=== PATIENT | male | born 1960 | race Hispanic/Latino ===

== ENCOUNTER 2018-03-12 20:16 | Inpatient (IN) | payer OTHER ==
[2018-03-12 21:22] LABS: Potassium 3.6 mmol/L (3.5-5.1)
--- NOTE | 2018-03-12 21:28 | EDPHYS ---
Physician Documentation [facility] Name: Javier Saravia Age: 57 yrs Sex: Male : 1960 Arrival Date: 03/12/2018 Time: 20:20 Bed 5 Private MD: Ernie Eric C ED Physician Slim Fuchs HPI: 03/12 20:46 This 57 yrs old Male presents to ER via Ambulatory with complaints of rn CELLULITIS. 20:46 The patient presents with cellulitis of the left leg. Description: erythematous, rn swollen, warm. Onset: The symptoms/episode began/occurred 4 day(s) ago. Modifying factors: the symptoms are alleviated by nothing, the symptoms are aggravated by squeezing the lesion and expressing the contents, touching. Severity of symptoms: At their worst the symptoms were mild, in the emergency department the symptoms are unchanged. The patient has not experienced similar symptoms in the past. The patient has not recently seen a physician. Reports on abx for 4 days now, treated for cellulitis, by Dr. Eric, has psoriasis and was in high [place] recently, despite abx, cellulitis getting worse, + increased swelling and drainage from wounds, no fever. . Historical: - Allergies: 20:28 Codeine (Vomiting, Upset stomach); aj1 - Home Meds: 20:28 bumetanide 1 mg Oral tab 0.5 tab once daily [Active]; amlodipine 10 mg tab 1 tab once aj1 daily [Active]; pantoprazole 40 mg Oral TbEC once daily [Active]; propranolol 10 mg Oral tab once a day [Active]; amiloride 5 mg oral tab 1 tab once daily [Active]; - PMHx: 20:28 Cirrhosis; Hypertension; psoriasis; aj1 - PSHx: 20:28 finger surgery; ankle surgery; Hernia repair; Knee surgery; aj1 - Immunization history:: Flu vaccine is not up to date. - Social history:: Smoking status: Patient/guardian denies using tobacco. - Ebola Screening: : Patient denies travel to an Ebola-affected area in the 21 days before illness onset. - Family history:: not pertinent. - Hospitalizations: : No recent hospitalization is reported. ROS: 20:46 Constitutional: Negative for fever, chills, and weight loss, Eyes: Negative for injury, rn pain, redness, and discharge, Neck: Negative for injury, pain, and swelling, Cardiovascular: Negative for chest pain, palpitations, and edema, Respiratory: Negative for shortness of breath, cough, wheezing, and pleuritic chest pain, Abdomen/GI: Negative for abdominal pain, nausea, vomiting, diarrhea, and constipation, MS/Extremity: Negative for injury and deformity, Skin: + rash and swelling Neuro: Negative for headache, weakness, numbness, tingling, and seizure. Exam: 20:46 Constitutional: This is a well developed, well nourished patient who is awake, alert, rn and in no acute distress. Head/Face: Normocephalic, atraumatic. Cardiovascular: Regular rate and rhythm with a normal S1 and S2. No gallops, murmurs, or rubs. Normal PMI, no JVD. No pulse deficits. Respiratory: Lungs have equal breath sounds bilaterally, clear to auscultation and percussion. No rales, rhonchi or wheezes noted. No increased work of breathing, no retractions or nasal flaring. Abdomen/GI: soft, non-tender Skin: Warm, dry, 2+ edema of LLE with greater circumference than RLE, + weeping wounds and bullae, +erythema and warmth, no streaking MS/ Extremity: Pulses equal, no cyanosis. Neuro: Awake and alert, GCS 15, oriented to person, place, time, and situation. Cranial nerves II-XII grossly intact. Motor strength 5/5 in all extremities. Sensory grossly intact. Cerebellar exam normal. Normal gait. Vital Signs: 20:28 BP 119 / 56; Pulse 70; Resp 18; Temp 97.2; Pulse Ox 99% on R/A; Weight 112.94 kg (R); aj1 Height 5 ft. 8 in. (172.72 cm) (R); Pain 7/10; 22:49 BP 120 / 63; Pulse 61; Resp 16 S; Pulse Ox 98% on R/A; jd3 23:51 BP 118 / 64; Pulse 65; Resp 16 S; Pulse Ox 98% on R/A; jd3 20:28 Body Mass Index 37.86 (112.94 kg, 172.72 cm) aj MDM: 20:30 Patient medically screened. rn 21:26 Differential diagnosis: cellulitis. Data reviewed: vital signs, nurses notes, lab test rn result(s), and as a result, I will admit patient. Counseling: I had a detailed discussion with the patient and/or guardian regarding: the historical points, exam findings, and any diagnostic results supporting the discharge/admit diagnosis, lab results, the need for further work-up and treatment in the hospital. Admission orders: after a detailed discussion of the patient's condition and case, the admit orders are written by me. ED course: Admitted to jodie Betancourt ordered, admit for failure of outpt therapy. . 03/12 20:37 Order name: CBC with Diff rn 03/12 20:37 Order name: Basic Metabolic Panel; Complete Time: 21:25 rn 03/12 20:37 Order name: Blood Culture Adult (2) rn 03/12 20:37 Order name: Procalcitonin rn 03/12 20:37 Order name: Wound Culture rn 03/12 21:35 Order name: Basic Metabolic Panel EDMS 03/12 21:35 Order name: Heart Healthy EDMS 03/12 21:35 Order name: Basic Metabolic Panel EDMS 03/12 21:35 Order name: CBC with Automated Diff EDMS 03/12 21:35 Order name: CBC with Automated Diff EDMS 03/12 22:32 Order name: Manual Differential EDMS 03/12 20:37 Order name: IV Start; Complete Time: 20:45 rn Administered Medications: 21:57 Drug: Zosyn 3.375 grams Route: IVPB; Infused Over: 60 mins; Site: right antecubital; lp1 23:09 Follow up: Response: No adverse reaction; IV Status: Completed infusion jd3 23:00 Drug: Demerol - Meperidine 12.5 mg Route: IVP; Site: right antecubital; jd3 23:19 Follow up: Response: No adverse reaction jd3 23:09 Drug: vancoMYCIN 1 grams Route: IVPB; Infused Over: 2 hrs; Site: right antecubital; jd3 23:19 Follow up: IV Status: Infusion continued upon admission jd3 Disposition: 03/12/18 21:27 Hospitalization ordered by Ernie Eric for Inpatient Admission. Preliminary diagnosis is Cellulitis of left lower limb. - Bed requested for Telemetry/MedSurg (Inpatient). - Status is Inpatient Admission. jd3 - Condition is Stable. - Problem is an ongoing problem. - Symptoms are unchanged. UTI on Admission? No Signatures: Dispatcher [employer] EDMS Rosemarie Singh RN RN aj1 Josie Moore RN RN Slim Paez MD MD rn Pena, Laura, RN RN lp1 Fazal Moore RN RN jd3 Corrections: (The following items were deleted from the chart) 22:02 21:27 Hospitalization Ordered by A Hernesto CORONA for Inpatient Admission. Preliminary kl diagnosis is Cellulitis of left lower limb. Bed requested for Telemetry/MedSurg (Inpatient). Status is Inpatient Admission. Condition is Stable. Problem is an ongoing problem. Symptoms are unchanged. UTI on Admission? No. rn 22:14 22:02 03/12/2018 21:27 Hospitalization Ordered by A Hernesto CORONA for Inpatient Admission. rn Preliminary diagnosis is Cellulitis of left lower limb. Bed requested for Telemetry/MedSurg (Inpatient). Status is Inpatient Admission. Condition is Stable. Problem is an ongoing problem. Symptoms are unchanged. UTI on Admission? No. kl 23:52 22:14 03/12/2018 21:27 Hospitalization Ordered by A Hernesto CORONA for Inpatient Admission. jd3 Preliminary diagnosis is Cellulitis of left lower limb. Bed requested for Telemetry/MedSurg (Inpatient). Status is Inpatient Admission. Condition is Stable. Problem is an ongoing problem. Symptoms are unchanged. UTI on Admission? No. rn
--- NOTE | 2018-03-12 21:28 | ER ---
Nurse's Notes [facility] Name: Javier Saravia Age: 57 yrs Sex: Male : 1960 Arrival Date: 03/12/2018 Time: 20:20 Bed 5 Private MD: Ernie Eric C Diagnosis: Cellulitis of left lower limb Presentation: 03/12 20:21 Presenting complaint: Patient states: He went to Dr. Eric on Wednesday and was aj1 diagnosed with cellulitis of the left leg and was sent home with Rx for Levaquin and Augmentin. He was instructed to come to the ER immediately if the symptoms worsened. Patient states that the redness and increased and he has had more blistering and drainage. Transition of care: patient was not received from another setting of care. Onset of symptoms was March 09, 2018. Risk Assessment: Do you want to hurt yourself or someone else? Patient reports no desire to harm self or others. Initial Sepsis Screen: Does the patient meet any 2 criteria? No. Patient's initial sepsis screen is negative. Does the patient have a suspected source of infection? Yes: Skin breakdown/wound. Care prior to arrival: None. 20:21 Method Of Arrival: Ambulatory aj1 20:21 Acuity: RD 3 aj1 Triage Assessment: 20:28 General: Appears in no apparent distress. comfortable, Behavior is calm, cooperative, aj1 appropriate for age. Pain: Complains of pain in left leg Pain currently is 7 out of 10 on a pain scale. Neuro: Level of Consciousness is awake, alert, obeys commands. Cardiovascular: Patient's skin is warm and dry. Respiratory: Airway is patent Respiratory effort is even, unlabored, Respiratory pattern is regular, symmetrical. Historical: - Allergies: 20:28 Codeine (Vomiting, Upset stomach); aj1 - Home Meds: 20:28 bumetanide 1 mg Oral tab 0.5 tab once daily [Active]; amlodipine 10 mg tab 1 tab once aj1 daily [Active]; pantoprazole 40 mg Oral TbEC once daily [Active]; propranolol 10 mg Oral tab once a day [Active]; amiloride 5 mg oral tab 1 tab once daily [Active]; - PMHx: 20:28 Cirrhosis; Hypertension; psoriasis; aj1 - PSHx: 20:28 finger surgery; ankle surgery; Hernia repair; Knee surgery; aj1 - Immunization history:: Flu vaccine is not up to date. - Social history:: Smoking status: Patient/guardian denies using tobacco. - Ebola Screening: : Patient denies travel to an Ebola-affected area in the 21 days before illness onset. - Family history:: not pertinent. - Hospitalizations: : No recent hospitalization is reported. Screenin:39 Abuse screen: Denies threats or abuse. Nutritional screening: No deficits noted. jd3 Tuberculosis screening: No symptoms or risk factors identified. Fall Risk Ambulatory Aid- None/Bed Rest/Nurse Assist (0 pts). Gait- Normal/Bed Rest/Wheelchair (0 pts) Mental Status- Oriented to own ability (0 pts). Total Bustamante Fall Scale indicates No Risk (0-24 pts). Assessment: 20:36 General: Appears in no apparent distress. uncomfortable, Behavior is calm, cooperative, jd3 appropriate for age. Pain: Complains of pain in right leg and left leg Quality of pain is described as aching. Neuro: Level of Consciousness is awake, alert, obeys commands, Oriented to person, place, time, situation, Appropriate for age. Cardiovascular: Capillary refill < 3 seconds Patient's skin is warm and dry. Respiratory: Airway is patent Respiratory effort is even, unlabored, Respiratory pattern is regular, symmetrical. GI: Abdomen is round non-distended. : No signs and/or symptoms were reported regarding the genitourinary system. EENT: No signs and/or symptoms were reported regarding the EENT system. Derm: Skin is intact, Skin is dry, Skin is normal, Skin temperature is warm Wound noted lower right leg and left leg Wound is weeping wounds, redness and swelling noted. Musculoskeletal: Circulation, motion, and sensation intact. Range of motion: intact in all extremities, Swelling present in lower right leg and left leg. 22:50 Reassessment: Patient appears in no apparent distress at this time. Patient and/or jd3 family updated on plan of care and expected duration. Pain level reassessed. Patient is alert, oriented x 3, equal unlabored respirations, skin warm/dry/pink. 23:51 Reassessment: Patient appears in no apparent distress at this time. Patient and/or jd3 family updated on plan of care and expected duration. Pain level reassessed. Patient is alert, oriented x 3, equal unlabored respirations, skin warm/dry/pink. Vital Signs: 20:28 BP 119 / 56; Pulse 70; Resp 18; Temp 97.2; Pulse Ox 99% on R/A; Weight 112.94 kg (R); aj1 Height 5 ft. 8 in. (172.72 cm) (R); Pain 7/10; 22:49 BP 120 / 63; Pulse 61; Resp 16 S; Pulse Ox 98% on R/A; jd3 23:51 BP 118 / 64; Pulse 65; Resp 16 S; Pulse Ox 98% on R/A; jd3 20:28 Body Mass Index 37.86 (112.94 kg, 172.72 cm) aj1 ED Course: 20:20 Patient arrived in ED. es 20:20 Ernie Eric MD is Private Physician. es 20:25 Triage completed. aj1 20:28 Arm band placed on Patient placed in an exam room. aj1 20:30 Slim Fuchs MD is Attending Physician. rn 20:36 Fazal Moore RN is Primary Nurse. jd3 20:45 Inserted saline lock: 20 gauge in right antecubital area, using aseptic technique. jd3 Blood collected. placed by [employer]. 20:46 Patient has correct armband on for positive identification. Bed in low position. Call jd3 light in reach. Side rails up X 1. Adult w/ patient. 21:27 Ernie Eric MD is Hospitalizing Provider. rn 23:19 No provider procedures requiring assistance completed. Patient admitted, IV remains in lp1 place. Administered Medications: 21:57 Drug: Zosyn 3.375 grams Route: IVPB; Infused Over: 60 mins; Site: right antecubital; lp1 23:09 Follow up: Response: No adverse reaction; IV Status: Completed infusion jd3 23:00 Drug: Demerol - Meperidine 12.5 mg Route: IVP; Site: right antecubital; jd3 23:19 Follow up: Response: No adverse reaction jd3 23:09 Drug: vancoMYCIN 1 grams Route: IVPB; Infused Over: 2 hrs; Site: right antecubital; jd3 23:19 Follow up: IV Status: Infusion continued upon admission jd3 Outcome: 21:27 Decision to Hospitalize by Provider. rn 23:20 Condition: stable lp1 23:20 Instructed on the need for admit. 23:31 Admitted to Med/surg accompanied by tech, via wheelchair, room 204, with chart, Report lp1 called to [place] Reza 23:52 Patient left the ED. jd3 Signatures: Rosemarie Singh RN RN aj1 Annamaria Pablo Roman, MD MD rn Pena, Laura, RN RN lp1 Fazal Moore RN RN jiesha Corrections: (The following items were deleted from the chart) 20:40 20:36 Musculoskeletal: Circulation, motion, and sensation intact. Range of motion: jd3 intact in all extremities, jd3
[2018-03-12] MEDS ORDERED: ONDANSETRON 4 MG/2 ML VIAL IV PRN (21:31)
[2018-03-12] MEDS ORDERED: VANCOMYCIN 1 GM/250 ML BAG ONE (21:51)
[2018-03-12] MEDS ORDERED: PIPER/TAZO/NS 3.375gm 3.375 GM/100 ML BAG ONE (21:52)
[2018-03-12 22:07] LABS: Absolute Lymphocytes (CBC) 1.2 K/uL (0.7-4.9); Absolute Monocytes 1.8 K/uL (0.1-1.3); Absolute Neutrophil 8.2 K/uL (1.8-8.0); Basophils % 0.5 % (0-1.3); Eosinophils % 1.4 % (0-4.4); Hematocrit 37.7 % (39.6-49.0); Lymphocytes % 10.7 % (15.3-44.8); MCH 35.9 pg (27.0-35.0); MCV 103.1 fL (80-100); MPV 9.3 fL (7.6-11.3); Monocytes % 15.7 % (3.3-12.3); RBC Red Blood Cell Count 3.65 M/uL (4.33-5.43)
[2018-03-12 22:31] LABS: Blood Morphology Comment NOT SEEN (NOT SEEN); Platelet Estimate DECR
[2018-03-12] MEDS ORDERED: VANCOMYCIN 1GM/D5W 1 GM/200 ML BAG IV ONE (23:00)
[2018-03-12] MEDS ORDERED: MEPERIDINE HCL 50 MG/ML AMP ONE (23:09)
[2018-03-13] MEDS: NA CHLORIDE 0.9% 1,000 ML IV SCH ×3 (00:12→15:54)
[2018-03-13 01:42] LABS: Urine Appearance CLEAR; Urine Blood NEGATIVE (NEG); Urine Color ORANGE; Urine Glucose NEGATIVE (NEG); Urine Protein NEGATIVE (NEG); Urine Specific Gravity 1.015 (1.005-1.030); Urine pH 5.5 (5.0-7.0)
[2018-03-13 02:38] LABS: Urine Bilirubin 2+ (NEG); Urine Microscopic Reflex ORDER UMIC
[2018-03-13 03:39] LABS: Urine Bacteria <20 /HPF (NONE SEEN); Urine Culture Reflex Order REFLEXED; Urine RBC NONE SEEN /HPF (NONE SEEN)
[2018-03-13] MEDS ORDERED: PIPER/TAZO/NS 3.375gm 3.375 GM/100 ML BAG ONE (03:43)
[2018-03-13] MEDS ORDERED: PIPER/TAZO/NS 3.375gm 3.375 GM/100 ML BAG IVPB SCH (04:00)
[2018-03-13 06:11] LABS: Potassium 3.5 mmol/L (3.5-5.1)
[2018-03-13 06:35] LABS: Absolute Lymphocytes (CBC) 1.3 K/uL (0.7-4.9); Absolute Monocytes 1.5 K/uL (0.1-1.3); Absolute Neutrophil 5.5 K/uL (1.8-8.0); Basophils % 1.3 % (0-1.3); Eosinophils % 2.2 % (0-4.4); Hematocrit 34.5 % (39.6-49.0); Lymphocytes % 14.6 % (15.3-44.8); MCH 35.8 pg (27.0-35.0); MCV 103.1 fL (80-100); MPV 8.9 fL (7.6-11.3); RBC Red Blood Cell Count 3.35 M/uL (4.33-5.43)
[2018-03-13] MEDS ORDERED: VANCOMYCIN/NS 1 gm 1 GM/250 ML BAG IV ONE (07:45)
[2018-03-13] MEDS ORDERED: VANCOMYCIN 1GM/D5W 1 GM/200 ML BAG IV SCH (09:00)
[2018-03-13] MEDS: LACTULOSE 20 GM/30 ML UCUP PO SCH (09:00)
[2018-03-13] MEDS: BUMETANIDE 1 MG TABLET PO SCH (09:02)
[2018-03-13] MEDS: PANTOPRAZOLE 40MG TABLET PO SCH (09:03)
[2018-03-13] MEDS: PROPRANOLOL HCL 10 MG TAB PO SCH ×2 (09:03→20:41)
[2018-03-13] MEDS ORDERED: TRAMADOL HCL 50 MG TAB PO PRN (09:07)
[2018-03-13] MEDS: AMILORIDE HCL 5 MG TABLET PO SCH (09:36)
[2018-03-13] MEDS: GUAIFENESIN/DM 5 ML UCUP PO PRN ×3 (09:37→22:51)
[2018-03-13] MEDS: ACETAMINOPHEN 500 MG TAB PO PRN ×2 (16:56→22:51)
[2018-03-13] MEDS: PIPER/TAZO/NS 3.375gm 3.375 GM/100 ML BAG IVPB SCH (16:57)
[2018-03-13] MEDS ORDERED: VANCOMYCIN 2 GM/500 ML BAG IV SCH (22:00)
[2018-03-14] MEDS: PIPER/TAZO/NS 3.375gm 3.375 GM/100 ML BAG IVPB SCH ×3 (00:16→17:21)
[2018-03-14] MEDS ORDERED: NA CHLORIDE 0.9% 50 ML ONE (00:25)
[2018-03-14] MEDS: NA CHLORIDE 0.9% 1,000 ML IV SCH ×2 (03:12→18:50)
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
[2018-03-14] MEDS: PANTOPRAZOLE 40MG TABLET PO SCH (05:58)
[2018-03-14 08:12] LABS: Absolute Monocytes 1.2 K/uL (0.1-1.3); Absolute Neutrophil 5.6 K/uL (1.8-8.0); Basophils % 0.8 % (0-1.3); Eosinophils % 2.7 % (0-4.4); Hematocrit 35.7 % (39.6-49.0); Lymphocytes % 12.3 % (15.3-44.8); MCV 105.3 fL (80-100); MPV 8.3 fL (7.6-11.3); Monocytes % 14.5 % (3.3-12.3); RBC Red Blood Cell Count 3.39 M/uL (4.33-5.43)
[2018-03-14 08:42] LABS: Potassium 3.8 mmol/L (3.5-5.1)
[2018-03-14] MEDS: BUMETANIDE 1 MG TABLET PO SCH (09:00)
[2018-03-14] MEDS: LACTULOSE 20 GM/30 ML UCUP PO SCH (09:00)
[2018-03-14] MEDS: PROPRANOLOL HCL 10 MG TAB PO SCH ×2 (09:00→21:00)
[2018-03-14] MEDS: AMILORIDE HCL 5 MG TABLET PO SCH (09:35)
[2018-03-14] MEDS: VANCOMYCIN 2 GM in NA CHLORIDE 0.9% 500 ML IVPB SCH (09:40)
[2018-03-14] MEDS: ACETAMINOPHEN 500 MG TAB PO PRN ×2 (11:27→22:26)
[2018-03-14] MEDS: GUAIFENESIN/DM 5 ML UCUP PO PRN ×2 (11:28→22:25)
--- OUTSIDE RECORDS SUMMARY | 2018-03-14 12:01 | XMS REPORT | Clinical Summary ---
:1960 Author Organization [facility] Address [address] [place] [address] Care Team Providers Name Role Phone Provider, Unknown Primary Care Provider Unavailable Allergies Active Allergy Reactions Severity Noted Date Comments Codeine Nausea Only 04/23/2016 Current Medications Prescription Sig. Disp. Refills Start Date End Date Status amLODIPine (NORVASC) Take 10 mg Active 10 mg tablet by mouth daily. pantoprazole Take 1 90 tablet 3 03/19/2017 03/19/2018 Active (PROTONIX) 40 MG EC tablet (40 tabletIndications: mg total) by Alcoholic cirrhosis mouth daily. of liver with ascites, Awaiting liver transplant lactulose 10 gram/15 Take 30 mL 1800 mL 11 09/16/2017 09/16/2018 Active mL (15 mL) (20 g total) solutionIndications: by mouth 2 Alcoholic cirrhosis (two) times of liver with a day. ascites, Awaiting liver transplant, Hepatic encephalopathy AMILoride (MIDAMOR) 5 Take 1 90 tablet 3 09/16/2017 09/16/2018 Active MG tabletIndications: tablet (5 mg Alcoholic cirrhosis total) by of liver with mouth daily. ascites, Awaiting liver transplant, Hepatic encephalopathy BUMETanide (BUMEX) Take 0.5 mg Active 0.5 MG tablet by mouth daily. propranolol (INDERAL) Take 10 mg Active 10 MG tablet by mouth 2 (two) times a day. ergocalciferol Take 50,000 10/27/2017 Discontinued (VITAMIN D2) 50,000 Units by unit capsule mouth. levofloxacin Take 750 mg 09/16/2017 Discontinued (LEVAQUIN) 750 MG by mouth. tablet potassium chloride Take 20 mEq 09/16/2017 Discontinued (K-DUR) 20 MEQ CR by mouth. tablet lactulose 20 gram/30 Take 15 mL 900 mL 11 06/18/2016 06/18/2017 mL (10 g total) solutionIndications: by mouth 2 Hepatic (two) times encephalopathy, a day. Awaiting liver transplant, Cirrhosis of liver with ascites, unspecified hepatic cirrhosis type levothyroxine Take 50 mcg 10/27/2017 Discontinued (SYNTHROID, LEVOXYL) by mouth 50 mcg tablet every morning. propranolol (INDERAL) Take 1 90 tablet 3 12/02/2016 03/19/2017 Discontinued 10 MG tablet (10 tabletIndications: mg total) by Alcoholic cirrhosis mouth daily. of liver with ascites, Awaiting liver transplant BUMETanide (BUMEX) Take 1 90 tablet 3 12/02/2016 03/19/2017 Discontinued 0.5 MG tablet (0.5 tabletIndications: mg total) by Alcoholic cirrhosis mouth daily. of liver with ascites, Awaiting liver transplant pantoprazole Take 1 90 tablet 3 12/02/2016 03/19/2017 Discontinued (PROTONIX) 40 MG EC tablet (40 tabletIndications: mg total) by Alcoholic cirrhosis mouth daily. of liver with ascites, Awaiting liver transplant BUMETanide (BUMEX) 1 Take 1 90 tablet 3 03/19/2017 10/27/2017 Discontinued MG tabletIndications: tablet (1 mg Alcoholic cirrhosis total) by of liver with mouth daily. ascites, Awaiting liver transplant propranolol (INDERAL) Take 1 90 tablet 3 03/19/2017 10/27/2017 Discontinued 10 MG tablet (10 tabletIndications: mg total) by Alcoholic cirrhosis mouth daily. of liver with ascites, Awaiting liver transplant lactulose 10 gram/15 Take 20 g by 09/16/2017 Discontinued mL (15 mL) solution mouth 2 (two) times a day. potassium chloride Take 1 3 tablet 0 09/16/2017 09/19/2017 (K-DUR) 20 MEQ CR tablet (20 tabletIndications: mEq total) Alcoholic cirrhosis by mouth of liver with daily for 3 ascites, Awaiting days. liver transplant, Hepatic encephalopathy Active Problems Problem Noted Date Preop cardiovascular exam 10/26/2017 Overview: Added automatically from request for surgery [id number] Awaiting liver transplant 09/16/2017 Alcoholic cirrhosis of liver with ascites 02/27/2016 Hepatic encephalopathy 02/27/2016 Portal hypertension 02/27/2016 Secondary esophageal varices without bleeding 02/27/2016 Decompensation of cirrhosis of liver 02/27/2016 Encounters Date Type Specialty Care Team Description 03/08/2018 Orders Only Transplant Sid, Alcoholic cirrhosis of liver without ascites (Primary Dx); [facility] Awaiting liver transplant 01/24/2018 Orders Only Transplant Sid, Alcoholic cirrhosis of liver without ascites (Primary Dx); [facility] Awaiting liver transplant; Personal history of noncompliance with medical treatment, presenting hazards to health 2017 Orders Only Transplant Sid, Awaiting liver transplant; [place] [facility] Alcoholic cirrhosis of liver without ascites 10/29/2017 Orders Only Transplant Sid, Awaiting liver transplant; [place] [facility] Alcoholic cirrhosis of liver without ascites 10/27/2017 Hospital Encounter Procedural Rohan Mullen, Alcoholic cirrhosis of liver with ascites; Cardiology Preop cardiovascular exam; Awaiting liver transplant 10/27/2017 Procedure Pass Procedural Cardiology 10/27/2017 Surgery Procedural Rohan Mullen, Cv right and left Cardiology heart cath selective angiography lv [85179 (CPT)] 10/26/2017 Transcribe Orders Transplant Torie Brantley, Alcoholic cirrhosis of liver with ascites (Primary Dx); RN Preop cardiovascular exam; Awaiting liver transplant 10/08/2017 Abstract Transplant Marimar Lau RN 10/08/2017 Telephone Transplant Sid, Increase in [facility] creatinine 10/01/2017 Orders Only Transplant Sid, Awaiting liver transplant; [place] [facility] Alcoholic cirrhosis of liver without ascites 09/27/2017 Telephone Transplant Sid Repat labs next week [facility] 09/16/2017 Hospital Encounter Transplant Ankoma-Sey, Awaiting liver transplant (Primary Dx); MD Reynaldo Alcoholic cirrhosis of liver with ascites 09/16/2017 Hospital Encounter Procedural Ankoma-Sey, Awaiting liver transplant; Cardiology MD Reynaldo Alcoholic cirrhosis of liver without ascites 09/16/2017 Hospital Encounter Transplant Ankoma-Sey, Awaiting liver transplant; MD Reynaldo Alcoholic cirrhosis of liver without ascites 09/16/2017 Hospital Encounter Radiology Ankoma-Sey, Awaiting liver transplant; MD Reynaldo Alcoholic cirrhosis of liver without ascites 09/16/2017 Refill Transplant Sid, Med Refill [facility] 09/16/2017 Telephone Transplant Lor Marcelino Critical Result M, MA 09/03/2017 Orders Only Transplant Sid, Awaiting liver transplant; [place] [facility] Alcoholic cirrhosis of liver without ascites 08/30/2017 Documentation Transplant Sid, MELD updated to 10 [facility] labs due 08/27/2018 07/26/2017 Procedure Pass Radiology 07/26/2017 Orders Only Transplant Sid, Alcoholic cirrhosis of liver without ascites (Primary Dx); [facility] Awaiting liver transplant 07/15/2017 Documentation Transplant Sid, MELD updated to 11, [facility] labs due 10/13/2017 07/14/2017 Hospital Encounter Transplant AnkIsha, Canceled (Scheduling MD Reynaldo Error) 07/13/2017 Telephone Transplant RainBest villalobos TXP LISTING FINANCIALLY APPROVED 07/12/2017 Documentation Transplant Sid, LAB Order [facility] 07/12/2017 Orders Only Transplant Sid, Alcoholic cirrhosis of liver without ascites (Primary Dx); [facility] Awaiting liver transplant 07/12/2017 Telephone Transplant Regina Lawson TXP Approved 07/09/2017 Documentation Transplant Marimar Lau RN 07/08/2017 Orders Only Transplant Sid, Alcoholic cirrhosis of liver without ascites (Primary Dx); [facility] Awaiting liver transplant; BRITT (nonalcoholic steatohepatitis) 07/08/2017 Telephone Transplant José Miguelhe, Speak to Coordinator GAYE Perales 07/08/2017 Telephone Transplant Gurinder Bernardo MA Update Insurance Information 05/27/2017 Telephone Transplant Ryalnd Lor Insurance Coverage GAYE Robertson Questions 05/19/2017 Telephone Transplant Best Rain TXP Medicare Part D Inactive 03/19/2017 Refill Transplant Sid, David Refill [facility] 03/18/2017 Hospital Encounter Transplant Luis Miguel Vazquez Alcoholic cirrhosis MD Chris of liver with ascites (Primary Dx) 03/18/2017 Hospital Encounter Procedural Ankoma-Sey, Awaiting liver transplant; Cardiology MD Reynaldo Alcoholic cirrhosis of liver with ascites 03/18/2017 Hospital Encounter Radiology Ankoma-Sey, Awaiting liver transplant; MD Reynaldo Alcoholic cirrhosis of liver with ascites 03/18/2017 Hospital Encounter Transplant Ankoma-Sey, Awaiting liver transplant; MD Reynaldo Alcoholic cirrhosis of liver with ascites 12/16/2016 Procedure Pass Radiology after 03/13/2017 Social History Tobacco Use Types Packs/Day Years Used Date Never Smoker Smokeless Tobacco: Never Used Alcohol Use Drinks/Week oz/Week Comments No Sex Assigned at Date Recorded Not on file Last Filed Vital Signs Vital Sign Reading Time Taken Blood Pressure 148/75 10/27/2017 5:45 PM CDT Pulse 92 10/27/2017 5:45 PM CDT Temperature 36.7 C (98 F) 10/27/2017 1:25 PM CDT Respiratory Rate 19 10/27/2017 5:45 PM CDT Oxygen Saturation 96% 10/27/2017 5:45 PM CDT Inhaled Oxygen Concentration - - Weight 114 kg (250 lb 4 oz) 10/27/2017 9:19 AM CDT Height 172.7 cm (5' 8") 10/27/2017 9:19 AM CDT Body Mass Index 38.05 10/27/2017 9:19 AM CDT Plan of Treatment Date Type Specialty Care Team Description 01/24/2018 Procedure Pass Transplant 03/24/2018 Appointment Transplant Omar Villarreal MD [address] [place] [address] [place] [phone] 03/24/2018 Appointment Radiology Omar Villarreal MD [address] [place] [address] [place] [phone] 03/24/2018 Appointment Transplant Reynaldo Laguerre MD [address] [place] [address] [place] [phone] 03/24/2018 Appointment Procedural Cardiology Omar Villarreal MD [address] [place] [address] [place] [phone] Health Maintenance Due Date Last Done Comments COLON CANCER SCREENING 2012 SHINGRIX VACCINE (#1) 2012 INFLUENZA VACCINE 01/19/2018 Procedures Procedure Name Priority Date/Time Associated Diagnosis Comments CV RIGHT AND LEFT Routine 10/27/2017 1:05 Preop cardiovascular Results for this HEART CATH SELECTIVE PM CDT exam procedure are in CORONARY LV Alcoholic cirrhosis the results of liver with ascites section. Awaiting liver transplant PROTHROMBIN TIME WITH STAT 10/27/2017 9:30 Results for this INR AM CDT procedure are in the results section. HC COMPLETE BLD COUNT STAT 10/27/2017 9:30 Results for this W/AUTO DIFF AM CDT procedure are in the results section. ECG PRE/POST OP Routine 10/27/2017 9:23 Results for this AM CDT procedure are in the results section. ZZESTIMATED GFR STAT 10/27/2017 9:01 Results for this AM CDT procedure are in the results section. COMPREHENSIVE STAT 10/27/2017 9:01 Results for this METABOLIC PANEL AM CDT procedure are in the results section. ECHOCARDIOGRAM 2D Routine 09/16/2017 1:38 Awaiting liver Results for this COMPLETE W MMODE PM CDT transplant procedure are in SPECTRAL COLOR DOPPLER Alcoholic cirrhosis the results (25248) of liver without section. ascites ZZESTIMATED GFR Routine 09/16/2017 12:25 Results for this PM CDT procedure are in the results section. ALPHA FETOPROTEIN Routine 09/16/2017 12:25 Awaiting liver Results for this PM CDT transplant procedure are in Alcoholic cirrhosis the results of liver without section. ascites HC COMPLETE BLD COUNT Routine 09/16/2017 12:25 Awaiting liver Results for this W/AUTO DIFF PM CDT transplant procedure are in Alcoholic cirrhosis the results of liver without section. ascites PARTIAL THROMBOPLASTIN Routine 09/16/2017 12:25 Awaiting liver Results for this TIME (PTT) PM CDT transplant procedure are in Alcoholic cirrhosis the results of liver without section. ascites PROTHROMBIN TIME WITH Routine 09/16/2017 12:25 Awaiting liver Results for this INR PM CDT transplant procedure are in Alcoholic cirrhosis the results of liver without section. ascites HEPATIC FUNCTION PANEL Routine 09/16/2017 12:25 Awaiting liver Results for this PM CDT transplant procedure are in Alcoholic cirrhosis the results of liver without section. ascites BASIC METABOLIC PANEL Routine 09/16/2017 12:25 Awaiting liver Results for this PM CDT transplant procedure are in Alcoholic cirrhosis the results of liver without section. ascites MRI ABDOMEN W WO Routine 09/16/2017 12:00 Awaiting liver Results for this CONTRAST PM CDT transplant procedure are in Alcoholic cirrhosis the results of liver without section. ascites ECHOCARDIOGRAM 2D Routine 03/18/2017 2:19 Awaiting liver Results for this COMPLETE W MMODE PM CDT transplant procedure are in SPECTRAL COLOR DOPPLER Alcoholic cirrhosis the results (72135) of liver with ascites section. MRI ABDOMEN W WO Routine 03/18/2017 11:52 Awaiting liver Results for this CONTRAST AM CDT transplant procedure are in Alcoholic cirrhosis the results of liver with ascites section. ZZESTIMATED GFR Routine 03/18/2017 10:56 Results for this AM CDT procedure are in the results section. CREATININE LEVEL Routine 03/18/2017 10:56 Results for this AM CDT procedure are in the results section. ZZESTIMATED GFR Routine 03/18/2017 9:55 Results for this AM CDT procedure are in the results section. ALPHA FETOPROTEIN Routine 03/18/2017 9:55 Awaiting liver Results for this AM CDT transplant procedure are in Alcoholic cirrhosis the results of liver with ascites section. HC COMPLETE BLD COUNT Routine 03/18/2017 9:55 Awaiting liver Results for this W/AUTO DIFF AM CDT transplant procedure are in Alcoholic cirrhosis the results of liver with ascites section. PARTIAL THROMBOPLASTIN Routine 03/18/2017 9:55 Awaiting liver Results for this TIME (PTT) AM CDT transplant procedure are in Alcoholic cirrhosis the results of liver with ascites section. PROTHROMBIN TIME WITH Routine 03/18/2017 9:55 Awaiting liver Results for this INR AM CDT transplant procedure are in Alcoholic cirrhosis the results of liver with ascites section. HEPATIC FUNCTION PANEL Routine 03/18/2017 9:55 Awaiting liver Results for this AM CDT transplant procedure are in Alcoholic cirrhosis the results of liver with ascites section. BASIC METABOLIC PANEL Routine 03/18/2017 9:55 Awaiting liver Results for this AM CDT transplant procedure are in Alcoholic cirrhosis the results of liver with ascites section. 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 [facility] [place] pressure is moderate. Pulmonary hypertension is absent. Cardiac output is increased. Mild coronary atherosclerosis but no coronary artery stenosis. Left Ventricle LV systolic pressure is normal. LV end diastolic pressure is elevated. Performing Organization Address City/State/Zipcode Phone Number [facility] [address] [place] [address] Prothrombin time with INR (10/27/2017 9:30 AM)Only the most recent of3 resultswithin the time period is included. Prothrombin time 15.5 (H) 12.0 - 15.0 sec [facility] DEPARTMENT OF PATHOLOGY AND GENOMIC MEDICINE INR 1.2 [facility] DEPARTMENT OF Comment: PATHOLOGY AND GENOMIC The International Normalized Ratio (INR) is a therapeutic MEDICINE monitoring tool for patients who are stable on oral anticoagulant therapy. An INR of 2.0-3.0 is suggested for deep vein thrombosis/pulmonary embolism. Specimen Blood Performing Organization Address City/State/Zipcode Phone Number [facility] DEPARTMENT OF PATHOLOGY AND [address] [place] [address] GENOMIC MEDICINE CBC with platelet and differential (10/27/2017 9:30 AM)Only the most recent of3 resultswithin the time period is included. WBC 5.79 4.50 - 11.00 k/uL [facility] DEPARTMENT OF PATHOLOGY AND GENOMIC MEDICINE RBC 3.96 (L) 4.40 - 6.00 m/uL [facility] DEPARTMENT OF PATHOLOGY AND GENOMIC MEDICINE HGB 11.7 (L) 14.0 - 18.0 g/dL [facility] DEPARTMENT OF PATHOLOGY AND GENOMIC MEDICINE HCT 35.1 (L) 41.0 - 51.0 % [facility] DEPARTMENT OF PATHOLOGY AND GENOMIC MEDICINE MCV 88.6 82.0 - 100.0 fL [facility] DEPARTMENT OF PATHOLOGY AND GENOMIC MEDICINE MCH 29.5 27.0 - 34.0 pg [facility] DEPARTMENT OF PATHOLOGY AND GENOMIC MEDICINE MCHC 33.3 31.0 - 37.0 g/dL [facility] DEPARTMENT OF PATHOLOGY AND GENOMIC MEDICINE RDW - SD 51.0 37.0 - 55.0 fL [facility] DEPARTMENT OF PATHOLOGY AND GENOMIC MEDICINE MPV 9.5 8.8 - 13.2 fL [facility] DEPARTMENT OF PATHOLOGY AND GENOMIC MEDICINE Platelet count 132 (L) 150 - 400 k/uL [facility] DEPARTMENT OF PATHOLOGY AND GENOMIC MEDICINE Nucleated RBC 0.00 /100 WBC [facility] DEPARTMENT OF PATHOLOGY AND GENOMIC MEDICINE Neutrophils 65.0 39.0 - 69.0 % [facility] DEPARTMENT OF PATHOLOGY AND GENOMIC MEDICINE Lymphocytes 19.2 (L) 25.0 - 45.0 % [facility] DEPARTMENT OF PATHOLOGY AND GENOMIC MEDICINE Monocytes 12.1 (H) 0.0 - 10.0 % [facility] DEPARTMENT OF PATHOLOGY AND GENOMIC MEDICINE Eosinophils 2.2 0.0 - 5.0 % [facility] DEPARTMENT OF PATHOLOGY AND GENOMIC MEDICINE Basophils 1.2 (H) 0.0 - 1.0 % [facility] DEPARTMENT OF PATHOLOGY AND GENOMIC MEDICINE Immature granulocytes 0.3Comment: 0.0 - 1.0 % [facility] DEPARTMENT OF "Immature PATHOLOGY AND GENOMIC granulocytes" MEDICINE (promyelocytes, myelocytes, metamyelocytes) Specimen Blood Performing Organization Address City/[facility]/Zipcode Phone Number [facility] DEPARTMENT OF PATHOLOGY AND [address] [place] [address] [facility] MEDICINE ECG Pre/Post Op (10/27/2017 9:23 AM) Ventricular rate 90 [facility]USE Atrial rate 90 [facility] ID interval 144 [facility] QRSD interval 92 [facility] QT interval 446 [facility] QTC interval 545 [facility] P axis 1 54 [facility]USE QRS axis 1 17 [facility] T wave axis 32 [facility] MUSE EKG impression Normal sinus rhythm-Nonspecific T wave [facility] MUSE abnormality-Prolonged QT-Abnormal ECG-No previous ECGs available- Performing Organization Address City/[facility] Phone Number [facility] [address] [place] [address] Estimated GFR (10/27/2017 9:01 AM)Only the most recent of4 resultswithin the time period is included. GFR Non Af Amer 53 (A) mL/min/1.73 m2 [facility] DEPARTMENT OF PATHOLOGY AND GENOMIC MEDICINE GFR Af Amer 64 mL/min/1.73 m2 [facility] DEPARTMENT OF Comment: PATHOLOGY AND GENOMIC Chronic kidney disease: <60 mL/min/1.73m2 MEDICINE Kidney failure: <15 mL/min/1.73m2 The estimated GFR is calculated from the IDMS-traceable Modification of Diet in Renal Disease Equation. The accuracy of the calculation is poor when the creatinine is normal. Calculated values >90 mL/min/1.73m2 are not reported. This equation has not been validated in children (<18 years), women, the elderly (>70 years), or ethnic groups other than Caucasians and Americans. Specimen Plasma specimen Performing Organization Address City/[facility]/Zipcode Phone Number [facility] DEPARTMENT OF PATHOLOGY AND [address] [place] [address] [employer] MEDICINE Comprehensive metabolic panel (10/27/2017 9:01 AM) Sodium 140 135 - 148 mEq/L [facility] DEPARTMENT OF PATHOLOGY AND GENOMIC MEDICINE Potassium 3.4 (L) 3.5 - 5.0 mEq/L [facility] DEPARTMENT OF PATHOLOGY AND GENOMIC MEDICINE Chloride 103 98 - 112 mEq/L [facility] DEPARTMENT OF PATHOLOGY AND GENOMIC MEDICINE CO2 25 24 - 31 mEq/L [facility] DEPARTMENT OF PATHOLOGY AND GENOMIC MEDICINE Anion gap 12 7 - 15 mEq/L [facility] DEPARTMENT OF Comment: PATHOLOGY AND GENOMIC Starting from September , anion gap calculation MEDICINE no longer incorporates potassium. Please note the change. BUN 10 6 - 20 mg/dL [facility] DEPARTMENT OF PATHOLOGY AND GENOMIC MEDICINE Creatinine 1.4 (H) 0.7 - 1.2 mg/dL [facility] DEPARTMENT OF PATHOLOGY AND GENOMIC MEDICINE Glucose 127 (H) 65 - 99 mg/dL [facility] DEPARTMENT OF PATHOLOGY AND GENOMIC MEDICINE Calcium 8.6 8.3 - 10.2 mg/dL [facility] DEPARTMENT OF PATHOLOGY AND GENOMIC MEDICINE Protein 8.5 (H) 6.3 - 8.3 g/dL [facility] DEPARTMENT OF Comment: PATHOLOGY AND GENOMIC 4.6-7.0 g/dL MEDICINE 1 week 4.4-7.6 g/dL 7 months-1year5.1-7.3 g/dL 1-2 years5.6-7.5 g/dL >3 years6.0-8.0 g/dL 18-150 6.3-8.3 g/dL Albumin 2.5 (L) 3.5 - 5.0 g/dL [facility] DEPARTMENT OF PATHOLOGY AND GENOMIC MEDICINE A/G ratio 0.4 (L) 0.7 - 3.8 [facility] DEPARTMENT OF PATHOLOGY AND GENOMIC MEDICINE Alkaline phosphatase 205 (H) 40 - 129 U/L [facility] DEPARTMENT OF PATHOLOGY AND GENOMIC MEDICINE AST 70 (H) 10 - 50 U/L [facility] DEPARTMENT OF PATHOLOGY AND GENOMIC MEDICINE ALT 31 5 - 50 U/L [facility] DEPARTMENT OF PATHOLOGY AND GENOMIC MEDICINE Total bilirubin 1.5 (H) 0.0 - 1.2 mg/dL [facility] DEPARTMENT OF PATHOLOGY AND GENOMIC MEDICINE Specimen Plasma specimen Performing Organization Address City/State/Zipcode Phone Number [facility] DEPARTMENT OF PATHOLOGY AND [address] [place] [phone] [facility] MEDICINE Echocardiogram complete w contrast and 3D if needed (09/16/2017 1:38 PM) [facility] [id number] [facility] [address], [place] [address] Pat.Name:IMER SANCHEZ.ID:[id number] .Date: 09/16/2017 Refer.MD:REYNALDO LAGUERRE MD Exam Time: 12:52:00 PM Study Type:Routine Echo Height:68inWeight: 257lb BSA: 2.28 m2 DOBAge:1960,56Y Sex: MALEBP:122/63 HR:78 bpmSonogrphr: GONZALEZ Tong Pat. Stat.:OutpatientRoom:Treatment 1 Study Status:Final Echo Event ID:[id number] Order ID:[id number] Reason for Study:Liver Transplant Protocol History / Clinical:Hypertension, Cirrhosis Procedures:2D Echo, Colorflow Doppler, Intravenous Definity Contrast, Intravenous Saline Contrast Race:C SUMMARY: LV size is upper limits of normal. Estimated EF is 60-64%. High CO state. LA volume is moderately enlarged. LV filling pressure is normal. Estimated PA systolic pressure is 30 mmHg, assuming a mean RAP of 5 mmHg. Delayed contrast appears in the left atrium after 8 cardiac cycles consistent with transpulmonary shunting. FINDINGS: LV: LV size is upper limits of normal. LV EF is normal. Overall wallmotion is normal. Estimated EF is 60-64%. RV: RV size is normal. RV systolic function is normal. LA: LA volume is moderately enlarged. RA: RA size is normal. AO: Aortic root diameter is normal. ALEX: No pericardial effusion. Cntrst: Delayed contrast appears in the left atrium after 8 cardiac cyclesconsistent with transpulmonary shunting. AV: No structural AV abnormalities noted. MV: No structural MV abnormalities noted. PV: No structural PV abnormalities noted. TV: No structural TV abnormalities noted. [place]: LV relaxation is normal. LV filling pressure is normal. Other:Estimated PA systolic pressure is 30 mmHg, assuming a mean RAPof 5 mmHg. MEASUREMENTS: 2D Parasternal Long Barton LVOT 2.5 cmLA Ds4.8 cm LVIDd5.9 cmIndex2.6 cm/m Ao An2.8 cm LVIDs4.2 cmAo Rtd 3.5 cm Index1.5 cm/m LV%fs 29 % LV Jmpp111.2 g(122-174) IVSd 1 cmLVM Mebsu939.1 g/m2 LVPWd1 cmRWT0.3 LA Sng Plane LA Area 27.3 cm2(8.8-23.4) LA Vol95.2 ml Index41.8 ml/m LA LngAx 6.5 cm RA Sng Plane RA Area 18.9 cm2(8.3-19.5) RA Vol48.2 ml Index21.1 ml/m RA LngAx 5.8 cm DOPPLER LVOT For Flow LVOT Area4.9 cm2 LVOT SV152.4 ml UAKXteCwm588.5 cm/sHR83.9 bpm LVOTpkPG 9.5 mmHgLVOT CO 12.8 l/min LVOTmnPG 5.3 mmHgLVOT CI5.6 l/m/m2 LVOT TVI31 cm Signed 09/20/2017 11:57 AM Jose Garcia M.D. Procedure Note Interface, Radiology Results In - 09/20/2017 11:57 AM CDT Echocardiography Report [id number] [place] [address] Pat.Name: IMER SANCHEZ ISA Pat.ID: [id number] .Date: 09/16/2017 Refer.: REYNALDO LAGUERRE MD Exam Time: 12:52:00 PM Study Type:Routine Echo Height: 68in Weight: 257lb BSA: 2.28 m2 Age: 8 1960,56Y Sex: MALE BP: 122/63 HR: 78 bpm Sonogrphr: GONZALEZ Tong Pat. Stat.:Outpatient Room: Treatment 1 Study Status:Final Echo Event ID:[id number] Order ID: [id number] Reason for Study:Liver Transplant Protocol History / Clinical:Hypertension, Cirrhosis Procedures:2D Echo, Colorflow Doppler, Intravenous Definity Contrast, Intravenous Saline Contrast Race: C SUMMARY: LV size is upper limits of normal. Estimated EF is 60-64%. High CO state. LA volume is moderately enlarged. LV filling pressure is normal. Estimated PA systolic pressure is 30 mmHg, assuming a mean RAP of 5 mmHg. Delayed contrast appears in the left atrium after 8 cardiac cycles consistent with transpulmonary shunting. FINDINGS: LV: LV size is upper limits of normal. LV EF is normal. Overall wall motion is normal. Estimated EF is 60-64%. RV: RV size is normal. RV systolic function is normal. LA: LA volume is moderately enlarged. RA: RA size is normal. AO: Aortic root diameter is normal. ALEX: No pericardial effusion. Cntrst: Delayed contrast appears in the left atrium after 8 cardiac cycles consistent with transpulmonary shunting. AV: No structural AV abnormalities noted. MV: No structural MV abnormalities noted. PV: No structural PV abnormalities noted. TV: No structural TV abnormalities noted. Montalvo: LV relaxation is normal. LV filling pressure is normal. Other: Estimated PA systolic pressure is 30 mmHg, assuming a mean RAP of 5 mmHg. MEASUREMENTS: 2D Parasternal Long Barton LVOT 2.5 cm LA Ds 4.8 cm LVIDd 5.9 cm Index 2.6 cm/m Ao An 2.8 cm LVIDs 4.2 cm Ao Rtd 3.5 cm Index 1.5 cm/m LV%fs 29 % LV Mass 228.2 g (122-174) IVSd 1 cm LVM Index 100.1 g/m2 LVPWd 1 cm RWT 0.3 LA Sng Plane LA Area 27.3 cm2 (8.8-23.4) LA Vol 95.2 ml Index 41.8 ml/m LA LngAx 6.5 cm RA Sng Plane RA Area 18.9 cm2 (8.3-19.5) RA Vol 48.2 ml Index 21.1 ml/m RA LngAx 5.8 cm DOPPLER LVOT For Flow LVOT Area 4.9 cm2 LVOT SV 152.4 ml LVOTpkVel 154.5 cm/s HR 83.9 bpm LVOTpkPG 9.5 mmHg LVOT CO 12.8 l/min LVOTmnPG 5.3 mmHg LVOT CI 5.6 l/m/m2 LVOT TVI 31 cm Signed 09/20/2017 11:57 AM Jose Garcia M.D. Performing Organization Address City/[facility]/Zipcode Phone Number [facility] [address] [place] [address] Alpha fetoprotein (09/16/2017 12:25 PM)Only the most recent of2 resultswithin the time period is included. Alpha fetoprotein 2.3 0.0 - 8.3 ng/mL [facility] DEPARTMENT OF Comment: PATHOLOGY AND GENOMIC The Zhao 8000 AFP immunoassay was used. MEDICINE Results obtained with different assay methods or kits should not be used interchangeably and may be different. Specimen Serum Narrative Performed At result called to and read back by Nahum [facility] DEPARTMENT OF PATHOLOGY AND GENOMIC Jewell/OTCC09/16/2017 1355 by CK. MEDICINE Performing Organization Address City/[facility] Phone Number [facility] DEPARTMENT OF PATHOLOGY AND [address] [place] [address] [facility] Partial thromboplastin time, activated (09/16/2017 12:25 PM)Only the most recent of2 resultswithin the time period is included. PTT 33.7 23.0 - 36.0 sec [facility] DEPARTMENT OF PATHOLOGY Comment: AND [facility] PTT therapeutic range for unfractionated heparin is 61.0-112.0 seconds which corresponds to Anti-Xa 0.3-0.7 U/ml. Specimen Blood Performing Organization Address City/[facility] Phone Number [facility] DEPARTMENT OF PATHOLOGY AND [address] [place] [id number] [facility] MEDICINE Hepatic function panel (09/16/2017 12:25 PM)Only the most recent of2 resultswithin the time period is included. Albumin 2.4 (L) 3.5 - 5.0 g/dL [facility] DEPARTMENT OF PATHOLOGY AND GENOMIC MEDICINE Total bilirubin 2.1 (H) 0.0 - 1.2 mg/dL [facility] DEPARTMENT OF PATHOLOGY AND GENOMIC MEDICINE Bilirubin direct 0.9 (H) 0.0 - 0.3 mg/dL [facility] DEPARTMENT OF PATHOLOGY AND GENOMIC MEDICINE Alkaline phosphatase 203 (H) 40 - 129 U/L [facility] DEPARTMENT OF PATHOLOGY AND GENOMIC MEDICINE Protein 7.8 6.3 - 8.3 g/dL [facility] DEPARTMENT OF Comment: PATHOLOGY AND GENOMIC 4.6-7.0 g/dL MEDICINE 1 week 4.4-7.6 g/dL 7 months-1year5.1-7.3 g/dL 1-2 years5.6-7.5 g/dL >3 years6.0-8.0 g/dL 18-150 6.3-8.3 g/dL ALT 32 5 - 50 U/L [facility] DEPARTMENT OF PATHOLOGY AND GENOMIC MEDICINE AST 59 (H) 10 - 50 U/L [facility] DEPARTMENT OF PATHOLOGY AND GENOMIC MEDICINE Specimen Plasma specimen Performing Organization Address City/[facility] Phone Number [facility] DEPARTMENT OF PATHOLOGY AND [address] [place] [address] [facility] MEDIC[facility] Basic metabolic panel (09/16/2017 12:25 PM)Only the most recent of2 resultswithin the time period is included. Sodium 139 135 - 148 mEq/L [facility] DEPARTMENT OF PATHOLOGY AND GENOMIC MEDICINE Potassium 2.8 (LL) 3.5 - 5.0 mEq/L [facility] DEPARTMENT OF PATHOLOGY AND GENOMIC MEDICINE Chloride 101 98 - 112 mEq/L [facility] DEPARTMENT OF PATHOLOGY AND GENOMIC MEDICINE CO2 26 24 - 31 mEq/L [facility] DEPARTMENT OF PATHOLOGY AND GENOMIC MEDICINE Anion gap 12 7 - 15 mEq/L [facility] DEPARTMENT OF PATHOLOGY Comment: AND [facility] Starting from September , anion gap calculation no longer incorporates potassium. Please note the change. BUN 10 6 - 20 mg/dL [facility] DEPARTMENT OF PATHOLOGY AND GENOMIC MEDICINE Creatinine 1.3 (H) 0.7 - 1.2 mg/dL [facility] DEPARTMENT OF PATHOLOGY AND GENOMIC MEDICINE Glucose 101 (H) 65 - 99 mg/dL [facility] DEPARTMENT OF PATHOLOGY AND GENOMIC MEDICINE Calcium 8.3 8.3 - 10.2 mg/dL [facility] DEPARTMENT OF PATHOLOGY AND GENOMIC MEDICINE Specimen Plasma specimen Performing Organization Address City/State/Zipcode Phone Number [facility] DEPARTMENT OF PATHOLOGY AND [address] [place] [address] [facility] MRI Abdomen W Wo Contrast (09/16/2017 12:00 PM)Only the most recent of2 resultswithin the time period is included. Narrative Performed At EXAMINATION:MRI ABDOMEN W WO CONTRAST RADIANT CLINICAL HISTORY:Z76.82 Awaiting organ transplant status, K70.30 Alcoholic cirrhosis of liver without ascites, HCC Screen TECHNIQUE: Multiplanar, multisequence MRI examination of the abdomen was performed both before and after intravenous administration of Gadolinium. COMPARISON:03/18/2017 IMPRESSION: 1. Small stable hypervascular lesion near the hepatic dome. No new hepatic lesions are identified. 2.Portal vein is patent. 3.Spleen measures 12.6 cm in length. 4.There is some increase in amount of ascites in the abdomen compared to the prior study. 5.Extensive varices again noted in the left upper quadrant. 6.No New lesions are seen in the regional bone marrow. [facility]-[id number] Procedure Note Interface, Radiology Results Incoming - 09/16/2017 1:54 PM CDT EXAMINATION: MRI ABDOMEN W WO CONTRAST CLINICAL HISTORY: Z76.82 Awaiting organ transplant status, K70.30 Alcoholic cirrhosis of liver without ascites, HCC Screen TECHNIQUE: Multiplanar, multisequence MRI examination of the abdomen was performed both before and after intravenous administration of Gadolinium. COMPARISON: 03/18/2017 IMPRESSION: 1. Small stable hypervascular lesion near the hepatic dome. No new hepatic lesions are identified. 2. Portal vein is patent. 3. Spleen measures 12.6 cm in length. 4. There is some increase in amount of ascites in the abdomen compared to the prior study. 5. Extensive varices again noted in the left upper quadrant. 6. No New lesions are seen in the regional bone marrow. [facility]-[id number] Performing Organization Address City/State/Zipcode Phone Number [facility] [address] [place] [address] Echocardiogram complete w contrast and 3D if needed (03/18/2017 2:19 PM) Narrative Performed At [facility] Echocardiography Report [id number] [facility], [facility] [address], [place] [address] Pat.Name:Darrell SANCHEZ.ID:[id number] .Date: 03/18/2017 Refer.MD:REYNALDO LAGUERRE MD Exam Time: 1:12:00 PMStudy Type:Routine Echo Height:68inWeight: 265lb BSA: 2.31 m2 DOBAge:1960,56Y Sex: MALEBP:175/90 HR:67 bpmSonogrphr: GONZALEZ Tong Pat. Stat.:OutpatientRoom:Treatment Room 1 Study Status:Final Echo Event ID:[id number] Order ID:[id number] Reason for Study:Liver transplant protocol, Perioperative function eval-pre non cardiac transplant History / Clinical:Hypertension, Cirrhosis Procedures:2D Echo, Colorflow Doppler, Intravenous Definity Contrast, Intravenous Saline Contrast Race:C SUMMARY: Cannot exlcudethat a small amount of Delayed contrast appears in the left atrium after 7 cardiac cycles consistent with transpulmonary shunting. Unable to assess PA systolic pressure despite use of contrast. FINDINGS: LV: LV size is upper limits of normal. There is mild concentric LVhypertrophy. LV function is normal. Estimated EF is 55-59%. RV: RV size is normal. RV function is normal. LA: LA volume is mildly enlarged. RA: RA size is normal. AO: Aortic root diameter is normal. ALEX: No pericardial effusion. Cntrst: Cannot exlcudethat a small amount of Delayed contrast appearsin the left atrium after 7 cardiac cycles consistentwith transpulmonary shunting. IAS:Atrial septum is normal. AV: No structural AV abnormalities noted. MV: No structural MV abnormalities noted. A trace of mitral regurgitation. PV: No structural PV abnormalities noted. TV: No structural TV abnormalities noted. Montalvo: LV relaxation is reduced, appropriate for age. LV filling pressureis normal. Other:Unable to assess PA systolic pressure despite use of contrast. MEASUREMENTS: 2D Parasternal Long Barton LVOT 2.3 cmLA Ds4.1 cm LVIDd5.6 cmIndex2.4 cm/m Ao An2.5 cm LVIDs4.2 cmAo Rtd 3.4 cm Index1.5 cm/m LV%fs 25.6 % LV Yusj894.4 g(122-174) IVSd 1.3 cmLVM Bxsgn625.9 g/m2 LVPWd1.3 cmRWT0.5 Signed 03/19/2017 03:13 PM Munira Coffey M.D. Procedure Note Interface, Radiology Results In - 03/19/2017 3:14 PM CDT Echocardiography Report [address] [place] [address] Pat.Name: IMER SANCHEZ Lyndsay.ID: [id number] .Date: 03/18/2017 Refer.MD: REYNALDO LAGUERRE MD Exam Time: 1:12:00 PM Study Type:Routine Echo Height: 68in Weight: 265lb BSA: 2.31 m2 Age: 8 1960,56Y Sex: MALE BP: 175/90 HR: 67 bpm Sonogrphr: GONZALEZ Tong Pat. Stat.:Outpatient Room: Treatment Room 1 Study Status:Final Echo Event ID:[id number] Order ID: [id number] Reason for Study:Liver transplant protocol, Perioperative function eval-pre non cardiac transplant History / Clinical:Hypertension, Cirrhosis Procedures:2D Echo, Colorflow Doppler, Intravenous Definity Contrast, Intravenous Saline Contrast Race: C SUMMARY: Cannot exlcude that a small amount of Delayed contrast appears in the left atrium after 7 cardiac cycles consistent with transpulmonary shunting. Unable to assess PA systolic pressure despite use of contrast. FINDINGS: LV: LV size is upper limits of normal. There is mild concentric LV hypertrophy. LV function is normal. Estimated EF is 55-59%. RV: RV size is normal. RV function is normal. LA: LA volume is mildly enlarged. RA: RA size is normal. AO: Aortic root diameter is normal. ALEX: No pericardial effusion. Cntrst: Cannot exlcude that a small amount of Delayed contrast appears in the left atrium after 7 cardiac cycles consistent with transpulmonary shunting. IAS: Atrial septum is normal. AV: No structural AV abnormalities noted. MV: No structural MV abnormalities noted. A trace of mitral regurgitation. PV: No structural PV abnormalities noted. TV: No structural TV abnormalities noted. Montalvo: LV relaxation is reduced, appropriate for age. LV filling pressure is normal. Other: Unable to assess PA systolic pressure despite use of contrast. MEASUREMENTS: 2D Parasternal Long Barton LVOT 2.3 cm LA Ds 4.1 cm LVIDd 5.6 cm Index 2.4 cm/m Ao An 2.5 cm LVIDs 4.2 cm Ao Rtd 3.4 cm Index 1.5 cm/m LV%fs 25.6 % LV Mass 318.4 g (122-174) IVSd 1.3 cm LVM Index 137.9 g/m2 LVPWd 1.3 cm RWT 0.5 Signed 03/19/2017 03:13 PM Munira Coffey M.D. Performing Organization Address City/State/Zipcode Phone Number [facility] [address] [place] [address] Creatinine level (03/18/2017 10:56 AM) Creatinine 1.3 (H)Comment: Testing 0.7 - 1.2 mg/dL [facility] DEPARTMENT OF PATHOLOGY performed on the [employer] AND deeplocal MEDICINE instrument by [place] Garcia [id number] Specimen Plasma specimen Performing Organization Address City/[facility] Phone Number [facility] DEPARTMENT OF PATHOLOGY AND [address] [place] [address] GENOMIC MEDICINE after 03/13/2017 Insurance Payer Benefit Plan / Group Subscriber ID Type Phone Address [employer] MEDICARE [facility] xxxxxxxxx Transplant MEDICARE [id number] [place], [place] [address] IMER SANCHEZ Personal/Family Self 1960 Home: [address] [place] [address] ISA [phone] [place], [place] [phone]
--- NOTE | 2018-03-14 23:24 | PN ---
Date of Progress Note: 03/14/2018 Subjective: The patient was seen this morning for followup. His was present with him at bedsid e. No new complaints or problems reported. He still has some cough. Left leg, the patient feels li ke it is better than yesterday. Objective: Vital Signs: Reviewed. HEENT Examination: Unremarkable. LUNGS: Clear to auscultation. Heart: Sounds normal. Abdomen: Soft. Bowel sounds normal. No guarding, rigidity, tenderness, or distention. Extremities: Trace leg edema on the left leg. Redness on the left leg remains unchanged than yester day. Most blisters that he had prior to this admission has resolved and it is flat now. Laboratory Data: CBC, chemistry, vancomycin level pending this morning. Impression: 1.Cellulitis, left leg. 2.Acute bronchitis. 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 4.Thrombocytopenia. 5.Anemia. 6.Chronic kidney disease, stage 3 to stage 4. Plan: We will continue current medication antibiotic. Pharmacy to adjust vancomycin dosing. We ashutosh l see him tomorrow for followup. Ambulation was encouraged. GENA/MODL Voice ID: [id number] Report ID: [id number]
[2018-03-15] MEDS: PIPER/TAZO/NS 3.375gm 3.375 GM/100 ML BAG IVPB SCH ×3 (01:26→17:30)
[2018-03-15 05:15] VITALS: BMI 39.1
[2018-03-15] MEDS: PANTOPRAZOLE 40MG TABLET PO SCH (06:07)
[2018-03-15] MEDS: NA CHLORIDE 0.9% 1,000 ML IV SCH ×2 (08:00)
[2018-03-15] MEDS: LACTULOSE 20 GM/30 ML UCUP PO SCH (09:00)
[2018-03-15] MEDS: ACETAMINOPHEN 500 MG TAB PO PRN (09:36)
[2018-03-15] MEDS: BUMETANIDE 1 MG TABLET PO SCH (11:52)
[2018-03-15] MEDS: PROPRANOLOL HCL 10 MG TAB PO SCH ×2 (11:53→21:02)
[2018-03-15] MEDS: AMILORIDE HCL 5 MG TABLET PO SCH (12:08)
[2018-03-15] MEDS: HYDROCODONE/APAP 5/325 MG TAB PO PRN ×2 (14:23→21:03)
[2018-03-15] MEDS: ALBUTEROL 2.5 MG/3 ML NEB SOL NEB SCH ×2 (14:53→20:12)
[2018-03-15] MEDS: CLINDAMYCIN INJ 600 MG in NA CHLORIDE 0.9% 50 ML IV SCH (17:32)
--- NOTE | 2018-03-15 18:46 | RAD REPORT ---
EXAM DESCRIPTION: RAD - Chest Single View - 03/15/2018 6:39 pm CLINICAL HISTORY: PICC line placement COMPARISON: November 2010 FINDINGS: Portable chest was obtained following placement of a left upper extremity PICC line. The c atheter tip is in the distal SVC.
[2018-03-15] MEDS ORDERED: DOXYCYCLINE 100 MG in NA CHLORIDE 0.9% 100 ML IVPB SCH (21:00)
[2018-03-15] MEDS: VANCOMYCIN 2 GM in NA CHLORIDE 0.9% 500 ML IVPB SCH (21:04)
--- NOTE | 2018-03-15 23:31 | PN ---
Date of Progress Note: 03/15/2018 Subjective: The patient was seen this morning for followup. No new complaints, problems reported by him or his . He has some pain in his left leg. Objective: Vital Signs: Reviewed. HEENT: Unremarkable. Lungs: Clear to auscultation. No rhonchi, rales. Heart: Sounds normal. Abdomen: Soft. Bowel sounds normal. No guarding, rigidity, tenderness, distention. Extremities: Trace leg edema on the left leg. Area of cellulitis from left leg remains unchanged fr om yesterday and he has 2 or 3 new area of small blisters noted on his left leg. They are very small , probably about 5 mm or less in size. In fact, patient says 2 or 3, but when I examined there were probably more than that. Altogether there were 5 or 6 small areas that they were noted and I am not 100% sure if I saw any of them yesterday, but we will closely on that. The 2 large blisters that he had before he came into ER has resolved. Laboratory Data: Blood culture remains negative. Culture collected from drainage from wound is nega tive. Impression: 1.Left leg cellulitis. 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 3.Chronic kidney disease stage 3 to stage 4. Plan: The patient's creatinine on the last blood test has improved to 1.9. We will continue IV flui d, but reduce rate from 100 cc/hour to 50 cc/hour. Continue vancomycin and Zosyn. We will add clind amycin. Nebulizer treatment was ordered and patient requested some pain medication. We will go ahea d and order pain medication per order. Ambulation was encouraged. I have discussed with patient and his about PICC line placement and order was placed for that. I also informed patient and his w zi that I anticipate him getting IV antibiotic therapy for the duration of treatment of this celluli tis, especially the way it is behaving right now and how he failed outpatient antibiotic therapy. I will see him tomorrow for followup. We also talked about at some point, we will consider to discharg e him to go home with home IV antibiotic therapy. GENA/MODL Voice ID: [id number] Report ID: [id number]
[2018-03-16] MEDS: CLINDAMYCIN INJ 600 MG in NA CHLORIDE 0.9% 50 ML IV SCH ×3 (01:22→17:19)
[2018-03-16] MEDS: PIPER/TAZO/NS 3.375gm 3.375 GM/100 ML BAG IVPB SCH ×3 (01:26→17:19)
[2018-03-16] MEDS: ALBUTEROL 2.5 MG/3 ML NEB SOL NEB SCH ×4 (01:41→21:01)
[2018-03-16] MEDS: HYDROCODONE/APAP 5/325 MG TAB PO PRN ×4 (03:12→21:49)
[2018-03-16] MEDS: NA CHLORIDE 0.9% 1,000 ML IV SCH (04:00)
[2018-03-16 05:13] LABS: Absolute Lymphocytes (CBC) 1.2 K/uL (0.7-4.9); Absolute Monocytes 1.2 K/uL (0.1-1.3); Absolute Neutrophil 4.8 K/uL (1.8-8.0); Basophils % 0.6 % (0-1.3); Eosinophils % 2.3 % (0-4.4); Lymphocytes % 15.6 % (15.3-44.8); MPV 8.8 fL (7.6-11.3); Monocytes % 16.6 % (3.3-12.3)
[2018-03-16 05:15] LABS: Protime INR 1.52
[2018-03-16] MEDS: PANTOPRAZOLE 40MG TABLET PO SCH (05:38)
[2018-03-16 05:44] LABS: Albumin 1.6 g/dL (3.4-5.0); Potassium 4.1 mmol/L (3.5-5.1); Protein, Total 6.6 g/dL (6.4-8.2)
[2018-03-16 05:46] LABS: Thyroid Stimulating Hormone 9.9 uIU/mL (0.360-3.740)
[2018-03-16 05:47] LABS: Bilirubin Total 5.2 mg/dL (0.2-1.0); Magnesium 1.3 mg/dL (1.8-2.4)
[2018-03-16 06:18] LABS: Hematocrit 34.2 % (39.6-49.0); MCV 103.8 fL (80-100)
[2018-03-16 06:19] LABS: MCH 36.8 pg (27.0-35.0)
[2018-03-16] MEDS ORDERED: Magnesium Sulfate 2gm IVPB 2 G/50 ML BAG IV ONE (07:30)
[2018-03-16 08:16] LABS: Anisocytosis SLIGHT; Blood Morphology Comment NOTED (NOT SEEN); Platelet Estimate ADEQ
[2018-03-16] MEDS: LACTULOSE 20 GM/30 ML UCUP PO SCH ×2 (09:00→09:50)
[2018-03-16] MEDS: PROPRANOLOL HCL 10 MG TAB PO SCH ×2 (09:45→20:29)
[2018-03-16] MEDS: BUMETANIDE 1 MG TABLET PO SCH (09:48)
[2018-03-16] MEDS: HEPARIN 5000 UNIT/ML 1 ML VIAL SQ SCH ×2 (09:49→20:30)
[2018-03-16] MEDS: AMILORIDE HCL 5 MG TABLET PO SCH (10:57)
--- NOTE | 2018-03-17 00:08 | PN ---
Date of Progress Note: 03/16/2018 Subjective: The patient was seen at this morning for followup. No new complaints or problems report ed. His cough and chest congestion is better. Objective: Vital Signs: Reviewed. HEENT: Unremarkable. Lungs: Clear to auscultation. Heart: Sounds normal. Abdomen: Soft bowel sounds normal. No guarding, rigidity, tenderness, distention. Extremities: Trace left leg edema unchanged. Area of cellulitis from left leg remains unchanged. T he patient had approximately 5 new blisters noted yesterday. They were all small, 2 of them near the lower leg/ankle area has disappeared/resolved, but 3 on the upper part of the leg has actually doubl ed in size, there are about 5 to 6 mm in size today with some fluid collection. Laboratory Data: White count 7.4, hemoglobin 11.8, platelets 144. His procalcitonin level this morn ing is 0.69, which is better than day before yesterday. TSH 9.9. Sodium 139, potassium 4.1 chloride 109, bicarb 22, BUN 25, creatinine 1.80, glucose 81, total bilirubin 5.2. SGOT 67, SGPT 20. Hemogl obin A1c 4. Impression: 1.Cellulitis, left leg. 2.Cirrhosis of liver, alcohol related. 3.Chronic kidney disease stage 3 to stage 4. 4.Thrombocytopenia. Plan: We will continue vancomycin, Zosyn, and clindamycin. Nurse was advised to send culture from [facility] blister this morning. Blood culture has remained negative and fluid culture collected from left l eg when he came into emergency room is negative so far. The patient's area of cellulitis, the distri bution has not gotten any worse from the time of admission. It has remained unchanged, but it has no t shown any meaningful improvement either. What we have seen in terms of worsening is new area of bl ister formation. As of yesterday and today it got larger in size. The patient's MELD score is 23 an d according to the patient's , his last score with his liver specialist was 13, so definitely it has gone up to this time. Per patient and his 's request, I did call his liver specialist, Dr. Ernie Pena, this morning and details were discussed with him and Dr. Bah and myself we both agr ee that it will be good for the patient to have a higher level of care in [place] where his liver spe cialist is and Dr. Bah has agreed to except the patient and his partner was contacted, who is on hospital call will be accepting along with the hospitalist and the patient will be going to [facility] once [facility] has a bed available. Transfer process was initiated this marcelasatya orosco and the patient and his were notified. This evening, I went back to check on the patient. He is still in the hospital as we do not have acceptance or a bed available from [facility]. S o, we will continue current medical management. His leg cellulitis does not look any worse than this morning, in fact the blisters that he had this morning all of them are flat this evening. There are no new blisters. So at this point, we will continue current antibiotics that he is on and as soon a s the patient gets accepted, we will be transferring him via ground ambulance. He is stable for phipps sarahy. GENA/MODL Voice ID: [id number] Report ID: [id number]
[2018-03-17] MEDS ORDERED: NA CHLORIDE 0.9% 250 ML ONE ×2 (00:28→00:29)
[2018-03-17] MEDS: CLINDAMYCIN INJ 600 MG in NA CHLORIDE 0.9% 50 ML IV SCH ×3 (00:49→16:44)
[2018-03-17] MEDS: PIPER/TAZO/NS 3.375gm 3.375 GM/100 ML BAG IVPB SCH ×3 (01:38→16:43)
[2018-03-17] MEDS: ALBUTEROL 2.5 MG/3 ML NEB SOL NEB SCH ×4 (03:21→20:00)
[2018-03-17] MEDS: HYDROCODONE/APAP 5/325 MG TAB PO PRN ×4 (03:33→22:36)
[2018-03-17] MEDS: PANTOPRAZOLE 40MG TABLET PO SCH (05:49)
[2018-03-17] MEDS: LEVOTHYROXINE SOD 0.05 MG TABLET PO SCH (05:49)
[2018-03-17] MEDS ORDERED: NA CHLORIDE 0.9% 0 ML ONE (08:02)
--- NOTE | 2018-03-17 09:44 | RAD REPORT ---
EXAM DESCRIPTION: USExtrem Venous W Compress Bil03/17/2018 9:31 am CLINICAL HISTORY: Bilateral leg swelling/pain COMPARISON: none FINDINGS: The common femoral, superficial femoral, popliteal and posterior tibial veins bilaterally are compressible and demonstrate augmentation. Doppler demonstrates good flow. A 4.4 x 1.6 x 3 centimeter left inguinal lymph node is present. IMPRESSION: No evidence of deep venous thrombosis involving either lower extremity. A 4.4 x 1.6 x 3 centimeter left inguinal lymph node is present. This probably is reactive in nature. A followup ultrasound in 3 months is recommended to assess stability
[2018-03-17] MEDS: VANCOMYCIN 2 GM in NA CHLORIDE 0.9% 500 ML IVPB SCH (10:09)
[2018-03-17] MEDS: LACTULOSE 20 GM/30 ML UCUP PO SCH (10:11)
[2018-03-17] MEDS: AMILORIDE HCL 5 MG TABLET PO SCH (10:11)
[2018-03-17] MEDS: PROPRANOLOL HCL 10 MG TAB PO SCH ×2 (10:12→21:36)
[2018-03-17] MEDS: BUMETANIDE 1 MG TABLET PO SCH (10:12)
[2018-03-17] MEDS: HEPARIN 5000 UNIT/ML 1 ML VIAL SQ SCH ×2 (10:33→21:37)
--- NOTE | 2018-03-17 11:44 | PN ---
Date of Progress Note: 03/17/2018 Subjective: The patient was seen this morning for followup. No new complaints or problems reported by him overnight. Objective: Vital Signs: Reviewed. Remains afebrile. HEENT: Examination unremarkable. Lungs: Clear to auscultation. No rhonchi or rales. Heart: Sounds normal. Abdomen: Soft. Bowel sounds normal. No guarding, rigidity, tenderness, distention. Extremities: Trace left leg edema unchanged from yesterday. Area of cellulitis from left leg today is the first day that I see improvement. Distribution of cellulitis from left leg remains unchanged but the intensity is better today. Instead of pink and red skin now I am seeing a brown discoloratio n of the skin. There is no new blister formation today compared to yesterday morning and yesterday e yaa's exam. The patient's left medial thigh has some vague knots on the lower medial aspect. Yes terday, he had some on the upper aspect, but I do not feel that today, but I do feel one area of such abnormality in the lower medial left thigh. Laboratory Data: Cultures remains negative so far. Impression: 1.Cellulitis, left leg. 2.Acute bronchitis. 3.Chronic kidney disease, stage 3 to stage 4. 4.Cirrhosis, alcohol related. Plan: We will go ahead and continue current antibiotics. We are still awaiting on bed availability at [facility]. Meanwhile, the patient has responded well to antibiotic in last 24 hours. So , what we will do is, if we get bed available today, we will transfer via ground ambulance. If by to rey patient still ends up staying at our facility and if I see more improvement between today and tomorrow, then I will request transfer order to be canceled and the patient and patient's they b [facility] are in agreement with that. In that case if he ended up cancelling transfer, we will continue hi s IV antibiotic treatment here and hopefully next week we will decide about discharging him to [facility] with home IV antibiotic therapy. All these details and plan of treatment discussed with the patien t and his . The patient is on heparin for DVT prophylaxis. We will go ahead and get a venous Do ppler done on his leg to rule out DVT and we will order some blood work tomorrow to reassess his MELD score. Today, his yellowish discoloration of the eye that was noted 2 to 3 days ago is significantl y better today compared to 2 to 3 days ago. GENA/MODL Voice ID: [id number] Report ID: [id number]
[2018-03-18] MEDS: CLINDAMYCIN INJ 600 MG in NA CHLORIDE 0.9% 50 ML IV SCH ×2 (00:32→08:57)
[2018-03-18] MEDS: ALBUTEROL 2.5 MG/3 ML NEB SOL NEB SCH ×4 (01:29→20:00)
[2018-03-18] MEDS: PIPER/TAZO/NS 3.375gm 3.375 GM/100 ML BAG IVPB SCH ×2 (01:48→08:58)
[2018-03-18] MEDS: HYDROCODONE/APAP 5/325 MG TAB PO PRN ×4 (05:20→22:40)
[2018-03-18] MEDS: PANTOPRAZOLE 40MG TABLET PO SCH (05:21)
[2018-03-18] MEDS: LEVOTHYROXINE SOD 0.05 MG TABLET PO SCH (05:21)
[2018-03-18 05:51] LABS: Protime INR 1.44
[2018-03-18 05:52] LABS: Albumin 1.5 g/dL (3.4-5.0); Bilirubin Total 3.9 mg/dL (0.2-1.0); Magnesium 1.8 mg/dL (1.8-2.4); Potassium 4.2 mmol/L (3.5-5.1); Protein, Total 6.2 g/dL (6.4-8.2)
[2018-03-18] MEDS ORDERED: MAGNESIUM SULFATE 1 gm IVPB 1 GM/100 ML BAG IV ONE (06:02)
[2018-03-18 06:37] LABS: Absolute Lymphocytes (CBC) 1.3 K/uL (0.7-4.9); Absolute Neutrophil 5.9 K/uL (1.8-8.0); Basophils % 0.7 % (0-1.3); Eosinophils % 3.4 % (0-4.4); Hematocrit 33.2 % (39.6-49.0); Lymphocytes % 15.1 % (15.3-44.8); MCH 35.7 pg (27.0-35.0); MCV 105.7 fL (80-100); MPV 8.4 fL (7.6-11.3); Monocytes % 11.4 % (3.3-12.3); RBC Red Blood Cell Count 3.13 M/uL (4.33-5.43)
[2018-03-18] MEDS: HEPARIN 5000 UNIT/ML 1 ML VIAL SQ SCH ×2 (08:58→20:41)
[2018-03-18] MEDS: PROPRANOLOL HCL 10 MG TAB PO SCH ×2 (08:59→20:40)
[2018-03-18] MEDS: LACTULOSE 20 GM/30 ML UCUP PO SCH (08:59)
[2018-03-18] MEDS: BUMETANIDE 1 MG TABLET PO SCH (09:00)
[2018-03-18] MEDS: AMILORIDE HCL 5 MG TABLET PO SCH (09:00)
--- NOTE | 2018-03-18 10:35 | RAD REPORT ---
EXAM DESCRIPTION: RAD - Chest Pa And Lat (2 Views) - 03/18/2018 10:17 am CLINICAL HISTORY: acute bronchitis Chest pain. COMPARISON: Chest Single View dated 03/15/2018; CHEST PA AND LAT 2 VIEW dated 01/19/2011; CHEST SINGLE VIEW dated 10/24/2008 FINDINGS: The lungs are clear. The heart is normal in size. No displaced fractures. Left-sided PICC line has tip in the SVC. IMPRESSION: No acute or concerning finding suspected.
[2018-03-18] MEDS: DOXYCYCLINE 100 MG in NA CHLORIDE 0.9% 100 ML IVPB SCH ×2 (11:25→20:39)
[2018-03-18] MEDS: CEFTRIAXONE/SWI 1gm 1 GM/10 ML SYR IV SCH ×2 (11:25→20:39)
--- NOTE | 2018-03-18 15:37 | PN ---
Date of Progress Note: 03/18/2018 Subjective: The patient was seen this morning for followup. He was lying in bed, not in any distres s. No new complaints or problems reported by him. His pain from left leg is much better as he repor rodrigo. He still has some cough and chest congestion, not able to cough up any mucus, but overall that symptoms also he describes as better than before. No nausea, no vomiting. Objective: Vital Signs: Reviewed. HEENT: Unremarkable. Lungs: Clear to auscultation. Heart: Sounds normal. Abdomen: Soft. Bowel sounds normal. No guarding, rigidity, tenderness, or distention. Extremity: Left leg trace edema. Area of cellulitis remains unchanged, but today I see [address] type of lesions on his left leg and they all are less than 5 mm in size and these are new compare d to yesterday's exam. Laboratory Data: White count 8.5, hemoglobin 11.2, platelets 145. Sodium 141, potassium 4.2, chlori de 112, bicarb 21, BUN 20, creatinine 1.60, glucose 92, total bilirubin 3.9, and the patient's MELD s core today is 20, and it was 23 day before yesterday. Impression: 1.Cellulitis, left leg. 2.Cirrhosis, related to alcohol use. 3.Chronic kidney disease, stage 3. 4.Acute bronchitis. Plan: We will go ahead and get a chest x-ray done today to make sure the patient does not have any p neumonia. Continue. Nebulizer treatment. So far, all his cultures are negative. We will continue vancomycin, and I will go ahead and discontinue his Zosyn as well as clindamycin will be discontinued . We will initiate 2 other new antibiotics ceftriaxone as well as doxycycline per order. We are sti ll waiting on bed availability at [facility]. As soon as that bed becomes available, our hardeep n is to transfer him to [place] to [facility] for higher level of care. Meanwhile, if we hav e our Infectious Disease consult available, Dr. Funez, we will request consultation from him. GENA/MODL Voice ID: [id number] Report ID: [id number]
[2018-03-18] MEDS: VANCOMYCIN 2 GM in NA CHLORIDE 0.9% 500 ML IVPB SCH (21:35)
[2018-03-19] MEDS: ALBUTEROL 2.5 MG/3 ML NEB SOL NEB SCH ×2 (01:25→07:36)
[2018-03-19] MEDS: HYDROCODONE/APAP 5/325 MG TAB PO PRN ×2 (04:30→10:33)
[2018-03-19 05:15] LABS: Magnesium 1.8 mg/dL (1.8-2.4); Potassium 4.4 mmol/L (3.5-5.1)
[2018-03-19] MEDS: LEVOTHYROXINE SOD 0.05 MG TABLET PO SCH (05:30)
[2018-03-19] MEDS: PANTOPRAZOLE 40MG TABLET PO SCH (05:30)
[2018-03-19] MEDS ORDERED: MAGNESIUM SULFATE 1 gm IVPB 1 GM/100 ML BAG IV ONE (06:00)
[2018-03-19 07:41] VITALS: O2SAT 99
[2018-03-19] MEDS: PROPRANOLOL HCL 10 MG TAB PO SCH (09:00)
[2018-03-19] MEDS: LACTULOSE 20 GM/30 ML UCUP PO SCH (09:00)
[2018-03-19] MEDS: CEFTRIAXONE/SWI 1gm 1 GM/10 ML SYR IV SCH (09:08)
[2018-03-19] MEDS: BUMETANIDE 1 MG TABLET PO SCH (09:09)
[2018-03-19] MEDS: AMILORIDE HCL 5 MG TABLET PO SCH (09:09)
[2018-03-19] MEDS: HEPARIN 5000 UNIT/ML 1 ML VIAL SQ SCH (09:11)
[2018-03-19] MEDS: DOXYCYCLINE 100 MG in NA CHLORIDE 0.9% 100 ML IVPB SCH (10:00)
[2018-03-19 10:30] VITALS: BP 124/63; TEMP 98
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
== END 2018-03-19 10:45 | disposition short-term general hospital (02) | DRG 603 ==
LOC: ER 20:16 → ERHOLD 21:30 → 2ND 23:22
PROVIDERS: ADMIT Internal Medicine; ATTEND Internal Medicine
PROC: 02HV33Z Insertion of Infusion Device into Superior Vena Cava, Percutaneous Approach (ICD-10-PCS; principal; 2018-03-15)
DX: L03.116 Cellulitis of left lower limb (principal); I12.9 Hypertensive chronic kidney disease with stage 1 through stage 4 chronic kidney disease, or unspecified chronic kidney disease; N18.3 Chronic kidney disease, stage 3 (moderate); E03.9 Hypothyroidism, unspecified; L40.9 Psoriasis, unspecified; K70.30 Alcoholic cirrhosis of liver without ascites; J20.9 Acute bronchitis, unspecified; D64.9 Anemia, unspecified; D69.6 Thrombocytopenia, unspecified; E86.9 Volume depletion, unspecified
CPT/HCPCS: 36415; 71045; 71046; 80048; 80053; 80202; 81003; 81015; 83036; 83735; 84145; 84439; 84443; 85025; 85610; 87040; 87070; 87086; 87088; 87205; 93970; 94640; 96365; 96375; 99285; J0696; J1644; J2175; J2543; J3370; J3475; J7030

== ENCOUNTER 2019-09-16 16:36 | Emergency (ER) | payer OTHER ==
--- NOTE | 2019-09-16 18:07 | RAD REPORT ---
EXAM DESCRIPTION: RAD - Chest Single View - 09/16/2019 5:21 pm CLINICAL HISTORY: fall, right sided rib pain Chest pain. COMPARISON: Chest Pa And Lat (2 Views) dated 03/18/2018; Chest Single View dated 03/15/2018; CHEST PA AND LAT 2 VIEW dated 01/19/2011; CHEST SINGLE VIEW dated 10/24/2008 FINDINGS: Portable technique limits examination quality. The lungs are grossly clear. The heart is upper limit of normal in size. No displaced fractures. IMPRESSION: No acute intrathoracic process suspected.
[2019-09-16] MEDS ORDERED: HYDROCODONE/APAP 5/325 MG TAB ONE (18:14)
--- NOTE | 2019-09-16 18:19 | EDPHYS ---
Physician Documentation [facility] Name: Javier Saravia Age: 58 yrs Sex: Male : 1960 Arrival Date: 09/16/2019 Time: 16:40 Bed 6 Private MD: Ernie Eric C ED Physician Karsten Calvert Historical: - Allergies: 09/15 16:46 Codeine (Vomiting, Upset stomach); aa5 - PMHx: 16:46 Cirrhosis; Hypertension; psoriasis; aa5 - PSHx: 16:46 finger surgery; ankle surgery; Hernia repair; Knee surgery; aa5 16:46 Liver transplant; aa5 - Immunization history:: Flu vaccine is up to date. - Social history:: Smoking status: Patient denies any tobacco usage or history of. Vital Signs: 16:46 BP 126 / 69; Pulse 62; Resp 16 S; Temp 98.1(O); Pulse Ox 98% on R/A; Weight 108.86 kg aa5 (R); Height 5 ft. 7 in. (170.18 cm) (R); Pain 4/10; 17:30 BP 127 / 73; Pulse 67; Resp 18 S; Pulse Ox 96% on R/A; aa5 18:10 BP 116 / 70; Pulse 66; Resp 16 S; Pulse Ox 96% on R/A; aa5 16:46 Body Mass Index 37.59 (108.86 kg, 170.18 cm) aa5 MDM: 16:52 Patient medically screened. esha 18:17 Data reviewed: vital signs, nurses notes. Counseling: I had a detailed discussion with nahum the patient and/or guardian regarding: the historical points, exam findings, and any diagnostic results supporting the discharge/admit diagnosis, radiology results, the need for outpatient follow up, to return to the emergency department if symptoms worsen or persist or if there are any questions or concerns that arise at home. ED course: Abdomen benign, cxr clear. Patient is advised to follow up with pcp for reevaluation. Patient is otherwise given strict return precautions. Patient understood and agrees with the plan of care. . 09/15 17:08 Order name: Chest Single View XRAY; Complete Time: 18:09 nahum Administered Medications: 17:33 CANCELLED (other medication used): traMADol 50 mg PO once; RASS on ADMIN: Combtv4, Very jmm Agttd3, Agttd2, Rstlss1, AlertClm0, Drwsy-1, Lt Sdtn-2, Mod Sdtn-3, Dp Sdtn-4, UnArsble-5 18:10 Drug: [place] 5 mg-325 mg 1 tabs Route: PO; aa5 18:30 Follow up: Response: No adverse reaction aa5 Disposition: 09/16 13:50 Co-signature as Attending Physician, Karsten Calvert MD I agree with the assessment and [facility] plan of care. Disposition: 09/16/19 18:18 Discharged to Home. Impression: Rib Contusion. - Condition is Stable. - Discharge Instructions: Rib Contusion. - Prescriptions for Zofran ODT 4 mg Oral tablet,disintegrating - place 1 tablet by TRANSLINGUAL route every 4-6 hours; 20 tablet. Tylenol- Codeine #3 300-30 mg Oral Tablet - take 1 tablet by ORAL route every 6 hours As needed; 12 tablet. - Medication Reconciliation Form, Thank You Letter, Antibiotic Education, Prescription Opioid Use form. - Follow up: Ernie Eric MD; When: 2 - 3 days; Reason: Recheck today's complaints, Continuance of care, Re-evaluation by your physician. Addendum: 09/29/2019 23:09 Addendum: This is a 58 year old male with a history liver cirrhosis that presents to [facility] the ED with complaints of right sided rib pain after falling on the ground. Patient states he tripped on a hose. Patient denies abdominal pain. ROS: positive for chest wall pain, negative for abdominal pain. Otherwise negative. PE: Gen: NAD. Chest: Right sided pain on palpation: Abd: Soft, nontender to palpation, Extremities: Normal ROM, Neuro: A x o x 3, normal gait, no focal deficits appreciated. Psych:Behavior calm, pleasant. MDM: Pain decreased in the ED. No abdominal pain, abdomen is benign. Patient is advised to follow up with pcp for reevaluation. patient otherwise given strict return precautions. Patient understood and agrees with the plan of care. Diagnosis: Rib contusion. Signatures: Dispatcher [employer] Karsten Cordero MD MD cha Mickail, Joel, PA PA jmm Calderon, Audri, RN RN aa5 Corrections: (The following items were deleted from the chart) 09/15 17:33 17:30 traMADol 50 mg PO once; RASS on ADMIN: Combtv4, Very Agttd3, Agttd2, Rstlss1, nahum AlertClm0, Drwsy-1, Lt Sdtn-2, Mod Sdtn-3, Dp Sdtn-4, UnArsble-5 ordered. nahum 18:44 18:18 09/16/2019 18:18 Discharged to Home. Impression: Rib Contusion. Condition is aa5 Stable. Forms are Medication Reconciliation Form, Thank You Letter, Antibiotic Education, Prescription Opioid Use. Follow up: A Eric; When: 2 - 3 days; Reason: Recheck today's complaints, Continuance of care, Re-evaluation by your physician. nahum
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
[2019-09-16 18:51] VITALS: BP 126/69; TEMP 98.1; O2SAT 98
== END 2019-09-16 18:44 | disposition home or self-care (01) ==
LOC: ER 16:36
DX: S20.211A Contusion of right front wall of thorax, initial encounter (principal); W19.XXXA Unspecified fall, initial encounter; Y93.9 Activity, unspecified; Y92.9 Unspecified place or not applicable; I10 Essential (primary) hypertension; Z94.4 Liver transplant status; Z88.5 Allergy status to narcotic agent
CPT/HCPCS: 71045; 99283

== ENCOUNTER 2021-09-11 03:37 | Emergency (ER) | payer OTHER ==
--- OUTSIDE RECORDS SUMMARY | 2021-09-11 03:42 | XMS REPORT | Continuity of Care Document ---
:1960 Author Organization [facility] t Address [address] [place] [address] Dr. Anderson. [address] [place] [address] Care Team Providers Name Role Phone Rico MILLAN Primary Care Physician Unavailable SHADE Attending Clinician Unavailable Ping PENALOZA Attending Clinician Unavailable Manpreet Phillips PA-C Attending Clinician Therapy, Covid Infusion Attending Clinician Unavailable Lamont CORONA, H Attending Clinician Christy MIGUEL Attending Clinician Unavailable Manny MALDONADO Attending Clinician Unavailable Chris Vazquez MD Attending Clinician Daniel Attending Clinician Unavailable Devora PENALOZA Attending Clinician Unavailable Maritza HUIZAR Attending Clinician Unavailable Neil Pickering Attending Clinician Unavailable Pepper MALDONADO Attending Clinician Unavailable Sage Banerjee MD Attending Clinician Micha HUIZAR Attending Clinician Unavailable Kermit Steele Attending Clinician Sid Almaguer MD Attending Clinician [phone] Can Attending Clinician Unavailable Therapy, Covid Infusion Attending Clinician Unavailable Doretha CORONA, M Attending Clinician Doctor Unassigned, Name Attending Clinician Unavailable Payers Payer Name Policy Type Policy Number Effective Date Expiration Date Nakul swartz [employer] MEDICARE OUT [id number] 2019 OF NETWORK 00:00:00 Problems Condition Condition Condition Status Onset Resolution Last Treating Co mments Source Name Details Category Date Date Treatment Clinician Date 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 Met [facility]odi mass mass 00:00: Hospita 00 l Cancer of Cancer of Disease Active 2019-06 [facility] liver, liver, primary primary 00:00: Hospita 00 l Primary Primary Disease Recurre Method i osteoarthr osteoarthr nce 02-26 itis of itis of 00:00: Hospita left knee left knee 00 l DDD DDD Disease Active Methodi (degenerat (degenerat 12-07 agustín disc agustín disc 00:00: Hospit a disease), disease), 00 l lumbar lumbar Steroid-in Steroid-in Disease Active M ethodi duced duced 06-28 hyperglyce hyperglyce 00:00: Ho spita gama gama 00 l Abnormal Abnormal Disease Active Metho di TSH TSH 06-28 00:00: Hospita 00 l Essential Essential Disease Active Met hodi hypertensi hypertensi 06-28 on on 00:00: Hospita 00 l Obesity, Obesity, Disease Active Metho di Class II, Class II, 06-28 BMI BMI 00:00: Hospita 35-39.9 35-39.9 00 l Stage 3 Stage 3 Disease Active Methodi chronic chronic 06-28 kidney kidney 00:00: Hospita disease disease 00 l Jaundice Jaundice Disease Active Metho di 06-25 00:00: Hospita 00 l Cellulitis Cellulitis Disease Active M ethodi and and 03-19 abscess of abscess of 00:00: Ho spiuzma lower lower 00 l extremity extremity [id number] Disease Active Methodi 03-19 00:00: Hospita 00 l Awaiting Awaiting Disease Active Metho di liver liver 09-16 transplant transplant 00:00: Ho spita 00 l 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 02-26 00:00: Hospita 00 l Hepatic Hepatic Disease Active Methodi encephalop encephalop 02-26 athy athy 00:00: Hospita 00 l Portal Portal Disease Active Methodi hypertensi hypertensi 02-26 on on 00:00: Hospita 00 l 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 00:00: Hospita without without 00 l bleeding bleeding Decompensa Decompensa Disease Active M ethodi tion of tion of 02-26 st cirrhosis cirrhosis 00:00: [facility] of liver of liver 00 l Liver Liver Disease Active Methodi transplant transplant st ed ed Hospita l manager long term care [facility]PC Disease Active Met 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 current st use of use of Hospita immunosupp immunosupp l ressive ressive drug drug 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 Hospita l Allergies, Adverse Reactions, Alerts Allergy Allergy Status Severity Reaction(s) Onset Inactive Treating Comm ents Source Name Type Date Date Clinician Shellfis Propensi Active Method i h ty to 06-25 st Derived adverse 00:00: Hospita reaction 00 l s to drug SHELLFIS DRUG Active Unknown-Cmnt Un efrain H INGREDI 06-25 ity of DERIVED 00:00: [place] 00 [facility] Branch Shellfis Propensi Active Unknown - Uni vers h ty to See comments 06-25 ity of Derived adverse 00:00: [place] reaction 00 Medical s Branch Codeine Propensi Active Nausea Only 2015-06 Me thodi ty to 06-23 st adverse 00:00: Hospita reaction 00 l s to drug CODEINE DRUG Active NAUSEA ONLY Univ ers INGREDI 4-20 ity of 00:00: [place] 00 Medical Branch Codeine Drug Active Nausea Univers Intolera and/or 4-20 ity of nce Vomiting 00:00: [place] 00 [facility] NO KNOWN Drug Active Univers ALLERGIE Class ity of S [facility] Social History Social Habit Start Date Stop Date Quantity Comments Source History SDOH [facility] Alcohol Frequency Hospita l History SDOH [facility] Alcohol Std Hospital Drinks History SDOH [facility] Alcohol Binge Hospital Alcohol intake 2020-09-16 2020-09-16 Current [facility] 00:00:00 00:00:00 non-drinker of Hospital alcohol (finding) Alcohol Comment 2018-08-23 2018-08-23 previously [facility] 00:00:00 00:00:00 alcoholic, quit Hospital drinking 03/2008 Tobacco use and 2016-06-30 2016-06-30 Smokeless tobacco Me thodist exposure 00:00:00 00:00:00 non-user Hospital Sex Assigned At [birth year] [facility] 00:00:00 00:00:00 Hospital Smoking Status Start Date Stop Date Source Unknown if ever smoked [facility] Never smoked tobacco [facility] Medications Ordered Filled Start Stop Current Ordering Indication Dosage Frequency Signature Comments Components Source Medication Medication Date Date Medication? Clinician (SIG) Name Name cary 2020-06 Yes TAKE ONE Me thodi oL 2-[address] (ROBAXIN) 00:00: MOUTH FOUR Ho spita 500 MG 00 TIMES A l tablet DAY acetaminoph 2020-06- [place] [id number] chronic M ethodi en-codeine 08-[address] (TYLENOL 00:00: 05:59 ONE TABLET Ho spita WITH 00 :00 BY MOUTH l CODEINE #3) THREE 300-30 mg TIMES A per tablet DAY FOR 10 DAYS casirivimab 2020-06- No [id number] 1200mg 1,200 mg, Univers 600 08-08 IV ity of mg-imdevima 20:00: 15:00 Infusion, [place] b 600 mg 00 :00 ONCE, Medical (REGEN-COV Administer Bra [facility] (EUA)) 1200 over 20 mg in 60 mL Minutes, NS MINI-BAG On Sat (CO-FORMULA 06/07/21 TION) at 1400, For 1 dose<br&gt ;Add 1 vial of casirivima b 600 mg/imdevim ab 600 mg to 50 mL of NS to administer . Admi nister as an IV infusion via pump or gravity through an intravenou s line containing a sterile, in-line or add-on 0.2-micron polyethers ulfone (PES) filter.&nb sp;Stable 36 hours refrigerat ed; 4 hours at room temperatur e. &nbs p;
tacrolimus 2023- No [id number] 2mg Q.5D Take 2 Methodi (PROGRAF) 1 03-[address] MG capsule 00:00: 04:59 (2 mg Hospi ta 00 :00 total) by l mouth 2 (two) times a day. tacrolimus 2020- No [id number] 2mg Q.5D Take 2 Methodi (PROGRAF) 1 03-[address] MG capsule 00:00: 00:00 (2 mg Hospi ta 00 :00 total) by l mouth 2 (two) times a day. mycophenola 2021- No [id number] 500mg Q.5D Take 1 Methodi te 02-[address] (CELLCEPT) 00:00: 04:59 (500 mg Hos jose francisco 500 mg 00 :00 total) by l tablet mouth 2 (two) times a day. acetaminoph 2020- No Tylenol-Co Methodi en-codeine 12-03 deine #3 st (TYLENOL 13:04: 00:00 300 mg-30 Hos jose francisco WITH 50 :00 mg tablet l CODEINE #3) Take 1 300-30 mg tablet 3 per tablet times a day by oral route for 10 days. acetaminoph 2020- [place] [id number] chronic M ethodi en-codeine 12-[address] (TYLENOL 00:00: 00:00 Tylenol-Co Ho spita WITH 00 :00 deine #3 l CODEINE #3) 300 mg-30 300-30 mg mg tablet per tablet Take 1 tablet 3 times a day by oral route for 10 days. magnesium 2021- No 400mg Q.5D Take 1 Meth sebas oxide 11-[address] (MAG-OX) 00:00: 04:59 (400 mg Hospi ta 400 mg 00 :00 total) by l (241.3 mg mouth 2 magnesium) (two) tablet times a day. gabapentin 2021- No 300mg Q.[id number] Take 1 Methodi (NEURONTIN) -09-[id number] 300 mg 00:00: 04:59 3D (300 mg Hospita capsule 00 :00 total) by l mouth 3 (three) times a day. gabapentin 2020- No 300mg Q.[id number] Take 1 Methodi (NEURONTIN) -09-[id number] 300 mg 00:00: 00:00 3D (300 mg Hospita capsule 00 :00 total) by l mouth 3 (three) times a day. tacrolimus 2021- No [id number] .5mg Q.5D Take 1 Methodi (PROGRAF) - 03-[address] 0.5 MG 00:00: 05:59 (0.5 mg Hospita capsule 00 :00 total) by l mouth 2 (two) times a day. rosuvastati 2021- No [id number] 20mg QD Take 1 Methodi n (CRESTOR) 08-22 03-05 tablet (20 s t 20 mg 00:00: 05:59 mg total) Hospit a tablet 00 :00 by mouth l every evening. methocarbam 2020- No 500mg Q.25D Take 1 M ethodi oL 08-22 12-[address] (Robaxin) 00:00: 00:00 (500 mg [facility] 500 MG 00 :00 total) by l tablet mouth 4 (four) times a day for 30 days. mycophenola 2020- No [id number] 500mg Q.5D Take 1 Methodi te 08-22 08-[address] (CELLCEPT) 00:00: 00:00 (500 mg Hos jose francisco 500 mg 00 :00 total) by l tablet mouth 2 (two) times [place] day. [place] 2020- [place] [id number] 1{tbl} Q4H Take 1-2 Methodi en-codeine 08-22 03-[address] (TYLENOL 00:00: 04:59 mouth Hospita WITH 00 :00 every 4 l CODEINE #3) (four) 300-30 mg hours as per tablet needed for moderate pain for up to 20 days .acute pain, chronic pain. ergocalcife 2021- No [id number] Q7D Take 1 M ethodi rol 2 02-[address] (VITAMIN 00:00: 05:59 (50,000 Hospi ta D2) 50,000 00 :00 Units l unit total) by capsule mouth once a week. bamlanivima 2020- No 700mg Univ ers b (EUA) 700 2-13 02-13 ity of mg in NaCl 15:15: 16:20 [place] 0.9% (NS) 00 :00 Medical 270 mL Branch infusion bamlanivima 2020- No 700mg 700 mg, IV Univers b (EUA) 700 08-03 Infusion, it y of mg in NaCl 15:15: 16:20 ONCE, [place] 0.9% (NS) 00 :00 08/03/20 at [facility] jose eduardo 270 mL 0915, For Branch infusion 1 dose
Ad prism measurer as an IV infusion over 60 minutes through a PVC infusion set containing a 0.2 or 0.22 micron in-line polyethers ulfone filter.&nb sp; S low or stop infusion and treat as appropriat e if an infusion-r elated reaction occurs. Dilu rodrigo infusion solution should be administer ed immediatel y. If immediate administra tion is not possible, store diluted bamlanivim ab infusion solution for up to 24 hours refrigerat ed at 2?C to 8?C (36?F to 46?F) or up to 7 hours at 20?C to 25?C (68?F to 77?F) including infusion time.
bamlanivima 2020- No 700mg Univ ers b (EUA) 700 08-03 ity of mg in NaCl 15:15: 16:20 [place] 0.9% (NS) 00 :00 Medical 270 mL Branch infusion bamlanivima 2020- No 700mg 700 mg, IV Univers b (EUA) 700 08-03 Infusion, it y of mg in NaCl 15:15: 16:20 ONCE, Sat [place] 0.9% (NS) 00 :00 08/03/20 at [facility] jose eduardo 270 mL 0915, For Branch infusion 1 dose
Ad prism measurer as an IV infusion over 60 minutes through a PVC infusion set containing a 0.2 or 0.22 micron in-line polyethers ulfone filter.&nb sp; S low or stop infusion and treat as appropriat e if an infusion-r elated reaction occurs. Dilu rodrigo infusion solution should be administer ed immediatel y. If immediate administra tion is not possible, store diluted bamlanivim ab infusion solution for up to 24 hours refrigerat ed at 2?C to 8?C (36?F to 46?F) or up to 7 hours at 20?C to 25?C (68?F to 77?F) including infusion time.
losartan Yes 50mg QD Take 50 mg Met hodi (COZAAR) 50 1-[address] MG tablet 14:14: daily. Hospit a 41 l amLODIPine Yes 5mg QD Take 5 mg Me thodi (NORVASC) 5 1-[address] mg tablet 14:14: daily. Hospit a 41 l apremilast Yes 30mg Q.5D Take 30 mg M ethodi (Otezla) 30 1-[address] mg tablet 14:14: (two) Hospita 41 times a l day. traMADoL 2019-06 Yes [id number] 50mg Q4H Take 1 Method i (ULTRAM) 50 0-27 tablet (50 st mg tablet 00:00: mg total) Hos jose francisco 00 by mouth l every 4 (four) hours as needed for moderate pain for up to 30 days .chronic pain. tacrolimus 2019-06 No 1mg Q.5D Take 1 Meth sebas (PROGRAF) 1 0-15 09-28 capsule (1 s t MG capsule 00:00: 00:00 mg total) H ospita 00 :00 by mouth 2 l (two) times a day. tacrolimus 2019-06 No .5mg Q.5D Take 1 Meth sebas (PROGRAF) 0-15 03-[address] 0.5 MG 00:00: 00:00 (0.5 mg Hospita capsule 00 :00 total) by l mouth 2 (two) times a day. magnesium 2020- No 400mg Q.5D Take 1 Meth sebas oxide 5-15 06-[address] (MAG-OX) 00:00: 00:00 (400 mg Hospi ta 400 mg 00 :00 total) by l (241.3 mg mouth 2 magnesium) (two) tablet times a day. methocarbam Yes 750mg Q8H Take 1 Met hodi oL 4-[address] (Robaxin-75 00:00: (750 mg Hos jose francisco 0) 750 MG 00 total) by l tablet mouth every 8 (eight) hours. rosuvastati No 20mg QD Take 1 Met hodi n (CRESTOR) 2-25 02-26 tablet (20 s t 20 MG 00:00: 05:59 mg total) Hospit a tablet 00 :00 by mouth l every evening. ergocalcife 2020- No [id number] Q7D Take 1 M ethodi rol 08-[address] (VITAMIN 00:00: 00:00 (50,000 Hospi ta D2) 50,000 00 :00 Units l unit total) by capsule mouth once a week. aspirin Yes 81mg QD Take 1 Methodi (ECOTRIN) 1-21 tablet (81 st 81 MG 00:00: mg total) Hospita enteric 00 by mouth l coated every tablet morning. multivitami Yes 1{tbl} QD Take 1 Me thodi n with 1-[address] minerals 00:00: mouth Hospita tablet 00 daily. l Immunizations Ordered Immunization Filled Immunization Date Status Commen ts Source Name Name FLUCELVAX QUAD PF 2018-03-[address] 00:00:00 Hospital Pneumococcal 2018-03-26 Completed [facility] Polysaccharide 00:00:00 Hospital Vital Signs Vital Name Observation Time Observation Value Comments Source Systolic blood 2021-06-07 167 mm[Hg] University of pressure 15:49:00 [facility] Diastolic blood 2021-06-07 83 mm[Hg] University o f pressure 15:49:00 [facility] Heart rate 2021-06-07 82 /min University 15:49:00 [facility] Body temperature 2021-06-07 37.17 Michelle [facility] 15:49:00 [facility] Respiratory rate 2021-06-07 18 /min University 15:49:00 [facility] Oxygen saturation 2021-06-07 96 /min [facility] in Arterial blood 15:49:00 [facility] by Pulse oximetry [place] Body height 2021-06-07 165.1 cm University 14:27:00 [facility] Body weight 2021-06-07 97.523 kg University 14:27:00 [facility] BMI 2021-06-07 35.78 kg/m2 University of 14:27:00 [facility] Systolic blood 2020-08-03 179 mm[Hg] University of pressure 17:15:00 [facility] Diastolic blood 2020-08-03 84 mm[Hg] University o f pressure 17:15:00 [facility] Heart rate 2020-08-03 104 /min [facility] 17:15:00 [facility] Body temperature 2020-08-03 37 Michelle [facility] 17:15:00 [facility] Respiratory rate 2020-08-03 18 /min [facility] 17:15:00 [facility] Oxygen saturation 2020-08-03 97 /min [facility] in Arterial blood 17:15:00 [facility] by Pulse oximetry [place] Body height 2020-08-03 172.7 cm [facility] 14:10:00 [facility] Body weight 2020-08-03 113.399 kg [facility] 14:10:00 [facility] BMI 2020-08-03 38.01 kg/m2 [facility] 14:10:00 [facility] Systolic blood 2021-04-03 161 mm[Hg] taken his bp [facility] pressure 20:10:00 medication this [facility] morning Diastolic blood 2021-04-03 77 mm[Hg] taken his bp [facility] pressure 20:10:00 medication [facility] morning Heart rate 2021-04-03 73 /min [facility] 20:10:00 Hospital Body temperature 2021-04-03 36.22 Michelle [facility] 20:10:00 Hospital Respiratory rate 2021-04-03 16 /min [facility] 20:10:00 Hospital Body weight 2021-04-03 111.494 kg [facility] 20:10:00 Hospital BMI 2021-04-03 37.37 kg/m2 [facility] 20:10:00 Hospital Oxygen saturation 2021-04-03 97 /min [facility] in Arterial blood 20:10:00 Hospital by Pulse oximetry Body height 2020-08-22 172.7 cm [facility] 18:42:00 Hospital Procedures Procedure Date / Time Performing Clinician Source Performed MAGNESIUM LEVEL 2021-04-01 13:21:00 [facility] COMPREHENSIVE METABOLIC 2021-04-01 13:21:00 [facility] PANEL PROTHROMBIN TIME WITH 2021-04-01 13:21:00 [facility] INR CBC WITH PLATELET AND 2021-04-01 13:21:00 [facility] DIFFERENTIAL [id number] TACROLIMUS LEVEL, 2021-04-01 13:21:00 [facility] RANDOM MAGNESIUM LEVEL 2021-02-03 12:47:00 [facility] 2021-02-03 12:47:00 Taylor, [facility] PANEL PHOSPHATIDYLETHANOL, 2021-02-03 12:47:00 [facility] BLOOD PROTHROMBIN TIME WITH 2021-02-03 12:47:00 Taylor, Luis Miguel Perez [facility] INR CBC WITH PLATELET AND 2021-02-03 12:47:00 Taylor [facility] DIFFERENTIAL [id number] TACROLIMUS LEVEL, 2021-02-03 12:47:00 Taylor, [facility] RANDOM MAGNESIUM LEVEL 2020-12-25 12:41:00 Taylor, [facility] 2020-12-25 12:41:00 Taylor, [facility] PANEL PHOSPHATIDYLETHANOL, 2020-12-25 12:41:00 [facility] Luis Miguel [facility] BLOOD PROTHROMBIN TIME WITH 2020-12-25 12:41:00 Taylor, [facility] [facility] INR CBC WITH PLATELET AND 2020-12-25 12:41:00 Taylor [facility] DIFFERENTIAL [id number] TACROLIMUS LEVEL, 2020-12-25 12:41:00 Taylor [facility] RANDOM MAGNESIUM LEVEL 2020-10-31 12:39:00 Taylor, Luis Miguel Perez [facility] 2020-10-31 12:39:00 Taylor [facility] PANEL PHOSPHATIDYLETHANOL, 2020-10-31 12:39:00 [facility] Luis Miguel [facility] BLOOD PROTHROMBIN TIME WITH 2020-10-31 12:39:00 Taylor [facility] INR CBC WITH PLATELET AND 2020-10-31 12:39:00 Taylor [facility] DIFFERENTIAL [id number] TACROLIMUS LEVEL, 2020-10-31 12:39:00 Taylor [facility] RANDOM MAGNESIUM LEVEL 2020-09-30 13:40:00 [facility] COMPREHENSIVE METABOLIC 2020-09-30 13:40:00 [facility] PANEL PHOSPHATIDYLETHANOL, 2020-09-30 13:40:00 [facility] BLOOD PROTHROMBIN TIME WITH 2020-09-30 13:40:00 [facility] INR CBC WITH PLATELET AND 2020-09-30 13:40:00 [facility] DIFFERENTIAL [id number] TACROLIMUS LEVEL, 2020-09-30 13:40:00 [facility] RANDOM MRI PELVIS WO CONTRAST 2020-09-06 17:10:00 [facility] MRI LUMBAR SPINE WO 2020-09-06 16:23:00 [facility]- 2020-08-01 06:01:00 Doctor Unassigned, No Univer [facility] REQUEST/RESPONSE Name Medical Branch Plan of Care Planned Activity Planned Date Details Comments Source Future Scheduled 2021-07-22 COVID-19 VACCINE (1) [facility] Test 06:14:35 [code = COVID-19 VACCINE (1)] Future Scheduled 2021-07-22 COLONOSCOPY SCREENING [facility] Test 06:14:35 [code = COLONOSCOPY SCREENING] Future Scheduled 2021-07-22 SHINGLES VACCINES Method [facility] Test 06:14:35 (#1) [code = SHINGLES VACCINES (#1)] Future Scheduled 2021-07-22 INFLUENZA VACCINE Method [facility] Test 06:14:35 [code = INFLUENZA VACCINE] Encounters Start End Encounter Admission Attending Care Care Encounter Source Date/Time Date/Time Type Type Clinicians Facility Department ID 2021-08-21 2021-08-21 Outpatient SHADE [facility] [id number] [place] 00:00:00 00:00:00 REYNALDO [address] 2021-08-21 2021-08-21 [facility] [id number] [place] 00:00:00 00:00:00 REYNALDO [address] 2021-08-21 2021-08-21 Outpatient SHADE [facility] [id number] [place] 00:00:00 00:00:00 REYNALDO [address] 2021-08-21 2021-08-21 Outpatient SHADE [facility] [id number] [place] 00:00:00 00:00:00 REYNALDO [address] 2021-07-22 2021-07-22 Orders Ping, 1.2.840.1 [id number] Methodi 00:00:00 00:00:00 [address]eth [address]1.[address] 3.430.2.7 Hospit a .3.212391 l .8 2021-06-23 2021-06-23 Orders Ping, 1.2.840.1 [id number] Methodi 00:00:00 00:00:00 Only Loideth [address]33.1.[address] 3.430.2.7 Hospit a .3.454002 l .8 2021-06-12 2021-06-12 Refsampson Phillips, 1.2.840.1 [id number] Methodi 00:00:00 00:00:00 Jamarcus Case [address]111.1.[address] 3.430.2.7 Hospit a .3.242146 l .8 2021-06-10 2021-06-10 Cha Phillips, 1.2.840.1 [id number] Methodi 00:00:00 00:00:00 Jamarcus Case 89826.1.[address] 3.430.2.7 Hospit a .3.473976 l .8 2021-06-07 2021-06-07 Nurse Therapy, Clc Covid Infusion [facility] 1.2.840.114 [id number] Univers 08:30:00 09:30:00 [address] Miguel [facility] 350.1.13.10 ity of CLEAR 4.2.7.2.686 [facility] [id number] [place] [address] Branch OFFICE BUILDING 2021-06-07 2021-06-[address] [facility] [id number] Univers 08:30:00 08:30:[id number] [facility] 2021-06-07 2021-06-07 Outpatient R LAMONT, [facility] [id number] Univers 08:30:00 08:30:[address] [facility] 2021-05-26 2021-05-26 Orders Ping, 1.2.840.1 [id number] Methodi 00:00:00 00:00:00 Only Roland 97906.1.[address] 3.430.2.7 Hospit a .3.936423 l .8 2021-05-12 2021-05-12 Cha Romanerika, 1.2.840.1 [id number] Methodi 00:00:00 00:00:00 Jamarcus Case [address]2958.1.[address] 3.430.2.7 Hospit a .3.673841 l .8 2021-04-24 2021-04-24 [place] Manny, 1.2.840.1 [id number] Methodi 00:00:00 00:00:[address] 3.430.2.7 Hospit a .3.165971 l .8 2021-04-03 2021-04-03 [facility] 1.2.840.1 [id number] Methodi 16:15:35 16:30:35 Work Kerline 50179.1.[address] 3.430.2.7 Hospit a .3.249790 l .8 2021-04-03 2021-04-03 Office RigoYusuf, 1.2.840.1 [id number] Methodi 14:51:46 15:06:46 Visit Reynaldo 30480.1.[address] 3.430.2.7 Hospit a .3.299881 l .8 2021-04-03 2021-04-03 Travel 1.2.840.1 [id number] [id number] Methodi 00:00:00 00:00:[address] 3.430.2.7 0.2.7.3.698 Ho spita .3.057809 084.8 l .8 2021-04-01 2021-04-01 Orders Taylor, 1.2.840.4 [id number] Methodi 00:00:00 00:00:00 Only Luis Miguel Perez 69110.1.1 609 s t 3.430.2.7 Hospit a .3.939125 l .8 2021-03-18 2021-03-18 Refill Ping, 1.2.840.1 [id number] Methodi 00:00:00 00:00:[address] 3.430.2.7 Hospit a .3.211403 l .8 2021-03-18 2021-03-18 Refill Ping, 1.2.840.1 [id number] 0205 Methodi 00:00:00 00:00:[address] 3.430.2.7 Hospit a .3.379881 l .8 2021-02-20 2021-02-20 Telephone Daniel, 1.2.840.1 [id number] Methodi 00:00:00 00:00:[address] 3.430.2.7 Hospit a .3.274408 l .8 2021-02-18 2021-02-18 Refill Ping, 1.2.840.1 [id number] Methodi 00:00:00 00:00:[address] 3.430.2.7 Hospit a .3.710551 l .8 2021-02-05 2021-02-05 Telephone Devora, 1.2.840.1 [id number] Methodi 00:00:00 00:00:[address] 3.430.2.7 Hospit a .3.691809 l .8 2021-02-03 2021-02-03 Orders Taylor, 1.2.840.0 [id number] Methodi 00:00:00 00:00:00 Only Rafik Chris 13306.1.1 724 s t 3.430.2.7 Hospit a .3.127470 l .8 2020-12-28 2020-12-28 Transplant Shade, 1.2.840.1 [id number] Methodi 07:01:04 07:16:04 Telemedici Reynaldo 89639.1.1 [address] t ne 3.430.2.7 Hospit a .3.872059 l .8 2020-12-26 2020-12-26 Telephone Maritza, 1.2.840.1 [id number] 099 [id number] Methodi 00:00:00 00:00:[address] 3.430.2.7 Hospit a .3.531030 l .8 2020-12-25 2020-12-25 Orders Taylor, 1.2.840.4 [id number] 836 [id number] Methodi 00:00:00 00:00:00 Only Luis Miguel Chris 52839.1.1 053 s t 3.430.2.7 Hospit a .3.256426 l .8 2020-12-03 2020-12-03 Telemedici Jacqueline, 1.2.840.1 [id number] 21 [id number] Methodi 11:39:49 11:59:49 ne Jamarcus Case 40188.1.[address] 3.430.2.7 Hospit a .3.476434 l .8 2020-11-28 2020-11-28 Refill Taylor, 1.2.840.1 [id number] 2099 [id number] Methodi 00:00:00 00:00:00 Rafik Chris 32040.1.1 530 s t 3.430.2.7 Hospit a .3.824753 l .8 2020-11-27 2020-11-27 Refill Taylor, 1.2.840.1 [id number] 2099 [id number] Methodi 00:00:00 00:00:00 Rafik Chris 94138.1.1 121 s t 3.430.2.7 Hospit a .3.218002 l .8 2020-11-27 2020-11-27 Refill Jessieerika, 1.2.840.1 [id number] 40553 Methodi 00:00:00 00:00:00 Jamarcus Case 33909.1.[address] 3.430.2.7 Hospit a .3.498066 l .8 2020-11-01 2020-11-01 Telephone Raheel, 1.2.840.1 [id number] Methodi 00:00:00 00:00:[address] 3.430.2.7 Hospit a .3.823737 l .8 2020-10-31 2020-10-31 Orders Taylor, 1.2.840.1 [id number] 2099 [id number] Methodi 00:00:00 00:00:00 Only Luis Miguel Perez 77771.1.1 249 s t 3.430.2.7 Hospit a .3.603855 l .8 2020-10-09 2020-10-09 Documentat Pepper, 1.2.840.1 [id number] Methodi 00:00:00 00:00:00 ion Jocelyn 37824.1.[address] 3.430.2.7 Hospit a .3.504435 l .8 2020-10-04 2020-10-04 Telephone Ping, 1.2.840.1 [id number] 2100 [id number] Methodi 00:00:00 00:00:[address] 3.430.2.7 Hospit a .3.911004 l .8 2020-10-02 2020-10-02 Procedure Lavonne, 1.2.840.1 [id number] 683 [id number] Methodi 11:38:54 15:23:37 visit Shant 63631.1.[address] Sage 3.430.2.7 Hospit a .3.655745 l .8 2020-10-02 2020-10-02 Travel 1.2.840.1 1.2.883.806 2356 [id number] Methodi 00:00:00 00:00:[address] 3.430.2.7 0.2.7.3.698 Ho spita .3.398273 084.8 l .8 2020-09-30 2020-09-30 Orders Taylor, 1.2.840.1 [id number] 2100 [id number] Methodi 00:00:00 00:00:00 Only Luis Miguel Perez 75384.1.1 483 s t 3.430.2.7 Hospit a .3.958793 l .8 2020-09-24 2020-09-24 Travel 1.2.840.1 1.2.178.044 3463 [id number] Methodi 00:00:00 00:00:[address] 3.430.2.7 0.2.7.3.698 Ho spita .3.280193 084.8 l .8 2020-09-16 2020-09-16 Office Lavonne, 1.2.840.1 [id number] 70482 Methodi 09:38:18 11:07:39 Visit Shant 96225.1.[address] Sage 3.430.2.7 Hospit a .3.564324 l .8 2020-09-16 2020-09-16 Travel 1.2.840.1 1.2.695.460 9424 094108 Methodi 00:00:00 00:00:[address] 3.430.2.7 0.2.7.3.698 Ho spita .3.895257 084.8 l .8 2020-09-11 2020-09-11 Orders Muse, 1.2.840.1 [id number] 65399 Methodi 00:00:00 00:00:00 Only Cleo 52321.1.[address] 3.430.2.7 Hospit a .3.271003 l .8 2020-09-11 2020-09-11 Orders Jessieerika, 1.2.840.1 [id number] 12305 Methodi 00:00:00 00:00:00 Only Jamarcus Case 85848.1.[address] 3.430.2.7 Hospit a .3.165096 l .8 2020-09-10 2020-09-10 Office Jessieerika, 1.2.840.1 [id number] 21431 78757 Methodi 09:55:35 10:20:46 Visit Jamarcus Case 53255.1.[address] 3.430.2.7 Hospit a .3.884282 l .8 2020-09-10 2020-09-10 Orders Jacqueline, 1.2.840.1 [id number] 14420 34780 Methodi 00:00:00 00:00:00 Only Jamarcus Case 96679.1.[address] 3.430.2.7 Hospit a .3.735210 l .8 2020-09-10 2020-09-10 Travel 1.2.840.1 1.2.319.446 2391 608723 Methodi 00:00:00 00:00:[address] 3.430.2.7 0.2.7.3.698 Ho spita .3.815070 084.8 l .8 2020-09-06 2020-09-06 [facility] Cedric, 1.2.840.1 [id number] 21 [id number] Methodi 10:23:29 23:59:00 Encounter Rene 31064.1.[address] Kermit 3.430.2.7 Hospit a .3.503177 l .8 2020-09-06 2020-09-06 [facility] Richy Almaguer 1.2.840 .1 [id number] Methodi 10:23:18 23:59:00 Encounter Rene Steele 01686.1.[address] 3.430.2.7 Hospit a .3.360125 l .8 2020-09-05 2020-09-05 Travel 1.2.840.1 1.2.662.885 3991 360624 Methodi 00:00:00 00:00:[address] 3.430.2.7 0.2.7.3.698 Ho spita .3.053689 084.8 l .8 2020-09-03 2020-09-03 Travel 1.2.840.1 1.2.696.397 5120 [id number] Methodi 00:00:00 00:00:[address] 3.430.2.7 0.2.7.3.698 Ho spita .3.872534 084.8 l .8 2020-09-02 2020-09-02 [facility], 1.2.840.1 [id number] Methodi 00:00:00 00:00:[address] 3.430.2.7 Hospit a .3.463082 l .8 2020-08-30 2020-08-30 Travel 1.2.840.1 1.2.469.667 8442 [id number] Methodi 00:00:00 00:00:[address] 3.430.2.7 0.2.7.3.698 Ho spita .3.637482 084.8 l .8 2020-08-28 2020-08-28 Orders Muse, 1.2.840.1 [id number] 16504 48683 Methodi 00:00:00 00:00:00 Only Cleo 59715.1.[address] 3.430.2.7 Hospit a .3.408207 l .8 2020-08-28 2020-08-28 Orders Muse, 1.2.840.1 [id number] 17352 Methodi 00:00:00 00:00:00 Only Cleo 63374.1.[address] 3.430.2.7 Hospit a .3.785894 l .8 2020-08-22 2020-08-22 Office Luis Miguel Vazquez 1.2.840.1 104 413255 [id number] Methodi 12:30:13 12:45:13 Visit RigoSelvinYusuf Reynaldo 63103.1.[address] 3.430.2.7 Hospit a .3.884067 l .8 2020-08-22 2020-08-22 Office Jacqueline, 1.2.840.1 [id number] 24223 27882 Methodi 10:47:44 11:02:44 Visit Jamarcus Valles50.1.[address] 3.430.2.7 Hospit a .3.425252 l .8 2020-08-22 2020-08-22 Travel 1.2.840.1 1.2.570.007 8792 203102 Methodi 00:00:00 00:00:[address] 3.430.2.7 0.2.7.3.698 Ho spita .3.610127 084.8 l .8 2020-08-13 2020-08-13 Refill Ping, 1.2.840.1 [id number] 963309 6535 Methodi 00:00:00 00:00:[address] 3.430.2.7 Hospit a .3.564717 l .8 2020-08-12 2020-08-12 Travel 1.2.840.1 1.2.071.516 4936 099799 Methodi 00:00:00 00:00:[address] 3.430.2.7 0.2.7.3.698 Ho spita .3.319662 084.8 l .8 2020-08-09 2020-08-09 Refill Jacqueline, 1.2.840.1 [id number] 99867 12447 Methodi 00:00:00 00:00:00 Jamarcus Case 42172.1.[address] 3.430.2.7 Hospit a .3.845599 l .8 2020-08-08 2020-08-08 Refill Taylor, 1.2.840.1 [id number] 2100 736994 Methodi 00:00:00 00:00:00 Luis Miguel Perez 07741.1.1 712 s t 3.430.2.7 Hospit a .3.869167 l .8 2020-08-05 2020-08-[address] [facility] [id number] -[id number] Univers 13:00:00 13:00:00 198818 ity of [facility] 2020-08-03 2020-08-03 Nurse Therapy, Adc Covid Infusion [facility] 1.2.840.114 [id number] Univers 07:56:47 08:26:47 [facility] [place] [facility] [place].0090[place]60[place] 2020-08-03 2020-08-[address] [facility] [id number] Univers 08:00:00 08:00:00 ity of [facility] 2020-08-01 2020-08-01 Orders Ping, 1.2.840.1 [id number] 9227 Methodi 00:00:00 00:00:00 Only Roland 75669.1.[address] 3.430.2.7 Hospit a .3.236244 l .8 2020-08-01 2020-08-01 Telephone Raheel 1.2.840.1 [id number] 2099 [id number] Methodi 00:00:00 00:00:[address] 3.430.2.7 Hospit a .3.570140 l .8 2020-08-01 2020-08-01 Orders Doctor CALL 1.2.840.114 [id number] Univers 00:00:00 00:00:00 Only Unassigned, SERENA 350.[address].13.[address] [facility] 4.2.7.2.686 Aakash as [phone] [address] 2020-07-29 2020-07-29 Telephone Can 1.2.840.1 [id number] 21 [id number] Methodi 00:00:00 00:00:[address] 3.430.2.7 Hospit a .3.563074 l .8 Results Test Description Test Time Test Comments Results Result Comments Source Comprehensive metabolic panel 2021-04-03 01:17:00 Test Item Value Reference Range Interpretation Comme nts Glucose (test code = 110 mg/dL 65-99 H Fasting 2345-7) reference inter melanie For someone without known diabetes, a glu cose valuebetween 10 0 and 125 mg/dL is consis tent withprediabetes and should be confi rmed with afollow-up test . BUN (test code = 3094-0) 19 mg/dL 7-25 Creatinine (test code = 2.12 mg/dL 0.70-1.33 H For patients >49 years of 2160-0) age, the refere nce limitfor Creati nine is approximately 1 3% higher for peopleident ified as -Leonor n. EGFR Non-Afr. Slovenian See_Comment L [Aut omated message] The (test code = 2775) system [facility] generated this result tra nsmitted reference range : > OR = 60 mL/min/1.73m 2. The reference range was not used to interpr et this result as normal/abnormal . EGFR See_Comment L [Auto mated message] The (test code = 2774) system [facility] generated this result tra nsmitted reference range : > OR = 60 mL/min/1.73m 2. The reference range was not used to interpr et this result as normal/abnormal . BUN/creatinine ratio See_Comment [Autom ated message] The (test code = 3097-3) system which generated this result tra nsmitted reference range : 6 - 22 (calc). The ref erence range was not u sed to interpret this result as normal/abnormal . Sodium (test code = 138 mmol/L 442-383 5666-2) Potassium (test code = 4.9 mmol/L 3.5-5.3 2823-3) Chloride (test code = 106 mmol/L 98-110 5-0) CO2 (test code = 2028-02) 26 mmol/L 20-32 Calcium (test code = 8.8 mg/dL 8.6-10.3 08618-4) Protein (test code = 6.4 g/dL 6.1-8.1 2885-2) Albumin, S (test code = 3.8 g/dL 3.6-5.1 1751-7) Globulin, total (test See_Comment [Auto mated message] The code = 70134-0) system which generated this result tra nsmitted reference range : 1.9 - 3.7 g/dL (calc) . The reference range was not used to interpr et this result as normal/abnormal . Albumin/globulin ratio See_Comment [Aut omated message] The (test code = 1759-0) system which generated this result tra nsmitted reference range : 1.0 - 2.5 (calc). The reference range was not u sed to interpret this result as normal/abnormal . Total bilirubin (test 0.6 mg/dL 0.2-1.2 code = 1975-2) Alkaline phosphatase 134 U/L 35-144 (test code = 6768-6) AST (test code = 1920-8) 31 U/L 10-35 ALT (test code = 1742-6) 31 U/L 9-46 JOSEFA (test code = JOSEFA) FASTING:YES FASTING: YES RAC (test code = RAC) Performing Organization Information: Site ID: [facility] Name: [facility] Address: [address] [place] [phone] Director: Fran Guajardo Lab Interpretation (test Abnormal code = 64845-8) [facility]2021-10-14 01:17:00 Test Item Value Reference Range Interpretation Comments Magnesium (test code 2.1 mg/dL 1.5-2.5 = 72823-9) JOSEFA (test code = JOSEFA) FASTING:YES FASTING: YES RAC (test code = RAC) Performing Organization Information: Site ID: [facility] Name: [facility] Address: [address] [place] [phone] Director: Fran Guajardo [facility] with platelet and [id number] 01:17:00 Test Item Value Reference Range Interpretation Comments WBC (test code = See_Comment [Automated 9190-2) message] The system which generated this result transmitted reference range : 3.8 - 10.8 Thousand/uL. Th e reference range was not used to interpret this result as normal/abnormal . RBC (test code = See_Comment [Automated 789-8) message] The system which generated this result transmitted reference range : 4.20 - 5.80 Million/uL. The reference range was not used to interpret this result as normal/abnormal . HGB (test code = 14.5 g/dL 13.2-17.1 718-7) HCT (test code = 42.3 % 38.5-50.0 4544-3) MCV (test code = 97.0 fL 80.0-100.0 787-2) MCH (test code = 33.3 pg 27.0-33.0 H 785-6) MCHC (test code = 34.3 g/dL 32.0-36.0 786-4) RDW (test code = 12.3 % 11.0-15.0 788-0) Platelet count (test See_Comment [Autom ated code = 777-3) message] The system which generated this result transmitted reference range : 140 - 400 Thousand/uL. Th e reference range was not used to interpret this result as normal/abnormal . MPV (test code = 9.5 fL 7.5-12.5 776-5) Neutrophils, See_Comment [Automated absolute (test code message] The = 751-8) system which generated this result transmitted reference range : 1,500 - 7,800 cells/uL. The reference range was not used to interpret this result as normal/abnormal . Lymphocytes, See_Comment [Automated absolute (test code message] The = 731-0) system which generated this result transmitted reference range : 850 - 3,900 cells/uL. The reference range was not used to interpret this result as normal/abnormal . Monocytes, absolute See_Comment [Automa rodrigo (test code = 742-7) message] The system which generated this result transmitted reference range : 200 - 950 cells/uL. The reference range was not used to interpret this result as normal/abnormal . Eosinophils, See_Comment [Automated absolute (test code message] The = 711-2) system which generated this result transmitted reference range : 15 - 500 cells/uL. The reference range was not used to interpret this result as normal/abnormal . Basophils, absolute See_Comment [Automa rodrigo (test code = 704-7) message] The system which generated this result transmitted reference range : 0 - 200 cells/u L. The reference range was not used to interpr et this result as normal/abnormal . Neutrophils (test 70.8 % code = 770-8) Lymphocytes (test 16.8 % code = 736-9) Monocytes (test code 7.4 % = 5905-5) Eosinophils (test 4.5 % code = 713-8) Basophils + RC (test 0.5 % code = 706-2) JOSEFA (test code = FASTING:YES JOSEFA) FASTING: YES RAC (test code = Performing RAC) Organization Information: Site ID: [facility] Name: [facility] Address: [address] [place] [phone] Director: Fran Guajardo Lab Interpretation Abnormal (test code = 21408-3) [facility] with [id number] 01:17:00 Test Item Value Reference Range Interpretation Comments INR (test code = Reference R marlo 6301-6) 0.9-1.1Moderate -i ntensity Warfar in Therapy 2.0-3.0Higher-i nt ensity Warfarin Therapy 3.0-4 .0 Prothrombin time See_Comment For additio nal (test code = information, 5902-2) please refer [email or web address] io n.ThousandEyes/faq/FAQ10 4( This link is being provided for informational/e du cational purpos es only.) [Automated message] The system which generated this result transmitted reference range : 9.0 - 11.5 sec. The reference range was not used to interpr et this result as normal/abnormal . JOSEFA (test code = FASTING:YES JOSEFA) FASTING: YES RAC (test code = Performing RAC) Organization Information: Site ID: [facility] Name: [facility] Address: [address] [place] [phone] Director: Fran Guajardo [facility]FK506 Tacrolimus level, [id number] 01:17:00 Test Item Value Reference Range Interpretation Comments Tacrolimus, mcg/L No definitive highly therapeutic or toxic sensitive, ranges have LC/MS/MS beenestablished . (test code = Optimal blood d [place] 03659-6) levels are influencedby ty pe of transplant, pat ient response, time post-transplant , co-administrati on of other drugs, an d drug formulation. Th e following troug h range is a suggested guideline: 5.0- 20.0 mcg/L. This macrina t was developed and i ts analytical perf ormance characteristics have been determined by [employer] . It has not been cl eared or approved by theA. This assay has been validated pursu ant to the CLIA regula tions and is used for clinical purpos es. JOSEFA (test FASTING:YES code = JOSEFA) FASTING: YES RAC (test Performing code = RAC) Organization Information: Site ID: [id number] Name: [facility] Address: [address] [place] [address] Director: Dr. Fran Guajardo [facility] HospitalPhosphatidylethanol, [id number] 22:55:00 Test Item Value Reference Interpretation Comments Range Phosphatidylethan 970 ng/mL H Reporting Limit: 20 ng/mL ol, blood (test Synonym(s): Phosphatidyl code = 33513-9) Ethanol; PET H; PethPhosphatidy lethanol (PEth) is an ethanol-derived phospholipi d. In clinical studies, phosphatidyleth anolwas not detected after a single high ethanol in take.PEth was detected af ter sustained drink ing of morethan approx imately 35 to 50g/day for several weeks. Thephosphatidyl ethanol concentration i n blood has beenreported to correlate with the amount of alcohol consumed during the previous 2 week s. Phosphatidyleth anol may be detected for up to 2 to 4 weeks after neelam sation of heavy drinking. Analysis by [employer] Liquid Chromatography/ Tandem Mass Spectromet ry (LC-MS/MS)This test was developed and i ts performance characteristics determined by [facility]. I t has not been cleared or approved by the [place] Food and Drug Administration. JOSEFA (test code = FASTING:YES JOSEFA) FASTING: YES RAC (test code = Performing RAC) Organization Information: Site ID: [id number] Name: [facility] Address: [address] [place] [address] KATHRYN Manjarrez [address] Director: Fran Brar PH.D, F-AB Lab Abnormal Interpretation (test code = 69639-9) [facility]
[2021-09-11] MEDS ORDERED: AZITHROMYCIN 250 MG TAB ONE (04:34)
[2021-09-11] MEDS ORDERED: TOBRAMYCIN SULF 0.3% OPTH OINT ONE (04:34)
[2021-09-11] MEDS ORDERED: CEFTRIAXONE 1000 MG/VIAL ONE (04:34)
[2021-09-11] MEDS ORDERED: IPRATROPIUM BROM 0.5MG/2.5ML ONE (04:35)
[2021-09-11] MEDS ORDERED: LEVALBUTEROL 1.25 MG/3 ML NEB ONE (04:35)
[2021-09-11 04:40] LABS: Absolute Lymphocytes (CBC) 0.9 K/uL (0.7-4.9); Hematocrit 41.4 % (39.6-49.0); Lymphocytes % 8.4 % (15.3-44.8); MPV 7.5 fL (7.6-11.3); RBC Red Blood Cell Count 4.14 M/uL (4.33-5.43)
[2021-09-11 04:43] LABS: Protime INR 1.07
[2021-09-11 04:57] LABS: Albumin 2.4 g/dL (3.4-5.0); Bilirubin Direct 0.2 mg/dL (0-0.2); Bilirubin Total 0.4 mg/dL (0.2-1.0); Magnesium 2.2 mg/dL (1.8-2.4); Protein, Total 7.1 g/dL (6.4-8.2); Troponin High Sensitivity 6.4 pg/mL (<58.9)
--- NOTE | 2021-09-11 05:03 | ER ---
Nurse's Notes [facility] Name: Javier Saravia Age: 60 yrs Sex: Male : 1960 Arrival Date: 09/11/2021 Time: 03:42 Bed 5 Private MD: Diagnosis: Bronchitis, not specified as acute or chronic;Acute upper respiratory infection, unspecified;Unspecified cirrhosis of liver;Liver disease, unspecified-WITH Liver Transplant;Other conjunctivitis-right Presentation: 09/11 03:53 Chief complaint: Patient states: I have real bad congestion and my doctor would like me kd3 to get an x ray to rule out pneumonia. I also have pink eye. Coronavirus screen: Vaccine status: Patient reports being unvaccinated. Ebola Screen: No symptoms or risks identified at this time. Initial Sepsis Screen: Does the patient meet any 2 criteria? No. Patient's initial sepsis screen is negative. Does the patient have a suspected source of infection? No. Patient's initial sepsis screen is negative. Risk Assessment: Do you want to hurt yourself or someone else? Patient reports no desire to harm self or others. Onset of symptoms was September 05, 2021. 03:53 Method Of Arrival: Ambulatory kd3 03:53 Acuity: RD 4 kd3 Triage Assessment: 03:54 General: Appears in no apparent distress. Behavior is calm, cooperative, appropriate kd3 for age. Pain: Denies pain. Respiratory: Breath sounds are diminished bilaterally. Historical: - Home Meds: 03:54 amlodipine 5 mg oral tab 1 tab once daily [Active]; tacrolimus 1 mg oral Tb24 2 tabs kd3 once daily [Active]; CellCept 500 mg Oral tab 1 tabs 2 times per day [Active]; magnesium oxide 400 mg (241.3 mg magnesium) Oral tab daily [Active]; Vitamin D Oral 50,000 unit [Active]; rosuvastatin 20 mg oral cpSP 1 cap once daily [Active]; losartan 50 mg oral tab 1 tab once daily [Active]; Otezla 30 mg oral tab 1 tab 2 times per day [Active]; gabapentin 300 mg oral cap 1 cap in the evening [Active]; - PMHx: 03:54 Cirrhosis; Hypertension; psoriasis; kd3 - Immunization history:: Adult Immunizations up to date, Client reports having NOT received the Covid vaccine. Flu vaccine is up to date. - Social history:: Smoking status: Patient denies any tobacco usage or history of. - Family history:: not pertinent. Screenin:59 Abuse screen: Denies threats or abuse. Denies injuries from another. Nutritional kd3 screening: No deficits noted. Tuberculosis screening: No symptoms or risk factors identified. Fall Risk IV access (20 points). Assessment: 04:58 Reassessment: Patient and/or family updated on plan of care and expected duration. Pain kd3 level reassessed. Patient is alert, oriented x 3, equal unlabored respirations, skin warm/dry/pink. General: Appears in no apparent distress. Behavior is calm, cooperative, appropriate for age. Cardiovascular: Capillary refill < 3 seconds JVD is absent Patient's skin is warm and dry. Respiratory: Airway is patent Trachea midline Respiratory effort is even, unlabored, Respiratory pattern is regular, Sputum is thick, Breath sounds are coarse bilaterally. GI: No signs and/or symptoms were reported involving the gastrointestinal system. : No signs and/or symptoms were reported regarding the genitourinary system. EENT: Eyes are tearing on iris of right eye. Vital Signs: 04:55 BP 101 / 67; Pulse 84; Resp 19; Temp 98.2; Pulse Ox 100% on R/A; Weight 112.49 kg; kd3 Height 5 ft. 8 in. (172.72 cm); Pain 0/10; 05:16 BP 116 / 67; Pulse 94; Resp 16; Pulse Ox 96% on R/A; kd3 04:55 Body Mass Index 37.71 (112.49 kg, 172.72 cm) kd3 ED Course: 03:42 Patient arrived in ED. ja2 03:46 Melita Leal, [place] is Primary Nurse. kd3 03:52 Karsten Calvert MD is Attending Physician. esha 03:54 Triage completed. kd3 03:54 Arm band placed on right wrist. kd3 04:18 XRAY Chest (1 view) In Process Unspecified. EDMS 04:59 Patient has correct armband on for positive identification. Bed in low position. Call kd3 light in reach. Side rails up X 1. site monitor on. Pulse ox on. NIBP on. 05:15 No provider procedures requiring assistance completed. IV discontinued, intact, kd3 bleeding controlled, No redness/swelling at site. Pressure dressing applied. Administered Medications: 03:59 CANCELLED (Physician Discretion): Tobramycin Drops (0.3 %) 1 drops Ophthalmic once; TO lp1 RIGHT EYE 04:53 Drug: Rocephin (cefTRIAXone) 1 grams Route: IV; Rate: per protocol; Site: right kd3 antecubital; 05:07 Follow up: Response: No adverse reaction kd3 05:16 Follow up: IV Status: Completed infusion kd3 04:53 Drug: Zithromax (azithromycin) 500 mg Route: PO; kd3 05:07 Follow up: Response: No adverse reaction kd3 04:53 Drug: Tobramycin Ointment (0.3 %) 1 application Route: Ophthalmic; Site: right eye; kd3 05:07 Follow up: Response: No adverse reaction kd3 04:53 Drug: Xopenex (levalbuterol) 1.25 mg Route: Inhalation; kd3 05:07 Follow up: Response: No adverse reaction kd3 04:53 Drug: AtroVENT (ipratropium) Aerosol 0.5 mg Route: Inhalation; kd3 05:07 Follow up: Response: No adverse reaction kd3 Outcome: 05:02 Discharge ordered by MD. balbuena 05:16 Discharged to home ambulatory. kd3 05:16 Condition: stable 05:16 Discharge instructions given to patient, family, Instructed on discharge instructions, follow up and referral plans. medication usage, Demonstrated understanding of instructions, follow-up care, medications, Prescriptions given X 4. 05:17 Patient left the ED. kd3 Signatures: Dispatcher [employer] EDKarsten Mckinnon MD MD cha Alexander, Jessica ja2 Doucette, Kyli RN RN kd3 Kim Chan RN lp1
--- NOTE | 2021-09-11 05:03 | EDPHYS ---
Physician Documentation [facility] Name: Javier Saravia Age: 60 yrs Sex: Male : 1960 Arrival Date: 09/11/2021 Time: 03:42 Bed 5 Private MD: ED Physician Karsten Calvert HPI: 09/11 03:57 This 60 yrs old Male presents to ER via Ambulatory with complaints of esha Congestion, Eye Problem. 03:57 The patient is experiencing foreign body sensation, pain, redness, to the right eye. esha Onset: The symptoms/episode began/occurred 3 day(s) ago. Duration: the symptoms are continuous. Aggravated by nothing. Alleviated by covering eye. Associated signs and symptoms: Pertinent positives: None. Pertinent negatives: None. Historical: - Home Meds: 03:54 amlodipine 5 mg oral tab 1 tab once daily [Active]; tacrolimus 1 mg oral Tb24 2 tabs kd3 once daily [Active]; CellCept 500 mg Oral tab 1 tabs 2 times per day [Active]; magnesium oxide 400 mg (241.3 mg magnesium) Oral tab daily [Active]; Vitamin D Oral 50,000 unit [Active]; rosuvastatin 20 mg oral cpSP 1 cap once daily [Active]; losartan 50 mg oral tab 1 tab once daily [Active]; Otezla 30 mg oral tab 1 tab 2 times per day [Active]; gabapentin 300 mg oral cap 1 cap in the evening [Active]; - PMHx: 03:54 Cirrhosis; Hypertension; psoriasis; kd3 - Immunization history:: Adult Immunizations up to date, Client reports having NOT received the Covid vaccine. Flu vaccine is up to date. - Social history:: Smoking status: Patient denies any tobacco usage or history of. - Family history:: not pertinent. ROS: 03:59 Constitutional: Negative for fever, chills, and weight loss, ENT: Negative for injury, esha pain, and discharge, Neck: Negative for injury, pain, and swelling, Cardiovascular: Negative for chest pain, palpitations, and edema, Abdomen/GI: Negative for abdominal pain, nausea, vomiting, diarrhea, and constipation, Back: Negative for injury and pain, : Negative for injury, bleeding, discharge, and swelling, MS/Extremity: Negative for injury and deformity, Skin: Negative for injury, rash, and discoloration, Neuro: Negative for headache, weakness, numbness, tingling, and seizure. 03:59 Respiratory: Positive for cough, "sounds productive". Exam: 03:59 Constitutional: This is a well developed, well nourished patient who is awake, alert, esha and in no acute distress. Head/Face: Normocephalic, atraumatic. Eyes: Pupils equal round and reactive to light, extra-ocular motions intact. Lids and lashes normal. Conjunctiva and sclera are non-icteric and not injected. Cornea within normal limits. Periorbital areas with no swelling, redness, or edema. ENT: Nares patent. No nasal discharge, no septal abnormalities noted. Tympanic membranes are normal and external auditory canals are clear. Oropharynx with no redness, swelling, or masses, exudates, or evidence of obstruction, uvula midline. Mucous membranes moist. Neck: Trachea midline, no thyromegaly or masses palpated, and no cervical lymphadenopathy. Supple, full range of motion without nuchal rigidity, or vertebral point tenderness. No Meningismus. Chest/axilla: Normal chest wall appearance and motion. Nontender with no deformity. No lesions are appreciated. Cardiovascular: Regular rate and rhythm with a normal S1 and S2. No gallops, murmurs, or rubs. Normal PMI, no JVD. No pulse deficits. Abdomen/GI: Soft, non-tender, with normal bowel sounds. No distension or tympany. No guarding or rebound. No evidence of tenderness throughout. Back: No spinal tenderness. No costovertebral tenderness. Full range of motion. Skin: Warm, dry with normal turgor. Normal color with no rashes, no lesions, and no evidence of cellulitis. 03:59 Respiratory: the patient does not display signs of respiratory distress, Respirations: labored breathing, that is mild, Breath sounds: bronchial sounds, that are moderate, are scattered, decreased breath sounds, that are moderate, are scattered. 04:49 ECG was reviewed by the Attending Physician. [facility] Vital Signs: 04:55 BP 101 / 67; Pulse 84; Resp 19; Temp 98.2; Pulse Ox 100% on R/A; Weight 112.49 kg; kd3 Height 5 ft. 8 in. (172.72 cm); Pain 0/10; 05:16 BP 116 / 67; Pulse 94; Resp 16; Pulse Ox 96% on R/A; kd3 04:55 Body Mass Index 37.71 (112.49 kg, 172.72 cm) kd3 MDM: 03:52 Patient medically screened. [facility] 04:49 Differential diagnosis: Infectious conjunctivitis in. Antibiotic administration: The [facility] patient is discharged and will get outpatient antibiotics, Zithromax. The patient's Wells Deep Vein Thrombosis Score was calculated as follows: Total Score: 0-2 Pts- Low Risk. Differential Diagnosis: Bronchitis Influenza Sinusitis Pharyngitis Viral Syndrome Pneumonia. The patient's pulmonary embolism risk score was calculated as follows: Total Score: 0-2 points. This patient was found to be at low risk for a pulmonary embolism by using the Well's assessment criteria. Immunization status: Influenza vaccine:. Data reviewed: vital signs, nurses notes, lab test result(s), EKG, radiologic studies, plain films. Data interpreted: monitoring tech: rate is 85 beats/min, rhythm is regular, Pulse oximetry: on room air is 100 %. Test interpretation: by ED physician or midlevel provider: ECG, plain radiologic studies. 09/11 03:56 Order name: Basic Metabolic Panel; Complete Time: 05:02 [facility] 09/11 03:56 Order name: CBC with Diff; Complete Time: 05:02 [facility] 09/11 03:56 Order name: LFT's; Complete Time: 05:02 [facility] 09/11 03:56 Order name: Magnesium; Complete Time: 05:02 [facility] 09/11 03:56 Order name: NT PRO-BNP; Complete Time: 05:02 [facility] 09/11 03:56 Order name: PT-INR; Complete Time: 05:02 [facility] 09/11 03:56 Order name: Troponin HS; Complete Time: 05:02 [facility] 09/11 03:56 Order name: XRAY Chest (1 view) [facility] 09/11 03:56 Order name: COVID-19/FLU A+B/RSV (Document "Date of Onset" if Symptomatic) [facility] 09/11 03:56 Order name: Blood Culture Adult (2) [facility] 09/11 03:56 Order name: Lactate [facility] 09/11 03:56 Order name: EKG; Complete Time: 03:57 [facility] 09/11 03:56 Order name: Cardiac monitoring; Complete Time: 04:54 [facility] 09/11 03:56 Order name: EKG - Nurse/Tech; Complete Time: 04:54 [facility] 09/11 03:56 Order name: IV Saline Lock; Complete Time: 04:54 [facility] 09/11 03:56 Order name: Labs collected and sent; Complete Time: 04:54 [facility] 09/11 03:56 Order name: O2 Per Protocol; Complete Time: 04:54 [facility] 09/11 03:56 Order name: O2 Sat Monitoring; Complete Time: 04:54 [facility] EC:49 Rate is 85 beats/min. Rhythm is regular. QRS [place] is Normal. AR interval is normal. QRS esha interval is normal. QT interval is normal. No Q waves. T waves are Normal. No ST changes noted. Clinical impression: NSR w/ Non-specific ST/T Changes and No evidence of ischemia. Interpreted by me. Reviewed by me. Administered Medications: 03:59 CANCELLED (Physician Discretion): Tobramycin Drops (0.3 %) 1 drops Ophthalmic once; TO lp1 RIGHT EYE 04:53 Drug: Rocephin (cefTRIAXone) 1 grams Route: IV; Rate: per protocol; Site: right kd3 antecubital; 05:07 Follow up: Response: No adverse reaction kd3 05:16 Follow up: IV Status: Completed infusion kd3 04:53 Drug: Zithromax (azithromycin) 500 mg Route: PO; kd3 05:07 Follow up: Response: No adverse reaction kd3 04:53 Drug: Tobramycin Ointment (0.3 %) 1 application Route: Ophthalmic; Site: right eye; kd3 05:07 Follow up: Response: No adverse reaction kd3 04:53 Drug: Xopenex (levalbuterol) 1.25 mg Route: Inhalation; kd3 05:07 Follow up: Response: No adverse reaction kd3 04:53 Drug: AtroVENT (ipratropium) Aerosol 0.5 mg Route: Inhalation; kd3 05:07 Follow up: Response: No adverse reaction kd3 Disposition Summary: 09/11/21 05:02 Discharge Ordered Location: Home esha Problem: new esha Symptoms: have improved esha Condition: Stable esha Diagnosis - Bronchitis, not specified as acute or chronic esha - Acute upper respiratory infection, unspecified esha - Unspecified cirrhosis of liver esha - Liver disease, unspecified - WITH Liver Transplant esha - Other conjunctivitis - right esha Followup: esha - With: Private Physician - When: 2 - 3 days - Reason: Recheck today's complaints, Continuance of care, Re-evaluation by your physician Discharge Instructions: - Discharge Summary Sheet esha - Acute Bronchitis, Adult esha - Cirrhosis esha - Upper Respiratory Infection, Adult esha - Cool Mist Vaporizer esha - Upper Respiratory Infection, Adult, [id number] esha - Cough, Adult [facility] Forms: - Medication Reconciliation Form [facility] - Thank You Letter esha - Antibiotic Education esha - Prescription Opioid Use [facility] Prescriptions: - albuterol sulfate 90 mcg/actuation Inhalation HFA aerosol inhaler - inhale 2 puff by INHALATION route every 6 hours; 1 Pump; Refills: 0, Product [facility] Selection Permitted - Zithromax 500 mg Oral Tablet - take 1 tablet by ORAL route once daily for 5 days; 5 tablet; Refills: 0, [facility] Product Selection Permitted - tobramycin 0.3 % Ophthalmic ointment - apply 1 ribbon by OPHTHALMIC route 2-3 times daily; 3.5 gram; Refills: 0, [facility] Product Selection Permitted - Bromfed DM 2-30-10 mg/5 mL Oral syrup - take 7.5 milliliter by ORAL route every 6 hours; 160 milliliter; Refills: 0, [facility] Product Selection Permitted Signatures: Dispatcher [employer] EDKarsten Mckinnon MD MD cha Pena, Laura, RN RN lp1 Melita Leal RN RN kd3 Corrections: (The following items were deleted from the chart) 03:59 03:57 Tobramycin Drops (0.3 %) 1 drops Ophthalmic once; TO RIGHT EYE ordered. esha lp1
[2021-09-11 05:06] LABS: SARS-COV-2 RT PCR NEGATIVE (NEGATIVE)
[2021-09-11 05:21] VITALS: TEMP 98.2
[2021-09-11 05:22] VITALS: BP 116/67; O2SAT 96
--- NOTE | 2021-09-11 07:41 | EKG ---
Test Date: 2021-09-11 Test Time: 04:44:09 Nat Instructor: [id number] MEASUREMENT RESULTS: Intervals: Rate: 85 VA: 138 QRSD: 84 QT: 362 QTc: 430 [place]: P: 66 VA: 138 QRS: 51 T: 48 INTERPRETIVE STATEMENTS: Normal sinus rhythm Normal ECG Compared to ECG 10/29/2010 10:15:00 Prolonged QT interval no longer present Electronically Signed On 09-11-21 07:41:11 CDT by Junior Green
--- NOTE | 2021-09-11 20:02 | RAD REPORT ---
EXAM DESCRIPTION: RAD - Chest Single View - 09/11/2021 4:16 am CLINICAL HISTORY: The patient is 60 years old and is Male; Cough;Dyspnea TECHNIQUE: Frontal view of the chest. COMPARISON: No relevant prior studies available. FINDINGS: Lungs: Mildly prominent vasculature and interstitial markings. No consolidation. Pleural space: Unremarkable. No pneumothorax. Heart: Unremarkable. Mediastinum: Unremarkable. Bones/joints: Unremarkable. IMPRESSION: Mildly prominent vasculature and interstitial markings. No consolidation. Electronically signed by: Antony Decker MD 09/11/2021 4:33 AM CDT Due to temporary technical issues with the PACS/Fluency reporting system, reports are being signed by the in house radiologists without review as a courtesy to insure prompt reporting. The interpreting radiologist is fully responsible for the content of the report.
== END 2021-09-11 05:17 | disposition home or self-care (01) ==
LOC: ER 03:37
DX: J40 Bronchitis, not specified as acute or chronic (principal); J06.9 Acute upper respiratory infection, unspecified; H10.89 Other conjunctivitis; K74.60 Unspecified cirrhosis of liver; Z94.4 Liver transplant status; K76.9 Liver disease, unspecified; I10 Essential (primary) hypertension; Z20.822 Contact with and (suspected) exposure to COVID-19
CPT/HCPCS: 96365; 93005; 87040 ×2; 85025; 80048; 36415; 83735; 85610; 80076; 83605; 84484; 83880; 0241U; 71045; 99285

== ENCOUNTER 2022-03-09 12:38 | Emergency (ER) | payer OTHER ==
--- OUTSIDE RECORDS SUMMARY | 2022-03-09 12:43 | XMS REPORT | Continuity of Care Document ---
:1960 Author Organization [facility] t Address [address] [place] [address] Care Team Providers Name Role Phone Hernesto Magdaleno Gómez Primary Care Physician Taylor CORONA, Luis Miguel Perez Attending Clinician [facility] Attending Clinician Unavailable Shade CORONA, Reynaldo Attending Clinician Jacqueline REYES, Jamarcus Case Attending Clinician Roland Feng RN Attending Clinician Unavailable Therapy, [facility] Attending Clinician Unavailable Av Miguel MD Attending Clinician AV MIGUEL Attending Clinician Unavailable Doctor Unassigned, [place] Attending Clinician Unavailable Kerline Bryant LCSW Attending Clinician Unavailable Nat Sanchez Attending Clinician Unavailable Henny Lozoya RN Attending Clinician Unavailable Polina Salas MA Attending Clinician Unavailable Yuli Pickering Attending Clinician Unavailable Jocelyn Pabon LCSW Attending Clinician Unavailable Lavonne CORONA, Shant Cazares Attending Clinician Cleo Muse MA Attending Clinician Unavailable Rene Steele Attending Clinician Richy Almaguer MD Attending Clinician [phone] [address] Attending Clinician Unavailable Therapy, [facility] Attending Clinician Unavailable Richy Coyne MD Attending Clinician JERMAIN DOBBS Attending Clinician Unavailable TONIE TALLEY Attending Clinician Unavailable ALVARO MALONE Attending Clinician Unavailable DORI GAMEZ Attending Clinician Unavailable CHUYITA COLLINS Attending Clinician Unavailable Payers Payer Name Policy Type Policy Number Effective Date Expiration Date Nakul swartz AEGuidoNA MEDICARE OUT [id number] 2019 OF NETWORK 00:00:00 Problems Condition Condition Condition Status Onset Resolution Last Treating Co mments Source Name Details Category Date Date Treatment Clinician Date 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 [facility] mass mass 0 00:00: Hospita 00 l Cancer of Cancer of Disease Active 2019-06 [facility] liver, liver, 0 primary primary 00:00: Hospita 00 l Primary Primary Disease Recurre Method i osteoarthr osteoarthr nce 02-26 itis of itis of 00:00: Hospita left knee left knee 00 l DDD DDD Disease Active Methodi (degenerat (degenerat 12-07 st agustín disc agustín disc 00:00: Hospit a [...] Jaundice Jaundice Disease Active Metho di 06-25 st 00:00: Hospita 00 l Cellulitis Cellulitis Disease Active M ethodi and and 03-19 abscess of abscess of 00:00: Ho spita lower lower 00 l extremity extremity [id number] Disease Active Methodi 03-19 st 00:00: Hospita 00 l Awaiting Awaiting Disease Active Metho di liver liver 09-16 st transplant transplant 00:00: Ho spita 00 l 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 02-26 00:00: Hospita 00 l Hepatic Hepatic Disease Active Methodi encephalop encephalop 02-26 athy athy 00:00: Hospita 00 l Portal Portal Disease Active Methodi hypertensi hypertensi 02-26 on on 00:00: Hospita 00 l 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 00:00: Hospita without without 00 l bleeding bleeding Decompensa Decompensa Disease Active M ethodi tion of tion of 02-26 cirrhosis cirrhosis 00:00: [facility] of liver of liver 00 l Liver Liver Disease Active Methodi transplant transplant [facility] 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 Met 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 current st use of use of Hospita immunosupp immunosupp l ressive ressive drug drug 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 Hospita l Allergies, Adverse Reactions, Alerts Allergy Allergy Status Severity Reaction(s) Onset Inactive Treating Comm ents Source Name Type Date Date Clinician SHELLFIS DRUG Active Unknown-Cmnt Un efrain H INGREDI 06-25 ity of DERIVED 00:00: Medical Branch Ayshafis Propensi Active Unknown - Uni vers h ty to See comments 06-25 ity of Derived adverse 00:00: [place] reaction 00 Medical [facility] Shellfis Propensi Active Method i h ty to 06-25 st Derived adverse 00:00: Hospita reaction 00 l s to drug Codeine Propensi Active Nausea Only 2015-06 Me thodi ty to 06-23 st adverse 00:00: Hospita reaction 00 l s to drug CODEINE DRUG Active NAUSEA ONLY Univ ers INGREDI 4-20 ity of 00:00: [place] [facility] Codeine Drug Active Nausea Univers Intolera and/or 4-20 ity of nce Vomiting 00:00: Medical Branch NO KNOWN Drug Active Univers ALLERGIE Class ity of S [facility] Social History Social Habit Start Date Stop Date Quantity Comments Source History SDOH [facility] Alcohol Frequency Hospita l History SDOH [facility] Alcohol Std Hospital Drinks History SDOH [facility] Alcohol Binge Hospital Alcohol intake 2021-08-21 2021-08-21 Current [facility] 00:00:00 00:00:00 non-drinker of Hospital alcohol (finding) Alcohol Comment 2018-08-23 2018-08-23 previously [facility] 00:00:00 00:00:00 alcoholic, quit Hospital drinking 03/2008 Tobacco use and 2016-06-30 2016-06-30 Smokeless tobacco Me [facility]odist exposure 00:00:00 00:00:00 non-user Hospital Sex Assigned At [birth year] [facility] 00:00:00 00:00:00 Hospital Smoking Status Start Date Stop Date Source Tobacco smoking consumption [facility] Never smoked tobacco [facility] H ospital Medications Ordered Filled Start Stop Current Ordering Indication Dosage Frequency Signature Comments Components Source Medication Medication Date Date Medication? Clinician (SIG) Name Name tacrolimus Yes [id number] Take 2 Methodi (PROGRAF) 1 3-[address] MG capsule 00:00: (2 mg Hospit a 00 total) by l mouth every morning AND 1 capsule (1 mg total) every evening. ergocalcife 2022- No [id number] Q7D Take 1 M ethodi rol 07-[address] (VITAMIN 00:00: 05:59 (50,000 Hospi ta D2) 50,000 00 :00 Units l unit total) by capsule mouth once a week. methocarbam 2020-06 Yes TAKE ONE Me thodi oL 2-[address] (ROBAXIN) 00:00: MOUTH FOUR Ho spita 500 MG 00 TIMES A l tablet DAY methocarbam 2020-06 Yes TAKE ONE Me thodi oL 2-[address] (ROBAXIN) 00:00: MOUTH FOUR Ho spita 500 MG 00 TIMES A l tablet DAY acetaminoph 2020-06- No [id number] chronic M ethodi en-codeine 08-[address] (TYLENOL 00:00: 05:59 ONE TABLET Ho spita WITH 00 :00 BY MOUTH l CODEINE #3) THREE 300-30 mg TIMES A per tablet DAY FOR 10 DAYS acetaminoph 2020-06- [place] [id number] chronic M ethodi en-codeine 08-[address] (TYLENOL 00:00: 05:59 ONE TABLET Ho spita WITH 00 :00 BY MOUTH l CODEINE #3) THREE 300-30 mg TIMES A per tablet DAY FOR 10 DAYS casirivimab 2020-06- No [id number] 1200mg 1,200 mg, Univers 600 08-08 IV ity of mg-imdevima 20:00: 15:00 Infusion, [place] b 600 mg 00 :00 ONCE, Medical (REGEN-COV Administer Bra [facility] (E[facility])) 1200 over 20 mg in 60 [...] temperatur e. &nbs p;
tacrolimus 2023- No [id number] 2mg Q.5D Take 2 Methodi (PROGRAF) 1 03-[address] MG capsule 00:00: 04:59 (2 mg Hospi ta 00 :00 total) by l mouth 2 (two) times a day. tacrolimus 2021- No [id number] 2mg Q.5D Take 2 Methodi (PROGRAF) 1 03-18 03-[address] MG capsule 00:00: 00:00 (2 mg Hospi ta 00 :00 total) by l mouth 2 (two) times a day. tacrolimus 2020- No [id number] 2mg Q.5D Take 2 Methodi (PROGRAF) 1 03-18- capsules st MG capsule 00:00: 00:00 (2 mg Hospi ta 00 :00 total) by l mouth 2 (two) times a day. tacrolimus 2020- No [id number] 2mg Q.5D Take 2 Methodi (PROGRAF) 1 03-18- capsules st MG capsule 00:00: 00:00 (2 mg Hospi ta 00 :00 total) by l mouth 2 (two) times a day. mycophenola Yes [id number] 500mg Q.5D Take 1 Methodi te 02-[address] (CELLCEPT) 00:00: (500 mg [facility] 500 mg 00 total) by l tablet mouth 2 (two) times a day. mycophenola 2021- No [id number] 500mg Q.5D Take 1 Methodi te 02-19 09- tablet st (CELLCEPT) 00:00: 04:59 (500 mg Hos jose francisco 500 mg 00 :00 total) by l tablet mouth 2 (two) times a day. acetaminoph Tylenol-Co Methodi en-codeine 6-15 06-15 deine #3 st (TYLENOL 13:04: 00:00 300 mg-30 Hos jose francisco WITH 50 :00 mg tablet l CODEINE #3) Take 1 300-30 mg tablet 3 per tablet times a day by oral route for 10 days. acetaminoph 2020- [place] [id number] chronic M ethodi en-codeine 6-15 12-[address] (TYLENOL 00:00: 00:00 Tylenol-Co Ho spita WITH 00 :00 deine #3 l CODEINE #3) 300 mg-30 300-30 mg mg tablet per tablet Take 1 tablet 3 times a day by oral route for 10 days. acetaminoph 2020- [place] [id number] chronic M ethodi en-codeine 6-15 12-[address] (TYLENOL 00:00: 00:00 Tylenol-Co Ho spita WITH 00 :00 deine #3 l CODEINE #3) 300 mg-30 300-30 mg mg tablet per tablet Take 1 tablet 3 times a day by oral route for 10 days. magnesium 2021- No 400mg Q.5D Take 1 Meth sebas oxide 6- 06-[address] (MAG-OX) 00:00: 04:59 (400 mg Hospi ta 400 mg 00 :00 total) by l (241.3 mg mouth 2 magnesium) (two) tablet times a day. magnesium 2021- No 400mg Q.5D Take 1 Meth sebas oxide 11-28- tablet st (MAG-OX) 00:00: 04:59 (400 mg Hospi ta 400 mg 00 :00 total) by l (241.3 mg mouth 2 magnesium) (two) tablet times a day. gabapentin 2020-2021- No 300mg Q.[id number] Take 1 Methodi (NEURONTIN) 09-10- [id number] capsule st 300 mg 00:00: 04:59 3D (300 mg Hospita capsule 00 :00 total) by l mouth 3 (three) times a day. gabapentin 2020-2021- No 300mg Q.[id number] Take 1 Methodi (NEURONTIN) 09-[id number] 300 mg 00:00: 04:59 3D (300 mg Hospita capsule 00 :00 total) by l mouth 3 (three) times a day. gabapentin 2020- No 300mg Q.[id number] Take 1 Methodi (NEURONTIN) 09-[id number] 300 mg 00:00: 00:00 3D (300 mg Hospita capsule 00 :00 total) by l mouth 3 (three) times a day. rosuvastati Yes [id number] 20mg QD Take 1 Methodi n (CRESTOR) - tablet (20 st 20 mg 00:00: mg total) Hospita tablet 00 by mouth l every evening. tacrolimus 2021- No [id number] .5mg Q.5D Take 1 Methodi (PROGRAF) 08-22- capsule st 0.5 MG 00:00: 05:59 (0.5 mg Hospita capsule 00 :00 total) by l mouth 2 (two) times a day. rosuvastati 2020-2021- No [id number] 20mg QD Take 1 Methodi n (CRESTOR) 08-22-05 tablet (20 s t 20 mg 00:00: 05:59 mg total) Hospit a tablet 00 :00 by mouth l every evening. tacrolimus 2020-2021- No [id number] .5mg Q.5D Take 1 Methodi (PROGRAF) 3- 03-[address] 0.5 MG 00:00: 00:00 (0.5 mg Hospita capsule 00 :00 total) by l mouth 2 (two) times a day. methocarbam 2020- No 500mg Q.25D Take 1 M ethodi oL 3- 12-[address] (Robaxin) 00:00: 00:00 (500 mg [facility] 500 MG 00 :00 total) by l tablet mouth 4 (four) times a day for 30 days. methocarbam 2020- No 500mg Q.25D Take 1 M ethodi oL 3- 12-[address] (Robaxin) 00:00: 00:00 (500 mg [facility] 500 MG 00 :00 total) by l tablet mouth 4 (four) times a day for 30 days. mycophenola 2020- No [id number] 500mg Q.5D Take 1 Methodi te 08-22- tablet st (CELLCEPT) 00:00: 00:00 (500 mg Hos jose francisco 500 mg 00 :00 total) by l tablet mouth 2 (two) times a day. acetaminoph 2020- No [id number] 1{tbl} Q4H Take 1-2 Methodi en-codeine 08-22-[address] (TYLENOL 00:00: 04:59 mouth Hospita WITH 00 :00 every 4 l CODEINE #3) (four) 300-30 mg hours as per tablet needed for moderate pain for up to 20 days .acute pain, chronic pain. ergocalcife 2021- No [id number] Q7D Take 1 M ethodi rol 08-13- capsule st (VITAMIN 00:00: 05:59 (50,000 Hospi ta D2) 50,000 00 :00 Units l unit total) by capsule mouth once a week. ergocalcife 2021- No [id number] Q7D Take 1 M ethodi rol -07-[address] (VITAMIN 00:00: 00:00 (50,000 Hospi [...] exas 0.9% (NS) 00 :00 08/03/20 at [facility] jose eduardo 270 mL 0915, For Branch infusion 1 dose
Ad seed cone picker as an IV infusion over 60 minutes [...] exas 0.9% (NS) 00 :00 08/03/20 at [facility] jose eduardo 270 mL 0915, For Branch infusion 1 dose
Ad seed cone picker as an IV infusion over 60 minutes [...] (68?F to 77?F) including infusion time.
losartan 0 Yes 50mg QD Take 50 mg Met hodi (COZAAR) 50 1-[address] MG tablet 14:14: daily. Hospit a 41 l amLODIPine 2020-0 Yes 5mg QD Take 5 mg Me thodi (NORVASC) 5 1-[address] mg tablet 14:14: daily. Hospit a 41 l apremilast 0 Yes 30mg Q.5D Take 30 mg M ethodi (Otezla) 30 1-[address] mg tablet 14:14: (two) Hospita 41 times a l day. losartan 0 Yes 50mg QD Take 50 mg Met hodi (COZAAR) 50 1-[address] MG tablet 14:14: daily. Hospit a 41 l amLODIPine 0 Yes 5mg QD Take 5 mg Me thodi (NORVASC) 5 1-[address] mg tablet 14:14: daily. Hospit a 41 l apremilast 0 Yes 30mg Q.5D Take 30 mg M ethodi (Otezla) 30 1-[address] mg tablet 14:14: (two) Hospita 41 times a l day. traMADoL 2019-06 Yes [id number] 50mg Q4H Take 1 Method i (ULTRAM) 50 0-27 tablet (50 st mg tablet 00:00: mg total) Hos jose francisco 00 by mouth l every 4 (four) hours as needed for moderate pain for up to 30 days .chronic pain. traMADoL 2019-06- No [id number] 50mg Q4H Take 1 Metho di (ULTRAM) 50 0-27 03-03 tablet (50 s t mg tablet 00:00: 00:00 mg total) Ho spita 00 :00 by mouth l every 4 (four) hours as needed for moderate pain for up to 30 days .chronic pain. tacrolimus 2019-06- No 1mg Q.5D Take 1 Meth sebas (PROGRAF) 1 0-15 -28 capsule (1 s t MG capsule 00:00: 00:00 mg total) H ospita 00 :00 by mouth 2 l (two) times a day. tacrolimus 2019-06 No 1mg Q.5D Take 1 Meth sebas (PROGRAF) 1 0-15 -28 capsule (1 s t MG capsule 00:00: 00:00 mg total) H ospita 00 :00 by mouth 2 l (two) times a day. tacrolimus 2019-06 No .5mg Q.5D Take 1 Meth sebas (PROGRAF) 0-15 03-[address] 0.5 MG 00:00: 00:00 (0.5 mg Hospita capsule 00 :00 total) by l mouth 2 (two) times a day. magnesium No 400mg Q.5D Take 1 Meth sebas [...] l tablet mouth every 8 (eight) hours. methocarbam No 750mg Q8H Take 1 Me thodi oL 4-07 03-[address] (Robaxin-75 00:00: 00:00 (750 mg Ho spita 0) 750 MG 00 :00 total) by l tablet mouth every 8 (eight) hours. rosuvastati No 20mg QD Take 1 Met hodi n (CRESTOR) 225 02-26 tablet (20 s t 20 MG 00:00: 05:59 mg total) Hospit a tablet 00 :00 by mouth l every evening. ergocalcife No [id number] Q7D Take 1 M ethodi rol - 02-[address] (VITAMIN 00:00: 00:00 (50,000 Hospi [...] 00:00: mouth Hospita tablet 00 daily. l aspirin Yes 81mg QD Take 1 Methodi (ECOTRIN) 1-21 tablet (81 st 81 MG 00:00: mg total) Hospita enteric 00 by mouth l coated every tablet morning. multivitami Yes 1{tbl} QD Take 1 Me thodi n with 1-[address] minerals 00:00: mouth Hospita tablet 00 daily. l Immunizations Ordered Immunization Filled Immunization Date Status Commen ts Source Name Name DEWAYNEX LISE 2018-03-[address] 00:00:00 [facility] Pneumococcal 2018-03-26 Completed [facility] Polysaccharide 00:00:00 [facility] FLUCELVAX QUAD 2018-03-[address] 00:00:00 [facility] Pneumococcal 2018-03-26 Completed [facility] Polysaccharide 00:00:00 Hospital Vital Signs Vital Name Observation Time Observation Value Comments Source Systolic blood 2021-06-07 167 mm[Hg] University of pressure 15:49:00 [facility] Diastolic blood 2021-06-07 83 mm[Hg] University o f pressure 15:49:00 [facility] Heart rate 2021-06-07 82 /min University 15:49:00 [facility] Body temperature 2021-06-07 37.17 Michelle University 15:49:00 [facility] Respiratory rate 2021-06-07 18 /min University of 15:49:00 [facility] Oxygen saturation 2021-06-07 96 /min [facility] in Arterial blood 15:49:00 [facility] by Pulse oximetry [facility] Body height 2021-06-07 165.1 cm University of 14:27:00 [facility] Body weight 2021-06-07 97.523 kg University of 14:27:00 [facility] BMI 2021-06-07 35.78 kg/m2 University of 14:27:00 [facility] Systolic blood 2020-08-03 179 mm[Hg] University of pressure 17:15:00 [facility] Diastolic blood 2020-08-03 84 mm[Hg] University o f pressure 17:15:00 [facility] Heart rate 2020-08-03 104 /min University 17:15:00 [facility] Body temperature 2020-08-03 37 Michelle University 17:15:00 [facility] Respiratory rate 2020-08-03 18 /min University 17:15:00 [facility] Oxygen saturation 2020-08-03 97 /min [facility] in Arterial blood 17:15:00 [facility] by Pulse oximetry [facility] Body height 2020-08-03 172.7 cm University 14:10:00 [facility] Body weight 2020-08-03 113.399 kg [facility] 14:10:00 [facility] BMI 2020-08-03 38.01 kg/m2 University 14:10:00 [facility] Systolic blood 2021-11-27 133 mm[Hg] [facility] pressure 18:51:00 [facility] Diastolic blood 2021-11-27 65 mm[Hg] [facility] pressure 18:51:00 [facility] Heart rate 2021-11-27 81 /min [facility] 18:51:00 [facility] Body temperature 2021-11-27 37.33 Michelle [facility] 18:51:00 [facility] Respiratory rate 2021-11-27 17 /min [facility] 18:51:00 [facility] Body height 2021-11-27 172.7 cm [facility] 18:51:00 [facility] Body weight 2021-11-27 110.451 kg [facility] 18:51:00 [facility] BMI 2021-11-27 37.02 kg/m2 [facility] 18:51:00 Hospital Oxygen saturation 2021-11-27 96 /min [facility] in Arterial blood 18:51:00 Hospital by Pulse oximetry Systolic blood 2021-04-03 161 mm[Hg] taken his bp [facility] pressure 20:10:00 medication this Hospital morning Diastolic blood 2021-04-03 77 mm[Hg] taken his bp [facility] pressure 20:10:00 medication this Hospital morning Heart rate 2021-04-03 73 /min [facility] 20:10:00 Hospital Body temperature 2021-04-03 36.22 Michelle [facility] 20:10:00 Hospital Respiratory rate 2021-04-03 16 /min [facility] 20:10:00 Hospital Body weight 2021-04-03 111.494 kg [facility] 20:10:00 Hospital BMI 2021-04-03 37.37 kg/m2 [facility] 20:10:00 Hospital Oxygen saturation 2021-04-03 97 /min [facility] in Arterial blood 20:10:00 Hospital by Pulse oximetry Body height 2020-08-22 172.7 cm [facility] 18:42:00 Hospital Procedures Procedure Date / Time Performing Clinician Source Performed MAGNESIUM LEVEL 2021-11-25 13:46:00 [facility] HEPATIC FUNCTION PANEL 2021-11-25 13:46:00 [facility] BASIC METABOLIC PANEL, 2021-11-25 13:46:00 [facility] PLASMA PHOSPHATIDYLETHANOL, BLOOD 2021-11-25 13:46:00 [facility] PROTHROMBIN TIME WITH INR 2021-11-25 13:46:00 [facility] CBC WITH PLATELET AND 2021-11-25 13:46:00 [facility] DIFFERENTIAL [id number] TACROLIMUS LEVEL, 2021-11-25 13:46:00 [facility] RANDOM CT CHEST WO CONTRAST 2021-08-21 17:14:05 [facility] MRI ABDOMEN W WO CONTRAST 2021-08-21 16:25:00 [facility] [id number] IGG 2021-08-21 15:05:00 [facility] HC COMPLETE BLD COUNT 2021-08-21 15:05:00 [facility] W/AUTO DIFF COMPREHENSIVE METABOLIC 2021-08-21 15:05:[address] [facility] PANEL MAGNESIUM LEVEL 2021-08-21 15:05:00 [facility] HEMOGLOBIN A1C 2021-08-21 15:05:00 [facility] LIPID PANEL 2021-08-21 15:05:00 [facility] PARTIAL THROMBOPLASTIN 2021-08-21 15:05[facility] PROTHROMBIN TIME WITH INR 2021-08-21 15:05:00 [facility] VITAMIN D 1,25 DIHYDROXY 2021-08-21 15:05:00 [facility] LEVEL, SERUM CYTOMEGALOVIRUS BY PCR 2021-08-21 15:05:00 [facility] [place] VITAMIN D 25 HYDROXY LEVEL 2021-08-21 15:05:00 [facility] Aline eastman [facility] THYROID STIMULATING 2021-08-21 15:05:00 [facility] HORMONE URINE DRUGS OF ABUSE 2021-08-21 15:05:00 [facility] [place] [facility] SCREEN GGT 2021-08-21 15:05:00 [facility] PROTEIN, URINE, RANDOM 2021-08-21 15:05:00 [facility] [place] CREATININE LEVEL, URINE, 2021-08-21 15:05:00 [facility] RANDOM [id number] TACROLIMUS LEVEL, 2021-08-21 15:05:00 [facility] RANDOM HEPATOCELLULAR CARCINOMA 2021-08-21 15:05:00 [facility] MARKER PANEL PHOSPHATIDYLETHANOL, BLOOD 2021-08-21 15:05:00 TaylorLuis Miguel salcido [facility] ESTIMATED GFR 2021-08-21 15:05:00 [facility] DONOR SPECIFIC ANTIBODY 2021-08-21 15:05:00 [facility] CONSENT/REFUSAL FOR 2021-06-07 06:01:00 Doctor Unassigned, [facility] DIAGNOSIS AND TREATMENT [place] [facility] MAGNESIUM LEVEL 2021-04-01 13:21:00 [facility] COMPREHENS[facility] METABOLIC 2021-04-01 13:21:00 Luis Miguel Vazquez [facility] PANEL PROTHROMBIN TIME WITH INR 2021-04-01 13:21:00 TaylorLuis Miguel salcido Ma [facility] CBC WITH PLATELET AND 2021-04-01 13:21:00 Taylor [facility] DIFFERENTIAL [id number] TACROLIMUS LEVEL, 2021-04-01 13:21:00 [facility] RANDOM MAGNESIUM LEVEL 2021-02-03 12:47:00 Taylor, [facility] 2021-02-03 12:47:00 Taylor, [facility] PANEL PHOSPHATIDYLETHANOL, BLOOD 2021-02-03 12:47:00 Taylor, [facility] PROTHROMBIN TIME WITH INR 2021-02-03 12:47:00 Taylor, [facility] CBC WITH PLATELET AND 2021-02-03 12:47:00 Taylor, [facility] DIFFERENTIAL [id number] TACROLIMUS LEVEL, 2021-02-03 12:47:00 Taylor, [facility] RANDOM MAGNESIUM LEVEL 2020-12-25 12:41:00 Taylor, [facility] 2020-12-25 12:41:00 Taylor, [facility] PANEL PHOSPHATIDYLETHANOL, BLOOD 2020-12-25 12:41:00 Taylor, [facility] PROTHROMBIN TIME WITH INR 2020-12-25 12:41:00 Taylor, [facility] CBC WITH PLATELET AND 2020-12-25 12:41:00 [facility] DIFFERENTIAL [id number] TACROLIMUS LEVEL, 2020-12-25 12:41:00 [facility] RANDOM MAGNESIUM LEVEL 2020-10-31 12:39:00 Taylor, [facility] 2020-10-31 12:39:00 Taylor, [facility] PANEL PHOSPHATIDYLETHANOL, BLOOD 2020-10-31 12:39:00 [facility] PROTHROMBIN TIME WITH INR 2020-10-31 12:39:00 Taylor, [facility] CBC WITH PLATELET AND 2020-10-31 12:39:00 [facility] DIFFERENTIAL [id number] TACROLIMUS LEVEL, 2020-10-31 12:39:00 [facility] RANDOM MAGNESIUM LEVEL 2020-09-30 13:40:00 [facility] COMPREHENSIVE METABOLIC 2020-09-30 13:40:00 [facility] PANEL PHOSPHATIDYLETHANOL, BLOOD 2020-09-30 13:40:00 [facility] PROTHROMBIN TIME WITH INR 2020-09-30 13:40:00 [facility] CBC WITH PLATELET AND 2020-09-30 13:40:00 [facility] DIFFERENTIAL [id number] TACROLIMUS LEVEL, 2020-09-30 13:40:00 [facility] RANDOM MRI PELVIS WO CONTRAST 2020-09-06 17:10:00 Jamarcus Phillips [facility] MRI LUMBAR SPINE WO 2020-09-06 16:23:00 Jamarcus Phillips [facility] CONTRAST REFERRAL- REQUEST/RESPONSE 2020-08-01 06:01:00 Doctor Unassigned , [facility] Plan of Care Planned Activity Planned Date Details Comments Source Future Scheduled 2022-02-18 HEPATITIS B VACCINES [facility] Test 12:28:16 (1 of 3 - 3-dose series) [code = HEPATITIS B VACCINES (1 of 3 - 3-dose series)] Future Scheduled 2022-02-18 COVID-19 VACCINE (#1) [facility] Test 12:28:16 [code = COVID-19 VACCINE (#1)] Future Scheduled 2022-02-18 SHINGLES VACCINES (1 [facility] Test 12:28:16 of 2) [code = SHINGLES VACCINES (1 of 2)] Future Scheduled 2022-02-18 COLONOSCOPY SCREENING [facility] Test 12:28:16 [code = COLONOSCOPY SCREENING] Future Scheduled 2022-02-18 Pneumococcal Vaccine: [facility] Test 12:28:16 Pediatrics (0 to 5 Years) and At-Risk Patients (6 to 64 Years) (2 - PCV) [code = Pneumococcal Vaccine: Pediatrics (0 to 5 Years) and At-Risk Patients (6 to 64 Years) (2 - PCV)] Future Scheduled 2022-02-18 INFLUENZA VACCINE [facility] Test 12:28:16 [code = INFLUENZA VACCINE] Future Scheduled 2021-07-22 COVID-19 VACCINE (1) Met [facility] Hospital Test 06:14:35 [code = COVID-19 VACCINE (1)] Future Scheduled 2021-07-22 COLONOSCOPY SCREENING Me [facility] Test 06:14:35 [code = COLONOSCOPY SCREENING] Future Scheduled 2021-07-22 SHINGLES VACCINES (#1) M [facility] Hospital Test 06:14:35 [code = SHINGLES VACCINES (#1)] Future Scheduled 2021-07-22 INFLUENZA VACCINE Method [facility] Hospital Test 06:14:35 [code = INFLUENZA VACCINE] Encounters Start End Encounter Admission Attending Care Care Encounter Source Date/Time Date/Time Type Type Clinicians Facility Department ID 2022-01-21 2022-01-21 Refill Taylor, 1.2.840.1 [id number] Methodi 00:00:00 00:00:00 Luis Miguel Perez 48102.1.1 740 s t 3.430.2.7 Hospit a .3.350130 l .8 2021-11-27 2021-11-27 Social Jose L, 1.2.840.1 [id number] 4045 Methodi 15:00:00 15:15:00 Work Natalia 74230.1.[address] 3.430.2.7 Hospit a .3.899795 l .8 2021-11-27 2021-11-27 Office Shade, 1.2.840.1 [id number] 21 [id number] Methodi 14:00:00 14:15:00 Visit Reynaldo 18764.1.[address] 3.430.2.7 Hospit a .3.781448 l .8 2021-11-27 2021-11-27 Travel 1.2.840.1 1.2.740.513 7674 663236 Methodi 00:00:00 00:00:[address] 3.430.2.7 0.2.7.3.698 Ho spita .3.820693 084.8 l .8 2021-11-27 2021-11-27 Outpatient [facility] 144 [id number] [place] 00:00:00 00:00:00 REYNALDO [address] 2021-11-27 2021-11-27 Outpatient [facility] [id number] 910 [place] 00:00:00 00:00:[address] 2021-11-25 2021-11-25 Karen Vazquez, 1.2.840.4 [id number] 700 [id number] Methodi 00:00:00 00:00:00 Only Luis Miguel Perez 85110.1.1 253 s t 3.430.2.7 Hospit a .3.939633 l .8 2021-10-16 2021-10-16 Cha Phillips, 1.2.840.1 [id number] 71801 15302 Methodi 00:00:00 00:00:00 Jamarcus Case 90540.1.[address] 3.430.2.7 Hospit a .3.799719 l .8 2021-08-21 2021-08-21 [facility], 1.2.840.1 [id number] 2 [id number] Methodi 10:44:00 23:59:00 Encounter Reynaldo 64991.1.[address] 3.430.2.7 Hospit a .3.375831 l .8 2021-08-21 2021-08-21 [facility], 1.2.840.1 [id number] 21 [id number] Methodi 14:30:00 14:45:00 Visit Reynaldo 90637.1.[address] 3.430.2.7 Hospit a .3.245232 l .8 2021-08-21 2021-08-21 [facility], 1.2.840.1 [id number] 2 [id number] Methodi 09:28:24 10:43:00 Encounter Reynaldo 22420.1.[address] 3.430.2.7 Hospit a .3.746754 l .8 2021-08-21 2021-08-21 Travel 1.2.840.1 1.2.498.695 3614 176846 Methodi 00:00:00 00:00:[address] 3.430.2.7 0.2.7.3.698 Ho spita .3.977754 084.8 l .8 2021-08-21 2021-08-21 Outpatient [facility] 163 [id number] [place] 00:00:00 00:00:00 REYNALDO 030 Method i 2021-08-21 2021-08-21 Outpatient [facility] 931 [id number] [place] 00:00:00 00:00:00 REYNALDO 957 Method i 2021-08-21 2021-08-21 Outpatient [facility] 984 [id number] [place] 00:00:00 00:00:00 REYNALDO 958 Method i 2021-08-21 2021-08-21 Outpatient [facility] 999 [id number] [place] 00:00:00 00:00:00 REYNALDO [address] 2021-07-28 2021-07-28 Refill Ping, 1.2.840.1 [id number] 171415 6634 Methodi 00:00:00 00:00:[address] 3.430.2.7 Hospit a .3.733453 l .8 2021-07-22 2021-07-22 Orders Ping, 1.2.840.1 [id number] 783093 6395 Methodi 00:00:00 00:00:00 [address] Loideth [address]68.1.[address] 3.430.2.7 Hospit a .3.907373 l .8 2021-07-22 2021-07-22 Orders Ping, 1.2.840.1 010377986 019383 9050 Methodi 00:00:00 00:00:00 Only Loideth [address]394.1.[address] 3.430.2.7 Hospit a .3.507870 l .8 2021-06-23 2021-06-23 Orders Ping, 1.2.840.1 [id number] 132841 0256 Methodi 00:00:00 00:00:00 Only Loideth 20863.1.[address] 3.430.2.7 Hospit a .3.476871 l .8 2021-06-23 2021-06-23 Orders Ping, 1.2.840.1 [id number] 033772 7328 Methodi 00:00:00 00:00:00 Only Loideth 08394.1.[address] 3.430.2.7 Hospit a .3.562995 l .8 2021-06-12 2021-06-12 Refill Jacqueline, 1.2.840.1 [id number] 95611 Methodi 00:00:00 00:00:00 [address] 3.430.2.7 Hospit a .3.477025 l .8 2021-06-12 2021-06-12 Refsampson Phillips, 1.2.840.1 [id number] 47124 Methodi 00:00:00 00:00:[address] 3.430.2.7 Hospit a .3.918667 l .8 2021-06-10 2021-06-10 Refill Jacqueline, 1.2.840.1 [id number] 05534 35670 Methodi 00:00:00 00:00:[address] 3.430.2.7 Hospit a .3.150502 l .8 2021-06-10 2021-06-10 Refill Jacqueline, 1.2.840.1 [id number] 75650 Methodi 00:00:00 00:00:[address] 3.430.2.7 Hospit a .3.528690 l .8 2021-06-07 2021-06-07 Nurse Therapy, Clc Covid Infusion [facility] 1.2.840.114 [id number] [facility] 08:30:00 09:30:00 Visit [facility] 350.1.13.10 ity of [place] [facility] [phone] [facility] [address] OFFICE BUILDING 2021-06-07 2021-06-07 Outpatient R PRASANTH [facility] [id number] -20 Univers 08:30:00 08:30:00 AV 095621 ity [facility] 2021-06-07 2021-06-07 Outpatient Abdiel MIGUEL [facility] [id number] Univers 08:30:00 08:30:00 AV [facility] 2021-06-07 2021-06-07 Orders Doctor CALL 1.2.840.114 [id number] Univers 00:00:00 00:00:00 Only Unassigned, SERENA 350.1.13.10 ity of [facility] 4.2.7.2.686 Aakash [id number] [facility] [address] Branch 2021-05-26 2021-05-26 Orders Ping, 1.2.840.1 [id number] 094461 3471 Methodi 00:00:00 00:00:00 Only Loideth 08407.1.[address] 3.430.2.7 Hospit a .3.151497 l .8 2021-05-26 2021-05-26 Orders Ping, 1.2.840.1 [id number] 781682 5177 Methodi 00:00:00 00:00:00 Only Loideth 64158.1.[address] 3.430.2.7 Hospit a .3.830082 l .8 2021-05-12 2021-05-12 Cha Phillips, 1.2.840.1 [id number] 06942 79193 Methodi 00:00:00 00:00:00 Jamarcus Case 14095.1.[address] 3.430.2.7 Hospit a .3.172429 l .8 2021-05-12 2021-05-12 Cha Phillips 1.2.840.1 [id number] 40 Methodi 00:00:00 00:00:00 Jamarcus Case 56485.1.[address] 3.430.2.7 Hospit a .3.498875 l .8 2021-04-24 2021-04-24 Mark Bryant 1.2.840.1 [id number] 2100 764412 Methodi 00:00:00 00:00:[address] 3.430.2.7 Hospit a .3.997872 l .8 2021-04-24 2021-04-24 [facility], 1.2.840.1 [id number] 2099 936875 Methodi 00:00:00 00:00:[address] 3.430.2.7 Hospit a .3.079960 l .8 2021-04-03 2021-04-03 [facility], 1.2.840.1 [id number] 073511 4715 Methodi 16:15:35 16:30:35 Work Kerline 48814.1.[address] 3.430.2.7 Hospit a .3.857098 l .8 2021-04-03 2021-04-03 [facility], 1.2.840.1 [id number] 232173 8457 Methodi 15:45:00 16:00:00 Work Kerline 92003.1.[address] 3.430.2.7 Hospit a .3.310661 l .8 2021-04-03 2021-04-03 Office [facility], 1.2.840.1 [id number] [id number] Methodi 14:51:46 15:06:46 Visit Reynaldo 77070.1.[address] 3.430.2.7 Hospit a .3.404234 l .8 2021-04-03 2021-04-03 Office [facility], 1.2.840.1 [id number] Methodi 14:45:00 15:00:00 Visit Reynaldo 92306.1.[address] 3.430.2.7 Hospit a .3.718469 l .8 2021-04-03 2021-04-03 Travel 1.2.840.1 1.2.927.211 1982 854975 Methodi 00:00:00 00:00:[address] 3.430.2.7 0.2.7.3.698 Ho spita .3.939467 084.8 l .8 2021-04-03 2021-04-03 Travel 1.2.840.1 1.2.754.202 3750 533993 Methodi 00:00:00 00:00:[address] 3.430.2.7 0.2.7.3.698 Ho spita .3.406241 084.8 l .8 2021-04-01 2021-04-01 Orders Taylor, 1.2.840.7 [id number] 781 7416805 Methodi 00:00:00 00:00:00 Only Luis Miguel Chris 89552.1.1 609 s t 3.430.2.7 Hospit a .3.944048 l .8 2021-04-01 2021-04-01 Orders Taylor, 1.2.840.1 [id number] 569 5369844 Methodi 00:00:00 00:00:00 Only Luis Miguel Chris 29709.1.1 609 s t 3.430.2.7 Hospit a .3.474869 l .8 2021-03-18 2021-03-18 Refill Ping, 1.2.840.1 267429985 507966 3008 Methodi 00:00:00 00:00:[address] 3.430.2.7 Hospit a .3.768093 l .8 2021-03-18 2021-03-18 Refill Ping, 1.2.840.1 316327372 827440 1487 Methodi 00:00:00 00:00:[address] 3.430.2.7 Hospit a .3.230448 l .8 2021-03-18 2021-03-18 Refill Ping, 1.2.840.1 204256497 335573 8478 Methodi 00:00:00 00:00:[address] 3.430.2.7 Hospit a .3.547894 l .8 2021-03-18 2021-03-18 Refill Ping, 1.2.840.1 926352223 364096 4132 Methodi 00:00:00 00:00:[address] 3.430.2.7 Hospit a .3.575682 l .8 2021-02-20 2021-02-20 Telephone Manjit, 1.2.840.1 [id number] 21 [id number] Methodi 00:00:00 00:00:[address] 3.430.2.7 Hospit a .3.601369 l .8 2021-02-18 2021-02-18 Refill Ping, 1.2.840.1 556144691 957468 4063 Methodi 00:00:00 00:00:[address] 3.430.2.7 Hospit a .3.159105 l .8 2021-02-05 2021-02-05 Telephone Devora, 1.2.840.1 [id number] 21 [id number] Methodi 00:00:00 00:00:[address] 3.430.2.7 Hospit a .3.714415 l .8 2021-02-03 2021-02-03 Orders Taylor, 1.2.840.4 [id number] 426 7839663 Methodi 00:00:00 00:00:00 Only Luis Miguel Perez 98385.1.1 724 s t 3.430.2.7 Hospit a .3.541276 l .8 2020-12-28 2020-12-28 Transplant Ankoma-Yusuf, 1.2.840.1 946379028 0757138707 Methodi 07:01:04 07:16:04 Telemedici Reynaldo 71434.1.1 354 s t ne 3.430.2.7 Hospit a .3.877348 l .8 2020-12-26 2020-12-26 Telephone Maritza, 1.2.840.1 [id number] 624 4013526 Methodi 00:00:00 00:00:[address] 3.430.2.7 Hospit a .3.569401 l .8 2020-12-25 2020-12-25 Orders Taylor, 1.2.840.3 [id number] 282 0623214 Methodi 00:00:00 00:00:00 Only Shemalcolm Chris 82128.1.1 053 s t 3.430.2.7 Hospit a .3.937316 l .8 2020-12-03 2020-12-03 Telemedici Jacqueline, 1.2.840.1 [id number] 21 [id number] Methodi 11:39:49 11:59:49 ne Jamarcus Case 48225.1.[address] 3.430.2.7 Hospit a .3.397804 l .8 2020-11-28 2020-11-28 Refill Taylor, 1.2.840.1 [id number] 2099 308653 Methodi 00:00:00 00:00:00 Luis Miguel Perez 95605.1.1 530 s t 3.430.2.7 Hospit a .3.406389 l .8 2020-11-27 2020-11-27 Refill Taylor, 1.2.840.1 [id number] 2099 947857 Methodi 00:00:00 00:00:00 Luis Miguel Perez 72493.1.1 121 s t 3.430.2.7 Hospit a .3.323299 l .8 2020-11-27 2020-11-27 Refill Buchert, 1.2.840.1 [id number] 92776 Methodi 00:00:00 00:00:00 Jamarcus Case 72038.1.[address] 3.430.2.7 Hospit a .3.895738 l .8 2020-11-01 2020-11-01 Telephone Raheel, 1.2.840.1 [id number] 2100 730618 Methodi 00:00:00 00:00:[address] 3.430.2.7 Hospit a .3.002312 l .8 2020-10-31 2020-10-31 Orders Taylor, 1.2.840.1 [id number] 2099 269241 Methodi 00:00:00 00:00:00 Only Luis Miguel Perez 39205.1.1 249 s t 3.430.2.7 Hospit a .3.973878 l .8 2020-10-09 2020-10-09 Documentat Pepper, 1.2.840.1 [id number] 47378853 Methodi 00:00:00 00:00:00 ion Jocelyn 69588.1.[address] 3.430.2.7 Hospit a .3.627704 l .8 2020-10-04 2020-10-04 Telephone Ping, 1.2.840.1 [id number] 2100 028635 Methodi 00:00:00 00:00:[address] 3.430.2.7 Hospit a .3.776650 l .8 2020-10-02 2020-10-02 Procedure Lavonne, 1.2.840.1 [id number] 185 9701871 Methodi 11:38:54 15:23:37 visit Shant 30667.1.[address] Sage 3.430.2.7 Hospit a .3.898316 l .8 2020-10-02 2020-10-02 Travel 1.2.840.1 1.2.558.330 9946 752894 Methodi 00:00:00 00:00:[address] 3.430.2.7 0.2.7.3.698 Ho spita .3.529819 084.8 l .8 2020-09-30 2020-09-30 Orders Taylor, 1.2.840.1 [id number] 2100 028286 Methodi 00:00:00 00:00:00 Only Luis Miguel Perez 99077.1.1 483 s t 3.430.2.7 Hospit a .3.709070 l .8 2020-09-24 2020-09-24 Travel 1.2.840.1 1.2.860.417 0594 575444 Methodi 00:00:00 00:00:[address] 3.430.2.7 0.2.7.3.698 Ho spita .3.415084 084.8 l .8 2020-09-16 2020-09-16 Office Lavonne, 1.2.840.1 [id number] 01855 09185 Methodi 09:38:18 11:07:39 Visit Shant 92270.1.[address] Sage 3.430.2.7 Hospit a .3.670263 l .8 2020-09-16 2020-09-16 Travel 1.2.840.1 1.2.497.891 3897 124475 Methodi 00:00:00 00:00:[address] 3.430.2.7 0.2.7.3.698 Ho spita .3.726092 084.8 l .8 2020-09-11 2020-09-11 Orders Jacqueline, 1.2.840.1 [id number] 92686 Methodi 00:00:00 00:00:00 Only Jamarcus Case 92204.1.[address] 3.430.2.7 Hospit a .3.899027 l .8 2020-09-11 2020-09-11 Orders Micha, 1.2.840.1 444225924 23699 34496 Methodi 00:00:00 00:00:00 Only Cleo 43133.1.[address] 3.430.2.7 Hospit a .3.634040 l .8 2020-09-10 2020-09-10 Office Jacqueline, 1.2.840.1 881640161 18750 Methodi 09:55:35 10:20:46 Visit Jamarcus Case 52163.1.[address] 3.430.2.7 Hospit a .3.854271 l .8 2020-09-10 2020-09-10 Orders Jacqueline, 1.2.840.1 [id number] 25021 Methodi 00:00:00 00:00:00 Only Jamarcus Case 18989.1.[address] 3.430.2.7 Hospit a .3.091688 l .8 2020-09-10 2020-09-10 Travel 1.2.840.1 1.2.781.203 9674 728211 Methodi 00:00:00 00:00:[address] 3.430.2.7 0.2.7.3.698 Ho spita .3.872207 084.8 l .8 2020-09-06 2020-09-06 [facility] Alhajimalcolm 1.2.840.1 [id number] 21 [id number] Methodi 10:23:29 23:59:00 Encounter Rene 40685.1.[address] Kermit 3.430.2.7 Hospit a .3.581810 l .8 2020-09-06 2020-09-06 [facility] Vale Richy Lau Treviño 1.2.840 .1 [id number] Methodi 10:23:18 23:59:00 Encounter Rene Steele 80611.1.[address] 3.430.2.7 Hospit a .3.659167 l .8 2020-09-05 2020-09-05 Travel 1.2.840.1 1.2.554.373 7685 006391 Methodi 00:00:00 00:00:[address] 3.430.2.7 0.2.7.3.698 Ho spita .3.540294 084.8 l .8 2020-09-03 2020-09-03 Travel 1.2.840.1 1.2.549.746 0297 758405 Methodi 00:00:00 00:00:[address] 3.430.2.7 0.2.7.3.698 Ho spita .3.117104 084.8 l .8 2020-09-02 2020-09-02 [facility], 1.2.840.1 [id number] 21 [id number] Methodi 00:00:00 00:00:[address] 3.430.2.7 Hospit a .3.773680 l .8 2020-08-30 2020-08-30 Travel 1.2.840.1 1.2.121.762 0988 120059 Methodi 00:00:00 00:00:[address] 3.430.2.7 0.2.7.3.698 Ho spita .3.118362 084.8 l .8 2020-08-28 2020-08-28 Orders Muse, 1.2.840.1 159023566 36181 Methodi 00:00:00 00:00:00 Only Cleo 14453.1.[address] 3.430.2.7 Hospit a .3.319953 l .8 2020-08-28 2020-08-28 Orders Muse, 1.2.840.1 973848664 20025 Methodi 00:00:00 00:00:00 Only Cleo 21589.1.[address] 3.430.2.7 Hospit a .3.763045 l .8 2020-08-22 2020-08-22 Office She Vazquezmalcolm Chris 1.2.840.1 104 078522 4157383165 Methodi 12:30:13 12:45:13 Visit Reynaldo Bah 32795.1.[address] 3.430.2.7 Hospit a .3.066272 l .8 2020-08-22 2020-08-22 Office Jacqueline 1.2.840.1 [id number] 77283 Methodi 10:47:44 11:02:44 Visit Jamarcus Case 00311.1.[address] 3.430.2.7 Hospit a .3.238680 l .8 2020-08-22 2020-08-22 Travel 1.2.840.1 1.2.703.172 3930 158314 Methodi 00:00:00 00:00:[address] 3.430.2.7 0.2.7.3.698 Ho spita .3.471696 084.8 l .8 2020-08-13 2020-08-13 Refill Ping, 1.2.840.1 712078751 478437 1797 Methodi 00:00:00 00:00:[address] 3.430.2.7 Hospit a .3.292653 l .8 2020-08-12 2020-08-12 Travel 1.2.840.1 1.2.128.017 6458 238133 Methodi 00:00:00 00:00:[address] 3.430.2.7 0.2.7.3.698 Ho spita .3.484407 084.8 l .8 2020-08-09 2020-08-09 Refill Jacqueline, 1.2.840.1 [id number] 22194 82768 Methodi 00:00:00 00:00:00 Jamarcus Case 25405.1.[address] 3.430.2.7 Hospit a .3.181307 l .8 2020-08-08 2020-08-08 Refill Taylor, 1.2.840.1 [id number] 2099 511493 Methodi 00:00:00 00:00:00 Luis Miguel Perez 74061.1.1 712 s t 3.430.2.7 Hospit a .3.857953 l .8 2020-08-05 2020-08-05 Outpatient [facility] 385239C -20 Univers 13:00:00 13:00:00 981131 ity [facility] 2020-08-03 2020-08-03 Nurse Therapy, Adc Covid Infusion [facility] 1.2.840.114 [id number] Univers 07:56:47 08:26:47 Visit Richy Coy[facility]13.10 [facility] [id number] 102093 [place] 2020-08-03 2020-08-03 Outpatient R [facility] [id number] 711 Univers 08:00:00 08:00:00 ity of [facility] 2020-08-01 2020-08-01 Orders Ping, 1.2.840.1 [id number] 822088 7933 Methodi 00:00:00 00:00:00 Only Roland 05185.1.[address] 3.430.2.7 Hospit a .3.524867 l .8 2020-08-01 2020-08-01 Telephone Raheel, 1.2.840.1 [id number] 2100 651669 Methodi 00:00:00 00:00:[address]21.1.[address] 3.430.2.7 Hospit a .3.577671 l .8 2020-08-01 2020-08-01 Orders Doctor CALL 1.2.840.114 [id number] Univers 00:00:00 00:00:00 Only Unassigned, SERENA 350.1.13.10 ity of [place] [facility] 4.2.7.2.686 Aakash as [phone] [address] 2020-07-29 2020-07-29 Telephone Can, 1.2.840.1 [id number] 21 [id number] Methodi 00:00:00 00:00:[address] 3.430.2.7 Hospit a .3.371153 l .8 2020-07-03 2020-07-03 Outpatient TAYLOR, [facility] 08703 58908 [place] 00:00:00 00:00:00 SHEIK [address] 2020-07-03 2020-07-03 Outpatient SAHARIA, [facility] [id number] 6424 [place] 00:00:00 00:00:00 JERMAIN [address] 2020-07-03 2020-07-03 Outpatient TAYLOR, [facility] 04145 56951 [place] 00:00:00 00:00:00 SHEIK [address] 2020-07-032020-07-03 Outpatient TAYLOR, [facility] 21819 23734 [place] 00:00:00 00:00:00 LUIS MIGUEL [address] 2020-04-26 2020-04-26 Outpatient ABDELRAHIM, [facility] 989 [id number] [place] 00:00:00 00:00:00 TONIE [address] 2020-04-17 2020-04-17 Outpatient ABDELRAHIM, [facility] 985 [id number] [place] 00:00:00 00:00:[address] TONIE [address] 2020-04-09 2020-04-09 Outpatient ABDELRAHIM, [facility] [id number] [place] 00:00:00 00:00:00 TONIE [address] 2020-04-09 2020-04-09 Outpatient ABDELRAHIM, [facility] 741 [id number] [place] 00:00:00 00:00:00 TONIE [address] 2020-04-09 2020-04-09 Outpatient ABDELRAHIM, [facility] 787 [id number] [place] 00:00:00 00:00:00 TONIE [address] 2020-04-04 2020-04-04 Outpatient ANKOMA-SEY, [facility] [id number] [place] 00:00:00 00:00:00 REYNALDO [address] 2020-04-04 2020-04-04 Outpatient [facility] [id number] [place] 00:00:00 00:00:[address] 2020-03-07 2020-03-07 Outpatient MALONE, [facility] [id number] [place] 00:00:00 00:00:00 ALVARO [address] 2020-02-27 2020-02-27 Outpatient TAYLOR, [facility] [id number] [place] 00:00:00 00:00:00 LUIS MIGUEL [address] 2020-02-27 2020-02-27 Outpatient FRANCO DORI [facility] [id number] [place] 00:00:00 00:00:[address] 2020-02-27 2020-02-27 Outpatient [facility] [id number] [place] 00:00:00 00:00:[address] 2020-02-27 2020-02-27 Outpatient VALE, RICHY [facility] [id number] [place] 00:00:00 00:00:[address] 2020-02-27 2020-02-27 Outpatient DORI GAMEZ [facility] [id number] [place] 00:00:00 00:00:[address] 2020-02-22 2020-02-22 Outpatient SHADE, [facility] [id number] [place] 00:00:00 00:00:00 REYNALDO [address] 2020-02-22 2020-02-22 Outpatient EGWIM, [facility] [id number] [place] 00:00:00 00:00:00 CHUYITA [address] 2020-02-22 2020-02-22 Outpatient KIRA, [facility] [id number] [place] 00:00:00 00:00:00 ALVARO [address] 2020-02-22 2020-02-22 Outpatient SHADE, [facility] [id number] [place] 00:00:00 00:00:00 REYNALDO [address] 2019-12-29 2019-12-29 Outpatient [facility] [id number] [place] 00:00:00 00:00:[address] 2019-09-27 2019-09-27 Outpatient [facility] [id number] [place] 00:00:00 00:00:[address] 2019-09-26 2019-09-26 Outpatient [facility] [id number] [place] 00:00:00 00:00:[address] 2019-09-26 2019-09-26 Outpatient [facility] [id number] [place] 00:00:00 00:00:[address] 2019-09-26 2019-09-26 Outpatient [facility] [id number] [place] 00:00:00 00:00:[address] 2019-09-26 2019-09-26 Outpatient VALE, RICHY [facility] [id number] [place] 00:00:00 00:00:[address] 2019-09-26 2019-09-26 Outpatient VALE, RICHY [facility] [id number] [place] 00:00:00 00:00:[address] 2019-08-15 2019-08-15 Outpatient TAYLOR, [facility] [id number] [place] 00:00:00 00:00:00 RAFIK 9[address] [facility] 2019-08-15 2019-08-15 Outpatient TAYLOR, [facility] [id number] [place] 00:00:00 00:00:00 RAFIK 949 [facility] 2019-08-15 2019-08-15 Outpatient TAYLOR, [facility] [id number] [place] 00:00:00 00:00:00 RAFIK [address] [facility] 2019-08-15 2019-08-15 Outpatient TAYLOR, [facility] [id number] [place] 00:00:00 00:00:00 RAFIK 931 [facility] 2019-08-15 2019-08-15 Outpatient TAYLOR, [facility] [id number] [place] 00:00:00 00:00:00 RAFIK 930 [facility] 2019-08-15 2019-08-15 Outpatient TAYLOR, [facility] [id number] [place] 00:00:00 00:00:00 RAFIK 9[address] [facility] 2019-08-15 2019-08-15 Outpatient TAYLOR, [facility] [id number] [place] 00:00:00 00:00:00 RAFIK [address] Results Test Description Test Time Test Comments Results Result Comments Source Hepatic function panel 2021-12-02 19:13:00 Test Item Value Reference Range Interpretation Comme nts Protein (test code = 7.3 g/dL 6.1-8.1 2885-2) Albumin, S (test code = 4.2 g/dL 3.6-5.1 1751-7) Globulin, total (test code See_Comment [Automated message] = 97910-7) The system ic h generated this result transmitted ref erence range: 1.9 - 3. 7 g/dL (calc). The ref erence range was not u sed to interpret this result as normal/abnor mal. Albumin/globulin ratio See_Comment [Aut omated message] (test code = 1759-0) The [facility] tem which generated this result transmitted ref erence range: 1.0 - 2. 5 (calc). The ref erence range was not u sed to interpret this result as normal/abnor mal. Total bilirubin (test code 0.6 mg/dL 0.2-1.2 = 1974-) Bilirubin direct (test 0.2 mg/dL See_Comment [Aut omated message] code = 1967-12) The system [facility] generated this result transmitted ref erence range: < OR = 0 .2. The reference range was not used to int erpret this result as normal/abnormal . Bilirubin, indirect (test See_Comment [ Automated message] code = 1970-06) The system [facility] generated this result transmitted ref erence range: 0.2 - 1. 2 mg/dL (calc). The ref erence range was not u sed to interpret this result as normal/abnor mal. Alkaline phosphatase (test 126 U/L 35-144 code = 6768-6) AST (test code = 1920-8) 61 U/L 10-35 H ALT (test code = 1742-6) 68 U/L 9-46 H JOSEFA (test code = JOSEFA) FASTING:YES FASTING: YES RAC (test code = RAC) Performing Organization Information: Site ID: A [facility]: [facility] Address: [address] [place] [address] Director: Fran Guajardo Lab Interpretation (test Abnormal code = 30131-3) [facility]2022-06-14 19:13:00 Test Item Value Reference Range Interpretation Comments Magnesium (test code 2.0 mg/dL 1.5-2.5 = 91019-6) JOSEFA (test code = JOSEFA) FASTING:YES FASTING: YES RAC (test code = RAC) Performing Organization Information: Site ID: [facility] Name: [facility] Address: [address] [place] [address] Director: Fran Guajardo [facility] with platelet and [id number] 19:13:00 Test Item Value Reference Range Interpretation Comments WBC (test code = See_Comment [Automated 8290-2) message] The system which generated this result transmitted reference range : 3.8 - 10.8 Thousand/uL. Th e reference range was not used to interpret this result as normal/abnormal . RBC (test code = See_Comment [Automated 359-8) message] The system which generated this result transmitted reference range : 4.20 - 5.80 Million/uL. The reference range was not used to interpret this result as normal/abnormal . HGB (test code = 16.5 g/dL 13.2-17.1 718-7) HCT (test code = 47.9 % 38.5-50 4544-3) MCV (test code = 96.4 fL 80-100 787-2) MCH (test code = 33.2 pg 27-33 H 785-6) MCHC (test code = 34.4 g/dL 32-36 786-4) RDW (test code = 12.8 % 11-15 788-0) Platelet count (test See_Comment [Autom ated code = 777-3) message] The system which generated this result transmitted reference range : 140 - 400 Thousand/uL. Th e reference range was not used to interpret this result as normal/abnormal . MPV (test code = 9.3 fL 7.5-12.5 776-5) Neutrophils, See_Comment [Automated absolute [...] this result as normal/abnormal . Neutrophils (test 68.7 % code = 770-8) Lymphocytes (test 20.4 % code = 736-9) Monocytes (test code 8.0 % = 5905-5) Eosinophils (test 2.4 % code = 713-8) Basophils + RC (test 0.5 % code = 706-2) JOSEFA (test code = FASTING:YES JOSEFA) FASTING: YES RAC (test code = Performing RAC) Organization Information: Site ID: EDUAR [facility] Address: [address] [place] [phone] Director: Fran Guajardo Lab Interpretation Abnormal (test code = 42458-9) [facility] [id number] 19:13:00 Test Item Value Reference Range Interpretation Comments INR (test code = Reference R marlo 6301-6) 0.9-1.1Moderate -i ntensity Warfar in Therapy 2.0-3.0Higher-i nt ensity Warfarin Therapy 3.0-4.0 Prothrombin time See_Comment For additio nal (test code = information, 5902-2) please refer tohttp://educat io n.Reliance Globalcomdiagnost Smadex/faq/FAQ10 4( This link is being provided for informational/e du cational purpos es only.) [Automat ed message] The system which generated this result transmitted reference range : 9.0 - 11.5 sec. The reference range was not used to interpr et this result as normal/abnormal . JOSEFA (test code = FASTING:YES JOSEFA) FASTING: YES RAC (test code = Performing RAC) Organization Information: Site ID: [facility] Name: [facility] Address: [address] [place] [phone] Director: Fran Guajardo [facility] Tacrolimus level, [id number] 19:13:00 Test Item Value Reference Range Interpretation Comments Tacrolimus, mcg/L No definitive highly therapeutic or toxic sensitive, ranges have LC/MS/MS beenestablished . (test code = [place] [address]8916-2) levels are influencedby ty pe of transplant, pat ient response, time post-transplant , co-administrati on of other drugs, an d drug formulation. Th e following troug h range is a suggested guideline: 5.0- 20.0 mcg/L. This macrina t was developed and i ts analytical perf ormance characteristics have been determined by [employer] . It has not been cl eared or approved by theA. This assay has been validated pursu ant to the CLIA regula tions and is used for clinical purpos es. JOSEFA (test FASTING:YES code = JOSEFA) FASTING: YES RAC (test Performing code = RAC) Organization Information: Site ID: IG [facility] Address: [address] [place] [address] [place] [address] Director: Dr. Fran Guajardo [facility] METABOLIC PANEL, [id number] 19:13:00 Test Item Value Reference Interpretation Comments Range Glucose (test code 104 mg/dL 65-99 H Fasting reference = 2345-7) interval For so meone without known diabetes, a glu cose valuebetween 10 0 and 125 mg/dL is consistent withprediabetes and should be confi rmed with afollow-up test. BUN (test code = 22 mg/dL 01-12 3094-0) Creatinine (test 1.28 mg/dL 0.7-1.33 For patient s >49 code = 2160-0) years of age, the reference limit for Creatinine is approximately 1 3% higher for peopleidentifie d as -Leonor n. EGFR Non-Afr. See_Comment [Automated me ssage] Barbadian (test code The syst em which = 1975) generated this result transmit rodrigo reference range : > OR = 60 mL/min/1.73m2. The reference range was not used to interpret this result as normal/abnormal . EGFR See_Comment [Automated mes dhruv] Barbadian (test code The syst em which = 3185) generated this result transmit rodrigo reference range : > OR = 60 mL/min/1.73m2. The reference range was not used to interpret this result as normal/abnormal . BUN/creatinine NOT APPLICABLE See_Comment [Automated message] ratio (test code = The syste m which 8467-3) generated this result transmit rodrigo reference range : 6 - 22 (calc). The reference range was not used to interpret this result as normal/abnormal . Sodium (test code = 139 mmol/L 917-695 9944-2) Potassium (test 4.8 mmol/L 3.4-4.8 code = 2823-3) Chloride (test code 107 mmol/L 98-110 = 2075-0) CO2 (test code = 20 mmol/L 20-32 2027-9) Calcium (test code 9.8 mg/dL 8.6-10.3 = 72417-5) JOSEFA (test code = FASTING:YES JOSEFA) FASTING: YES RAC (test code = Performing RAC) Organization Information: Site ID: RGA [facility] Address: [address] [place] [address] Director: Fran Guajardo Lab Interpretation Abnormal (test code = 26203-9) [facility], [id number] 19:13:00 Test Item Value Reference Interpretation Comments Range Phosphatidylethan 600 ng/mL H Reporting Limit: 20 ng/mL ol, blood (test Synonym(s): Phosphatidyl code = 97480-6) Ethanol; PethPhosphatidy lethanol (PEth) is an ethanol-derived phospholipi [...] and i ts performance characteristics determined by [facility]. It has not been cleared or approved by the US Food and Drug Administration. JOSEFA (test code = FASTING:YES JOSEFA) FASTING: YES RAC (test code = Performing RAC) Organization Information: Site ID: [id number] Name: [facility] Labs Address: [address] [place] [address] Director: Fran Brar PH.D, F-ABFT Lab Abnormal Interpretation (test code = 38406-0) [facility] [id number] 01:17:00 Test Item Value Reference Interpretation Comments Range Glucose (test code 110 mg/dL 65-99 H Fasting reference = 2345-7) interval For so meone without known diabetes, a glu cose valuebetween 10 0 and 125 mg/dL is consistent withprediabetes and should be confi rmed with afollow-up test. BUN (test code = 19 mg/dL 7 3094-0) Creatinine (test 2.12 mg/dL 0.70-1.33 H For patient s >49 code = 2160-0) years of age, the reference limit for Creatinine is approximately 1 3% higher for peopleidentifie d as -Leonor n. EGFR Non-Afr. See_Comment L [Automated me ssage] Barbadian (test code The syst em which = 0305) generated this result transmit rodrigo reference range : > OR = 60 mL/min/1.73m2. The reference range was not used to interpret this result as normal/abnormal . EGFR See_Comment L [Automated mes dhruv] Barbadian (test code The syst em which = 2124) generated this result transmit rodrigo reference range : > OR = 60 mL/min/1.73m2. The reference range was not used to interpret this result as normal/abnormal . BUN/creatinine See_Comment [Automated m essage] ratio (test code = The syste m which 3097-3) generated this result transmit rodrigo reference range : 6 - 22 (calc). The reference range was not used to interpret this result as normal/abnormal . Sodium (test code = 138 mmol/L 262-548 4176-2) Potassium (test 4.9 mmol/L 3.5-5.3 code = 2823-3) Chloride (test code 106 mmol/L 98-110 = 2075-0) CO2 (test code = 26 mmol/L 20-32 8-9) Calcium (test code 8.8 mg/dL 8.6-10.3 = 46896-7) Protein (test code 6.4 g/dL 6.1-8.1 = 2885-2) Albumin, S (test 3.8 g/dL 3.6-5.1 code = 1751-7) Globulin, total See_Comment [Automated message] (test code = The system EMCASic h 37710-3) generated this result transmit rodrigo reference range : 1.9 - 3.7 g/dL (jose eduardo c). The reference r marlo was not used to interpret this result as normal/abnormal . Albumin/globulin See_Comment [Automated message] ratio (test code = The syste m which 1759-0) generated this result transmit rodrigo reference range : 1.0 - 2.5 (calc). T he reference range was not used to interpret this result as normal/abnormal . Total bilirubin 0.6 mg/dL 0.2-1.2 (test code = 1975-2) Alkaline 134 U/L 35-144 phosphatase (test code = 6768-6) AST (test code = 31 U/L 10-35 1920-8) ALT (test code = 31 U/L 9-46 1742-6) JOSEFA (test code = FASTING:YES JOSEFA) FASTING: YES RAC (test code = Performing RAC) Organization Information: Site ID: RGA [facility] Address: [address] [place] [address] Director: Fran Guajardo Lab Interpretation Abnormal (test code = 68202-6) [facility]2021-10-14 01:17:00 Test Item Value Reference Range Interpretation Comments Magnesium (test code 2.1 mg/dL 1.5-2.5 = 81541-3) JOSEFA (test code = JOSEFA) FASTING:YES FASTING: YES RAC (test code = RAC) Performing Organization Information: Site ID: RGA [facility]: [facility] Address: [address] [place] [address] Director: Fran Guajardo [facility] with platelet and [id number] 01:17:00 Test Item Value Reference Range Interpretation Comments WBC (test code = See_Comment [Automated 2990-2) message] The system which generated this result transmitted reference range : 3.8 - 10.8 Thousand/uL. Th e reference range was not used to interpret this result as normal/abnormal . RBC (test code = See_Comment [Automated 819-8) message] The system which generated this result [...] = Performing RAC) Organization Information: Site ID: EDUAR Name: [facility] Lab Address: [address] [place] [phone] Director: Fran Guajardo Lab Interpretation Abnormal (test code = 83538-5) [facility] [id number] 01:17:00 Test Item Value Reference Range Interpretation Comments INR (test code = Reference R marlo 6301-6) 0.9-1.1Moderate -i ntensity Warfar in Therapy 2.0-3.0Higher-i nt ensity Warfarin Therapy 3.0-4.0 Prothrombin time See_Comment For additio nal (test code = information, 5902-2) please refer tohttp://educat io n.Reliance Globalcomdiagnost Smadex/faq/FAQ10 4( This link is being provided for informational/e du cational purpos es only.) [Automat ed message] The system which generated this result transmitted reference range : 9.0 - 11.5 sec. The reference range was not used to interpr et this result as normal/abnormal . JOSEFA (test code = FASTING:YES JOSEFA) FASTING: YES RAC (test code = Performing RAC) Organization Information: Site ID: EDUAR Name: [facility] Address: [address] [place] [address] Director: Fran Guajardo [facility] Tacrolimus level, [id number] 01:17:00 Test Item Value Reference Range Interpretation Comments Tacrolimus, mcg/L No definitive highly therapeutic or toxic sensitive, ranges have LC/MS/MS beenestablished . (test code = Optimal blood d rug 41556-9) levels are influencedby ty pe of transplant, pat ient response, time post-transplant , co-administrati on of other drugs, an d drug formulation. Th e following troug h range is a suggested guideline: 5.0- 20.0 mcg/L. This macrina t was developed and i ts analytical perf ormance characteristics have been determined by [employer]. It has not been cl eared or approved by theA. This assay has been validated pursu ant to the CLIA regula tions and is used for clinical purpos es. JOSEFA (test FASTING:YES code = JOSEFA) FASTING: YES RAC (test Performing code = RAC) Organization Information: Site ID: IG [facility]: [facility] Address: [address] [facility] [place] [address] Director: Dr. Fran Guajardo [facility], [id number] 22:55:00 Test Item Value Reference Interpretation Comments Range Phosphatidylethan 970 ng/mL H Reporting Limit: 20 ng/mL ol, blood (test Synonym(s): Phosphatidyl code = 63887-9) Ethanol; PET H; PethPhosphatidy lethanol (PEth) is [...] and i ts performance characteristics determined by [facility]. It has not been cleared or approved by the US Food and Drug Administration. JOSEFA (test code = FASTING:YES JOSEFA) FASTING: YES RAC (test code = Performing RAC) Organization Information: Site ID: [id number] Name: [facility] Labs Address: [address] [facility] [place] [address] Director: Fran Brar PH.D, F-ABFT Lab Abnormal Interpretation (test code = 84969-7) [facility]
[2022-03-09] MEDS ORDERED: LIDOCAINE 1% MPF 2 ML AMPULE ONE (13:33)
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
--- NOTE | 2022-03-09 14:40 | ER ---
Nurse's Notes [facility] Name: Javier Saravia Age: 61 yrs Sex: Male : 1960 Arrival Date: 03/09/2022 Time: 12:40 Bed Treatment Private MD: Ernie Eric C Diagnosis: Laceration without foreign body, right ankle, initial encounter Presentation: 03/09 13:11 Chief complaint: Patient states: Laceration to medial aspect of right ankle. jl7 Coronavirus screen: At this time, the client does not indicate any symptoms associated with coronavirus-19. Ebola Screen: No symptoms or risks identified at this time. Initial Sepsis Screen: Does the patient meet any 2 criteria? No. Patient's initial sepsis screen is negative. Does the patient have a suspected source of infection? No. Patient's initial sepsis screen is negative. Risk Assessment: Do you want to hurt yourself or someone else? Patient reports no desire to harm self or others. Onset of symptoms was March 09, 2022. 13:11 Method Of Arrival: Ambulatory [facility] 13:11 Acuity: RD 4 jl7 Triage Assessment: 13:12 General: Appears in no apparent distress. uncomfortable, Behavior is calm, cooperative, jl7 appropriate for age. Pain: Complains of pain in right ankle Pain currently is 8 out of 10 on a pain scale. Historical: - Allergies: 13:12 No Known Allergies; jl7 - Home Meds: 14:53 amlodipine 5 mg tab 1 tab once daily [Active]; CellCept 500 mg Oral tab 1 tabs 2 times ph per day [Active]; gabapentin 300 mg Oral cap 1 cap in the evening [Active]; losartan 50 mg Oral tab 1 tab once daily [Active]; magnesium oxide 400 mg (241.3 mg magnesium) Oral tab daily [Active]; Otezla 30 mg Oral tab 1 tab 2 times per day [Active]; rosuvastatin 20 mg Oral cpSP 1 cap once daily [Active]; tacrolimus 1 mg Oral Tb24 2 tabs once daily [Active]; Vitamin D Oral 17015 unit [Active]; - PMHx: 13:12 Cirrhosis; Hypertension; psoriasis; jl7 - PSHx: 13:12 liver transplant; jl7 - Immunization history:: Last tetanus immunization: > 10 years ago. - Social history:: Smoking status: Patient denies any tobacco usage or history of. Screenin:53 Abuse screen: Denies threats or abuse. Denies injuries from another. Nutritional ph screening: No deficits noted. Tuberculosis screening: No symptoms or risk factors identified. Fall Risk None identified. Vital Signs: 13:11 BP 140 / 79; Pulse 78; Resp 17; Temp 97.9; Pulse Ox 96% on R/A; Weight 111.13 kg; 7 Height 5 ft. 8 in. (172.72 cm); Pain 8/10; 13:11 Body Mass Index 37.25 (111.13 kg, 172.72 cm) 7 ED Course: 12:40 Patient arrived in ED. mr 12:40 Ernie Eric MD is Private Physician. mr 12:43 Renea Esparza FNP is [facility] 12:43 Esperanza Crooks MD is Attending Physician. [facility] 13:12 Triage completed. [facility] 13:12 Arm band placed on right wrist. [facility] 13:19 Amna Treviño RN is Primary Nurse. [facility] 14:39 Ernie Eric MD is Referral Physician. [facility] 14:52 Wound care: to laceration located on medial aspect of right calf was dressed with 4X4s, ph Kerlix, Patient tolerated well. 14:53 Patient has correct armband on for positive identification. Call light in reach. Side ph rails up X 1. 14:55 Assist provider with laceration repair on medial aspect of right calf and right ankle ph that was between 2.6 to 7.5 cm using sutures. Set up tray. Performed by Renea MIRANDA Dressed with 4X4s, Kerlix, Patient tolerated well. Patient did not have IV access during this emergency room visit. Administered Medications: 14:30 Drug: Lidocaine (1 %) 20 ml Volume: 20 ml; Route: Infiltration; ph 14:52 Follow up: Response: No adverse reaction ph Medication: 14:53 VIS not applicable for this client. ph Outcome: 14:39 Discharge ordered by . [facility] 14:55 Discharged to home ambulatory, with significant other. ph 14:55 Condition: good 14:55 Discharge instructions given to patient, significant other, Instructed on discharge instructions, follow up and referral plans. medication usage, wound care, Demonstrated understanding of instructions, follow-up care, medications, wound care, Prescriptions given X 1. 14:56 Patient left the ED. ph Signatures: Lainey Benitez Patricia RN RN ph Amna Treviño RN RN jl7 Renea Esparza FNP [employer] jh7
[2022-03-10 17:48] VITALS: BP 140/79; TEMP 97.9; O2SAT 96
== END 2022-03-09 14:56 | disposition home or self-care (01) ==
LOC: ER 12:38
PROC: 0JQN0ZZ Repair Right Lower Leg Subcutaneous Tissue and Fascia, Open Approach (ICD-10-PCS; principal; 2022-03-09)
DX: S91.011A Laceration without foreign body, right ankle, initial encounter (principal)
CPT/HCPCS: 99284

== ENCOUNTER 2022-03-20 03:03 | Emergency (ER) | payer OTHER ==
--- OUTSIDE RECORDS SUMMARY | 2022-03-20 03:08 | XMS REPORT | Continuity of Care Document ---
:[address] [facility] t Address [address] [place] [address] Care Team Providers Name Role Phone Eric Magdaleno Rico Primary Care Physician Taylor CORONA, Luis Miguel Perez Attending Clinician Natalia Domingo LMSW Attending Clinician Unavailable Olvin CORONA, Reynaldo Attending Clinician Jacqueline REYES, Jamarcus Case Attending Clinician Roland Feng RN Attending Clinician Unavailable Therapy, [facility] Covid Infusion Attending Clinician Unavailable Av Miguel MD Attending Clinician VA MIGUEL Attending Clinician Unavailable Doctor Unassigned, Omar Attending Clinician Unavailable Kerline Bryant LCSW Attending Clinician Unavailable Nat Sanchez Attending Clinician Unavailable Henny Lozoya RN Attending Clinician Unavailable Polina Salas MA Attending Clinician Unavailable Yuli Pickering Attending Clinician Unavailable Jocelyn Pabon LCSW Attending Clinician Unavailable Lavonne CORONA, Shant Cazares Attending Clinician Cleo Muse MA Attending Clinician Unavailable Rene Steele Attending Clinician Richy Almaguer MD Attending Clinician [phone] Can, Martia Attending Clinician Unavailable Therapy, [facility] Covid Infusion Attending Clinician Unavailable Richy Coyne MD Attending Clinician JERMAIN DOBBS Attending Clinician Unavailable TONIE TALLEY Attending Clinician Unavailable ALVARO MALONE Attending Clinician Unavailable DORI GAMEZ Attending Clinician Unavailable CHUYITA COLLINS Attending Clinician Unavailable Payers Payer Name Policy Type Policy Number Effective Date Expiration Date S maxime AEGuidoNA MEDICARE OUT [id number] 2019 OF NETWORK 00:00:00 Problems Condition Condition [...] spita lower lower 00 l extremity extremity [id number] Disease Active Methodi 9-29 st 00:00: Hospita 00 l Awaiting Awaiting [...] transplant transplant st ed ed Hospita l longterm longterm Disease Active Met 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 current st [...] INGREDI 06-25 ity of DERIVED 00:00: [facility] Skylas Propi Active Unknown - Uni vers h ty to See comments 06-25 ity of Derived adverse 00:00: [place] reaction 00 Medical s [place] Ayshafis Propensi Active Method i h ty to 06-25 st Derived adverse 00:00: Hospita reaction 00 l s to drug Codeine Propensi Active Nausea Only 2015-06 Me thodi ty to 06-23 st adverse 00:00: Hospita reaction 00 l s to drug CODEINE DRUG Active NAUSEA ONLY Univ ers INGREDI 4-20 ity of 00:00: [place] [facility] [place] Codeine Drug Active Nausea Univers Intolera and/or 4-20 ity of nce Vomiting 00:00: [facility] NO KNOWN Drug Active Univers ALLERGIE Class ity of [facility] Social History Social Habit Start Date Stop Date Quantity Comments Source History SDOH [facility] Alcohol Frequency Hospita l History SDOH [facility] Alcohol Std Hospital Drinks History SDOH [facility] Alcohol Binge Hospital Alcohol intake 2021-08-21 2021-08-21 Current [facility] 00:00:00 00:00:00 non-drinker of Hospital alcohol (finding) Alcohol Comment 2018-08-23 2018-08-23 previously [facility] 00:00:00 00:00:00 alcoholic, quit Hospital drinking 03/2008 Tobacco use and 2017-10-26 2017-10-26 Smokeless tobacco [facility] exposure 00:00:00 00:00:00 non-user Hospital Sex Assigned At [birth year] [facility] 00:00:00 00:00:00 Hospital Smoking Status Start Date Stop Date Source Tobacco smoking consumption [facility] Never smoked tobacco [facility] H [facility]spital Medications Ordered Filled Start Stop Current Ordering Indication Dosage Frequency Signature Comments Components Source Medication Medication Date Date Medication? Clinician (SIG) Name Name tacrolimus Yes [id number] Take 2 Methodi (PROGRAF) 1 3-[address] MG capsule 00:00: (2 mg Hospit a 00 total) by l mouth every morning AND 1 capsule (1 mg total) every evening. tacrolimus Yes [id number] Take 2 Methodi (PROGRAF) 1 3-[address] MG capsule 00:00: (2 mg Hospit a 00 total) by l mouth every morning AND 1 capsule (1 mg total) every evening. ergocalcife 2022- No [id number] Q7D Take 1 M ethodi rol 07-[address] (VITAMIN 00:00: 05:59 (50,000 Hospi ta D2) 50,000 00 :00 Units l unit total) by capsule mouth once a week. ergocalcife 2022- No [id number] Q7D Take 1 M ethodi rol 07-28 [...] A l tablet DAY acetaminoph 2020-06- [place] [id number] chronic M ethodi en-codeine 08-[address] (TYLENOL 00:00: 05:59 ONE TABLET Ho spita WITH 00 :00 BY MOUTH l CODEINE #3) THREE 300-30 mg TIMES A per tablet DAY FOR 10 DAYS acetaminoph 2020-06- [place] [id number] chronic M ethodi en-codeine 08-[address] (TYLENOL 00:00: 05:59 ONE TABLET Ho spita WITH 00 :00 BY MOUTH l CODEINE #3) THREE 300-30 mg TIMES A per tablet DAY FOR 10 DAYS acetaminoph 2020-06- [place] [id number] chronic M ethodi en-codeine 08-[address] (TYLENOL 00:00: 05:59 ONE TABLET Ho spita WITH 00 :00 BY MOUTH l CODEINE #3) THREE 300-30 mg TIMES A per tablet DAY FOR 10 DAYS casirivimab 2020-06- No [id number] 1200mg 1,200 mg, Univers 600 08-08 IV ity of mg-imdevima 20:00: 15:00 Infusion, [place] b 600 mg 00 :00 ONCE, Medical (REGEN-COV Administer Bra [facility] ([facility])) 1200 over 20 mg in 60 [...] temperatur e. &nbs p;
tacrolimus 2023- No [id number] 2mg Q.5D Take 2 Methodi (PROGRAF) 1 03-[address] MG capsule 00:00: 04:59 (2 mg Hospi ta 00 :00 total) by l mouth 2 (two) times a day. tacrolimus 2021- No [id number] 2mg Q.5D Take 2 Methodi (PROGRAF) 1 03-18- capsules st MG capsule 00:00: 00:00 (2 mg Hospi ta 00 :00 total) by l mouth 2 (two) times a day. tacrolimus 2021- No [id number] 2mg Q.5D Take 2 Methodi (PROGRAF) 1 03-[address] MG capsule 00:00: 00:00 (2 mg Hospi ta 00 :00 total) by l mouth 2 (two) times a day. tacrolimus No [id number] 2mg Q.5D Take 2 Methodi (PROGRAF) 1 03-[address] MG capsule 00:00: 00:00 (2 mg Hospi ta 00 :00 total) by l mouth 2 (two) times a day. tacrolimus No [id number] 2mg Q.5D Take 2 Methodi (PROGRAF) 1 03-[address] MG capsule 00:00: 00:00 (2 mg Hospi ta 00 :00 total) by l mouth 2 (two) times a day. mycophenola Yes [id number] 500mg Q.5D Take 1 Methodi te 9-[address] (CELLCEPT) 00:00: (500 mg [facility] 500 mg 00 total) by l tablet mouth 2 (two) times a day. mycophenola Yes [id number] 500mg Q.5D Take 1 Methodi te 9-[address] (CELLCEPT) 00:00: (500 mg [facility] 500 mg 00 total) by l tablet mouth 2 (two) times a day. mycophenola 2021- No [id number] 500mg Q.5D Take 1 Methodi te 9- [address] (CELLCEPT) 00:00: 04:59 (500 mg Hos jose francisco 500 mg 00 :00 total) by l tablet mouth 2 (two) times a day. acetaminoph No Tylenol-Co Methodi en-codeine 12-03 deine #3 st (TYLENOL 13:04: 00:00 300 mg-30 Hos jose francisco WITH 50 :00 mg tablet l CODEINE #3) Take 1 300-30 mg tablet 3 per tablet times a day by oral route [place] 10 [place] [id number] chronic M ethodi en-codeine 12-03- pain. st (TYLENOL 00:00: 00:00 Tylenol-Co Ho spita WITH 00 :00 deine #3 l CODEINE #3) 300 mg-30 300-30 mg mg tablet per tablet Take 1 tablet 3 times a day by oral route for 10 days. acetaminoph 2020- [place] [id number] chronic M ethodi en-codeine 12-03- pain. st (TYLENOL 00:00: 00:00 Tylenol-Co Ho spita WITH 00 :00 deine #3 l CODEINE #3) 300 mg-30 300-30 mg mg tablet per tablet Take 1 tablet 3 times a day by oral route [place] 10 [place] [id number] chronic M ethodi en-codeine -15 - pain. st (TYLENOL 00:00: 00:00 Tylenol-Co Ho [...] 400mg Q.5D Take 1 Meth sebas oxide 6-[address] (MAG-OX) 00:00: 04:59 (400 mg Hospi ta 400 mg 00 :00 total) by l (241.3 mg mouth 2 magnesium) (two) tablet times a day. gabapentin 2021- No 300mg Q.[id number] Take 1 Methodi (NEURONTIN) 09-10-[id number] 300 mg 00:00: 04:59 3D (300 mg Hospita capsule 00 :00 total) by l mouth 3 (three) times a day. gabapentin 2021- No 300mg Q.[id number] Take 1 Methodi (NEURONTIN) 09-10- [id number] capsule st 300 mg 00:00: :59 3D (300 mg Hospita capsule 00 :00 total) by l mouth 3 (three) times a day. gabapentin 2021- No 300mg Q.[id number] Take 1 Methodi (NEURONTIN) 09-10- [id number] capsule st 300 mg 00:00: 04:59 3D (300 mg Hospita capsule 00 :00 total) by l mouth 3 (three) times a day. gabapentin 2020- No 300mg Q.[id number] Take 1 Methodi (NEURONTIN) 09-10- [id number] capsule st 300 mg 00:00: 00:00 3D (300 mg Hospita capsule 00 :00 total) by l mouth 3 (three) times a day. rosuvastati Yes [id number] 20mg QD Take 1 Methodi n (CRESTOR) 3-04 tablet (20 st 20 mg 00:00: mg total) Hospita tablet 00 by mouth l every evening. rosuvastati Yes [id number] 20mg QD Take 1 Methodi n (CRESTOR) 3-04 tablet (20 st 20 mg 00:00: mg total) Hospita tablet 00 by mouth l every evening. tacrolimus 2021- No [id number] .5mg Q.5D Take 1 Methodi (PROGRAF) 3-04 03-[address] 0.5 MG 00:00: 05:59 (0.5 mg Hospita capsule 00 :00 total) by l mouth 2 (two) times a day. rosuvastati 2021- No [id number] 20mg QD Take 1 Methodi n (CRESTOR) 3- 03-05 tablet (20 s t 20 mg 00:00: 05:59 mg total) Hospit a tablet 00 :00 by mouth l every evening. tacrolimus 2021- No [id number] .5mg Q.5D Take 1 Methodi (PROGRAF) 3- 03-[address] 0.5 MG 00:00: 00:00 (0.5 mg Hospita capsule 00 :00 total) by l mouth 2 (two) times a day. tacrolimus 2021- No [id number] .5mg Q.5D Take 1 Methodi (PROGRAF) 3- [...] 500mg Q.25D Take 1 M ethodi oL 3-04 12-[address] (Robaxin) 00:00: 00:00 (500 mg [facility] 500 MG 00 :00 total) by l tablet mouth 4 (four) times a day for 30 days. methocarbam 2020- No 500mg Q.25D Take 1 M ethodi oL 3-04 12-[address] (Robaxin) 00:00: 00:00 (500 mg [facility] 500 MG 00 :00 total) by l tablet mouth 4 (four) times a day for 30 days. mycophenola 2020- No [id number] 500mg Q.5D Take 1 Methodi te 3- 08-[address] (CELLCEPT) 00:00: 00:00 (500 mg Hos jose francisco 500 mg 00 :00 total) by l tablet mouth 2 (two) times a day. acetaminoph 2020- No [id number] 1{tbl} Q4H Take 1-2 Methodi en-codeine 3- 03-[address] (TYLENOL 00:00: 04:59 mouth Hospita WITH 00 :00 every 4 l CODEINE #3) (four) 300-30 mg hours as per tablet needed for moderate pain for up to 20 days .acute pain, chronic pain. ergocalcife 2021- No [id number] Q7D Take 1 M ethodi rol 08-[address] (VITAMIN 00:00: 05:59 (50,000 Hospi ta D2) 50,000 00 :00 Units l unit total) by capsule mouth once a week. ergocalcife 2021- No [id number] Q7D Take 1 M ethodi rol 08-[address] (VITAMIN 00:00: 00:00 (50,000 Hospi ta D2) 50,000 00 :00 Units l unit total) by capsule mouth once a week. ergocalcife 2021- No [id number] Q7D Take 1 M ethodi rol 08-13- capsule st (VITAMIN 00:00: 00:00 (50,000 Hospi [...] exas 0.9% (NS) 00 :00 08/03/20 at Medi jose eduardo 270 mL 0915, For Branch infusion 1 dose
Ad direct service provider as an IV infusion over 60 minutes [...] exas 0.9% (NS) 00 :00 08/03/20 at [facility] jose eduardo 270 mL 0915, For Branch infusion 1 dose
Ad direct service provider as an IV infusion over 60 minutes [...] 14:14: daily. Hospit a 41 l apremilast 2021-0 Yes 30mg Q.5D Take 30 mg M ethodi (Otezla) 30 1-[address] mg tablet 14:14: (two) Hospita 41 times a l day. losartan 2021-0 Yes 50mg QD Take 50 mg Met hodi (COZAAR) 50 1-[address] MG tablet 14:14: daily. Hospit a 41 l amLODIPine 1-0 Yes 5mg QD Take 5 mg Me thodi (NORVASC) 5 1-[address] mg tablet 14:14: daily. Hospit a 41 l apremilast 2021-0 Yes 30mg Q.5D Take 30 mg M ethodi (Otezla) 30 1-[address] mg tablet 14:14: (two) Hospita 41 times a l day. losartan 1-0 Yes 50mg QD Take 50 mg Met hodi (COZAAR) 50 1-[address] MG tablet 14:14: daily. Hospit a 41 l amLODIPine 1-0 Yes 5mg QD Take 5 mg Me thodi (NORVASC) 5 1-[address] mg tablet 14:14: daily. Hospit a 41 l apremilast 1-0 Yes 30mg Q.5D Take 30 mg M ethodi (Otezla) 30 1-[address] mg tablet 14:14: (two) Hospita 41 times a l day. traMADoL 2019-06 Yes [id number] 50mg Q4H Take 1 Method i (ULTRAM) 50 0-27 tablet (50 st mg tablet 00:00: mg total) Hos jose francisco 00 by mouth l every 4 (four) hours as needed for moderate pain for up to 30 days .chronic pain. traMADoL 2019-06- [place] [id number] 50mg Q4H Take 1 Metho di (ULTRAM) 50 0-27 03-03 tablet (50 s t mg tablet 00:00: 00:00 mg total) Ho spita 00 :00 by mouth l every 4 (four) hours as needed for moderate pain for up to 30 days .chronic pain. traMADoL 2019-06- No [id number] 50mg Q4H Take 1 Metho di (ULTRAM) [...] .5mg Q.5D Take 1 Meth sebas (PROGRAF) 015 -[address] 0.5 MG 00:00: 00:00 (0.5 mg Hospita capsule 00 :00 total) by l mouth 2 (two) times a day. magnesium No 400mg Q.5D Take 1 Meth sebas oxide 5-[address] (MAG-OX) 00:00: 00:00 (400 mg Hospi ta 400 mg 00 :00 total) by l (241.3 mg mouth 2 magnesium) (two) tablet times a day. methocarbam Yes 750mg Q8H Take 1 Met hodi oL 4-[address] (Robaxin-75 00:00: (750 mg Hos jose francisco 0) 750 MG 00 total) by l tablet mouth every 8 (eight) hours. methocarbam 0 2021- No 750mg Q8H Take 1 Me thodi oL 09-25-[address] (Robaxin-75 00:00: 00:00 (750 mg Ho spita 0) 750 MG 00 :00 total) by l tablet mouth every 8 (eight) hours. methocarbam 2019-0 2021- No 750mg Q8H Take 1 Me thodi oL 09-25-[address] (Robaxin-75 00:00: 00:00 (750 mg Ho spita 0) 750 MG 00 :00 total) by l tablet mouth every 8 (eight) hours. rosuvastati 2020- No 20mg QD Take 1 Met hodi n (CRESTOR) 08-15- tablet (20 s t 20 MG 00:00: 05:59 mg total) Hospit a tablet 00 :00 by mouth l every evening. ergocalcife No [id number] Q7D Take 1 M ethodi rol 08-[address] (VITAMIN 00:00: 00:00 (50,000 Hospi ta D2) 50,000 00 :00 Units l unit total) by capsule mouth once a week. aspirin 2018- Yes 81mg QD Take 1 Methodi (ECOTRIN) [...] mouth Hospita tablet 00 daily. l aspirin 2018-0 Yes 81mg QD Take 1 Methodi (ECOTRIN) 1-21 tablet (81 st 81 MG 00:00: mg total) Hospita enteric 00 by mouth l coated every tablet morning. multivitami 2019 Yes 1{tbl} QD Take 1 Me thodi n with 1-[address] minerals 00:00: mouth Hospita tablet 00 daily. l Immunizations Ordered Immunization Filled Immunization Date Status Commen ts Source Name Name FLUCELVAX QUAD PF 2018-03-[address] 00:00:00 Hospital Pneumococcal 2018-03-26 Completed [facility] Polysaccharide 00:00:00 Hospital FLUCELVAX QUAD PF 2018-03-[address] 00:00:00 Hospital Pneumococcal 2018-03-26 Completed [facility] Polysaccharide 00:00:00 Hospital FLUCELVAX QUAD PF 2018-03-[address] 00:00:00 Hospital Pneumococcal 2018-03-26 Completed [facility] Polysaccharide 00:00:00 Hospital Vital Signs Vital Name Observation Time Observation Value Comments Source Systolic blood 2021-06-07 167 mm[Hg] University of pressure 15:49:[address] [facility] Diastolic blood 2021-06-07 83 mm[Hg] University o f pressure 15:49:[address] [facility] Heart rate 2021-06-07 82 /min University of 15:49:[address] [facility] Body temperature 2021-06-07 37.17 Michelle University of 15:49:[address] [facility] Respiratory rate 2021-06-07 18 /min University of 15:49:[address] [facility] Oxygen saturation 2021-06-07 96 /min University of in Arterial blood 15:49:00 [facility] jose eduardo by Pulse oximetry Branch Body height 2021-06-07 165.1 cm University of 14:27:[address] [facility] Body weight 2021-06-07 97.523 kg University of 14:27:[address] [facility] BMI 2021-06-07 35.78 kg/m2 University of 14:27:[address] [facility] Systolic blood 2020-08-03 179 mm[Hg] University of pressure 17:15:[address] [facility] Diastolic blood 2020-08-03 84 mm[Hg] University o f pressure 17:15:[address] [facility] Heart rate 2020-08-03 104 /min University of 17:15:[address] [facility] Body temperature 2020-08-03 37 Michelle University of 17:15:[address] [facility] Respiratory rate 2020-08-03 18 /min University of 17:15:[address] [facility] Oxygen saturation 2020-08-03 97 /min University of in Arterial blood 17:15:00 [facility] jose eduardo by Pulse oximetry Branch Body height 2020-08-03 172.7 cm University of 14:10:[address] [facility] Body weight 2020-08-03 113.399 kg University of 14:10:[address] [facility] BMI 2020-08-03 38.01 kg/m2 University of 14:10:[address] [facility] Systolic blood 2021-11-27 133 mm[Hg] [facility] pressure 18:51:00 [facility] Diastolic blood 2021-11-27 65 mm[Hg] [facility] pressure 18:51:00 Hospital Heart rate 2021-11-27 81 /min [facility] 18:51:00 Hospital Body temperature 2021-11-27 37.33 Michelle [facility] 18:51:00 Hospital Respiratory rate 2021-11-27 17 /min [facility] 18:51:00 Hospital Body height 2021-11-27 172.7 cm [facility] 18:51:00 Hospital Body weight 2021-11-27 110.451 kg [facility] 18:51:00 Hospital BMI 2021-11-27 37.02 kg/m2 [facility] 18:51:00 Hospital Oxygen saturation 2021-11-27 96 /min [facility] in Arterial blood 18:51:00 Hospital by Pulse oximetry Systolic blood 2021-04-03 161 mm[Hg] taken his bp [facility] pressure 20:10:00 medication this Hospital morning Diastolic blood 2021-04-03 77 mm[Hg] taken his bp [facility] pressure 20:10:00 medication this Hospital morning Heart rate 2021-04-03 73 /min [facility] 20:10:00 Hospital Body temperature 2021-04-03 36.22 Michelle [facility] 20:10:00 Hospital Respiratory rate 2021-04-03 16 /min [facility] 20:10:00 Hospital Body weight 2021-04-03 111.494 kg [facility] 20:10:00 Hospital BMI 2021-04-03 37.37 kg/m2 [facility] 20:10:00 Hospital Oxygen saturation 2021-04-03 97 /min [facility] in Arterial blood 20:10:00 Hospital by Pulse oximetry Body height 2020-08-22 172.7 cm [facility] 18:42:00 Hospital Procedures Procedure Date / Time Performing Clinician Source Performed MAGNESIUM LEVEL 2021-11-25 13:46:00 TaylorLuis Miguel salcido [facility] HEPATIC FUNCTION PANEL 2021-11-25 13:46:00 TaylorLuis Miguel salcido [facility] BASIC METABOLIC PANEL, 2021-11-25 13:46:00 TaylorLuis Miguel salcido [facility] PLASMA PHOSPHATIDYLETHANOL, BLOOD 2021-11-25 13:46:00 Luis Miguel Vazquez [facility] PROTHROMBIN TIME WITH INR 2021-11-25 13:46:00 TaylorLuis Miguel salcido Ma [facility] CBC WITH PLATELET AND 2021-11-25 13:46:00 TaylorLuis Miguel salcido [facility] DIFFERENTIAL [id number] TACROLIMUS LEVEL, 2021-11-25 13:46:00 [facility] RANDOM CT CHEST WO CONTRAST 2021-08-21 17:14:05 [facility] MRI ABDOMEN W WO CONTRAST 2021-08-21 16:25:00 [facility] COVID-19 ANTI-SPIKE IGG 2021-08-21 15:05:00 [facility] ANTIBODY TITER HC COMPLETE BLD COUNT 2021-08-21 15:05:00 [facility] W/AUTO DIFF COMPREHENSIVE METABOLIC 2021-08-21 15:05:00 [facility] PANEL MAGNESIUM LEVEL 2021-08-21 15:05:00 [facility] HEMOGLOBIN A1C 2021-08-21 15:05:00 [facility] LIPID PANEL 2021-08-21 15:05:00 [facility] PARTIAL THROMBOPLASTIN 2021-08-21 15:05:00 [facility] TIME (PTT) PROTHROMBIN TIME WITH INR 2021-08-21 15:05:00 [facility] VITAMIN D 1,25 DIHYDROXY 2021-08-21 15:05:00 [facility] LEVEL, SERUM CYTOMEGALOVIRUS BY PCR 2021-08-21 15:05:00 [facility] VITAMIN D 25 HYDROXY LEVEL 2021-08-21 [facility] THYROID STIMULATING 2021-08-21 15:05:00 [facility] HORMONE URINE DRUGS OF ABUSE 2021-08-21 15:05:00 [facility] SCREEN GGT 2021-08-21 15:05:00 [facility] PROTEIN, URINE, RANDOM 2021-08-21 15:05:00 [facility] CREATININE LEVEL, URINE, 2021-08-21 15:05:00 [facility] RANDOM [id number] TACROLIMUS LEVEL, 2021-08-21 15:05:00 [facility] [place] RANDOM HEPATOCELLULAR CARCINOMA 2021-08-21 15:05:00 [facility] MARKER PANEL PHOSPHATIDYLETHANOL, BLOOD 2021-08-21 15:05:00 Taylor, [facility] ESTIMATED GFR 2021-08-21 15:05:00 [facility] DONOR SPECIFIC ANTIBODY 2021-08-21 15:05:00 [facility] CONSENT/REFUSAL FOR 2021-06-07 06:01:00 Doctor Unassigned, [facility] DIAGNOSIS AND TREATMENT [facility] MAGNESIUM LEVEL 2021-04-01 13:[facility] 2021-04-01 13:21:00 [facility] PANEL PROTHROMBIN TIME WITH INR 2021-04-01 13:21:00 Taylor, [facility] CBC WITH PLATELET AND 2021-04-01 13:21:00 [facility] DIFFERENTIAL [id number] TACROLIMUS LEVEL, 2021-04-01 13:21:00 [facility] RANDOM MAGNESIUM LEVEL 2021-02-03 12:47:00 Taylor, [facility] METABOLIC 2021-02-03 12:47:00 Taylor, [facility] PANEL PHOSPHATIDYLETHANOL, BLOOD 2021-02-03 12:47:00 [facility] PROTHROMBIN TIME WITH INR 2021-02-03 12:47:00 Taylor, [facility] CBC WITH PLATELET AND 2021-02-03 12:47:00 [facility] DIFFERENTIAL [id number] TACROLIMUS LEVEL, 2021-02-03 12:47:00 [facility] RANDOM MAGNESIUM LEVEL 2020-12-25 12:41:00 [facility] METABOLIC 2020-12-25 12:41:00 [facility] PANEL PHOSPHATIDYLETHANOL, BLOOD 2020-12-25 12:41:00 [facility] PROTHROMBIN TIME WITH INR 2020-12-25 12:41:00 [facility] CBC WITH PLATELET AND 2020-12-25 12:41:00 [facility] DIFFERENTIAL [id number] TACROLIMUS LEVEL, 2020-12-25 12:41:00 [facility] RANDOM MAGNESIUM LEVEL 2020-10-31 12:39[facility] 2020-10-31 12:39:00 [facility] PANEL PHOSPHATIDYLETHANOL, BLOOD 2020-10-31 12:39:00 [facility] PROTHROMBIN TIME WITH INR 2020-10-31 12:39:00 [facility] CBC WITH PLATELET AND 2020-10-31 12:39:00 [facility] DIFFERENTIAL [id number] TACROLIMUS LEVEL, 2020-10-31 12:39:00 [facility] RANDOM MAGNESIUM LEVEL 2020-09-30 13:40:00 [facility] METABOLIC 2020-09-30 13:40:00 [facility] PANEL PHOSPHATIDYLETHANOL, BLOOD 2020-09-30 13:40:00 [facility] PROTHROMBIN TIME WITH INR 2020-09-30 13:40:[address] [facility] CBC WITH PLATELET AND 2020-09-30 13:40:00 [facility] DIFFERENTIAL [id number] TACROLIMUS LEVEL, 2020-09-30 13:40:00 [facility] RANDOM MRI PELVIS WO CONTRAST 2020-09-06 17:10:00 Jamarcus Phillips [facility] MRI LUMBAR SPINE WO 2020-09-06 16:23:00 [facility] CONTRAST REFERRAL- REQUEST/RESPONSE 2020-08-01 06:01:00 Doctor Unassigned , [facility] Plan of Care Planned Activity Planned Date Details Comments Source Future Scheduled 2022-03-20 HEPATITIS B VACCINES Met [facility] Test 03:06:19 (1 of 3 - 3-dose series) [code = HEPATITIS B VACCINES (1 of 3 - 3-dose series)] Future Scheduled 2022-03-20 COVID-19 VACCINE (#1) [facility] Test 03:06:19 [code = COVID-19 VACCINE (#1)] Future Scheduled 2022-03-20 SHINGLES VACCINES (1 Met [facility] Test 03:06:19 of 2) [code = SHINGLES VACCINES (1 of 2)] Future Scheduled 2022-03-20 COLONOSCOPY SCREENING [facility] Test 03:06:19 [code = COLONOSCOPY SCREENING] Future Scheduled 2022-03-20 Pneumococcal Vaccine: [facility] Test 03:06:19 Pediatrics (0 to 5 Years) and At-Risk Patients (6 to 64 Years) (2 - PCV) [code = Pneumococcal Vaccine: Pediatrics (0 to 5 Years) and At-Risk Patients (6 to 64 Years) (2 - PCV)] Future Scheduled 2022-03-20 INFLUENZA VACCINE Method [facility] Test 03:06:19 [code = INFLUENZA VACCINE] Future Scheduled 2022-02-18 HEPATITIS B VACCINES Met [facility] Test 12:28:16 (1 of 3 - 3-dose series) [code = HEPATITIS B VACCINES (1 of 3 - 3-dose series)] Future Scheduled 2022-02-18 COVID-19 VACCINE (#1) [facility] Test 12:28:16 [code = COVID-19 VACCINE (#1)] Future Scheduled 2022-02-18 SHINGLES VACCINES (1 Met [facility] Test 12:28:16 of 2) [code = SHINGLES VACCINES (1 of 2)] Future Scheduled 2022-02-18 COLONOSCOPY SCREENING [facility] Test 12:28:16 [code = COLONOSCOPY SCREENING] Future Scheduled 2022-02-18 Pneumococcal Vaccine: [facility] Test 12:28:16 Pediatrics (0 to 5 Years) and At-Risk Patients (6 to 64 Years) (2 - PCV) [code = Pneumococcal Vaccine: Pediatrics (0 to 5 Years) and At-Risk Patients (6 to 64 Years) (2 - PCV)] Future Scheduled 2022-02-18 INFLUENZA VACCINE Method is Hospital Test 12:28:16 [code = INFLUENZA VACCINE] Future Scheduled 2021-07-22 COVID-19 VACCINE (1) Met [facility] Test 06:14:35 [code = COVID-19 VACCINE (1)] Future Scheduled 2021-07-22 COLONOSCOPY SCREENING Me [facility] Test 06:14:35 [code = COLONOSCOPY SCREENING] Future Scheduled 2021-07-22 SHINGLES VACCINES (#1) M [facility] Hospital Test 06:14:35 [code = SHINGLES VACCINES (#1)] Future Scheduled 2021-07-22 INFLUENZA VACCINE Method is Hospital Test 06:14:35 [code = INFLUENZA VACCINE] Encounters Start End Encounter Admission Attending Care Care Encounter Source Date/Time Date/Time Type Type Clinicians Facility Department ID 2022-01-21 2022-01-21 Refill Taylor, 1.2.840.1 [id number] Methodi 00:00:00 00:00:00 Rafik Chris 57846.1.1 740 s t 3.430.2.7 Hospit a .3.796709 l .8 2022-01-21 2022-01-21 Refill Taylor, 1.2.840.1 [id number] 2100 [id number] Methodi 00:00:00 00:00:00 Rafik Chris 18626.1.1 740 s t 3.430.2.7 Hospit a .3.668143 l .8 2021-11-27 2021-11-27 Social Domingo 1.2.840.1 [id number] 080383 1429 Methodi 15:00:00 15:15:00 Work Natalia 09894.1.[address] 3.430.2.7 Hospit a .3.175166 l .8 2021-11-27 2021-11-27 Social Domingo 1.2.840.1 [id number] 787779 5927 Methodi 15:00:00 15:15:00 Work Natalia [address]162.1.[address] 3.430.2.7 Hospit a .3.634084 l .8 2021-11-27 2021-11-27 Office AlexYusuf, 1.2.840.1 [id number] 21 [id number] Methodi 14:00:00 14:15:00 Visit Reynaldo 41209.1.[address] 3.430.2.7 Hospit a .3.047169 l .8 2021-11-27 2021-11-27 Office AlexYusuf, 1.2.840.1 [id number] [id number] Methodi 14:00:00 14:15:00 Visit Reynaldo 29728.1.[address] 3.430.2.7 Hospit a .3.688454 l .8 2021-11-27 2021-11-27 Travel 1.2.840.1 1.2.818.737 9579 867309 Methodi 00:00:00 00:00:[address] 3.430.2.7 0.2.7.3.698 Ho spita .3.587684 084.8 l .8 2021-11-27 2021-11-27 Travel 1.2.840.1 1.2.349.183 5679 520163 Methodi 00:00:00 00:00:[address] 3.430.2.7 0.2.7.3.698 Ho spita .3.323211 084.8 l .8 2021-11-25 2021-11-25 Orders Taylor, 1.2.840.8 [id number] 847 0798411 Methodi 00:00:00 00:00:00 Only Luis Miguel Chris 71632.1.1 253 s t 3.430.2.7 Hospit a .3.564531 l .8 2021-11-25 2021-11-25 Orders Taylor, 1.2.840.2 [id number] 253 [id number] Methodi 00:00:00 00:00:00 Only Luis Miguel Chris 73142.1.1 253 s t 3.430.2.7 Hospit a .3.000672 l .8 2021-10-16 2021-10-16 Cha Phillips, 1.2.840.1 [id number] 52778 76627 Methodi 00:00:00 00:00:00 [address]reet [address]886.1.[address] 3.430.2.7 Hospit a .3.389478 l .8 2021-10-16 2021-10-16 [facility] Jacqueline, 1.2.840.1 [id number] 86924 71601 Methodi 00:00:00 00:00:00 [address]evin [address] 3.430.2.7 Hospit a .3.142130 l .8 2021-08-21 2021-08-21 [facility], 1.2.840.1 [id number] 2 [id number] Methodi 10:44:00 23:59:00 Encounter Reynaldo 35243.1.[address] 3.430.2.7 Hospit a .3.257837 l .8 2021-08-21 2021-08-21 [facility], 1.2.840.1 [id number] 2 [id number] Methodi 10:44:00 23:59:00 Encounter Reynaldo 94081.1.[address] 3.430.2.7 Hospit a .3.940782 l .8 2021-08-21 2021-08-21 [facility], 1.2.840.1 [id number] 21 [id number] Methodi 14:30:00 14:45:00 Visit Reynaldo 76913.1.[address] 3.430.2.7 Hospit a .3.650751 l .8 2021-08-21 2021-08-21 [facility], 1.2.840.1 [id number] 21 [id number] Methodi 14:30:00 14:45:00 Visit Reynaldo 86513.1.[address] 3.430.2.7 Hospit a .3.447638 l .8 2021-08-21 2021-08-21 [facility], 1.2.840.1 [id number] 2 [id number] Methodi 09:28:24 10:43:00 Encounter Reynaldo 12574.1.[address] 3.430.2.7 Hospit a .3.853482 l .8 2021-08-21 2021-08-21 [facility], .2.840.1 [id number] 2 [id number] Methodi 09:28:24 10:43:00 Encounter Reynaldo 98921.1.[address] 3.430.2.7 Hospit a .3.148085 l .8 2021-08-21 2021-08-21 Travel 1.2.840.1 1.2.884.273 1852 584153 Methodi 00:00:00 00:00:[address] 3.430.2.7 0.2.7.3.698 Ho spita .3.484749 084.8 l .8 2021-08-21 2021-08-21 [facility] 625 [id number] [place] 00:00:00 00:00:00 REYNALDO Raymond Method i st 2021-08-21 2021-08-21 Travel 1.2.840.1 1.2.509.080 6718 743498 Methodi 00:00:00 00:00:[address] 3.430.2.7 0.2.7.3.698 Ho spita .3.042872 084.8 l .8 2021-07-28 2021-07-28 Refill Ping, 1.2.840.1 751267808 651298 7969 Methodi 00:00:00 00:00:[address] 3.430.2.7 Hospit a .3.569226 l .8 2021-07-28 2021-07-28 Refill Ping, 1.2.840.1 928951209 569878 3747 Methodi 00:00:00 00:00:[address] 3.430.2.7 Hospit a .3.409540 l .8 2021-07-22 2021-07-22 Orders Ping, 1.2.840.1 838621266 883481 1122 Methodi 00:00:00 00:00:00 [address] Loideth 41729.1.[address] 3.430.2.7 Hospit a .3.636482 l .8 2021-07-22 2021-07-22 Orders Ping, 1.2.840.1 037525645 904428 7440 Methodi 00:00:00 00:00:00 Only Loideth 18737.1.[address] 3.430.2.7 Hospit a .3.730147 l .8 2021-06-23 2021-06-23 Orders Ping, 1.2.840.1 760063994 197943 7717 Methodi 00:00:00 00:00:00 Only Loideth 29613.1.[address] 3.430.2.7 Hospit a .3.266676 l .8 2021-06-23 2021-06-23 Orders Ping, 1.2.840.1 532083015 149516 9370 Methodi 00:00:00 00:00:00 Only Loideth 85733.1.[address] 3.430.2.7 Hospit a .3.352486 l .8 2021-06-12 2021-06-12 Cha Phillips, 1.2.840.1 [id number] 05971 Methodi 00:00:00 00:00:[address] 3.430.2.7 Hospit a .3.982753 l .8 2021-06-12 2021-06-12 Cha Phillips, 1.2.840.1 [id number] 21337 92235 Methodi 00:00:00 00:00:[address] 3.430.2.7 Hospit a .3.459640 l .8 2021-06-10 2021-06-10 Cha Phillips, 1.2.840.1 [id number] 19689 09424 Methodi 00:00:00 00:00:[address] 3.430.2.7 Hospit a .3.795297 l .8 2021-06-10 2021-06-10 Refsampson Jacqueline, 1.2.840.1 [id number] 72768 45305 Methodi 00:00:00 00:00:00 Jamarcus Case [address]16.1.[address] 3.430.2.7 Hospit a .3.510549 l .8 2021-06-07 2021-06-07 Nurse Therapy, Clc Covid Infusion [facility] 1.2.840.114 [id number] Univers 08:30:00 09:30:00 Visit Av Miguel [facility] 350.1.13.10 [place] [phone] [place] [address] Branch OFFICE BUILDING 2021-06-07 2021-06-07 Outpatient Abdiel MIGUEL [facility] 729559S -20 Univers 08:30:00 08:30:00 AV [id number] [facility] 2021-06-07 2021-06-07 Outpatient Abdiel MIGUEL [facility] [id number] Univers 08:30:00 08:30:00 AV [facility] 2021-06-07 2021-06-07 Orders Doctor ONEYDA 1.2.840.114 [id number] 43 Univers 00:00:00 00:00:00 Only Unassigned, SERENA 350.1.13.10 ity of [facility] 4.2.7.2.686 Aakash as [id number] [place] [address] Branch 2021-05-26 2021-05-26 Orders Ping, 1.2.840.1 500844040 904302 2628 Methodi 00:00:00 00:00:00 Only Claireth 84579.1.[address] 3.430.2.7 Hospit a .3.475045 l .8 2021-05-26 2021-05-26 Orders Ping, 1.2.840.1 380559002 603651 4736 Methodi 00:00:00 00:00:00 Only Loideth 64851.1.[address] 3.430.2.7 Hospit a .3.445542 l .8 2021-05-122021-05-12 Refsampson Phillips, 1.2.840.1 330869116 52814 35109 Methodi 00:00:00 00:00:00 Jamarcus Case [address]502.1.[address] 3.430.2.7 Hospit a .3.415507 l .8 2021-05-12 2021-05-12 Refsampson Phillips, 1.2.840.1 [id number] 97298 Methodi 00:00:00 00:00:00 Jamarcus Case [address]35.1.[address] 3.430.2.7 Hospit a .3.534814 l .8 2021-04-24 2021-04-24 [facility], 1.2.840.1 [id number] 2099 600411 Methodi 00:00:00 00:00:[address] 3.430.2.7 Hospit a .3.469552 l .8 2021-04-24 2021-04-24 [facility], 1.2.840.1 [id number] 2099 906811 Methodi 00:00:00 00:00:[address] 3.430.2.7 Hospit a .3.278872 l .8 2021-04-03 2021-04-03 [facility], 1.2.840.1 [id number] 361611 5922 Methodi 15:45:00 16:00:00 Work Kerline 46496.1.[address] 3.430.2.7 Hospit a .3.797627 l .8 2021-04-03 2021-04-03 [facility], 1.2.840.1 [id number] 448645 9766 Methodi 15:45:00 16:00:00 Work Kerline 08051.1.[address] 3.430.2.7 Hospit a .3.502979 l .8 2021-04-03 2021-04-03 [facility], 1.2.840.1 [id number] 02911831 Methodi 14:45:00 15:00:00 Visit Reynaldo 10252.1.[address] 3.430.2.7 Hospit a .3.962684 l .8 2021-04-03 2021-04-03 Office Olvin, 1.2.840.1 [id number] 21 [id number] Methodi 14:45:00 15:00:00 Visit Reynaldo 54923.1.[address] 3.430.2.7 Hospit a .3.841756 l .8 2021-04-03 2021-04-03 Travel 1.2.840.1 1.2.276.328 4774 609005 Methodi 00:00:00 00:00:[address] 3.430.2.7 0.2.7.3.698 Ho spita .3.825414 084.8 l .8 2021-04-03 2021-04-03 Travel 1.2.840.1 1.2.743.331 6989 450353 Methodi 00:00:00 00:00:[address] 3.430.2.7 0.2.7.3.698 Ho spita .3.583560 084.8 l .8 2021-04-01 2021-04-01 Orders Taylor, 1.2.840.2 [id number] 976 6745049 Methodi 00:00:00 00:00:00 Only Luis Miguel Chris 64960.1.1 609 s t 3.430.2.7 Hospit a .3.966606 l .8 2021-04-01 2021-04-01 Orders Taylor, 1.2.840.6 0714580297 957 0572018 Methodi 00:00:00 00:00:00 Only Luis Miguel Chris 19258.1.1 609 s t 3.430.2.7 Hospit a .3.988252 l .8 2021-03-18 2021-03-18 Refill Ping, 1.2.840.1 590683845 864053 1843 Methodi 00:00:00 00:00:[address] 3.430.2.7 Hospit a .3.751718 l .8 2021-03-18 2021-03-18 Refill Ping, 1.2.840.1 358978638 705609 5269 Methodi 00:00:00 00:00:[address] 3.430.2.7 Hospit a .3.966377 l .8 2021-02-20 2021-02-20 Telephone Manjit, 1.2.840.1 [id number] 21 [id number] Methodi 00:00:00 00:00:[address] 3.430.2.7 Hospit a .3.245342 l .8 2021-02-18 2021-02-18 Refill Ping, 1.2.840.1 215387292 228297 7674 Methodi 00:00:00 00:00:[address] 3.430.2.7 Hospit a .3.601205 l .8 2021-02-05 2021-02-05 Telephone Devora, 1.2.840.1 [id number] 21 [id number] Methodi 00:00:00 00:00:[address] 3.430.2.7 Hospit a .3.646664 l .8 2021-02-03 2021-02-03 Orders Taylor, 1.2.840.5 7537222501 694 9577712 Methodi 00:00:00 00:00:00 Only Luis Miguel Perez 14893.1.1 724 s t 3.430.2.7 Hospit a .3.348958 l .8 2020-12-28 2020-12-28 Transplant Ankzoraida-Yusuf, 1.2.840.1 [id number] 9401099508 Methodi 07:01:04 07:16:04 Telemedici Reynaldo 46683.1.1 354 s t ne 3.430.2.7 Hospit a .3.037387 l .8 2020-12-26 2020-12-26 Telephone Maritza, 1.2.840.1 [id number] 838 6594031 Methodi 00:00:00 00:00:[address] 3.430.2.7 Hospit a .3.599222 l .8 2020-12-25 2020-12-25 Orders Taylor, 1.2.840.5 5770851509 704 3888884 Methodi 00:00:00 00:00:00 Only Luis Miguel Chris 28127.1.1 053 s t 3.430.2.7 Hospit a .3.369347 l .8 2020-12-03 2020-12-03 Telemedici Jacqueline, 1.2.840.1 [id number] 21 [id number] Methodi 11:39:49 11:59:49 ne Jamarcus Case 53512.1.[address] 3.430.2.7 Hospit a .3.393750 l .8 2020-11-28 2020-11-28 Refill Taylor, 1.2.840.1 [id number] 2099 584301 Methodi 00:00:00 00:00:00 Felipemalcolm Chris 20026.1.1 530 s t 3.430.2.7 Hospit a .3.601093 l .8 2020-11-27 2020-11-27 Refill Taylor, 1.2.840.1 [id number] 2099 871129 Methodi 00:00:00 00:00:00 Felipemalcolm Chris 07790.1.1 121 s t 3.430.2.7 Hospit a .3.881223 l .8 2020-11-27 2020-11-27 Refill Buchert, 1.2.840.1 689827915 40929 78879 Methodi 00:00:00 00:00:[address] 3.430.2.7 Hospit a .3.312716 l .8 2020-11-01 2020-11-01 Telephone Raheel, 1.2.840.1 [id number] 2099 377428 Methodi 00:00:00 00:00:[address] 3.430.2.7 Hospit a .3.353784 l .8 2020-10-31 2020-10-31 Orders Taylor, 1.2.840.1 711159641 2099 092196 Methodi 00:00:00 00:00:00 Only Luis Miguel Perez 83820.1.1 249 s t 3.430.2.7 Hospit a .3.173686 l .8 2020-10-09 2020-10-09 Documentat Pepper, 1.2.840.1 291346381 09425811 Methodi 00:00:00 00:00:00 ion Jocelyn 92111.1.[address] 3.430.2.7 Hospit a .3.594435 l .8 2020-10-04 2020-10-04 Telephone Ping, 1.2.840.1 025626157 2100 028635 Methodi 00:00:00 00:00:[address] 3.430.2.7 Hospit a .3.215728 l .8 2020-10-02 2020-10-02 Procedure Lavonne, 1.2.840.1 [id number] 911 5375606 Methodi 11:38:54 15:23:37 visit Shant 52236.1.[address] Sage 3.430.2.7 Hospit a .3.857304 l .8 2020-10-02 2020-10-02 Travel 1.2.840.1 1.2.048.378 3670 186327 Methodi 00:00:00 00:00:[address] 3.430.2.7 0.2.7.3.698 Ho spita .3.164369 084.8 l .8 2020-09-30 2020-09-30 Orders Taylor, 1.2.840.1 430944207 2099 667362 Methodi 00:00:00 00:00:00 Only Luis Miguel Perez 26753.1.1 483 s t 3.430.2.7 Hospit a .3.370136 l .8 2020-09-24 2020-09-24 Travel 1.2.840.1 1.2.717.856 5827 708939 Methodi 00:00:00 00:00:[address] 3.430.2.7 0.2.7.3.698 Ho spita .3.309960 084.8 l .8 2020-09-16 2020-09-16 Office Lavonne, 1.2.840.1 065629395 87526 36091 Methodi 09:38:18 11:07:39 Visit Shant 45978.1.[address] Sage 3.430.2.7 Hospit a .3.764751 l .8 2020-09-16 2020-09-16 Travel 1.2.840.1 1.2.179.845 2999 299349 Methodi 00:00:00 00:00:[address] 3.430.2.7 0.2.7.3.698 Ho spita .3.910613 084.8 l .8 2020-09-11 2020-09-11 Orders Micha, 1.2.840.1 470329909 59340 Methodi 00:00:00 00:00:00 Only Cleo 60403.1.[address] 3.430.2.7 Hospit a .3.141788 l .8 2020-09-11 2020-09-11 Orders Jacqueline, 1.2.840.1 726714584 37959 Methodi 00:00:00 00:00:00 Only Jamarcus Case 78317.1.[address] 3.430.2.7 Hospit a .3.206089 l .8 2020-09-10 2020-09-10 Office Jacqueline, 1.2.840.1 945103529 32720 47054 Methodi 09:55:35 10:20:46 Visit Jamarcus Case 83788.1.[address] 3.430.2.7 Hospit a .3.263999 l .8 2020-09-10 2020-09-10 [facility], 1.2.840.1 [id number] 11739 49774 Methodi 00:00:00 00:00:00 Only Jamarcus Case 46116.1.[address] 3.430.2.7 Hospit a .3.223797 l .8 2020-09-10 2020-09-10 Travel 1.2.840.1 1.2.385.238 4902 905891 Methodi 00:00:00 00:00:[address] 3.430.2.7 0.2.7.3.698 Ho spita .3.975096 084.8 l .8 2020-09-06 2020-09-06 [facility] Cedric 1.2.840.1 [id number] 21 [id number] Methodi 10:23:29 23:59:00 Encounter Rene 86484.1.[address] Kermit 3.430.2.7 Hospit a .3.647954 l .8 2020-09-06 2020-09-06 [facility] Vale Richy Lau Treviño 1.2.840 .1 [id number] [id number] Methodi 10:23:18 23:59:00 Encounter Rene Steele 34270.1.[address] 3.430.2.7 Hospit a .3.272915 l .8 2020-09-05 2020-09-05 Travel 1.2.840.1 1.2.726.010 7329 742377 Methodi 00:00:00 00:00:[address] 3.430.2.7 0.2.7.3.698 Ho spita .3.062260 084.8 l .8 2020-09-03 2020-09-03 Travel 1.2.840.1 1.2.601.035 7423 498376 Methodi 00:00:00 00:00:[address] 3.430.2.7 0.2.7.3.698 Ho spita .3.764761 084.8 l .8 2020-09-02 2020-09-02 Telephone [place], 1.2.840.1 [id number] 21 [id number] Methodi 00:00:00 00:00:[address] 3.430.2.7 Hospit a .3.795733 l .8 2020-08-30 2020-08-30 Travel 1.2.840.1 1.2.425.856 4345 034389 Methodi 00:00:00 00:00:[address] 3.430.2.7 0.2.7.3.698 Ho spita .3.556135 084.8 l .8 2020-08-28 2020-08-28 Orders Muse, 1.2.840.1 [id number] 04802 33602 Methodi 00:00:00 00:00:00 Only Cleo 46863.1.[address] 3.430.2.7 Hospit a .3.695564 l .8 2020-08-28 2020-08-28 Orders Muse, 1.2.840.1 277077655 11794 Methodi 00:00:00 00:00:00 Only Cleo 59025.1.[address] 3.430.2.7 Hospit a .3.640513 l .8 2020-08-22 2020-08-22 Office Luis Miguel Vazquez 1.2.840.1 104 508385 9955770907 Methodi 12:30:13 12:45:13 Visit Reynaldo Bah 21220.1.[address] 3.430.2.7 Hospit a .3.340108 l .8 2020-08-22 2020-08-22 Office Jacqueline 1.2.840.1 557067731 10790 38094 Methodi 10:47:44 11:02:44 Visit Jamarcus Case 55165.1.[address] 3.430.2.7 Hospit a .3.497283 l .8 2020-08-22 2020-08-22 Travel 1.2.840.1 1.2.780.730 5146 137875 Methodi 00:00:00 00:00:[address] 3.430.2.7 0.2.7.3.698 Ho spita .3.440497 084.8 l .8 2020-08-13 2020-08-13 Refill Ping, 1.2.840.1 878641251 640387 1344 Methodi 00:00:00 00:00:[address] 3.430.2.7 Hospit a .3.980638 l .8 2020-08-12 2020-08-12 Travel 1.2.840.1 1.2.477.321 5993 703018 Methodi 00:00:00 00:00:[address] 3.430.2.7 0.2.7.3.698 Ho spita .3.835389 084.8 l .8 2020-08-09 2020-08-09 Refill Jacqueline, 1.2.840.1 643512187 64716 84692 Methodi 00:00:00 00:00:00 Jamarcus Case 85149.1.[address] 3.430.2.7 Hospit a .3.549077 l .8 2020-08-08 2020-08-08 Refill Taylor, 1.2.840.1 947106154 2100 024346 Methodi 00:00:00 00:00:00 Luis Miguel Perez 15506.1.1 712 s t 3.430.2.7 Hospit a .3.142618 l .8 2020-08-05 2020-08-05 Outpatient [facility] [id number] -20 Univers 13:00:00 13:00:00 [facility] 2020-08-03 Nurse Therapy, Adc Covid Infusion [facility] 1.2.840.114 [id number] Univers 07:56:47 08:26:47 Visit Richy Coyne 350.1.13.10 ity [place] 613.6572344 [facility] [address] 2020-08-03 2020-08-03 Outpatient R [facility] [id number] 711 Univers 08:00:00 08:00:[address] [facility] 2020-08-01 2020-08-01 Orders Ping, 1.2.840.1 348304975 213382 3655 Methodi 00:00:00 00:00:00 Only Roland 55724.1.[address] 3.430.2.7 Hospit a .3.664852 l .8 2020-08-01 2020-08-01 Telephone Raheel, 1.2.840.1 030684453 2100 869314 Methodi 00:00:00 00:00:00 Y[address]jo [address]1629.1.[address] 3.430.2.7 Hospit a .3.765331 l .8 2020-08-01 2020-08-01 Orders Doctor CALL 1.2.840.114 753600 74 Univers 00:00:00 00:00:00 Only Unassigned, SERENA 350.1.13.10 [facility] 4.2.7.2.686 Aakash as [phone] [place] [address] [address] 2020-07-29 2020-07-29 Telephone Can, 1.2.840.1 [id number] 21 [id number] [facility] 00:00:00 00:00:[address] 3.430.2.7 Hospit a .3.124450 l .8 2020-07-03 2020-07-03 Outpatient TAYLOR, [facility] [id number] [place] 00:00:00 00:00:00 LUIS MIGUEL 944 [facility] 2020-07-03 2020-07-03 Outpatient SAHARIA, [facility] [id number] [place] 00:00:00 00:00:00 JERMAIN [address] 2020-07-03 2020-07-03 Outpatient TAYLOR, [facility] [id number] [place] 00:00:00 00:00:00 LUIS MIGUEL [address] 2020-07-03 2020-07-03 Outpatient TAYLOR, [facility] [id number] [place] 00:00:00 00:00:00 LUIS MIGUEL [address] 2020-04-26 2020-04-26 Outpatient ABDELRAHIM, [facility] [id number] [place] 00:00:00 00:00:00 TONIE [address] 2020-04-17 2020-04-17 Outpatient ABDELRAHIM, [facility] [id number] [place] 00:00:00 00:00:00 TONIE [address] 2020-04-09 2020-04-09 Outpatient ABDELRAHIM, [facility] [id number] [place] 00:00:00 00:00:00 TONIE [address] 2020-04-09 2020-04-09 Outpatient ABDELRAHIM, [facility] [id number] [place] 00:00:00 00:00:00 TONIE [address] 2020-04-09 2020-04-09 Outpatient ABDELRAHIM, [facility] [id number] [place] 00:00:00 00:00:00 TONIE [address] 2020-04-04 2020-04-04 Outpatient ANKOMA-SEY, [facility] [id number] [place] 00:00:00 00:00:00 REYNALDO [address] 2020-04-04 2020-04-04 Outpatient [facility] [id number] [place] 00:00:00 00:00:[address] 2020-03-07 2020-03-07 Outpatient MALONE, [facility] [id number] [place] 00:00:00 00:00:00 ALVARO [address] 2020-02-27 2020-02-27 Outpatient TAYLOR, [facility] [id number] [place] 00:00:00 00:00:00 LUIS MIGUEL [address] 2020-02-27 2020-02-27 Outpatient SIFF, DORI [facility] [id number] [place] 00:00:00 00:00:[address] 2020-02-27 2020-02-27 Outpatient [facility] [id number] [place] 00:00:00 00:00:[address] 2020-02-27 2020-02-27 Outpatient VALE, RICHY [facility] [id number] [place] 00:00:00 00:00:[address] 2020-02-27 2020-02-27 Outpatient DORI GAMEZ [facility] [id number] [place] 00:00:00 00:00:[address] 2020-02-22 2020-02-22 Outpatient ALEX-YUSUF, [facility] [id number] [place] 00:00:00 00:00:00 REYNALDO [address] 2020-02-22 2020-02-22 Outpatient EGWIAilyn, [facility] [id number] [place] 00:00:00 00:00:00 CHUYITA [address] 2020-02-22 2020-02-22 Outpatient KIRA, [facility] [id number] [place] 00:00:00 00:00:00 ALVARO [address] 2020-02-22 2020-02-22 Outpatient ALEX-YUSUF, [facility] [id number] [place] 00:00:00 00:00:00 REYNALDO [address] 2019-12-29 2019-12-29 Outpatient [facility] [id number] [place] 00:00:00 00:00:[address] 2019-09-27 2019-09-27 Outpatient [facility] [id number] [place] 00:00:00 00:00:[address] 2019-09-26 2019-09-26 Outpatient [facility] [id number] [place] 00:00:00 00:00:[address] 2019-09-26 2019-09-26 Outpatient [facility] [id number] [place] 00:00:00 00:00:[address] 2019-09-26 2019-09-26 Outpatient [facility] [id number] [place] 00:00:00 00:00:[address] 2019-09-26 2019-09-26 Outpatient VALE, RICHY [facility] [id number] [place] 00:00:00 00:00:[address] 2019-09-26 2019-09-26 Outpatient VALE, RICHY [facility] [id number] [place] 00:00:00 00:00:[address] 2019-08-15 2019-08-15 Outpatient TAYLOR, [facility] [id number] [place] 00:00:00 00:00:00 RAFIK 944 [facility] 2019-08-15 2019-08-15 Outpatient TAYLOR, [facility] [id number] [place] 00:00:00 00:00:00 RAFIK 949 [facility] 2019-08-15 2019-08-15 Outpatient TAYLOR, [facility] [id number] [place] 00:00:00 00:00:00 RAFIK 922 [facility] 2019-08-15 2019-08-15 Outpatient TAYLOR, [facility] [id number] [place] 00:00:00 00:00:00 RAFIK 931 [facility] 2019-08-15 2019-08-15 Outpatient TAYLOR, [facility] [id number] [place] 00:00:00 00:00:00 RAFIK 930 [facility] 2019-08-15 2019-08-15 Outpatient TAYLOR, [facility] [id number] [place] 00:00:00 00:00:00 RAFIK 980 [facility] 2019-08-15 2019-08-15 Outpatient TAYLOR, [facility] [id number] [place] 00:00:00 00:00:00 RAFIK [address] Results Test Description Test Time Test Comments Results Result Comments Source Hepatic function panel 2021-12-02 19:13:00 Test Item Value Reference Range Interpretation Comme nts Protein (test code = 7.3 g/dL 6.1-8.1 2885-2) Albumin, S (test code = 4.2 g/dL 3.6-5.1 1751-7) Globulin, total (test code See_Comment [Automated message] = 63357-4) The system ic h generated this result transmitted ref erence range: 1.9 - 3. 7 g/dL (calc). The ref erence range was not u sed to interpret this result as normal/abnor mal. Albumin/globulin ratio See_Comment [Aut omated message] (test code = 1759-0) [facility] which generated this result transmitted ref erence range: 1.0 - 2. 5 (calc). The ref erence range was not u sed to interpret this result as normal/abnor mal. Total bilirubin (test code 0.6 mg/dL 0.2-1.2 = 1974-07) Bilirubin direct (test 0.2 mg/dL See_Comment [Aut omated message] code = 1967-12) The system [facility] generated this result transmitted ref erence range: < OR = 0 .2. The reference range was not used to int erpret this result as normal/abnormal . Bilirubin, indirect (test See_Comment [ Automated message] code = 1970-06) The system [facility] generated this result transmitted ref erence range: [...] = RAC) Performing Organization Information: Site ID: [facility] Name: [facility] Address: [address] [place] [address] Director: Fran Guajardo Lab Interpretation (test Abnormal code = 63249-4) [facility]2022-06-14 19:13:00 Test Item Value Reference Range Interpretation Comments Magnesium (test code 2.0 mg/dL 1.5-2.5 = 28875-4) JOSEFA (test code = JOSEFA) FASTING:YES FASTING: YES RAC (test code = RAC) Performing Organization Information: Site ID: [facility] Name: [facility] Address: [address] [place] [address] Director: Fran Guajardo [facility] with platelet and [id number] 19:13:00 Test Item Value Reference Range Interpretation Comments WBC (test code = See_Comment [Automated 8613-2) message] The system which generated this result transmitted reference range : 3.8 - 10.8 Thousand/uL. Th e reference range was not used to interpret this result as normal/abnormal . RBC (test code = See_Comment [Automated 478-8) message] The system which generated this result [...] = Performing RAC) Organization Information: Site ID: [facility] Address: [address] [place], [place] [phone] Director: Fran Guajardo Lab Interpretation Abnormal (test code = 88585-2) [facility] [id number] 19:13:00 Test Item Value Reference Range Interpretation Comments INR (test code = Reference R marlo 6301-6) 0.9-1.1Moderate -i ntensity Warfar in Therapy 2.0-3.0Higher-i nt ensity Warfarin Therapy 3.0-4.0 Prothrombin time See_Comment For additio nal (test code = information, 5902-2) please refer tohttp://educat io n.Oneflarediagnost [employer]/faq/FAQ10 4( This link is being provided for informational/e du cational purpos es only.) [Automat ed message] The system which generated this result transmitted reference range : 9.0 - 11.5 sec. The reference range was not used to interpr et this result as normal/abnormal . JOSEFA (test code = FASTING:YES JOSEFA) FASTING: YES RAC (test code = Performing RAC) Organization Information: Site ID: [facility] Name: [facility] Address: [address] [place] [address] Director: Fran Guajardo [facility] Tacrolimus level, [id number] 19:13:00 Test Item Value Reference Range Interpretation Comments Tacrolimus, mcg/L No definitive highly therapeutic or toxic sensitive, ranges have LC/MS/MS beenestablished . (test code = Optimal blood d rug 09967-4) levels are influencedby ty pe of transplant, pat ient response, time post-transplant , co-administrati on of other drugs, an d drug formulation. Th e following troug h range is a suggested guideline: 5.0- 20.0 mcg/L. This macrina t was developed and i ts analytical perf ormance characteristics have been determined by [facility]. It has not been cl eared or approved by theA. This assay has been validated pursu ant to the CLIA regula tions and is used for clinical purpos es. JOSEFA (test FASTING:YES code = JOSEFA) FASTING: YES RAC (test Performing code = RAC) Organization Information: Site ID: [facility] Address: [address] [place] [address] Director: Dr. Fran Guajardo [facility] METABOLIC PANEL, [id number] 19:13:00 Test Item Value Reference Interpretation Comments Range Glucose (test code 104 mg/dL 65-99 H Fasting reference = 2345-7) interval For so meone without known diabetes, a glu cose valuebetween 10 0 and 125 mg/dL is consistent withprediabetes and should be confi rmed with afollow-up test. BUN (test code = 22 mg/dL 7- 3094-0) Creatinine (test 1.28 mg/dL 0.7-1.33 For patient s >49 code = 2160-0) years of age, the reference limit for Creatinine is approximately 1 3% higher for peopleidentifie d as -Leonor n. EGFR Non-Afr. See_Comment [Automated me ssage] Bahamian (test code The syst em which = 8205) generated this result transmit rodrigo reference range : > OR = 60 mL/min/1.73m2. The reference range was not used to interpret this result as normal/abnormal . EGFR See_Comment [Automated mes dhruv] Bahamian (test code The syst em which = 9907) generated this result transmit rodrigo reference range [...] . Sodium (test code = 139 mmol/L 923-541 9292-2) Potassium (test 4.8 mmol/L 3.4-4.8 code = 2823-3) Chloride (test code 107 mmol/L 98-110 = 2075-0) CO2 (test code = 20 mmol/L 20-32 2027-9) Calcium (test code 9.8 mg/dL 8.6-10.3 = 09184-5) JOSEFA (test code = FASTING:YES JOSEFA) FASTING: YES RAC (test code = Performing RAC) Organization Information: Site ID: [facility] Name: [facility] Address: [address] [place] [address] Director: Fran Guajardo Lab Interpretation Abnormal (test code = 43356-1) [facility]osphatidylethanol, [id number] 19:13:00 Test Item Value Reference Interpretation Comments Range Phosphatidylethan 600 ng/mL H Reporting Limit: 20 ng/mL ol, blood (test Synonym(s): Phosphatidyl code = 45546-6) Ethanol; PethPhosphatidy lethanol (PEth) is an ethanol-derived [...] and i ts performance characteristics determined by [facility]. It has not been cleared or approved by the US Food and Drug Administration. JOSEFA (test code = FASTING:YES JOSEFA) FASTING: YES RAC (test code = Performing RAC) Organization Information: Site ID: [id number] Name: [facility] Address: [address] [place] [address] Director: Fran rBar PH.D, F-AB Lab Abnormal Interpretation (test code = 22314-8) [facility] Hospital[facility]atic function [id number] 19:13:00 Test Item Value Reference Range Interpretation Comments Protein (test code = 7.3 g/dL 6.1-8.1 2885-2) Albumin, S (test 4.2 g/dL 3.6-5.1 code = 1751-7) Globulin, total See_Comment [Automated (test code = message] The ) system which generated this result transmitted reference range : 1.9 - 3.7 g/dL (calc). The reference range was not used to interpret this result as normal/abnormal . Albumin/globulin See_Comment [Automated ratio (test code = message] The ) system which generated this result transmitted reference range : 1.0 - 2.5 (calc ). The reference range was not used to interpr et this result as normal/abnormal . Total bilirubin 0.6 mg/dL 0.2-1.2 (test code = 1974-07) Bilirubin direct 0.2 mg/dL See_Comment [Automated (test code = 1967-12) message ] The system which generated this result transmitted reference range : < OR = 0.2. The reference range was not used to interpret this result as normal/abnormal . Bilirubin, indirect See_Comment [Automa rodrigo (test code = 1970-06) message ] The system which generated this result transmitted reference range : 0.2 - 1.2 mg/dL (calc). The reference range was not used to interpret this result as normal/abnormal . Alkaline phosphatase 126 U/L 35-144 (test code = 6768-6) AST (test code = 61 U/L 10-35 H 1920-8) ALT (test code = 68 U/L 9-46 H 1742-6) JOSEFA (test code = FASTING:YES JOSEFA) FASTING: YES RAC (test code = Performing RAC) Organization Information: Site ID: [facility] Address: [address] [place] [address] Director: Fran Guajardo Lab Interpretation Abnormal (test code = 88632-0) [facility]2022-06-14 19:13:00 Test Item Value Reference Range Interpretation Comments Magnesium (test code 2.0 mg/dL 1.5-2.5 = 01895-1) JOSEFA (test code = JOSEFA) FASTING:YES FASTING: YES RAC (test code = RAC) Performing Organization Information: Site ID: [facility] Name: [facility] Address: [address] [place] [address] Director: Fran Guajardo [facility] with platelet and [id number] 19:13:00 Test Item Value Reference Range Interpretation Comments WBC (test code = See_Comment [Automated 6690-2) message] The system which generated this result [...] = Performing RAC) Organization Information: Site ID: [facility] Address: [address] [place] [address] Director: Fran Guajardo Lab Interpretation Abnormal (test code = 75589-9) [facility] with [id number] 19:13:00 Test Item Value Reference Range Interpretation Comments INR (test code = Reference R marlo 6301-6) 0.9-1.1Moderate -i ntensity Warfar in Therapy 2.0-3.0Higher-i nt ensity Warfarin Therapy 3.0-4.0 Prothrombin time See_Comment For additio nal (test code = information, 5902-2) please refer tohttp://educat io n.OneflarediagnBoundarycom/faq/FAQ10 4( This link is being provided for informational/e du cational purpos es only.) [Automat ed message] The system which generated this result transmitted reference range : 9.0 - 11.5 sec. The reference range was not used to interpr et this result as normal/abnormal . JOSEFA (test code = FASTING:YES JOSEFA) FASTING: YES RAC (test code = Performing RAC) Organization Information: Site ID: [facility] Name: [facility] Address: [address] [place] [address] Director: Fran Guajardo [facility] Tacrolimus level, [id number] 19:13:00 Test Item Value Reference Range Interpretation Comments Tacrolimus, mcg/L No definitive highly therapeutic or toxic sensitive, ranges have LC/MS/MS beenestablished . (test code = Optimal blood d rug 75279-3) levels are influencedby ty pe of transplant, pat ient response, time post-transplant , co-administrati on of other drugs, an d drug formulation. Th e following troug h range is a suggested guideline: 5.0- 20.0 mcg/L. This macrina t was developed and i ts analytical perf ormance characteristics have been determined by [facility]. It has not been cl eared or approved by theA. This assay has been validated pursu ant to the CLIA regula tions and is used for clinical purpos es. JOSEFA (test FASTING:YES code = JOSEFA) FASTING: YES RAC (test Performing code = RAC) Organization Information: Site ID: [facility] Address: [address] [place] [address] Director: Dr. Fran Guajardo [facility] HospitalBASI METABOLIC PANEL, [id number] 19:13:00 Test Item Value Reference Interpretation Comments [...] n. EGFR Non-Afr. See_Comment [Automated me ssage] Bahamian (test code The syst em which = 3336) generated this result transmit rodrigo reference range : > OR = 60 mL/min/1.73m2. The reference range was not used to interpret this result as normal/abnormal . EGFR See_Comment [Automated mes dhruv] Bahamian (test code The syst em which = 2774) generated this result transmit rodrigo reference range [...] . Sodium (test code = 139 mmol/L 625-020 8281-2) Potassium (test 4.8 mmol/L 3.4-4.8 code = 2823-3) Chloride (test code 107 mmol/L 98-110 = 2075-0) CO2 (test code = 20 mmol/L 20-32 2027-9) Calcium (test code 9.8 mg/dL 8.6-10.3 = 36381-4) JOSEFA (test code = FASTING:YES JOSEFA) FASTING: YES RAC (test code = Performing RAC) Organization Information: Site ID: [facility] Address: [address] [place] [address] Director: Fran Guajardo Lab Interpretation Abnormal (test code = 21326-1) [facility] HospitalPhosphatidylethanol, [id number] 19:13:00 Test Item Value Reference Interpretation Comments Range Phosphatidylethan 600 ng/mL H Reporting Limit: 20 ng/mL ol, blood (test Synonym(s): Phosphatidyl code = 87146-4) Ethanol; PethPhosphatidy lethanol (PEth) is an ethanol-derived [...] and i ts performance characteristics determined by [facility]. It has not been cleared or approved by the US Food and Drug Administration. JOSEFA (test code = FASTING:YES JOSEFA) FASTING: YES RAC (test code = Performing RAC) Organization Information: Site ID: [id number] Name: [facility] Address: [address] [place] [address] Director: Fran Brar PH.D, -[facility] Lab Abnormal Interpretation (test code = 86312-3) [facility] metabolic [id number] 01:17:00 Test Item Value Reference Interpretation Comments Range Glucose (test code 110 mg/dL 65-99 H Fasting reference = 2345-7) interval For so meone without known diabetes, a glu cose valuebetween 10 0 and 125 mg/dL is consistent withprediabetes and should be confi rmed with afollow-up test. BUN (test code = 19 mg/dL 01-12 3094-0) Creatinine (test 2.12 mg/dL 0.70-1.33 H For patient s >49 code = 2160-0) years of age, the reference limit for Creatinine is approximately 1 3% higher for peopleidentifie d as -Leonor n. EGFR Non-Afr. See_Comment L [Automated me ssage] Bahamian (test code The syst em which = 2775) generated this result transmit rodrigo reference range : > OR = 60 mL/min/1.73m2. The reference range was not used to interpret this result as normal/abnormal . EGFR See_Comment L [Automated mes dhruv] Bahamian (test code The syst em which = 2774) generated this result transmit rodrigo reference range [...] . Sodium (test code = 138 mmol/L 500-584 8815-2) Potassium (test 4.9 mmol/L 3.5-5.3 code = 2823-3) Chloride (test code 106 mmol/L 98-110 = 2075-0) CO2 (test code = 26 mmol/L 20-32 2027-9) Calcium (test code 8.8 mg/dL 8.6-10.3 = 55292-7) Protein (test code 6.4 g/dL 6.1-8.1 = 2885-2) Albumin, S (test 3.8 g/dL 3.6-5.1 code = 1751-7) Globulin, total See_Comment [Automated message] (test code = [place] [address]-8) generated this result transmit rodrigo reference range : 1.9 - 3.7 g/dL (jose eduardo c). The reference r marlo was not used to interpret this result as normal/abnormal . Albumin/globulin See_Comment [Automated message] ratio (test code = The syste m which 1758-0) generated this result transmit rodrigo reference range [...] = Performing RAC) Organization Information: Site ID: [facility] Address: [address] [place] [address] Director: Fran Guajardo Lab Interpretation Abnormal (test code = 35469-7) [facility] [id number] 01:17:00 Test Item Value Reference Range Interpretation Comments Magnesium (test code 2.1 mg/dL 1.5-2.5 = 36321-9) JOSEFA (test code = JOSEFA) FASTING:YES FASTING: YES RAC (test code = RAC) Performing Organization Information: Site ID: [facility] Name: [facility] Address: [address] [place] [address] Director: Fran Guajardo [facility] with platelet and [id number] 01:17:00 Test Item Value Reference Range Interpretation Comments WBC (test code = See_Comment [Automated 6690-2) message] The system which generated this result [...] = Performing RAC) Organization Information: Site ID: [facility] Address: [address] [place], [place] [address] Director: Fran Guajardo Lab Interpretation Abnormal (test code = 83417-9) [facility] Hospital[facility]th[facility] time with [id number] 01:17:00 Test Item Value Reference Range Interpretation Comments INR (test code = Reference R marlo 6301-6) 0.9-1.1Moderate -i ntensity Warfar in Therapy 2.0-3.0Higher-i nt ensity Warfarin Therapy 3.0-4.0 Prothrombin time See_Comment For additio nal (test code = information, 5902-2) please refer tohttp://educat io n.Oneflarediagnost [employer]/faq/FAQ10 4( This link is being provided for informational/e du cational purpos es only.) [Automat ed message] The system which generated this result transmitted reference range : 9.0 - 11.5 sec. The reference range was not used to interpr et this result as normal/abnormal . JOSEFA (test code = FASTING:YES JOSEFA) FASTING: YES RAC (test code = Performing RAC) Organization Information: Site ID: [facility] Name: [facility] Address: [address] [place] [address] Director: Fran Guajardo [facility] Tacrolimus level, [id number] 01:17:00 Test Item Value Reference Range Interpretation Comments Tacrolimus, mcg/L No definitive highly therapeutic or toxic sensitive, ranges have LC/MS/MS beenestablished . (test code = Optimal blood d rug 24819-8) levels are influencedby ty pe of transplant, pat ient response, time post-transplant , co-administrati on of other drugs, an d drug formulation. Th e following troug h range is a suggested guideline: 5.0- 20.0 mcg/L. This macrina t was developed and i ts analytical perf ormance characteristics have been determined by [employer] . It has not been cl eared or approved by theA. This assay has been validated pursu ant to the CLIA regula tions and is used for clinical purpos es. JOSEFA (test FASTING:YES code = JOSEFA) FASTING: YES RAC (test Performing code = RAC) Organization Information: Site ID: [facility] Address: [address] [place] [address] Director: Dr. Fran Guajardo [facility] HospitalPhosphatidylethanol, [id number] 22:55:00 Test Item Value Reference Interpretation Comments Range Phosphatidylethan 970 ng/mL H Reporting Limit: 20 ng/mL ol, blood (test Synonym(s): Phosphatidyl code = 83163-7) Ethanol; PET H; PethPhosphatidy lethanol (PEth) is [...] and i ts performance characteristics determined by [facility]. It has not been cleared or approved by the US Food and Drug Administration. JOSEFA (test code = FASTING:YES JOSEFA) FASTING: YES RAC (test code = Performing RAC) Organization Information: Site ID: [id number] Name: [facility] Address: [address] [place] [address] [place] [address] Director: Fran Brar PH.D, F-[facility] Lab Abnormal Interpretation (test code = 72874-3) [facility]
--- NOTE | 2022-03-20 03:21 | ER ---
Nurse's Notes [facility] Name: Javier aSravia Age: 61 yrs Sex: Male : 1960 Arrival Date: 03/20/2022 Time: 03:07 Bed 14 Private MD: Diagnosis: Encounter for removal of sutures-Not ready for removal;Cellulitis of right lower limb Presentation: 03/20 03:16 Chief complaint: Patient states: pt had a laceration repair to right medial ankle 10 as6 days ago and is here for a suture removal. Coronavirus screen: At this time, the client does not indicate any symptoms associated with coronavirus-19. Ebola Screen: No symptoms or risks identified at this time. Initial Sepsis Screen: Does the patient meet any 2 criteria? No. Patient's initial sepsis screen is negative. Does the patient have a suspected source of infection? No. Patient's initial sepsis screen is negative. Risk Assessment: Do you want to hurt yourself or someone else? Patient reports no desire to harm self or others. Onset of symptoms was March 10, 2022. 03:16 Method Of Arrival: Ambulatory as6 03:16 Acuity: RD 5 as6 Historical: - Allergies: 03:18 No Known Allergies; as6 - Home Meds: 03:18 amlodipine 5 mg tab 1 tab once daily [Active]; Otezla 30 mg Oral tab 1 tab 2 times per as6 day [Active]; magnesium oxide 400 mg (241.3 mg magnesium) Oral tab daily [Active]; losartan 50 mg Oral tab 1 tab once daily [Active]; gabapentin 300 mg Oral cap 1 cap in the evening [Active]; Vitamin D Oral 18343 unit [Active]; CellCept 500 mg Oral tab 1 tabs 2 times per day [Active]; rosuvastatin 20 mg Oral cpSP 1 cap once daily [Active]; tacrolimus 1 mg Oral Tb24 2 tabs once daily [Active]; - PMHx: 03:18 Cirrhosis; Hypertension; psoriasis; as6 - PSHx: 03:18 liver transplant; as6 - Immunization history:: Client reports having NOT received the Covid vaccine. - Social history:: Smoking status: Patient denies any tobacco usage or history of. - Family history:: not pertinent. - Hospitalizations: : No recent hospitalization is reported. Screenin:19 Abuse screen: Denies threats or abuse. Denies injuries from another. Nutritional aa9 screening: No deficits noted. Tuberculosis screening: No symptoms or risk factors identified. Fall Risk None identified. 03:19 Abuse screen: Denies threats or abuse. Denies injuries from another. Nutritional as6 screening: No deficits noted. Tuberculosis screening: No symptoms or risk factors identified. Fall Risk None identified. Assessment: 03:16 General: Appears comfortable, Behavior is cooperative, appropriate for age. Pain: aa9 Complains of pain in right ankle Pain currently is 2 out of 10 on a pain scale. Neuro: Level of Consciousness is awake, alert, obeys commands, Oriented to person, place, time, situation. Cardiovascular: Patient's skin is warm and dry. Respiratory: Respiratory effort is even, unlabored. Derm: Wound noted right ankle Wound is C shape, stitched up 10 days ago. Vital Signs: 03:16 BP 139 / 84; Pulse 79; Resp 18 S; Temp 97.9(O); Pulse Ox 96% on R/A; Weight 111.13 kg as6 (R); Height 5 ft. 8 in. (172.72 cm) (R); Pain 2/10; 03:25 BP 118 / 73; Pulse 67; Resp 17 S; Pulse Ox 93% on R/A; aa9 03:16 Body Mass Index 37.25 (111.13 kg, 172.72 cm) as6 ED Course: 03:07 Patient arrived in ED. ja2 03:07 Daisy Kennedy, RN is Primary Nurse. aa9 03:08 Slim Fuchs MD is Attending Physician. rn 03:18 Triage completed. as6 03:19 Arm band placed on. as6 03:19 Bed in low position. Call light in reach. Side rails up X 1. as6 03:19 Allergy band placed. Bed in low position. Side rails up X2. aa9 03:31 No provider procedures requiring assistance completed. Patient did not have IV access aa9 during this emergency room visit. Administered Medications: No medications were administered Medication: 03:19 VIS not applicable for this client. aa9 Outcome: 03:20 Discharge ordered by . rn 03:32 Discharged to home ambulatory. aa9 03:32 Condition: stable 03:32 Discharge instructions given to patient, Instructed on discharge instructions, follow up and referral plans. medication usage, Demonstrated understanding of instructions, follow-up care, medications, Prescriptions given X 1. 03:32 Patient left the ED. aa9 Signatures: Slim Fuchs MD MD rn Alexander, Jessica ja2 Slawson, Ashby, RN RN as6 Daisy Kennedy RN RN aa9
--- NOTE | 2022-03-20 03:21 | EDPHYS ---
Physician Documentation [facility] Name: Javier Saravia Age: 61 yrs Sex: Male : 1960 Arrival Date: 03/20/2022 Time: 03:07 Bed 14 Private MD: ED Physician Slim Fuchs HPI: 03/20 03:24 This 61 yrs old Male presents to ER via Ambulatory with complaints of Suture rn Removal. 03:24 The patient has sutures on the right ankle. Previous treatment: The patient was rn initially treated 11 day(s) ago. Sutures/sarthak progress: The patient's wound displays bleeding at site, redness at site. The patient has not experienced similar symptoms in the past. The patient has been recently seen at the [facility] Emergency Department. Historical: - Allergies: 03:18 No Known Allergies; as6 - Home Meds: 03:18 amlodipine 5 mg tab 1 tab once daily [Active]; Otezla 30 mg Oral tab 1 tab 2 times per as6 day [Active]; magnesium oxide 400 mg (241.3 mg magnesium) Oral tab daily [Active]; losartan 50 mg Oral tab 1 tab once daily [Active]; gabapentin 300 mg Oral cap 1 cap in the evening [Active]; Vitamin D Oral 74667 unit [Active]; CellCept 500 mg Oral tab 1 tabs 2 times per day [Active]; rosuvastatin 20 mg Oral cpSP 1 cap once daily [Active]; tacrolimus 1 mg Oral Tb24 2 tabs once daily [Active]; - PMHx: 03:18 Cirrhosis; Hypertension; psoriasis; as6 - PSHx: 03:18 liver transplant; as6 - Immunization history:: Client reports having NOT received the Covid vaccine. - Social history:: Smoking status: Patient denies any tobacco usage or history of. - Family history:: not pertinent. - Hospitalizations: : No recent hospitalization is reported. ROS: 03:24 Constitutional: Negative for fever, chills, and weight loss, MS/Extremity: + still rn bleeding from wound Exam: 03:24 Constitutional: This is a well developed, well nourished patient who is awake, alert, rn and in no acute distress. MS/ Extremity: Pulses equal, no cyanosis. Neurovascular intact. RLE with medial ankle wound, will moist and wound edges not healed. Mild erythema surrounding wound. No fluctuance or purulence. Vital Signs: 03:16 BP 139 / 84; Pulse 79; Resp 18 S; Temp 97.9(O); Pulse Ox 96% on R/A; Weight 111.13 kg as6 (R); Height 5 ft. 8 in. (172.72 cm) (R); Pain 2/10; 03:25 BP 118 / 73; Pulse 67; Resp 17 S; Pulse Ox 93% on R/A; aa9 03:16 Body Mass Index 37.25 (111.13 kg, 172.72 cm) as6 MDM: 03:08 Patient medically screened. rn 03:24 Data reviewed: vital signs, nurses notes, old medical records, and as a result, I will inpatient services rn patient. Special discussion: I discussed with the patient/guardian in detail that at this point there is no indication for admission to the hospital. It is understood, however, that if the symptoms persist or worsen the patient needs to return immediately for re-evaluation. ED course: Wound needs more time to heal. Will prescribe abx for possible cellulitis. . Administered Medications: No medications were administered Disposition Summary: 03/20/22 03:20 Discharge Ordered Location: Home rn Problem: new rn Symptoms: have improved rn Condition: Stable rn Diagnosis - Encounter for removal of sutures - Not ready for removal rn - Cellulitis of right lower limb rn Followup: rn - With: Emergency Department - When: 1 week - Reason: Wound Recheck, Staple/Suture removal Discharge Instructions: - Discharge Summary Sheet rn - Cellulitis, Adult rn - How to Change Your Wound Dressing rn - Sutures, Kersey, or Adhesive Wound Closure rn Forms: - Medication Reconciliation Form rn - Thank You Letter rn - Antibiotic supervisor blast [employer] - Prescription Opioid Use rn Prescriptions: - Clindamycin HCl 300 mg Oral Capsule - take 1 capsule by ORAL route every 6 hours for 10 days; 40 capsule; Refills: 0, rn Product Selection Permitted Signatures: Slim Fuchs MD MD rn Slawson, Ashby, RN RN as6
[2022-03-20 23:32] VITALS: TEMP 97.9
[2022-03-20 23:36] VITALS: BP 118/73; O2SAT 93
== END 2022-03-20 03:32 | disposition home or self-care (01) ==
LOC: ER 03:03
DX: L03.115 Cellulitis of right lower limb (principal)
CPT/HCPCS: 99282

== ENCOUNTER 2023-03-28 20:19 | Emergency (ER) | payer OTHER ==
--- OUTSIDE RECORDS SUMMARY | 2023-03-28 20:23 | XMS REPORT | Clinical Summary ---
:1960 Author Organization [facility] MD [facility] Address [address] [place] [address] Care Team Providers Name Role Phone Enrike Beltran MD Unavailable Allergies Not on File Medications Not on file Active Problems Not on file Social History Tobacco Use Types Packs/Day Years Used Date Smoking Tobacco: Never Assessed Sex Assigned at Date Recorded Not on file Last Filed Vital Signs Not on file Plan of Treatment Not on file Results Not on fileafter 03/28/2022 Insurance Payer Benefit Plan / Subscriber ID Effective Phone Address T ype Group Dates [facility] MEDICARE [id number] 2018-Prese [address] [address] Medicare HEALTHCARE ADVANTAGE [place], [place] [id number] Care Teams Supervisor Pipelines Relationship Specialty Start Date End Date Enrike Beltran PCP - External Referring Orthopedic Surgery 02/15 MD [facility] [address] [facility] [address] [place] [id number]
--- OUTSIDE RECORDS SUMMARY | 2023-03-28 20:26 | XMS REPORT | Continuity of Care Document ---
:1960 Author Organization [facility] t Address [address] [facility] [address] [place] [address] Care Team Providers Name Role Phone Magdaleno Eric Primary Care Physician Roland Feng RN Attending Clinician Unavailable Reynaldo Bah MD Attending Clinician Lauryn Clayton MA Attending Clinician Unavailable Tonja CORONA PhD, Tonie Attending Clinician Laisha Torres Attending Clinician Unavailable Ashely Granados LMSW Attending Clinician Unavailable Mari Hubbard RN Attending Clinician Unavailable Annamaria Garland MA Attending Clinician Unavailable Aime Cortez MD Attending Clinician LUIS MIGUEL VAZQUEZ Attending Clinician Unavailable Stephanie Ambrose Attending Clinician Unavailable Natalia Domingo LMSW Attending Clinician Unavailable Jamarcus Phillips PA-C Attending Clinician Therapy, [facility] Attending Clinician Unavailable Av Miguel MD Attending Clinician AV MIGUEL Attending Clinician Unavailable Doctor Unassigned, [place] Attending Clinician Unavailable Kerline Bryant LCSW Attending Clinician Unavailable Nat Sanchez Attending Clinician Unavailable Henny Lozoya RN Attending Clinician Unavailable Polina Salas MA Attending Clinician Unavailable Pickering, Yuli D. Attending Clinician Unavailable Pepper Jocelyn MALDONADO Attending Clinician Unavailable Lavonne CORONA, Shant Cazares Attending Clinician Cleo Muse MA Attending Clinician Unavailable Rene Steele Attending Clinician Richy Almaguer MD Attending Clinician [phone] [address] [place] Attending Clinician Unavailable Therapy, [facility] Attending Clinician Unavailable Richy Coyne MD Attending Clinician JERMAIN DOBBS Attending Clinician Unavailable ALVARO MALONE Attending Clinician Unavailable DORI GAMEZ Attending Clinician Unavailable CHUYITA COLLINS Attending Clinician Unavailable Payers Payer Name Policy Type Policy Number Effective Date Expiration Date Nakul FORD MEDICARE OUT [id number] 2019 OF NETWORK 00:00:00 Problems Condition Condition [...] spita lower lower 00 l extremity extremity [id number] Disease Active Methodi 03-19 00:00: Hospita 00 [...] transplant transplant st ed ed Hospita l [facility] cook starch Disease Active Met 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 current st [...] of DERIVED 00:00: [place] 00 [facility] Branch Ayshafis Propensi Active Unknown - Uni vers h ty to See comments 06-25 ity of Derived adverse 00:00: [place] reaction 00 Medical s Branch Shellfis Propensi Active Method i h ty to 06-25 Derived adverse 00:00: Hospita reaction 00 l s to drug Codeine Propensi Active Nausea Only 2015-06 Me thodi ty to 06-23 st adverse 00:00: Hospita reaction 00 l s to drug Codeine Drug Active [facility] CODEINE Allergy Active [facility] CODEINE DRUG Active NAUSEA ONLY Univ ers INGREDI 4-20 ity of 00:00: [place] 00 Medical Branch NO KNOWN Drug Active Univers ALLERGIE Class [facility] [place] [facility] Family History Family Member Diagnosis Comments Start Date Stop Date Source Natural sister Arthritis [facility] Natural brother Diabetes [facility] Natural father Mental illness [facility] Natural mother Diabetes [facility] Natural mother Kidney disease [facility] Natural mother Stroke [facility] Social History Social Habit Start Date Stop Date Quantity Comments Source Sexual orientation [facility] History SDOH [facility] Alcohol Frequency Hospita l History SDOH [facility] Alcohol Std Drinks Hospit al History SDOH [facility] Alcohol intake 2022-09-19 2022-09-19 Current [facility] 00:00:00 00:00:00 non-drinker of Medical Ce nter alcohol (finding) History of Social 2022-08-24 2022-08-[address] function 00:00:00 00:00:00 Hospital Alcohol Comment 2018-08-23 2018-08-23 previously [facility] 00:[facility] 00:00:00 alcoholic, quit Hospital drinking 03/2008 Tobacco use and 2017-10-26 2017-10-26 Smokeless tobacco [facility] exposure 00:00:00 00:00:00 non-user Hospital Sex Assigned At [birth year] [facility] 00:00:00 00:00:00 Medical Center Smoking Status Start Date Stop Date Source Tobacco smoking consumption Univ [facility] unknown Branch Never smoked tobacco [facility] Medications Ordered Filled Start Stop Current Ordering Indication Dosage Frequency Signature Comments Components Source Medication Medication Date Date Medication? Clinician (SIG) Name Name cece 2023- No [id number] Q7D Take 1 M ethodi rol 2-[address] (VITAMIN 00:00: 05:59 (50,000 Hospi ta D2) 50,000 00 :00 Units l unit total) by capsule mouth once a week. mycophenola 2023- No [id number] 500mg Q.5D Take 1 [facility] te 2-10 -[address] (CELLCEPT) 00:00: 05:59 (500 mg Hos [facility] francisco 500 mg 00 :00 total) by l tablet mouth 2 (two) times a day. mycophenola 2022- No [id number] 500mg Q.5D Take 1 Methodi te 2-03 22-[address] (CELLCEPT) 00:00: 00:00 (500 mg Hos [facility] francisco 500 mg 00 :00 total) by l tablet mouth 2 (two) times a day. mycophenola 2022- No [id number] 500mg Q.5D Take 1 Methodi te 2- 02-[address] (CELLCEPT) 00:00: 00:00 (500 mg Hos [facility] francisco 500 mg 00 :00 total) by l tablet mouth 2 (two) times a day. tacrolimus 2021-06- No [id number] 2mg Q.5D Take 2 [facility]i (PROGRAF) 1 1-21 12-[address] MG capsule 00:00: 05:59 (2 mg Hospi ta 00 :00 total) by l mouth 2 (two) times a day. tacrolimus Yes [id number] Take 2 [facility] (PROGRAF) 1 3-[address] MG capsule 00:00: (2 mg Hospit a 00 total) by l mouth every morning AND 1 capsule (1 mg total) every evening. tacrolimus Yes [id number] Take 2 [facility] (PROGRAF) 1 3-[address] MG capsule 00:00: (2 mg Hospit a 00 total) by l mouth every morning AND 1 capsule (1 mg total) every evening. tacrolimus 0 Yes [id number] Take 2 [facility] (PROGRAF) 1 3-[address] MG capsule 00:00: (2 mg Hospit a 00 total) by l mouth every morning AND 1 capsule (1 mg total) every evening. tacrolimus 2021- No [id number] Take 2 [facility] (PROGRAF) 1 3-03 11-[address] MG capsule 00:00: 00:00 (2 mg Hospi ta 00 :00 total) by l mouth every morning AND 1 capsule (1 mg total) every evening. ergocalcife 2021-0 3- No [id number] Q7D Take 1 M ethodi rol 07-28- capsule st (VITAMIN 00:00: 00:00 (50,000 Hospi ta D2) 50,000 00 :00 Units l unit total) by capsule mouth once a week. ergocalcife 2021-0 2023- No [id number] Q7D Take 1 M ethodi rol 2- capsule st (VITAMIN 00:00: 05:59 (50,000 Hospi ta D2) 50,000 00 :00 Units l unit total) by capsule mouth once a week. ergocalcife 2021-0 2023- No [id number] Q7D Take 1 M ethodi rol 07-[address] (VITAMIN 00:00: 05:59 (50,000 Hospi ta D2) 50,000 00 :00 Units l unit total) by capsule mouth once a week. ergocalcife 2021-0 2022- No [id number] Q7D Take 1 M ethodi rol 07-28 [...] A l tablet DAY acetaminoph 2020-06- [place] [id number] chronic M ethodi en-codeine -08-[address] (TYLENOL 00:00: 05:59 ONE TABLET Ho spita WITH 00 :00 BY MOUTH l CODEINE #3) THREE 300-30 mg TIMES A per tablet DAY FOR 10 DAYS acetaminoph 2020-06- No [id number] chronic M ethodi en-codeine -08-[address] (TYLENOL 00:00: 05:59 ONE TABLET Ho spita WITH 00 :00 BY MOUTH l CODEINE #3) THREE 300-30 mg TIMES A per tablet DAY FOR 10 DAYS acetaminoph 2020-06- No [id number] chronic M ethodi en-codeine -08-[address] (TYLENOL 00:00: 05:59 ONE TABLET Ho spita WITH 00 :00 BY MOUTH l CODEINE #3) THREE 300-30 mg TIMES A per tablet DAY FOR 10 DAYS acetamino 2020-06- [place] [id number] chronic M ethodi en-codeine 08-[address] (TYLENOL 00:00: 05:59 ONE TABLET Ho spita WITH 00 :00 BY MOUTH l CODEINE #3) THREE 300-30 mg TIMES A per tablet DAY FOR 10 DAYS casirivimab 2020-06- No [id number] 1200mg 1,200 mg, Univers 600 08-08 IV ity of mg-imdevima 20:00: 15:00 Infusion, [place] b 600 mg 00 :00 ONCE, Medical (REGEN-COV Administer [facility] ([facility])) 1200 over 20 mg in 60 [...] temperatur e. &nbs p;
tacrolimus 2023- No [id number] 2mg Q.5D Take 2 [facility] (PROGRAF) 1 03-[address] MG capsule 00:00: 04:59 (2 mg Hospi ta 00 :00 total) by l mouth 2 (two) times a day. tacrolimus 2021- No [id number] 2mg Q.5D Take 2 [facility] (PROGRAF) 1 03-18- capsules st MG capsule 00:00: 00:00 (2 mg Hospi ta 00 :00 total) by l mouth 2 (two) times a day. tacrolimus 2021- No [id number] 2mg Q.5D Take 2 [facility] (PROGRAF) 1 03-18- capsules st MG capsule 00:00: 00:00 (2 mg Hospi ta 00 :00 total) by l mouth 2 (two) times a day. tacrolimus 2021- No [id number] 2mg Q.5D Take 2 [facility] (PROGRAF) 1 03-[address] MG capsule 00:00: 00:00 (2 mg Hospi ta 00 :00 total) by l mouth 2 (two) times a day. tacrolimus 2020- No [id number] 2mg Q.5D Take 2 [facility] (PROGRAF) 1 03-[address] MG capsule 00:00: 00:00 (2 mg Hospi ta 00 :00 total) by l mouth 2 (two) times a day. tacrolimus 2020- No [id number] 2mg Q.5D Take 2 [facility] (PROGRAF) 1 03-[address] MG capsule 00:00: 00:00 (2 mg Hospi ta 00 :00 total) by l mouth 2 (two) times a day. mycophenola 2020-0 Yes [id number] 500mg Q.5D Take 1 Methodi te 9-[address] (CELLCEPT) 00:00: (500 mg [facility] 500 mg 00 total) by l tablet mouth 2 (two) times a day. mycophenola 2020-0 Yes [id number] 500mg Q.5D Take 1 Methodi te 9-[address] (CELLCEPT) 00:00: (500 mg [facility] 500 mg 00 total) by l tablet mouth 2 (two) times a day. mycophenola Yes [id number] 500mg Q.5D Take 1 Methodi te 02-[address] (CELLCEPT) 00:00: (500 mg [facility] 500 mg 00 total) by l tablet mouth 2 (two) times a day. mycophenola 3- No [id number] 500mg Q.5D Take 1 Methodi te 02-[address] (CELLCEPT) 00:00: 00:00 (500 mg Hos [facility] francisco 500 mg 00 :00 total) by l tablet mouth 2 (two) times a day. mycophenola 2- No [id number] 500mg Q.5D Take 1 Methodi te 02-19 [...] oral route [place] 10 [place] [id number] chronic M ethodi en-codeine 6-15 12-[address] (TYLENOL 00:00: 00:00 Tylenol-Co Ho spita WITH 00 :00 deine #3 l CODEINE #3) 300 mg-30 300-30 mg mg tablet per tablet Take 1 tablet 3 times a day by oral route for 10 days. acetaminoph 2020- [place] [id number] chronic M ethodi en-codeine 6-15 12-[address] (TYLENOL 00:00: 00:00 Tylenol-Co Ho spita WITH 00 :00 deine #3 l CODEINE #3) 300 mg-30 300-30 mg mg tablet per tablet Take 1 tablet 3 times a day by oral route for 10 days. acetaminoph 2020- [place] [id number] chronic M ethodi en-codeine 6-15 12-[address] (TYLENOL 00:00: 00:00 Tylenol-Co Ho spita WITH 00 :00 deine #3 l CODEINE #3) 300 mg-30 300-30 mg mg tablet per tablet Take 1 tablet 3 times a day by oral route for 10 days. acetaminoph 2020- No [id number] chronic M ethodi en-codeine 12-03 12-[address] (TYLENOL 00:00: 00:00 Tylenol-Co [...] times a day. gabapentin 2021- No 300mg Q.[id number] Take 1 [facility] (NEURONTIN) 09-[id number] 300 mg 00:00: 04:59 3D (300 mg Hospita capsule 00 :00 total) by l mouth 3 (three) times a day. gabapentin 2021- No 300mg Q.[id number] Take 1 [facility] (NEURONTIN) 09-10- [id number] capsule st 300 mg 00:00: 04:59 3D (300 mg Hospita capsule 00 :00 total) by l mouth 3 (three) times a day. gabapentin 2021- No 300mg Q.[id number] Take 1 [facility] (NEURONTIN) 09-10- [id number] capsule st 300 mg 00:00: :59 3D (300 mg Hospita capsule 00 :00 total) by l mouth 3 (three) times a day. gabapentin 2021- No 300mg Q.[id number] Take 1 [facility] (NEURONTIN) 09-10- [id number] capsule st 300 mg 00:00: :59 3D (300 mg Hospita capsule 00 :00 total) by l mouth 3 (three) times a day. gabapentin 2020- No 300mg Q.[id number] Take 1 [facility] (NEURONTIN) 09-10- [id number] capsule st 300 mg 00:00: 00:00 3D (300 mg Hospita capsule 00 :00 total) by l mouth 3 (three) times a day. rosuvastati Yes [id number] 20mg QD Take 1 Methodi n (CRESTOR) 3-04 tablet (20 st 20 mg 00:00: mg total) Hospita tablet 00 by mouth l every evening. rosuvastati Yes [id number] 20mg QD Take 1 Methodi n (CRESTOR) 3-04 tablet (20 st 20 mg 00:00: mg total) Hospita tablet 00 by mouth l every evening. rosuvastati Yes [id number] 20mg QD Take 1 Methodi n (CRESTOR) 3-04 tablet (20 st 20 mg 00:00: mg total) Hospita tablet 00 by mouth l every evening. rosuvastati Yes [id number] 20mg QD Take 1 Methodi n (CRESTOR) 3-04 tablet (20 st 20 mg 00:00: mg total) Hospita tablet 00 by mouth l every evening. tacrolimus 2021- No [id number] .5mg Q.5D Take 1 [facility] (PROGRAF) 3- 03-[address] 0.5 MG 00:00: 05:59 (0.5 mg Hospita capsule 00 :00 total) by l mouth 2 (two) times a day. rosuvastati 2021- No [id number] 20mg QD Take 1 Methodi n (CRESTOR) 3- 03-05 tablet (20 s t 20 mg 00:00: 05:59 mg total) Hospit a tablet 00 :00 by mouth l every evening. tacrolimus 2021- No [id number] .5mg Q.5D Take 1 [facility] (PROGRAF) 3- 03-[address] 0.5 MG 00:00: 00:00 (0.5 mg Hospita capsule 00 :00 total) by l mouth 2 (two) times a day. tacrolimus 2021- No [id number] .5mg Q.5D Take 1 [facility] (PROGRAF) 3- 03-[address] 0.5 MG 00:00: 00:00 (0.5 mg Hospita capsule 00 :00 total) by l mouth 2 (two) times a day. tacrolimus 2021- No [id number] .5mg Q.5D Take 1 [facility] (PROGRAF) 3- [...] day for 30 days. mycophenola 2020- No [id number] 500mg Q.5D Take 1 Methodi te 3- 08-[address] (CELLCEPT) 00:00: 00:00 (500 mg Hos [facility] francisco 500 mg 00 :00 total) by l tablet mouth 2 (two) times a day. acetaminoph 2020- [place] [id number] 1{tbl} Q4H Take 1-2 Methodi en-codeine 3- 03-[address] (TYLENOL 00:00: 04:59 mouth Hospita WITH 00 :00 every 4 l CODEINE #3) (four) 300-30 mg hours as per tablet needed for moderate pain for up to 20 days .acute pain, chronic pain. ergocalcife 2021- No [id number] Q7D Take 1 M ethodi rol -13 08- capsule st (VITAMIN 00:00: 05:59 (50,000 Hospi ta D2) 50,000 00 :00 Units l unit total) by capsule mouth once a week. ergocalcife 2021- No [id number] Q7D Take 1 M ethodi rol 2-13 08- capsule st (VITAMIN 00:00: 00:00 (50,000 Hospi ta D2) 50,000 00 :00 Units l unit total) by capsule mouth once a week. ergocalcife 2021- No [id number] Q7D Take 1 M ethodi rol 2-13 08- capsule st (VITAMIN 00:00: 00:00 (50,000 Hospi ta D2) 50,000 00 :00 Units l unit total) by capsule mouth once a week. ergocalcife 2021- No [id number] Q7D Take 1 M ethodi rol 2-13 08-[address] (VITAMIN 00:00: 00:00 (50,000 Hospi [...] 0915, For Branch infusion 1 dose
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
losartan 2021-0 Yes 50mg QD Take 50 mg Met hodi (COZAAR) 50 1-[address] MG tablet 14:14: daily. Hospit a 41 l amLODIPine 2021-0 Yes 5mg QD Take 5 mg Me [...] 14:14: daily. Hospit a 41 l amLODIPine 2021-0 Yes 5mg QD Take 5 mg Me [...] 14:14: daily. Hospit a 41 l amLODIPine 2021-0 Yes 5mg QD Take 5 mg Me thodi (NORVASC) 5 1-[address] mg tablet 14:14: daily. Hospit a 41 l apremilast 2021-0 Yes 30mg Q.5D Take 30 mg M ethodi (Otezla) 30 1-[address] mg tablet 14:14: (two) Hospita 41 times a l day. losartan 2020-0 Yes 50mg QD Take 50 mg Met [facility] (COZAAR) 50 1-[address] MG tablet 14:14: daily. Hospit a 41 l amLODIPine 2020-0 Yes 5mg QD Take 5 mg Me thodi (NORVASC) 5 1-[address] mg tablet 14:14: daily. Hospit a 41 l apremilast 2020-0 Yes 30mg Q.5D Take 30 mg M ethodi (Otezla) 30 1-[address] mg tablet 14:14: (two) Hospita 41 times a l day. losartan 2020-0 Yes 50mg QD Take 50 mg Met [facility] (COZAAR) 50 1-[address] MG tablet 14:14: daily. Hospit a 41 l amLODIPine 2020-0 Yes 5mg QD Take 5 mg Me thodi (NORVASC) 5 1-[address] mg tablet 14:14: daily. Hospit a 41 l apremilast 2020-0 Yes 30mg Q.5D Take 30 mg M ethodi (Otezla) 30 1-[address] mg tablet 14:14: (two) Hospita 41 times a l day. traMADoL 2019-06 Yes [id number] 50mg Q4H Take 1 Method i (ULTRAM) 50 0-27 tablet (50 st mg tablet 00:00: mg total) Hos jose francisco 00 by mouth l every 4 (four) hours as needed for moderate pain for up to 30 days .chronic pain. traMADoL 2019-06- No [id number] 50mg Q4H Take 1 Metho di (ULTRAM) 50 0-27 03-03 tablet (50 s t mg tablet 00:00: 00:00 mg total) Ho spita 00 :00 by mouth l every 4 (four) hours as needed for moderate pain for up to 30 days .chronic pain. traMADoL 2019-06- No [id number] 50mg Q4H Take 1 Metho di (ULTRAM) 50 0-27 03-03 tablet (50 s t mg tablet 00:00: 00:00 mg total) Ho spita 00 :00 by mouth l every 4 (four) hours as needed for moderate pain for up to 30 days .chronic pain. traMADoL 2019-06 No [id number] 50mg Q4H Take 1 Metho di (ULTRAM) [...] Q.5D Take 1 Meth sebas oxide 5-15 -[address] (MAG-OX) 00:00: 00:00 (400 mg [...] tablet mouth every 8 (eight) hours. methocarbam 2021- No 750mg Q8H Take 1 Me thodi oL 09-25-[address] (Robaxin-75 00:00: 00:00 (750 mg Ho spita 0) 750 MG 00 :00 total) by l tablet mouth every 8 (eight) hours. methocarbam No 750mg Q8H Take 1 Me thodi oL 09-25 03-[address] (Robaxin-75 00:00: 00:00 (750 mg Ho spita 0) 750 MG 00 :00 total) by l tablet mouth every 8 (eight) hours. rosuvastati No 20mg QD Take 1 Met hodi n (CRESTOR) 08-15 tablet (20 s t 20 MG 00:00: 05:59 mg total) Hospit a tablet 00 :00 by mouth l every evening. ergocalcife No [id number] Q7D Take 1 M ethodi rol 08-[address] (VITAMIN 00:00: 00:00 (50,000 Hospi ta D2) 50,000 00 :00 Units l unit total) by capsule mouth once a week. aspirin 2019-0 Yes 81mg QD Take 1 [facility]i (ECOTRIN) 1-21 tablet (81 st 81 MG 00:00: mg total) Hospita enteric 00 by mouth l coated every tablet morning. multivitami [id number] Yes 1{tbl} QD Take 1 Me thodi n with 1-[address] minerals 00:00: mouth Hospita tablet 00 daily. l aspirin 0 Yes 81mg QD Take 1 [facility] (ECOTRIN) 1-21 tablet (81 st 81 MG 00:00: mg total) Hospita enteric 00 by mouth l coated every tablet morning. multivitami 2019-0 Yes 1{tbl} QD Take 1 Me thodi n with 1-[address] minerals 00:00: mouth Hospita tablet 00 daily. l aspirin 2019-0 Yes 81mg QD Take 1 [facility] (ECOTRIN) 1-21 tablet (81 st 81 MG 00:00: mg total) Hospita enteric 00 by mouth l coated every tablet morning. multivitami 2019-0 Yes 1{tbl} QD Take 1 Me thodi n with 1-[address] minerals 00:00: mouth Hospita tablet 00 daily. l aspirin 2019-0 Yes 81mg QD Take 1 [facility] (ECOTRIN) [...] 00:00: mouth Hospita tablet 00 daily. l bumetanide Yes 2mg QD Take [address] (BUMEX) 2 4-20 [facility] tablet 14:11: daily. Medica l 47 Center potassium Yes 20meq Q.5D Take [address] chloride SA 4-20 mEq by [facility] (K-DUR,KLOR 14:11: mouth 2 Med ical -CON) 20 47 (two) Center MEQ tablet times daily. ergocalcife Yes [id number] Q7D Take [facility] 4-20 50,000 [facility] (VITAMIN 14:11: Units by Medic al D2) 50,[address] unit a week. capsule levofloxaci Yes 750mg Q7D Take [address] n 4-20 mg by [facility] (LEVAQUIN) 14:11: mouth once M edical 750 MG 47 a week. Center tablet Immunizations Ordered Immunization Filled Date Status Comments Sour ce Name Immunization Name FLUCELVAX QUAD PF 2018-03-[address] 00:00:00 [facility] Pneumococcal 2018-03-26 Completed [facility] Polysaccharide 00:00:00 Hospital FLUCELVAX QUAD PF 2018-03-[address] 00:00:00 Hospital Pneumococcal 2018-03-26 Completed [facility] Polysaccharide 00:00:00 Hospital FLUCELVAX QUAD PF 2018-03-[address] 00:00:00 Hospital Pneumococcal 2018-03-26 Completed [facility] Polysaccharide 00:00:00 Hospital FLUCELVAX QUAD PF 2018-03-[address] 00:00:00 Hospital Pneumococcal 2018-03-26 Completed [facility] Polysaccharide 00:00:00 Hospital FLUCELVAX QUAD PF Unknown Completed [facility]s Vital Name Observation Time Observation Value Comments Source Body temperature 2021-06-07 37.17 Michelle [facility] 15:49:00 [facility] Respiratory rate 2021-06-07 18 /min University of 15:49:00 [facility] Oxygen saturation 2021-06-07 96 /min University of in Arterial blood 15:49:00 [facility] jose eduardo by Pulse oximetry Branch Systolic blood 2021-06-07 167 mm[Hg] University of pressure 15:49:00 [facility] Diastolic blood 2021-06-07 83 mm[Hg] University o f pressure 15:49:00 [facility] Heart rate 2021-06-07 82 /min University of 15:49:00 [facility] Body height 2021-06-07 165.1 cm University of 14:27:00 [facility] Body weight 2021-06-07 97.523 kg University of 14:27:00 [facility] BMI 2021-06-07 35.78 kg/m2 University of 14:27:00 [facility] Systolic blood 2020-08-03 179 mm[Hg] University of pressure 17:15:00 [facility] Diastolic blood 2020-08-03 84 mm[Hg] University o f pressure 17:15:00 [facility] Heart rate 2020-08-03 104 /min University of 17:15:00 [facility] Body temperature 2020-08-03 37 Michelle University 17:15:00 [facility] Respiratory rate 2020-08-03 18 /min University of 17:15:00 [facility] Oxygen saturation 2020-08-03 97 /min University of in Arterial blood 17:15:00 [facility] by Pulse oximetry [place] Body height 2020-08-03 172.7 cm University of 14:10:00 [facility] Body weight 2020-08-03 113.399 kg University of 14:10:00 [facility] BMI 2020-08-03 38.01 kg/m2 University of 14:10:00 [facility] Systolic blood 2022-07-09 156 mm[Hg] [facility] pressure 19:43:00 Hospital Diastolic blood 2022-07-09 81 mm[Hg] [facility] pressure 19:43:00 Hospital Heart rate 2022-07-09 83 /min [facility] 19:43:00 Hospital Body temperature 2022-07-09 36.67 Michelle [facility] 19:43:00 Hospital Respiratory rate 2022-07-09 17 /min [facility] 19:43:00 Hospital Body height 2022-07-09 172.7 cm [facility] 19:43:00 [facility] Body weight 2022-07-09 116.574 kg [facility] 19:43:00 Hospital BMI 2022-07-09 39.08 kg/m2 [facility] 19:43:00 Hospital Oxygen saturation 2022-07-09 94 /min [facility] in Arterial blood 19:43:00 Hospital by Pulse oximetry Systolic blood 2021-11-27 133 mm[Hg] [facility] pressure 18:51:00 Hospital Diastolic blood 2021-11-27 65 mm[Hg] [facility] pressure 18:51:00 Hospital Heart rate 2021-11-27 81 /min [facility] 18:51:00 Hospital Body temperature 2021-11-27 37.33 Michelle [facility] 18:51:00 Hospital Respiratory rate 2021-11-27 17 /min [facility] 18:51:00 Hospital Body height 2021-11-27 172.7 cm [facility] 18:51:00 Hospital Body weight 2021-11-27 110.451 kg [facility] 18:51:00 Hospital BMI 2021-11-27 37.02 kg/m2 [facility] 18:51:00 Hospital Oxygen saturation 2021-11-27 96 /min [facility] in Arterial blood 18:51:00 Hospital by Pulse oximetry Systolic blood 2021-04-03 161 mm[Hg] taken his bp [facility] pressure 20:10:00 medication this Hospital morning Diastolic blood 2021-04-03 77 mm[Hg] taken his bp [facility] pressure 20:10:00 medication this Hospital morning Heart rate 2021-04-03 73 /min [facility] 20:10:00 Hospital Body temperature 2021-04-03 36.22 Michelle [facility] 20:10:00 Hospital Respiratory rate 2021-04-03 16 /min [facility] 20:10:00 Hospital Body weight 2021-04-03 111.494 kg [facility] 20:10:00 Hospital BMI 2021-04-03 37.37 kg/m2 [facility] 20:10:00 Hospital Oxygen saturation 2021-04-03 97 /min [facility] in Arterial blood 20:10:00 Hospital by Pulse oximetry Body height 2020-08-22 172.7 cm [facility] 18:42:00 [facility] Procedures Procedure Date / Time Performing Clinician Source Performed MAGNESIUM LEVEL 2023-02-20 15:01:00 [facility] HEPATIC FUNCTION PANEL 2023-02-20 [facility] BASIC METABOLIC PANEL, 2023-02-20 15:[facility] PLASMA CBC WITH PLATELET AND 2023-02-20 15:01[facility] DIFFERENTIAL ALPHA FETOPROTEIN 2023-02-20 15:01:00 [facility] [id number] TACROLIMUS LEVEL, 2023-02-20 15:01:00 [facility] RANDOM MAGNESIUM LEVEL 2022-10-26 15:34:00 [facility] HEPATIC FUNCTION PANEL 2022-10-26 15:34:00 [facility] [facility] BASIC METABOLIC PANEL, 2022-10-26 15:34:00 [facility] PLASMA CBC WITH PLATELET AND 2022-10-26 15:34:00 [facility] DIFFERENTIAL ALPHA FETOPROTEIN 2022-10-26 15:34:00 [facility] [id number] TACROLIMUS LEVEL, 2022-10-26 15:34:00 [facility] RANDOM XR KNEE 4+ VW LEFT 2022-07-09 16:51:31 Aime Cortez [facility] MRI ABDOMEN W WO CONTRAST 2022-07-03 16:53:00 [facility] CT PELVIS W CONTRAST 2022-07-03 14:44:00 [facility] CT CHEST WO CONTRAST 2022-07-03 14:43:00 [facility] POC CREATININE 2022-07-03 13:56:00 [facility] ESTIMATED GFR 2022-07-03 13:56:00 [facility] CBC WITH PLATELET AND 2022-07-03 13:30:00 [facility] DIFFERENTIAL COMPREHENSIVE METABOLIC 2022-07-03 13:30:00 [facility] PANEL MAGNESIUM LEVEL 2022-07-03 13:30:00 [facility] HEMOGLOBIN A1C 2022-07-03 13:30:00 [facility] LIPID PANEL 2022-07-03 13:30:00 [facility] PARTIAL THROMBOPLASTIN 2022-07-03 13:30:00 [facility] TIME (PTT) PROTHROMBIN TIME WITH INR 2022-07-03 13:30:00 [facility] VITAMIN D 1,25 DIHYDROXY 2022-07-03 13:30:00 [facility] LEVEL, SERUM CYTOMEGALOVIRUS BY PCR 2022-07-03 13:30:00 [facility] VITAMIN D 25 HYDROXY LEVEL 2022-07-03 13:30:00 [facility] THYROID STIMULATING 2022-07-03 13:30:00 [facility] HORMONE URINE DRUGS OF ABUSE 2022-07-03 13:30:00 [facility] SCREEN GGT 2022-07-03 13:30:00 [facility] PROTEIN, URINE, RANDOM 2022-07-03 13:30:00 [facility] CREATININE LEVEL, URINE, 2022-07-03 13:30:00 [facility] RANDOM [id number] TACROLIMUS LEVEL, 2022-07-03 13:30:00 [facility] RANDOM HEPATOCELLULAR CARCINOMA 2022-07-03 13:30:00 [facility] MARKER PANEL PHOSPHATIDYLETHANOL, BLOOD 2022-07-03 13:30:00 [facility] ESTIMATED GFR 2022-07-03 13:30:00 [facility] DONOR SPECIFIC ANTIBODY 2022-07-03 13:30:00 Reynaldo Bah [facility] MAGNESIUM LEVEL 2022-04-22 13:32:00 [facility] 2022-04-22 13:32:00 [facility] BASIC METABOLIC PANEL, 2022-04-22 13:32:00 [facility] PLASMA PHOSPHATIDYLETHANOL, BLOOD 2022-04-22 13:32:00 [facility] WITH INR 2022-04-22 13:32:00 Taylor, [facility] CBC WITH PLATELET AND 2022-04-22 13:32:00 [facility] DIFFERENTIAL [id number] TACROLIMUS LEVEL, 2022-04-22 13:32:00 [facility] MAGNESIUM LEVEL 2021-11-25 13:46:00 [facility] 2021-11-25 13:46[facility]00 [facility] BASIC METABOLIC PANEL, 2021-11-25 13:46:00 [facility] PLASMA PHOSPHATIDYLETHANOL, BLOOD 2021-11-25 13:46:00 [facility] PROTHROMBIN TIME WITH INR 2021-11-25 13:46:00 [facility], [facility] CBC WITH PLATELET AND 2021-11-25 [facility]:46[facility] DIFFER[facility] FK506 TACROLIMUS LEVEL, 2021-11-25 13:46:00 [facility] CHEST WO CONTRAST 2021-08-21 17:14:05 [facility] MRI ABDOMEN W WO CONTRAST 2021-08-21 16:25:00 [facility] COVID-19 ANTI-SPIKE IGG 2021-08-21 15:05:00 [facility] ANTIBODY TITER HC COMPLETE BLD COUNT 2021-08-21 15:05:00 [facility] W/AUTO DIFF COMPREHENSIVE METABOLIC 2021-08-21 15:05:00 [facility] PANEL MAGNESIUM LEVEL 2021-08-21 15:05:00 [facility] HEMOGLOBIN A1C 2021-08-21 15:05:00 [facility] LIPID PANEL 2021-08-21 15:05:00 [facility] PARTIAL THROMBOPLASTIN 2021-08-21 15:05:00 [facility] TIME (PTT) PROTHROMBIN TIME WITH INR 2021-08-21 15:05:00 [facility] VITAMIN D 1,25 DIHYDROXY 2021-08-21 15:05:00 [facility] LEVEL, SERUM CYTOMEGALOVIRUS BY PCR 2021-08-21 15:05:00 [facility] VITAMIN D 25 HYDROXY LEVEL 2021-08-21 15:05:00 [facility] THYROID STIMULATING 2021-08-21 15:05:00 [facility] HORMONE URINE DRUGS OF ABUSE 2021-08-21 15:05:00 [facility] SCREEN GGT 2021-08-21 15:05:00 [facility] PROTEIN, URINE, RANDOM 2021-08-21 15:05:00 [facility] CREATININE LEVEL, URINE, 2021-08-21 15:05:00 [facility] RANDOM FK506 TACROLIMUS LEVEL, 2021-08-21 15:05:00 [facility] RANDOM HEPATOCELLULAR CARCINOMA 2021-08-21 15:05:00 [facility] MARKER PANEL PHOSPHATIDYLETHANOL, BLOOD 2021-08-21 15:05:00 Luis Miguel Vazquez ilmarybeth [facility] ESTIMATED GFR 2021-08-21 15:05:00 [facility] DONOR SPECIFIC ANTIBODY 2021-08-21 15:05:00 [facility]REFUSAL FOR 2021-06-07 06:01:00 Doctor Unassigned, [facility] DIAGNOSIS AND TREATMENT [facility] MAGNESIUM LEVEL 2021-04-01 13:21:00 [facility] 2021-04-01 13:21:00 [facility] PANEL PROTHROMBIN TIME WITH INR 2021-04-01 13:21:00 Taylor, [facility] CBC WITH PLATELET AND 2021-04-01 13:21:00 [facility] DIFFERENTIAL FK506 TACROLIMUS LEVEL, 2021-04-01 13:21:00 [facility] RANDOM MAGNESIUM LEVEL 2021-02-03 12:47:00 [facility] 2021-02-03 12:47:00 Taylor, [facility] PANEL PHOSPHATIDYLETHANOL, BLOOD 2021-02-03 12:47:00 [facility] PROTHROMBIN TIME WITH INR 2021-02-03 12:47:00 [facility] CBC WITH PLATELET AND 2021-02-03 12:47:00 [facility] DIFFERENTIAL FK506 TACROLIMUS LEVEL, 2021-02-03 12:47:00 [facility] RANDOM MAGNESIUM LEVEL 2020-12-25 12:41:00 Taylor, [facility] 2020-12-25 12:41:00 [facility] PANEL PHOSPHATIDYLETHANOL, BLOOD 2020-12-25 12:41:00 [facility] PROTHROMBIN TIME WITH INR 2020-12-25 12:41:00 [facility] CBC WITH PLATELET AND 2020-12-25 12:41:00 [facility] DIFFERENTIAL FK506 TACROLIMUS LEVEL, 2020-12-25 12:41:00 [facility] RANDOM MAGNESIUM LEVEL 2020-10-31 12:39:00 [facility] METABOLIC 2020-10-31 12:39:00 [facility] PANEL PHOSPHATIDYLETHANOL, BLOOD 2020-10-31 12:39:00 [facility] PROTHROMBIN TIME WITH INR 2020-10-31 12:39:00 [facility] CBC WITH PLATELET AND 2020-10-31 12:39:00 [facility] DIFFERENTIAL FK506 TACROLIMUS LEVEL, 2020-10-31 12:39:00 [facility] RANDOM MAGNESIUM LEVEL 2020-09-30 13:40:00 [facility] METABOLIC 2020-09-30 13:40:00 [facility] PANEL PHOSPHATIDYLETHANOL, BLOOD 2020-09-30 13:40:00 [facility] PROTHROMBIN TIME WITH INR 2020-09-30 13:40:00 [facility] CBC WITH PLATELET AND 2020-09-30 13:40:00 [facility] DIFFERENTIAL FK506 TACROLIMUS LEVEL, 2020-09-30 13:40:00 [facility] RANDOM MRI PELVIS WO CONTRAST 2020-09-06 17:10:00 [facility] LUMBAR SPINE WO 2020-09-06 16:23:00 [facility] CONTRAST REFERRAL- REQUEST/RESPONSE 2020-08-01 06:01:00 Doctor Unassigned , [facility] Plan of Care Planned Activity Planned Date Details Comments Source Future Scheduled 2023-03-28 Screening for [facility] Test 05:41:02 malignant neoplasm of colon (procedure) [code = 078837325] Future Scheduled 2023-03-28 Screening for [facility] Test 05:41:02 malignant neoplasm of colon (procedure) [code = 067215878] Future Scheduled 2023-03-28 Screening for [facility] Test 05:41:02 malignant neoplasm of colon (procedure) [code = 997873724] Future Scheduled 2023-03-28 COVID-19 VACCINE (#1) [facility] Test 05:41:02 [code = COVID-19 VACCINE (#1)] Future Scheduled 2023-03-28 SHINGLES VACCINES (1 [facility] Test 05:41:02 of 2) [code = SHINGLES VACCINES (1 of 2)] Future Scheduled 2023-03-28 Screening for [facility] Test 05:41:02 malignant neoplasm of colon (procedure) [code = 710680222] Future Scheduled 2023-03-28 Screening for [facility] Test 05:41:02 malignant neoplasm of colon (procedure) [code = 826014681] Future Scheduled 2023-03-28 Pneumococcal Vaccine: [facility] Test 05:41:02 Pediatrics (0 to 5 Years) and At-Risk Patients (6 to 64 Years) (2 - PCV) [code = Pneumococcal Vaccine: Pediatrics (0 to 5 Years) and At-Risk Patients (6 to 64 Years) (2 - PCV)] Future Scheduled 2023-03-28 HEPATITIS B VACCINES Met [facility] Test 05:41:02 (1 of 3 - Risk 3-dose series) [code = HEPATITIS B VACCINES (1 of 3 - Risk 3-dose series)] Future Scheduled 2023-03-28 INFLUENZA VACCINE (#1) [facility] Test 05:41:02 [code = INFLUENZA VACCINE (#1)] Future Scheduled 2022-03-25 HEPATITIS B VACCINES Met [facility] Test 18:55:02 (1 of 3 - 3-dose series) [code = HEPATITIS B VACCINES (1 of 3 - 3-dose series)] Future Scheduled 2022-03-25 COVID-19 VACCINE (#1) [facility] Test 18:55:02 [code = COVID-19 VACCINE (#1)] Future Scheduled 2022-03-25 SHINGLES VACCINES (1 Met [facility] Test 18:55:02 of 2) [code = SHINGLES VACCINES (1 of 2)] Future Scheduled 2022-03-25 COLONOSCOPY SCREENING [facility] Test 18:55:02 [code = COLONOSCOPY SCREENING] Future Scheduled 2022-03-25 Pneumococcal Vaccine: [facility] Test 18:55:02 Pediatrics (0 to 5 Years) and At-Risk Patients (6 to 64 Years) (2 - PCV) [code = Pneumococcal Vaccine: Pediatrics (0 to 5 Years) and At-Risk Patients (6 to 64 Years) (2 - PCV)] Future Scheduled 2022-03-25 INFLUENZA VACCINE [facility] Test 18:55:02 [code = INFLUENZA VACCINE] Future Scheduled 2022-03-20 HEPATITIS B VACCINES Met [facility] Test 03:06:19 (1 of 3 - 3-dose series) [code = HEPATITIS B VACCINES (1 of 3 - 3-dose series)] Future Scheduled 2022-03-20 COVID-19 VACCINE (#1) [facility] Test 03:06:19 [code = COVID-19 VACCINE (#1)] Future Scheduled 2022-03-20 SHINGLES VACCINES (1 Met [facility] Test 03:06:19 of 2) [code = SHINGLES VACCINES (1 of 2)] Future Scheduled 2022-03-20 COLONOSCOPY SCREENING [facility] Test 03:06:19 [code = COLONOSCOPY SCREENING] Future Scheduled 2022-03-20 Pneumococcal Vaccine: [facility] Test 03:06:19 Pediatrics (0 to 5 Years) and At-Risk Patients (6 to 64 Years) (2 - PCV) [code = Pneumococcal Vaccine: Pediatrics (0 to 5 Years) and At-Risk Patients (6 to 64 Years) (2 - PCV)] Future Scheduled 2022-03-20 INFLUENZA VACCINE [facility] Test 03:06:19 [code = INFLUENZA VACCINE] Future Scheduled 2022-02-18 HEPATITIS B VACCINES Met [facility] Test 12:28:16 (1 of 3 - 3-dose series) [code = HEPATITIS B VACCINES (1 of 3 - 3-dose series)] Future Scheduled 2022-02-18 COVID-19 VACCINE (#1) [facility] Test 12:28:16 [code = COVID-19 VACCINE (#1)] Future Scheduled 2022-02-18 SHINGLES VACCINES (1 Met [facility] Test 12:28:16 of 2) [code = SHINGLES VACCINES (1 of 2)] Future Scheduled 2022-02-18 COLONOSCOPY SCREENING [facility] Test 12:28:16 [code = COLONOSCOPY SCREENING] Future Scheduled 2022-02-18 Pneumococcal Vaccine: [facility] Test 12:28:16 Pediatrics (0 to 5 Years) and At-Risk Patients (6 to 64 Years) (2 - PCV) [code = Pneumococcal Vaccine: Pediatrics (0 to 5 Years) and At-Risk Patients (6 to 64 Years) (2 - PCV)] Future Scheduled 2022-02-18 INFLUENZA VACCINE Method [facility] Test 12:28:16 [code = INFLUENZA VACCINE] Future Scheduled 2021-07-22 COVID-19 VACCINE (1) [facility] Test 06:14:35 [code = COVID-19 VACCINE (1)] Future Scheduled 2021-07-22 COLONOSCOPY SCREENING [facility] Test 06:14:35 [code = COLONOSCOPY SCREENING] Future Scheduled 2021-07-22 SHINGLES VACCINES (#1) [facility] Test 06:14:35 [code = SHINGLES VACCINES (#1)] Future Scheduled 2021-07-22 INFLUENZA VACCINE Method [facility] Test 06:14:35 [code = INFLUENZA VACCINE] Encounters Start End Encounter Admission Attending Care Care Encounter Source Date/Time Date/Time Type Type Clinicians Facility Department ID 2023-02-26 2023-02-26 Orders Ping, 1.2.840.1 [id number] Methodi 00:00:00 00:00:00 Only Roland 21609.1.[address] 3.430.2.7 Hospit a .3.879516 l .8 2023-02-20 2023-02-20 Orders Shade, 1.2.840.1 [id number] Methodi 00:00:00 00:00:00 Only Reynaldo 79599.1.[address] 3.430.2.7 Hospit a .3.561200 l .8 2023-02-15 2023-02-15 Orders Ping, 1.2.840.1 [id number] Methodi 00:00:00 00:00:00 Only Claireth 24546.1.[address] 3.430.2.7 Hospit a .3.732154 l .8 2023-01-26 2023-01-26 Orders Clayton, 1.2.840.1 [id number] 2153 Methodi 00:00:00 00:00:00 Only Lauryn 69367.1.1 261 s t 3.430.2.7 Hospit a .3.760303 l .8 2023-01-26 2023-01-26 Orders Clayton, 1.2.840.1 [id number] 7288 Methodi 00:00:00 00:00:00 Only Lauryn 62843.1.1 127 s t 3.430.2.7 Hospit a .3.742273 l .8 2023-01-18 2023-01-18 Documentat Abdzoranrosita, 1.2.840.1 [id number] Methodi 00:00:00 00:00:[address] ion Tonie [address]797.1.[address] 3.430.2.7 Hospit a .3.286317 l .8 2023-01-15 2023-01-15 Oncology Laisha Torres 1.2.840.1 [id number] Methodi 00:00:00 00:00:00 Survivorsh 55728.1.1 132 s t ip 3.430.2.7 Hospit a .3.004493 l .8 2023-01-15 2023-01-15 Social Darwin, 1.2.840.1 [id number] 92254 Methodi 00:00:00 00:00:00 Work Ashely 78063.1.[address] 3.430.2.7 Hospit a .3.283623 l .8 2023-01-14 2023-01-14 Oncology Laisha Torres 1.2.840.1 [id number] Methodi 00:00:00 00:00:00 Survivorsh 78758.1.1 600 s t ip 3.430.2.7 Hospit a .3.451185 l .8 2023-01-14 2023-01-14 Orders Nurse, 1.2.840.1 [id number] Methodi 00:00:00 00:00:00 Only Mari 08648.1.[address] 3.430.2.7 Hospit a .3.348733 l .8 2023-01-14 2023-01-14 Telephone Sararonakgagan, 1.2.840.1 [id number] Methodi 00:00:00 00:00:[address] 3.430.2.7 Hospit a .3.921579 l .8 2022-10-26 2022-10-26 Orders Alex-Yusuf, 1.2.840.1 [id number] 21 [id number] Methodi 00:00:00 00:00:00 Only Reynaldo 79127.1.[address] 3.430.2.7 Hospit a .3.230778 l .8 2022-09-18 2022-09-18 Orders Clayton, 1.2.840.1 [id number] 1130 Methodi 00:00:00 00:00:00 Only Lauryn 59968.1.1 572 s t 3.430.2.7 Hospit a .3.829367 l .8 2022-08-28 2022-08-28 Telephone Gill, 1.2.840.1 [id number] Methodi 00:00:00 00:00:[address] 3.430.2.7 Hospit a .3.478449 l .8 2022-08-19 2022-08-19 Orders Forrest, 1.2.840.1 [id number] Methodi 00:00:00 00:00:00 Only Lauryn 82789.1.1 539 s t 3.430.2.7 Hospit a .3.849652 l .8 2022-08-18 2022-08-18 Office Tonja, 1.2.840.1 [id number] 21 [id number] Methodi 14:00:00 15:00:00 Visit Ton[address] 17689.1.[address] 3.430.2.7 Hospit a .3.958127 l .8 2022-08-18 2022-08-18 Outpatient TONJA [facility] [id number] [place] 00:00:00 00:00:00 TONIE [address] 2022-08-18 2022-08-18 Oncology Laisha Torres 1.2.840.1 [id number] 21 [id number] Methodi 00:00:00 00:00:00 [facility] 72525.1.1 422 s t ip 3.430.2.7 Hospit a .3.577734 l .8 2022-08-18 2022-08-18 Travel 1.2.840.1 1.2.241.638 [id number] Methodi 00:00:00 00:00:[address] 3.430.2.7 0.2.7.3.698 Ho spita .3.182260 084.8 l .8 2022-08-05 2022-08-05 Telephone Tonja, 1.2.840.1 [id number] Methodi 00:00:00 00:00:[address] 3.430.2.7 Hospit a .3.281639 l .8 2022-07-31 2022-07-31 Refill Ping, 1.2.840.1 [id number] Methodi 00:00:00 00:00:[address] 3.430.2.7 Hospit a .3.667886 l .8 2022-07-31 2022-07-31 Refill Ping, 1.2.840.1 [id number] Methodi 00:00:00 00:00:[address] 3.430.2.7 Hospit a .3.745891 l .8 2022-07-29 2022-07-29 Refill Ping, 1.2.840.1 [id number] 3231 Methodi 00:00:00 00:00:[address] 3.430.2.7 Hospit a .3.125941 l .8 2022-07-17 2022-07-17 Telephone Tonja, 1.2.840.1 [id number] Methodi 00:00:00 00:00:[address] 3.430.2.7 Hospit a .3.613394 l .8 2022-07-09 2022-07-09 Office Shade, 1.2.840.1 [id number] 21 [id number] Methodi 15:00:00 15:15:00 Visit Reynaldo 75042.1.[address] 3.430.2.7 Hospit a .3.645787 l .8 2022-07-09 2022-07-09 Office Diego, 1.2.840.1 [id number] Methodi 10:45:00 11:59:34 Visit Aime MeadowsNevin 03124.1.[address] 3.430.2.7 Hospit a .3.585584 l .8 2022-07-09 2022-07-09 Outpatient [facility] [id number] [place] 00:00:00 00:00:00 AIME [address] 2022-07-09 2022-07-09 Outpatient [facility] [id number] [id number] [place] 00:00:00 00:00:00 AIME [address] 2022-07-09 2022-07-09 Outpatient [facility] 938 [id number] [place] 00:00:00 00:00:[address] 2022-07-09 2022-07-09 Travel 1.2.840.1 1.2.001.268 [id number] [id number] Methodi 00:00:00 00:00:[address] 3.430.2.7 0.2.7.3.698 Ho spita .3.023433 084.8 l .8 2022-07-06 2022-07-06 Travel 1.2.840.1 1.2.231.099 0819 [id number] Methodi 00:00:00 00:00:[address] 3.430.2.7 0.2.7.3.698 Ho spita .3.527965 084.8 l .8 2022-07-03 2022-07-03 [facility], 1.2.840.1 [id number] 2 [id number] Methodi 09:00:23 23:59:00 Encounter Reynaldo 59413.1.[address] 3.430.2.7 Hospit a .3.857854 l .8 2022-07-03 2022-07-03 [facility], 1.2.840.1 [id number] 2 [id number] Methodi 07:43:41 08:59:00 Encounter Reynaldo 56890.1.[address] 3.430.2.7 Hospit a .3.197621 l .8 2022-07-03 2022-07-03 [facility], 1.2.840.1 [id number] 2 [id number] Methodi 07:43:13 08:59:00 Encounter Reynaldo 66780.1.[address] 3.430.2.7 Hospit a .3.313348 l .8 2022-07-03 2022-07-03 Outpatient TAYLOR, [facility] [id number] [place] 00:00:00 00:00:00 LUIS MIGUEL Salvador Method i 2022-07-03 2022-07-03 Outpatient [facility] [id number] [place] 00:00:00 00:00:00 REYNALDO 656 Method i 2022-07-03 2022-07-03 Outpatient [facility] [id number] [place] 00:00:00 00:00:00 REYNALDO 65Perry Method i 2022-07-03 2022-07-03 Outpatient [facility] [id number] [place] 00:00:00 00:00:00 REYNALDO 653 Method i 2022-07-03 2022-07-03 Travel 1.2.840.1 1.2.307.997 [id number] Methodi 00:00:00 00:00:[address] 3.430.2.7 0.2.7.3.698 Ho spita .3.522088 084.8 l .8 2022-06-29 2022-06-29 Documentat Arnol, 1.2.840.1 [id number] Methodi 00:00:00 00:00:00 ron Brown 22590.1.[address] 3.430.2.7 Hospit a .3.438176 l .8 2022-05-29 2022-05-29 Orders Ping, 1.2.840.1 [id number] Methodi 00:00:00 00:00:00 Only Roland 88617.1.[address] 3.430.2.7 Hospit a .3.499995 l .8 2022-05-11 2022-05-11 Refill Ping, 1.2.840.1 [id number] 2514 Methodi 00:00:00 00:00:[address] 3.430.2.7 Hospit a .3.285332 l .8 2022-04-22 2022-04-22 Orders Tayolr, 1.2.840.9 [id number] Methodi 00:00:00 00:00:00 Only Luis Miguel Perez 79643.1.1 807 s t 3.430.2.7 Hospit a .3.349174 l .8 2022-01-21 2022-01-21 Refill Taylor, 1.2.840.1 [id number] [id number] Methodi 00:00:00 00:00:00 Luis Miguel Perez 78208.1.1 740 s t 3.430.2.7 Hospit a .3.498423 l .8 2021-11-27 2021-11-27 Social Domingo, 1.2.840.1 [id number] 0378 Methodi 15:00:00 15:15:00 Work Natalia 05099.1.[address] 3.430.2.7 Hospit a .3.476547 l .8 2021-11-27 2021-11-27 Office Shade, 1.2.840.1 [id number] Methodi 14:00:00 14:15:00 Visit Reynaldo 45669.1.[address] 3.430.2.7 Hospit a .3.182370 l .8 2021-11-27 2021-11-27 Travel 1.2.840.1 1.2.753.337 6497 [id number] Methodi 00:00:00 00:00:[address] 3.430.2.7 0.2.7.3.698 Ho spita .3.926364 084.8 l .8 2021-11-25 2021-11-25 Orders Taylor, 1.2.840.9 [id number] [id number] Methodi 00:00:00 00:00:00 Only Luis Miguel Perez 78022.1.1 253 s t 3.430.2.7 Hospit a .3.424673 l .8 2021-10-16 2021-10-16 Refsampson Phillips, 1.2.840.1 [id number] 06574 88936 Methodi 00:00:00 00:00:00 Jamarcus Case [address]323.1.[address] 3.430.2.7 Hospit a .3.166194 l .8 2021-08-21 2021-08-21 [facility], 1.2.840.1 [id number] 2 [id number] Methodi 10:44:00 23:59:00 Encounter Reynaldo 62252.1.[address] 3.430.2.7 Hospit a .3.645634 l .8 2021-08-21 2021-08-21 [facility] [[email or web address]], 1.2.840.1 [id number] 21 [id number] Methodi 14:30:00 14:45:00 Visit Reynaldo 03043.1.[address] 3.430.2.7 Hospit a .3.020926 l .8 2021-08-21 2021-08-21 [facility], 1.2.840.1 [id number] 2 [id number] Methodi 09:28:24 10:43:00 Encounter Reynaldo 90890.1.[address] 3.430.2.7 Hospit a .3.914609 l .8 2021-08-21 2021-08-21 Outpatient SHADE, [facility] 058 [id number] [place] 00:00:00 00:00:[address] REYNA[address]O [address] 2021-08-21 2021-08-21 Travel 1.2.840.1 1.2.102.085 0861 527300 Methodi 00:00:00 00:00:[address] 3.430.2.7 0.2.7.3.698 Ho spita .3.602230 084.8 l .8 2021-07-28 2021-07-28 Refill Ping, 1.2.840.1 [id number] 261840 8945 Methodi 00:00:00 00:00:[address] 3.430.2.7 Hospit a .3.514327 l .8 2021-07-22 2021-07-22 Orders Ping, 1.2.840.1 [id number] 672361 8282 Methodi 00:00:00 00:00:00 Only Loideth 91264.1.[address] 3.430.2.7 Hospit a .3.632752 l .8 2021-06-23 2021-06-23 Orders Ping, 1.2.840.1 [id number] 090091 4480 Methodi 00:00:00 00:00:00 Only Loideth 87601.1.[address] 3.430.2.7 Hospit a .3.423517 l .8 2021-06-12 2021-06-12 Refill Jacqueline, 1.2.840.1 [id number] 95756 73157 Methodi 00:00:00 00:00:00 Jamarcus Case 10898.1.[address] 3.430.2.7 Hospit a .3.638880 l .8 2021-06-10 2021-06-10 Refsampson Phillips, 1.2.840.1 [id number] 92598 84345 Methodi 00:00:00 00:00:00 Jamarcus Case [address]252.1.[address] 3.430.2.7 Hospit a .3.863838 l .8 2021-06-07 2021-06-07 Nurse Therapy, Clc Covid Infusion [facility] 1.2.840.114 [id number] Univers 08:30:00 09:30:00 Visit Av Miguel [facility] 350.1.13.10 ity of [place] 4.2.7.2.686 [facility] [phone] Formerly named [facility] [address] OFFICE BUILDING 2021-06-07 2021-06-07 Outpatient R PRASANTH [facility] [id number] Univers 08:30:00 08:30:00 [facility] 2021-06-07 2021-06-07 Orders Doctor CALL 1.2.840.114 [id number] Univers 00:00:00 00:00:00 Only Unassigned, ADMIRE 350.1.13.10 ity of [place] [facility] 4.2.7.2.686 Aakash [phone] [place] [address] Branch 2021-05-26 2021-05-26 Orders Ping, 1.2.840.1 [id number] 6956 Methodi 00:00:00 00:00:00 Only Roland 89631.1.[address] 3.430.2.7 Hospit a .3.948251 l .8 2021-05-12 2021-05-12 Cha Phillips 1.2.840.1 [id number] 47834 81157 Methodi 00:00:00 00:00:[address] 3.430.2.7 Hospit a .3.159166 l .8 2021-04-24 2021-04-24 Mark Bryant 1.2.840.1 [id number] 2100 411873 Methodi 00:00:00 00:00:[address] 3.430.2.7 Hospit a .3.276126 l .8 2021-04-03 2021-04-03 Social Bryant 1.2.840.1 [id number] 008530 2343 Methodi 15:45:00 16:00:00 Work Kerline 61360.1.[address] 3.430.2.7 Hospit a .3.469741 l .8 2021-04-03 2021-04-03 Office Shade, 1.2.840.1 [id number] Methodi 14:45:00 15:00:00 Visit Reynaldo 57945.1.[address] 3.430.2.7 Hospit a .3.532072 l .8 2021-04-03 2021-04-03 Travel 1.2.840.1 1.2.585.932 5025 822146 Methodi 00:00:00 00:00:[address] 3.430.2.7 0.2.7.3.698 Ho spita .3.141405 084.8 l .8 2021-04-01 2021-04-01 Orders Taylor, 1.2.840.1 [id number] 565 [id number] Methodi 00:00:00 00:00:00 Only Luis Miguel Perez 64838.1.1 609 s t 3.430.2.7 Hospit a .3.366024 l .8 2021-03-18 2021-03-18 Refill Ping, 1.2.840.1 [id number] 613878 7295 Methodi 00:00:00 00:00:[address] 3.430.2.7 Hospit a .3.547085 l .8 2021-03-18 2021-03-18 Refill Ping, 1.2.840.1 [id number] 321664 6964 Methodi 00:00:00 00:00:[address] 3.430.2.7 Hospit a .3.802756 l .8 2021-02-20 2021-02-20 Telephone Manjit, 1.2.840.1 [id number] 21 [id number] Methodi 00:00:00 00:00:[address] 3.430.2.7 Hospit a .3.541217 l .8 2021-02-18 2021-02-18 Refill Ping, 1.2.840.1 626381424 104837 7421 Methodi 00:00:00 00:00:[address] 3.430.2.7 Hospit a .3.506334 l .8 2021-02-05 2021-02-05 Telephone Devora, 1.2.840.1 [id number] 21 [id number] Methodi 00:00:00 00:00:[address] 3.430.2.7 Hospit a .3.516190 l .8 2021-02-03 2021-02-03 Orders Taylor, 1.2.840.1 [id number] 797 [id number] Methodi 00:00:00 00:00:00 Only Luis Miguel Perez 35758.1.1 724 s t 3.430.2.7 Hospit a .3.292675 l .8 2020-12-28 2020-12-28 [facility], 1.2.840.1 [id number] Methodi 07:01:04 07:16:04 Telemedici Reynaldo 21574.1.1 354 s t ne 3.430.2.7 Hospit a .3.567626 l .8 2020-12-26 2020-12-26 Telephone Maritza, 1.2.840.1 [id number] 128 [id number] Methodi 00:00:00 00:00:[address] 3.430.2.7 Hospit a .3.960052 l .8 2020-12-25 2020-12-25 Orders Taylor, 1.2.840.8 [id number] 903 [id number] Methodi 00:00:00 00:00:00 Only Luis Miguel Chris 00918.1.1 053 s t 3.430.2.7 Hospit a .3.330973 l .8 2020-12-03 2020-12-03 Telemedici Jacqueline, 1.2.840.1 [id number] 21 [id number] Methodi 11:39:49 11:59:49 ne Jamarcus Case 73963.1.[address] 3.430.2.7 Hospit a .3.826942 l .8 2020-11-28 2020-11-28 Refill Taylor, 1.2.840.1 [id number] 2099 674526 Methodi 00:00:00 00:00:00 Luis Miguel Chris 53545.1.1 530 s t 3.430.2.7 Hospit a .3.935389 l .8 2020-11-27 2020-11-27 Refill Taylor, 1.2.840.1 [id number] 2099 987832 Methodi 00:00:00 00:00:00 Luis Miguel Chris 33447.1.1 121 s t 3.430.2.7 Hospit a .3.576211 l .8 2020-11-27 2020-11-27 Refill Buchert, 1.2.840.1 [id number] 70099 Methodi 00:00:00 00:00:00 Jamarcus Case 86349.1.[address] 3.430.2.7 Hospit a .3.814649 l .8 2020-11-01 2020-11-01 Telephone Pickering, 1.2.840.1 [id number] 2099 443703 Methodi 00:00:00 00:00:[address] 3.430.2.7 Hospit a .3.808690 l .8 2020-10-31 2020-10-31 Orders Taylor, 1.2.840.1 [id number] 2099 586453 Methodi 00:00:00 00:00:00 Only Luis Miguel Perez 91061.1.1 249 s t 3.430.2.7 Hospit a .3.655348 l .8 2020-10-09 2020-10-09 Documentat Pepper, 1.2.840.1 [id number] 03410309 Methodi 00:00:00 00:00:00 ion Jocelyn 34677.1.[address] 3.430.2.7 Hospit a .3.641915 l .8 2020-10-04 2020-10-04 Telephone Ping, 1.2.840.1 [id number] 2099 076418 Methodi 00:00:00 00:00:[address] 3.430.2.7 Hospit a .3.605363 l .8 2020-10-02 2020-10-02 Procedure Lavonne, 1.2.840.1 [id number] 894 0504231 Methodi 11:38:54 15:23:37 visit Shant 04866.1.[address] Sage 3.430.2.7 Hospit a .3.158342 l .8 2020-10-02 2020-10-02 Travel 1.2.840.1 1.2.324.879 5257 886501 Methodi 00:00:00 00:00:[address] 3.430.2.7 0.2.7.3.698 Ho spita .3.057542 084.8 l .8 2020-09-30 2020-09-30 Orders Taylor, 1.2.840.1 [id number] 2099 257282 Methodi 00:00:00 00:00:00 Only Luis Miguel Perez 65503.1.1 483 s t 3.430.2.7 Hospit a .3.976313 l .8 2020-09-24 2020-09-24 Travel 1.2.840.1 1.2.809.664 8679 180462 Methodi 00:00:00 00:00:[address] 3.430.2.7 0.2.7.3.698 Ho spita .3.439897 084.8 l .8 2020-09-16 2020-09-16 Office Lavonne, 1.2.840.1 [id number] 19411 68627 Methodi 09:38:18 11:07:39 Visit Shant 96602.1.[address] Sage 3.430.2.7 Hospit a .3.305911 l .8 2020-09-16 2020-09-16 Travel 1.2.840.1 1.2.333.516 2756 046896 Methodi 00:00:00 00:00:[address] 3.430.2.7 0.2.7.3.698 Ho spita .3.634667 084.8 l .8 2020-09-11 2020-09-11 Orders Muse, 1.2.840.1 [id number] 68825 23467 Methodi 00:00:00 00:00:00 Only Cleo 20366.1.[address] 3.430.2.7 Hospit a .3.933197 l .8 2020-09-11 2020-09-11 Orders Buchert, 1.2.840.1 [id number] 79318 03881 Methodi 00:00:00 00:00:00 Only Jamarcus Case 69220.1.[address] 3.430.2.7 Hospit a .3.122838 l .8 2020-09-10 2020-09-10 Office Jacqueline, 1.2.840.1 [id number] 04537 26344 Methodi 09:55:35 10:20:46 Visit Jamarcus Case 63733.1.[address] 3.430.2.7 Hospit a .3.414225 l .8 2020-09-10 2020-09-10 Orders Jacqueline, 1.2.840.1 [id number] 02170 28393 Methodi 00:00:00 00:00:00 Only Jamarcus RNevin 14063.1.[address] 3.430.2.7 Hospit a .3.135510 l .8 2020-09-10 2020-09-10 Travel 1.2.840.1 1.2.152.644 2998 522014 Methodi 00:00:00 00:00:[address] 3.430.2.7 0.2.7.3.698 Ho spita .3.601660 084.8 l .8 2020-09-06 2020-09-06 [facility] Cedric, 1.2.840.1 [id number] Methodi 10:23:29 23:59:00 Encounter Rene 92920.1.[address] Kermit 3.430.2.7 Hospit a .3.877261 l .8 2020-09-06 2020-09-06 [facility] Richy Almaguer [facility] 1.2.840 .1 [id number] Methodi 10:23:18 23:59:00 Encounter Rene Steele 57194.1.[address] 3.430.2.7 Hospit a .3.182698 l .8 2020-09-05 2020-09-05 Travel 1.2.840.1 1.2.376.998 4794 653457 Methodi 00:00:00 00:00:[address] 3.430.2.7 0.2.7.3.698 Ho spita .3.438626 084.8 l .8 2020-09-03 2020-09-03 Travel 1.2.840.1 1.2.433.826 8253 017086 Methodi 00:00:00 00:00:[address] 3.430.2.7 0.2.7.3.698 Ho spita .3.033380 084.8 l .8 2020-09-02 2020-09-02 Telephone [place], 1.2.840.1 [id number] Methodi 00:00:00 00:00:[address] 3.430.2.7 Hospit a .3.348054 l .8 2020-08-30 2020-08-30 Travel 1.2.840.1 1.2.060.153 4788 200203 Methodi 00:00:00 00:00:[address] 3.430.2.7 0.2.7.3.698 Ho spita .3.385312 084.8 l .8 2020-08-28 2020-08-28 Orders Muse, 1.2.840.1 [id number] 17717 23702 Methodi 00:00:00 00:00:00 Only Cleo 16671.1.[address] 3.430.2.7 Hospit a .3.073997 l .8 2020-08-28 2020-08-28 Orders Muse, 1.2.840.1 251999512 21000 32749 Methodi 00:00:00 00:00:00 Only Cleo 19529.1.[address] 3.430.2.7 Hospit a .3.567943 l .8 2020-08-22 2020-08-22 Office TaylorLuis Miguel Chris 1.2.840.1 104 897814 [id number] Methodi 12:30:13 12:45:13 Visit Reynaldo Bah 03994.1.[address] 3.430.2.7 Hospit a .3.003640 l .8 2020-08-22 2020-08-22 Office Jacqueline 1.2.840.1 [id number] 24455 78942 Methodi 10:47:44 11:02:44 Visit Jamarcus Case 16847.1.[address] 3.430.2.7 Hospit a .3.191340 l .8 2020-08-22 2020-08-22 Travel 1.2.840.1 1.2.688.649 0351 264172 Methodi 00:00:00 00:00:[address] 3.430.2.7 0.2.7.3.698 Ho spita .3.013046 084.8 l .8 2020-08-13 2020-08-13 Refill Ping, 1.2.840.1 [id number] 124409 8466 Methodi 00:00:00 00:00:[address] 3.430.2.7 Hospit a .3.803234 l .8 2020-08-12 2020-08-12 Travel 1.2.840.1 1.2.253.343 3696 938003 Methodi 00:00:00 00:00:[address] 3.430.2.7 0.2.7.3.698 Ho spita .3.383763 084.8 l .8 2020-08-09 2020-08-09 Refill Jacqueline, 1.2.840.1 [id number] 26308 33675 Methodi 00:00:00 00:00:00 Jamarcus Case 58822.1.[address] 3.430.2.7 Hospit a .3.959792 l .8 2020-08-08 2020-08-08 Refill Taylor, 1.2.840.1 [id number] 2099 773783 Methodi 00:00:00 00:00:00 Luis Miguel Perez 95636.1.1 712 s t 3.430.2.7 Hospit a .3.023779 l .8 2020-08-03 2020-08-03 Nurse Therapy, Adc Covid Infusion [facility] 1.2.840.114 [id number] Univers 07:56:47 08:26:47 Visit Richy Coyne 350.1.13.10 ity [facility] 4[place].2.[place] [facility] [phone] [place] [address] Branch 2020-08-03 2020-08-03 Outpatient R [facility] [id number] 711 Univers 08:00:00 08:00:00 ity of [facility] 2020-08-01 2020-08-01 Orders Ping, 1.2.840.1 [id number] 8639 Methodi 00:00:00 00:00:00 Only Roland 68532.1.[address] 3.430.2.7 Hospit a .3.304215 l .8 2020-08-01 2020-08-01 Telephone Raheel 1.2.840.1 [id number] 2099 403539 Methodi 00:00:00 00:00:[address] 3.430.2.7 Hospit a .3.036610 l .8 2020-08-01 2020-08-01 Orders Doctor ONEYDA 1.2.840.114 230301 74 Univers 00:00:00 00:00:00 Only Unassigned, SERENA 350.1.13.10 ity of [place] [facility] 4.2.7.2.686 Aakash as 378.2243233 [facility] [address] 2020-07-29 2020-07-29 Telephone Can, 1.2.840.1 [id number] 21 [id number] Methodi 00:00:00 00:00:[address] 3.430.2.7 Hospit a .3.865626 l .8 2020-07-03 2020-07-03 Outpatient TAYLOR, [facility] 34660 03093 [place] 00:00:00 00:00:00 LUIS MIGUEL [address] 2020-07-03 2020-07-03 Outpatient SAHARIA, [facility] [id number] 7730 [place] 00:00:00 00:00:00 JERMAIN [address] 2020-07-03 2020-07-03 Outpatient TAYLOR, [facility] 31379 29671 [place] 00:00:00 00:00:00 LUIS MIGUEL [address] 2020-07-03 2020-07-03 Outpatient TAYLOR, [facility] 80958 09658 [place] 00:00:00 00:00:00 LUIS MIGUEL [address] 2020-04-26 2020-04-26 Outpatient ABDELRAHIM, [facility] 559 [id number] [place] 00:00:00 00:00:00 TONIE [address] 2020-04-17 2020-04-17 Outpatient ABDELRAHIM, [facility] 903 [id number] [place] 00:00:00 00:00:00 TONIE 032 Method i 2020-04-09 2020-04-09 Outpatient ABDELRAHIM, [facility] 453 [id number] [place] 00:00:00 00:00:00 TONIE [address] 2020-04-09 2020-04-09 Outpatient ABDELRAHIM, [facility] 582 [id number] [place] 00:00:00 00:00:00 MAEN [address] 2020-04-09 2020-04-09 Outpatient ABDELRAHIM, [facility] 774 [id number] [place] 00:00:00 00:00:00 GAYEEN [address] 2020-04-04 2020-04-04 Outpatient ANKOMA-SEY, [facility] 808 [id number] [place] 00:00:00 00:00:00 REYNALDO [address] 2020-04-04 2020-04-04 Outpatient [facility] [id number] 797 [place] 00:00:00 00:00:[address] 2020-03-07 2020-03-07 Outpatient MALONE, [facility] 419 [id number] [place] 00:00:00 00:00:00 ALVARO [address] 2020-02-27 2020-02-27 Outpatient TAYLOR, [facility] 77815 77048 [place] 00:00:00 00:00:00 LUIS MIGUEL [address] 2020-02-27 2020-02-27 Outpatient SIFF, DORI [facility] 2100 [id number] [place] 00:00:00 00:00:[address] 2020-02-27 2020-02-27 Outpatient [facility] [id number] 370 [place] 00:00:00 00:00:[address] 2020-02-27 2020-02-27 Outpatient VALE, RICHY [facility] 2100 [id number] [place] 00:00:00 00:00:[address] 2020-02-27 2020-02-27 Outpatient SIFF, DORI [facility] 2100 [id number] [place] 00:00:00 00:00:[address] 2020-02-22 2020-02-22 Outpatient ANKOMA-SEY, [facility] 799 [id number] [place] 00:00:00 00:00:00 REYNALDO [address] 2020-02-22 2020-02-22 Outpatient EGWIM, [facility] [id number] 846 [place] 00:00:00 00:00:00 CHUYITA [address] 2020-02-22 2020-02-22 Outpatient MALONE, [facility] 444 [id number] [place] 00:00:00 00:00:00 ALVARO [address] 2020-02-22 2020-02-22 Outpatient SHANAOMA-YUSUF, [facility] 399 [id number] [place] 00:00:00 00:00:00 REYNALDO [address] 2019-12-29 2019-12-29 Outpatient [facility] [id number] [place] 00:00:00 00:00:[address] 2019-09-27 2019-09-27 Outpatient [facility] [id number] [place] 00:00:00 00:00:[address] 2019-09-26 2019-09-26 Outpatient [facility] [id number] 829 [place] 00:00:00 00:00:[address] 2019-09-26 2019-09-26 Outpatient [facility] [id number] 207 [place] 00:00:00 00:00:[address] 2019-09-26 2019-09-26 Outpatient [facility] [id number] 207 [place] 00:00:00 00:00:[address] 2019-09-26 2019-09-26 Outpatient VALE, RICHY [facility] 2099 [id number] [place] 00:00:00 00:00:[address] 2019-09-26 2019-09-26 Outpatient VALE, RICHY [facility] 2099 [id number] [place] 00:00:00 00:00:[address] 2019-08-15 2019-08-15 Outpatient TAYLOR, [facility] 56736 70154 [place] 00:00:00 00:00:00 RAFIK [address] 2019-08-15 2019-08-15 Outpatient TAYLOR, [facility] 14499 [id number] [place] 00:00:00 00:00:00 RAFIK [address] 2019-08-15 2019-08-15 Outpatient TAYLOR, [facility] [id number] 79634 [place] 00:00:00 00:00:00 RAFIK [address] 2019-08-15 2019-08-15 Outpatient TAYLOR, [facility] 59799 [id number] [place] 00:00:00 00:00:00 RAFIK [address] 2019-08-15 2019-08-15 Outpatient TAYLOR, [facility] [id number] [id number] [place] 00:00:00 00:00:00 RAFIK [address] 2019-08-15 2019-08-15 Outpatient TAYLOR, [facility] 16610 83037 [place] 00:00:00 00:00:00 RAFIK [address] 2019-08-15 2019-08-15 Outpatient TAYLOR, [facility] 95497 [id number] [place] 00:00:00 00:00:00 LUIS MIGUEL [address] Results Test Description Test Time Test Comments Results Result Comments Source Hepatic function panel 2023-02-23 16:23:00 Test Item Value Reference Range Interpretation Comme nts Protein (test code = 6.3 g/dL 6.1-8.1 2885-2) Albumin (test code = 3.6 g/dL 3.6-5.1 1750-7) Globulin, total (test code 2.7 See_Comment [Automated message] = 92291-5) The system [facility] [employer] generated this result transmitted ref erence range: 1.9 - 3. 7 g/dL (calc). The ref erence range was not u sed to interpret this result as normal/abnor mal. Albumin/globulin ratio 1.3 See_Comment [Aut omated message] (test code = 1759-0) The [facility] which generated this result transmitted ref erence range: 1.0 - 2. 5 (calc). The ref erence range was not u sed to interpret this result as normal/abnor mal. Total bilirubin (test code 0.4 mg/dL 0.2-1.2 = 1974-07) Bilirubin direct (test 0.1 mg/dL See_Comment [Aut omated message] code = 1967-) The system [facility] generated this result transmitted ref erence range: < OR = 0 .2. The reference range was not used to int erpret this result as normal/abnormal . Bilirubin, indirect (test 0.3 See_Comment [ Automated message] code = 1970-) The system [facility] generated this result transmitted ref erence range: 0.2 - 1. 2 mg/dL (calc). The ref erence range was not u sed to interpret this result as normal/abnor mal. Alkaline phosphatase (test 261 U/L 35-144 H code = 6768-6) AST (test code = 1920-8) 26 U/L 10-35 ALT (test code = 1742-6) 17 U/L 9-46 JOSEFA (test code = JOSEFA) FASTING:YES FASTING: YES RAC (test code = RAC) Performing Organization Information: Site ID: RGA Name: [facility] Address: [address] [place] [address] Director: Robert Scott Lab Interpretation (test Abnormal code = 24196-1) [facility] [id number] 16:23:00 Test Item Value Reference Range Interpretation Comments Magnesium (test code 1.6 mg/dL 1.5-2.5 = 24625-0) JOSEFA (test code = JOSEFA) FASTING:YES FASTING: YES RAC (test code = RAC) Performing Organization Information: Site ID: RGA Name: [facility] Address: [address] [place] [address] Director: Robert Scott [facility] with platelet and [id number] 16:23:00 Test Item Value Reference Range Interpretation Comments WBC (test code = 10.1 See_Comment [Automated 6690-2) message] The system which generated this result transmitted reference range : 3.8 - 10.8 Thousand/uL. Th e reference range was not used to interpret this result as normal/abnormal . RBC (test code = 4.45 See_Comment [Automated 769-8) message] The system which generated this result transmitted reference range : 4.20 - 5.80 Million/uL. The reference range was not used to interpret this result as normal/abnormal . HGB (test code = 14.8 g/dL 13.2-17.1 718-7) HCT (test code = 43.6 % 38.5-50.0 4544-3) MCV (test code = 98.0 fL 80.0-100.0 787-2) MCH (test code = 33.3 pg 27.0-33.0 H 785-6) MCHC (test code = 33.9 g/dL 32.0-36.0 786-4) RDW (test code = 12.1 % 11.0-15.0 788-0) Platelet count (test 265 See_Comment [Autom ated code = 777-3) message] The system which generated this result transmitted reference range : 140 - 400 Thousand/uL. Th e reference range was not used to interpret this result as normal/abnormal . MPV (test code = 9.4 fL 7.5-12.5 776-5) Neutrophils, 7868 See_Comment H [Automated absolute (test code message] The = 751-8) system which generated this result transmitted reference range : 1,500 - 7,800 cells/uL. The reference range was not used to interpret this result as normal/abnormal . Lymphocytes, 1020 See_Comment [Automated absolute (test code message] The = 731-0) system which generated this result transmitted reference range : 850 - 3,900 cells/uL. The reference range was not used to interpret this result as normal/abnormal . Monocytes, absolute 636 See_Comment [Automa rodrigo (test code = 742-7) message] The system which generated this result transmitted reference range : 200 - 950 cells/uL. The reference range was not used to interpret this result as normal/abnormal . Eosinophils, 525 See_Comment H [Automated absolute (test code message] The = 711-2) system which generated this result transmitted reference range : 15 - 500 cells/uL. The reference range was not used to interpret this result as normal/abnormal . Basophils, absolute 51 See_Comment [Automa rodrigo (test code = 704-7) message] The system which generated this result transmitted reference range : 0 - 200 cells/u L. The reference range was not used to interpr et this result as normal/abnormal . Neutrophils (test 77.9 % code = 770-8) Lymphocytes (test 10.1 % code = 736-9) Monocytes (test code 6.3 % = 5905-5) Eosinophils (test 5.2 % code = 713-8) Basophils + RC (test 0.5 % code = 706-2) JOSEFA (test code = FASTING:YES JOSEFA) FASTING: YES RAC (test code = Performing RAC) Organization Information: Site ID: RGA Name: [facility] Address: [address] [place] [address] Director: Robert Scott [facility] Interpretation Abnormal (test code = 84448-7) [id number] 16:23:00 Test Item Value Reference Interpretation Comments Range Alpha 2.4 ng/mL <=6.1 This test was performed fetoprotein using the Beckm an (test code = Coulterchemilum inescent 67822-7) method. Values obtained fromdifferent a ssay methods cannot be usedinterchange ably. AFP levels, regardl ess ofvalue, should not be interpreted as absoluteevidenc e of the presence or abs ence of disease. JOSEFA (test code FASTING:YES = JOSEFA) FASTING: YES RAC (test code Performing = RAC) Organization Information: Site ID: IG Name: [facility] Address: [address] [place] [address] Director: Dr. Fran Bolanos [id number] Tacrolimus level, [id number] 16:23:00 Test Item Value Reference Range Interpretation Comments Tacrolimus, 6.5 mcg/L No definitive highly therapeutic or toxic sensitive, ranges have LC/MS/MS beenestablished . (test code = [place] 17437-7) levels are influencedby ty pe of transplant, pat ient response, time post-transplant , co-administrati on of other drugs, an d drug formulation. Th e following troug h range is a suggested guideline: 5.0- 20.0 mcg/L. This macrina t was developed and i ts analytical perf ormance characteristics have been determined by [employer]. It has not been cl eared or approved by theA. This assay has been validated pursu ant to the CLIA regula tions and is used for clinical purpos es. JOSEFA (test FASTING:YES code = JOSEFA) FASTING: YES RAC (test Performing code = RAC) Organization Information: Site ID: [id number] Name: [facility] Address: [address] [place] [address] Director: Dr. Fran Bolanos [facility] METABOLIC PANEL, [id number] 16:23:00 Test Item Value Reference Range Interpretation Comments Glucose (test 99 mg/dL 65-99 Fasting refer ence code = 2345-7) interval BUN (test code = 13 mg/dL 7-25 3094-0) Creatinine (test 1.27 mg/dL 0.70-1.35 code = 2160-0) eGFR (test code = 65 See_Comment [Automate d 16065-2) message] The system which generated this result transmit rodrigo reference range : > OR = 60 mL/min/1.73m2. The reference range was not used to interpret this result as normal/abnormal . BUN/creatinine SEE NOTE: See_Comment Not Reported : BUN ratio (test code and Creatin ine are = 3097-3) within referenc e range. [Automat ed message] The system which generated this result transmit rodrigo reference range : 6 - 22 (calc). Th e reference range was not used to interpret this result as normal/abnormal . Sodium (test code 137 mmol/L 135-146 = 2951-2) Potassium (test 4.6 mmol/L 3.4-4.8 code = 2823-3) Chloride (test 102 mmol/L 98-110 code = 2075-0) CO2 (test code = 20 mmol/L 20-32 8-9) Calcium (test 9.2 mg/dL 8.6-10.3 code = 96102-9) JOSEFA (test code = FASTING:YES JOSEFA) FASTING: YES RAC (test code = Performing RAC) Organization Information: Site ID: RGA Name: [facility] Address: [address] [place] [id number] Director: [facility] [id number] 13:58:00 Test Item Value Reference Range Interpretation Comments POC creatinine (test 1.6 mg/dl 0.7-1.2 H Operato r Name: code = 51395-9) Mckeonparisa Quintana Device ID: [id number] Lab Interpretation (test Abnormal code = 63974-5) [facility] [id number] 13:58:00 Test Item Value Reference Range Interpretation Comments Estimated GFR (test 46 mL/min/1.73 m2 Ernie julio Units code = 97988-1) Interpretati onG1 >=90 Normal or highG 2 60-89 Mildly decrease dG3a 45-59 Mildly to moderately decr qvynxS7x 30-44 Moderatel y to severely decrea sedG4 15-29 Severely decreasedG5 <15 Kidney failureThe eGFR was calculated dee dee orosco the Chronic Kidney Disease Epidemiology Collaboration ( CKD-EPI) equation. Interpretation is based on recommendati ons of the [facility] [place] [facility] Disease Outcome s Quality Initiat agustín (NKF-KDOQI) pub lished in 2013. Lab Interpretation Abnormal (test code = 51980-2) [facility] [id number] 19:13:00 Test Item Value Reference Range Interpretation Comments Protein (test code = 7.3 g/dL 6.1-8.1 2885-2) Albumin, S (test 4.2 g/dL 3.6-5.1 code = 1751-7) Globulin, total See_Comment [Automated (test code = message] The 37500-0) system which generated this result transmitted reference [...] bilirubin 0.6 mg/dL 0.2-1.2 (test code = 1974-) Bilirubin direct 0.2 mg/dL See_Comment [Automated (test [...] code = 68 U/L 9-46 H 1742-6) JOESFA (test code = FASTING:YES JOSEFA) FASTING: YES RAC (test code = Performing RAC) Organization Information: Site ID: RGA Name: [facility] Lab Address: [address] [place] [address] Director: Fran Guajardo Lab Interpretation Abnormal (test code = 55703-9) [facility] [id number] 19:13:00 Test Item Value Reference Range Interpretation Comments Magnesium (test code 2.0 mg/dL 1.5-2.5 = 72984-9) JOSEFA (test code = JOSEFA) FASTING:YES FASTING: YES RAC (test code = RAC) Performing Organization Information: Site ID: RGA Name: [facility] Address: [address] [place] [address] Director: Fran Guajardo [facility] with platelet and [id number] 19:13:00 Test Item Value Reference Range Interpretation Comments WBC (test code = See_Comment [Automated 0072-2) message] The system which generated this result transmitted reference range : 3.8 - 10.8 Thousand/uL. Th e reference range was not used to interpret this result as normal/abnormal . RBC (test code = See_Comment [Automated 189-8) message] The system which generated this result [...] RAC) Organization Information: Site ID: RGA [facility]: [facility] Lab Address: [address] [place] [address] Director: Fran Guajardo Lab Interpretation Abnormal (test code = 98002-6) [facility] CenterProthrombin time with [id number] 19:13:00 Test Item Value Reference Range Interpretation Comments INR (test code = Reference R marlo 6301-6) 0.9-1.1Moderate -i ntensity Warfar in Therapy 2.0-3.0Higher-i nt ensity Warfarin Therapy 3.0-4.0 Prothrombin time See_Comment For additio nal (test code = information, 5902-2) please refer tohttp://educat io n.Availigentdiagnost Heliotrope Technologiescom/faq/FAQ10 4( This link is being provided for [...] RAC) Organization Information: Site ID: RGA Name: [facility] Address: [address] [place] [address] Director: Fran Guajardo [facility] CenterFK506 Tacrolimus level, [id number] 19:13:00 Test Item Value Reference Range Interpretation Comments Tacrolimus, mcg/L No definitive highly therapeutic or toxic sensitive, ranges have LC/MS/MS beenestablished . (test code = Optimal blood d rug 44562-7) levels are influencedby ty pe of transplant, pat ient response, time post-transplant , co-administrati on of other drugs, an d drug formulation. Th e following troug h range is a suggested guideline: 5.0- 20.0 mcg/L. This macrina t was developed and i ts analytical perf ormance characteristics have been determined by [employer] [facility]. It has not been cl eared or approved by theA. This assay has been validated pursu ant to the CLIA regula tions and is used for clinical purpos es. JOSEFA (test FASTING:YES code = JOSEFA) FASTING: YES RAC (test Performing code = RAC) Organization Information: Site ID: IG [facility]: [facility] Address: [address] [place] [address] Director: Dr. Fran Guajardo [facility] CenterBASI METABOLIC PANEL, [id number] 19:13:00 Test Item Value Reference Interpretation Comments [...] n. EGFR Non-Afr. See_Comment [Automated me ssage] Niuean (test code The syst em which = 5) generated this result transmit rodrigo reference range : > OR = 60 mL/min/1.73m2. The reference range was not used to interpret this result as normal/abnormal . EGFR See_Comment [Automated mes dhruv] Niuean (test code The syst em which = 7304) generated this result transmit rodrigo reference range [...] . Sodium (test code = 139 mmol/L 703-501 2887-2) Potassium (test 4.8 mmol/L 3.4-4.8 code = 2823-3) Chloride (test code 107 mmol/L 98-110 = 2075-0) CO2 (test code = 20 mmol/L 20-32 8-9) Calcium (test code 9.8 mg/dL 8.6-10.3 = 23699-2) JOESFA (test code = FASTING:YES JOSEFA) FASTING: YES RAC (test code = Performing RAC) Organization Information: Site ID: RGA [facility] Address: [address] [place] [address] Director: Fran Guajardo Lab Interpretation Abnormal (test code = 07722-0) [facility] CenterPhosphatidylethanol, [id number] 19:13:00 Test Item Value Reference Interpretation Comments Range Phosphatidylethan 600 ng/mL H Reporting Limit: 20 ng/mL ol, blood (test Synonym(s): Phosphatidyl code = 11915-0) Ethanol; PethPhosphatidy lethanol (PEth) is an ethanol-derived [...] and i ts performance characteristics determined by [facility]. It has not been cleared or approved by the US Food and Drug Administration. JOSEFA (test code = FASTING:YES JOSEFA) FASTING: YES RAC (test code = Performing RAC) Organization Information: Site ID: T7A Name: [facility] Labs Address: [address] [place] [address] KATHRYN Manjarrez [address] Director: Fran Brar PH.D, F-[facility] Lab Abnormal Interpretation (test code = 16354-1) [facility] CenterHep[facility] function [id number] 19:13:00 Test Item Value Reference Range Interpretation Comments Protein (test code = 7.3 g/dL 6.1-8.1 2885-2) Albumin, S (test 4.2 g/dL 3.6-5.1 code = 17506-27) Globulin, total See_Comment [Automated (test code = [...] RAC) Organization Information: Site ID: A Name: [facility] Address: [address] [place] [address] Director: Fran Guajardo Lab Interpretation Abnormal (test code = 45942-4) [facility] [id number] 19:13:00 Test Item Value Reference Range Interpretation Comments Magnesium (test code 2.0 mg/dL 1.5-2.5 = 89298-0) JOSEFA (test code = JOSEFA) FASTING:YES FASTING: YES RAC (test code = RAC) Performing Organization Information: Site ID: [facility] Name: [facility] Address: [address] [place] [address] Director: Fran Guajardo [facility] with platelet and [id number] 19:13:00 Test Item Value Reference Range Interpretation Comments WBC (test code = See_Comment [Automated 6690-2) message] The system which generated this result transmitted reference range : 3.8 - 10.8 Thousand/uL. Th e reference range was not used to interpret this result as normal/abnormal . RBC (test code = See_Comment [Automated 159-8) message] The system which generated this result [...] RAC) Organization Information: Site ID: RGA Name: [facility] Lab Address: [address] [place] [address] Director: Fran Guajardo Lab Interpretation Abnormal (test code = 53034-4) [facility] [id number] 19:13:00 Test Item Value Reference Range Interpretation Comments INR (test code = Reference Abdiel sellers 6301-6) 0.9-1.1Moderate -i ntensity Warfar in Therapy 2.0-3.0Higher-i nt ensity Warfarin Therapy 3.0-4.0 Prothrombin time See_Comment For additio nal (test code = information, 5902-2) please refer tohttp://educat io n.Grid2Home[employer]/faq/FAQ10 4( This link is being provided for [...] RAC) Organization Information: Site ID: RGA Name: [facility] Address: [address] [place] [address] Director: Fran Guajardo [facility] FmfzashmHI760 Tacrolimus level, [id number] 19:13:00 Test Item Value Reference Range Interpretation Comments Tacrolimus, mcg/L No definitive highly therapeutic or toxic sensitive, ranges have LC/MS/MS beenestablished . (test code = Optimal blood d rug 47489-6) levels are influencedby ty pe of transplant, pat ient response, time post-transplant , co-administrati on of other drugs, an d drug formulation. Th e following troug h range is a suggested guideline: 5.0- 20.0 mcg/L. This macrina t was developed and i ts analytical perf ormance characteristics have been determined by [employer] [facility]. It has not been cl eared or approved by theA. This assay has been validated pursu ant to the CLIA regula tions and is used for clinical purpos es. JOSEFA (test FASTING:YES code = JOSEFA) FASTING: YES RAC (test Performing code = RAC) Organization Information: Site ID: IG Name: [facility] Address: [address] [place] [address] Director: Dr. Fran Guajardo [facility] METABOLIC PANEL, [id number] 19:13:00 Test Item Value Reference Interpretation Comments Range Glucose (test code 104 mg/dL 65-99 H Fasting reference = 2345-7) interval For so makenna without known diabetes, a glu cose valuebetween 10 0 and 125 mg/dL is consistent withprediabetes and should be confi rmed with afollow-up test. BUN (test code = 22 mg/dL 7-25 3094-0) Creatinine (test 1.28 mg/dL 0.7-1.33 For patient s >49 code = 2160-0) years of age, the reference limit for Creatinine is approximately 1 3% higher for peopleidentifie d as -Leonor n. EGFR Non-Afr. See_Comment [Automated me ssage] Niuean (test code The syst em which = 0223) generated this result transmit rodrigo reference range : > OR = 60 mL/min/1.73m2. The reference range was not used to interpret this result as normal/abnormal . EGFR See_Comment [Automated mes dhruv] Niuean (test code The syst em which = 8346) generated this result transmit rodrigo reference range [...] . Sodium (test code = 139 mmol/L 890-394 7109-2) Potassium (test 4.8 mmol/L 3.4-4.8 code = 2823-3) Chloride (test code 107 mmol/L 98-110 = 2075-0) CO2 (test code = 20 mmol/L 20-32 8-9) Calcium (test code 9.8 mg/dL 8.6-10.3 = 08611-4) JOSEFA (test code = FASTING:YES JOSEFA) FASTING: YES RAC (test code = Performing RAC) Organization Information: Site ID: RGA Name: [facility] Address: [address] [place] [address] Director: Fran Guajardo Lab Interpretation Abnormal (test code = 78955-9) [facility] CenterPhosphatidylethanol, [id number] 19:13:00 Test Item Value Reference Interpretation Comments Range Phosphatidylethan 600 ng/mL H Reporting Limit: 20 ng/mL ol, blood (test Synonym(s): Phosphatidyl code = 53181-8) Ethanol; PethPhosphatidy lethanol (PEth) is an ethanol-derived [...] and i ts performance characteristics determined by [facility]. It has not been cleared or approved by the US Food and Drug Administration. JOSEFA (test code = FASTING:YES JOSEFA) FASTING: YES RAC (test code = Performing RAC) Organization Information: Site ID: T7A Name: [facility] Labs Address: [address] [place] [address] KATHRYN Manjarrez [address] Director: Fran Brar PH.D, F-[facility] Lab Abnormal Interpretation (test code = 57479-1) [facility] CenterHepatic function [id number] 19:13:00 Test Item Value Reference Range Interpretation Comments Protein (test code = 7.3 g/dL 6.1-8.1 2885-2) Albumin, S (test 4.2 g/dL 3.6-5.1 code = 1751-7) Globulin, total See_Comment [Automated (test code = message] The 61561-5) system which generated this result transmitted reference range : 1.9 - 3.7 g/dL (calc). The reference range was not used to interpret this result as normal/abnormal . Albumin/globulin See_Comment [Automated ratio (test code = message] The 5419-0) system which generated this result transmitted reference range : 1.0 - 2.5 (calc ). The reference range was not used to interpr et this result as normal/abnormal . Total bilirubin 0.6 mg/dL 0.2-1.2 (test code = 1974-) Bilirubin direct 0.2 mg/dL See_Comment [Automated (test [...] (test code = 68 U/L 9-46 H 174-6) JOSEFA (test code = FASTING:YES JOSEFA) FASTING: YES RAC (test code = Performing RAC) Organization Information: Site ID: RGA [facility]: [facility] Address: [address] [place] [address] Director: Fran Guajardo Lab Interpretation Abnormal (test code = 99360-0) [facility] [id number] 19:13:00 Test Item Value Reference Range Interpretation Comments Magnesium (test code 2.0 mg/dL 1.5-2.5 = 05498-6) JOSEFA (test code = JOSEFA) FASTING:YES FASTING: YES RAC (test code = RAC) Performing Organization Information: Site ID: RGA Name: [facility] Address: [address] [place] [address] Director: Fran Guajardo [facility] with platelet and gigwfvzfuaah7441-17-62 19:13:00 Test Item Value Reference Range Interpretation Comments WBC (test code = See_Comment [Automated 7611-2) message] The system which generated this result transmitted reference range : 3.8 - 10.8 Thousand/uL. Th e reference range was not used to interpret this result as normal/abnormal . RBC (test code = See_Comment [Automated 179-8) message] The system which generated this result [...] RAC) Organization Information: Site ID: EDUAR Name: [facility] Lab Address: [address] [place] [address] Director: Fran Guajardo Lab Interpretation Abnormal (test code = 29172-4) [facility] CenterProthrombin time with [id number] 19:13:00 Test Item Value Reference Range Interpretation Comments INR (test code = Reference R marlo 6301-6) 0.9-1.1Moderate -i ntensity Warfar in Therapy 2.0-3.0Higher-i nt ensity Warfarin Therapy 3.0-4.0 Prothrombin time See_Comment For additio nal (test code = information, 5902-2) please refer tohttp://educat io n.MSDSonline.com/faq/FAQ10 4( This link is being provided for [...] RAC) Organization Information: Site ID: EDUAR Name: [facility] Address: [address] [place] [address] Director: Fran Guajardo [facility] CenterFK506 Tacrolimus level, [id number] 19:13:00 Test Item Value Reference Range Interpretation Comments Tacrolimus, mcg/L No definitive highly therapeutic or toxic sensitive, ranges have LC/MS/MS beenestablished . (test code = Optimal blood d rug 48978-3) levels are influencedby ty pe of transplant, pat ient response, time post-transplant , co-administrati on of other drugs, an d drug formulation. Th e following troug h range is a suggested guideline: 5.0- 20.0 mcg/L. This macrina t was developed and i ts analytical perf ormance characteristics have been determined by [employer] [facility]. It has not been cl eared or approved by theA. This assay has been validated pursu ant to the CLIA regula tions and is used for clinical purpos es. JOSEFA (test FASTING:YES code = JOSEFA) FASTING: YES RAC (test Performing code = RAC) Organization Information: Site ID: IG Name: [facility] Address: [address] [place], [place] [address] [address] Director: Dr. Fran Guajardo [facility] METABOLIC PANEL, [id number] 19:13:00 Test Item Value Reference Interpretation Comments Range Glucose (test code 104 mg/dL 65-99 H Fasting reference = 2345-7) interval For so meone without known diabetes, a glu cose valuebetween 10 0 and 125 mg/dL is consistent withprediabetes and should be confi rmed with afollow-up test. BUN (test code = 22 mg/dL 7 3094-0) Creatinine (test 1.28 mg/dL 0.7-1.33 For patient s >49 code = 2160-0) years of age, the reference limit for Creatinine is approximately 1 3% higher for peopleidentifie d as -Leonor n. EGFR Non-Afr. See_Comment [Automated me ssage] Niuean (test code The syst em which = 2235) generated this result transmit rodrigo reference range : > OR = 60 mL/min/1.73m2. The reference range was not used to interpret this result as normal/abnormal . EGFR See_Comment [Automated mes dhruv] Niuean (test code The syst em which = 7094) generated this result transmit rodrigo reference range [...] . Sodium (test code = 139 mmol/L 526-645 5705-2) Potassium (test 4.8 mmol/L 3.4-4.8 code = 2823-3) Chloride (test code 107 mmol/L 98-110 = 2075-0) CO2 (test code = 20 mmol/L 20-32 2027-9) Calcium (test code 9.8 mg/dL 8.6-10.3 = 65962-8) JOSEFA (test code = FASTING:YES JOSEFA) FASTING: YES RAC (test code = Performing RAC) Organization Information: Site ID: RGA Name: [facility] Address: [address] [place] [address] Director: Fran Guajardo Lab Interpretation Abnormal (test code = 07255-8) [facility] CenterPhosphatidylethanol, [id number] 19:13:00 Test Item Value Reference Interpretation Comments Range Phosphatidylethan 600 ng/mL H Reporting Limit: 20 ng/mL ol, blood (test Synonym(s): Phosphatidyl code = 64583-1) Ethanol; PethPhosphatidy lethanol (PEth) is an ethanol-derived [...] and i ts performance characteristics determined by [facility]. It has not been cleared or approved by the US Food and Drug Administration. JOSEFA (test code = FASTING:YES JOSEFA) FASTING: YES RAC (test code = Performing RAC) Organization Information: Site ID: T7A Name: [facility] Address: [address] [place] Rolle [address] Director: Fran Brar PH.D, F-ABFT Lab Abnormal Interpretation (test code = 74284-3) [facility] CenterComprehensive metabolic [id number] 01:17:00 Test Item Value Reference Interpretation Comments [...] EGFR Non-Afr. See_Comment L [Automated me ssage] Niuean (test code The syst em which = 9205) generated this result transmit rodrigo reference range : > OR = 60 mL/min/1.73m2. The reference range was not used to interpret this result as normal/abnormal . EGFR See_Comment L [Automated mes dhruv] Niuean (test code The syst em which = 0154) generated this result transmit rodrigo reference range : > OR = 60 mL/min/1.73m2. The reference range was not used to interpret this result as normal/abnormal . BUN/creatinine See_Comment [Automated m essage] ratio (test code = The Filaoe m which 3097-3) generated this result transmit rodrigo reference range : 6 - 22 (calc). The reference range was not used to interpret this result as normal/abnormal . Sodium (test code = 138 mmol/L 247-084 0204-2) Potassium (test 4.9 mmol/L 3.5-5.3 code = 2823-3) Chloride (test code 106 mmol/L 98-110 = 2075-0) CO2 (test code = 26 mmol/L 20-32 8-9) Calcium (test code 8.8 mg/dL 8.6-10.3 = 53770-9) Protein (test code 6.4 g/dL 6.1-8.1 = 2885-2) Albumin, S (test 3.8 g/dL 3.6-5.1 code = 1751-7) Globulin, total See_Comment [Automated message] (test code = The system Pass[employer] Br[employer]ic h 67164-4) generated this result transmit rodrigo reference range [...] bilirubin 0.6 mg/dL 0.2-1.2 (test code = 1974-2) Alkaline 134 U/L 35-144 phosphatase (test code = 6768-6) AST (test code = 31 U/L 10-35 1920-8) ALT (test code = 31 U/L 9-46 1742-6) JOSEFA (test code = FASTING:YES JOSEFA) FASTING: YES RAC (test code = Performing RAC) Organization Information: Site ID: RGA [facility] Address: [address] [place] [address] Director: Fran Guajardo Lab Interpretation Abnormal (test code = 67390-8) [facility]2021-10-14 01:17:00 Test Item Value Reference Range Interpretation Comments Magnesium (test code 2.1 mg/dL 1.5-2.5 = 78825-7) JOSEFA (test code = JOSEFA) FASTING:YES FASTING: YES RAC (test code = RAC) Performing Organization Information: Site ID: RGA Name: [facility] Address: [address] [place] [address] Director: Fran Guajardo [facility] with platelet and gxelrzqwfxwi6371-05-86 01:17:00 Test Item Value Reference Range Interpretation Comments WBC (test code = See_Comment [Automated 8243-2) message] The system which generated this result transmitted reference range : 3.8 - 10.8 Thousand/uL. Th e reference range was not used to interpret this result as normal/abnormal . RBC (test code = See_Comment [Automated 473-8) message] The system which generated this result [...] RAC) Organization Information: Site ID: A Name: [facility] Address: [address] [place] [address] Director: Fran Guajardo Lab Interpretation Abnormal (test code = 44240-3) [facility] CenterProthrombin time with [id number] 01:17:00 Test Item Value Reference Range Interpretation Comments INR (test code = Reference R marlo 6301-6) 0.9-1.1Moderate -i ntensity Warfar in Therapy 2.0-3.0Higher-i nt ensity Warfarin Therapy 3.0-4.0 Prothrombin time See_Comment For additio nal (test code = information, 5902-2) please refer tohttp://educat io n.MSDSonline.com/faq/FAQ10 4( This link is being provided for informational/e du cational purpos es only.) [Automat ed message] The system which generated this result transmitted reference range : 9.0 - 11.5 sec. The reference range was not used to interpr et this result as normal/abnormal . JOSEFA (test code = FASTING:YES JOSEFA) FASTING: YES RAC (test code = Performing RAC) Organization Information: Site ID: [facility] Name: [facility] Address: [address] [place] [address] Director: Fran Guajardo [facility]FK[facility] Tacrolimus level, [id number] 01:17:00 Test Item Value Reference Range Interpretation Comments Tacrolimus, mcg/L No definitive highly therapeutic or toxic sensitive, ranges have LC/MS/MS beenestablished . (test code = Optimal blood d rug 72692-9) levels are influencedby ty pe of transplant, pat ient response, time post-transplant , co-administrati on of other drugs, an d drug formulation. Th e following troug h range is a suggested guideline: 5.0- 20.0 mcg/L. This macrina t was developed and i ts analytical perf ormance characteristics have been determined by [employer]. It has not been cl eared or approved by theA. This assay has been validated pursu ant to the CLIA regula tions and is used for clinical purpos es. JOSEFA (test FASTING:YES code = JOSEFA) FASTING: YES RAC (test Performing code = RAC) Organization Information: Site ID: IG Name: [facility] [place] Address: [address] [facility] [place] [address] Director: Dr. Fran Guajardo [facility] CenterPhosphatidylethanol, [id number] 22:55:00 Test Item Value Reference Interpretation Comments Range Phosphatidylethan 970 ng/mL H Reporting Limit: 20 ng/mL ol, blood (test Synonym(s): Phosphatidyl code = 39520-7) Ethanol; PET H; PethPhosphatidy lethanol (PEth) is [...] and i ts performance characteristics determined by [facility]. It has not been cleared or approved by the US Food and Drug Administration. JOSEFA (test code = FASTING:YES JOSEFA) FASTING: YES RAC (test code = Performing RAC) Organization Information: Site ID: T7A Name: [facility] Address: [address] [place] [address] KATHRYN Manjarrez [address] Director: Fran Brar PH.D, F-ABFT Lab Abnormal Interpretation (test code = 56695-0) [facility]
--- NOTE | 2023-03-28 21:39 | RAD REPORT ---
EXAM DESCRIPTION: RAD - Foot Right 3 View - 03/28/2023 9:33 pm CLINICAL HISTORY: PAIN COMPARISON: No comparisons FINDINGS/IMPRESSION: No acute fracture. No malalignment. Plantar aspect calcaneal spur. Mild hallux valgus deformity at the first MTP.
--- NOTE | 2023-03-28 21:40 | RAD REPORT ---
EXAM DESCRIPTION: RAD - Ankle Right 3 View - 03/28/2023 9:33 pm CLINICAL HISTORY: PAIN COMPARISON: Ankle Right 3 View dated 11/01/2015 FINDINGS/IMPRESSION: No acute fracture. No malalignment. Plantar aspect calcaneal spur.
--- NOTE | 2023-03-28 22:05 | EDPHYS ---
Physician Documentation [facility] Name: Javier Saravia Age: 62 yrs Sex: Male : 1960 Arrival Date: 03/28/2023 Time: 20:19 Bed 20 Private MD: ED Physician Karsten Calvert HPI: 03/28 21:59 This 62 yrs old Male presents to ER via Wheelchair with complaints of Fall esha Injury, Ankle Injury. 21:59 Details of fall: The patient fell from an upright position, while walking. Onset: The esha symptoms/episode began/occurred just prior to arrival. Associated injuries: The patient sustained right ankle, decreased range of motion, painful injury. Severity of symptoms: At their worst the symptoms were mild, moderate, in the emergency department the symptoms are unchanged. The patient has not experienced similar symptoms in the past. Historical: - Allergies: 20:34 No Known Allergies; lg3 - PMHx: 20:34 Cirrhosis; Hypertension; psoriasis; lg3 - PSHx: 20:34 liver transplant; left leg (liver transplant); Cholecystectomy; lg3 - Immunization history:: Adult Immunizations up to date, Client reports receiving the 2nd dose of the Covid vaccine, Flu vaccine is not up to date. It has been more than one year since last vaccine. - Social history:: Smoking status: Patient denies any tobacco usage or history of. Patient/guardian denies using alcohol, street drugs. ROS: 22:00 Constitutional: Negative for fever, chills, and weight loss, Eyes: Negative for injury, esha pain, redness, and discharge, ENT: Negative for injury, pain, and discharge, Neck: Negative for injury, pain, and swelling, Cardiovascular: Negative for chest pain, palpitations, and edema, Respiratory: Negative for shortness of breath, cough, wheezing, and pleuritic chest pain, Abdomen/GI: Negative for abdominal pain, nausea, vomiting, diarrhea, and constipation, Back: Negative for injury and pain, : Negative for injury, bleeding, discharge, and swelling, Skin: Negative for injury, rash, and discoloration, Neuro: Negative for headache, weakness, numbness, tingling, and seizure, Psych: Negative for depression, anxiety, suicide ideation, homicidal ideation, and hallucinations, Allergy/Immunology: Negative for hives, rash, and allergies, Endocrine: Negative for neck swelling, polydipsia, polyuria, polyphagia, and marked weight changes, Hematologic/Lymphatic: Negative for swollen nodes, abnormal bleeding, and unusual bruising, 22:00 MS/extremity: Positive for injury or acute deformity, decreased range of motion, of the right ankle, Exam: 22:00 Constitutional: This is a well developed, well nourished patient who is awake, alert, esha and in no acute distress. Head/Face: Normocephalic, atraumatic. Eyes: Pupils equal round and reactive to light, extra-ocular motions intact. Lids and lashes normal. Conjunctiva and sclera are non-icteric and not injected. Cornea within normal limits. Periorbital areas with no swelling, redness, or edema. ENT: Nares patent. No nasal discharge, no septal abnormalities noted. Tympanic membranes are normal and external auditory canals are clear. Oropharynx with no redness, swelling, or masses, exudates, or evidence of obstruction, uvula midline. Mucous membranes moist. Neck: Trachea midline, no thyromegaly or masses palpated, and no cervical lymphadenopathy. Supple, full range of motion without nuchal rigidity, or vertebral point tenderness. No Meningismus. Chest/axilla: Normal chest wall appearance and motion. Nontender with no deformity. No lesions are appreciated. Cardiovascular: Regular rate and rhythm with a normal S1 and S2. No gallops, murmurs, or rubs. Normal PMI, no JVD. No pulse deficits. Respiratory: Lungs have equal breath sounds bilaterally, clear to auscultation and percussion. No rales, rhonchi or wheezes noted. No increased work of breathing, no retractions or nasal flaring. Abdomen/GI: Soft, non-tender, with normal bowel sounds. No distension or tympany. No guarding or rebound. No evidence of tenderness throughout. Back: No spinal tenderness. No costovertebral tenderness. Full range of motion. Male : Normal genitalia with no discharge or lesions. Skin: Warm, dry with normal turgor. Normal color with no rashes, no lesions, and no evidence of cellulitis. Neuro: Awake and alert, GCS 15, oriented to person, place, time, and situation. Cranial nerves II-XII grossly intact. Motor strength 5/5 in all extremities. Sensory grossly intact. Cerebellar exam normal. Normal gait. Psych: Awake, alert, with orientation to person, place and time. Behavior, mood, and affect are within normal limits. 22:00 Musculoskeletal/extremity: ROM: limited active range of motion due to pain, limited passive range of motion due to pain, in the right ankle, Circulation is intact in all extremities. Sensation intact. Compartment Syndrome exam of affected extremity: is normal. Weight bearing: can bear weight with assistance only, uses crutch, DVT Exam: negative Homans' sign noted on exam, no appreciated bluish discoloration, no erythema, no increased warmth, pain, swelling, tenderness, Vital Signs: 20:32 BP 117 / 84; Pulse 77; Resp 19 S; Temp 98.1(O); Pulse Ox 96% on R/A; Weight 115.67 kg lg3 (R); Height 5 ft. 8 in. (R); 22:21 BP 137 / 69; Pulse 79; Resp 18 S; Pulse Ox 96% on R/A; lg3 20:32 Body Mass Index 38.77 (115.67 kg, 172.72 cm) lg3 MDM: 20:27 Patient medically screened. [facility] 22:02 Differential diagnosis: fracture, sprain, arthritis, gout. Differential diagnosis: esha fracture, sprain, strain. Data reviewed: vital signs, nurses notes, radiologic studies, plain films. Consideration of Admission/Observation Escalation of care including admission/observation considered. I considered the following discharge prescriptions or medication management in the emergency department Medications were administered in the Emergency Department. See MAR. Independent interpretation of the following test(s) in the Emergency Department X-Ray: My interpretation is no fx. Test considered but Not performed: Labs: no labs. Historians other than the Patient: Spouse/Significant Other: . Care significantly affected by the following chronic conditions: Hypertension, Liver Disease, liver transplant. 03/28 20:51 Order name: Ankle Right 3 View XRAY [facility] 03/28 20:51 Order name: Foot Right 3 View XRAY [facility] 03/28 21:58 Order name: Walking boot; Complete Time: 22:15 esha 03/28 21:58 Order name: Ice pack; Complete Time: 22:04 esha Administered Medications: 22:04 Drug: [place] PO 10 mg-325 mg 1 tabs PO once Route: PO; lg3 22:22 Follow up: Response: No adverse reaction; Marked relief of symptoms; Pain is decreased lg3 Disposition Summary: 03/28/23 22:04 Discharge Ordered Notes: Location: Home [facility] Problem: new esha Symptoms: have improved esha Condition: Stable esha Diagnosis - Sprain of tibiofibular ligament of right ankle esha - Sprain of calcaneofibular ligament of right ankle esha - Sprain of ankle esha Followup: esha - With: Private Physician - When: 2 - 3 days - Reason: Recheck today's complaints, Continuance of care, Re-evaluation by your physician Followup: esha - With: Marko Coffman MD - When: 2 - 3 days - Reason: Recheck today's complaints, Re-evaluation by your physician Discharge Instructions: - Discharge Summary Sheet esha - Ankle Sprain esha - Ankle Sprain, [id number] esha - Ankle Pain [facility] Forms: - Medication Reconciliation Form [facility] - Thank You Letter esha - Antibiotic Education esha - Prescription Opioid Use esha - Patient Portal Instructions esha - Leadership Thank You Letter [facility] Prescriptions: - acetaminophen-codeine 300-30 mg Oral tablet - take 2 tablet ORAL route every 6 hours; 20 tablet; Refills: 0, Product esha Selection Permitted Signatures: Dispatcher [employer] Karsten Cordero MD MD cha Gibson, Lacie, RN RN lg3
--- NOTE | 2023-03-28 22:05 | ER ---
Nurse's Notes [facility] Name: Javier Saravia Age: 62 yrs Sex: Male : 1960 Arrival Date: 03/28/2023 Time: 20:19 Bed 20 Private MD: Diagnosis: Sprain of tibiofibular ligament of right ankle;Sprain of calcaneofibular ligament of right ankle;Sprain of ankle Presentation: 03/28 20:32 Chief complaint: Patient states: stepped off sidewalk and rolled my right ankle around lg3 1730. pain 8/10. swelling present. Coronavirus screen: At this time, unable to obtain information related to travel outside the [place] At this time, the client does not indicate any symptoms associated with coronavirus-19. Ebola Screen: No symptoms or risks identified at this time. Initial Sepsis Screen: Does the patient meet any 2 criteria? No. Patient's initial sepsis screen is negative. Does the patient have a suspected source of infection? No. Patient's initial sepsis screen is negative. Risk Assessment: Do you want to hurt yourself or someone else? Patient reports no desire to harm self or others. Onset of symptoms was March 28, 2023 at 17:30. 20:32 Method Of Arrival: Wheelchair lg3 20:32 Acuity: RD 4 lg3 Triage Assessment: 20:34 General: Appears in no apparent distress. uncomfortable, Behavior is calm, cooperative. lg3 Pain: Complains of pain in right ankle Pain does not radiate. Pain currently is 8 out of 10 on a pain scale. Noted to be resistant to movement. EENT: No deficits noted. No signs and/or symptoms were reported regarding the EENT system. Neuro: No deficits noted. Coleman Agitation-Sedation Scale (RASS): 0 - Alert and Calm Level of Consciousness is awake, alert, obeys commands, Oriented to person, place, time, situation. Cardiovascular: No deficits noted. Denies chest pain, shortness of breath, Capillary refill < 3 seconds Clubbing of nail beds is absent JVD is absent Patient's skin is warm and dry. Respiratory: No deficits noted. Airway is patent Respiratory effort is even, unlabored, Respiratory pattern is regular, symmetrical. GI: No deficits noted. No signs and/or symptoms were reported involving the gastrointestinal system. Abdomen is round non-distended, obese. : No deficits noted. No signs and/or symptoms were reported regarding the genitourinary system. Derm: No deficits noted. No signs and/or symptoms reported regarding the dermatologic system. Musculoskeletal: Circulation, motion, and sensation intact. Range of motion: intact in all extremities, Swelling present in right ankle Reports pain in right ankle. Historical: - Allergies: 20:34 No Known Allergies; lg3 - PMHx: 20:34 Cirrhosis; Hypertension; psoriasis; lg3 - PSHx: 20:34 liver transplant; left leg (liver transplant); Cholecystectomy; lg3 - Immunization history:: Adult Immunizations up to date, Client reports receiving the 2nd dose of the Covid vaccine, Flu vaccine is not up to date. It has been more than one year since last vaccine. - Social history:: Smoking status: Patient denies any tobacco usage or history of. Patient/guardian denies using alcohol, street drugs. Screenin:38 [facility] ED Fall Risk Assessment (Adult) History of falling in the last 3 months, lg3 including since admission Yes- single mechanical fall (1 pt) Confusion or Disorientation No (0 pts) Intoxicated or Sedated No (0 pts) Impaired Gait No (0 pts) Mobility Assist Device Used No (0 pt) Altered Elimination No (0 pt) Score/Fall Risk Level 0 - 2 = Low Risk Oriented to surroundings, Maintained a safe environment, Educated pt \T\ family on fall prevention, incl call for assistance when getting out of bed, Assessed \T\ reinforced patient's understanding of fall precautions. Abuse screen: Denies threats or abuse. Denies injuries from another. Nutritional screening: No deficits noted. Tuberculosis screening: No symptoms or risk factors identified. Assessment: 20:37 General: see triage assessment. lg3 21:47 Reassessment: Patient appears in no apparent distress at this time. No changes from lg3 previously documented assessment. Patient and/or family updated on plan of care and expected duration. Pain level reassessed. Patient is alert, oriented x 3, equal unlabored respirations, skin warm/dry/pink. Vital Signs: 20:32 BP 117 / 84; Pulse 77; Resp 19 S; Temp 98.1(O); Pulse Ox 96% on R/A; Weight 115.67 kg lg3 (R); Height 5 ft. 8 in. (R); 22:21 BP 137 / 69; Pulse 79; Resp 18 S; Pulse Ox 96% on R/A; lg3 20:32 Body Mass Index 38.77 (115.67 kg, 172.72 cm) lg3 ED Course: 20:23 Patient arrived in ED. gm2 20:27 Karsten Calvert MD is Attending Physician. esha 20:31 Karina Paige, RN is Primary Nurse. lg3 20:34 Triage completed. lg3 20:34 Arm band placed on right wrist. lg3 20:38 Patient has correct armband on for positive identification. Placed in gown. Bed in low lg3 position. Call light in reach. Side rails up X 1. Client placed on continuous cardiac and pulse oximetry monitoring. NIBP monitoring applied. Door closed. Noise minimized. Warm blanket given. Family accompanied patient. 20:38 Patient maintains SpO2 saturation greater than 95% on room air. lg3 21:35 Ankle Right 3 View XRAY In Process Unspecified. EDMS 21:35 Foot Right 3 View XRAY In Process Unspecified. EDMS 22:04 Makro Coffman MD is Referral Physician. [facility] 22:22 No provider procedures requiring assistance completed. Patient did not have IV access lg3 during this emergency room visit. Administered Medications: 22:04 Drug: [place] PO 10 mg-325 mg 1 tabs PO once Route: PO; lg3 22:22 Follow up: Response: No adverse reaction; Marked relief of symptoms; Pain is decreased lg3 Medication: 22:23 VIS not applicable for this client. lg3 Outcome: 22:04 Discharge ordered by . [facility] 22:22 Discharged to home via wheelchair, with significant other, lg3 22:22 Condition: stable 22:22 Discharge instructions given to patient, Instructed on discharge instructions, follow up and referral plans. medication usage, Demonstrated understanding of instructions, follow-up care, medications, Prescriptions given X 1, 22:23 Patient left the ED. lg3 Signatures: Dispatcher [employer] EDMS Karsten Calvert MD MD cha Gibson, Lacie, RN RN lg3 Ketan Chamberlainer gm2
[2023-03-28] MEDS ORDERED: HYDROCODONE/APAP 10/325 TAB ONE (22:08)
[2023-03-28 22:30] VITALS: TEMP 98.1; O2SAT 96
[2023-03-28 22:32] VITALS: BP 137/69
== END 2023-03-28 22:23 | disposition home or self-care (01) ==
LOC: ER 20:19
DX: S93.431A Sprain of tibiofibular ligament of right ankle, initial encounter (principal); S93.411A Sprain of calcaneofibular ligament of right ankle, initial encounter; I10 Essential (primary) hypertension; Z94.4 Liver transplant status
CPT/HCPCS: 99284

== ENCOUNTER 2023-04-09 00:49 | Emergency (ER) | payer OTHER ==
--- OUTSIDE RECORDS SUMMARY | 2023-04-09 00:52 | XMS REPORT | Clinical Summary ---
:1960 Author Organization [facility] MD [facility] Address [address] [place] [address] Care Team Providers Name Role Phone Enrike Beltran MD Unavailable [phone] Allergies Not on File Medications Not on file Active Problems Not on file Social History Tobacco Use Types Packs/Day Years Used Date Smoking Tobacco: Never Assessed Sex Assigned at Date Recorded Not on file Last Filed Vital Signs Not on file Plan of Treatment Not on file Results Not on fileafter 04/09/2022 Insurance Payer Benefit Plan / Subscriber ID Effective Phone Address T ype Group Dates [facility] MEDICARE [id number] 2018-Prese [address] [address] Medicare HEALTHCARE ADVANTAGE [place], [place] [employer] [id number] Care Teams [employer] Relationship Specialty Start Date End Date Enrike Beltran PCP - External Referring Orthopedic Surgery 02/15 MD [facility] [address] [facility] [address] [place] [id number]
--- OUTSIDE RECORDS SUMMARY | 2023-04-09 00:56 | XMS REPORT | Continuity of Care Document ---
:1960 Author Organization [facility] t Address [address] [place] [address] Care Team Providers Name Role Phone Hernesto CORONA, Magdaleno Gómez Primary Care Physician Ping PENALOZA, Roland Attending Clinician Unavailable Reynaldo Bah MD Attending [...] AV MIGUEL Attending Clinician Unavailable Doctor Unassigned, [facility] Attending Clinician Unavailable Kerline Bryant LCSW Attending Clinician Unavailable Nat Saravia Attending Clinician Unavailable Devora PENALOZAHenny Attending Clinician Unavailable Polina Salas MA Attending Clinician Unavailable Yuli Pickering Attending Clinician Unavailable Pepper Jocelyn MALDONADO Attending Clinician Unavailable Shant Banerjee MD Attending Clinician Cleo Muse MA Attending Clinician Unavailable Rene Steele Attending Clinician Richy Almaguer MD Attending Clinician [phone] Greg[address] Attending Clinician Unavailable Therapy, [facility] Infusion Attending Clinician Unavailable Richy Coyne MD Attending Clinician JERMAIN DOBBS Attending Clinician Unavailable ALVARO MALONE Attending Clinician Unavailable DORI GAMEZ Attending Clinician Unavailable CHUYITA COLLINS Attending Clinician Unavailable Payers Payer Name Policy Type Policy Number Effective Date Expiration Date Nakul swartz [employer] MEDICARE OUT [id number] 2019 OF NETWORK 00:00:00 Problems Condition Condition [...] spita lower lower 00 l extremity extremity [id number] Disease Active Methodi 03-19 00:00: Hospita 00 [...] 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 [facility] Disease Active Met 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 current st use of use of Hospita immunosupp immunosupp l ressive ressive drug drug 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 Hospita l Allergies, Adverse Reactions, Alerts Allergy Allergy Status Severity Reaction(s) Onset Inactive Treating Comm ents Source Name Type Date Date Clinician Robert Propensi Active Method i h ty to [...] DRUG Active NAUSEA ONLY Univ ers INGREDI - ity of 00:00: [address] Codeine Drug Active [facility]ause[facility] CODEINE Allergy Active [facility] NO KNOWN Drug Active Univers ALLERGIE Class ity of [facility] Family History Family Member Diagnosis Comments Start Date Stop Date Source Natural sister Arthritis [facility] Natural brother Diabetes [facility] Natural father Mental illness [facility] Natural mother Diabetes [facility] Natural mother Kidney disease [facility] Natural mother Stroke [facility] Social History Social Habit Start Date Stop Date Quantity Comments Source Sexual orientation [facility] Hospital History SDOH Taoism Alcohol Frequency Hospita l History SDOH Taoism Alcohol Std Drinks Hospit al History SDOH Taoism Alcohol Binge Hospital Alcohol intake 2022-09-19 2022-09-19 Current [facility] [place] [facility] 00:00:00 00:00:00 non-drinker of Medical Ce nter alcohol (finding) History of Social 2022-08-24 2022-08-[address] function 00:00:00 00:00:00 Hospital Alcohol Comment 2018-08-23 2018-08-23 previously [facility]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 Clinician (SIG) Name Name cece 2023- No [id number] Q7D Take 1 M ethodi rol 07-[address] (VITAMIN 00:00: 05:59 (50,000 Hospi ta D2) 50,000 00 :00 Units l unit total) by capsule mouth once a week. ergocalcife 2022-0 2023- No [id number] Q7D Take 1 M ethodi rol 2-03 22-[address] (VITAMIN 00:00: 05:59 (50,000 Hospi ta D2) 50,000 00 :00 Units l unit total) by capsule mouth once a week. ergocalcife 2022-0 2023- No [id number] Q7D Take 1 M ethodi rol 2-08-[address] (VITAMIN 00:00: 05:59 (50,000 Hospi ta D2) 50,000 00 :00 Units l unit total) by capsule mouth once a week. mycophenola 2023- No [id number] 500mg Q.5D Take 1 Methodi te 2-03 22-[address] (CELLCEPT) 00:00: 05:59 (500 mg [facility] 500 mg 00 :00 total) by l tablet mouth 2 (two) times a day. mycophenola 2022-2023- No [id number] 500mg Q.5D Take 1 Methodi te 2-10 -[address] (CELLCEPT) 00:00: 05:59 (500 mg [facility] 500 mg 00 :00 total) by l tablet mouth 2 (two) times a day. mycophenola 2023- No [id number] 500mg Q.5D Take 1 Method[facility] te 2-10 -[address] (CELLCEPT) 00:00: 05:59 (500 mg [facility] 500 mg 00 :00 total) by l tablet mouth 2 (two) times a day. mycophenola 2022-0 2022- No [id number] 500mg Q.5D Take 1 Methodi te 2-10 -[address] (CELLCEPT) 00:00: 00:00 (500 mg [facility] 500 mg 00 :00 total) by l tablet mouth 2 (two) times a day. mycophenola 2022-2022- No [id number] 500mg Q.5D Take 1 Methodi te 2-10 -[address] (CELLCEPT) 00:00: 00:00 (500 mg [facility] 500 mg 00 :00 total) by l tablet mouth 2 (two) times a day. mycophenola 2022- No [id number] 500mg Q.5D Take 1 Methodi te 2-10 -[address] (CELLCEPT) 00:00: 00:00 (500 mg [facility] 500 mg 00 :00 total) by l tablet mouth 2 (two) times a day. mycophenola 2022- No [id number] 500mg Q.5D Take 1 Methodi te 2-01 20-[address] (CELLCEPT) 00:00: 00:00 (500 mg [facility] 500 mg 00 :00 total) by l tablet mouth 2 (two) times a day. mycophenola 2022- No [id number] 500mg Q.5D Take 1 Methodi te 2-01 20-[address] (CELLCEPT) 00:00: 00:00 (500 mg [facility] 500 mg 00 :00 total) by l tablet mouth 2 (two) times a day. mycophenola 2022- No [id number] 500mg Q.5D Take 1 Methodi te 2-01 20-[address] (CELLCEPT) 00:00: 00:00 (500 mg [facility] 500 mg 00 :00 total) by l tablet mouth 2 (two) times a day. tacrolimus 2021-06- No [id number] 2mg Q.5D Take 2 Methodi (PROGRAF) 1 07-[address] MG capsule 00:00: 05:59 (2 mg Hospi ta 00 :00 total) by l mouth 2 (two) times a day. tacrolimus 2021-06- No [id number] 2mg Q.5D Take 2 Methodi (PROGRAF) 1 07-[address] MG capsule 00:00: 05:59 (2 mg Hospi ta 00 :00 total) by l mouth 2 (two) times a day. tacrolimus 2021-06- No [id number] 2mg Q.5D Take 2 [facility]i (PROGRAF) 1 07-[address] MG capsule 00:00: 05:59 (2 mg Hospi ta 00 :00 total) by l mouth 2 (two) times a day. tacrolimus Yes [id number] Take 2 [facility]i (PROGRAF) 1 3-[address] MG capsule 00:00: (2 mg Hospit a 00 total) by l mouth every morning AND 1 capsule (1 mg total) every evening. tacrolimus Yes [id number] Take 2 [facility]i (PROGRAF) 1 3-[address] MG capsule 00:00: (2 mg Hospit a 00 total) by l mouth every morning AND 1 capsule (1 mg total) every evening. tacrolimus Yes [id number] Take 2 [facility]i (PROGRAF) 1 3-[address] MG capsule 00:00: (2 mg Hospit a 00 total) by l mouth every morning AND 1 capsule (1 mg total) every evening. tacrolimus 2021- No [id number] Take 2 [facility]i (PROGRAF) 1 3- 11-[address] MG capsule 00:00: 00:00 (2 mg Hospi ta 00 :00 total) by l mouth every morning AND 1 capsule (1 mg total) every evening. tacrolimus 2021- No [id number] Take 2 [facility]i (PROGRAF) 1 3- 11-[address] MG capsule 00:00: 00:00 (2 mg Hospi ta 00 :00 total) by l mouth every morning AND 1 capsule (1 mg total) every evening. tacrolimus 2021- No [id number] Take 2 [facility]i (PROGRAF) 1 3-03 11-[address] MG capsule 00:00: 00:00 (2 mg Hospi ta 00 :00 total) by l mouth every morning AND 1 capsule (1 mg total) every evening. ergocalcife 2022- No [id number] Q7D Take 1 M ethodi rol 07-[address] (VITAMIN 00:00: 00:00 (50,000 Hospi ta D2) 50,000 00 :00 Units l unit total) by capsule mouth once a week. ergocalcife 2022- No [id number] Q7D Take 1 M ethodi rol 07-[address] (VITAMIN 00:00: 00:00 (50,000 Hospi ta D2) 50,000 00 :00 Units l unit total) by capsule mouth once a week. ergocalcife 2022-0 2023- No [id number] Q7D Take 1 M ethodi rol 2-12 20- capsule st (VITAMIN 00:00: 00:00 (50,000 Hospi ta D2) 50,000 00 :00 Units l unit total) by capsule mouth once a week. ergocalcife 2022-0 2023- No [id number] Q7D Take 1 M ethodi rol 2-12 20- capsule st (VITAMIN 00:00: 05:59 (50,000 Hospi ta D2) 50,000 00 :00 Units l unit total) by capsule mouth once a week. ergocalcife 2022-0 2023- No [id number] Q7D Take 1 M ethodi rol 2-12 20- capsule st (VITAMIN 00:00: 05:59 (50,000 Hospi ta D2) 50,000 00 :00 Units l unit total) by capsule mouth once a week. ergocalcife 2022-0 2023- No [id number] Q7D Take 1 M ethodi rol 2-12 20- capsule st (VITAMIN 00:00: 05:59 (50,000 Hospi [...] A l tablet DAY acetaminoph 2020-06- No [id number] chronic M ethodi en-codeine -08-[address] (TYLENOL 00:00: 05:59 ONE TABLET Ho spita WITH 00 :00 BY MOUTH l CODEINE #3) THREE 300-30 mg TIMES A per tablet DAY FOR 10 DAYS acetaminoph 2020-06- [place] [id number] chronic M ethodi en-codeine -08-[address] (TYLENOL 00:00: 05:59 ONE TABLET Ho spita WITH 00 :00 BY MOUTH l CODEINE #3) THREE 300-30 mg TIMES A per tablet DAY FOR 10 DAYS acetaminoph 2020-06- [place] [id number] chronic M ethodi en-codeine -08-[address] (TYLENOL 00:00: 05:59 ONE TABLET Ho spita WITH 00 :00 BY MOUTH l CODEINE #3) THREE 300-30 mg TIMES A per tablet DAY FOR 10 DAYS acetaminoph 2020-06- No [id number] chronic M ethodi en-codeine -08-[address] (TYLENOL 00:00: 05:59 ONE TABLET Ho spita WITH 00 :00 BY MOUTH l CODEINE #3) THREE 300-30 mg TIMES A per tablet DAY FOR 10 DAYS casirivimab 2020-06- No [id number] 1200mg 1,200 mg, Univers 600 08-08 IV ity of mg-imdevima 20:00: 15:00 Infusion, [place] b 600 mg 00 :00 ONCE, Medical (REGEN-COV Administer [facility] ([facility])) 1200 over 20 mg in 60 [...] temperatur e. &nbs p;
tacrolimus 2023- No [id number] 2mg Q.5D Take 2 Methodi (PROGRAF) 1 03-18- capsules st MG capsule 00:00: 04:59 (2 mg Hospi ta 00 :00 total) by l mouth 2 (two) times a day. tacrolimus 2021- No [id number] 2mg Q.5D Take 2 Methodi (PROGRAF) 1 03-18- capsules st MG capsule 00:00: 00:00 (2 mg Hospi ta 00 :00 total) by l mouth 2 (two) times a day. tacrolimus 2021- No [id number] 2mg Q.5D Take 2 Methodi (PROGRAF) 1 03-18- capsules st MG capsule 00:00: 00:00 (2 mg Hospi ta 00 :00 total) by l mouth 2 (two) times a day. tacrolimus 2021- No [id number] 2mg Q.5D Take 2 [facility]i (PROGRAF) 1 03-18- capsules st MG capsule 00:00: 00:00 (2 mg Hospi ta 00 :00 total) by l mouth 2 (two) times a day. tacrolimus 2020- No [id number] 2mg Q.5D Take 2 [facility]i (PROGRAF) 1 03-[address] MG capsule 00:00: 00:00 (2 mg Hospi ta 00 :00 total) by l mouth 2 (two) times a day. tacrolimus 2020- No [id number] 2mg Q.5D Take 2 [facility]i (PROGRAF) 1 03-[address] MG capsule 00:00: 00:00 (2 mg Hospi ta 00 :00 total) by l mouth 2 (two) times a day. mycophenola Yes [id number] 500mg Q.5D Take 1 Methodi te 02-[address] (CELLCEPT) 00:00: (500 mg [facility] 500 mg 00 total) by l tablet mouth 2 (two) times a day. mycophenola Yes [id number] 500mg Q.5D Take 1 Methodi te 02-[address] (CELLCEPT) 00:00: (500 [facility] 500 mg 00 total) by l tablet mouth 2 (two) times a day. mycophenola Yes [id number] 500mg Q.5D Take 1 Methodi te 02-[address] (CELLCEPT) 00:00: (500 mg [facility] 500 mg 00 total) by l tablet mouth 2 (two) times a day. mycophenola 2022- No [id number] 500mg Q.5D Take 1 Methodi te 02-[address] (CELLCEPT) 00:00: 00:00 (500 mg [facility] 500 mg 00 :00 total) by l tablet mouth 2 (two) times a day. mycophenola 2022- No [id number] 500mg Q.5D Take 1 Methodi te 02-[address] (CELLCEPT) 00:00: 00:00 (500 mg [facility] 500 mg 00 :00 total) by l tablet mouth 2 (two) times a day. mycophenola 2022- No [id number] 500mg Q.5D Take 1 Methodi te 02-[address] (CELLCEPT) 00:00: 00:00 (500 mg [facility] 500 mg 00 :00 total) by l tablet mouth 2 (two) times a day. mycophenola 2021- No [id number] 500mg Q.5D Take 1 Methodi te 02-[address] (CELLCEPT) 00:00: 04:59 (500 mg [facility] 500 mg 00 :00 total) by l tablet mouth 2 (two) times a day. acetaminoph 2020- No Tylenol-Co Methodi en-codeine 12-03 0615 deine #3 st (TYLENOL 13:04: 00:00 300 mg-30 [facility] WITH 50 :00 mg tablet l CODEINE #3) Take 1 300-30 mg tablet 3 per tablet times a day by oral route for 10 days. acetaminoph 2020- [place] [id number] chronic M ethodi en-codeine 6 12- pain. st (TYLENOL 00:00: 00:00 Tylenol-Co Ho spita WITH 00 :00 deine #3 l CODEINE #3) 300 mg-30 300-30 mg mg tablet per tablet Take 1 tablet 3 times a day by oral route for 10 days. acetaminoph 2020- No [id number] chronic M ethodi en-codeine 6-15 12- pain. st (TYLENOL 00:00: 00:00 Tylenol-Co Ho spita WITH 00 :00 deine #3 l CODEINE #3) 300 mg-30 300-30 mg mg tablet per tablet Take 1 tablet 3 times a day by oral route for 10 days. acetaminoph 2020- [place] [id number] chronic M ethodi en-codeine 6-15 - pain. st (TYLENOL 00:00: 00:00 Tylenol-Co Ho spita WITH 00 :00 deine #3 l CODEINE #3) 300 mg-30 300-30 mg mg tablet per tablet Take 1 tablet 3 times a day by oral route for 10 days. acetamin[place] 2020- [place] [id number] chronic M ethodi en-codeine 6-15 - pain. st (TYLENOL 00:00: 00:00 Tylenol-Co [...] 400mg Q.5D Take 1 Meth sebas oxide 6-[address] (MAG-OX) 00:00: 04:59 (400 mg Hospi ta 400 mg 00 :00 total) by l (241.3 mg mouth 2 magnesium) (two) tablet times a day. gabapentin 2021- No 300mg Q.[id number] Take 1 [facility]i (NEURONTIN) 09-10- [id number] capsule st 300 mg 00:00: 04:59 3D (300 mg Hospita capsule 00 :00 total) by l mouth 3 (three) times a day. gabapentin 2021- No 300mg Q.[id number] Take 1 [facility] (NEURONTIN) 09-10- [id number] capsule st 300 mg 00:00: 04:59 3D (300 mg Hospita capsule 00 :00 total) by l mouth 3 (three) times a day. gabapentin 2021- No 300mg Q.[id number] Take 1 [facility] (NEURONTIN) 09-10- [id number] capsule st 300 mg 00:00: 04:59 3D (300 mg Hospita capsule 00 :00 total) by l mouth 3 (three) times a day. gabapentin 2021- No 300mg Q.[id number] Take 1 [facility] (NEURONTIN) 09-10- [id number] capsule st 300 mg 00:00: 04:59 3D (300 mg Hospita capsule 00 :00 total) by l mouth 3 (three) times a day. gabapentin 2020- No 300mg Q.[id number] Take 1 [facility] (NEURONTIN) 09-10- [id number] capsule st 300 mg 00:00: 00:00 3D (300 mg Hospita capsule 00 :00 total) by l mouth 3 (three) times a day. rosuvastati Yes [id number] 20mg QD Take 1 Methodi n (CRESTOR) 3-04 tablet (20 st 20 mg 00:00: mg total) Hospita tablet 00 by mouth l every evening. rosuvastati Yes [id number] 20mg QD Take 1 Methodi n (CRESTOR) 3-04 tablet (20 st 20 mg 00:00: mg total) Hospita tablet 00 by mouth l every evening. rosuvastati Yes [id number] 20mg QD Take 1 Methodi n (CRESTOR) 3-04 tablet (20 st 20 mg 00:00: mg total) Hospita tablet 00 by mouth l every evening. rosuvastati Yes [id number] 20mg QD Take 1 Methodi n (CRESTOR) 3-04 tablet (20 st 20 mg 00:00: mg total) Hospita tablet 00 by mouth l every evening. rosuvastati Yes [id number] 20mg QD Take 1 Methodi n (CRESTOR) 3-04 tablet (20 st 20 mg 00:00: mg total) Hospita tablet 00 by mouth l every evening. rosuvastati Yes [id number] 20mg QD Take 1 Methodi n (CRESTOR) 3-04 tablet (20 st 20 mg 00:00: mg total) Hospita tablet 00 by mouth l every evening. tacrolimus 2021- No [id number] .5mg Q.5D Take 1 Methodi (PROGRAF) - 03-[address] 0.5 MG 00:00: 05:59 (0.5 mg Hospita capsule 00 :00 total) by l mouth 2 (two) times a day. rosuvastati 2021- No [id number] 20mg QD Take 1 Methodi n (CRESTOR) 3- 03-05 tablet (20 s t 20 mg 00:00: 05:59 mg total) Hospit a tablet 00 :00 by mouth l every evening. tacrolimus 2021- No [id number] .5mg Q.5D Take 1 Methodi (PROGRAF) - 03-[address] 0.5 MG 00:00: 00:00 (0.5 mg Hospita capsule 00 :00 total) by l mouth 2 (two) times a day. tacrolimus 2021- No [id number] .5mg Q.5D Take 1 [facility] (PROGRAF) 3- 03-[address] 0.5 MG 00:00: 00:00 (0.5 mg Hospita capsule 00 :00 total) by l mouth 2 (two) times a day. tacrolimus 2021- No [id number] .5mg Q.5D Take 1 [facility] (PROGRAF) 3- [...] day for 30 days. mycophenola 2020- No [id number] 500mg Q.5D Take 1 Methodi te -02-[address] (CELLCEPT) 00:00: 00:00 (500 mg [facility] 500 mg 00 :00 total) by l tablet mouth 2 (two) times a day. acetaminoph 2020- No [id number] 1{tbl} Q4H Take 1-2 Methodi en-codeine 3-04 03-[address] (TYLENOL 00:00: 04:59 mouth Hospita WITH 00 :00 every 4 l CODEINE #3) (four) 300-30 mg hours as per tablet needed for moderate pain for up to 20 days .acute pain, chronic pain. ergocalcife 2020-2021- No [id number] Q7D Take 1 M ethodi rol -13 08- capsule st (VITAMIN 00:00: 05:59 (50,000 Hospi ta D2) 50,000 00 :00 Units l unit total) by capsule mouth once a week. ergocalcife 2020-0 2022- No [id number] Q7D Take 1 M ethodi rol 2-13 08- capsule st (VITAMIN 00:00: 00:00 (50,000 Hospi ta D2) 50,000 00 :00 Units l unit total) by capsule mouth once a week. ergocalcife 2020-0 2021- No [id number] Q7D Take 1 M ethodi rol -13 08- capsule st (VITAMIN 00:00: 00:00 (50,000 Hospi ta D2) 50,000 00 :00 Units l unit total) by capsule mouth once a week. ergocalcife 2020-0 2021- No [id number] Q7D Take 1 M ethodi rol 2-13 [...] 0915, For Branch infusion 1 dose
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 traMADoL 2019-06 Yes [id number] 50mg Q4H Take 1 Method i (ULTRAM) 50 0-27 tablet (50 st mg tablet 00:00: mg total) Hos j[facility] francisco 00 by mouth l every 4 (four) hours as needed for moderate pain for up to 30 days .chronic pain. traMADoL 2019-06- [place] [id number] 50mg Q4H Take 1 Metho di (ULTRAM) 50 0-27 03-03 tablet (50 s t mg tablet 00:00: 00:00 mg total) Ho spita 00 :00 by mouth l every 4 (four) hours as needed for moderate pain for up to 30 days .chronic pain. traMADoL 2019-06- No [id number] 50mg Q4H Take 1 Metho di (ULTRAM) 50 0-27 03-03 tablet (50 s t mg tablet 00:00: 00:00 mg total) Ho spita 00 :00 by mouth l every 4 (four) hours as needed for moderate pain for up to 30 days .chronic pain. traMADoL 2019-06 [place] [id number] 50mg Q4H Take 1 Metho di (ULTRAM) [...] Q8H Take 1 Me thodi oL 09-[address] (Robaxin-75 00:00: 00:00 (750 mg Ho spita 0) 750 MG 00 :00 total) by l tablet mouth every 8 (eight) hours. methocarbam 2021- No 750mg Q8H Take 1 Me thodi oL 09-[address] (Robaxin-75 00:00: 00:00 (750 mg Ho spita 0) 750 MG 00 :00 total) by l tablet mouth every 8 (eight) hours. rosuvastati No 20mg QD Take 1 Met hodi n (CRESTOR) 08-15 tablet (20 s t 20 MG 00:00: 05:59 mg total) Hospit a tablet 00 :00 by mouth l every evening. ergocalcife No [id number] Q7D Take 1 M ethodi rol 08-15 [...] 14:11: daily. Medica l 47 Center potassium 2012-0 Yes 20meq Q.5D Take [address] chloride SA 4-20 mEq by [facility] (K-DUR,KLOR 14:11: mouth 2 Med ical -CON) 20 47 (two) Center MEQ tablet times daily. bumetanide Yes 2mg QD Take [address] (BUMEX) 2 4-20 by mouth [facility] MG tablet 14:11: daily. Medica l 47 Center potassium 2013-0 Yes 20meq Q.5D Take [address] chloride SA 4-20 mEq by [facility] (K-DUR,KLOR 14:11: mouth 2 Med ical -CON) 20 47 (two) Center MEQ tablet times daily. ergocalcife 2013-0 Yes [id number] Q7D Take [facility] 4-20 50,000 [facility] (VITAMIN 14:11: Units by Medic al D2) 50,[address] unit a week. capsule levofloxaci 2013-0 Yes 750mg Q7D Take [address] n 4-20 mg by [facility] (LEVAQUIN) 14:11: mouth once M edical 750 MG 47 a week. Center tablet ergocalcife 2013-0 Yes [id number] Q7D Take [facility] ro[facility] 4-20 50,000 [facility] (VITAMIN 14:11: Units by Medic al D2) 50,[address] unit a week. capsule levofloxaci 2013-0 Yes 750mg Q7D Take [address] n 4-20 mg by [facility] (LEVAQUIN) 14:11: mouth once M edical 750 MG 47 a week. Center tablet bumetanide 2013-0 Yes 2mg QD Take [address] (BUMEX) 2 4-20 by mouth [facility] MG tablet 14:11: daily. Medica l 47 Center potassium 2013-0 Yes 20meq Q.5D Take [address] chloride SA 4-20 mEq by [facility] (K-DUR,KLOR 14:11: mouth 2 Med ical -CON) 20 47 (two) Center MEQ tablet times daily. ergocalcife 2013-0 Yes [id number] Q7D Take [facility] ro[facility] 4-20 50,000 [facility] (VITAMIN 14:11: Units by Medic al D2) 50,[address] unit a week. capsule levofloxaci 2013-0 Yes 750mg Q7D Take [address] n 4-20 mg by [facility] (LEVAQUIN) 14:11: mouth once M edical 750 MG 47 a week. Center tablet Immunizations Ordered Immunization Filled Date Status Comments Sour ce Name Immunization Name FLUCELVAX QUAD PF 2018-03-[address] 00:00:00 Hospital Pneumococcal 2018-03-26 Completed [facility] Polysaccharide 00:00:00 Hospital FLUCELVAX QUAD PF 2018-03-[address] 00:00:00 Hospital Pneumococcal 2018-03-26 Completed [facility] Polysaccharide 00:00:00 Hospital FLUCELVAX QUAD PF 2018-03-[address] 00:00:00 Hospital Pneumococcal 2018-03-26 Completed [facility] Polysaccharide 00:00:00 Hospital FLUCELVAX QUAD PF 2018-03-[address] 00:00:00 Hospital Pneumococcal 2018-03-26 Completed [facility] Polysaccharide 00:00:00 Hospital FLUCELVAX QUAD PF Unknown Completed [facility] Pneumococcal Unknown Completed [facility] Polysaccharide [facility] FLUCELVAX QUAD PF Unknown Completed [facility] Pneumococcal Unknown Completed [facility] Polysaccharide [facility] FL[facility]ELVAX QUAD [facility] Pol[facility] Vital Signs Vital Name Observation Time Observation Value Comments Source Systolic blood 2021-06-07 167 mm[Hg] [facility] pressure 15:49:00 [facility] Diastolic blood 2021-06-07 83 mm[Hg] University o f pressure 15:49:00 [facility] Heart rate 2021-06-07 82 /min [facility] of 15:49:00 [facility] Body temperature 2021-06-07 37.17 Michelle [facility] of 15:49:00 [facility] Respiratory rate 2021-06-07 18 /min University of 15:49:00 [facility] Oxygen saturation 2021-06-07 96 /min [facility] in Arterial blood 15:49:00 [facility] by Pulse oximetry [place] Body height 2021-06-07 165.1 cm University of 14:27:00 [facility] Body weight 2021-06-07 97.523 kg University of 14:27:00 [facility] BMI 2021-06-07 35.78 kg/m2 University of 14:27:00 [facility] Systolic blood 2020-08-03 179 mm[Hg] University of pressure 17:15:00 [facility] Diastolic blood 2020-08-03 84 mm[Hg] University o f pressure 17:15:00 [facility] Heart rate 2020-08-03 104 /min University of 17:15:00 [facility] Body temperature 2020-08-03 37 Michelle [facility] of 17:15:00 [facility] Respiratory rate 2020-08-03 18 /min University of 17:15:00 [facility] Oxygen saturation 2020-08-03 97 /min [facility] in Arterial blood 17:15:00 [facility] by Pulse oximetry [place] Body height 2020-08-03 172.7 cm [facility] 14:10:00 [facility] Body weight 2020-08-03 113.399 kg [facility] 14:10:00 [facility] BMI 2020-08-03 38.01 kg/m2 [facility] 14:10:00 [facility] Systolic blood 2022-07-09 156 mm[Hg] [facility] pressure 19:43:00 [facility] Diastolic blood 2022-07-09 81 mm[Hg] [facility] pressure 19:43:00 [facility] Heart rate 2022-07-09 83 /min [facility] 19:43:00 [facility] Body temperature 2022-07-09 36.67 Michelle [facility] 19:43:00 [facility] Respiratory rate 2022-07-09 17 /min [facility] 19:43:00 [facility] Body height 2022-07-09 172.7 cm [facility] 19:43:00 [facility] Body weight 2022-07-09 116.574 kg [facility] 19:43:00 [facility] BMI 2022-07-09 39.08 kg/m2 [facility] 19:43:00 Hospital Oxygen saturation 2022-07-09 94 /min [facility] Arterial blood 19:43:00 [facility] by Pulse oximetry Systolic blood 2021-11-27 133 mm[Hg] [facility] pressure 18:51:00 Hospital Diastolic blood 2021-11-27 65 mm[Hg] [facility] pressure 18:51:00 Hospital Heart rate 2021-11-27 81 /min [facility] 18:51:00 Hospital Body temperature 2021-11-27 37.33 Michelle [facility] 18:51:00 Hospital Respiratory rate 2021-11-27 17 /min [facility] 18:51:00 Hospital Body height 2021-11-27 172.7 cm [facility] 18:51:00 [facility] Body weight 2021-11-27 110.451 kg [facility] 18:51:00 Hospital BMI 2021-11-27 37.02 kg/m2 [facility] 18:51:00 Hospital Oxygen saturation 2021-11-27 96 /min [facility] in Arterial blood 18:51:00 [facility] oximetry Systolic blood 2021-04-03 161 mm[Hg] taken his bp [facility] pressure 20:10:00 medication this [facility] morning Diastolic blood 2021-04-03 77 mm[Hg] taken his bp [facility] pressure 20:10:00 medication this [facility] morning Heart rate 2021-04-03 73 /min [facility] 20:10:00 Hospital Body temperature 2021-04-03 36.22 Michelle [facility] 20:10:00 Hospital Respiratory rate 2021-04-03 16 /min [facility] 20:10:00 Hospital Body weight 2021-04-03 111.494 kg [facility] 20:10:00 Hospital BMI 2021-04-03 37.37 kg/m2 [facility] 20:10:00 Hospital Oxygen saturation 2021-04-03 97 /min [facility] in Arterial blood 20:10:00 [facility] Body height 2020-08-22 172.7 cm [facility] 18:42:00 Hospital Procedures Procedure Date / Time Performing Clinician Source Performed MAGNESIUM LEVEL 2023-02-20 15:01:00 [facility] HEPATIC FUNCTION PANEL 2023-02-20 15:01:00 RigoReynaldo Goldberg [facility] BASIC METABOLIC PANEL, 2023-02-20 15:01[facility]00 [facility] PLASMA CBC WITH PLATELET AND 2023-02-20 15:01:00 [facility] [place] Goldberg [facility] DIFFERENTIAL ALPHA FETOPROTEIN 2023-02-20 15:01:00 [facility] m[place]antonYusuf [facility] [id number] TACROLIMUS LEVEL, 2023-02-20 15:01:00 [facility] [place] Goldberg [facility] RANDOM MAGNESIUM LEVEL 2022-10-26 15:34:00 [facility] m[facility]antonYusuf [facility] HEPATIC FUNCTION PANEL 2022-10-26 15:34:00 [facility] [place]yn[place]do Goldberg [facility] BASIC METABOLIC PANEL, 2022-10-26 15:34:00 [facility] PLASMA CBC WITH PLATELET AND 2022-10-26 15:34:00 [facility] DIFFERENTIAL ALPHA FETOPROTEIN 2022-10-26 15:34:00 [facility] [id number] TACROLIMUS LEVEL, 2022-10-26 15:34:00 [facility] RANDOM XR KNEE 4+ VW LEFT 2022-07-09 16:51:31 Aime Cortez [facility] MRI ABDOMEN W WO CONTRAST 2022-07-03 16:53:[address] [facility] [address] PELVIS W CONTRAST 2022-07-03 14:44:00 [facility] CT CHEST WO CONTRAST 2022-07-03 14:43:00 [facility] POC CREATININE 2022-07-03 13:56:00 [facility] ESTIMATED GFR 2022-07-03 13:56:00 [facility] CBC WITH PLATELET AND 2022-07-03 13:30:00 [facility] DIFFERENTIAL COMPREHENSIVE METABOLIC 2022-07-03 13:30:00 [facility] PANEL MAGNESIUM LEVEL 2022-07-03 13:30:00 [facility] HEMOGLOBIN A1C 2022-07-03 13:30:00 [facility] LIPID PANEL 2022-07-03 13:30:00 [facility] PARTIAL THROMBOPLASTIN 2022-07-03 13:30:00 [facility] TIME (PTT) PROTHROMBIN TIME WITH INR 2022-07-03 13:30:00 [facility] VITAMIN D 1,25 DIHYDROXY 2022-07-03 13:30:00 [facility] LEVEL, SERUM CYTOMEGALOVIRUS BY PCR 2022-07-03 13:30:00 [facility] VITAMIN D 25 HYDROXY LEVEL 2022-07-03 13:30:00 [facility] Aline eastman [facility] THYROID STIMULATING 2022-07-03 13:30:00 [facility] HORMONE URINE DRUGS OF ABUSE 2022-07-03 13:30:00 [facility] SCREEN GGT 2022-07-03 13:30:00 [facility] PROTEIN, URINE, RANDOM 2022-07-03 13:30:00 [facility] CREATININE LEVEL, URINE, 2022-07-03 13:30:00 [facility] RANDOM [id number] TACROLIMUS LEVEL, 2022-07-03 13:30:00 [facility] RANDOM HEPATOCELLULAR CARCINOMA 2022-07-03 13:30:00 [facility] MARKER PANEL PHOSPHATIDYLETHANOL, BLOOD 2022-07-03 13:30:00 [facility] Vict[facility] ESTIMATED GFR 2022-07-03 13:30:00 [facility] DONOR SPECIFIC ANTIBODY 2022-07-03 13:30:00 [facility] MAGNESIUM LEVEL 2022-04-22 13:32:00 Taylor, [facility] HEPATIC FUNCTION PANEL 2022-04-22 13:32:00 Taylor, [facility] BASIC METABOLIC PANEL, 2022-04-22 13:32:00 Taylor, [facility] PLASMA PHOSPHATIDYLETHANOL, BLOOD 2022-04-22 13:32:00 Taylor, [facility] PROTHROMBIN TIME WITH INR 2022-04-22 13:32:00 Taylor, [facility] CBC WITH PLATELET AND 2022-04-22 13:32:00 [facility] DIFFERENTIAL [id number] TACROLIMUS LEVEL, 2022-04-22 13:32:00 Taylor, [facility] RANDOM MAGNESIUM LEVEL 2021-11-25 13:46:00 Taylor, [facility] HEPATIC FUNCTION PANEL 2021-11-25 13:46:00 Taylor, [facility] BASIC METABOLIC PANEL, 2021-11-25 13:46:00 Taylor, [facility] PLASMA PHOSPHATIDYLETHANOL, BLOOD 2021-11-25 13:46:00 Atylor, [facility] PROTHROMBIN TIME WITH INR 2021-11-25 13:46:00 [facility] CBC WITH PLATELET AND 2021-11-25 13:46:00 [facility] DIFFERENTIAL FK506 TACROLIMUS LEVEL, 2021-11-25 13:46:00 [facility] RANDOM CT CHEST WO CONTRAST 2021-08-21 17:14:05 [facility] MRI ABDOMEN W WO CONTRAST 2021-08-21 16:25:00 [facility] COVID-19 ANTI-SPIKE IGG 2021-08-21 15:05:00 [facility] ANTIBODY TITER HC COMPLETE BLD COUNT 2021-08-21 15:05:00 [facility] W/AUTO DIFF COMPREHENSIVE METABOLIC 2021-08-21 15:05:00 [facility] PANEL MAGNESIUM LEVEL 2021-08-21 15:05:00 [facility] HEMOGLOBIN A1C 2021-08-21 15:05:00 [facility] LIPID PANEL 2021-08-21 15:05:00 [facility] PARTIAL THROMBOPLASTIN 2021-08-21 15:05:00 [facility] TIME (PTT) PROTHROMBIN TIME WITH INR 2021-08-21 15:05:00 [facility] VITAMIN D 1,25 DIHYDROXY 2021-08-21 15:05:00 [facility] LEVEL, SERUM CYTOMEGALOVIRUS BY PCR 2021-08-21 15:05:00 [facility] VITAMIN D 25 HYDROXY LEVEL 2021-08-21 [facility] THYROID STIMULATING 2021-08-21 15:05:00 [facility] HORMONE URINE DRUGS OF ABUSE 2021-08-21 15:05:00 [facility] SCREEN GGT 2021-08-21 15:05:00 [facility] PROTEIN, URINE, RANDOM 2021-08-21 15:05:00 [facility] CREATININE LEVEL, URINE, 2021-08-21 15:05:00 [facility] RANDOM [id number] TACROLIMUS LEVEL, 2021-08-21 15:05:00 [facility] RANDOM HEPATOCELLULAR CARCINOMA 2021-08-21 15:05:00 [facility] MARKER PANEL PHOSPHATIDYLETHANOL, BLOOD 2021-08-21 15:05:00 Taylor, [facility] ESTIMATED GFR 2021-08-21 15:05:00 [facility] DONOR SPECIFIC ANTIBODY 2021-08-21 15:05:00 [facility] CONSENT/REFUSAL FOR 2021-06-07 06:01:00 Doctor Unassigned, [facility] DIAGNOSIS AND TREATMENT [facility] MAGNESIUM LEVEL 2021-04-01 13:21:00 Taylor, [facility] METABOLIC 2021-04-01 13:21:00 Taylor, [facility] PANEL PROTHROMBIN TIME WITH INR 2021-04-01 13:21:00 Taylor, [facility] CBC WITH PLATELET AND 2021-04-01 13:21:00 Taylor, [facility] DIFFERENTIAL FK506 TACROLIMUS LEVEL, 2021-04-01 13:21:00 [facility] RANDOM MAGNESIUM LEVEL 2021-02-03 12:47:00 Luis Miguel Vazquez [facility] METABOLIC 2021-02-03 12:47:00 Taylor, [facility] PANEL PHOSPHATIDYLETHANOL, BLOOD 2021-02-03 12:47:00 Taylor, [facility] PROTHROMBIN TIME WITH INR 2021-02-03 12:47:00 Taylor, [facility] CBC WITH PLATELET AND 2021-02-03 12:47:00 [facility] DIFFERENTIAL FK506 TACROLIMUS LEVEL, 2021-02-03 12:47:00 [facility] RANDOM MAGNESIUM LEVEL 2020-12-25 12:41:00 Taylor, [facility] 2020-12-25 12:41:00 Taylor, [facility] PANEL PHOSPHATIDYLETHANOL, BLOOD 2020-12-25 12:41:00 [facility] PROTHROMBIN TIME WITH INR 2020-12-25 12:41:00 Taylor, [facility] CBC WITH PLATELET AND 2020-12-25 12:41:00 [facility] DIFFERENTIAL FK506 TACROLIMUS LEVEL, 2020-12-25 12:41:[facility]NESIUM LEVEL 2020-10-31 12:39:00 Taylor, [facility] 2020-10-31 12:39:00 [facility] PANEL PHOSPHATIDYLETHANOL, BLOOD 2020-10-31 12:39:00 [facility] PROTHROMBIN TIME WITH INR 2020-10-31 12:39:00 [facility] CBC WITH PLATELET AND 2020-10-31 12:39:00 [facility] DIFFERENTIAL [id number] TACROLIMUS LEVEL, 2020-10-31 12:39:00 [facility] RANDOM MAGNESIUM LEVEL 2020-09-30 13:40:00 Taylor, [facility] 2020-09-30 13:40:00 Taylor, [facility] PANEL PHOSPHATIDYLETHANOL, BLOOD 2020-09-30 13:40:00 [facility] PROTHROMBIN TIME WITH INR 2020-09-30 13:40:00 [facility] CBC WITH PLATELET AND 2020-09-30 13:40:00 [facility] DIFFERENTIAL FK506 TACROLIMUS LEVEL, 2020-09-30 13:40:00 [facility] RANDOM MRI PELVIS WO CONTRAST 2020-09-06 17:10:00 Jamarcus Phillips [facility] MRI LUMBAR SPINE WO 2020-09-06 16:23:00 Jamarcus Phillips [facility] CONTRAST REFERRAL- REQUEST/RESPONSE 2020-08-01 06:01:00 Doctor Unassigned , [facility] Plan of Care Planned Activity Planned Date Details Comments Source Future Scheduled 2023-04-09 Screening for [facility] Test 00:51:51 malignant neoplasm of colon (procedure) [code = 401050446] Future Scheduled 2023-04-09 [facility] Test 00:51:51 malignant neoplasm of colon (procedure) [code = 757990833] Future Scheduled 2023-04-09 [facility] Test 00:51:51 malignant neoplasm of colon (procedure) [code = 852566304] Future Scheduled 2023-04-09 COVID-19 VACCINE (#1) [facility] Test 00:51:51 [code = COVID-19 VACCINE (#1)] Future Scheduled 2023-04-09 SHINGLES VACCINES (1 [facility] Test 00:51:51 of 2) [code = SHINGLES VACCINES (1 of 2)] Future Scheduled 2023-04-09 Screening for [facility] Test 00:51:51 malignant neoplasm of colon (procedure) [code = 065648687] Future Scheduled 2023-04-09 [facility] Test 00:51:51 malignant neoplasm of colon (procedure) [code = 910777567] Future Scheduled 2023-04-09 Pneumococcal Vaccine: [facility] Test 00:51:51 Pediatrics (0 to 5 Years) and At-Risk Patients (6 to 64 Years) (2 - PCV) [code = Pneumococcal Vaccine: Pediatrics (0 to 5 Years) and At-Risk Patients (6 to 64 Years) (2 - PCV)] Future Scheduled 2023-04-09 HEPATITIS B VACCINES [facility] Test 00:51:51 (1 of 3 - Risk 3-dose series) [code = HEPATITIS B VACCINES (1 of 3 - Risk 3-dose series)] Future Scheduled 2023-04-09 RSV VACCINES > 60 YR [facility] Test 00:51:51 (1 - 1-dose 60+ series) [code = RSV VACCINES > 60 YR (1 - 1-dose 60+ series)] Future Scheduled 2023-04-09 INFLUENZA VACCINE (#1) [facility] Test 00:51:51 [code = INFLUENZA VACCINE (#1)] Future Scheduled 2023-04-01 [facility] Test 15:38:20 malignant neoplasm of colon (procedure) [code = 166897437] Future Scheduled 2023-04-01 [facility] Test 15:38:20 malignant neoplasm of colon (procedure) [code = 939160668] Future Scheduled 2023-04-01 [facility] Test 15:38:20 malignant neoplasm of colon (procedure) [code = 813627756] Future Scheduled 2023-04-01 COVID-19 VACCINE (#1) [facility] Test 15:38:20 [code = COVID-19 VACCINE (#1)] Future Scheduled 2023-04-01 SHINGLES VACCINES (1 [facility] Test 15:38:20 of 2) [code = SHINGLES VACCINES (1 of 2)] Future Scheduled 2023-04-01 Screening for [facility] Test 15:38:20 malignant neoplasm of colon (procedure) [code = 116586021] Future Scheduled 2023-04-01 Screening for [facility] Test 15:38:20 malignant neoplasm of colon (procedure) [code = 741878786] Future Scheduled 2023-04-01 Pneumococcal Vaccine: [facility] Test 15:38:20 Pediatrics (0 to 5 Years) and At-Risk Patients (6 to 64 Years) (2 - PCV) [code = Pneumococcal Vaccine: Pediatrics (0 to 5 Years) and At-Risk Patients (6 to 64 Years) (2 - PCV)] Future Scheduled 2023-04-01 HEPATITIS B VACCINES [facility] Test 15:38:20 (1 of 3 - Risk 3-dose series) [code = HEPATITIS B VACCINES (1 of 3 - Risk 3-dose series)] Future Scheduled 2023-04-01 RSV VACCINES > 60 YR [facility] Test 15:38:20 (1 - 1-dose 60+ series) [code = RSV VACCINES > 60 YR (1 - 1-dose 60+ series)] Future Scheduled 2023-04-01 INFLUENZA VACCINE (#1) [facility] Test 15:38:20 [code = INFLUENZA VACCINE (#1)] Future Scheduled 2023-03-28 Screening for [facility] Test 05:41:02 malignant neoplasm of colon (procedure) [code = 611664053] Future Scheduled 2023-03-28 [facility] Test 05:41:02 malignant neoplasm of colon (procedure) [code = 864492399] Future Scheduled 2023-03-28 [facility] Test 05:41:02 malignant neoplasm of colon (procedure) [code = 345706416] Future Scheduled 2023-03-28 COVID-19 VACCINE (#1) [facility] Test 05:41:02 [code = COVID-19 VACCINE (#1)] Future Scheduled 2023-03-28 SHINGLES VACCINES (1 [facility] Test 05:41:02 of 2) [code = SHINGLES VACCINES (1 of 2)] Future Scheduled 2023-03-28 Screening for [facility] Test 05:41:02 malignant neoplasm of colon (procedure) [code = 912055965] Future Scheduled 2023-03-28 Screening for [facility] Test 05:41:02 malignant neoplasm of colon (procedure) [code = 376490478] Future Scheduled 2023-03-28 Pneumococcal Vaccine: [facility] Test 05:41:02 Pediatrics (0 to 5 Years) and At-Risk Patients (6 to 64 Years) (2 - PCV) [code = Pneumococcal Vaccine: Pediatrics (0 to 5 Years) and At-Risk Patients (6 to 64 Years) (2 - PCV)] Future Scheduled 2023-03-28 HEPATITIS B VACCINES [facility] Test 05:41:02 (1 of 3 - Risk 3-dose series) [code = HEPATITIS B VACCINES (1 of 3 - Risk 3-dose series)] Future Scheduled 2023-03-28 INFLUENZA VACCINE (#1) [facility] Test 05:41:02 [code = INFLUENZA VACCINE (#1)] Future Scheduled 2022-03-25 HEPATITIS B VACCINES [facility] Test 18:55:02 (1 of 3 - 3-dose series) [code = HEPATITIS B VACCINES (1 of 3 - 3-dose series)] Future Scheduled 2022-03-25 COVID-19 VACCINE (#1) [facility] Test 18:55:02 [code = COVID-19 VACCINE (#1)] Future Scheduled 2022-03-25 SHINGLES VACCINES (1 [facility] Test 18:55:02 of 2) [code = SHINGLES VACCINES (1 of 2)] Future Scheduled 2022-03-25 COLONOSCOPY SCREENING [facility] Test 18:55:02 [code = COLONOSCOPY SCREENING] Future Scheduled 2022-03-25 Pneumococcal Vaccine: [facility] Test 18:55:02 Pediatrics (0 to 5 Years) and At-Risk Patients (6 to 64 Years) (2 - PCV) [code = Pneumococcal Vaccine: Pediatrics (0 to 5 Years) and At-Risk Patients (6 to 64 Years) (2 - PCV)] Future Scheduled 2022-03-25 INFLUENZA VACCINE Method [facility] Test 18:55:02 [code = INFLUENZA VACCINE] Future Scheduled 2022-03-20 HEPATITIS B VACCINES [facility] Test 03:06:19 (1 of 3 - 3-dose series) [code = HEPATITIS B VACCINES (1 of 3 - 3-dose series)] Future Scheduled 2022-03-20 COVID-19 VACCINE (#1) [facility] Test 03:06:19 [code = COVID-19 VACCINE (#1)] Future Scheduled 2022-03-20 SHINGLES VACCINES (1 [facility] Test 03:06:19 of 2) [code = SHINGLES VACCINES (1 of 2)] Future Scheduled 2022-03-20 COLONOSCOPY SCREENING [facility] Test 03:06:19 [code = COLONOSCOPY SCREENING] Future Scheduled 2022-03-20 Pneumococcal Vaccine: [facility] Test 03:06:19 Pediatrics (0 to 5 Years) and At-Risk Patients (6 to 64 Years) (2 - PCV) [code = Pneumococcal Vaccine: Pediatrics (0 to 5 Years) and At-Risk Patients (6 to 64 Years) (2 - PCV)] Future Scheduled 2022-03-20 INFLUENZA VACCINE [facility] Test 03:06:19 [code = INFLUENZA VACCINE] Future Scheduled 2022-02-18 HEPATITIS B VACCINES [facility] Test 12:28:16 (1 of 3 - 3-dose series) [code = HEPATITIS B VACCINES (1 of 3 - 3-dose series)] Future Scheduled 2022-02-18 COVID-19 VACCINE (#1) [facility] Test 12:28:16 [code = COVID-19 VACCINE (#1)] Future Scheduled 2022-02-18 SHINGLES VACCINES (1 [facility] Test 12:28:16 of 2) [code = SHINGLES VACCINES (1 of 2)] Future Scheduled 2022-02-18 COLONOSCOPY SCREENING [facility] Test 12:28:16 [code = COLONOSCOPY SCREENING] Future Scheduled 2022-02-18 Pneumococcal Vaccine: [facility] Test 12:28:16 Pediatrics (0 to 5 Years) and At-Risk Patients (6 to 64 Years) (2 - PCV) [code = Pneumococcal Vaccine: Pediatrics (0 to 5 Years) and At-Risk Patients (6 to 64 Years) (2 - PCV)] Future Scheduled 2022-02-18 INFLUENZA VACCINE [facility] Test 12:28:16 [code = INFLUENZA VACCINE] Future Scheduled 2021-07-22 COVID-19 VACCINE (1) [facility] Test 06:14:35 [code = COVID-19 VACCINE (1)] Future Scheduled 2021-07-22 COLONOSCOPY SCREENING [facility] Test 06:14:35 [code = COLONOSCOPY SCREENING] Future Scheduled 2021-07-22 SHINGLES VACCINES (#1) [facility] Test 06:14:35 [code = SHINGLES VACCINES (#1)] Future Scheduled 2021-07-22 INFLUENZA VACCINE Method [facility] Test 06:14:35 [code = INFLUENZA VACCINE] Encounters Start End Encounter Admission Attending Care Care Encounter Source Date/Time Date/Time Type Type Clinicians Facility Department ID 2023-02-26 2023-02-26 Orders Ping, 1.2.840.1 [id number] Methodi 00:00:00 00:00:[address]eth [address]250[address]1.[address] 3.430.2.7 Hospit a .3.289571 l .8 2023-02-26 2023-02-26 Orders Ping, 1.2.840.1 [id number] Methodi 00:00:00 00:00:00 Only Loideth 90005.1.[address] 3.430.2.7 Hospit a .3.545740 l .8 2023-02-20 2023-02-20 Orders Rigo-Yusuf, 1.2.840.1 [id number] Methodi 00:00:00 00:00:00 Only Reynaldo 51065.1.[address] 3.430.2.7 Hospit a .3.953742 l .8 2023-02-20 2023-02-20 Orders Ankoma-Sey, 1.2.840.1 [id number] Methodi 00:00:00 00:00:00 Only Reynaldo 17013.1.[address] 3.430.2.7 Hospit a .3.515051 l .8 2023-02-15 2023-02-15 Orders Ping, 1.2.840.1 [id number] Methodi 00:00:00 00:00:00 Only Claireth 19064.1.[address] 3.430.2.7 Hospit a .3.172078 l .8 2023-02-15 2023-02-15 Orders Ping, 1.2.840.1 [id number] Methodi 00:00:00 00:00:00 Only Carolideth 87435.1.[address] 3.430.2.7 Hospit a .3.433105 l .8 2023-01-26 2023-01-26 Orders Clayton, 1.2.840.1 [id number] Methodi 00:00:00 00:00:00 Only Lauryn 36193.1.1 261 s t 3.430.2.7 Hospit a .3.967596 l .8 2023-01-26 2023-01-26 Orders Clayton, 1.2.840.1 [id number] Methodi 00:00:00 00:00:00 Only Lauryn 49211.1.1 127 s t 3.430.2.7 Hospit a .3.999916 l .8 2023-01-26 2023-01-26 Orders Clayton, 1.2.840.1 [id number] Methodi 00:00:00 00:00:00 Only Lauryn 37165.1.1 261 s t 3.430.2.7 Hospit a .3.443593 l .8 2023-01-26 2023-01-26 Orders Clayton, 1.2.840.1 [id number] Methodi 00:00:00 00:00:00 Only Lauryn 68033.1.1 127 s t 3.430.2.7 Hospit a .3.838872 l .8 2023-01-18 2023-01-18 Documentat Abdjosefa, 1.2.840.1 [id number] Methodi 00:00:00 00:00:00 ron Lozano [address]244.1.[address] 3.430.2.7 Hospit a .3.134532 l .8 2023-01-18 2023-01-18 Documentat Abdjosefa, 1.2.840.1 [id number] Methodi 00:00:00 00:00:00 [address].1.[address] 3.430.2.7 Hospit a .3.461579 l .8 2023-01-15 2023-01-15 Oncology Melissa KylieLamin 1.2.840.1 [id number] Methodi 00:00:00 00:00:00 Survivorsh 45234.1.1 132 s t ip 3.430.2.7 Hospit a .3.887457 l .8 2023-01-15 2023-01-15 Social Darwin, 1.2.840.1 [id number] Methodi 00:00:00 00:00:00 Work Ashely 17791.1.[address] 3.430.2.7 Hospit a .3.732194 l .8 2023-01-15 2023-01-15 Oncology Ma KylieLamin 1.2.840.1 [id number] Methodi 00:00:00 00:00:00 Survivorsh 37073.1.1 132 s t ip 3.430.2.7 Hospit a .3.005660 l .8 2023-01-15 2023-01-15 Social Darwin, 1.2.840.1 [id number] Methodi 00:00:00 00:00:00 Work Ashely 07470.1.[address] 3.430.2.7 Hospit a .3.772741 l .8 2023-01-14 2023-01-14 Oncology Laisha Torres 1.2.840.1 [id number] Methodi 00:00:00 00:00:00 Survivorsh 77176.1.1 600 s t ip 3.430.2.7 Hospit a .3.403790 l .8 2023-01-14 2023-01-14 Orders Nurse, 1.2.840.1 [id number] Methodi 00:00:00 00:00:00 Only Mari 48241.1.[address] 3.430.2.7 Hospit a .3.888737 l .8 2023-01-14 2023-01-14 Telephone Tonja, 1.2.840.1 [id number] Methodi 00:00:00 00:00:[address] 3.430.2.7 Hospit a .3.063601 l .8 2023-01-14 2023-01-14 Oncology Laisha Torres 1.2.840.1 [id number] Methodi 00:00:00 00:00:00 Survivorsh 49395.1.1 600 s t ip 3.430.2.7 Hospit a .3.605766 l .8 2023-01-14 2023-01-14 Orders Nurse, 1.2.840.1 [id number] Methodi 00:00:00 00:00:00 Only Mari 22771.1.[address] 3.430.2.7 Hospit a .3.011352 l .8 2023-01-14 2023-01-14 Telephone Tonja, 1.2.840.1 [id number] Methodi 00:00:00 00:00:[address] 3.430.2.7 Hospit a .3.304901 l .8 2022-10-26 2022-10-26 Orders Ankoma-Sey, 1.2.840.1 [id number] Methodi 00:00:00 00:00:00 Only Reynaldo 03443.1.[address] 3.430.2.7 Hospit a .3.270146 l .8 2022-10-26 2022-10-26 Orders Ankoma-Sey, 1.2.840.1 [id number] Methodi 00:00:00 00:00:00 Only Reynaldo 68887.1.[address] 3.430.2.7 Hospit a .3.411960 l .8 2022-09-18 2022-09-18 Orders Clayton, 1.2.840.1 [id number] 1708 Methodi 00:00:00 00:00:00 Only Lauryn 06274.1.1 572 s t 3.430.2.7 Hospit a .3.827452 l .8 2022-09-18 2022-09-18 Orders Clayton, 1.2.840.1 [id number] 2352 Methodi 00:00:00 00:00:00 Only Lauryn 87199.1.1 572 s t 3.430.2.7 Hospit a .3.488117 l .8 2022-08-28 2022-08-28 Telephone Garland, 1.2.840.1 [id number] 21 [id number] Methodi 00:00:00 00:00:[address] 3.430.2.7 Hospit a .3.475144 l .8 2022-08-28 2022-08-28 Telephone Garland, 1.2.840.1 [id number] Methodi 00:00:00 00:00:[address] 3.430.2.7 Hospit a .3.525442 l .8 2022-08-19 2022-08-19 Orders Clayton, 1.2.840.1 [id number] 027339 0120 Methodi 00:00:00 00:00:00 Only Lauryn 85699.1.1 539 s t 3.430.2.7 Hospit a .3.922637 l .8 2022-08-19 2022-08-19 Orders Clayton, 1.2.840.1 [id number] 501487 8180 Methodi 00:00:00 00:00:00 Only Lauryn 39263.1.1 539 s t 3.430.2.7 Hospit a .3.280398 l .8 2022-08-18 2022-08-18 [facility], 1.2.840.1 [id number] 21 [id number] Methodi 14:00:00 15:00:[address] Ton[address] 14172.1.[address] 3.430.2.7 Hospit a .3.762064 l .8 2022-08-18 2022-08-18 Office [facility], 1.2.840.1 [id number] Methodi 14:00:00 15:00:00 [address] Tonie 76527.1.[address] 3.430.2.7 Hospit a .3.504053 l .8 2022-08-18 2022-08-18 Oncology Laisha Torres 1.2.840.1 [id number] 21 [id number] Methodi 00:00:00 00:00:00 Survivorsh 86715.1.1 422 s t ip 3.430.2.7 Hospit a .3.084190 l .8 2022-08-18 2022-08-18 Travel 1.2.840.1 1.2.948.732 0674 115069 Methodi 00:00:00 00:00:[address] 3.430.2.7 0.2.7.3.698 Ho spita .3.793495 084.8 l .8 2022-08-18 2022-08-18 Oncology Melissa KylieLamin 1.2.840.1 [id number] 36348210 Methodi 00:00:00 00:00:00 Survivorsh 57758.1.1 422 s t ip 3.430.2.7 Hospit a .3.117957 l .8 2022-08-18 2022-08-18 Travel 1.2.840.1 1.2.597.048 3113 766796 Methodi 00:00:00 00:00:[address] 3.430.2.7 0.2.7.3.698 spita .3.771436 084.8 l .8 2022-08-05 2022-08-05 Telephone [facility], 1.2.840.1 [id number] Methodi 00:00:00 00:00:[address] 3.430.2.7 Hospit a .3.548304 l .8 2022-08-05 2022-08-05 Telephone [facility], 1.2.840.1 [id number] Methodi 00:00:00 00:00:[address] 3.430.2.7 Hospit a .3.555312 l .8 2022-07-31 2022-07-31 Refill Ping, 1.2.840.1 299524262 949654 3095 Methodi 00:00:00 00:00:[address] 3.430.2.7 Hospit a .3.370371 l .8 2022-07-31 2022-07-31 Refill Ping, 1.2.840.1 487454729 844257 5191 Methodi 00:00:00 00:00:[address] 3.430.2.7 Hospit a .3.539643 l .8 2022-07-31 2022-07-31 Refill Ping, 1.2.840.1 582934640 368078 4956 Methodi 00:00:00 00:00:[address] 3.430.2.7 Hospit a .3.820811 l .8 2022-07-31 2022-07-31 Refill Ping, 1.2.840.1 573503928 753049 4781 Methodi 00:00:00 00:00:[address] 3.430.2.7 Hospit a .3.956883 l .8 2022-07-29 2022-07-29 Refill Ping, 1.2.840.1 263783005 304496 5351 Methodi 00:00:00 00:00:[address] 3.430.2.7 Hospit a .3.560534 l .8 2022-07-29 2022-07-29 Refill Ping, 1.2.840.1 082258219 622586 1718 Methodi 00:00:00 00:00:[address] 3.430.2.7 Hospit a .3.502851 l .8 2022-07-17 2022-07-17 Telephone Tonja, 1.2.840.1 [id number] Methodi 00:00:00 00:00:[address] 3.430.2.7 Hospit a .3.744583 l .8 2022-07-17 2022-07-17 Telephone Tonja, 1.2.840.1 [id number] Methodi 00:00:00 00:00:[address] 3.430.2.7 Hospit a .3.819460 l .8 2022-07-09 2022-07-09 [facility], 1.2.840.1 [id number] 21 [id number] Methodi 15:00:00 15:15:00 Visit Reynaldo 29590.1.[address] 3.430.2.7 Hospit a .3.639327 l .8 2022-07-09 2022-07-09 Office RigoYusuf, 1.2.840.1 [id number] 21 [id number] Methodi 15:00:00 15:15:00 Visit Reynaldo 23900.1.[address] 3.430.2.7 Hospit a .3.192316 l .8 2022-07-09 2022-07-09 Office Diego, 1.2.840.1 [id number] 01462277 Methodi 10:45:00 11:59:34 Visit Aime Case 08706.1.[address] 3.430.2.7 Hospit a .3.427962 l .8 2022-07-09 2022-07-09 Office Diego, 1.2.840.1 074140106 40254635 Methodi 10:45:00 11:59:34 Visit Aime Case 16279.1.[address] 3.430.2.7 Hospit a .3.468679 l .8 2022-07-09 2022-07-09 Travel 1.2.840.1 1.2.099.142 9888 568399 Methodi 00:00:00 00:00:[address] 3.430.2.7 0.2.7.3.698 Ho spita .3.714898 084.8 l .8 2022-07-09 2022-07-09 [facility] 872 [id number] [place] 00:00:00 00:00:00 AIME BillReba Method i st 2022-07-09 2022-07-09 Travel 1.2.840.1 1.2.117.312 8667 745997 Methodi 00:00:00 00:00:[address] 3.430.2.7 0.2.7.3.698 Ho spita .3.338835 084.8 l .8 2022-07-06 2022-07-06 Travel 1.2.840.1 1.2.201.383 8365 136040 Methodi 00:00:00 00:00:[address] 3.430.2.7 0.2.7.3.698 Ho spita .3.072222 084.8 l .8 2022-07-06 2022-07-06 Travel 1.2.840.1 1.2.763.214 9165 015447 Methodi 00:00:00 00:00:[address] 3.430.2.7 0.2.7.3.698 Ho spita .3.406184 084.8 l .8 2022-07-03 2022-07-03 [facility], 1.2.840.1 [id number] 2 [id number] Methodi 09:00:23 23:59:00 Encounter Reynaldo 49196.1.[address] 3.430.2.7 Hospit a .3.604023 l .8 2022-07-03 2022-07-03 [facility], 1.2.840.1 [id number] 2 048451836 Methodi 09:00:23 23:59:00 Encounter Reynaldo 54807.1.[address] 3.430.2.7 Hospit a .3.444603 l .8 2022-07-03 2022-07-03 [facility], 1.2.840.1 505264207 2 [id number] Methodi 07:43:41 08:59:00 Encounter Reynaldo 87118.1.[address] 3.430.2.7 Hospit a .3.727504 l .8 2022-07-03 2022-07-03 [facility], 1.2.840.1 212125291 2 306991334 Methodi 07:43:41 08:59:00 Encounter Reynaldo 71528.1.[address] 3.430.2.7 Hospit a .3.492744 l .8 2022-07-03 2022-07-03 [facility], 1.2.840.1 742235352 2 [id number] Methodi 07:43:13 08:59:00 Encounter Reynaldo 33453.1.[address] 3.430.2.7 Hospit a .3.838639 l .8 2022-07-03 2022-07-03 [facility], 1.2.840.1 794301819 2 742056323 Methodi 07:43:13 08:59:00 Encounter Reynaldo 81576.1.[address] 3.430.2.7 Hospit a .3.524889 l .8 2022-07-03 2022-07-03 Travel 1.2.840.1 1.2.580.323 2962 796983 Methodi 00:00:00 00:00:[address] 3.430.2.7 0.2.7.3.698 Ho spita .3.874219 084.8 l .8 2022-07-03 2022-07-03 Outpatient [facility] [id number] [place] 00:00:00 00:00:00 LUIS MIGUEL Lewis7 Method i st 2022-07-03 2022-07-03 Travel 1.2.840.1 1.2.426.585 4307 553986 Methodi 00:00:00 00:00:[address] 3.430.2.7 0.2.7.3.698 Ho spita .3.076048 084.8 l .8 2022-06-29 2022-06-29 Documentat Arnol, 1.2.840.1 557351426 483 6539472 Methodi 00:00:00 00:00:00 ion Stephanie 28637.1.[address] 3.430.2.7 Hospit a .3.703683 l .8 2022-06-29 2022-06-29 Documentat Arnol, 1.2.840.1 654345878 264 8731607 Methodi 00:00:00 00:00:00 ion Stephanie 21196.1.[address] 3.430.2.7 Hospit a .3.032541 l .8 2022-05-29 2022-05-29 Orders Ping, 1.2.840.1 305749775 101143 2930 Methodi 00:00:00 00:00:00 Only Carolidemargret 58150.1.[address] 3.430.2.7 Hospit a .3.436043 l .8 2022-05-29 2022-05-29 Orders Ping, 1.2.840.1 040530647 234093 1354 Methodi 00:00:00 00:00:00 Only Loideth 87570.1.[address] 3.430.2.7 Hospit a .3.534476 l .8 2022-05-11 2022-05-11 Refill Ping, 1.2.840.1 597284449 311808 1191 Methodi 00:00:00 00:00:[address] 3.430.2.7 Hospit a .3.949407 l .8 2022-05-11 2022-05-11 Refill Ping, 1.2.840.1 709857338 948715 5560 Methodi 00:00:00 00:00:[address] 3.430.2.7 Hospit a .3.326139 l .8 2022-04-22 2022-04-22 Orders Taylor, 1.2.840.5 9607754805 685 5766612 Methodi 00:00:00 00:00:00 Only Rafik Chris 77279.1.1 807 s t 3.430.2.7 Hospit a .3.848257 l .8 2022-04-22 2022-04-22 Orders Taylor, 1.2.840.9 2001867618 875 6020276 Methodi 00:00:00 00:00:00 Only Rafik Chris 11194.1.1 807 s t 3.430.2.7 Hospit a .3.885346 l .8 2022-01-21 2022-01-21 Refill Taylor, 1.2.840.1 515964095 2100 704283 Methodi 00:00:00 00:00:00 Rafik Chris 76088.1.1 740 s t 3.430.2.7 Hospit a .3.605223 l .8 2021-11-27 2021-11-27 Social Jose L, 1.2.840.1 017701756 125117 0606 Methodi 15:00:00 15:15:00 Work Natalia 62500.1.[address] 3.430.2.7 Hospit a .3.105972 l .8 2021-11-27 2021-11-27 [facility], 1.2.840.1 [id number] 21 [id number] Methodi 14:00:00 14:15:00 Visit Reynaldo 40954.1.[address] 3.430.2.7 Hospit a .3.255294 l .8 2021-11-27 2021-11-27 Travel 1.2.840.1 1.2.735.527 5542 638562 Methodi 00:00:00 00:00:[address] 3.430.2.7 0.2.7.3.698 Ho spita .3.030000 084.8 l .8 2021-11-25 2021-11-25 Psychiatric Taylor, 1.2.840.0 6851450745 902 3980169 Methodi 00:00:00 00:00:00 Only Luis Miguel Chris 84303.1.1 253 s t 3.430.2.7 Hospit a .3.739727 l .8 2021-10-16 2021-10-16 Cha Phillips, 1.2.840.1 030907126 71294 80919 Methodi 00:00:00 00:00:00 Jamarcus Case 20359.1.[address] 3.430.2.7 Hospit a .3.008008 l .8 2021-08-21 2021-08-21 [facility], 1.2.840.1 [id number] 2 730807314 Methodi 10:44:00 23:59:00 Encounter Reynaldo 10582.1.[address] 3.430.2.7 Hospit a .3.785735 l .8 2021-08-21 2021-08-21 [facility], 1.2.840.1 [id number] 21 15745479 Methodi 14:30:00 14:45:00 Visit Reynaldo 35177.1.[address] 3.430.2.7 Hospit a .3.205021 l .8 2021-08-21 2021-08-21 [facility], 1.2.840.1 036807855 2 [id number] Methodi 09:28:24 10:43:00 Encounter Reynaldo 98020.1.[address] 3.430.2.7 Hospit a .3.562292 l .8 2021-08-21 2021-08-21 [facility], [facility] [id number] [place] 00:00:00 00:00:[address] 2021-08-21 2021-08-21 Travel 1.2.840.1 1.2.920.868 8365 736422 Methodi 00:00:00 00:00:[address] 3.430.2.7 0.2.7.3.698 Ho spita .3.531909 084.8 l .8 2021-07-28 2021-07-28 Refill Ping, 1.2.840.1 919177468 625906 7342 Methodi 00:00:00 00:00:[address] 3.430.2.7 Hospit a .3.085015 l .8 2021-07-22 2021-07-22 Orders Ping, 1.2.840.1 903247371 689181 3942 Methodi 00:00:00 00:00:00 Only Loideth 69876.1.[address] 3.430.2.7 Hospit a .3.858458 l .8 2021-06-23 2021-06-23 Orders Ping, 1.2.840.1 684432394 226108 2607 Methodi 00:00:00 00:00:00 Only Loideth 92931.1.[address] 3.430.2.7 Hospit a .3.351168 l .8 2021-06-12 2021-06-12 Refsampson Phillips, 1.2.840.1 535841431 74493 83695 Methodi 00:00:00 00:00:00 Jamarcus Case 70525.1.[address] 3.430.2.7 Hospit a .3.943935 l .8 2021-06-10 2021-06-10 Refsampson Phillips, 1.2.840.1 738994176 82849 58943 Methodi 00:00:00 00:00:00 Jamarcus Case [address]497.1.[address] 3.430.2.7 Hospit a .3.949603 l .8 2021-06-07 2021-06-07 Nurse Therapy, [facility] 1.2.840.114 [id number] Univers 08:30:00 09:30:00 Visit Av Miguel [facility] 350.1.13.10 ity of [place] 4.2.7.2.686 [facility] [phone] [place] [id number] Branch OFFICE BUILDING 2021-06-07 2021-06-07 Outpatient R PRASANTH [facility] [id number] Univers 08:30:00 08:30:[address] [facility] [place] [place] 2021-06-07 2021-06-07 Orders Doctor CALL 1.2.840.114 [id number] Univers 00:00:00 00:00:00 Only Unassigned, [place] 350.1.13.[address] [facility] 4.2.7.2.686 Aakash [phone] [place] [address] Branch 2021-05-26 2021-05-26 Orders Ping, 1.2.840.1 410285812 857706 1254 Methodi 00:00:00 00:00:00 Only Roland 26491.1.[address] 3.430.2.7 Hospit a .3.456952 l .8 2021-05-12 2021-05-12 Refsampson Phillips, 1.2.840.1 [id number] 11217 03532 Methodi 00:00:00 00:00:00 Jamarcus Case 17844.1.[address] 3.430.2.7 Hospit a .3.210340 l .8 2021-04-24 2021-04-24 Telephone Manny, 1.2.840.1 922469384 2100 366725 Methodi 00:00:00 00:00:[address] 3.430.2.7 Hospit a .3.150113 l .8 2021-04-03 2021-04-03 Social [place], 1.2.840.1 290460478 927390 3013 Methodi 15:45:00 16:00:00 Work Kerline 99405.1.[address] 3.430.2.7 Hospit a .3.922929 l .8 2021-04-03 2021-04-03 Office RigoYusuf, 1.2.840.1 [id number] 21 78162035 Methodi 14:45:00 15:00:00 Visit Reynaldo 25943.1.[address] 3.430.2.7 Hospit a .3.862062 l .8 2021-04-03 2021-04-03 Travel 1.2.840.1 1.2.881.386 7203 665059 Methodi 00:00:00 00:00:[address] 3.430.2.7 0.2.7.3.698 Ho spita .3.238425 084.8 l .8 2021-04-01 2021-04-01 Orders Taylor, 1.2.840.5 7674948872 801 7279321 Methodi 00:00:00 00:00:00 Only Luis Miguel Perez 68034.1.1 609 s t 3.430.2.7 Hospit a .3.580327 l .8 2021-03-18 2021-03-18 Refill Ping, 1.2.840.1 222190416 724159 9698 Methodi 00:00:00 00:00:[address] 3.430.2.7 Hospit a .3.337885 l .8 2021-03-18 2021-03-18 Refill Ping, 1.2.840.1 480969337 510574 9667 Methodi 00:00:00 00:00:[address] 3.430.2.7 Hospit a .3.658699 l .8 2021-02-20 2021-02-20 Telephone Manjit, 1.2.840.1 [id number] 21 53357313 Methodi 00:00:00 00:00:[address] 3.430.2.7 Hospit a .3.460124 l .8 2021-02-18 2021-02-18 Refill Ping, 1.2.840.1 458888717 190310 0882 Methodi 00:00:00 00:00:[address] 3.430.2.7 Hospit a .3.178404 l .8 2021-02-05 2021-02-05 Telephone Devora, 1.2.840.1 [id number] 21 34624291 Methodi 00:00:00 00:00:[address] 3.430.2.7 Hospit a .3.239861 l .8 2021-02-03 2021-02-03 Orders Taylor, 1.2.840.4 2206222049 092 4747252 Methodi 00:00:00 00:00:00 Only Luis Miguel Perez 83985.1.1 724 s t 3.430.2.7 Hospit a .3.620158 l .8 2020-12-28 2020-12-28 [facility], 1.2.840.1 [id number] Methodi 07:01:04 07:16:04 Telemedici Reynaldo 24797.1.1 354 s t ne 3.430.2.7 Hospit a .3.401928 l .8 2020-12-26 2020-12-26 Telephone Maritza, 1.2.840.1 [id number] 636 9781977 Methodi 00:00:00 00:00:[address] 3.430.2.7 Hospit a .3.553959 l .8 2020-12-25 2020-12-25 Orders Taylor, 1.2.840.3 8557408241 347 6546689 Methodi 00:00:00 00:00:00 Only Rafik Chris 31955.1.1 053 s t 3.430.2.7 Hospit a .3.640029 l .8 2020-12-03 2020-12-03 Telemedici Jacqueline, 1.2.840.1 [id number] 21 65047172 Methodi 11:39:49 11:59:49 ne Jamarcus Case 63696.1.[address] 3.430.2.7 Hospit a .3.818282 l .8 2020-11-28 2020-11-28 Refill Taylor, 1.2.840.1 523039929 2099 683857 Methodi 00:00:00 00:00:00 Luis Miguel Perez 82346.1.1 530 s t 3.430.2.7 Hospit a .3.350579 l .8 2020-11-27 2020-11-27 Refill Taylor, 1.2.840.1 778946693 2099 484134 Methodi 00:00:00 00:00:00 Luis Miguel Perez 96159.1.1 121 s t 3.430.2.7 Hospit a .3.396327 l .8 2020-11-27 2020-11-27 Refill Buchert, 1.2.840.1 696995468 53821 67851 Methodi 00:00:00 00:00:00 Jamarcus Case [address]309.1.[address] 3.430.2.7 Hospit a .3.025776 l .8 2020-11-01 2020-11-01 Telephone Raheel, 1.2.840.1 [id number] 2099 084067 Methodi 00:00:00 00:00:[address].1.[address] 3.430.2.7 Hospit a .3.912695 l .8 2020-10-31 2020-10-31 Orders Taylor, 1.2.840.1 630823974 2099 493952 Methodi 00:00:00 00:00:00 Only Luis Miguel Perez 09766.1.1 249 s t 3.430.2.7 Hospit a .3.735108 l .8 2020-10-092020-10-09 Documentat Pepper, 1.2.840.1 234079905 28937888 Methodi 00:00:00 00:00:00 ion Jocelyn 85500.1.[address] 3.430.2.7 Hospit a .3.039761 l .8 2020-10-04 2020-10-04 Telephone Ping, 1.2.840.1 905433961 2100 028635 Methodi 00:00:00 00:00:[address] 3.430.2.7 Hospit a .3.908583 l .8 2020-10-02 2020-10-02 Procedure Lavonne, 1.2.840.1 330544622 891 0723303 Methodi 11:38:54 15:23:37 visit Shant 81916.1.[address] Sage 3.430.2.7 Hospit a .3.069703 l .8 2020-10-02 2020-10-02 Travel 1.2.840.1 1.2.978.001 8525 253997 Methodi 00:00:00 00:00:[address] 3.430.2.7 0.2.7.3.698 Ho spita .3.862440 084.8 l .8 2020-09-30 2020-09-30 Orders Taylor, 1.2.840.1 947036418 2100 028286 Methodi 00:00:00 00:00:00 Only Luis Miguel Perez 92863.1.1 483 s t 3.430.2.7 Hospit a .3.223478 l .8 2020-09-24 2020-09-24 Travel 1.2.840.1 1.2.231.646 2085 884020 Methodi 00:00:00 00:00:[address] 3.430.2.7 0.2.7.3.698 Ho spita .3.332741 084.8 l .8 2020-09-16 2020-09-16 Office Lavonne, 1.2.840.1 965430228 61823 18862 Methodi 09:38:18 11:07:39 Visit Shant 01448.1.[address] Sage 3.430.2.7 Hospit a .3.590618 l .8 2020-09-16 2020-09-16 Travel 1.2.840.1 1.2.319.067 2482 728168 Methodi 00:00:00 00:00:[address] 3.430.2.7 0.2.7.3.698 Ho spita .3.109400 084.8 l .8 2020-09-11 2020-09-11 Orders Muse, 1.2.840.1 147533172 49107 21738 Methodi 00:00:00 00:00:00 Only Cleo 10103.1.[address] 3.430.2.7 Hospit a .3.609421 l .8 2020-09-11 2020-09-11 Orders Jacqueline, 1.2.840.1 157293898 22800 46536 Methodi 00:00:00 00:00:00 Only Jamarcus Case 55574.1.[address] 3.430.2.7 Hospit a .3.778747 l .8 2020-09-10 2020-09-10 Office Jacqueline, 1.2.840.1 087264278 45698 56531 Methodi 09:55:35 10:20:46 Visit Jamarcus Case 05280.1.[address] 3.430.2.7 Hospit a .3.753827 l .8 2020-09-10 2020-09-10 Orders Jacqueline, 1.2.840.1 552265488 91318 55174 Methodi 00:00:00 00:00:00 Only Jamarcus Case 45665.1.[address] 3.430.2.7 Hospit a .3.380774 l .8 2020-09-10 2020-09-10 Travel 1.2.840.1 1.2.401.311 1570 621430 Methodi 00:00:00 00:00:[address] 3.430.2.7 0.2.7.3.698 Ho spita .3.873694 084.8 l .8 2020-09-06 2020-09-06 [facility] Cedric, 1.2.840.1 [id number] 76356033 Methodi 10:23:29 23:59:00 Encounter Rene 28986.1.[address] Kermit 3.430.2.7 Hospit a .3.640966 l .8 2020-09-06 2020-09-06 [facility] Richy Almaguer Treviño 1.2.840 .1 [id number] Methodi 10:23:18 23:59:00 Encounter Rene Steele 53357.1.[address] 3.430.2.7 Hospit a .3.605122 l .8 2020-09-05 2020-09-05 Travel 1.2.840.1 1.2.402.628 9649 649343 Methodi 00:00:00 00:00:[address] 3.430.2.7 0.2.7.3.698 Ho spita .3.467374 084.8 l .8 2020-09-03 2020-09-03 Travel 1.2.840.1 1.2.498.169 6319 009442 Methodi 00:00:00 00:00:[address] 3.430.2.7 0.2.7.3.698 Ho spita .3.289993 084.8 l .8 2020-09-02 2020-09-02 [facility], 1.2.840.1 [id number] Methodi 00:00:00 00:00:[address] 3.430.2.7 Hospit a .3.434732 l .8 2020-08-30 2020-08-30 Travel 1.2.840.1 1.2.689.398 2130 537803 Methodi 00:00:00 00:00:[address] 3.430.2.7 0.2.7.3.698 Ho spita .3.645789 084.8 l .8 2020-08-28 2020-08-28 Orders Muse, 1.2.840.1 [id number] 21000 40086 Methodi 00:00:00 00:00:00 Only Cleo 65104.1.[address] 3.430.2.7 Hospit a .3.405732 l .8 2020-08-28 2020-08-28 Orders Muse, 1.2.840.1 [id number] 21000 46931 Methodi 00:00:00 00:00:00 Only Cleo 46237.1.[address] 3.430.2.7 Hospit a .3.742817 l .8 2020-08-22 2020-08-22 Office Luis Miguel Vazquez 1.2.840.1 104 356055 7985722639 Methodi 12:30:13 12:45:13 Visit Reynaldo Bah 46443.1.[address] 3.430.2.7 Hospit a .3.259612 l .8 2020-08-22 2020-08-22 Office Jacqueline 1.2.840.1 [id number] 53011 94781 Methodi 10:47:44 11:02:44 Visit Jamarcus Case 49642.1.[address] 3.430.2.7 Hospit a .3.880074 l .8 2020-08-22 2020-08-22 Travel 1.2.840.1 1.2.832.366 2732 134497 Methodi 00:00:00 00:00:[address] 3.430.2.7 0.2.7.3.698 Ho spita .3.931879 084.8 l .8 2020-08-13 2020-08-13 Refsampson Feng, 1.2.840.1 [id number] 107999 3362 Methodi 00:00:00 00:00:[address] 3.430.2.7 Hospit a .3.332158 l .8 2020-08-12 2020-08-12 Travel 1.2.840.1 1.2.832.206 8734 420323 Methodi 00:00:00 00:00:[address] 3.430.2.7 0.2.7.3.698 Ho spita .3.032265 084.8 l .8 2020-08-09 2020-08-09 Refill Jacqueline, 1.2.840.1 [id number] 65299 05962 Methodi 00:00:00 00:00:00 Jamarcus Case 64024.1.[address] 3.430.2.7 Hospit a .3.708165 l .8 2020-08-08 2020-08-08 Refill Taylor, 1.2.840.1 [id number] 2100 355267 Methodi 00:00:00 00:00:00 Luis Miguel Chris 98956.1.1 712 s t 3.430.2.7 Hospit a .3.854199 l .8 2020-08-03 2020-08-03 Nurse Therapy, [facility] 1.2.840.114 [id number] Univers 07:56:47 08:26:47 [facility]13.[facility] [place] [facility] [id number] [place] [id number] [place] 2020-08-03 2020-08-03 Outpatient R [facility] [id number] Univers 08:00:00 08:00:00 ity of [facility] 2020-08-01 2020-08-01 Orders Ping, 1.2.840.1 [id number] 795653 6165 Methodi 00:00:00 00:00:00 Only Loidemargret 16246.1.[address] 3.430.2.7 Hospit a .3.934731 l .8 2020-08-01 2020-08-01 Telephone Raheel, 1.2.840.1 [id number] 2100 305800 Methodi 00:00:00 00:00:00 [address]00.1.[address] 3.430.2.7 Hospit a .3.671248 l .8 2020-08-01 2020-08-01 Orders Doctor ONEYDA 1.2.840.114 [id number] Univers 00:00:00 00:00:00 Only Unassigned, SERENA 350.1.13.[address]y [address] [facility] 4.2.7.2.686 Aakash as 532.5844206 [place] [address] [place] 2020-07-29 2020-07-29 Telephone Can, 1.2.840.1 [id number] 21 [id number] Methodi 00:00:00 00:00:[address] 3.430.2.7 Hospit a .3.883546 l .8 2020-07-03 2020-07-03 Outpatient TAYLOR, [facility] [id number] [place] 00:00:00 00:00:00 LUIS MIGUEL [address] 2020-07-03 2020-07-03 Outpatient SAHARIA, [facility] [id number] [place] 00:00:00 00:00:00 JERMAIN [address] 2020-07-03 2020-07-03 Outpatient TAYLOR, [facility] [id number] [place] 00:00:00 00:00:00 LUIS MIGUEL [address] 2020-07-03 2020-07-03 Outpatient TAYLOR, [facility] [id number] [place] 00:00:00 00:00:00 LUIS MIGUEL 441 Method i 2020-04-26 2020-04-26 Outpatient ABDELRAHIM, [facility] [id number] [place] 00:00:00 00:00:00 TONIE 707 Method i 2020-04-17 2020-04-17 Outpatient ABDELRAHIM, [facility] [id number] [place] 00:00:00 00:00:[address] TONIE [address] 2020-04-09 2020-04-09 Outpatient ABDELRAHIM, [facility] [id number] [place] 00:00:00 00:00:00 TONIE [address] 2020-04-09 2020-04-09 Outpatient ABDELRAHIM, [facility] [id number] [place] 00:00:00 00:00:00 TONIE [address] 2020-04-09 2020-04-09 Outpatient ABDELRAHIM, [facility] [id number] [place] 00:00:00 00:00:00 TONIE [address] 2020-04-04 2020-04-04 Outpatient ANKOMA-SEY, [facility] [id number] [place] 00:00:00 00:00:00 REYNALDO [address] 2020-04-04 2020-04-04 Outpatient [facility] [id number] [place] 00:00:00 00:00:[address] 2020-03-07 2020-03-07 Outpatient MALONE, [facility] [id number] [place] 00:00:00 00:00:00 ALVARO [address] 2020-02-27 2020-02-27 Outpatient TAYLOR, [facility] [id number] [place] 00:00:00 00:00:00 LUIS MIGUEL [address] 2020-02-27 2020-02-27 Outpatient SIFF, DORI [facility] [id number] [place] 00:00:00 00:00:[address] 2020-02-27 2020-02-27 Outpatient [facility] [id number] [place] 00:00:00 00:00:[address] 2020-02-27 2020-02-27 Outpatient VALE, RICHY [facility] [id number] [place] 00:00:00 00:00:[address] 2020-02-27 2020-02-27 Outpatient SIFF, DORI [facility] [id number] [place] 00:00:00 00:00:[address] 2020-02-22 2020-02-22 Outpatient ANKOMA-SEY, [facility] [id number] [place] 00:00:00 00:00:00 REYNALDO [address] 2020-02-22 2020-02-22 Outpatient EGWIM, [facility] [id number] [place] 00:00:00 00:00:00 CHUYITA 980 Madhavo di 2020-02-22 2020-02-22 Outpatient KIRA, [facility] [id number] [place] 00:00:00 00:00:00 ALVARO 206 Method i 2020-02-22 2020-02-22 Outpatient SHADE, [facility] [id number] [place] 00:00:00 00:00:00 REYNALDO 207 Method i 2019-12-29 2019-12-29 Outpatient [facility] [id number] [place] 00:00:00 00:00:00 582 Method i 2019-09-27 2019-09-27 Outpatient [facility] [id number] [place] 00:00:00 00:00:00 509 Method i 2019-09-26 2019-09-26 Outpatient [facility] [id number] [place] 00:00:00 00:00:00 050 Method i 2019-09-26 2019-09-26 Outpatient [facility] [id number] [place] 00:00:00 00:00:00 021 Method i 2019-09-26 2019-09-26 Outpatient [facility] [id number] [place] 00:00:00 00:00:00 028 Method i 2019-09-26 2019-09-26 Outpatient VALE, RICHY [facility] [id number] [place] 00:00:00 00:00:00 236 Method i 2019-09-26 2019-09-26 Outpatient VALE, RICHY [facility] [id number] [place] 00:00:00 00:00:00 237 Method i 2019-08-15 2019-08-15 Outpatient TAYLOR, [facility] [id number] [place] 00:00:00 00:00:00 [address] 2019-08-15 2019-08-15 Outpatient TAYLOR, [facility] [id number] [place] 00:00:00 00:00:00 RAFIK [address] 2019-08-15 2019-08-15 Outpatient TAYLOR, [facility] [id number] [place] 00:00:00 00:00:00 RAFIK [address] 2019-08-15 2019-08-15 Outpatient TAYLOR, [facility] [id number] [place] 00:00:00 00:00:00 RAFIK [address] 2019-08-15 2019-08-15 Outpatient TAYLOR, [facility] [id number] [place] 00:00:00 00:00:00 RAFIK [address] 2019-08-15 2019-08-15 Outpatient TAYLOR, [facility] [id number] [place] 00:00:00 00:00:00 RAFIK [address] 2019-08-15 2019-08-15 Outpatient TAYLOR, [facility] [id number] [place] 00:00:00 00:00:00 RAFIK [address] Results Test Description Test Time Test Comments Results Result Comments Source Hepatic function panel 2023-02-23 16:23:00 Test Item Value Reference Range Interpretation Comme nts Protein (test code = 6.3 g/dL 6.1-8.1 2885-2) Albumin (test code = 3.6 g/dL 3.6-5.1 1-7) Globulin, total (test code 2.7 See_Comment [Automated message] = 12030-3) The system [facility] generated this result transmitted ref erence range: 1.9 - 3. 7 g/dL (calc). The ref erence range was not u sed to interpret this result as normal/abnor mal. Albumin/globulin ratio 1.3 See_Comment [Aut omated message] (test code = 1759-0) The [facility] tem which generated this result transmitted ref erence range: 1.0 - 2. 5 (calc). The ref erence range was not u sed to interpret this result as normal/abnor mal. Total bilirubin (test code 0.4 mg/dL 0.2-1.2 = 1974-07) Bilirubin direct (test 0.1 mg/dL See_Comment [Aut omated message] code = 1967-) The system [facility] generated this result transmitted ref erence range: < OR = 0 .2. The reference range was not used to int erpret this result as normal/abnormal . Bilirubin, indirect (test 0.3 See_Comment [ Automated message] code = 1970-) The system [facility] generated this result transmitted ref erence [...] = RAC) Performing Organization Information: Site ID: LAXMIA Name: [facility] Address: [address] [place] [address] Director: Robert Scott Lab Interpretation (test Abnormal code = 75750-6) [facility] [id number] 16:23:00 Test Item Value Reference Range Interpretation Comments Magnesium (test code 1.6 mg/dL 1.5-2.5 = 70742-7) JOSEFA (test code = JOSEFA) FASTING:YES FASTING: YES RAC (test code = RAC) Performing Organization Information: Site ID: LAXMIA Name: [facility] Address: [address] [place] [address] Director: Robert Scott [facility] with platelet and [id number] 16:23:00 Test Item Value Reference Range Interpretation Comments WBC (test code = 10.1 See_Comment [Automated 1730-2) message] The system which generated this result transmitted reference range : 3.8 - 10.8 Thousand/uL. Th e reference range was not used to interpret this result as normal/abnormal . RBC (test code = 4.45 See_Comment [Automated 246-8) message] The system which generated this result [...] normal/abnormal . Basophils, absolute 51 See_Comment [Automa rodrgio (test code = 704-7) message] The system [...] RAC) Organization Information: Site ID: A Name: [facility] Address: [address] [place] [address] Director: Robert Scott Lab Interpretation Abnormal (test code = 30503-1) [facility] [id number] 16:23:00 Test Item Value Reference Interpretation Comments Range Alpha 2.4 ng/mL <=6.1 This test was performed fetoprotein using the Beckm an (test code = Coulterchemilum inescent 92772-9) method. Values obtained fromdifferent a ssay methods cannot be usedinterchange ably. AFP levels, regardl ess ofvalue, should not be interpreted as absoluteevidenc e of the presence or abs ence of disease. JOSEFA (test code FASTING:YES = JOSEFA) FASTING: YES RAC (test code Performing = RAC) Organization Information: Site ID: IG Name: [facility] Address: [address] [place] [address] Director: Dr. Fran Guajardo [facility] Tacrolimus level, [id number] 16:23:00 Test Item Value Reference Range Interpretation Comments Tacrolimus, 6.5 mcg/L No definitive highly therapeutic or toxic sensitive, ranges have LC/MS/MS beenestablished . (test code = Optimal blood d rug 53508-6) levels are influencedby ty pe of transplant, pat ient response, time post-transplant , co-administrati on of other drugs, an d drug formulation. Th e following troug h range is a suggested guideline: 5.0- 20.0 mcg/L. This macrina t was developed and i ts analytical perf ormance characteristics have been determined by [employer]. It has not been cl eared or approved by theA. This assay has been validated pursu ant to the CLIA regula tions and is used for clinical purpos es. JOSEFA (test FASTING:YES code = JOSEFA) FASTING: YES RAC (test Performing code = RAC) Organization Information: Site ID: IG Name: [facility] Address: [address] [place] [address] Director: Dr. Fran Guajardo [facility] METABOLIC PANEL, [id number] 16:23:00 Test Item Value Reference Range Interpretation Comments Glucose (test 99 mg/dL 65-99 Fasting refer ence code = 2345-7) interval BUN (test code = 13 mg/dL 7-25 3094-0) Creatinine (test 1.27 mg/dL 0.70-1.35 code = 2160-0) eGFR (test code = 65 See_Comment [Automate d 36698-7) message] The system which generated this result [...] Calcium (test 9.2 mg/dL 8.6-10.3 code = 63670-4) JOSEFA (test code = FASTING:YES JOSEFA) FASTING: YES RAC (test code = Performing RAC) Organization Information: Site ID: RGA [facility]: [facility] Address: [address] [place] [address] Director: Robert Nicolas [facility] Hospital[facility] function [id number] 16:23:00 Test Item Value Reference Range Interpretation Comments Protein (test code = 6.3 g/dL 6.1-8.1 2885-2) Albumin (test code = 3.6 g/dL 3.6-5.1 1750-7) Globulin, total 2.7 See_Comment [Automated (test code = message] The 88188-6) system which generated this result transmitted reference range : 1.9 - 3.7 g/dL (calc). The reference range was not used to interpret this result as normal/abnormal . Albumin/globulin 1.3 See_Comment [Automated ratio (test code = message] The ) system which generated this result transmitted reference range : 1.0 - 2.5 (calc ). The reference range was not used to interpr et this result as normal/abnormal . Total bilirubin 0.4 mg/dL 0.2-1.2 (test code = 1974-) Bilirubin direct 0.1 mg/dL See_Comment [Automated (test code = 1967-12) message ] The system which generated this result transmitted reference range : < OR = 0.2. The reference range was not used to interpret this result as normal/abnormal . Bilirubin, indirect 0.3 See_Comment [Automa rodrigo (test code = 1970-06) message ] The system which generated this result transmitted reference range : 0.2 - 1.2 mg/dL (calc). The reference range was not used to interpret this result as normal/abnormal . Alkaline phosphatase 261 U/L 35-144 H (test code = 6768-6) AST (test code = 26 U/L 10-35 1920-8) ALT (test code = 17 U/L 9-46 1742-6) JOSEFA (test code = FASTING:YES JOSEFA) FASTING: YES RAC (test code = Performing RAC) Organization Information: Site ID: [facility] Name: [facility] Address: [address] [place] [address] Director: Robert Scott Lab Interpretation Abnormal (test code = 00875-6) [facility]2023-09-05 16:23:00 Test Item Value Reference Range Interpretation Comments Magnesium (test code 1.6 mg/dL 1.5-2.5 = 93389-8) JOSEFA (test code = JOSEFA) FASTING:YES FASTING: YES RAC (test code = RAC) Performing Organization Information: Site ID: [facility] Name: [facility] Address: [address] [place] [address] Director: Robert Scott [facility] with platelet and [id number] 16:23:00 Test Item Value Reference Range Interpretation Comments WBC (test code = 10.1 See_Comment [Automated 8696-2) message] The system which generated this result transmitted reference range : 3.8 - 10.8 Thousand/uL. Th e reference range was not used to interpret this result as normal/abnormal . RBC (test code = 4.45 See_Comment [Automated 789-8) message] The system which [...] RAC) Organization Information: Site ID: RGA Name: [facility] Address: [address] [place] [address] Director: Robert Scott Lab Interpretation Abnormal (test code = 63196-9) [facility] [id number] 16:23:00 Test Item Value Reference Interpretation Comments Range Alpha 2.4 ng/mL <=6.1 This test was performed fetoprotein using the Beck an (test code = Coulterchemilum inescent 14865-4) method. Values obtained fromdifferent a ssay methods cannot be usedinterchange ably. AFP levels, regardl ess ofvalue, should not be interpreted as absoluteevidenc e of the presence or abs ence of disease. JOSEFA (test code FASTING:YES = JSOEFA) FASTING: YES RAC (test code Performing = RAC) Organization Information: Site ID: IG Name: [facility] Address: [address] [place] [address] Director: Dr. Fran Guajardo [facility] Tacrolimus level, [id number] 16:23:00 Test Item Value Reference Range Interpretation Comments Tacrolimus, 6.5 mcg/L No definitive highly therapeutic or toxic sensitive, ranges have LC/MS/MS beenestablished . (test code = Optimal blood d rug 69395-6) levels are influencedby ty pe of transplant, pat ient response, time post-transplant , co-administrati on of other drugs, an d drug formulation. Th e following troug h range is a suggested guideline: 5.0- 20.0 mcg/L. This macrina t was developed and i ts analytical perf ormance characteristics have been determined by [employer]. It has not been cl eared or approved by [facility]. This assay has been validated pursu ant to the CLIA regula tions and is used for clinical purpos es. JOSEFA (test FASTING:YES code = JOSEFA) FASTING: YES RAC (test Performing code = RAC) Organization Information: Site ID: IG Name: [facility] Address: [address] [place] [address] Director: Dr. Fran Guajardo [facility] METABOLIC PANEL, [id number] 16:23:00 Test Item Value Reference Range Interpretation Comments Glucose (test 99 mg/dL 65-99 Fasting refer ence code = 2345-7) interval BUN (test code = 13 mg/dL 7-25 3094-0) Creatinine (test 1.27 mg/dL 0.70-1.35 code = 2160-0) eGFR (test code = 65 See_Comment [Automate d 19946-7) message] The system which generated this result [...] Calcium (test 9.2 mg/dL 8.6-10.3 code = 41236-4) JOSEFA (test code = FASTING:YES JOSEFA) FASTING: YES RAC (test code = Performing RAC) Organization Information: Site ID: RGA Name: [facility] Address: [address] [place] [address] Director: Robert Scott [facility] [id number] 16:23:00 Test Item Value Reference Range Interpretation Comments Protein (test code = 6.3 g/dL 6.1-8.1 2884-2) Albumin (test code = 3.6 g/dL 3.6-5.1 1750-12) Globulin, total 2.7 See_Comment [Automated (test code = message] The ) system which generated this result transmitted reference range : 1.9 - 3.7 g/dL (calc). The reference range was not used to interpret this result as normal/abnormal . Albumin/globulin 1.3 See_Comment [Automated ratio (test code = message] The ) system which generated this result transmitted reference range : 1.0 - 2.5 (calc ). The reference range was not used to interpr et this result as normal/abnormal . Total bilirubin 0.4 mg/dL 0.2-1.2 (test code = 1974-07) Bilirubin direct 0.1 mg/dL See_Comment [Automated (test code = 1967-12) message ] The system which generated this result transmitted reference range : < OR = 0.2. The reference range was not used to interpret this result as normal/abnormal . Bilirubin, indirect 0.3 See_Comment [Automa rodrigo (test code = 1970-06) message ] The system which generated this result transmitted reference range : 0.2 - 1.2 mg/dL (calc). The reference range was not used to interpret this result as normal/abnormal . Alkaline phosphatase 261 U/L 35-144 H (test code = 6768-6) AST (test code = 26 U/L 10-35 1920-8) ALT (test code = 17 U/L 9-46 1742-6) JOSEFA (test code = FASTING:YES JOSEFA) FASTING: YES RAC (test code = Performing RAC) Organization Information: Site ID: RGA Name: [facility] Address: [address] [place] [address] Director: Robert Scott Lab Interpretation Abnormal (test code = 64084-9) [facility] [id number] 16:23:00 Test Item Value Reference Range Interpretation Comments Magnesium (test code 1.6 mg/dL 1.5-2.5 = 79903-9) JOSEFA (test code = JOSEFA) FASTING:YES FASTING: YES RAC (test code = RAC) Performing Organization Information: Site ID: RGA Name: [facility] Address: [address] [place] [address] Director: Robert Scott [facility] with platelet and [id number] 16:23:00 Test Item Value Reference Range Interpretation Comments WBC (test code = 10.1 See_Comment [Automated 6690-2) message] The system which generated this result transmitted reference range : 3.8 - 10.8 Thousand/uL. Th e reference range was not used to interpret this result as normal/abnormal . RBC (test code = 4.45 See_Comment [Automated 919-8) message] The system which generated this result [...] RAC) Organization Information: Site ID: RGA Name: [facility] Address: [address] [place] [address] Director: Robert Scott Lab Interpretation Abnormal (test code = 18646-0) [facility] [id number] 16:23:00 Test Item Value Reference Interpretation Comments Range Alpha 2.4 ng/mL <=6.1 This test was performed fetoprotein using the Beck an (test code = Coulterchemilum inescent 84358-9) method. Values obtained fromdifferent a ssay methods cannot be usedinterchange ably. AFP levels, regardl ess ofvalue, should not be interpreted as absoluteevidenc e of the presence or abs ence of disease. JOSEFA (test code FASTING:YES = JOSEFA) FASTING: YES RAC (test code Performing = RAC) Organization Information: Site ID: IG Name: [facility] Address: [address] [place] [address] Director: Dr. Fran Bolanos [id number] Tacrolimus level, [id number] 16:23:00 Test Item Value Reference Range Interpretation Comments Tacrolimus, 6.5 mcg/L No definitive highly therapeutic or toxic sensitive, ranges have LC/MS/MS beenestablished . (test code = Optimal blood d rug 07603-2) levels are influencedby ty pe of transplant, pat ient response, time post-transplant , co-administrati on of other drugs, an d drug formulation. Th e following troug h range is a suggested guideline: 5.0- 20.0 mcg/L. This macrina t was developed and i ts analytical perf ormance characteristics have been determined by [employer]. It has not been cl eared or approved by theA. This assay has been validated pursu ant to the CLIA regula tions and is used for clinical purpos es. JOSEFA (test FASTING:YES code = JOSEFA) FASTING: YES RAC (test Performing code = RAC) Organization Information: Site ID: IG Name: [facility] Address: [address] [place] [address] [place] [address] Director: Dr. Fran Guajardo [facility] METABOLIC PANEL, [id number] 16:23:00 Test Item Value Reference Range Interpretation Comments Glucose (test 99 mg/dL 65-99 Fasting refer ence code = 2345-7) interval BUN (test code = 13 mg/dL 7-25 3094-0) Creatinine (test 1.27 mg/dL 0.70-1.35 code = 2160-0) eGFR (test code = 65 See_Comment [Automate d 05429-4) message] The system which generated this result [...] CO2 (test code = 20 mmol/L 20-32 2028-02) Calcium (test 9.2 mg/dL 8.6-10.3 code = 99545-9) JOSEFA (test code = FASTING:YES JOSEFA) FASTING: YES RAC (test code = Performing RAC) Organization Information: Site ID: RGA [facility]: [facility] Address: [address] [place] [address] Director: Robert Scott [facility] [id number] 13:58:00 Test Item Value Reference Range Interpretation Comments POC creatinine (test 1.6 mg/dl 0.7-1.2 H Operato r Name: code = 66984-0) [employer] Device ID: [id number] Lab Interpretation (test Abnormal code = 38570-7) [facility] [id number] 13:58:00 Test Item Value Reference Range Interpretation Comments Estimated GFR (test 46 mL/min/1.73 m2 A Jeanette julio Units code = 76448-7) Interpretati onG1 >=90 Normal or highG 2 60-89 Mildly decrease dG3a 45-59 Mildly to moderately decr qmqcfC0s 30-44 Moderatel y to severely decrea sedG4 15-29 Severely decreasedG5 <15 Kidney failureThe eGFR was calculated usin g the Chronic Kidney Disease Epidemiology Collaboration ( CKD-EPI) equation. Interpretation is based on recommendati ons of the National Ki dney Foundation-Kidn ey Disease Outcome s Quality Initiat agustín (NKF-KDOQI) pub lished in 2013. Lab Interpretation Abnormal (test code = 16454-2) [facility] [id number] 13:58:00 Test Item Value Reference Range Interpretation Comments POC creatinine (test 1.6 mg/dl 0.7-1.2 H Operato r Name: code = 64326-5) [employer] Device ID: [id number] Lab Interpretation (test Abnormal code = 71655-1) [facility] [id number] 13:58:00 Test Item Value Reference Range Interpretation Comments Estimated GFR (test 46 mL/min/1.73 m2 A Caterg ory Units code = 42012-7) Interpretati onG1 >=90 Normal or highG 2 60-89 Mildly decrease dG3a 45-59 Mildly to moderately decr tigscY0d 30-44 Moderatel y to severely decrea sedG4 15-29 Severely decreasedG5 <15 Kidney failureThe eGFR was calculated usin g the Chronic Kidney Disease Epidemiology Collaboration ( CKD-EPI) equation. Interpretation is based on recommendati ons of the [facility] ey Disease Outcome s Quality Initiat agustín ([facility]-KDOQI) pub lished in 2013. Lab Interpretation Abnormal (test code = 43131-7) [facility] [id number] 13:58:00 Test Item Value Reference Range Interpretation Comments POC creatinine (test 1.6 mg/dl 0.7-1.2 H Operato r Name: code = 65827-4) Linda Quintana Device ID: [id number] Lab Interpretation (test Abnormal code = 20721-6) [facility] [id number] 13:58:00 Test Item Value Reference Range Interpretation Comments Estimated GFR (test 46 mL/min/1.73 m2 A Caterg ory Units code = 14242-0) Interpretati onG1 >=90 Normal or highG 2 60-89 Mildly decrease dG3a 45-59 Mildly to moderately decr fhqjeD3x 30-44 Moderatel y to severely decrea sedG4 15-29 Severely decreasedG5 <15 Kidney failureThe eGFR was calculated usin g the Chronic Kidney Disease Epidemiology Collaboration ( CKD-EPI) equation. Interpretation is based on recommendati ons of the [facility] Disease Outcome s Quality Initiat agustín ([facility]-KDOQI) pub lished in 2013. Lab Interpretation Abnormal (test code = 90637-3) [facility] [id number] 19:13:00 Test Item Value Reference Range Interpretation Comments Protein (test code = 7.3 g/dL 6.1-8.1 2885-2) Albumin, S (test 4.2 g/dL 3.6-5.1 code = 1751-7) Globulin, total See_Comment [Automated (test code = message] The 31277-6) system which generated this result transmitted reference [...] = Performing RAC) Organization Information: Site ID: [facility] Name: [facility] Address: [address] [place], [place] [id number] Director: Fran Guajardo Lab Interpretation Abnormal (test code = 79963-0) [facility]2022-06-14 19:13:00 Test Item Value Reference Range Interpretation Comments Magnesium (test code 2.0 mg/dL 1.5-2.5 = 90814-7) JOSEFA (test code = JOSEFA) FASTING:YES FASTING: YES RAC (test code = RAC) Performing Organization Information: Site ID: [facility] Name: [facility] Address: [address] [place] [address] Director: Fran Guajardo [facility] with platelet and [id number] 19:13:00 Test Item Value Reference Range Interpretation [...] = Performing RAC) Organization Information: Site ID: [facility] Name: [facility] Address: [address] [place], [place] [address] Director: Fran Guajadro Lab Interpretation Abnormal (test code = 70369-6) [facility] with [id number] 19:13:00 Test Item Value Reference Range Interpretation Comments INR (test code = Reference R marlo 6301-6) 0.9-1.1Moderate -i ntensity Warfar in Therapy 2.0-3.0Higher-i nt ensity Warfarin Therapy 3.0-4.0 Prothrombin time See_Comment For additio nal (test code = information, 5902-2) please refer [email or web address] io n.Glamitdiagnost shoply/faq/FAQ10 4( This link is being provided for informational/e du cational purpos es only.) [Automat ed message] The system which generated this result transmitted reference range : 9.0 - 11.5 sec. The reference range was not used to interpr et this result as normal/abnormal . JOSEFA (test code = FASTING:YES JOSEFA) FASTING: YES RAC (test code = Performing RAC) Organization Information: Site ID: [facility] Name: [facility] Address: [address] [place] [address] Director: Fran Guajardo [facility] Tacrolimus level, [id number] 19:13:00 Test Item Value Reference Range Interpretation Comments Tacrolimus, mcg/L No definitive highly therapeutic or toxic sensitive, ranges have LC/MS/MS beenestablished . (test code = Optimal blood d rug 64259-8) levels are influencedby ty pe of transplant, pat ient response, time post-transplant , co-administrati on of other drugs, an d drug formulation. Th e following troug h range is a suggested guideline: 5.0- 20.0 mcg/L. This macrina t was developed and i ts analytical perf ormance characteristics have been determined by [employer]. It has not been cl eared or approved by theA. This assay has been validated pursu ant to the CLIA regula tions and is used for clinical purpos es. JOSEFA (test FASTING:YES code = JOSEFA) FASTING: YES RAC (test Performing code = RAC) Organization Information: Site ID: IG Name: [facility] Address: [address] [place] [address] [place] [address] Director: Dr. Fran Guajardo [facility] METABOLIC PANEL, [id number] 19:13:00 Test Item Value Reference Interpretation Comments [...] n. EGFR Non-Afr. See_Comment [Automated me ssage] [place] (test code The syst em which = 6835) generated this result transmit rodrigo reference range : > OR = 60 mL/min/1.73m2. The reference range was not used to interpret this result as normal/abnormal . EGFR See_Comment [Automated mes dhruv] [place] (test code The syst em which = 3427) generated this result transmit rodrigo reference range [...] . Sodium (test code = 139 mmol/L 277-606 7335-2) Potassium (test 4.8 mmol/L 3.4-4.8 code = 2823-3) Chloride (test code 107 mmol/L 98-110 = 2075-0) CO2 (test code = 20 mmol/L 20-32 2028-9) Calcium (test code 9.8 mg/dL 8.6-10.3 = 71229-4) JOSEFA (test code = FASTING:YES JOSEFA) FASTING: YES RAC (test code = Performing RAC) Organization Information: Site ID: RGA Name: [facility] Address: [address] [place] [phone] Director: Fran Guajardo Lab Interpretation Abnormal (test code = 26670-9) [facility]atidyleth[facility], [id number] 19:13:00 Test Item Value Reference Interpretation Comments Range Phosphatidylethan 600 ng/mL H Reporting Limit: 20 ng/mL ol, blood (test Synonym(s): Phosphatidyl code = 51136-1) Ethanol; PethPhosphatidy lethanol (PEth) is an ethanol-derived [...] and i ts performance characteristics determined by [facility]. It has not been cleared or approved by the US Food and Drug Administration. JOSEFA (test code = FASTING:YES JOSEFA) FASTING: YES RAC (test code = Performing RAC) Organization Information: Site ID: T7A Name: [facility] Address: [address] [place] [address] KATHRYN Manjarrez [address] Director: Fran Brar PH.D, F-AB Lab Abnormal Interpretation (test code = 44434-9) [facility] function [id number] 19:13:00 Test Item Value Reference Range Interpretation [...] RAC) Organization Information: Site ID: RGA Name: [facility] Address: [address] [place] [address] Director: Fran Guajardo Lab Interpretation Abnormal (test code = 95358-8) [facility]enton[facility] [id number] 19:13:00 Test Item Value Reference Range Interpretation Comments Magnesium (test code 2.0 mg/dL 1.5-2.5 = 77658-3) JOSEFA (test code = JOSEFA) FASTING:YES FASTING: YES RAC (test code = RAC) Performing Organization Information: Site ID: RGA [facility]: [facility] Address: [address] [place] [address] Director: Fran Guajardo [facility] with platelet and [id number] 19:13:00 Test Item Value Reference Range Interpretation Comments WBC (test code = See_Comment [Automated 9490-2) message] The system which generated this result transmitted reference range : 3.8 - 10.8 Thousand/uL. Th e reference range was not used to interpret this result as normal/abnormal . RBC (test code = See_Comment [Automated 899-8) message] The system which generated this result [...] RAC) Organization Information: Site ID: RGA Name: [facility] Address: [address] [place] [address] Director: Fran Guajardo Lab Interpretation Abnormal (test code = 44570-5) [facility] with [id number] 19:13:00 Test Item Value Reference Range Interpretation Comments INR (test code = Reference R marlo 6301-6) 0.9-1.1Moderate -i ntensity Warfar in Therapy 2.0-3.0Higher-i nt ensity Warfarin Therapy 3.0-4.0 Prothrombin time See_Comment For additio nal (test code = information, 5902-2) please refer tohttp://educat io n.Glamitdiagnost shoply/faq/FAQ10 4( This link is being provided for [...] RAC) Organization Information: Site ID: RGA Name: [facility] Address: [address] [place] [address] Director: Fran FinkThe [facility] Hospital of Salem CountyWttzgvnxYD755 Tacrolimus level, [id number] 19:13:00 Test Item Value Reference Range Interpretation Comments Tacrolimus, mcg/L No definitive highly therapeutic or toxic sensitive, ranges have LC/MS/MS beenestablished . (test code = Opt[place] 39226-5) levels are influencedby ty pe of transplant, pat ient response, time post-transplant , co-administrati on of other drugs, an d drug formulation. Th e following troug h range is a suggested guideline: 5.0- 20.0 mcg/L. This macrina t was developed and i ts analytical perf ormance characteristics have been determined by [facility]. It has not been cl eared or approved by theFDA. This assay has been validated pursu ant to the CLIA regula tions and is used for clinical purpos es. JOSEFA (test FASTING:YES code = JOSEFA) FASTING: YES RAC (test Performing code = RAC) Organization Information: Site ID: IG Name: [facility] Address: [address] [place] [address] Director: Dr. Fran Guajardo [facility]entonBASI METABOLIC PANEL, [id number] 19:13:00 Test Item Value Reference Interpretation Comments [...] n. EGFR Non-Afr. See_Comment [Automated me ssage] [place] (test code The syst em which = 2775) generated this result transmit rodrigo reference range : > OR = 60 mL/min/1.73m2. The reference range was not used to interpret this result as normal/abnormal . EGFR See_Comment [Automated mes dhruv] [place] (test code The syst em which = [...] . Sodium (test code = 139 mmol/L 555-518 4042-2) Potassium (test 4.8 mmol/L 3.4-4.8 code = 2823-3) Chloride (test code 107 mmol/L 98-110 = 2075-0) CO2 (test code = 20 mmol/L 20-32 8-9) Calcium (test code 9.8 mg/dL 8.6-10.3 = 56525-2) JOSEFA (test code = FASTING:YES JOSEFA) FASTING: YES RAC (test code = Performing RAC) Organization Information: Site ID: RGA Name: [facility] Address: [address] [place] [phone] Director: Fran Guajardo Lab Interpretation Abnormal (test code = 92670-0) [facility]entonPhosphatidylethanol, [id number] 19:13:00 Test Item Value Reference Interpretation Comments Range Phosphatidylethan 600 ng/mL H Reporting Limit: 20 ng/mL ol, blood (test Synonym(s): Phosphatidyl code = 70659-7) Ethanol; PethPhosphatidy lethanol (PEth) is an ethanol-derived [...] and i ts performance characteristics determined by [facility]. It has not been cleared or approved by the US Food and Drug Administration. JOSEFA (test code = FASTING:YES JOSEFA) FASTING: YES RAC (test code = Performing RAC) Organization Information: Site ID: T7A Name: [facility] Address: [address] [place] [address] KATHRYN Manjarrez [address] Director: Fran Brar PH.D, -[facility] Lab Abnormal Interpretation (test code = 91365-8) [facility] function [id number] 19:13:00 Test Item Value Reference Range Interpretation Comments Protein (test code = 7.3 g/dL 6.1-8.1 2885-2) Albumin, S (test 4.2 g/dL 3.6-5.1 code = 175-7) Globulin, total See_Comment [Automated (test code = [...] RAC) Organization Information: Site ID: EDUAR Name: [facility] Address: [address] [place] [address] Director: Fran Guajardo Lab Interpretation Abnormal (test code = 09529-2) [facility] [id number] 19:13:00 Test Item Value Reference Range Interpretation Comments Magnesium (test code 2.0 mg/dL 1.5-2.5 = 18690-4) JOSEFA (test code = JOSEFA) FASTING:YES FASTING: YES RAC (test code = RAC) Performing Organization Information: Site ID: EDUAR Name: [facility] Address: [address] [place] [phone] Director: Fran Guajardo [facility] with platelet and [id number] 19:13:00 Test Item Value Reference Range Interpretation Comments WBC (test code = See_Comment [Automated 6690-2) message] The system which generated this result transmitted reference range : 3.8 - 10.8 Thousand/uL. Th e reference range was not used to interpret this result as normal/abnormal . RBC (test code = See_Comment [Automated 469-8) message] The system which generated this result [...] RAC) Organization Information: Site ID: RGA Name: [facility] Address: [address] [place] [address] Director: Fran Guajardo Lab Interpretation Abnormal (test code = 85798-8) [facility]enton[facility]thrombin time with [id number] 19:13:00 Test Item Value Reference Range Interpretation Comments INR (test code = Reference R marlo 6301-6) 0.9-1.1Moderate -i ntensity Warfar in Therapy 2.0-3.0Higher-i nt ensity Warfarin Therapy 3.0-4.0 Prothrombin time See_Comment For additio nal (test code = information, 5902-2) please refer tohttp://educat io n.Pixelated/faq/FAQ10 4( This link is being provided for [...] RAC) Organization Information: Site ID: RGA Name: [facility] Address: [address] [place] [address] Director: Fran Guajardo [facility] ZicjrmtrHE212 Tacrolimus level, [id number] 19:13:00 Test Item Value Reference Range Interpretation Comments Tacrolimus, mcg/L No definitive highly therapeutic or toxic sensitive, ranges have LC/MS/MS beenestablished . (test code = Optimal blood d rug 92814-5) levels are influencedby ty pe of transplant, pat ient response, time post-transplant , co-administrati on of other drugs, an d drug formulation. Th e following troug h range is a suggested guideline: 5.0- 20.0 mcg/L. This macrina t was developed and i ts analytical perf ormance characteristics have been determined by [employer] [facility]. It has not been cl eared or approved by theFDA. This assay has been validated pursu ant to the CLIA regula tions and is used for clinical purpos es. JOSEFA (test FASTING:YES code = JOSEFA) FASTING: YES RAC (test Performing code = RAC) Organization Information: Site ID: IG Name: [facility] Address: [address] [place] [address] Director: Dr. Fran Guajardo [facility] METABOLIC PANEL, [id number] 19:13:00 Test Item Value Reference Interpretation Comments Range Glucose (test code 104 mg/dL 65-99 H Fasting reference = 2345-7) interval For so melatha without known diabetes, a glu cose valuebetween [...] n. EGFR Non-Afr. See_Comment [Automated me ssage] [place] (test code The syst em which = 2775) generated this result transmit rodrigo reference range : > OR = 60 mL/min/1.73m2. The reference range was not used to interpret this result as normal/abnormal . EGFR See_Comment [Automated mes dhruv] [place] (test code The syst em which = [...] . Sodium (test code = 139 mmol/L 915-800 6568-2) Potassium (test 4.8 mmol/L 3.4-4.8 code = 2823-3) Chloride (test code 107 mmol/L 98-110 = 2075-0) CO2 (test code = 20 mmol/L 20-32 8-9) Calcium (test code 9.8 mg/dL 8.6-10.3 = 01165-8) JOSEFA (test code = FASTING:YES JOSEFA) FASTING: YES RAC (test code = Performing RAC) Organization Information: Site ID: RGA Name: [facility] Address: [address] [place] [address] Director: Fran Guajardo Lab Interpretation Abnormal (test code = 09981-8) [facility]entonPhosphatidylethanol, [id number] 19:13:00 Test Item Value Reference Interpretation Comments Range Phosphatidylethan 600 ng/mL H Reporting Limit: 20 ng/mL ol, blood (test Synonym(s): Phosphatidyl code = 89733-6) Ethanol; PethPhosphatidy lethanol (PEth) is an ethanol-derived [...] and i ts performance characteristics determined by [facility]. It has not been cleared or approved by the US Food and Drug Administration. JOSEFA (test code = FASTING:YES JOSEFA) FASTING: YES RAC (test code = Performing RAC) Organization Information: Site ID: T7A Name: [facility] Address: [address] [place] [address] KATHRYN Manjarrez [address] Director: Fran Brar PH.D, -[facility] Lab Abnormal Interpretation (test code = 64801-2) [facility] metabolic [id number] 01:17:00 Test Item Value Reference Interpretation Comments [...] EGFR Non-Afr. See_Comment L [Automated me ssage] [place] (test code The syst em which = 3035) generated this result transmit rodrigo reference range : > OR = 60 mL/min/1.73m2. The reference range was not used to interpret this result as normal/abnormal . EGFR See_Comment L [Automated mes dhruv] [place] (test code The syst em which = [...] . Sodium (test code = 138 mmol/L 169-611 7504-2) Potassium (test 4.9 mmol/L 3.5-5.3 code = 2823-3) Chloride (test code 106 mmol/L 98-110 = 2075-0) CO2 (test code = 26 mmol/L 20-32 2027-9) Calcium (test code 8.8 mg/dL 8.6-10.3 = 64261-1) Protein (test code 6.4 g/dL 6.1-8.1 = 2885-2) Albumin, S (test 3.8 g/dL 3.6-5.1 code = 1751-7) Globulin, total See_Comment [Automated message] (test code = [place] [address]-3) generated this result transmit rodrigo reference range : 1.9 - 3.7 g/dL (jose eduardo c). The reference r marlo was not used to interpret this result as normal/abnormal . Albumin/globulin See_Comment [Automated message] ratio (test code = [facility] which 1759-0) generated this result transmit rodrigo [...] RAC) Organization Information: Site ID: EDUAR Name: [facility] Address: [address] [place] [address] Director: Fran Guajardo Lab Interpretation Abnormal (test code = 68426-1) [facility] [id number] 01:17:00 Test Item Value Reference Range Interpretation Comments Magnesium (test code 2.1 mg/dL 1.5-2.5 = 16316-1) JOSEFA (test code = JOSEFA) FASTING:YES FASTING: YES RAC (test code = RAC) Performing Organization Information: Site ID: LAXMIA Name: [facility] Address: [address] [place] [address] Director: Fran Guajardo [facility] with platelet and [id number] 01:17:00 Test Item Value Reference Range Interpretation Comments WBC (test code = See_Comment [Automated 2090-2) message] The system which generated this result transmitted reference range : 3.8 - 10.8 Thousand/uL. Th e reference range was not used to interpret this result as normal/abnormal . RBC (test code = See_Comment [Automated 479-8) message] The system which generated this result [...] RAC) Organization Information: Site ID: RGA Name: [facility] Address: [address] [place] [address] Director: Fran Guajardo Lab Interpretation Abnormal (test code = 88957-4) [facility] with [id number] 01:17:00 Test Item Value Reference Range Interpretation Comments INR (test code = Reference R marlo 6301-6) 0.9-1.1Moderate -i ntensity Warfar in Therapy 2.0-3.0Higher-i nt ensity Warfarin Therapy 3.0-4.0 Prothrombin time See_Comment For additio nal (test code = information, 5902-2) please refer tohttp://educat io n.Pixelated/faq/FAQ10 4( This link is being provided for [...] RAC) Organization Information: Site ID: RGA Name: [facility] Address: [address] [place] [address] Director: Fran Guajardo [facility]entonFK506 Tacrolimus level, [id number] 01:17:00 Test Item Value Reference Range Interpretation Comments Tacrolimus, mcg/L No definitive highly therapeutic or toxic sensitive, ranges have LC/MS/MS beenestablished . (test code = Optimal blood d rug 28812-9) levels are influencedby ty pe of transplant, pat ient response, time post-transplant , co-administrati on of other drugs, an d drug formulation. Th e following troug h range is a suggested guideline: 5.0- 20.0 mcg/L. This macrina t was developed and i ts analytical perf ormance characteristics have been determined by [facility]. It has not been cl eared or approved by theA. This assay has been validated pursu ant to the CLIA regula tions and is used for clinical purpos es. JOSEFA (test FASTING:YES code = JOSEFA) FASTING: YES RAC (test Performing code = RAC) Organization Information: Site ID: IG Name: [facility] Address: [address] [place] [address] Director: Dr. Fran Guajardo [facility]entonPhosphatidylethanol, [id number] 22:55:00 Test Item Value Reference Interpretation Comments Range Phosphatidylethan 970 ng/mL H Reporting Limit: 20 ng/mL ol, blood (test Synonym(s): Phosphatidyl code = 51736-6) Ethanol; PET H; PethPhosphatidy lethanol (PEth) is [...] and i ts performance characteristics determined by [facility]. It has not been cleared or approved by the US Food and Drug Administration. JOSEFA (test code = FASTING:YES JOSEFA) FASTING: YES RAC (test code = Performing RAC) Organization Information: Site ID: T7A Name: [facility] Address: [address] [place] [address] KATHRYN Manjarrez [address] Director: Fran Brar PH.D, F-[facility] Lab Abnormal Interpretation (test code = 34339-0) [facility]
[2023-04-09] MEDS ORDERED: CEFTRIAXONE 1000 MG/VIAL ONE (02:02)
[2023-04-09] MEDS ORDERED: ACETAMINOPHEN 500 MG TAB ONE (02:02)
[2023-04-09] MEDS ORDERED: ALBUTEROL 2.5 MG/3 ML NEB SOL ONE (02:02)
[2023-04-09] MEDS ORDERED: IPRATROPIUM BROM 0.5MG/2.5ML ONE (02:03)
[2023-04-09] MEDS ORDERED: NA CHLORIDE 0.9% 250 ML ONE (02:03)
[2023-04-09] MEDS ORDERED: AZITHROMYCIN 500 MG INJ IVPB ONE (02:03)
[2023-04-09 02:04] LABS: Absolute Lymphocytes (CBC) 1.4 K/uL (0.7-4.9); Hematocrit 37.2 % (39.6-49.0); Lymphocytes % 14.1 % (15.3-44.8); MPV 7.1 fL (7.6-11.3); Platelets 336 thou/uL (152-406); RBC Red Blood Cell Count 3.79 M/uL (4.33-5.43)
[2023-04-09 02:17] LABS: Albumin 2.3 g/dL (3.4-5.0); Bilirubin Total 0.4 mg/dL (0.2-1.0); Potassium 3.9 mEq/L (3.5-5.1); Protein, Total 6.7 g/dL (6.4-8.2); Troponin High Sensitivity 6.7 pg/mL (<58.9)
[2023-04-09] MEDS ORDERED: DIAZEPAM 10 MG/2 ML INJ SYRINGE ONE (03:26)
--- NOTE | 2023-04-09 04:39 | EDPHYS ---
Physician Documentation [facility] Name: Javier Saravia Age: 62 yrs Sex: Male : 1960 Arrival Date: 04/09/2023 Time: 00:49 Bed 5 Private MD: ED Physician Raymond Tran HPI: 04/09 01:35 This 62 yrs old Male presents to ER via Ambulatory with complaints of ec2 Shortness Of Breath, Chest Congestion. 01:35 Patient arrives today due to concern for progressive shortness of breath. Patient been ec2 having approximately 1 month of cough and cold symptoms which have progressed over the past week. Patient reports no issues with nausea or vomiting, no diarrhea symptoms. Patient reports that he feels short of breath when he lies flat. No previous cardiac disease that he is aware of, no history of heart failure. Denies leg swelling.. Historical: - Allergies: 01:14 No Known Allergies; lg3 - PMHx: 01:14 Cirrhosis; Hypertension; psoriasis; lg3 - PSHx: 01:14 Cholecystectomy; left leg (tr); liver transplant; lg3 - Immunization history:: Adult Immunizations up to date, Client reports having NOT received the Covid vaccine. Flu vaccine is not up to date. - Social history:: Smoking status: Patient denies any tobacco usage or history of. Patient uses alcohol, occasionally. ROS: 01:35 Constitutional: uri s/s, sob ec2 Exam: 01:35 Constitutional: GEN: NAD Head: atraumatic Eyes: EOMI Ears: External ears are ec2 normal. CV: regular rate, no lower extremity edema. LUNGS: Scattered rhonchi noted ABD: non-distended SKIN: no evidence of rashes MSK: no evidence of trauma NEURO: moves all extremities equally Vital Signs: 01:12 BP 107 / 64; Pulse 77; Resp 19 S; Temp 98.1(O); Pulse Ox 87% on R/A; Weight 115.67 kg lg3 (R); Height 5 ft. 8 in. (R); Pain 0/10; 01:30 BP 116 / 62; Pulse 78; Resp 19; Pulse Ox 94% on 4 lpm NC; km8 01:45 BP 122 / 78; Pulse 74; Resp 19; Pulse Ox 94% on 4 lpm NC; km8 02:00 BP 116 / 72; Pulse 82; Resp 18 S; Pulse Ox 100% on 4 lpm NC; km8 02:30 BP 110 / 57; Pulse 95; Resp 24; Pulse Ox 93% on 2 lpm NC; km8 03:00 BP 121 / 60; Pulse 96; Resp 20; Pulse Ox 96% on 2 lpm NC; km8 03:30 BP 125 / 57; Pulse 95; Resp 17; Pulse Ox 92% on 2 lpm NC; km8 04:00 BP 114 / 58; Pulse 89; Resp 18; Pulse Ox 93% on 2 lpm NC; km8 04:30 BP 118 / 65; Pulse 90; Resp 19 S; Pulse Ox 94% on R/A; km8 01:12 Body Mass Index 38.77 (115.67 kg, 172.72 cm) lg3 01:12 Pain Scale: Adult lg3 MDM: 00:59 Patient medically screened. ec2 01:35 ED course: Patient arrives today due to concern for progressive shortness of breath in ec2 setting of known URI symptoms. Examination remarkable for well-appearing individual who was noted to be hypoxic on arrival requiring supplemental oxygen. Will obtain septic work-up, treat the patient empirically with antibiotics. Currently considering processes such as viral pneumonia, pneumonia, CHF. EKG obtained, independently reviewed and interpreted by me, shows normal sinus rhythm, rate of 80, no acute ST segment elevations, nonconcerning intervals. . 02:23 ED course: CBC is remarkable for slight anemia, no leukocytosis, metabolic profile ec2 shows slight hyponatremia with a sodium of 128, renal function is otherwise appropriate, lactic within normal ranges at 1.2. BNP at 114. Troponin within normal ranges. Chest x-ray shows interstitial edema. . 03:10 ED course: Patient with increasing anxiety, we will give him 2.5 mg of Valium. I ec2 further discussed his shortness of breath as well as oxygen requirement, consider doing BiPAP however patient reports significant claustrophobia. Patient also reports that he does drink at least a sixpack of beer per day, patient may be having some early alcohol withdrawal causing his anxiety. . 03:10 ED course: Ultimately patient is a liver transplant individual who would be best suited ec2 at a facility with transplant physicians. I discussed case with our hospitalist who agreed with this. We will attempt to reach out to his primary facility at [facility] for further management of his hypoxia secondary to pneumonia versus volume overload.. 04:36 ED course: On reassessment patient reports marked improvement in his symptoms. Patient ec2 states that he wishes to go home. I instructed him this is not a good decision given his liver transplantation status as well as his immunosuppression and concern for progression of disease. Patient is of sound decision-making and I instructed him to return if symptoms worsen. Outpatient-antibiotics however the patient is going to leave AGAINST MEDICAL ADVICE.. ED course: We had an accepting facility however the patient states that he did not want to be transferred.. 04:39 Data reviewed: vital signs. 2 04/09 01:10 Order name: Blood Culture Adult (2) 2 04/09 01:10 Order name: CBC with Diff; Complete Time: 02:22 2 04/09 01:10 Order name: CMP; Complete Time: 02:22 2 04/09 01:10 Order name: Lactate w/ 2H reflex if indic.; Complete Time: 02:22 2 04/09 01:10 Order name: COVID-19 SARS RT PCR; Complete Time: 02:34 ec2 04/09 01:10 Order name: Influenza Screen (a \T\ B) 2 04/09 01:10 Order name: BNP; Complete Time: 02:22 2 04/09 01:10 Order name: Troponin High Sensitivity; Complete Time: 02:22 ec2 04/09 01:10 Order name: Chest Single View XRAY 2 04/09 01:10 Order name: EKG; Complete Time: 01:11 2 04/09 01:10 Order name: Accucheck; Complete Time: 02:12 2 04/09 01:10 Order name: Cardiac monitoring; Complete Time: :36 ec2 04/09 01:10 Order name: EKG - Nurse/Tech; Complete Time: 01:36 ec2 04/09 01:10 Order name: IV Saline Lock - Large Bore; Complete Time: :36 ec2 04/09 01:10 Order name: Labs collected and sent; Complete Time: :36 ec2 04/09 01:10 Order name: O2 Per Protocol; Complete Time: :36 ec2 04/09 01:10 Order name: O2 Sat Monitoring; Complete Time: :36 ec2 04/09 01:10 Order name: Vital Signs; Complete Time: 01:36 ec2 Administered Medications: 02:05 Drug: Acetaminophen PO 1000 mg PO once Route: PO; km8 03:05 Follow up: Response: No adverse reaction km 02:05 Drug: Rocephin IV 1 grams IV at calculated rate once; Given slow IV push per pharmacy km8 instructions Route: IV; Rate: calculated rate; Site: right antecubital; 02:20 Follow up: Response: No adverse reaction; IV Status: Completed infusion; IV Intake: [id number] 02:05 Drug: AZITHromycin IVPB 500 mg IVPB once over 1 hrs; (mix in 250 mL NS) Route: IVPB; km8 Infused Over: 1 hrs; Site: left forearm; 03:05 Follow up: Response: No adverse reaction; IV Status: Completed infusion; IV Intake: km8 250ml 02:05 Drug: DuoNeb Nebulize (3:1) (2.5 mg - 0.5 mg) 3 ml Nebulizer once Route: Nebulizer; [facility] 02:21 Follow up: Response: Anxiety increased; Wheezing diminished; ER doc at bedside to [facility] evaulated pt's shaking after albuterol treatment 03:16 Drug: Diazepam IVP 2.5 mg IVP once Route: IVP; Site: left forearm; 8 03:45 Follow up: Response: No adverse reaction; Marked relief of symptoms; Anxiety decreased; km8 RASS: Drowsy (-1) Disposition: 04:39 Critical Care:. ec2 Disposition Summary: 04/09/23 04:37 Left Against Medical Advice Notes: Location: Home ec2 Problem: an acute exacerbation ec2 Symptoms: have worsened ec2 Condition: Serious ec2 Diagnosis - Unspecified bacterial pneumonia ec2 - Sepsis, unspecified organism ec2 - Hypo-osmolality and hyponatremia ec2 Discharge Instructions: - Discharge Summary Sheet ec2 - Community-Acquired Pneumonia, Adult ec2 Prescriptions: - Augmentin 875-125 mg Oral Tablet - take 1 tablet ORAL route every 12 hours for 10 days; 20 tablet; Refills: 0, ec2 Product Selection Permitted - Doxycycline Hyclate 100 mg Oral Tablet - take 1 tablet ORAL route every 12 hours; 20 tablet; Refills: 0, Product ec2 Selection Permitted Critical care time excluding procedures: 04:39 Critical care time: Bedside Care: 30 minutes, Consultation: 5 minutes. Total time: 35 ec2 minutes Signatures: Dispatcher [employer] Karina Gregorio, RN RN lg3 Raymond Tran MD MD ec2 Marleni Bhakta RN RN km8
--- NOTE | 2023-04-09 04:39 | ER ---
Nurse's Notes [facility] Name: Javier Saravia Age: 62 yrs Sex: Male : 1960 Arrival Date: 04/09/2023 Time: 00:49 Bed 5 Private MD: Diagnosis: Unspecified bacterial pneumonia;Sepsis, unspecified organism;Hypo-osmolality and hyponatremia Presentation: 04/09 01:12 Chief complaint: Patient states: SOB, chest congestion, cough and dizziness X1 month lg3 and worsening. PT 87% on RA at triage. placed on 4L via NC. O2 100%. Coronavirus screen: Client denies travel out of the [place] in the last 14 days. Client presents with at least one sign or symptom that may indicate coronavirus-19. Standard/surgical mask placed on the client. Ebola Screen: No symptoms or risks identified at this time. Initial Sepsis Screen: Does the patient meet any 2 criteria? No. Patient's initial sepsis screen is negative. Does the patient have a suspected source of infection? Yes: Productive cough/pneumonia. Risk Assessment: Do you want to hurt yourself or someone else? Patient reports no desire to harm self or others. Onset of symptoms is unknown. 01:12 Method Of Arrival: Ambulatory lg3 01:12 Acuity: RD 3 lg3 Triage Assessment: 01:14 General: Appears in no apparent distress. uncomfortable, Behavior is calm, cooperative. lg3 Pain: Denies pain. EENT: No deficits noted. Reports nasal congestion. Neuro: No deficits noted. Coleman Agitation-Sedation Scale (RASS): 0 - Alert and Calm Level of Consciousness is awake, alert, obeys commands, Oriented to person, place, time, situation. Neuro: Reports dizziness. Cardiovascular: No deficits noted. Denies chest pain, Capillary refill < 3 seconds Clubbing of nail beds is absent JVD is absent Patient's skin is warm and dry. Respiratory: Reports shortness of breath at rest cough that is productive, persistent air hunger labored breathing Breath sounds are coarse bilaterally. Breath sounds with crackles Onset: The symptoms/episode began/occurred 1 month ago, the patient has moderate shortness of breath. GI: No deficits noted. No signs and/or symptoms were reported involving the gastrointestinal system. : No deficits noted. No signs and/or symptoms were reported regarding the genitourinary system. Derm: No signs and/or symptoms reported regarding the dermatologic system. Skin is intact, Skin is dry, Skin is dusky, Skin temperature is warm. Musculoskeletal: No deficits noted. No signs and/or symptoms reported regarding the musculoskeletal system. Circulation, motion, and sensation intact. Range of motion: intact in all extremities. Historical: - Allergies: 01:14 No Known Allergies; lg3 - PMHx: 01:14 Cirrhosis; Hypertension; psoriasis; lg3 - PSHx: 01:14 Cholecystectomy; left leg (tr); liver transplant; lg3 - Immunization history:: Adult Immunizations up to date, Client reports having NOT received the Covid vaccine. Flu vaccine is not up to date. - Social history:: Smoking status: Patient denies any tobacco usage or history of. Patient uses alcohol, occasionally. Screenin:30 [facility] ED Fall Risk Assessment (Adult) History of falling in the last 3 months, km8 including since admission No falls in past 3 months (0 pts) Confusion or Disorientation No (0 pts) Intoxicated or Sedated No (0 pts) Impaired Gait No (0 pts) Mobility Assist Device Used No (0 pt) Altered Elimination No (0 pt) Score/Fall Risk Level 0 - 2 = Low Risk Oriented to surroundings, Maintained a safe environment, Educated pt \T\ family on fall prevention, incl call for assistance when getting out of bed, Assessed \T\ reinforced patient's understanding of fall precautions. 01:30 Abuse screen: Denies threats or abuse. Denies injuries from another. Nutritional km8 screening: No deficits noted. Tuberculosis screening: Possible symptoms: cough for more than 2 weeks. Assessment: 01:30 General: Appears comfortable, ill, Behavior is calm, cooperative, appropriate for age. km8 01:30 Pain: Denies pain. Neuro: No deficits noted. Coleman Agitation-Sedation Scale (RASS): km8 0 - Alert and Calm Level of Consciousness is awake, alert, obeys commands, Oriented to person, place, time, situation. Cardiovascular: No deficits noted. Reports shortness of breath, Capillary refill < 3 seconds Patient's skin is warm and dry. Rhythm is regular. Respiratory: Reports shortness of breath cough that is Airway is patent Respiratory effort is even, labored, Respiratory pattern is regular, symmetrical, Breath sounds with crackles bilaterally. GI: No deficits noted. No signs and/or symptoms were reported involving the gastrointestinal system. : No deficits noted. No signs and/or symptoms were reported regarding the genitourinary system. EENT: No deficits noted. No signs and/or symptoms were reported regarding the EENT system. Derm: No deficits noted. No signs and/or symptoms reported regarding the dermatologic system. Skin is intact, is healthy with good turgor, Skin is dry, Skin is normal, Skin temperature is warm. Musculoskeletal: No deficits noted. No signs and/or symptoms reported regarding the musculoskeletal system. Circulation, motion, and sensation intact. Range of motion: intact in all extremities. 03:37 Reassessment: [facility] called back and declined due to capacity. kl 03:41 Reassessment: initiated transfer to [facility] spoke with Cassie. kl 04:30 General: pt states he feels much better and requesting to go home; pt educated on need km8 to wean off O2 before being able to go home safely; pt requesting to be taken off O2 and see how he does; aware and will re-evaluate pt in 30 mins; pt and/or to call out if condition worsens, acknowledges understanding. 04:46 Reassessment: PT SIGNED OUT AMA. ADVISED BY LMP AND STAFF TO REMAIN BUT DECLINED. PT bp URGED TO RETURN IF S/S WORSEN. AO4, VS STABLE. Vital Signs: 01:12 BP 107 / 64; Pulse 77; Resp 19 S; Temp 98.1(O); Pulse Ox 87% on R/A; Weight 115.67 kg lg3 (R); Height 5 ft. 8 in. (R); Pain 0/10; 01:30 BP 116 / 62; Pulse 78; Resp 19; Pulse Ox 94% on 4 lpm NC; km8 01:45 BP 122 / 78; Pulse 74; Resp 19; Pulse Ox 94% on 4 lpm NC; km8 02:00 BP 116 / 72; Pulse 82; Resp 18 S; Pulse Ox 100% on 4 lpm NC; km8 02:30 BP 110 / 57; Pulse 95; Resp 24; Pulse Ox 93% on 2 lpm NC; km8 03:00 BP 121 / 60; Pulse 96; Resp 20; Pulse Ox 96% on 2 lpm NC; km8 03:30 BP 125 / 57; Pulse 95; Resp 17; Pulse Ox 92% on 2 lpm NC; km8 04:00 BP 114 / 58; Pulse 89; Resp 18; Pulse Ox 93% on 2 lpm NC; km8 04:30 BP 118 / 65; Pulse 90; Resp 19 S; Pulse Ox 94% on R/A; km8 01:12 Body Mass Index 38.77 (115.67 kg, 172.72 cm) lg3 01:12 Pain Scale: Adult lg3 ED Course: 00:58 Patient arrived in ED. gm2 00:59 Raymond Tran MD is Attending Physician. ec2 01:14 Triage completed. lg3 01:14 Arm band placed on right wrist. lg3 01:17 Oxygen administration via nasal cannula \T\ 4L/min. lg3 01:30 Patient has correct armband on for positive identification. Placed in gown. Bed in low km8 position. Call light in reach. Side rails up X2. Client placed on continuous cardiac and pulse oximetry monitoring. NIBP monitoring applied. radiation monitor on. Door closed. Noise minimized. Warm blanket given. 01:30 Oxygen administration via nasal cannula \T\ 4L/min. km8 01:32 Inserted saline lock: 20 gauge in right antecubital area, using aseptic technique. km8 Blood collected. 01:34 Chest Single View XRAY In Process Unspecified. EDMS 01:35 Marleni Bhakta, RN is Primary Nurse. km8 01:35 Troponin High Sensitivity Sent. km8 01:35 BNP Sent. km8 01:35 Influenza Screen (a \T\ B) Sent. km8 01:36 COVID-19 SARS RT PCR Sent. km8 01:36 Blood Culture Adult (2) Sent. km8 01:36 CBC with Diff Sent. km8 01:36 CMP Sent. km8 01:36 Lactate w/ 2H reflex if indic. Sent. km8 01:36 Inserted saline lock: 22 gauge in left forearm, using aseptic technique. Blood km8 collected. 02:46 Contacted [facility] transfer center. Connected with [facility]. Initiated transfer. 4 04:47 No provider procedures requiring assistance completed. IV discontinued, intact, bp bleeding controlled, No redness/swelling at site. Pressure dressing applied. Administered Medications: 02:05 Drug: Acetaminophen PO 1000 mg PO once Route: PO; km8 03:05 Follow up: Response: No adverse reaction km8 02:05 Drug: Rocephin IV 1 grams IV at calculated rate once; Given slow IV push per pharmacy km8 instructions Route: IV; Rate: calculated rate; Site: right antecubital; 02:20 Follow up: Response: No adverse reaction; IV Status: Completed infusion; IV Intake: 95msan6 02:05 Drug: AZITHromycin IVPB 500 mg IVPB once over 1 hrs; (mix in 250 mL NS) Route: IVPB; km8 Infused Over: 1 hrs; Site: left forearm; 03:05 Follow up: Response: No adverse reaction; IV Status: Completed infusion; IV Intake: km8 250ml 02:05 Drug: DuoNeb Nebulize (3:1) (2.5 mg - 0.5 mg) 3 ml Nebulizer once Route: Nebulizer; km8 02:21 Follow up: Response: Anxiety increased; Wheezing diminished; ER doc at bedside to [facility] evaulated pt's shaking after albuterol treatment 03:16 Drug: Diazepam IVP 2.5 mg IVP once Route: IVP; Site: left forearm; km8 03:45 Follow up: Response: No adverse reaction; Marked relief of symptoms; Anxiety decreased; km8 RASS: Drowsy (-1) Intake: 02:20 IV: 10ml; Total: 10ml. km8 03:05 IV: 250ml; Total: 260ml. km8 Outcome: 04:47 AMA AMA form signed bp 04:47 Condition: stable 04:47 Discharge instructions given to patient, family, Instructed on discharge instructions, follow up and referral plans. medication usage, Demonstrated understanding of instructions, follow-up care, medications, Prescriptions given X 2, 04:47 Patient left the ED. bp Signatures: Dispatcher [employer] Josie Macario RN RN kl Peltier, Brian, RN RN bp Glenda Black mb4 Karina Paige RN RN 3 Raymond Tran MD MD 2 Aminah Chamberlain [facility] Marleni Bhakta RN RN km8
[2023-04-09 05:17] VITALS: TEMP 98.1
[2023-04-09 05:27] VITALS: BP 118/65; O2SAT 94
--- NOTE | 2023-04-09 14:40 | EKG ---
Test Date: 2023-04-09 Test Time: 01:32:21 Fashion Marketer: NANCY MEASUREMENT RESULTS: Intervals: Rate: 80 ID: [id number] QRSD: 90 QT: 380 QTc: 438 [place]: P: 36 ID: [id number] QRS: 57 T: 2 INTERPRETIVE STATEMENTS: Normal sinus rhythm Low voltage QRS Borderline ECG Compared to ECG 09/11/2021 04:44:09 Low QRS voltage now present Electronically Signed On 04-09-23 14:39:20 CDT by Jeremy Eubanks
--- NOTE | 2023-04-09 18:59 | RAD REPORT ---
EXAM DESCRIPTION: RAD - Chest Single View - 04/09/2023 1:32 am CLINICAL HISTORY: The patient is 62 years old and is Male; SOB TECHNIQUE: Frontal view of the chest. COMPARISON: No relevant prior studies available. FINDINGS: Lungs: Prominent interstitial markings which may indicate mild interstitial edema. Pleural space: Unremarkable. No pneumothorax. Heart: Unremarkable. Mediastinum: Unremarkable. Bones/joints: No acute findings. Upper abdomen: Elevation of the right hemidiaphragm. IMPRESSION: Prominent interstitial markings which may indicate mild interstitial edema. Electronically signed by: Antony Decker MD 04/09/2023 1:49 AM CDT Due to temporary technical issues with the PACS/Fluency reporting system, reports are being signed by the in house radiologists without review as a courtesy to insure prompt reporting. The interpreting radiologist is fully responsible for the content of the report.
== END 2023-04-09 04:47 | disposition left against medical advice (07) ==
LOC: ER 00:49
DX: J15.9 Unspecified bacterial pneumonia (principal); A41.9 Sepsis, unspecified organism; E87.1 Hypo-osmolality and hyponatremia; I10 Essential (primary) hypertension; Z20.822 Contact with and (suspected) exposure to COVID-19; Z94.4 Liver transplant status
CPT/HCPCS: 93005; 87040 ×2; 85025; 36415; 83605; 84484; 80053; 83880; 87635; 87804 ×2; 71045; 94640; 99285; J7613; J7644; J3360; J7050; J0696

== ENCOUNTER 2023-04-11 13:09 | Emergency (ER) | payer OTHER ==
--- OUTSIDE RECORDS SUMMARY | 2023-04-11 13:16 | XMS REPORT | Clinical Summary ---
:1960 Author Organization [facility] MD [facility] Address [address] [place] [address] Care Team Providers Name Role Phone Enrike Beltran MD Unavailable [phone] Allergies Not on File Medications Not on file Active Problems Not on file Social History Tobacco Use Types Packs/Day Years Used Date Smoking Tobacco: Never Assessed Sex and Gender Information Value Date Recorded Sex Assigned at Not on file Gender Identity Not on file Sexual Orientation Not on file Last Filed Vital Signs Not on file Plan of Treatment Not on file Results Not on fileafter 04/11/2022 Insurance Payer Benefit Plan / Subscriber ID Effective Phone Address T ype Group Dates [employer] MEDICARE [id number] [address] Medicare HEALTHCARE ADVANTAGE [place], [place] [employer] [id number] Care Teams Clean Room Technician Relationship Specialty Start Date End Date Enrike Beltran PCP - External Referring Orthopedic Surgery 02/15 MD [facility] [address] [facility] [address] [place] [address]
--- OUTSIDE RECORDS SUMMARY | 2023-04-11 13:17 | XMS REPORT | Continuity of Care Document ---
:1960 Author Organization [facility] t Address [address] [facility]. [address] [place] [address] Care Team Providers Name Role Phone Hernesto Magdaleno Gómez Primary Care Physician Roland Feng RN Attending Clinician Unavailable Olvin CORONA, Reynaldo Attending Clinician Lauryn Clayton MA Attending Clinician [...] AV MIGUEL Attending Clinician Unavailable Doctor Unassigned, [place] Attending Clinician Unavailable Kerline Bryant LCSW Attending Clinician Unavailable Nat Sanchez Attending Clinician Unavailable Henny Lozoya RN Attending Clinician Unavailable Polina Salas MA Attending Clinician Unavailable Yuli Pickering Attending Clinician Unavailable Pepper oJcelyn MALDONADO Attending Clinician Unavailable Shant Banerjee MD Attending Clinician Cleo Muse MA Attending Clinician Unavailable Rene Steele Attending Clinician Richy Almaguer MD Attending Clinician [phone] Attending Clinician Unavailable Therapy, [facility] Covid Infusion Attending Clinician Unavailable Richy Coyne MD Attending Clinician JERMAIN DOBBS Attending Clinician Unavailable ALVARO MALONE Attending Clinician Unavailable DORI GAMEZ Attending Clinician Unavailable CHUYITA COLLINS Attending Clinician Unavailable Payers Payer Name Policy Type Policy Number Effective Date Expiration Date Nakul JIMENEZNA MEDICARE OUT [id number] 2019 OF NETWORK 00:00:00 Problems Condition Condition [...] spita lower lower 00 l extremity extremity [id number] Disease Active Methodi 03-19 st 00:00: Hospita [...] transplant transplant st ed ed 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 Disease Active Met 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 current st [...] DRUG Active NAUSEA ONLY Univ ers INGREDI -20 ity of 00:00: [address] Branch Codeine Drug Active Nausea [facility] CODEINE Allergy Active [facility] NO KNOWN Drug Active Univers ALLERGIE Class ity of [facility] Family History Family Member Diagnosis Comments Start Date Stop Date Source Natural mother Stroke [facility] Natural mother Diabetes [facility] Natural mother Kidney disease [facility] Natural sister Arthritis [facility] Natural brother Diabetes [facility] Natural father Mental illness [facility] Social History Social Habit Start Date Stop Date Quantity Comments Source History SDOH [facility] Alcohol Frequency Hospita l History SDOH [facility] Alcohol Std Drinks Hospit al History SDOH [facility] Alcohol [facility] Sexual orientation [facility] MD [facility] Alcohol intake 2022-09-19 2022-09-[address] [facility] St [place] es 00:00:00 00:00:00 non-drinker of Medical Ce nter alcohol (finding) History of Social 2022-08-24 2022-08-[address] function 00:00:00 00:00:00 Hospital Alcohol Comment 2018-08-23 2018-08-23 previously [facility] 00:00:00 00:00:00 alcoholic, quit Hospital drinking 03/2008 Tobacco use and 2017-10-26 2017-10-26 Smokeless tobacco [facility] exposure 00:00:00 00:00:00 non-user Hospital Sex Assigned At [address] [facility] 00:00[facility]00 [facility]00 [facility] Center Smoking Status Start Date Stop Date Source Tobacco smoking consumption [facility] Never smoked tobacco [facility] Medications Ordered Filled Start Stop Current Ordering Indication Dosage Frequency Signature Comments Components Source Medication Medication Date Date Medication? Clinician (SIG) Name Name cece 2023- No [id number] Q7D Take 1 M ethodi rol 07-[address] (VITAMIN 00:00: 05:59 (50,000 Hospi ta D2) 50,000 00 :00 Units l unit total) by capsule mouth once a week. ergocalcife 2022-0 2023- No [id number] Q7D Take 1 M ethodi rol 2-03 22- capsule st (VITAMIN 00:00: 05:59 (50,000 Hospi ta D2) 50,000 00 :00 Units l unit total) by capsule mouth once a week. ergocalcife 2022-0 2023- No [id number] Q7D Take 1 M ethodi rol 2-08-[address] (VITAMIN 00:00: 05:59 (50,000 Hospi ta D2) 50,000 00 :00 Units l unit total) by capsule mouth once a week. ergocalcife 2022-0 2023- No [id number] Q7D Take 1 M ethodi rol 2-08-[address] (VITAMIN 00:00: 05:59 (50,000 Hospi ta D2) 50,000 00 :00 Units l unit total) by capsule mouth once a week. mycophenola 2023- No [id number] 500mg Q.5D Take 1 Methodi te 2-03 22- tablet st (CELLCEPT) 00:00: 05:59 (500 mg [facility] 500 mg 00 :00 total) by l tablet mouth 2 (two) times a day. mycophenola 2023- No [id number] 500mg Q.5D Take 1 Methodi te 2-03 22- tablet st (CELLCEPT) 00:00: 05:59 (500 mg [facility] 500 mg 00 :00 total) by l tablet mouth 2 (two) times a day. mycophenola 2023- No [id number] 500mg Q.5D Take 1 Methodi te 2-03 22- tablet st (CELLCEPT) 00:00: 05:59 (500 mg [facility] 500 mg 00 :00 total) by l tablet mouth 2 (two) times a day. mycophenola 2023- No [id number] 500mg Q.5D Take 1 Methodi te 2-03 22- tablet st (CELLCEPT) 00:00: 05:59 (500 mg [facility] 500 mg 00 :00 total) by l tablet mouth 2 (two) times a day. mycophenola 2022-0 3- No [id number] 500mg Q.5D Take 1 Methodi te 2-10 -[address] (CELLCEPT) 00:00: 00:00 (500 mg [facility] 500 mg 00 :00 total) by l tablet mouth 2 (two) times a day. mycophenola 2022-0 3- No [id number] 500mg Q.5D Take 1 Methodi te 2-10 -[address] (CELLCEPT) 00:00: 00:00 (500 mg [facility] 500 mg 00 :00 total) by l tablet mouth 2 (two) times a day. mycophenola 3-0 3- No [id number] 500mg Q.5D Take 1 Methodi te 2-03 22-[address] (CELLCEPT) 00:00: 00:00 (500 mg [facility] 500 mg 00 :00 total) by l tablet mouth 2 (two) times a day. mycophenola 3-0 3- No [id number] 500mg Q.5D Take 1 Methodi te 2-10 -[address] (CELLCEPT) 00:00: 00:00 (500 mg [facility] 500 mg 00 :00 total) by l tablet mouth 2 (two) times a day. mycophenola 3-0 3- No [id number] 500mg Q.5D Take 1 Methodi te 2-[address] (CELLCEPT) 00:00: 00:00 (500 mg [facility] 500 mg 00 :00 total) by l tablet mouth 2 (two) times a day. mycophenola 3-0 3- No [id number] 500mg Q.5D Take 1 Methodi te 2-01 20-[address] (CELLCEPT) 00:00: 00:00 (500 mg [facility] 500 mg 00 :00 total) by l tablet mouth 2 (two) times a day. mycophenola 2023-0 3- No [id number] 500mg Q.5D Take 1 Methodi te 2-01 20-[address] (CELLCEPT) 00:00: 00:00 (500 mg [facility] 500 mg 00 :00 total) by l tablet mouth 2 (two) times a day. mycophenola 2023-0 2023- No [id number] 500mg Q.5D Take 1 Methodi te 07-29-[address] (CELLCEPT) 00:00: 00:00 (500 mg [facility] 500 mg 00 :00 total) by l tablet mouth 2 (two) times a day. tacrolimus 2021-06- No [id number] 2mg Q.5D Take 2 Methodi (PROGRAF) 1 07-[address] MG capsule 00:00: 05:59 (2 mg Hospi ta 00 :00 total) by l mouth 2 (two) times a day. tacrolimus 2021-06- No [id number] 2mg Q.5D Take 2 Methodi (PROGRAF) 1 07-[address] MG capsule 00:00: 05:59 (2 mg Hospi ta 00 :00 total) by l mouth 2 (two) times a day. tacrolimus 2021-06- No [id number] 2mg Q.5D Take 2 [facility]i (PROGRAF) 1 07-[address] MG capsule 00:00: 05:59 (2 mg Hospi ta 00 :00 total) by l mouth 2 (two) times a day. tacrolimus 2021-06- No [id number] 2mg Q.5D Take 2 [facility]i (PROGRAF) 1 07-[address] MG capsule 00:00: 05:59 (2 mg Hospi ta 00 :00 total) by l mouth 2 (two) times a day. tacrolimus Yes [id number] Take 2 [facility]i (PROGRAF) 1 3-[address] MG capsule 00:00: (2 mg Hospit a 00 total) by l mouth every morning AND 1 capsule (1 mg total) every evening. tacrolimus Yes [id number] Take 2 [facility] (PROGRAF) 1 3-[address] MG capsule 00:00: (2 mg Hospit a 00 total) by l mouth every morning AND 1 capsule (1 mg total) every evening. tacrolimus Yes [id number] Take 2 [facility]i (PROGRAF) 1 3-[address] MG capsule 00:00: (2 mg Hospit a 00 total) by l mouth every morning AND 1 capsule (1 mg total) every evening. tacrolimus 2021- No [id number] Take 2 [facility]i (PROGRAF) 1 3-03 11-[address] MG capsule 00:00: 00:00 (2 mg Hospi ta 00 :00 total) by l mouth every morning AND 1 capsule (1 mg total) every evening. tacrolimus 2021- No [id number] Take 2 [facility]i (PROGRAF) 1 3-03 11-[address] MG capsule 00:00: 00:00 (2 mg Hospi ta 00 :00 total) by l mouth every morning AND 1 capsule (1 mg total) every evening. tacrolimus 2021- No [id number] Take 2 [facility]i (PROGRAF) 1 3-03 11-[address] MG capsule 00:00: 00:00 (2 mg Hospi ta 00 :00 total) by l mouth every morning AND 1 capsule (1 mg total) every evening. tacrolimus 2021- No [id number] Take 2 [facility]i (PROGRAF) 1 3- 11-[address] MG capsule 00:00: 00:00 (2 mg Hospi ta 00 :00 total) by l mouth every morning AND 1 capsule (1 mg total) every evening. ergocalcife 2022- No [id number] Q7D Take 1 M ethodi rol 2-[address] (VITAMIN 00:00: 00:00 (50,000 Hospi ta D2) 50,000 00 :00 Units l unit total) by capsule mouth once a week. ergocalcife 2021-0 2022- No [id number] Q7D Take 1 M ethodi rol 2-12 20-[address] (VITAMIN 00:00: 00:00 (50,000 Hospi ta D2) 50,000 00 :00 Units l unit total) by capsule mouth once a week. ergocalcife 2021-0 2022- No [id number] Q7D Take 1 M ethodi rol 2-12 20-[address] (VITAMIN 00:00: 00:00 (50,000 Hospi ta D2) 50,000 00 :00 Units l unit total) by capsule mouth once a week. ergocalcife 2021-0 2022- No [id number] Q7D Take 1 M ethodi rol 2-12 20-[address] (VITAMIN 00:00: 00:00 (50,000 Hospi ta D2) 50,000 00 :00 Units l unit total) by capsule mouth once a week. ergocalcife 2022-0 2023- No [id number] Q7D Take 1 M ethodi rol 2-12 20- capsule st (VITAMIN 00:00: 05:59 (50,000 Hospi ta D2) 50,000 00 :00 Units l unit total) by capsule mouth once a week. ergocalcife 2022-0 2023- No [id number] Q7D Take 1 M ethodi rol 2-12 20- capsule st (VITAMIN 00:00: 05:59 (50,000 Hospi ta D2) 50,000 00 :00 Units l unit total) by capsule mouth once a week. ergocalcife 2022-0 2023- No [id number] Q7D Take 1 M ethodi rol 207-[address] (VITAMIN 00:00: 05:59 (50,000 Hospi [...] A l tablet DAY acetaminoph 2020-06- No [id number] chronic M ethodi en-codeine -08-[address] (TYLENOL 00:00: 05:59 ONE TABLET Ho spita WITH 00 :00 BY MOUTH l CODEINE #3) THREE 300-30 mg TIMES A per tablet DAY FOR 10 DAYS acetaminoph 2020-06- [place] [id number] chronic M ethodi en-codeine -08-[address] (TYLENOL 00:00: 05:59 ONE TABLET Ho spita WITH 00 :00 BY MOUTH l CODEINE #3) THREE 300-30 mg TIMES A per tablet DAY FOR 10 DAYS acetaminoph 2020-06- No [id number] chronic M ethodi en-codeine -08-[address] (TYLENOL 00:00: 05:59 ONE TABLET Ho spita WITH 00 :00 BY MOUTH l CODEINE #3) THREE 300-30 mg TIMES A per tablet DAY FOR 10 DAYS acetaminoph 2020-06- [place] [id number] chronic M ethodi en-codeine -08-[address] (TYLENOL 00:00: 05:59 ONE TABLET Ho spita WITH 00 :00 BY MOUTH l CODEINE #3) THREE 300-30 mg TIMES A per tablet DAY FOR 10 DAYS casirivimab 2020-06- No [id number] 1200mg 1,200 mg, Univers 600 08-08 IV ity of mg-imdevima 20:00: 15:00 Infusion, [place] b 600 mg 00 :00 ONCE, Medical (REGEN-COV Administer Bra [facility] (EUA)) 1200 over 20 mg in [...] temperatur e. &nbs p;
tacrolimus 2023- No [id number] 2mg Q.5D Take 2 Methodi (PROGRAF) 1 03-[address] MG capsule 00:00: 04:59 (2 mg Hospi ta 00 :00 total) by l mouth 2 (two) times a day. tacrolimus 2021- No [id number] 2mg Q.5D Take 2 [facility]i (PROGRAF) 1 03-[address] MG capsule 00:00: 00:00 (2 mg Hospi ta 00 :00 total) by l mouth 2 (two) times a day. tacrolimus 2021- No [id number] 2mg Q.5D Take 2 [facility]i (PROGRAF) 1 03-[address] MG capsule 00:00: 00:00 (2 mg Hospi ta 00 :00 total) by l mouth 2 (two) times a day. tacrolimus 2021- No [id number] 2mg Q.5D Take 2 [facility] (PROGRAF) 1 03-[address] MG capsule 00:00: 00:00 (2 mg Hospi ta 00 :00 total) by l mouth 2 (two) times a day. tacrolimus 2020- No [id number] 2mg Q.5D Take 2 [facility] (PROGRAF) 1 03-[address] MG capsule 00:00: 00:00 (2 mg Hospi ta 00 :00 total) by l mouth 2 (two) times a day. tacrolimus 2020- No [id number] 2mg Q.5D Take 2 [facility] (PROGRAF) 1 03-[address] MG capsule 00:00: 00:00 (2 mg Hospi ta 00 :00 total) by l mouth 2 (two) times a day. mycophenola Yes [id number] 500mg Q.5D Take 1 Methodi te 02-[address] (CELLCEPT) 00:00: (500 [facility] 500 mg 00 total) by l tablet mouth 2 (two) times a day. mycophenola 0 Yes [id number] 500mg Q.5D Take 1 Methodi te 02-[address] (CELLCEPT) 00:00: (500 mg [facility] 500 mg 00 total) by l tablet mouth 2 (two) times a day. mycophenola 2020-0 Yes [id number] 500mg Q.5D Take 1 Methodi te 02-[address] (CELLCEPT) 00:00: (500 mg [facility] 500 mg 00 total) by l tablet mouth 2 (two) times a day. mycophenola 2022- No [id number] 500mg Q.5D Take 1 Methodi te 02-[address] (CELLCEPT) 00:00: 00:00 (500 mg [facility] 500 mg 00 :00 total) by l tablet mouth 2 (two) times a day. mycophenola 2022- No [id number] 500mg Q.5D Take 1 Methodi te 02-[address] (CELLCEPT) 00:00: 00:00 (500 mg [facility] 500 mg 00 :00 total) by l tablet mouth 2 (two) times a day. mycophenola 2022- No [id number] 500mg Q.5D Take 1 Methodi te 02-[address] (CELLCEPT) 00:00: 00:00 (500 mg [facility] 500 mg 00 :00 total) by l tablet mouth 2 (two) times a day. mycophenola 2022- No [id number] 500mg Q.5D Take 1 Methodi te 02-[address] (CELLCEPT) 00:00: 00:00 (500 mg [facility] 500 mg 00 :00 total) by l tablet mouth 2 (two) times a day. mycophenola 2021- No [id number] 500mg Q.5D Take 1 Methodi te 02-[address] (CELLCEPT) 00:00: 04:59 (500 mg [facility] 500 mg 00 :00 total) by l tablet mouth 2 (two) times a day. acetaminoph 2020- No Tylenol-Co Methodi en-codeine 6-15 06-15 deine #3 st (TYLENOL 13:04: 00:00 300 mg-30 [facility] WITH 50 :00 mg tablet l CODEINE #3) Take 1 300-30 mg tablet 3 per tablet times a day by oral route for 10 [place] [id number] chronic M ethodi en-codeine 6-06-[address] (TYLENOL 00:00: 00:00 Tylenol-Co Ho spita WITH 00 :00 deine #3 l CODEINE #3) 300 mg-30 300-30 mg mg tablet per tablet Take 1 tablet 3 times a day by oral route for 10 [place] [id number] chronic M ethodi en-codeine 12-[address] (TYLENOL 00:00: 00:00 Tylenol-Co Ho spita WITH 00 :00 deine #3 l CODEINE #3) 300 mg-30 300-30 mg mg tablet per tablet Take 1 tablet 3 times a day by oral route [place] 10 [place] [id number] chronic M ethodi en-codeine 12-[address] (TYLENOL 00:00: 00:00 Tylenol-Co Ho spita WITH 00 :00 deine #3 l CODEINE #3) 300 mg-30 300-30 mg mg tablet per tablet Take 1 tablet 3 times a day by oral route for 10 [place] [id number] chronic M ethodi en-codeine 15 06-[address] (TYLENOL 00:00: 00:00 Tylenol-Co Ho spita WITH 00 :00 deine #3 l CODEINE #3) 300 mg-30 300-30 mg mg tablet per tablet Take 1 tablet 3 times a day by oral route for 10 days. magnesium No 400mg Q.5D Take 1 Meth sebas oxide 11-[address] (MAG-OX) 00:00: 04:59 (400 mg Hospi ta 400 mg 00 :00 total) by l (241.3 mg mouth 2 magnesium) (two) tablet times a day. magnesium No 400mg Q.5D Take 1 Meth sebas oxide 6-03 26-[address] (MAG-OX) 00:00: 04:59 (400 mg Hospi ta 400 mg 00 :00 total) by l (241.3 mg mouth 2 magnesium) (two) tablet times a day. magnesium 2021- No 400mg Q.5D Take 1 Meth sebas oxide 6-10 -[address] (MAG-OX) 00:00: 04:59 (400 mg Hospi ta 400 mg 00 :00 total) by l (241.3 mg mouth 2 magnesium) (two) tablet times a day. magnesium 2021- No 400mg Q.5D Take 1 Meth sebas oxide 6-03 26-[address] (MAG-OX) 00:00: 04:59 (400 mg Hospi ta 400 mg 00 :00 total) by l (241.3 mg mouth 2 magnesium) (two) tablet times a day. gabapentin 2021- No 300mg Q.[id number] Take 1 [facility]i (NEURONTIN) 09-[id number] 300 mg 00:00: 04:59 3D (300 mg Hospita capsule 00 :00 total) by l mouth 3 (three) times a day. gabapentin 2021- No 300mg Q.[id number] Take 1 [facility] (NEURONTIN) 09-10- [id number] capsule st 300 mg 00:00: 04:59 3D (300 mg Hospita capsule 00 :00 total) by l mouth 3 (three) times a day. gabapentin 2021- No 300mg Q.[id number] Take 1 [facility] (NEURONTIN) 09-[id number] 300 mg 00:00: 04:59 3D (300 mg Hospita capsule 00 :00 total) by l mouth 3 (three) times a day. gabapentin 2021- No 300mg Q.[id number] Take 1 [facility] (NEURONTIN) 09-[id number] 300 mg 00:00: 04:59 3D (300 mg Hospita capsule 00 :00 total) by l mouth 3 (three) times a day. gabapentin 2020- No 300mg Q.[id number] Take 1 [facility] (NEURONTIN) 3-23 03-[id number] 300 mg 00:00: 00:00 3D (300 mg Hospita capsule 00 :00 total) by l mouth 3 (three) times a day. rosuvastati Yes [id number] 20mg QD Take 1 Methodi n (CRESTOR) 3-04 tablet (20 st 20 mg 00:00: mg total) Hospita tablet 00 by mouth l every evening. rosuvastati Yes [id number] 20mg QD Take 1 Methodi n (CRESTOR) 3-04 tablet (20 st 20 mg 00:00: mg total) Hospita tablet 00 by mouth l every evening. rosuvastati Yes [id number] 20mg QD Take 1 Methodi n (CRESTOR) 3-04 tablet (20 st 20 mg 00:00: mg total) Hospita tablet 00 by mouth l every evening. rosuvastati Yes [id number] 20mg QD Take 1 Methodi n (CRESTOR) 3-04 tablet (20 st 20 mg 00:00: mg total) Hospita tablet 00 by mouth l every evening. rosuvastati Yes [id number] 20mg QD Take 1 Methodi n (CRESTOR) 3-04 tablet (20 st 20 mg 00:00: mg total) Hospita tablet 00 by mouth l every evening. rosuvastati Yes [id number] 20mg QD Take 1 Methodi n (CRESTOR) 3-04 tablet (20 st 20 mg 00:00: mg total) Hospita tablet 00 by mouth l every evening. rosuvastati Yes [id number] 20mg QD Take 1 Methodi n (CRESTOR) 3-04 tablet (20 st 20 mg 00:00: mg total) Hospita tablet 00 by mouth l every evening. tacrolimus 2021- No [id number] .5mg Q.5D Take 1 [facility]i (PROGRAF) 3-04 03-[address] 0.5 MG 00:00: 05:59 (0.5 mg Hospita capsule 00 :00 total) by l mouth 2 (two) times a day. rosuvastati 2021- No [id number] 20mg QD Take 1 Methodi n (CRESTOR) 3- 03-05 tablet (20 s t 20 mg 00:00: 05:59 mg total) Hospit a tablet 00 :00 by mouth l every evening. tacrolimus 2021- No [id number] .5mg Q.5D Take 1 [facility]i (PROGRAF) 3- 03-[address] 0.5 MG 00:00: 00:00 (0.5 mg Hospita capsule 00 :00 total) by l mouth 2 (two) times a day. tacrolimus 2020-2021- No [id number] .5mg Q.5D Take 1 [facility]i (PROGRAF) 3- 03-[address] 0.5 MG 00:00: 00:00 (0.5 mg Hospita capsule 00 :00 total) by l mouth 2 (two) times a day. tacrolimus 2021- No [id number] .5mg Q.5D Take 1 [facility]i (PROGRAF) -09 21-[address] 0.5 MG 00:00: 00:00 (0.5 mg Hospita capsule 00 :00 total) by l mouth 2 (two) times a day. methocarbam 2020- No 500mg Q.25D Take 1 M ethodi oL 3- 12-[address] (Robaxin) 00:00: 00:00 (500 mg [facility] 500 MG 00 :00 total) by l tablet mouth 4 (four) times a day for 30 days. methocarbam 2020-2020- No 500mg Q.25D Take 1 M ethodi oL 3- 12-[address] (Robaxin) 00:00: 00:00 (500 mg [facility] 500 MG 00 :00 total) by l tablet mouth 4 (four) times a day for 30 days. methocarbam 0 2020- No 500mg Q.25D Take 1 M ethodi oL 3-04 12-[address] (Robaxin) 00:00: 00:00 (500 mg [facility] 500 MG 00 :00 total) by l tablet mouth 4 (four) times a day for 30 days. methocarbam 2020-2020- No 500mg Q.25D Take 1 M ethodi oL 3-04 12-[address] (Robaxin) 00:00: 00:00 (500 mg [facility] 500 MG 00 :00 total) by l tablet mouth 4 (four) times a day for 30 days. mycophenola 2020- No [id number] 500mg Q.5D Take 1 Methodi te 3-04 08-[address] (CELLCEPT) 00:00: 00:00 (500 mg [facility] 500 mg 00 :00 total) by l tablet mouth 2 (two) times a day. acetaminoph 2020- No [id number] 1{tbl} Q4H Take 1-2 Methodi en-codeine 3-04 03-[address] (TYLENOL 00:00: 04:59 mouth Hospita WITH 00 :00 every 4 l CODEINE #3) (four) 300-30 mg hours as per tablet needed for moderate pain for up to 20 days .acute pain, chronic pain. ergocalcife 2021- No [id number] Q7D Take 1 M ethodi rol 08-[address] (VITAMIN 00:00: 05:59 (50,000 Hospi ta D2) 50,000 00 :00 Units l unit total) by capsule mouth once a week. ergocalcife 2021- No [id number] Q7D Take 1 M ethodi rol -13 08- capsule st (VITAMIN 00:00: 00:00 (50,000 Hospi ta D2) 50,000 00 :00 Units l unit total) by capsule mouth once a week. ergocalcife 2021- No [id number] Q7D Take 1 M ethodi rol -13 08- capsule st (VITAMIN 00:00: 00:00 (50,000 Hospi ta D2) 50,000 00 :00 Units l unit total) by capsule mouth once a week. ergocalcife 2021- No [id number] Q7D Take 1 M ethodi rol 2-13 08- capsule st (VITAMIN 00:00: 00:00 (50,000 Hospi ta D2) 50,000 00 :00 Units l unit total) by capsule mouth once a week. bamlanivima 2020- No 700mg Univ ers b (EUA) 700 2- 02-13 ity of mg in NaCl 15:15: 16:20 [place] 0.9% (NS) 00 :00 Medical 270 mL Branch infusion bamlanivima 2020- No 700mg 700 mg, IV Univers b (EUA) 700 08-03 Infusion, it y of mg in NaCl 15:15: 16:20 [place]CE[place] 0.9[place] (NS) 00 :00 08/03/20 at [facility] 270 mL 0915, For Branch infusion 1 dose
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 traMADoL 2019-06 Yes [id number] 50mg Q4H Take 1 Method i (ULTRAM) 50 0-27 tablet (50 st mg tablet 00:00: mg total) [facility] 00 by mouth l every 4 (four) hours as needed for moderate pain for up to 30 days .chronic pain. traMADoL 2019-06- [place] [id number] 50mg Q4H Take 1 Metho di (ULTRAM) 50 0-27 03-03 tablet (50 s t mg tablet 00:00: 00:00 mg total) Ho spita 00 :00 by mouth l every 4 (four) hours as needed for moderate pain for up to 30 days .chronic pain. traMADoL 2019-06- [place] [id number] 50mg Q4H Take 1 Metho di (ULTRAM) 50 0-27 03-03 tablet (50 s t mg tablet 00:00: 00:00 mg total) Ho spita 00 :00 by mouth l every 4 (four) hours as needed for moderate pain for up to 30 days .chronic pain. traMADoL 2019-06- [place] [id number] 50mg Q4H Take 1 Metho di (ULTRAM) [...] 2 l (two) times a day. tacrolimus 2019-06- No 1mg Q.5D Take 1 [...] 750mg Q8H Take 1 Me thodi oL 407 03-[address] (Robaxin-75 00:00: 00:00 (750 [...] by mouth l every evening. ergocalcife No [id number] Q7D Take 1 M ethodi rol 208-[address] (VITAMIN 00:00: 00:00 (50,000 Hospi [...] Center MEQ tablet times daily. ergocalcife Yes [id number] Q7D Take [facility] (VITAMIN 14:11: Units by Medic al D2) 50,[address] unit a week. capsule levofloxaci Yes 750mg Q7D Take [address] n 4-20 mg by [facility] (LEVAQUIN) 14:11: mouth once M edical 750 MG 47 a week. Center tablet ergocalcife 2013-0 Yes [id number] Q7D Take [facility] 4-20 50,000 [...] MEQ tablet times daily. ergocalcife 2013-0 Yes [id number] Q7D Take [facility] 4-20 50,000 [...] MEQ tablet times daily. ergocalcife 2013-0 Yes [id number] Q7D Take [facility] 4-20 50,000 [...] [facility] st 00:00:00 Hospital Pneumococcal 2018-03-26 Completed [facility] Polysaccharide 00:00:00 Hospital FLUCELVAX QUAD PF 2018-03-[address] 00:00:00 Hospital Pneumococcal 2018-03-26 Completed [facility] Polysaccharide 00:00:00 Hospital FLUCELVAX QUAD PF 2018-03-[address] 00:00:00 Hospital Pneumococcal 2018-03-26 Completed [facility] Polysaccharide 00:00:00 Hospital FLUCELVAX QUAD PF 2018-03-[address] 00:00:00 Hospital Pneumococcal 2018-03-26 Completed [facility] Polysaccharide 00:00:00 Hospital FLUCELVAX QUAD PF Unknown Completed [facility] Pneumococcal Unknown Completed [facility] Polysaccharide [facility] FLUCELVAX QUAD PF Unknown Completed [facility] Pneumococcal Unknown [facility]pleted [facility]ysaccharide [facility] FLUCELVAX QUAD PF [facility] FLUCELVAX QUAD PF Unknown Completed [facility] Pneumococcal Unknown Completed [facility]accharide [facility] Vital Signs Vital Name Observation Time Observation Value Comments Source Systolic blood 2021-06-07 167 mm[Hg] [facility] of pressure 15:49:00 [facility] Diastolic blood 2021-06-07 83 mm[Hg] University o f pressure 15:49:00 [facility] Heart rate 2021-06-07 82 /min [facility] 15:49:00 [facility] Body temperature 2021-06-07 37.17 Michelle [facility] 15:49:00 [facility] Respiratory rate 2021-06-07 18 /min [facility] 15:49:00 [facility] Oxygen saturation 2021-06-07 96 /min [facility] in Arterial blood 15:49:00 [facility] by Pulse oximetry [place] Body height 2021-06-07 165.1 cm [facility] 14:27:00 [facility] Body weight 2021-06-07 97.523 kg [facility] 14:27:00 [facility] BMI 2021-06-07 35.78 kg/m2 [facility] 14:27:00 [facility] Systolic blood 2020-08-03 179 mm[Hg] [facility] pressure 17:15:00 [facility] Diastolic blood 2020-08-03 84 mm[Hg] University o f pressure 17:15:00 [facility] Heart rate 2020-08-03 104 /min University 17:15:00 [facility] Body temperature 2020-08-03 37 Michelle [facility] 17:15:00 [facility] Respiratory rate 2020-08-03 18 /min University 17:15:00 [facility] Oxygen saturation 2020-08-03 97 /min University in Arterial blood 17:15:00 [facility] by Pulse oximetry [place] Body height 2020-08-03 172.7 cm University 14:10:00 [facility] Body weight 2020-08-03 113.399 kg University 14:10:00 [facility] BMI 2020-08-03 38.01 kg/m2 University 14:10:00 [facility] Systolic blood 2022-07-09 156 mm[Hg] [facility] 19:43:00 [facility] Diastolic blood 2022-07-09 81 mm[Hg] [facility] 19:43:00 [facility] Heart rate 2022-07-09 83 /min [facility] 19:43:00 [facility] Body temperature 2022-07-09 36.67 Michelle [facility] 19:43:00 [facility] Respiratory rate 2022-07-09 17 /min [facility] 19:43:00 [facility] Body height 2022-07-09 172.7 cm [facility] 19:43:00 [facility] Body weight 2022-07-09 116.574 kg [facility] 19:43:00 [facility] BMI 2022-07-09 39.08 kg/m2 [facility] 19:43:00 [facility] Oxygen saturation 2022-07-09 94 /min [facility] in Arterial blood 19:43:00 [facility] by Pulse oximetry Systolic blood 2021-11-27 133 mm[Hg] [facility] 18:51:00 Hospital Diastolic blood 2021-11-27 65 mm[Hg] [facility] 18:51:00 Hospital Heart rate 2021-11-27 81 /min [facility] 18:51:00 [facility] Body temperature 2021-11-27 37.33 Michelle [facility] 18:51:00 Hospital Respiratory rate 2021-11-27 17 /min [facility] 18:51:00 [facility] Body height 2021-11-27 172.7 cm [facility] 18:51:00 [facility] Body weight 2021-11-27 110.451 kg [facility] 18:51:00 Hospital BMI 2021-11-27 37.02 kg/m2 [facility] 18:51:00 [facility] Oxygen saturation 2021-11-27 96 /min [facility] in Arterial blood 18:51:00 [facility] by Pulse oximetry Systolic blood 2021-04-03 161 mm[Hg] taken his bp [facility] 20:10:00 [facility] morning Diastolic blood 2021-04-03 77 mm[Hg] taken his bp [facility] 20:10:00 [facility] morning Heart rate 2021-04-03 73 /min [facility] 20:10:00 [facility] Body temperature 2021-04-03 36.22 Michelle [facility] 20:10:00 Hospital Respiratory rate 2021-04-03 16 /min [facility] 20:10:00 Hospital Body weight 2021-04-03 111.494 kg [facility] 20:10:00 Hospital BMI 2021-04-03 37.37 kg/m2 [facility] 20:10:00 Hospital Oxygen saturation 2021-04-03 97 /min [facility] in Arterial blood 20:10:00 [facility] by Pulse oximetry Body height 2020-08-22 172.7 cm [facility] 18:42:00 Hospital Procedures Procedure Date / Time Performing Clinician Source Performed MAGNESIUM LEVEL 2023-02-20 15:01[facility] 2023-02-20 15:01:00 Reynaldo Bah [facility] BASIC METABOLIC PANEL, 2023-02-20 15:01:00 Reynaldo Bah [facility] PLASMA CBC WITH PLATELET AND 2023-02-20 15:01:00 Reynaldo Bah [facility] DIFFERENTIAL ALPHA FETOPROTEIN 2023-02-20 15:01:00 Reynaldo Bah [facility] [id number] TACROLIMUS LEVEL, 2023-02-20 15:01:00 Reynaldo Bah [facility] RANDOM MAGNESIUM LEVEL 2022-10-26 15:34:00 Olvin [facility] HEPATIC FUNCTION PANEL 2022-10-26 15:34:00 Reynaldo Bah [facility] BASIC METABOLIC PANEL, 2022-10-26 15:34:00 Olvin [facility] PLASMA CBC WITH PLATELET AND 2022-10-26 15:34:00 Ankoma-Sey, [facility] DIFFERENTIAL ALPHA FETOPROTEIN 2022-10-26 15:34:00 [facility] [id number] TACROLIMUS LEVEL, 2022-10-26 15:34:00 [facility] RANDOM XR KNEE 4+ VW LEFT 2022-07-09 16:51:31 Aime Cortez [facility] MRI ABDOMEN W WO CONTRAST 2022-07-03 16:53:00 [facility] CT PELVIS W CONTRAST 2022-07-03 14:44:[address] [facility] [address] CHEST WO CONTRAST 2022-07-03 14:43:00 [facility] POC CREATININE 2022-07-03 13:56:00 [facility] ESTIMATED GFR 2022-07-03 13:56:00 [facility] CBC WITH PLATELET AND 2022-07-03 13:30:00 [facility] DIFFERENTIAL COMPREHENSIVE METABOLIC 2022-07-03 13:30:00 [facility] PANEL MAGNESIUM LEVEL 2022-07-03 13:30:00 [facility] HEMOGLOBIN A1C 2022-07-03 13:30:00 [facility] LIPID PANEL 2022-07-03 13:30:00 [facility] PARTIAL THROMBOPLASTIN 2022-07-03 13:30:00 [facility] TIME (PTT) PROTHROMBIN TIME WITH INR 2022-07-03 13:30:00 [facility] VITAMIN D 1,25 DIHYDROXY 2022-07-03 13:30:00 [facility] LEVEL, SERUM CYTOMEGALOVIRUS BY PCR 2022-07-03 13:30:00 [facility] VITAMIN D 25 HYDROXY LEVEL 2022-07-03 13:30:00 [facility] THYROID STIMULATING 2022-07-03 13:30:00 [facility] HORMONE URINE DRUGS OF ABUSE 2022-07-03 13:30:00 [facility] SCREEN GGT 2022-07-03 13:30:00 [facility], [facility] PROTEIN, URINE, RANDOM 2022-07-03 13:30:00 [facility], [facility] CREATININE LEVEL, URINE, 2022-07-03 13:30:00 [facility], [facility] RANDOM [id number] TACROLIMUS LEVEL, 2022-07-03 13:30:00 [facility], [facility] RANDOM HEPATOCELLULAR CARCINOMA 2022-07-03 13:30:00 [facility] MARKER PANEL PHOSPHATIDYLETHANOL, BLOOD 2022-07-03 13:30:[address] [facility] ESTIMATED GFR 2022-07-03 13:30:00 [facility] DONOR SPECIFIC ANTIBODY 2022-07-03 13:30:00 [facility] MAGNESIUM LEVEL 2022-04-22 13:32:00 [facility] HEPATIC FUNCTION PANEL 2022-04-22 13:32:00 [facility] BASIC METABOLIC PANEL, 2022-04-22 13:32:00 [facility] PLASMA PHOSPHATIDYLETHANOL, BLOOD 2022-04-22 13:32:00 TaylorLuis Miguel umaña [facility] PROTHROMBIN TIME WITH INR 2022-04-22 13:32:00 TaylorLuis Miguel umaña [facility] CBC WITH PLATELET AND 2022-04-22 13:32:00 [facility] DIFFERENTIAL [id number] TACROLIMUS LEVEL, 2022-04-22 13:32:00 [facility] RANDOM MAGNESIUM LEVEL 2021-11-25 13:46:00 [facility] HEPATIC FUNCTION PANEL 2021-11-25 13:46:00 [place], [facility] BASIC METABOLIC PANEL, 2021-11-25 13:46:00 [facility] PLASMA PHOSPHATIDYLETHANOL, BLOOD 2021-11-25 13:46:00 Luis Miguel Vazquez [facility] PROTHROMBIN TIME WITH INR 2021-11-25 13:46:00 Luis Miguel Vazquez Ma [facility] CBC WITH PLATELET AND 2021-11-25 13:46:00 Luis Miguel Vazquez [facility] DIFFERENTIAL [id number] TACROLIMUS LEVEL, 2021-11-25 13:46:00 [facility] RANDOM CT CHEST WO CONTRAST 2021-08-21 17:14:05 [facility] MRI ABDOMEN W WO CONTRAST 2021-08-21 16:25:00 [facility] COVID-19 ANTI-SPIKE IGG 2021-08-21 15:05:00 [place], [facility] ANTIBODY TITER HC COMPLETE BLD COUNT 2021-08-21 15:05:00 [facility] W/AUTO DIFF COMPREHENSIVE METABOLIC 2021-08-21 15:05:00 [facility] PANEL MAGNESIUM LEVEL 2021-08-21 15:05:00 [facility] HEMOGLOBIN A1C 2021-08-21 15:05:00 [facility] LIPID PANEL 2021-08-21 15:05:00 [facility] PARTIAL THROMBOPLASTIN 2021-08-21 15:05:00 [facility] TIME (PTT) PROTHROMBIN TIME WITH INR 2021-08-21 15:05:00 [facility] VITAMIN D 1,25 DIHYDROXY 2021-08-21 15:05:00 [facility] LEVEL, SERUM CYTOMEGALOVIRUS BY PCR 2021-08-21 15:05:00 [facility] VITAMIN D 25 HYDROXY LEVEL 2021-08-21 15:05[facility]00 [facility] THYROID STIMULATING 2021-08-21 15:05:00 [facility] HORMONE URINE DRUGS OF ABUSE 2021-08-21 15:05:00 [facility] SCREEN GGT 2021-08-21 15:05:00 [facility] PROTEIN, URINE, RANDOM 2021-08-21 15:05:00 [facility] CREATININE LEVEL, URINE, 2021-08-21 15:05:00 [facility] RANDOM [id number] TACROLIMUS LEVEL, 2021-08-21 15:05:00 [facility] RANDOM HEPATOCELLULAR CARCINOMA 2021-08-21 15:05:00 [facility] MARKER PANEL PHOSPHATIDYLETHANOL, BLOOD 2021-08-21 15:05:00 [place], [facility] ESTIMATED GFR 2021-08-21 15:05:00 [facility] DONOR SPECIFIC ANTIBODY 2021-08-21 15:05:00 [facility] CONSENT/REFUSAL FOR 2021-06-07 06:01:00 Doctor Unassigned, [facility] DIAGNOSIS AND TREATMENT [facility] [id number] TACROLIMUS LEVEL, 2021-04-01 13:21:00 [facility] RANDOM MAGNESIUM LEVEL 2021-04-01 13:21:00 [place], [facility] METABOLIC 2021-04-01 13:21:00 [place], [facility] PANEL PROTHROMBIN TIME WITH INR 2021-04-01 13:21:00 Luis Miguel Vazquez [facility] CBC WITH PLATELET AND 2021-04-01 13:21:00 [facility] DIFFERENTIAL MAGNESIUM LEVEL 2021-02-03 12:47:00 [place], [facility] METABOLIC 2021-02-03 12:47:00 [place], [facility] PANEL PHOSPHATIDYLETHANOL, BLOOD 2021-02-03 12:47:00 [place], [facility] PROTHROMBIN TIME WITH INR 2021-02-03 12:47:00 TaylorLuis Miguel salcido [facility] CBC WITH PLATELET AND 2021-02-03 12:47:00 TaylorLuis Miguel umaña [facility] DIFFERENTIAL [id number] TACROLIMUS LEVEL, 2021-02-03 12:47:00 [place], [facility] RANDOM MAGNESIUM LEVEL 2020-12-25 12:41:00 [place], [facility] 2020-12-25 12:41:00 [place], [facility] PANEL PHOSPHATIDYLETHANOL, BLOOD 2020-12-25 12:41:00 [place], [facility] PROTHROMBIN TIME WITH INR 2020-12-25 12:41:00 [facility] CBC WITH PLATELET AND 2020-12-25 12:41:00 [place], [facility] DIFFERENTIAL [id number] TACROLIMUS LEVEL, 2020-12-25 12:41:00 [place], [facility] RANDOM MAGNESIUM LEVEL 2020-10-31 12:39:00 [facility], [facility] 2020-10-31 12:39:00 [place], [facility] PANEL PHOSPHATIDYLETHANOL, BLOOD 2020-10-31 12:39:00 [place], [facility] PROTHROMBIN TIME WITH INR 2020-10-31 12:39:00 [place], [facility] CBC WITH PLATELET AND 2020-10-31 12:39:00 [facility] DIFFERENTIAL [id number] TACROLIMUS LEVEL, 2020-10-31 12:39:00 [facility] RANDOM MAGNESIUM LEVEL 2020-09-30 13:40:00 [place], [facility] 2020-09-30 13:40:00 [place], [facility] PANEL PHOSPHATIDYLETHANOL, BLOOD 2020-09-30 13:40:00 [facility] PROTHROMBIN TIME WITH INR 2020-09-30 13:40:00 [place], [facility] CBC WITH PLATELET AND 2020-09-30 13:40:00 [facility] DIFFERENTIAL [id number] TACROLIMUS LEVEL, 2020-09-30 13:40:00 TaylorLuis Miguel [facility] RANDOM MRI PELVIS WO CONTRAST 2020-09-06 17:10:00 Jamarcus Phillips [facility] MRI LUMBAR SPINE WO 2020-09-06 16:23:00 Jamarcus Phillips [facility] CONTRAST REFERRAL- REQUEST/RESPONSE 2020-08-01 06:01:00 Doctor Unassigned , [facility] Plan of Care Planned Activity Planned Date Details Comments Source Future Scheduled 2023-04-09 Screening for [facility] Test 00:51:51 malignant neoplasm of colon (procedure) [code = 273004965] Future Scheduled 2023-04-09 Screening for [facility] Test 00:51:51 malignant neoplasm of colon (procedure) [code = 383297605] Future Scheduled 2023-04-09 Screening for [facility] Test 00:51:51 malignant neoplasm of colon (procedure) [code = 319874657] Future Scheduled 2023-04-09 COVID-19 VACCINE (#1) [facility] Test 00:51:51 [code = COVID-19 VACCINE (#1)] Future Scheduled 2023-04-09 SHINGLES VACCINES (1 Met [facility] Test 00:51:51 of 2) [code = SHINGLES VACCINES (1 of 2)] Future Scheduled 2023-04-09 Screening for [facility] Test 00:51:51 malignant neoplasm of colon (procedure) [code = 327493968] Future Scheduled 2023-04-09 Screening for [facility] Test 00:51:51 malignant neoplasm of colon (procedure) [code = 448166916] Future Scheduled 2023-04-09 Pneumococcal Vaccine: [facility] Test 00:51:51 Pediatrics (0 to 5 Years) and At-Risk Patients (6 to 64 Years) (2 - PCV) [code = Pneumococcal Vaccine: Pediatrics (0 to 5 Years) and At-Risk Patients (6 to 64 Years) (2 - PCV)] Future Scheduled 2023-04-09 HEPATITIS B VACCINES Met [facility] Test 00:51:51 (1 of 3 - Risk 3-dose series) [code = HEPATITIS B VACCINES (1 of 3 - Risk 3-dose series)] Future Scheduled 2023-04-09 RSV VACCINES > 60 YR Met [facility] Test 00:51:51 (1 - 1-dose 60+ series) [code = RSV VACCINES > 60 YR (1 - 1-dose 60+ series)] Future Scheduled 2023-04-09 INFLUENZA VACCINE (#1) [facility] Test 00:51:51 [code = INFLUENZA VACCINE (#1)] Future Scheduled 2023-04-09 Screening for [facility] Test 00:51:51 malignant neoplasm of colon (procedure) [code = 306114542] Future Scheduled 2023-04-09 Screening for [facility] Test 00:51:51 malignant neoplasm of colon (procedure) [code = 996502420] Future Scheduled 2023-04-09 Screening for [facility] Test 00:51:51 malignant neoplasm of colon (procedure) [code = 645246024] Future Scheduled 2023-04-09 COVID-19 VACCINE (#1) [facility] Test 00:51:51 [code = COVID-19 VACCINE (#1)] Future Scheduled 2023-04-09 SHINGLES VACCINES (1 Met [facility] Test 00:51:51 of 2) [code = SHINGLES VACCINES (1 of 2)] Future Scheduled 2023-04-09 Screening for [facility] Test 00:51:51 malignant neoplasm of colon (procedure) [code = 552128061] Future Scheduled 2023-04-09 Screening for [facility] Test 00:51:51 malignant neoplasm of colon (procedure) [code = 531557637] Future Scheduled 2023-04-09 Pneumococcal Vaccine: [facility] Test 00:51:51 Pediatrics (0 to 5 Years) and At-Risk Patients (6 to 64 Years) (2 - PCV) [code = Pneumococcal Vaccine: Pediatrics (0 to 5 Years) and At-Risk Patients (6 to 64 Years) (2 - PCV)] Future Scheduled 2023-04-09 HEPATITIS B VACCINES Met [facility] Test 00:51:51 (1 of 3 - Risk 3-dose series) [code = HEPATITIS B VACCINES (1 of 3 - Risk 3-dose series)] Future Scheduled 2023-04-09 RSV VACCINES > 60 YR Met [facility] Test 00:51:51 (1 - 1-dose 60+ series) [code = RSV VACCINES > 60 YR (1 - 1-dose 60+ series)] Future Scheduled 2023-04-09 INFLUENZA VACCINE (#1) [facility] Test 00:51:51 [code = INFLUENZA VACCINE (#1)] Future Scheduled 2023-04-01 Screening for [facility] Test 15:38:20 malignant neoplasm of colon (procedure) [code = 434807053] Future Scheduled 2023-04-01 Screening for [facility] Test 15:38:20 malignant neoplasm of colon (procedure) [code = 193676588] Future Scheduled 2023-04-01 Screening for [facility] Test 15:38:20 malignant neoplasm of colon (procedure) [code = 455712718] Future Scheduled 2023-04-01 COVID-19 VACCINE (#1) [facility] Test 15:38:20 [code = COVID-19 VACCINE (#1)] Future Scheduled 2023-04-01 SHINGLES VACCINES (1 Met [facility] Test 15:38:20 of 2) [code = SHINGLES VACCINES (1 of 2)] Future Scheduled 2023-04-01 Screening for [facility] Test 15:38:20 malignant neoplasm of colon (procedure) [code = 150015087] Future Scheduled 2023-04-01 Screening for [facility] Test 15:38:20 malignant neoplasm of colon (procedure) [code = 487492477] Future Scheduled 2023-04-01 Pneumococcal Vaccine: [facility] Test 15:38:20 Pediatrics (0 to 5 Years) and At-Risk Patients (6 to 64 Years) (2 - PCV) [code = Pneumococcal Vaccine: Pediatrics (0 to 5 Years) and At-Risk Patients (6 to 64 Years) (2 - PCV)] Future Scheduled 2023-04-01 HEPATITIS B VACCINES Met [facility] Test 15:38:20 (1 of 3 - Risk 3-dose series) [code = HEPATITIS B VACCINES (1 of 3 - Risk 3-dose series)] Future Scheduled 2023-04-01 RSV VACCINES > 60 YR Met [facility] Test 15:38:20 (1 - 1-dose 60+ series) [code = RSV VACCINES > 60 YR (1 - 1-dose 60+ series)] Future Scheduled 2023-04-01 INFLUENZA VACCINE (#1) [facility] Test 15:38:20 [code = INFLUENZA VACCINE (#1)] Future Scheduled 2023-03-28 Screening for [facility] Test 05:41:02 malignant neoplasm of colon (procedure) [code = 987208615] Future Scheduled 2023-03-28 Screening for [facility] Test 05:41:02 malignant neoplasm of colon (procedure) [code = 186336332] Future Scheduled 2023-03-28 Screening for [facility] Test 05:41:02 malignant neoplasm of colon (procedure) [code = 470216167] Future Scheduled 2023-03-28 COVID-19 VACCINE (#1) [facility] Test 05:41:02 [code = COVID-19 VACCINE (#1)] Future Scheduled 2023-03-28 SHINGLES VACCINES (1 Met [facility] Test 05:41:02 of 2) [code = SHINGLES VACCINES (1 of 2)] Future Scheduled 2023-03-28 Screening for [facility] Test 05:41:02 malignant neoplasm of colon (procedure) [code = 776063426] Future Scheduled 2023-03-28 Screening for [facility] Test 05:41:02 malignant neoplasm of colon (procedure) [code = 421123210] Future Scheduled 2023-03-28 Pneumococcal Vaccine: [facility] Test 05:41:02 Pediatrics (0 to 5 Years) and At-Risk Patients (6 to 64 Years) (2 - PCV) [code = Pneumococcal Vaccine: Pediatrics (0 to 5 Years) and At-Risk Patients (6 to 64 Years) (2 - PCV)] Future Scheduled 2023-03-28 HEPATITIS B VACCINES Met [facility] Test 05:41:02 (1 of 3 - Risk 3-dose series) [code = HEPATITIS B VACCINES (1 of 3 - Risk 3-dose series)] Future Scheduled 2023-03-28 INFLUENZA VACCINE (#1) [facility] Test 05:41:02 [code = INFLUENZA VACCINE (#1)] Future Scheduled 2022-03-25 HEPATITIS B VACCINES Met [facility] Test 18:55:02 (1 of 3 - 3-dose series) [code = HEPATITIS B VACCINES (1 of 3 - 3-dose series)] Future Scheduled 2022-03-25 COVID-19 VACCINE (#1) [facility] Test 18:55:02 [code = COVID-19 VACCINE (#1)] Future Scheduled 2022-03-25 SHINGLES VACCINES (1 Met [facility] Test 18:55:02 of 2) [code = SHINGLES VACCINES (1 of 2)] Future Scheduled 2022-03-25 COLONOSCOPY SCREENING [facility] Test 18:55:02 [code = COLONOSCOPY SCREENING] Future Scheduled 2022-03-25 Pneumococcal Vaccine: [facility] Test 18:55:02 Pediatrics (0 to 5 Years) and At-Risk Patients (6 to 64 Years) (2 - PCV) [code = Pneumococcal Vaccine: Pediatrics (0 to 5 Years) and At-Risk Patients (6 to 64 Years) (2 - PCV)] Future Scheduled 2022-03-25 INFLUENZA VACCINE Method [facility] Test 18:55:02 [code = INFLUENZA VACCINE] Future Scheduled 2022-03-20 HEPATITIS B VACCINES Met [facility] Test 03:06:19 (1 of 3 - 3-dose series) [code = HEPATITIS B VACCINES (1 of 3 - 3-dose series)] Future Scheduled 2022-03-20 COVID-19 VACCINE (#1) [facility] Test 03:06:19 [code = COVID-19 VACCINE (#1)] Future Scheduled 2022-03-20 SHINGLES VACCINES (1 Met [facility] Test 03:06:19 of 2) [code = SHINGLES VACCINES (1 of 2)] Future Scheduled 2022-03-20 COLONOSCOPY SCREENING [facility] Test 03:06:19 [code = COLONOSCOPY SCREENING] Future Scheduled 2022-03-20 Pneumococcal Vaccine: [facility] Test 03:06:19 Pediatrics (0 to 5 Years) and At-Risk Patients (6 to 64 Years) (2 - PCV) [code = Pneumococcal Vaccine: Pediatrics (0 to 5 Years) and At-Risk Patients (6 to 64 Years) (2 - PCV)] Future Scheduled 2022-03-20 INFLUENZA VACCINE Method [facility] Test 03:06:19 [code = INFLUENZA VACCINE] Future Scheduled 2022-02-18 HEPATITIS B VACCINES Met [facility] Test 12:28:16 (1 of 3 - 3-dose series) [code = HEPATITIS B VACCINES (1 of 3 - 3-dose series)] Future Scheduled 2022-02-18 COVID-19 VACCINE (#1) [facility] Test 12:28:16 [code = COVID-19 VACCINE (#1)] Future Scheduled 2022-02-18 SHINGLES VACCINES (1 Met [facility] Test 12:28:16 of 2) [code = SHINGLES VACCINES (1 of 2)] Future Scheduled 2022-02-18 COLONOSCOPY SCREENING [facility] Test 12:28:16 [code = COLONOSCOPY SCREENING] Future Scheduled 2022-02-18 Pneumococcal Vaccine: [facility] Test 12:28:16 Pediatrics (0 to 5 Years) and At-Risk Patients (6 to 64 Years) (2 - PCV) [code = Pneumococcal Vaccine: Pediatrics (0 to 5 Years) and At-Risk Patients (6 to 64 Years) (2 - PCV)] Future Scheduled 2022-02-18 INFLUENZA VACCINE Method [facility] Test 12:28:16 [code = INFLUENZA VACCINE] Future Scheduled 2021-07-22 COVID-19 VACCINE (1) Met [facility] Test 06:14:35 [code = COVID-19 VACCINE (1)] Future Scheduled 2021-07-22 COLONOSCOPY SCREENING [facility] Test 06:14:35 [code = COLONOSCOPY SCREENING] Future Scheduled 2021-07-22 SHINGLES VACCINES (#1) [facility] Test 06:14:35 [code = SHINGLES VACCINES (#1)] Future Scheduled 2021-07-22 INFLUENZA VACCINE Method [facility] Test 06:14:35 [code = INFLUENZA VACCINE] Encounters Start End Encounter Admission Attending Care Care Encounter Source Date/Time Date/Time Type Type [facility]icians Facility Department ID 2023-04-09 [facility] [id number] [facility] 00:00:00 Encounter [facility] 2023-02-26 2023-02-26 Orders Ping, 1.2.840.1 [id number] 954690 0828 Methodi 00:00:00 00:00:00 Only Loideth 92023.1.[address] 3.430.2.7 Hospit a .3.721256 l .8 2023-02-26 2023-02-26 Orders Ping, 1.2.840.1 [id number] 709333 1652 Methodi 00:00:00 00:00:00 Only Loideth 33692.1.[address] 3.430.2.7 Hospit a .3.556917 l .8 2023-02-20 2023-02-20 Orders Ankoma-Sey, 1.2.840.1 [id number] 64291970 Methodi 00:00:00 00:00:00 Only Reynaldo 48091.1.[address] 3.430.2.7 Hospit a .3.679859 l .8 2023-02-20 2023-02-20 Orders Ankoma-Sey, 1.2.840.1 907223432 21247284 Methodi 00:00:00 00:00:00 Only Reynaldo 75571.1.[address] 3.430.2.7 Hospit a .3.649221 l .8 2023-02-15 2023-02-15 Orders Ping, 1.2.840.1 704366663 667274 5122 Methodi 00:00:00 00:00:00 Only Roland 77379.1.[address] 3.430.2.7 Hospit a .3.231668 l .8 2023-02-15 2023-02-15 Orders Ping, 1.2.840.1 248299052 938018 8946 Methodi 00:00:00 00:00:00 Only Claireth 86386.1.[address] 3.430.2.7 Hospit a .3.475006 l .8 2023-01-26 2023-01-26 Orders Clayton, 1.2.840.1 409446019 830347 6861 Methodi 00:00:00 00:00:00 Only Lauryn 82916.1.1 261 s t 3.430.2.7 Hospit a .3.725524 l .8 2023-01-26 2023-01-26 Orders Clayton, 1.2.840.1 350325304 800770 1115 Methodi 00:00:00 00:00:00 Only Lauryn 15044.1.1 127 s t 3.430.2.7 Hospit a .3.224237 l .8 2023-01-26 2023-01-26 Orders Clayton, 1.2.840.1 404339246 847025 8451 Methodi 00:00:00 00:00:00 Only Lauryn 51588.1.1 261 s t 3.430.2.7 Hospit a .3.008270 l .8 2023-01-26 2023-01-26 Orders Clayton, 1.2.840.1 547512513 390907 7714 Methodi 00:00:00 00:00:00 Only Lauryn 40969.1.1 127 s t 3.430.2.7 Hospit a .3.406410 l .8 2023-01-18 2023-01-18 Documentat Abdjosefa, 1.2.840.1 [id number] [id number] Methodi 00:00:00 00:00:[address]753.1.[address] 3.430.2.7 Hospit a .3.826939 l .8 2023-01-18 2023-01-18 Documentat Tonja, 1.2.840.1 753240279 [id number] Methodi 00:00:00 00:00:[address]1352.1.[address] 3.430.2.7 Hospit a .3.209153 l .8 2023-01-15 2023-01-15 Oncology Laisha Torres 1.2.840.1 [id number] 21 [id number] Methodi 00:00:00 00:00:00 Survivorsh 03517.1.1 132 s t ip 3.430.2.7 Hospit a .3.908307 l .8 2023-01-15 2023-01-15 Social Darwin, 1.2.840.1 663814857 60340 24151 Methodi 00:00:00 00:00:00 Work Ashely 15908.1.[address] 3.430.2.7 Hospit a .3.028429 l .8 2023-01-15 2023-01-15 Oncology Laisha Torres 1.2.840.1 985981466 13306543 Methodi 00:00:00 00:00:00 Survivorsh 60496.1.1 132 s t ip 3.430.2.7 Hospit a .3.641107 l .8 2023-01-15 2023-01-15 Social Darwin, 1.2.840.1 348254160 44064 84149 Methodi 00:00:00 00:00:00 Work Ashely 50161.1.[address] 3.430.2.7 Hospit a .3.733588 l .8 2023-01-14 2023-01-14 Oncology Laisha Torres 1.2.840.1 567134003 69738513 Methodi 00:00:00 00:00:00 Survivorsh 33720.1.1 600 s t ip 3.430.2.7 Hospit a .3.586756 l .8 2023-01-14 2023-01-14 Orders Nurse, 1.2.840.1 [id number] 008311 4727 Methodi 00:00:00 00:00:00 Only Mari 38499.1.[address] 3.430.2.7 Hospit a .3.032218 l .8 2023-01-14 2023-01-14 Telephone Tonja, 1.2.840.1 [id number] Methodi 00:00:00 00:00:[address] 3.430.2.7 Hospit a .3.682224 l .8 2023-01-14 2023-01-14 Oncology Laisha Torres 1.2.840.1 221313852 25942513 Methodi 00:00:00 00:00:00 Survivorsh 89590.1.1 600 s t ip 3.430.2.7 Hospit a .3.835476 l .8 2023-01-14 2023-01-14 Orders Nurse, 1.2.840.1 [id number] 269835 1104 Methodi 00:00:00 00:00:00 Only Mari 05847.1.[address] 3.430.2.7 Hospit a .3.293811 l .8 2023-01-14 2023-01-14 Telephone Tonja, 1.2.840.1 [id number] Methodi 00:00:00 00:00:[address] 3.430.2.7 Hospit a .3.766379 l .8 2022-10-26 2022-10-26 Orders Rigo-Yusuf, 1.2.840.1 270170726 03139116 Methodi 00:00:00 00:00:00 Only Reynaldo 93775.1.[address] 3.430.2.7 Hospit a .3.073860 l .8 2022-10-26 2022-10-26 Orders Rigo-Sey, 1.2.840.1 361748526 97475657 Methodi 00:00:00 00:00:00 Only Reynaldo 43575.1.[address] 3.430.2.7 Hospit a .3.289411 l .8 2022-09-18 2022-09-18 Orders Clayton, 1.2.840.1 667274607 548114 1670 Methodi 00:00:00 00:00:00 Only Lauryn 23205.1.1 572 s t 3.430.2.7 Hospit a .3.272193 l .8 2022-09-18 2022-09-18 Orders Clayton, 1.2.840.1 393976061 724348 2461 Methodi 00:00:00 00:00:00 Only Lauryn 69642.1.1 572 s t 3.430.2.7 Hospit a .3.787435 l .8 2022-08-28 2022-08-28 Telephone Garland, 1.2.840.1 [id number] 21 [id number] Methodi 00:00:00 00:00:[address] 3.430.2.7 Hospit a .3.578589 l .8 2022-08-28 2022-08-28 Telephone Garland, 1.2.840.1 010800618 29293440 Methodi 00:00:00 00:00:[address] 3.430.2.7 Hospit a .3.565665 l .8 2022-08-19 2022-08-19 Orders Clayton, 1.2.840.1 221127085 509001 0178 Methodi 00:00:00 00:00:00 Only Lauryn 77808.1.1 539 s t 3.430.2.7 Hospit a .3.103426 l .8 2022-08-19 2022-08-19 Orders Clayton, 1.2.840.1 422773355 429115 3171 Methodi 00:00:00 00:00:00 Only Lauryn 79209.1.1 539 s t 3.430.2.7 Hospit a .3.118185 l .8 2022-08-18 2022-08-18 [facility] 1.2.840.1 [id number] 21 [id number] Methodi 14:00:00 15:00:00 [address] Ton[address] 22057.1.[address] 3.430.2.7 Hospit a .3.153877 l .8 2022-08-18 2022-08-18 [facility], 1.2.840.1 [id number] 21 25833290 Methodi 14:00:00 15:00:00 Visit Tonie 19139.1.[address] 3.430.2.7 Hospit a .3.853813 l .8 2022-08-18 2022-08-18 Oncology Laisha Torres 1.2.840.1 [id number] 09574961 Methodi 00:00:00 00:00:00 [facility] 16880.1.1 422 s t ip 3.430.2.7 Hospit a .3.947062 l .8 2022-08-18 2022-08-18 Travel 1.2.840.1 1.2.186.720 5981 622566 Methodi 00:00:00 00:00:[address] 3.430.2.7 0.2.7.3.698 Ho spita .3.355273 084.8 l .8 2022-08-18 2022-08-18 Oncology Laisha Torres 1.2.840.1 [id number] 21 [id number] Methodi 00:00:00 00:00:00 [facility] 20836.1.1 422 s t ip 3.430.2.7 Hospit a .3.939734 l .8 2022-08-18 2022-08-18 Travel 1.2.840.1 1.2.726.604 8372 638566 Methodi 00:00:00 00:00:[address] 3.430.2.7 0.2.7.3.698 Ho spita .3.092819 084.8 l .8 2022-08-05 2022-08-05 [facility], 1.2.840.1 [id number] Methodi 00:00:00 00:00:[address] 3.430.2.7 Hospit a .3.948317 l .8 2022-08-05 2022-08-05 [facility], 1.2.840.1 [id number] Methodi 00:00:00 00:00:[address] 3.430.2.7 Hospit a .3.040248 l .8 2022-07-31 2022-07-31 Refill Ping, 1.2.840.1 200925414 879739 3427 Methodi 00:00:00 00:00:[address] 3.430.2.7 Hospit a .3.000510 l .8 2022-07-31 2022-07-31 Refill Ping, 1.2.840.1 811237976 704929 8817 Methodi 00:00:00 00:00:[address] 3.430.2.7 Hospit a .3.358521 l .8 2022-07-31 2022-07-31 Refill Ping, 1.2.840.1 246834191 055854 2339 Methodi 00:00:00 00:00:[address] 3.430.2.7 Hospit a .3.142665 l .8 2022-07-31 2022-07-31 Refill Ping, 1.2.840.1 604187551 818732 9693 Methodi 00:00:00 00:00:[address] 3.430.2.7 Hospit a .3.535187 l .8 2022-07-29 2022-07-29 Refill Ping, 1.2.840.1 738173314 444064 1306 Methodi 00:00:00 00:00:[address] 3.430.2.7 Hospit a .3.809467 l .8 2022-07-29 2022-07-29 Refill Ping, 1.2.840.1 452865832 932615 6013 Methodi 00:00:00 00:00:[address] 3.430.2.7 Hospit a .3.718408 l .8 2022-07-17 2022-07-17 Tele[facility], 1.2.840.1 [id number] Methodi 00:00:00 00:00:[address] 3.430.2.7 Hospit a .3.139846 l .8 2022-07-17 2022-07-17 Telephone Abdherahim, 1.2.840.1 [id number] Methodi 00:00:00 00:00:[address] 3.430.2.7 Hospit a .3.795618 l .8 2022-07-09 2022-07-09 Office Olvin, 1.2.840.1 [id number] 21 79869197 Methodi 15:00:00 15:15:00 Visit Reynaldo 06193.1.[address] 3.430.2.7 Hospit a .3.746816 l .8 2022-07-09 2022-07-09 Office Olvin, 1.2.840.1 602583104 21 15162194 Methodi 15:00:00 15:15:00 Visit Reynaldo 91881.1.[address] 3.430.2.7 Hospit a .3.312704 l .8 2022-07-09 2022-07-09 Office Diego, 1.2.840.1 [id number] 21 84290930 Methodi 10:45:00 11:59:34 Visit Aime Case 65804.1.[address] 3.430.2.7 Hospit a .3.478918 l .8 2022-07-09 2022-07-09 Office Diego, 1.2.840.1 [id number] 21 05299862 Methodi 10:45:00 11:59:34 Visit Aime AbdielNevin 69264.1.[address] 3.430.2.7 Hospit a .3.241176 l .8 2022-07-09 2022-07-09 Travel 1.2.840.1 1.2.159.770 8498 710944 Methodi 00:00:00 00:00:[address] 3.430.2.7 0.2.7.3.698 Ho spita .3.866044 084.8 l .8 2022-07-09 2022-07-09 [facility]26 [id number] [place] 00:00:00 00:00:00 AIME 95Reba Method i st 2022-07-09 2022-07-09 Travel 1.2.840.1 1.2.414.793 9088 161585 Methodi 00:00:00 00:00:[address] 3.430.2.7 0.2.7.3.698 Ho spita .3.082148 084.8 l .8 2022-07-06 2022-07-06 Travel 1.2.840.1 1.2.565.157 9843 434419 Methodi 00:00:00 00:00:[address] 3.430.2.7 0.2.7.3.698 Ho spita .3.885275 084.8 l .8 2022-07-06 2022-07-06 Travel 1.2.840.1 1.2.274.609 4639 785247 Methodi 00:00:00 00:00:[address] 3.430.2.7 0.2.7.3.698 Ho spita .3.405975 084.8 l .8 2022-07-03 2022-07-03 [facility], 1.2.840.1 [id number] 2 [id number] Methodi 09:00:23 23:59:00 Encounter Reynaldo 49412.1.[address] 3.430.2.7 Hospit a .3.488753 l .8 2022-07-03 2022-07-03 [facility], 1.2.840.1 [id number] 2 [id number] Methodi 09:00:23 23:59:00 Encounter Reynaldo 70571.1.[address] 3.430.2.7 Hospit a .3.997364 l .8 2022-07-03 2022-07-03 [facility], 1.2.840.1 [id number] 2 [id number] Methodi 07:43:41 08:59:00 Encounter Reynaldo 55873.1.[address] 3.430.2.7 Hospit a .3.486151 l .8 2022-07-03 2022-07-03 [facility], 1.2.840.1 [id number] 2 [id number] Methodi 07:43:41 08:59:00 Encounter Reynaldo 83557.1.[address] 3.430.2.7 Hospit a .3.054112 l .8 2022-07-03 2022-07-03 [facility], 1.2.840.1 [id number] 2 [id number] Methodi 07:43:13 08:59:00 Encounter Reynaldo [address]7700.1.[address] 3.430.2.7 Hospit a .3.289758 l .8 2022-07-03 2022-07-03 [facility], 1.2.840.1 [id number] 2 [id number] Methodi 07:43:13 08:59:00 Suzanne Jacobs 65158.1.[address] 3.430.2.7 Hospit a .3.190944 l .8 2022-07-03 2022-07-03 Travel 1.2.840.1 1.2.276.615 4752 714333 Methodi 00:00:00 00:00:[address] 3.430.2.7 0.2.7.3.698 Ho spita .3.465652 084.8 l .8 2022-07-03 2022-07-03 [facility] 04011 66029 [place] 00:00:00 00:00:[address] SHE[address]MA[address] 2022-07-03 2022-07-03 Travel 1.2.840.1 1.2.280.166 9678 928697 Methodi 00:00:00 00:00:[address] 3.430.2.7 0.2.7.3.698 Ho spita .3.398656 084.8 l .8 2022-06-29 2022-06-29 Millieat Arnol, 1.2.840.1 266097242 897 1912366 Methodi 00:00:00 00:00:00 ion Stephanie 24644.1.[address] 3.430.2.7 Hospit a .3.524769 l .8 2022-06-29 2022-06-29 Documentat Arnol, 1.2.840.1 [id number] 959 7508573 Methodi 00:00:00 00:00:00 ion Stephanie 12467.1.[address] 3.430.2.7 Hospit a .3.926766 l .8 2022-05-29 2022-05-29 Karen Feng, 1.2.840.1 983307121 919656 4696 Methodi 00:00:00 00:00:00 Only Loideth 76719.1.[address] 3.430.2.7 Hospit a .3.617738 l .8 2022-05-29 2022-05-29 Orders Ping, 1.2.840.1 818968832 494542 1464 Methodi 00:00:00 00:00:00 Only Loideth 74168.1.[address] 3.430.2.7 Hospit a .3.726095 l .8 2022-05-11 2022-05-11 Refill Ping, 1.2.840.1 875790788 269232 2707 Methodi 00:00:00 00:00:[address] 3.430.2.7 Hospit a .3.151885 l .8 2022-05-11 2022-05-11 Refill Ping, 1.2.840.1 391658674 207794 9994 Methodi 00:00:00 00:00:[address] 3.430.2.7 Hospit a .3.755124 l .8 2022-04-22 2022-04-22 Orders Taylor, 1.2.840.7 9136695630 426 5290189 Methodi 00:00:00 00:00:00 Only Rafik Chris 71634.1.1 807 s t 3.430.2.7 Hospit a .3.299774 l .8 2022-04-22 2022-04-22 Orders Taylor, 1.2.840.4 5715610603 116 7236288 Methodi 00:00:00 00:00:00 Only Rafik Chris 29876.1.1 807 s t 3.430.2.7 Hospit a .3.218958 l .8 2022-01-21 2022-01-21 Refill Taylor, 1.2.840.1 205270203 2100 886169 Methodi 00:00:00 00:00:00 Rafik Chris 23322.1.1 740 s t 3.430.2.7 Hospit a .3.698291 l .8 2021-11-27 2021-11-27 [facility] Jose L, 1.2.840.1 [id number] 207102 9682 Methodi 15:00:00 15:15:00 Work Natalia 06270.1.[address] 3.430.2.7 Hospit a .3.273278 l .8 2021-11-27 2021-11-27 Office [facility], 1.2.840.1 [id number] 21 92134953 Methodi 14:00:00 14:15:00 Visit Reynaldo 59976.1.[address] 3.430.2.7 Hospit a .3.698560 l .8 2021-11-27 2021-11-27 Travel 1.2.840.1 1.2.458.658 2826 735754 Methodi 00:00:00 00:00:[address] 3.430.2.7 0.2.7.3.698 Ho spita .3.632641 084.8 l .8 2021-11-25 2021-11-25 Orders Taylor, 1.2.840.0 4753758496 132 9244306 Methodi 00:00:00 00:00:00 Only Luis Miguel Perez 20852.1.1 253 s t 3.430.2.7 Hospit a .3.990256 l .8 2021-10-16 2021-10-16 Cha Phillips, 1.2.840.1 [id number] 57327 04018 Methodi 00:00:00 00:00:00 Jamarcus Case 24794.1.[address] 3.430.2.7 Hospit a .3.562343 l .8 2021-08-21 2021-08-21 [facility], 1.2.840.1 [id number] 2 736307386 Methodi 10:44:00 23:59:00 Encounter Reynaldo 81274.1.[address] 3.430.2.7 Hospit a .3.746195 l .8 2021-08-21 2021-08-21 Office [facility], 1.2.840.1 [id number] 21 39924091 Methodi 14:30:00 14:45:00 Visit Reynaldo 49055.1.[address] 3.430.2.7 Hospit a .3.852297 l .8 2021-08-21 2021-08-21 [facility], 1.2.840.1 [id number] 2 [id number] Methodi 09:28:24 10:43:00 Encounter Reynaldo 21978.1.[address] 3.430.2.7 Hospit a .3.881256 l .8 2021-08-21 2021-08-21 Outpatient [facility] [id number] [place] 00:00:00 00:00:[address] RE[address]O [address] 2021-08-21 2021-08-21 Travel 1.2.840.1 1.2.079.349 6794 403932 Methodi 00:00:00 00:00:[address] 3.430.2.7 0.2.7.3.698 Ho spita .3.911960 084.8 l .8 2021-07-28 2021-07-28 Refill Ping, 1.2.840.1 342197878 139623 0267 Methodi 00:00:00 00:00:[address] 3.430.2.7 Hospit a .3.529850 l .8 2021-07-22 2021-07-22 Orders Ping, 1.2.840.1 707556000 190330 7845 Methodi 00:00:00 00:00:00 Only Loideth 92988.1.[address] 3.430.2.7 Hospit a .3.168205 l .8 2021-06-23 2021-06-23 Orders Ping, 1.2.840.1 760355643 199590 6029 Methodi 00:00:00 00:00:00 Only Loideth 21185.1.[address] 3.430.2.7 Hospit a .3.519189 l .8 2021-06-12 2021-06-12 Refill Buchert, 1.2.840.1 577627283 22288 95203 Methodi 00:00:00 00:00:00 Jamarcus Case 86584.1.[address] 3.430.2.7 Hospit a .3.850208 l .8 2021-06-10 2021-06-10 Refsampson Phillips, 1.2.840.1 687831919 95966 41400 Methodi 00:00:00 00:00:00 Jamarcus Case 97787.1.[address] 3.430.2.7 Hospit a .3.837514 l .8 2021-06-07 2021-06-07 Nurse Therapy, [facility] Covid Infusion [facility] 1.2.840.114 [id number] Univers 08:30:00 09:30:00 Visit Av Miguel [facility] 350.1.13.10 ity of [place] 4.2.7.2.686 [facility] [phone] [place] [id number] Branch OFFICE BUILDING 2021-06-07 2021-06-07 Outpatient R PRASANTH [facility] [id number] Univers 08:30:00 08:30:00 AV ity [facility] 2021-06-07 2021-06-07 Orders Doctor CALL 1.2.840.114 023154 [id number] Univers 00:00:00 00:00:00 Only Unassigned, SERENA 350.1.13.10 ity of [place] [facility] 4.2.7.2.686 Aakash [phone] [place] [address] Branch 2021-05-26 2021-05-26 Orders Ping 1.2.840.1 433827094 010085 3273 Methodi 00:00:00 00:00:00 Only Roland 37776.1.[address] 3.430.2.7 Hospit a .3.785952 l .8 2021-05-12 2021-05-12 Refsampson Phillips, 1.2.840.1 594949951 85654 40758 Methodi 00:00:00 00:00:00 Jamarcus Case 49058.1.[address] 3.430.2.7 Hospit a .3.249222 l .8 2021-04-24 2021-04-24 [facility], 1.2.840.1 [id number] 2100 127408 Methodi 00:00:00 00:00:[address] 3.430.2.7 Hospit a .3.819619 l .8 2021-04-03 2021-04-03 [facility], 1.2.840.1 [id number] 033016 0971 Methodi 15:45:00 16:00:00 Work Kerline 96891.1.[address] 3.430.2.7 Hospit a .3.360240 l .8 2021-04-03 2021-04-03 Office [facility], 1.2.840.1 [id number] Methodi 14:45:00 15:00:00 Visit Reynaldo 19378.1.[address] 3.430.2.7 Hospit a .3.838152 l .8 2021-04-03 2021-04-03 Travel 1.2.840.1 1.2.142.797 2318 898668 Methodi 00:00:00 00:00:[address] 3.430.2.7 0.2.7.3.698 Ho spita .3.318134 084.8 l .8 2021-04-01 2021-04-01 Orders Taylor, 1.2.840.1 1125170667 907 8665283 Methodi 00:00:00 00:00:00 Only Luis Miguel Perez 88496.1.1 609 s t 3.430.2.7 Hospit a .3.226466 l .8 2021-03-18 2021-03-18 Refill Ping, 1.2.840.1 847143332 910938 2494 Methodi 00:00:00 00:00:[address] 3.430.2.7 Hospit a .3.200629 l .8 2021-03-18 2021-03-18 Refill Ping, 1.2.840.1 771168979 024024 3796 Methodi 00:00:00 00:00:[address] 3.430.2.7 Hospit a .3.694309 l .8 2021-02-20 2021-02-20 Telephone Manjit, 1.2.840.1 [id number] 21 [id number] Methodi 00:00:00 00:00:[address] 3.430.2.7 Hospit a .3.041145 l .8 2021-02-18 2021-02-18 Refill Ping, 1.2.840.1 725882550 582536 9742 Methodi 00:00:00 00:00:[address] 3.430.2.7 Hospit a .3.221911 l .8 2021-02-05 2021-02-05 Telephone Devora, 1.2.840.1 [id number] 21 71997148 Methodi 00:00:00 00:00:[address] 3.430.2.7 Hospit a .3.983107 l .8 2021-02-03 2021-02-03 Orders Taylor, 1.2.840.5 7510623048 040 6554563 Methodi 00:00:00 00:00:00 Only Luis Miguel Perez 92392.1.1 724 s t 3.430.2.7 Hospit a .3.880501 l .8 2020-12-28 2020-12-28 [facility], 1.2.840.1 [id number] Methodi 07:01:04 07:16:04 Telemedici Reynaldo 78096.1.1 354 s t ne 3.430.2.7 Hospit a .3.280285 l .8 2020-12-26 2020-12-26 Telephone Maritza, 1.2.840.1 [id number] 803 6142282 Methodi 00:00:00 00:00:[address] 3.430.2.7 Hospit a .3.329462 l .8 2020-12-25 2020-12-25 Orders Taylor, 1.2.840.0 [id number] 859 [id number] Methodi 00:00:00 00:00:00 Only Luis Miguel Perez 64324.1.1 053 s t 3.430.2.7 Hospit a .3.318333 l .8 2020-12-03 2020-12-03 Telemedici Jacqueline, 1.2.840.1 [id number] 21 [id number] Methodi 11:39:49 11:59:49 ne Jamarcus Case 90024.1.[address] 3.430.2.7 Hospit a .3.294079 l .8 2020-11-28 2020-11-28 Refill Taylor, 1.2.840.1 [id number] 2099 938492 Methodi 00:00:00 00:00:00 Luis Miguel Perez 39086.1.1 530 s t 3.430.2.7 Hospit a .3.306065 l .8 2020-11-27 2020-11-27 Refill Taylor, 1.2.840.1 893337508 2099 489693 Methodi 00:00:00 00:00:00 Luis Miguel Perez 35768.1.1 121 s t 3.430.2.7 Hospit a .3.835477 l .8 2020-11-27 2020-11-27 Refill Buchert, 1.2.840.1 924524747 28367 Methodi 00:00:00 00:00:00 Jamarcus Case 56021.1.[address] 3.430.2.7 Hospit a .3.328211 l .8 2020-11-01 2020-11-01 Telephone Raheel, 1.2.840.1 [id number] 2100 653199 Methodi 00:00:00 00:00:[address].1.[address] 3.430.2.7 Hospit a .3.946188 l .8 2020-10-31 2020-10-31 Orders Taylor, 1.2.840.1 [id number] 2099 615682 Methodi 00:00:00 00:00:00 Only Luis Miguel Perez 65451.1.1 249 s t 3.430.2.7 Hospit a .3.721204 l .8 2020-10-09 2020-10-09 Documentat Pepper, 1.2.840.1 [id number] Methodi 00:00:00 00:00:00 ion Jocelyn 43817.1.[address] 3.430.2.7 Hospit a .3.395711 l .8 2020-10-04 2020-10-04 Telephone Ping, 1.2.840.1 [id number] 2100 028635 Methodi 00:00:00 00:00:[address] 3.430.2.7 Hospit a .3.080178 l .8 2020-10-02 2020-10-02 Procedure Lavonne, 1.2.840.1 069513223 082 0198089 Methodi 11:38:54 15:23:37 visit Shant 39240.1.[address] [place] 3.430.2.7 Hospit a .3.219814 l .8 2020-10-02 2020-10-02 Travel 1.2.840.1 1.2.188.501 4245 032026 Methodi 00:00:00 00:00:[address] 3.430.2.7 0.2.7.3.698 Ho spita .3.056448 084.8 l .8 2020-09-30 2020-09-30 Orders Taylor, 1.2.840.1 [id number] 2100 028286 Methodi 00:00:00 00:00:00 Only Luis Miguel Perez 87406.1.1 483 s t 3.430.2.7 Hospit a .3.502596 l .8 2020-09-24 2020-09-24 Travel 1.2.840.1 1.2.758.278 4147 101903 Methodi 00:00:00 00:00:[address] 3.430.2.7 0.2.7.3.698 Ho spita .3.065817 084.8 l .8 2020-09-16 2020-09-16 Office Lavonne, 1.2.840.1 [id number] 84484 44879 Methodi 09:38:18 11:07:39 Visit Wentworth 33104.1.[address] [place] 3.430.2.7 Hospit a .3.229650 l .8 2020-09-16 2020-09-16 Travel 1.2.840.1 1.2.219.266 3729 996246 Methodi 00:00:00 00:00:[address] 3.430.2.7 0.2.7.3.698 Ho spita .3.347791 084.8 l .8 2020-09-11 2020-09-11 Orders Muse, 1.2.840.1 [id number] 24042 96716 Methodi 00:00:00 00:00:00 Only Cleo 98292.1.[address] 3.430.2.7 Hospit a .3.052203 l .8 2020-09-11 2020-09-11 Orders Jacqueline, 1.2.840.1 [id number] 49069 60052 Methodi 00:00:00 00:00:00 Only Jamarcus Case 47010.1.[address] 3.430.2.7 Hospit a .3.885331 l .8 2020-09-10 2020-09-10 Office Bucherika, 1.2.840.1 071020208 16036 03997 Methodi 09:55:35 10:20:46 Visit Jamarcus Case 59715.1.[address] 3.430.2.7 Hospit a .3.797942 l .8 2020-09-10 2020-09-10 Orders Jacqueline, 1.2.840.1 337125686 30681 74948 Methodi 00:00:00 00:00:00 Only Jamarcus Case 26524.1.[address] 3.430.2.7 Hospit a .3.640431 l .8 2020-09-10 2020-09-10 Travel 1.2.840.1 1.2.954.891 4367 064933 Methodi 00:00:00 00:00:[address] 3.430.2.7 0.2.7.3.698 Ho spita .3.326204 084.8 l .8 2020-09-06 2020-09-06 [facility] 1.2.840.1 [id number] Methodi 10:23:29 23:59:00 Encounter Rene 45585.1.[address] Kermit 3.430.2.7 Hospit a .3.198134 l .8 2020-09-06 2020-09-06 [facility] Richy Almaguer Treviño 1.2.840 .1 [id number] Methodi 10:23:18 23:59:00 Encounter Rene Steele 50607.1.[address] 3.430.2.7 Hospit a .3.327390 l .8 2020-09-05 2020-09-05 Travel 1.2.840.1 1.2.662.007 2280 998192 Methodi 00:00:00 00:00:[address] 3.430.2.7 0.2.7.3.698 Ho spita .3.989905 084.8 l .8 2020-09-03 2020-09-03 Travel 1.2.840.1 1.2.199.327 9552 988625 Methodi 00:00:00 00:00:[address] 3.430.2.7 0.2.7.3.698 Ho spita .3.746731 084.8 l .8 2020-09-02 2020-09-02 [place] 1.2.840.1 [id number] [id number] Methodi 00:00:00 00:00:[address] 3.430.2.7 Hospit a .3.375705 l .8 2020-08-30 2020-08-30 Travel 1.2.840.1 1.2.445.913 7542 416795 Methodi 00:00:00 00:00:[address] 3.430.2.7 0.2.7.3.698 Ho spita .3.144157 084.8 l .8 2020-08-28 2020-08-28 Orders Muse, 1.2.840.1 714009403 46788 Methodi 00:00:00 00:00:00 Only Cleo 61030.1.[address] 3.430.2.7 Hospit a .3.792608 l .8 2020-08-28 2020-08-28 Orders Muse, 1.2.840.1 032073067 24059 Methodi 00:00:00 00:00:00 Only Cleo 00962.1.[address] 3.430.2.7 Hospit a .3.964853 l .8 2020-08-22 2020-08-22 Office TaylorLuis Miguel Chris 1.2.840.1 104 087793 [id number] Methodi 12:30:13 12:45:13 Visit Reynaldo Bah 62301.1.[address] 3.430.2.7 Hospit a .3.479644 l .8 2020-08-22 2020-08-22 Office Jacqueline 1.2.840.1 107226534 41593 12445 Methodi 10:47:44 11:02:44 Visit Jamarcus Case 63595.1.[address] 3.430.2.7 Hospit a .3.088450 l .8 2020-08-22 2020-08-22 Travel 1.2.840.1 1.2.416.721 3763 960105 Methodi 00:00:00 00:00:[address] 3.430.2.7 0.2.7.3.698 Ho spita .3.939779 084.8 l .8 2020-08-13 2020-08-13 Refill Ping, 1.2.840.1 775586754 583657 4048 Methodi 00:00:00 00:00:[address] 3.430.2.7 Hospit a .3.854532 l .8 2020-08-12 2020-08-12 Travel 1.2.840.1 1.2.814.378 8980 249601 Methodi 00:00:00 00:00:[address] 3.430.2.7 0.2.7.3.698 Ho spita .3.789006 084.8 l .8 2020-08-09 2020-08-09 Refill Jacqueline, 1.2.840.1 965156028 94228 21860 Methodi 00:00:00 00:00:00 Jamarcus Case 01758.1.[address] 3.430.2.7 Hospit a .3.333382 l .8 2020-08-08 2020-08-08 Refill Taylor, 1.2.840.1 [id number] 2099 794765 Methodi 00:00:00 00:00:00 Luis Miguel Chris 97787.1.1 712 s t 3.430.2.7 Hospit a .3.553282 l .8 2020-08-03 2020-08-03 Nurse Therapy, [facility] Covid Infusion [facility] 1.2.840.114 [id number] Univers 07:56:47 08:26:47 Visit Richy Coyne 350.1.13.10 ity [place] 4.2.7.2.686 [place] [facility] 888.2364292 [place] 308023 [place] 2020-08-03 2020-08-03 Outpatient R [facility] 2514000 711 Univers 08:00:00 08:00:00 ity of [facility] 2020-08-01 2020-08-01 Orders Doctor ONEYDA 1.2.840.114 [id number] [facility] 00:00:00 00:00:00 Only Unassigned, SERENA 350.1.13.10 ity of [place] [facility] 4.2.7.2.686 Aaaksh as [id number] [place] [address] [place] 2020-08-01 2020-08-01 Orders Ping, 1.2.840.1 [id number] Methodi 00:00:00 00:00:00 Only Roland [address]051.1.[address] 3.430.2.7 Hospit a .3.436958 l .8 2020-08-01 2020-08-01 Telephone [place], 1.2.840.1 [id number] [id number] Methodi 00:00:00 00:00:00 Yuli [address]1.[address] 3.430.2.7 Hospit a .3.112915 l .8 2020-07-29 2020-07-29 Telephone [place], 1.2.840.1 [id number] Methodi 00:00:00 00:00:[address] 3.430.2.7 Hospit a .3.109782 l .8 2020-07-03 2020-07-03 Outpatient TAYLOR, [facility] [id number] [place] 00:00:00 00:00:00 LUIS MIGUEL [address] 2020-07-03 2020-07-03 Outpatient SAHARIA, [facility] [id number] [place] 00:00:00 00:00:00 JERMAIN [address] 2020-07-03 2020-07-03 Outpatient TAYLOR, [facility] [id number] [place] 00:00:00 00:00:00 LUIS MIGUEL [address] 2020-07-03 2020-07-03 Outpatient TAYLOR, [facility] [id number] [place] 00:00:00 00:00:00 LUIS MIGUEL [address] 2020-04-26 2020-04-26 Outpatient WENDYM, [facility] [id number] [place] 00:00:00 00:00:00 TONIE [address] 2020-04-17 2020-04-17 Outpatient ABDELRAHIM, [facility] [id number] [place] 00:00:00 00:00:00 TONIE [address] 2020-04-09 2020-04-09 Outpatient ABDELRAHIM, [facility] [id number] [place] 00:00:00 00:00:00 TONIE [address] 2020-04-09 2020-04-09 Outpatient ABDELRAHIM, [facility] [id number] [place] 00:00:00 00:00:00 TONIE [address] 2020-04-09 2020-04-09 Outpatient ABDELRAHIM, [facility] [id number] [place] 00:00:00 00:00:00 TONIE [address] 2020-04-04 2020-04-04 Outpatient ANKOMA-SEY, [facility] [id number] [place] 00:00:00 00:00:00 REYNALDO [address] 2020-04-04 2020-04-04 Outpatient [facility] [id number] [place] 00:00:00 00:00:[address] 2020-03-07 2020-03-07 Outpatient MALONE, [facility] [id number] [place] 00:00:00 00:00:00 ALVARO [address] 2020-02-27 2020-02-27 Outpatient TAYLOR, [facility] [id number] [place] 00:00:00 00:00:00 LUIS MIGUEL [address] 2020-02-27 2020-02-27 Outpatient FRANCO DORI [facility] [id number] [id number] [place] 00:00:00 00:00:[address] 2020-02-27 2020-02-27 Outpatient [facility] [id number] [place] 00:00:00 00:00:[address] 2020-02-27 2020-02-27 Outpatient RICHY ALMAGUER [facility] [id number] [id number] [place] 00:00:00 00:00:[address] 2020-02-27 2020-02-27 Outpatient SIFF, DORI [facility] [id number] [id number] [place] 00:00:00 00:00:[address] 2020-02-22 2020-02-22 Outpatient ANKOMA-SEY, [facility] [id number] [place] 00:00:00 00:00:00 REYNALDO 642 Method i 2020-02-22 2020-02-22 Outpatient EGWIM, [facility] [id number] [place] 00:00:00 00:00:00 CHUYITA Coreyo di 2020-02-22 2020-02-22 Outpatient MALONE, [facility] [id number] [place] 00:00:00 00:00:00 ALVARO 206 Method i 2020-02-22 2020-02-22 Outpatient ANKOMA-SEY, [facility] [id number] [place] 00:00:00 00:00:00 REYNALDO 207 Method i 2019-12-29 2019-12-29 Outpatient [facility] [id number] [place] 00:00:00 00:00:00 582 Method i 2019-09-27 2019-09-27 Outpatient [facility] [id number] [place] 00:00:00 00:00:[address] 2019-09-26 2019-09-26 Outpatient [facility] [id number] [place] 00:00:00 00:00:[address] 2019-09-26 2019-09-26 Outpatient [facility] [id number] [place] 00:00:00 00:00:[address] 2019-09-26 2019-09-26 Outpatient [facility] [id number] [place] 00:00:00 00:00:[address] 2019-09-26 2019-09-26 Outpatient VALE, RICHY [facility] [id number] [id number] [place] 00:00:00 00:00:[address] 2019-09-26 2019-09-26 Outpatient VALE, RICHY [facility] [id number] [id number] [place] 00:00:00 00:00:[address] 2019-08-15 2019-08-15 Outpatient TAYLOR, [facility] [id number] [place] 00:00:00 00:00:00 RAFIK [address] 2019-08-15 2019-08-15 Outpatient TAYLOR, [facility] [id number] [place] 00:00:00 00:00:00 RAFIK [address] 2019-08-15 2019-08-15 Outpatient TAYLOR, [facility] [id number] [place] 00:00:00 00:00:00 RAFIK 922 Method i 2019-08-15 2019-08-15 Outpatient TAYLOR, [facility] [id number] [place] 00:00:00 00:00:00 RAFIK 931 Method i 2019-08-15 2019-08-15 Outpatient TAYLOR, [facility] [id number] [place] 00:00:00 00:00:00 RAFIK 930 Method i 2019-08-15 2019-08-15 Outpatient TAYLOR, [facility] [id number] [place] 00:00:00 00:00:00 RAFIK 980 Method i 2019-08-15 2019-08-15 Outpatient TAYLOR, [facility] [id number] [place] 00:00:00 00:00:00 RAFIK 932 Method i Results Test Description Test Time Test Comments Results Result Comments Source Hepatic function panel 2023-02-23 16:23:00 Test Item Value Reference Range Interpretation Comme nts Protein (test code = 6.3 g/dL 6.1-8.1 2884-2) Albumin (test code = 3.6 g/dL 3.6-5.1 1750-7) Globulin, total (test code 2.7 See_Comment [Automated message] = 69846-0) The system [facility] generated this result transmitted ref erence range: 1.9 - 3. 7 g/dL (calc). The ref erence range was not u sed to interpret this result as normal/abnor mal. Albumin/globulin ratio 1.3 See_Comment [Aut omated message] (test code = 1759-0) The [facility] which generated this result transmitted ref erence range: 1.0 - 2. 5 (calc). The ref erence range was not u sed to interpret this result as normal/abnor mal. Total bilirubin (test code 0.4 mg/dL 0.2-1.2 = 1974-) Bilirubin direct (test 0.1 mg/dL See_Comment [Aut omated message] code = 1967-7) The system [facility] generated this result transmitted ref erence range: < OR = 0 .2. The reference range was not used to int erpret this result as normal/abnormal . Bilirubin, indirect (test 0.3 See_Comment [ Automated message] code = 1971-1) The system wh ich generated this result transmitted ref erence range: [...] Performing Organization Information: Site ID: [facility] Name: [facility] Address: [address] [place] [address] Director: Robert Scott Lab Interpretation (test Abnormal code = 45340-2) [facility]2023-09-05 16:23:00 Test Item Value Reference Range Interpretation Comments Magnesium (test code 1.6 mg/dL 1.5-2.5 = 64796-1) JOSEFA (test code = JOSEFA) FASTING:YES FASTING: YES RAC (test code = RAC) Performing Organization Information: Site ID: LAXMIA Name: [facility] Address: [address] [place] [address] Director: Robert Scott [facility] with platelet and [id number] 16:23:00 Test Item Value Reference Range Interpretation Comments WBC (test code = 10.1 See_Comment [Automated 5865-2) message] The system which generated this result transmitted reference range : 3.8 - 10.8 Thousand/uL. Th e reference range was not used to interpret this result as normal/abnormal . RBC (test code = 4.45 See_Comment [Automated 665-8) message] The system which generated this result [...] RAC) Organization Information: Site ID: RGA Name: [facility] Lab Address: [address] [place] [address] Director: Robert Scott Lab Interpretation Abnormal (test code = 69897-7) [facility] [id number] 16:23:00 Test Item Value Reference Interpretation Comments Range Alpha 2.4 ng/mL <=6.1 This test was performed fetoprotein using the Beckm an (test code = Coulterchemilum inescent 22419-1) method. Values obtained fromdifferent a ssay methods cannot be usedinterchange ably. AFP levels, regardl ess ofvalue, should not be interpreted as absoluteevidenc e of the presence or abs ence of disease. JOSEFA (test code FASTING:YES = JOSEFA) FASTING: YES RAC (test code Performing = RAC) Organization Information: Site ID: IG Name: [facility] Address: [address] [place] [address] Director: Dr. Fran Guajardo [facility] Tacrolimus level, [id number] 16:23:00 Test Item Value Reference Range Interpretation Comments Tacrolimus, 6.5 mcg/L No definitive highly therapeutic or toxic sensitive, ranges have LC/MS/MS beenestablished . (test code = Optimal blood d rug 04909-5) levels are influencedby ty pe of transplant, pat ient response, time post-transplant , co-administrati on of other drugs, an d drug formulation. Th e following troug h range is a suggested guideline: 5.0- 20.0 mcg/L. This macrina t was developed and i ts analytical perf ormance characteristics have been determined by [employer]. It has not been cl eared or approved by theFDA. This assay has been validated pursu ant to the CLIA regula tions and is used for clinical purpos es. JOSEFA (test FASTING:YES code = JOSEFA) FASTING: YES RAC (test Performing code = RAC) Organization Information: Site ID: IG Name: [facility] Address: [address] [place] [address], [place] [address] Director: Dr. Fran Guajardo [facility] METABOLIC PANEL, [id number] 16:23:00 Test Item Value Reference Range Interpretation Comments Glucose (test 99 mg/dL 65-99 Fasting refer ence code = 2345-7) interval BUN (test code = 13 mg/dL 7-25 3094-0) Creatinine (test 1.27 mg/dL 0.70-1.35 code = 2160-0) eGFR (test code = 65 See_Comment [Automate d 18210-9) message] The system which generated this result [...] Calcium (test 9.2 mg/dL 8.6-10.3 code = 45709-8) JOSEFA (test code = FASTING:YES JOSEFA) FASTING: YES RAC (test code = Performing RAC) Organization Information: Site ID: RGA Name: [facility] Address: [address] [place] [address] Director: Robert Scott [facility] function [id number] 16:23:00 Test Item Value Reference Range Interpretation Comments Protein (test code = 6.3 g/dL 6.1-8.1 2885-2) Albumin (test code = 3.6 g/dL 3.6-5.1 1751-7) Globulin, total 2.7 See_Comment [Automated (test code = message] The 53729-5) system which generated this result transmitted reference [...] = Performing RAC) Organization Information: Site ID: [facility] Name: [facility] Address: [address] [place] [address] Director: Robert Scott Lab Interpretation Abnormal (test code = 67697-2) [facility]2023-09-05 16:23:00 Test Item Value Reference Range Interpretation Comments Magnesium (test code 1.6 mg/dL 1.5-2.5 = 36261-8) JOSEFA (test code = JOSEFA) FASTING:YES FASTING: YES RAC (test code = RAC) Performing Organization Information: Site ID: [facility] Name: [facility] Address: [address] [place] [address] Director: Robert Scott [facility] with platelet and [id number] 16:23:00 Test Item Value Reference Range Interpretation [...] RAC) Organization Information: Site ID: RGA Name: [facility] Address: [address] [place] [address] Director: Robert Scott Lab Interpretation Abnormal (test code = 93072-8) [facility] [id number] 16:23:00 Test Item Value Reference Interpretation Comments Range Alpha 2.4 ng/mL <=6.1 This test was performed fetoprotein using the Beckm an (test code = Coulterchemilum inescent 47700-4) method. Values obtained fromdifferent a ssay methods cannot be usedinterchange ably. AFP levels, regardl ess ofvalue, should not be interpreted as absoluteevidenc e of the presence or abs ence of disease. JOSEFA (test code FASTING:YES = JOSEFA) FASTING: YES RAC (test code Performing = RAC) Organization Information: Site ID: IG Name: [facility] Lab Address: [address] [place] [address] Director: Dr. Fran Guajardo [facility] Tacrolimus level, [id number] 16:23:00 Test Item Value Reference Range Interpretation Comments Tacrolimus, 6.5 mcg/L No definitive highly therapeutic or toxic sensitive, ranges have LC/MS/MS beenestablished . (test code = Optimal blood d rug 89729-4) levels are influencedby ty pe of transplant, pat ient response, time post-transplant , co-administrati on of other drugs, an d drug formulation. Th e following troug h range is a suggested guideline: 5.0- 20.0 mcg/L. This macrina t was developed and i ts analytical perf ormance characteristics have been determined by [employer]. It has not been cl eared or approved by theA. This assay has been validated pursu ant to the CLIA regula tions and is used for clinical purpos es. JOSEFA (test FASTING:YES code = JOSEFA) FASTING: YES RAC (test Performing code = RAC) Organization Information: Site ID: IG Name: [facility] Address: [address] [place] [address], [place] [address] Director: Dr. Fran Guajardo [facility] METABOLIC PANEL, [id number] 16:23:00 Test Item Value Reference Range Interpretation Comments Glucose (test 99 mg/dL 65-99 Fasting refer ence code = 2345-7) interval BUN (test code = 13 mg/dL 7-25 3094-0) Creatinine (test 1.27 mg/dL 0.70-1.35 code = 2160-0) eGFR (test code = 65 See_Comment [Automate d 25102-1) message] The system which generated this result [...] Calcium (test 9.2 mg/dL 8.6-10.3 code = 27121-1) JOSEFA (test code = FASTING:YES JOSEFA) FASTING: YES RAC (test code = Performing RAC) Organization Information: Site ID: RGA Name: [facility] Address: [address] [place] [address] Director: Robert Scott [facility] function [id number] 16:23:00 Test Item Value Reference Range Interpretation Comments Protein (test code = 6.3 g/dL 6.1-8.1 2884-2) Albumin (test code = 3.6 g/dL 3.6-5.1 7) Globulin, total 2.7 See_Comment [Automated (test code [...] RAC) Organization Information: Site ID: RGA [facility]: [facility] Address: [address] [place] [address] Director: Robert Scott Lab Interpretation Abnormal (test code = 51501-2) [facility] [id number] 16:23:00 Test Item Value Reference Range Interpretation Comments Magnesium (test code 1.6 mg/dL 1.5-2.5 = 60680-8) JOSEFA (test code = JOSEFA) FASTING:YES FASTING: YES RAC (test code = RAC) Performing Organization Information: Site ID: RGA Name: [facility] Address: [address] [place] [address] Director: Robert Scott [facility] with platelet and [id number] 16:23:00 Test Item Value Reference Range Interpretation Comments WBC (test code = 10.1 See_Comment [Automated 0457-2) message] The system which generated this result transmitted reference range : 3.8 - 10.8 Thousand/uL. Th e reference range was not used to interpret this result as normal/abnormal . RBC (test code = 4.45 See_Comment [Automated 148-8) message] The system which generated this result [...] RAC) Organization Information: Site ID: RGA Name: [facility] Lab Address: [address] [place] [address] Director: Robert Scott Lab Interpretation Abnormal (test code = 09614-8) [facility] [id number] 16:23:00 Test Item Value Reference Interpretation Comments Range Alpha 2.4 ng/mL <=6.1 This test was performed fetoprotein using the Beck an (test code = Coulterchemilum inescent 21075-1) method. Values obtained fromdifferent a ssay methods cannot be usedinterchange ably. AFP levels, regardl ess ofvalue, should not be interpreted as absoluteevidenc e of the presence or abs ence of disease. JOSEFA (test code FASTING:YES = JOSEFA) FASTING: YES RAC (test code Performing = RAC) Organization Information: Site ID: IG Name: [facility] Address: [address] [place] [address] Director: Dr. Fran Bolanos [id number] Tacrolimus level, [id number] 16:23:00 Test Item Value Reference Range Interpretation Comments Tacrolimus, 6.5 mcg/L No definitive highly therapeutic or toxic sensitive, ranges have LC/MS/MS beenestablished . (test code = Optimal blood d rug 60332-4) levels are influencedby ty pe of transplant, pat ient response, time post-transplant , co-administrati on of other drugs, an d drug formulation. Th e following troug h range is a suggested guideline: 5.0- 20.0 mcg/L. This macrina t was developed and i ts analytical perf ormance characteristics have been determined by [employer]. It has not been cl eared or approved by theA. This assay has been validated pursu ant to the CLIA regula tions and is used for clinical purpos es. JOSEFA (test FASTING:YES code = JOSEFA) FASTING: YES RAC (test Performing code = RAC) Organization Information: Site ID: IG Name: [facility] Address: [address] [place] [address], [place] [address] Director: Dr. Fran Guajardo [facility] METABOLIC PANEL, [id number] 16:23:00 Test Item Value Reference Range Interpretation Comments Glucose (test 99 mg/dL 65-99 Fasting refer ence code = 2345-7) interval BUN (test code = 13 mg/dL 7-25 3094-0) Creatinine (test 1.27 mg/dL 0.70-1.35 code = 2160-0) eGFR (test code = 65 See_Comment [Automate d 73604-0) message] The system which generated this result [...] CO2 (test code = 20 mmol/L 20-32 2027-) Calcium (test 9.2 mg/dL 8.6-10.3 code = 91504-5) JOSEFA (test code = FASTING:YES JOSEFA) FASTING: YES RAC (test code = Performing RAC) Organization Information: Site ID: RGA Name: [facility] Address: [address] [place] [address] [facility] [id number] 16:23:00 Test Item Value Reference Range Interpretation [...] RAC) Organization Information: Site ID: A Name: [facility] Address: [address] [place] [address] Director: Robert Scott Lab Interpretation Abnormal (test code = 55873-2) [facility] [id number] 16:23:00 Test Item Value Reference Range Interpretation Comments Magnesium (test code 1.6 mg/dL 1.5-2.5 = 84197-1) JOSEFA (test code = JOSEFA) FASTING:YES FASTING: YES RAC (test code = RAC) Performing Organization Information: Site ID: [facility] Name: [facility] Address: [address] [place] [address] Director: Robert Scott [facility] with platelet and [id number] 16:23:00 Test Item Value Reference Range Interpretation Comments WBC (test code = 10.1 See_Comment [Automated 2451-2) message] The system which generated this result transmitted reference range : 3.8 - 10.8 Thousand/uL. Th e reference range was not used to interpret this result as normal/abnormal . RBC (test code = 4.45 See_Comment [Automated 895-8) message] The system which generated this result [...] normal/abnormal . Monocytes, absolute 636 See_Comment [Automa rodriog (test code = 742-7) message] The system [...] RAC) Organization Information: Site ID: RGA Name: [facility] Lab Address: [address] [place] [address] Director: Robert Scott Lab Interpretation Abnormal (test code = 73760-3) [facility] [id number] 16:23:00 Test Item Value Reference Interpretation Comments Range Alpha 2.4 ng/mL <=6.1 This test was performed fetoprotein using the Beckm an (test code = Coulterchemilum inescent 87851-4) method. Values obtained fromdifferent a ssay methods cannot be usedinterchange ably. AFP levels, regardl ess ofvalue, should not be interpreted as absoluteevidenc e of the presence or abs ence of disease. JOSEFA (test code FASTING:YES = JOSEFA) FASTING: YES RAC (test code Performing = RAC) Organization Information: Site ID: IG Name: [facility] Lab Address: [address] [place] [address] Director: Dr. Fran Guajardo [facility] Tacrolimus level, [id number] 16:23:00 Test Item Value Reference Range Interpretation Comments Tacrolimus, 6.5 mcg/L No definitive highly therapeutic or toxic sensitive, ranges have LC/MS/MS beenestablished . (test code = Optimal blood d rug 94436-4) levels are influencedby ty pe of transplant, pat ient response, time post-transplant , co-administrati on of other drugs, an d drug formulation. Th e following troug h range is a suggested guideline: 5.0- 20.0 mcg/L. This macrina t was developed and i ts analytical perf ormance characteristics have been determined by [employer] . It has not been cl eared or approved by theFDA. This assay has been validated pursu ant to the CLIA regula tions and is used for clinical purpos es. JOSEFA (test FASTING:YES code = JOSEFA) FASTING: YES RAC (test Performing code = RAC) Organization Information: Site ID: IG Name: [facility] Lab Address: [address] [place] [address] Director: Dr. Fran Guajardo [facility] METABOLIC PANEL, [id number] 16:23:00 Test Item Value Reference Range Interpretation Comments Glucose (test 99 mg/dL 65-99 Fasting refer ence code = 2345-7) interval BUN (test code = 13 mg/dL 7-25 3094-0) Creatinine (test 1.27 mg/dL 0.70-1.35 code = 2160-0) eGFR (test code = 65 See_Comment [Automate d 18692-3) message] The system which generated this result transmit rodrigo reference range : > OR = 60 mL/min/1.73m2. The reference range was not used to interpret this result as normal/abnormal . BUN/creatinine SEE NOTE: See_Comment Not Reporte d: ratio (test code BUN and Cre atinine = 3097-3) are within reference range . [Automated message] The system which generated this [...] Calcium (test 9.2 mg/dL 8.6-10.3 code = 72751-1) JOSEFA (test code = FASTING:YES JOSEFA) FASTING: YES RAC (test code = Performing RAC) Organization Information: Site ID: RGA Name: [facility] Address: [address] [place] [address] Director: Robert Scott [facility] [id number] 13:58:00 Test Item Value Reference Range Interpretation Comments POC creatinine (test 1.6 mg/dl 0.7-1.2 H Operato r Name: code = 55685-8) Linda Quintana Device ID: [id number] Lab Interpretation (test Abnormal code = 50791-4) [facility] [id number] 13:58:00 Test Item Value Reference Range Interpretation Comments Estimated GFR (test 46 mL/min/1.73 m2 A Caterg sumanth Units code = 99599-4) Interpretati onG1 >=90 Normal or highG 2 60-89 Mildly decrease dG3a 45-59 Mildly to moderately decr dlyceU0o 30-44 Moderatel y to severely decrea sedG4 15-29 Severely decreasedG5 <15 Kidney failureThe eGFR was calculated usin g the Chronic Kidney Disease Epidemiology Collaboration ( CKD-EPI) equation. Interpretation is based on recommendati ons of the [facility] Disease Outcome s Quality Initiat agustín ([facility]) pub lished in 2013. Lab Interpretation Abnormal (test code = 96059-7) [facility] [id number] 13:58:00 Test Item Value Reference Range Interpretation Comments POC creatinine (test 1.6 mg/dl 0.7-1.2 H Operato r Name: code = 16664-2) [address] Device ID: [id number] Lab Interpretation (test Abnormal code = 60238-3) [facility] [id number] 13:58:00 Test Item Value Reference Range Interpretation Comments Estimated GFR (test 46 mL/min/1.73 m2 A Caterg ory Units code = 39119-4) Interpretati onG1 >=90 Normal or highG 2 60-89 Mildly decrease dG3a 45-59 Mildly to moderately decr ccgfuJ4j 30-44 Moderatel y to severely decrea sedG4 15-29 Severely decreasedG5 <15 Kidney failureThe eGFR was calculated usin g the Chronic Kidney Disease Epidemiology Collaboration ( CKD-EPI) equation. Interpretation is based on recommendati ons of the [facility] Disease Outcome s Quality Initiat agustín ([facility]) pub lished in 2013. Lab Interpretation Abnormal (test code = 11626-9) [facility] [id number] 13:58:00 Test Item Value Reference Range Interpretation Comments POC creatinine (test 1.6 mg/dl 0.7-1.2 H Operato r Name: code = 08090-5) Therioy Device ID: [id number] Lab Interpretation (test Abnormal code = 01459-6) [facility] [id number] 13:58:00 Test Item Value Reference Range Interpretation Comments Estimated GFR (test 46 mL/min/1.73 m2 A Caterg ory Units code = 39441-4) Interpretati onG1 >=90 Normal or highG 2 60-89 Mildly decrease dG3a 45-59 Mildly to moderately decr oxyxjE0y 30-44 Moderatel y to severely decrea sedG4 15-29 Severely decreasedG5 <15 Kidney failureThe eGFR was calculated usin g the Chronic Kidney Disease Epidemiology Collaboration ( CKD-EPI) equation. Interpretation is based on recommendati ons of the [facility] Disease Outcome s Quality Initiat agustín ([facility]-KDOQI) pub lished in 2013. Lab Interpretation Abnormal (test code = 56861-3) [facility] [id number] 13:58:00 Test Item Value Reference Range Interpretation Comments POC creatinine (test 1.6 mg/dl 0.7-1.2 H Operato r Name: code = 17371-8) Linda Quintana Device ID: [id number] Lab Interpretation (test Abnormal code = 49409-3) [facility] [id number] 13:58:00 Test Item Value Reference Range Interpretation Comments Estimated GFR (test 46 mL/min/1.73 m2 A Caterg ory Units code = 01370-4) Interpretati onG1 >=90 Normal or highG 2 60-89 Mildly decrease dG3a 45-59 Mildly to moderately decr ibonpP5f 30-44 Moderatel y to severely decrea sedG4 15-29 Severely decreasedG5 <15 Kidney failureThe eGFR was calculated usin g the Chronic Kidney Disease Epidemiology Collaboration ( CKD-EPI) equation. Interpretation is based on recommendati ons of the [facility] Disease Outcome s Quality Initiat agustín ([facility]) pub lished in 2013. Lab Interpretation Abnormal (test code = 54667-2) [facility]ne[facility] function [id number] 19:13:00 Test Item Value Reference Range Interpretation Comments Protein (test code = 7.3 g/dL 6.1-8.1 2885-2) Albumin, S (test 4.2 g/dL 3.6-5.1 code = 1751-7) Globulin, total See_Comment [Automated (test code = message] The 77681-4) system which generated this result transmitted reference range : 1.9 - 3.7 g/dL (calc). The reference range was not used to interpret this result as normal/abnormal . Albumin/globulin See_Comment [Automated ratio (test code = message] The 1759-0) system which generated this result transmitted reference [...] = Performing RAC) Organization Information: Site ID: [facility] Name: [facility] Address: [address] [place] [address] Director: Fran Guajardo Lab Interpretation Abnormal (test code = 05010-8) [facility]2022-06-14 19:13:00 Test Item Value Reference Range Interpretation Comments Magnesium (test code 2.0 mg/dL 1.5-2.5 = 70450-1) JOSEFA (test code = JOSEFA) FASTING:YES FASTING: YES RAC (test code = RAC) Performing Organization Information: Site ID: [facility] Name: [facility] Address: [address] [place] [address] Director: Fran Guajardo [facility] with platelet and revscmezkxyo9814-05-45 19:13:00 Test Item Value Reference Range Interpretation Comments WBC (test code = See_Comment [Automated 1290-2) message] The system which generated this result [...] absolute See_Comment [Automa rodrigo (test code = 554-7) message] The system which generated this result [...] = Performing RAC) Organization Information: Site ID: [facility] Name: [facility] Address: [address] [place] [address] Director: Fran Guajardo Lab Interpretation Abnormal (test code = 88374-1) [facility]ne[facility]th[facility] time with [id number] 19:13:00 Test Item Value Reference Range Interpretation Comments INR (test code = Reference R marlo 6301-6) 0.9-1.1Moderate -i ntensity Warfar in Therapy 2.0-3.0Higher-i nt ensity Warfarin Therapy 3.0-4.0 Prothrombin time See_Comment For additio nal (test code = information, 5902-2) please refer tohttp://educat HealthTap n.Home Team Therapy/faq/FAQ10 4( This link is being provided for informational/e du cational purpos es only.) [Automat ed message] The system which generated this result transmitted reference range : 9.0 - 11.5 sec. The reference range was not used to interpr et this result as normal/abnormal . JOSEFA (test code = FASTING:YES JOSEFA) FASTING: YES RAC (test code = Performing RAC) Organization Information: Site ID: [facility] Name: [facility] Lab Address: [address] [place] [address] Director: Fran Guajardo [facility] CleburneFK506 Tacrolimus level, [id number] 19:13:00 Test Item Value Reference Range Interpretation Comments Tacrolimus, mcg/L No definitive highly therapeutic or toxic sensitive, ranges have LC/MS/MS beenestablished . (test code = Optimal blood d rug 51767-8) levels are influencedby ty pe of transplant, pat ient response, time post-transplant , co-administrati on of other drugs, an d drug formulation. Th e following troug h range is a suggested guideline: 5.0- 20.0 mcg/L. This macrina t was developed and i ts analytical perf ormance characteristics have been determined by [employer]. It has not been cl eared or approved by theA. This assay has been validated pursu ant to the CLIA regula tions and is used for clinical purpos es. JOSEFA (test FASTING:YES code = JOSEFA) FASTING: YES RAC (test Performing code = RAC) Organization Information: Site ID: IG Name: [facility] Address: [address] [place] [address] Director: Dr. Fran Guajardo [facility] METABOLIC PANEL, [id number] 19:13:00 Test Item Value Reference Interpretation Comments [...] n. EGFR Non-Afr. See_Comment [Automated me ssage] Bangladeshi (test code The syst em which = 3021) generated this result transmit rodrigo reference range : > OR = 60 mL/min/1.73m2. The reference range was not used to interpret this result as normal/abnormal . EGFR See_Comment [Automated mes dhruv] Bangladeshi (test code The syst em which = 3431) generated this result transmit rodrigo reference range [...] . Sodium (test code = 139 mmol/L 121-308 0291-2) Potassium (test 4.8 mmol/L 3.4-4.8 code = 2823-3) Chloride (test code 107 mmol/L 98-110 = 2075-0) CO2 (test code = 20 mmol/L 20-32 2027-9) Calcium (test code 9.8 mg/dL 8.6-10.3 = 54909-3) JOSEFA (test code = FASTING:YES JOSEFA) FASTING: YES RAC (test code = Performing RAC) Organization Information: Site ID: RGA Name: [facility] Address: [address] [place] [address] Director: Fran Guajardo Lab Interpretation Abnormal (test code = 64843-5) [facility]nePhosphatidylethanol, [id number] 19:13:00 Test Item Value Reference Interpretation Comments Range Phosphatidylethan 600 ng/mL H Reporting Limit: 20 ng/mL ol, blood (test Synonym(s): Phosphatidyl code = 14324-8) Ethanol; PethPhosphatidy lethanol (PEth) is an ethanol-derived [...] i ts performance characteristics determined by [facility]. It has not been cleared or approved by the US Food and Drug Administration. JOSEFA (test code = FASTING:YES JOSEFA) FASTING: YES RAC (test code = Performing RAC) Organization Information: Site ID: T7A Name: [facility] Address: [address] [facility] [place] [address] Director: Fran Brar PH.D, F-AB Lab Abnormal Interpretation (test code = 95068-9) [facility] function [id number] 19:13:00 Test Item Value Reference Range Interpretation Comments Protein (test code = 7.3 g/dL 6.1-8.1 2885-2) Albumin, S (test 4.2 g/dL 3.6-5.1 code = 1750-7) Globulin, total See_Comment [Automated (test code = [...] RAC) Organization Information: Site ID: [facility] Name: [facility] Address: [address] [place] [address] Director: Fran Guajardo Lab Interpretation Abnormal (test code = 67459-1) [facility]2022-06-14 19:13:00 Test Item Value Reference Range Interpretation Comments Magnesium (test code 2.0 mg/dL 1.5-2.5 = 94445-3) JOSEFA (test code = JOSEFA) FASTING:YES FASTING: YES RAC (test code = RAC) Performing Organization Information: Site ID: [facility]GA Name: [facility] Address: [address] [place] [address] Director: Fran Guajardo [facility] with platelet and [id number] 19:13:00 Test Item Value Reference Range Interpretation [...] RAC) Organization Information: Site ID: A Name: [facility] Lab Address: [address] [place] [address] Director: Fran Guajardo Lab Interpretation Abnormal (test code = 98467-1) [facility] [id number] 19:13:00 Test Item Value Reference Range Interpretation Comments INR (test code = Reference R marlo 6301-6) 0.9-1.1Moderate -i ntensity Warfar in Therapy 2.0-3.0Higher-i nt ensity Warfarin Therapy 3.0-4.0 Prothrombin time See_Comment For additio nal (test code = information, 5902-2) please refer tohttp://educat io n.Bump Technologiesdiagne2e [employer]/faq/FAQ10 4( This link is being provided for [...] RAC) Organization Information: Site ID: A Name: [facility] Address: [address] [place] [address] Director: Fran Bolanos CxalftacXY731 Tacrolimus level, [id number] 19:13:00 Test Item Value Reference Range Interpretation Comments Tacrolimus, mcg/L No definitive highly therapeutic or toxic sensitive, ranges have LC/MS/MS beenestablished . (test code = Optimal blood d rug 13730-9) levels are influencedby ty pe of transplant, pat ient response, time post-transplant , co-administrati on of other drugs, an d drug formulation. Th e following troug h range is a suggested guideline: 5.0- 20.0 mcg/L. This macrina t was developed and i ts analytical perf ormance characteristics have been determined by [employer]. It has not been cl eared or approved by theA. This assay has been validated pursu ant to the CLIA regula tions and is used for clinical purpos es. JOSEFA (test FASTING:YES code = JOSEFA) FASTING: YES RAC (test Performing code = RAC) Organization Information: Site ID: IG Name: [facility] Address: [address] [place] [address] Director: Dr. Fran Guajardo [facility] METABOLIC PANEL, [id number] 19:13:00 Test Item Value Reference Interpretation Comments [...] n. EGFR Non-Afr. See_Comment [Automated me ssage] Bangladeshi (test code The syst em which = 7929) generated this result transmit rodrigo reference range : > OR = 60 mL/min/1.73m2. The reference range was not used to interpret this result as normal/abnormal . EGFR See_Comment [Automated mes dhruv] Bangladeshi (test code The syst em which = [...] . Sodium (test code = 139 mmol/L 643-821 4619-2) Potassium (test 4.8 mmol/L 3.4-4.8 code = 2823-3) Chloride (test code 107 mmol/L 98-110 = 2075-0) CO2 (test code = 20 mmol/L 20-32 8-9) Calcium (test code 9.8 mg/dL 8.6-10.3 = 68982-6) JOSEFA (test code = FASTING:YES JOSEFA) FASTING: YES RAC (test code = Performing RAC) Organization Information: Site ID: RGA Name: [facility] Lab Address: [address] [place] [address] Director: Fran Guajardo Lab Interpretation Abnormal (test code = 83591-6) [facility]nePhosphatidylethanol, [id number] 19:13:00 Test Item Value Reference Interpretation Comments Range Phosphatidylethan 600 ng/mL H Reporting Limit: 20 ng/mL ol, blood (test Synonym(s): Phosphatidyl code = 24071-2) Ethanol; PethPhosphatidy lethanol (PEth) is an ethanol-derived [...] and i ts performance characteristics determined by [employer] [facility]. It has not been cleared or approved by the US Food and Drug Administration. JOSEFA (test code = FASTING:YES JOSEFA) FASTING: YES RAC (test code = Performing RAC) Organization Information: Site ID: T7A Name: [facility] Address: [address] [place] [address] Director: Fran Brar PH.D, -[facility] Lab Abnormal Interpretation (test code = 65561-8) [facility] function [id number] 19:13:00 Test Item Value Reference Range Interpretation Comments Protein (test code = 7.3 g/dL 6.1-8.1 2885-2) Albumin, S (test 4.2 g/dL 3.6-5.1 code = 1757) Globulin, total See_Comment [Automated (test code = [...] RAC) Organization Information: Site ID: [facility] Name: [facility] Address: [address] [place] [address] Director: Fran Guajardo Lab Interpretation Abnormal (test code = 62657-4) [facility] [id number] 19:13:00 Test Item Value Reference Range Interpretation Comments Magnesium (test code 2.0 mg/dL 1.5-2.5 = 99989-7) JOSEFA (test code = JOSEFA) FASTING:YES FASTING: YES RAC (test code = RAC) Performing Organization Information: Site ID: RGA Name: [facility] Address: [address] [place] [address] Director: Fran Guajardo [facility] with platelet and vawkhlpfkxsg9388-40-23 19:13:00 Test Item Value Reference Range Interpretation Comments WBC (test code = See_Comment [Automated 6690-2) message] The system which generated this result transmitted reference range : 3.8 - 10.8 Thousand/uL. Th e reference range was not used to interpret this result as normal/abnormal . RBC (test code = See_Comment [Automated 319-8) message] The system which generated this result [...] RAC) Organization Information: Site ID: RGA Name: [facility] Lab Address: [address] [place] [address] Director: Fran Guajardo Lab Interpretation Abnormal (test code = 99355-0) [facility] [id number] 19:13:00 Test Item Value Reference Range Interpretation Comments INR (test code = Reference R marlo 6301-6) 0.9-1.1Moderate -i ntensity Warfar in Therapy 2.0-3.0Higher-i nt ensity Warfarin Therapy 3.0-4.0 Prothrombin time See_Comment For additio nal (test code = information, 5902-2) please refer tohttp://educat io n.Home Team Therapy/faq/FAQ10 4( This link is being provided for [...] RAC) Organization Information: Site ID: RGA Name: [facility] Address: [address] [place] [address] Director: Fran Guajardo [facility] NzampycfPR037 Tacrolimus level, [id number] 19:13:00 Test Item Value Reference Range Interpretation Comments Tacrolimus, mcg/L No definitive highly therapeutic or toxic sensitive, ranges have LC/MS/MS beenestablished . (test code = Optimal blood d rug 16135-9) levels are influencedby ty pe of transplant, pat ient response, time post-transplant , co-administrati on of other drugs, an d drug formulation. Th e following troug h range is a suggested guideline: 5.0- 20.0 mcg/L. This macrina t was developed and i ts analytical perf ormance characteristics have been determined by [employer]. It has not been cl eared or approved by theA. This assay has been validated pursu ant to the CLIA regula tions and is used for clinical purpos es. JOSEFA (test FASTING:YES code = JOSEFA) FASTING: YES RAC (test Performing code = RAC) Organization Information: Site ID: IG Name: [facility] Address: [address] [place] [address] Director: Dr. Fran Guajardo [facility] METABOLIC PANEL, [id number] 19:13:00 Test Item Value Reference Interpretation Comments [...] n. EGFR Non-Afr. See_Comment [Automated me ssage] Bangladeshi (test code The syst em which = 2775) generated this result transmit rodrigo reference range : > OR = 60 mL/min/1.73m2. The reference range was not used to interpret this result as normal/abnormal . EGFR See_Comment [Automated mes dhruv] Bangladeshi (test code The syst em which = [...] . Sodium (test code = 139 mmol/L 354-714 9990-2) Potassium (test 4.8 mmol/L 3.4-4.8 code = 2823-3) Chloride (test code 107 mmol/L 98-110 = 2075-0) CO2 (test code = 20 mmol/L 20-32 8-9) Calcium (test code 9.8 mg/dL 8.6-10.3 = 42152-6) JOSEFA (test code = FASTING:YES JOSEFA) FASTING: YES RAC (test code = Performing RAC) Organization Information: Site ID: RGA Name: [facility] Lab Address: [address] [place] [address] Director: Fran Guajardo Lab Interpretation Abnormal (test code = 96274-8) [facility]ne[facility]osphatidylethanol, [id number] 19:13:00 Test Item Value Reference Interpretation Comments Range Phosphatidylethan 600 ng/mL H Reporting Limit: 20 ng/mL ol, blood (test Synonym(s): Phosphatidyl code = 22179-9) Ethanol; PethPhosphatidy lethanol (PEth) is an ethanol-derived [...] and i ts performance characteristics determined by [employer] [facility]. It has not been cleared or approved by the US Food and Drug Administration. JOSEFA (test code = FASTING:YES JOSEFA) FASTING: YES RAC (test code = Performing RAC) Organization Information: Site ID: T7A Name: [facility] Address: [address] [place] [address] [place] [address] Director: Fran Brar PH.D, F-AB Lab Abnormal Interpretation (test code = 81906-5) [facility] metabolic [id number] 01:17:00 Test Item Value Reference Interpretation Comments Range Glucose (test code 110 mg/dL 65-99 H Fasting reference = 2345-7) interval For so meone without known diabetes, a glu cose valuebetween 10 0 and 125 mg/dL is consistent withprediabetes and should be confi rmed with afollow-up test. BUN (test code = 19 mg/dL 7-25 3094-0) Creatinine (test 2.12 mg/dL 0.70-1.33 H For patient s >49 code = 2160-0) years of age, the reference limit for Creatinine is approximately 1 3% higher for peopleidentifie d as -Leonor n. EGFR Non-Afr. See_Comment L [Automated me ssage] Bangladeshi (test code The syst em which = 0749) generated this result transmit rodrigo reference range : > OR = 60 mL/min/1.73m2. The reference range was not used to interpret this result as normal/abnormal . EGFR See_Comment L [Automated mes dhruv] Bangladeshi (test code The syst em which = 8603) generated this result transmit rodrigo reference range : > OR = 60 mL/min/1.73m2. The reference range was not used to interpret this result as normal/abnormal . BUN/creatinine See_Comment [Automated m essage] ratio (test code = The Grov[employer] epicurio which 3097-3) generated this result transmit rodrigo reference range : 6 - 22 (calc). The reference range was not used to interpret this result as normal/abnormal . Sodium (test code = 138 mmol/L 239-434 9996-2) Potassium (test 4.9 mmol/L 3.5-5.3 code = 2823-3) Chloride (test code 106 mmol/L 98-110 = 2075-0) CO2 (test code = 26 mmol/L 20-32 2028-9) Calcium (test code 8.8 mg/dL 8.6-10.3 = 78514-1) Protein (test code 6.4 g/dL 6.1-8.1 = 2885-2) Albumin, S (test 3.8 g/dL 3.6-5.1 code = 1751-7) Globulin, total See_Comment [Automated message] (test code = The system Storrz h 46582-6) generated this result transmit rodrigo reference range : 1.9 - 3.7 g/dL (jose eduardo c). The reference r marlo was not used to interpret this result as normal/abnormal . Albumin/globulin See_Comment [Automated message] ratio (test code = [employer] which 1759-0) generated this result transmit rodrigo [...] RAC) Organization Information: Site ID: RGA Name: [facility] Address: [address] [place] [address] Director: Fran Guajardo Lab Interpretation Abnormal (test code = 76555-2) [facility]2021-10-14 01:17:00 Test Item Value Reference Range Interpretation Comments Magnesium (test code 2.1 mg/dL 1.5-2.5 = 95520-8) JOSEFA (test code = JOSEFA) FASTING:YES FASTING: YES RAC (test code = RAC) Performing Organization Information: Site ID: [facility] Name: [facility] Address: [address] [place] [address] Director: Fran Guajardo [facility] with platelet and cdhulwsmxqsp5822-01-58 01:17:00 Test Item Value Reference Range Interpretation Comments WBC (test code = See_Comment [Automated 6690-2) message] The system which generated this result transmitted reference range : 3.8 - 10.8 Thousand/uL. Th e reference range was not used to interpret this result as normal/abnormal . RBC (test code = See_Comment [Automated 599-8) message] The system which generated this result [...] [Automated absolute (test code message] The = 711-8) system which generated this result transmitted reference [...] RAC) Organization Information: Site ID: RGA Name: [facility] Address: [address] [place] [address] Director: Fran Guajardo Lab Interpretation Abnormal (test code = 92491-2) [facility]Prothrombin time with [id number] 01:17:00 Test Item Value Reference Range Interpretation Comments INR (test code = Reference R marlo 6301-6) 0.9-1.1Moderate -i ntensity Warfar in Therapy 2.0-3.0Higher-i nt ensity Warfarin Therapy 3.0-4.0 Prothrombin time See_Comment For additio nal (test code = information, 5902-2) please refer tohttp://educat io n.Bump Technologiesdiagnost [employer]/faq/FAQ10 4( This link is being provided for [...] RAC) Organization Information: Site ID: RGA Name: [facility] Address: [address] [place] [address] Director: Fran Guajardo [facility] CleburneFK[facility] Tacrolimus level, [id number] 01:17:00 Test Item Value Reference Range Interpretation Comments Tacrolimus, mcg/L No definitive highly therapeutic or toxic sensitive, ranges have LC/MS/MS beenestablished . (test code = Optimal blood d rug 97399-1) levels are influencedby ty pe of transplant, pat ient response, time post-transplant , co-administrati on of other drugs, an d drug formulation. Th e following troug h range is a suggested guideline: 5.0- 20.0 mcg/L. This macrina t was developed and i ts analytical perf ormance characteristics have been determined by [employer]. It has not been cl eared or approved by theA. This assay has been validated pursu ant to the CLIA regula tions and is used for clinical purpos es. JOSEFA (test FASTING:YES code = JOSEFA) FASTING: YES RAC (test Performing code = RAC) Organization Information: Site ID: IG Name: [facility] Address: [address] [place] [address] Director: Dr. Fran Guajardo [facility]nePhosphatidylethanol, [id number] 22:55:00 Test Item Value Reference Interpretation Comments Range Phosphatidylethan 970 ng/mL H Reporting Limit: 20 ng/mL ol, blood (test Synonym(s): Phosphatidyl code = 63567-0) Ethanol; PET H; PethPhosphatidy lethanol (PEth) is [...] i ts performance characteristics determined by [facility] [facility]. It has not been cleared or approved by the US Food and Drug Administration. JOSEFA (test code = FASTING:YES JOSEFA) FASTING: YES RAC (test code = Performing RAC) Organization Information: Site ID: [id number] Name: [facility] Address: [address] [place] [address] KATHRYN Manjarrez [id number] Director: Fran Brar PH.D, F-AB Lab Abnormal Interpretation (test code = 71930-0) [facility]
--- NOTE | 2023-04-11 15:07 | RAD REPORT ---
EXAM DESCRIPTION: RAD - Chest Single View - 04/11/2023 2:53 pm CLINICAL HISTORY: CONGESTION COMPARISON: Chest Single View dated 04/09/2023; Chest Single View dated 09/11/2021; Chest Single View dated 09/16/2019; Chest Pa And Lat (2 Views) dated 03/18/2018 FINDINGS: Lines: None. Lungs: No evidence of edema or pneumonia. Pleural: No significant pleural effusions or pneumothorax. Cardiac: The heart size is within normal limits. Mediastinum: Within normal limits. Bones: No acute fractures. Other: None IMPRESSION: No acute cardiopulmonary disease.
--- NOTE | 2023-04-11 15:14 | EDPHYS ---
Physician Documentation [facility] Name: Javier Saravia Age: 62 yrs Sex: Male : 1960 Arrival Date: 04/11/2023 Time: 13:09 Bed IW1 Private MD: ED Physician Slim Fuchs HPI: 04/11 15:22 This 62 yrs old Male presents to ER via Ambulatory with complaints of Chest kb Congestion. 13:45 Pt reports cough and congestion for 3 weeks. States he was seen here recently and told kb he had fluid in the lungs. Came in today to get a repeat x-ray to see if it is getting worse. States he doesn't want anything more than an x-ray. States he is a transplant pt and we can't do much for him here so if the fluid has increased he will go to [facility] tomorrow. 15:22 The patient or guardian reports cough, that is intermittent, described as mild, kb congestion. Onset: The symptoms/episode began/occurred last week. Severity of symptoms: At their worst the symptoms were mild, in the emergency department the symptoms are unchanged. Modifying factors: The symptoms are alleviated by nothing, the symptoms are aggravated by nothing. Associated signs and symptoms: The patient has no apparent associated signs or symptoms. The patient has experienced similar episodes in the past, a few times. The patient has been recently seen by a physician:. Historical: - Allergies: 13:45 Iodine; ll1 13:45 Codeine; ll1 - PMHx: 13:45 psoriasis; Hypertension; Cirrhosis; ll1 - PSHx: 13:45 Cholecystectomy; left leg; liver transplant; ll1 - Immunization history:: Adult Immunizations up to date. - Social history:: Smoking status: Patient denies any tobacco usage or history of. ROS: 15:20 Constitutional: Negative for fever, chills, and weight loss, kb 15:20 ENT: Positive for congestion, 15:20 Respiratory: Positive for cough, 15:20 All other systems are negative, Exam: 15:20 Constitutional: This is a well developed, well nourished patient who is awake, alert, kb and in no acute distress. Head/Face: Normocephalic, atraumatic. ENT: Moist Mucous membranes Cardiovascular: Regular rate Respiratory: Respirations even and unlabored. No increased work of breathing. Talking in full sentences Abdomen/GI: Soft, non-tender. No distention Skin: Warm, dry with normal turgor. Normal color. MS/ Extremity: Pulses equal, no cyanosis. Neurovascular intact. Full, normal range of motion. Neuro: Awake and alert, GCS 15, oriented to person, place, time, and situation. Moves all extremities. Normal gait. Vital Signs: 13:44 Pulse 98; Resp 22; Temp 98.8; Pulse Ox 93% ; Weight 112.49 kg; Height 5 ft. 8 in. ; ll1 Pain 0/10; 13:44 BP 154 / 82; ll1 13:44 Body Mass Index 37.71 (112.49 kg, 172.72 cm) ll1 13:44 Pain Scale: Adult ll1 MDM: 13:45 Patient medically screened. kb 15:20 Differential Diagnosis: Other allergic rhinitis, pneumonia, bronchitis, pulmonary kb edema. Data reviewed: vital signs, nurses notes. Test considered but Not performed: Labs: cbc, basic, bnp and trop considered, but pt does not want anything more than a chest x-ray. Counseling: I had a detailed discussion with the patient and/or guardian regarding the historical points, exam findings, and any diagnostic results supporting the discharge/admit diagnosis, radiology results, the need for outpatient follow up, a family practitioner, to return to the emergency department if symptoms worsen or persist or if there are any questions or concerns that arise at home. 04/11 13:44 Order name: Chest Single View XRAY; Complete Time: 15:13 kb Administered Medications: No medications were administered Disposition: 04/12 10:01 Co-signature as Attending Physician, Slim Fuchs MD I reviewed the patient's care rn provided by the Advanced Practice Provider and agree with the diagnosis and treatment plan. Disposition Summary: 04/11/23 15:14 Discharge Ordered Notes: Location: Home kb Condition: Stable kb Diagnosis - Congestion kb Followup: kb - With: Emergency Department - When: As needed - Reason: Worsening of condition Followup: kb - With: Private Physician - When: 2 - 3 days - Reason: Recheck today's complaints, Continuance of care, Re-evaluation by your physician Discharge Instructions: - Discharge Summary Sheet kb - Cough, Adult, [id number] kb Forms: - Medication Reconciliation Form kb - Thank You Letter kb - Antibiotic Education kb - Prescription Opioid Use kb - Patient Portal Instructions kb - Leadership Thank You Letter kb Signatures: Dispatcher [employer] OLGA Yenifer Sheikh, MATTRESS RENOVATOR-C MATTRESS RENOVATOR-Slim Valles MD MD rn Lewis, Lynsay, RN RN ll1 Corrections: (The following items were deleted from the chart) 04/11 15:23 13:45 Pt reports cough and congestion for 3 weeks. States he was seen here recently and kb told he had fluid in the lungs. Came in today to get a repeat x-ray to see if it is getting worse. States he doesn't want anything more than an x-ray. States he is a transplant pt and we can't do much for him here so if the fluid has increased he will go to [facility] tomorrow. kb
--- NOTE | 2023-04-11 15:14 | ER ---
Nurse's Notes [facility] Name: Javier Saravia Age: 62 yrs Sex: Male : 1960 Arrival Date: 04/11/2023 Time: 13:09 Bed IW1 Private MD: Diagnosis: Congestion Presentation: 04/11 13:44 Chief complaint: Patient states: Wants CXR to see if his congestion is getting better. ll1 Coronavirus screen: Client denies travel out of the [place] in the last 14 days. At this time, the client does not indicate any symptoms associated with coronavirus-19. Ebola Screen: Patient denies travel to an Ebola-affected area in the 21 days before illness onset. Initial Sepsis Screen: Does the patient meet any 2 criteria? No. Patient's initial sepsis screen is negative. Does the patient have a suspected source of infection? No. Patient's initial sepsis screen is negative. Risk Assessment: Do you want to hurt yourself or someone else? Patient reports no desire to harm self or others. Onset of symptoms was March 21, 2023. 13:44 Method Of Arrival: Ambulatory ll1 13:44 Acuity: RD 4 ll1 Triage Assessment: 13:44 General: Appears in no apparent distress. Behavior is calm, cooperative, appropriate ll1 for age. Pain: Denies pain. EENT: Reports nasal congestion. Respiratory: Reports cough that is. Historical: - Allergies: 13:45 Iodine; ll1 13:45 Codeine; ll1 - PMHx: 13:45 psoriasis; Hypertension; Cirrhosis; ll1 - PSHx: 13:45 Cholecystectomy; left leg; liver transplant; ll1 - Immunization history:: Adult Immunizations up to date. - Social history:: Smoking status: Patient denies any tobacco usage or history of. Screenin:43 [facility] ED Fall Risk Assessment (Adult) Score/Fall Risk Level 0 - 2 = Low Risk ll1 Oriented to surroundings, Maintained a safe environment, Educated pt \T\ family on fall prevention, incl call for assistance when getting out of bed, Hourly rounding (assess needs \T\ fall precautionary measures) done. Abuse screen: Denies threats or abuse. Nutritional screening: No deficits noted. Tuberculosis screening: No symptoms or risk factors identified. Assessment: 15:43 Reassessment: No changes from previously documented assessment. Patient and/or family ll1 updated on plan of care and expected duration. Pain level reassessed. Patient is alert, oriented x 3, equal unlabored respirations, skin warm/dry/pink. Vital Signs: 13:44 Pulse 98; Resp 22; Temp 98.8; Pulse Ox 93% ; Weight 112.49 kg; Height 5 ft. 8 in. ; ll1 Pain 0/10; 13:44 BP 154 / 82; ll1 13:44 Body Mass Index 37.71 (112.49 kg, 172.72 cm) ll1 13:44 Pain Scale: Adult ll1 ED Course: 13:13 Patient arrived in ED. ts1 13:31 Yenifer Sheikh FNP-C is [facility]. kb 13:31 Slim Fuchs MD is Attending Physician. kb 13:45 Triage completed. ll1 13:46 Arm band placed on. ll1 14:55 Chest Single View XRAY In Process Unspecified. EDMS 15:43 Provided Education on: n/a. ll1 15:43 Patient has correct armband on for positive identification. Bed in low position. Call ll1 light in reach. Cardiac monitoring not applicable on this patient. 15:43 No provider procedures requiring assistance completed. Patient did not have IV access ll1 during this emergency room visit. Administered Medications: No medications were administered Medication: 15:43 VIS not applicable for this client. ll1 Outcome: 15:14 Discharge ordered by . kb 15:43 Patient left the ED. hb 15:43 Discharged to home ambulatory, ll1 15:43 Condition: stable 15:43 Discharge instructions given to patient, Instructed on discharge instructions, follow up and referral plans. Demonstrated understanding of instructions, follow-up care, Signatures: Dispatcher [employer] EDTN Yenifer Sheikh FNP-C FNP-Ckb Baxter, Heather, RN RN Elida Moore RN RN ll1 Shanita Rojo PAS PAS ts1
== END 2023-04-11 15:43 | disposition home or self-care (01) ==
LOC: ER 13:09
DX: R09.89 Other specified symptoms and signs involving the circulatory and respiratory systems (principal); R05.9 Cough, unspecified; I10 Essential (primary) hypertension; Z88.5 Allergy status to narcotic agent; Z91.048 Other nonmedicinal substance allergy status; Z94.4 Liver transplant status
CPT/HCPCS: 71045; 99282

== ENCOUNTER 2023-10-07 20:07 | Emergency (ER) | payer OTHER ==
--- OUTSIDE RECORDS SUMMARY | 2023-10-07 20:09 | XMS REPORT | Clinical Summary ---
Author Name Unknown Organization [facility] Address [address] [place] [address] Care Team Providers Care Credentialing Assistant Name Role Phone Enrike Beltran MD Unavailable [phone] Social History Tobacco Use Types Packs/Day Years Used Date Smoking Tobacco: Never Assessed Sex and Gender Information Value Date Recorded Sex Assigned at Not on file Gender Identity Not on file Sexual Orientation Not on file Plan of Treatment Not on file Care Teams Credentialing Assistant Relationship Specialty Start Date End Date Enrike Beltran MD [address] [facility] [address] [place] [address] PCP - External Referring Orthopedic Surgery 02/15/19
[2023-10-07] MEDS ORDERED: DIAZEPAM 5 MG TABLET ONE (21:00)
[2023-10-07] MEDS ORDERED: LIDOCAINE 4% PATCH ONE (21:00)
[2023-10-07] MEDS ORDERED: KETOROLAC 30 MG/ML INJ ONE (21:00)
--- NOTE | 2023-10-07 21:40 | RAD REPORT ---
EXAM DESCRIPTION: CTSpine Lumbar Wo Con10/07/2023 9:01 pm CLINICAL HISTORY: Fall with back pain COMPARISON: None TECHNIQUE: Computed axial tomography lumbar spine was obtained with coronal and sagittal reconstruct ion. All CT scans are performed using dose optimization technique as appropriate and may include automated exposure control or mA/KV adjustment according to patient size. FINDINGS: No fracture is seen. Slight posterior subluxation L3 on L4. Mild posterior subluxation L4 on L5 and L5 on S1. Disc space narrowing L5-S1 with vacuum phenomena. IMPRESSION: Negative for a lumbar fracture. If the patient continues to have symptoms to suggest spinal canal pathology MRI would be recommended
--- NOTE | 2023-10-07 22:03 | ER ---
Nurse's Notes [facility] Name: Javier Saravia Age: 62 yrs Sex: Male : 1960 Arrival Date: 10/07/2023 Time: 20:07 Bed 15 Private MD: Diagnosis: Lumbago with sciatica, right side Presentation: 10/06 20:38 Acuity: RD 4 jb4 20:38 Chief complaint: Patient states: I fell 2 weeks ago and am having right hip pain, in jb4 liriano and the pain takes my breath away. 20:38 Coronavirus screen: At this time, the client does not indicate any symptoms associated jb4 with coronavirus-19. Ebola Screen: No symptoms or risks identified at this time. Initial Sepsis Screen: Does the patient meet any 2 criteria? Yes Does the patient have a suspected source of infection? No. Patient's initial sepsis screen is negative. Risk Assessment: Do you want to hurt yourself or someone else? Patient reports no desire to harm self or others. Onset of symptoms was October 07, 2023. Transition of care: patient was not received from another setting of care. 20:38 Method Of Arrival: Ambulatory jb4 Historical: - Allergies: 21:21 Codeine; jb4 21:21 Iodine; jb4 - PMHx: 21:21 Cirrhosis; psoriasis; Hypertension; jb4 - PSHx: 21:21 Cholecystectomy; left leg; liver transplant; jb4 - Immunization history:: Adult Immunizations up to date. - Infectious Disease History:: Denies. - Social history:: Smoking status: Patient denies any tobacco usage or history of. Patient uses alcohol, on a daily basis. Screenin:37 [facility] ED Fall Risk Assessment (Adult) History of falling in the last 3 months, me1 including since admission No falls in past 3 months (0 pts) Confusion or Disorientation No (0 pts) Intoxicated or Sedated No (0 pts) Impaired Gait No (0 pts) Mobility Assist Device Used No (0 pt) Altered Elimination No (0 pt) Score/Fall Risk Level 0 - 2 = Low Risk Maintained a safe environment, Provided non-skid footwear, Hourly rounding (assess needs \T\ fall precautionary measures) done. Abuse screen: Denies threats or abuse. Nutritional screening: No deficits noted. Tuberculosis screening: No symptoms or risk factors identified. Assessment: 20:40 General: Appears uncomfortable, well groomed, well developed, well nourished, Behavior me1 is calm, cooperative, appropriate for age, Reports fell two weeks ago and has right hip pain that hasnt resolved and continues to worsen. pain 9/10. 22:37 Pain: Complains of pain in right hip Pain does not radiate. Pain currently is 9 out of me1 10 on a pain scale. Quality of pain is described as sharp, stabbing, Pain began suddenly, 2 weeks ago Is continuous. Neuro: Level of Consciousness is awake, alert, obeys commands, Oriented to person, place, time, situation, Appropriate for age. Cardiovascular: Capillary refill < 3 seconds Patient's skin is warm and dry. Respiratory: Reports cough that is non-productive, persistent since 3 months ago Airway is patent Respiratory effort is even, unlabored, Respiratory pattern is regular, symmetrical. GI: No signs and/or symptoms were reported involving the gastrointestinal system. : No signs and/or symptoms were reported regarding the genitourinary system. EENT: No signs and/or symptoms were reported regarding the EENT system. Derm: Skin is intact, Skin is pink, warm \T\ dry. Musculoskeletal: Reports pain in right hip. Injury Description: fall two weeks ago. Vital Signs: 20:38 BP 119 / 76; Pulse 86; Resp 20; Temp 98.6(O); Pulse Ox 94% on R/A; Weight 115.67 kg jb4 (R); Height 5 ft. 8 in. (R); 21:00 BP 142 / 77; Pulse 89; Resp 20; Pulse Ox 96% on R/A; me1 22:00 BP 150 / 86; Pulse 77; Resp 18; Temp 98.3(O); Pulse Ox 96% on R/A; me1 20:38 Body Mass Index 38.77 (115.67 kg, 172.72 cm) jb4 ED Course: 20:09 Patient arrived in ED. ra3 20:12 Raymond Tran MD is Attending Physician. ec2 20:38 Triage completed. jb4 20:55 Yuli Doyle, [place] is Primary Nurse. me1 21:02 CT Lumbar Spine Wo Con In Process Unspecified. EDMS 22:05 CXR XRAY In Process Unspecified. EDMS 22:37 Allergy band placed. Bed in low position. Call light in reach. Side rails up X2. me1 Provided Education on: POC. Verbalized understanding. . 22:37 No provider procedures requiring assistance completed. Patient did not have IV access me1 during this emergency room visit. 22:41 Arm band placed on Patient placed in an exam room. me1 Administered Medications: 21:08 Drug: Lidoderm Topical Patch 5 % (700 mg/patch) 1 patches Topical once; leave on for 12 me1 hours; cover most painful area; may cut into smaller pieces {Note: right hip.} Route: Topical; Site: affected area; 22:36 Follow up: Response: No adverse reaction; Pain is decreased me1 21:08 Drug: Diazepam PO 5 mg PO once Route: PO; me1 22:36 Follow up: Response: No adverse reaction; Pain is decreased me1 21:09 Drug: Ketorolac IM 30 mg IM once Route: IM; Site: right gluteus; me1 22:36 Follow up: Response: No adverse reaction; Pain is decreased me1 Medication: 22:37 VIS not applicable for this client. me1 Outcome: 22:02 Discharge ordered by . ec2 22:41 Discharged to home ambulatory, with family, me1 22:41 Condition: stable 22:41 Discharge instructions given to patient, family, Instructed on discharge instructions, follow up and referral plans. medication usage, Demonstrated understanding of instructions, follow-up care, medications, Prescriptions given X 2, 22:42 Patient left the ED. me1 Signatures: Dispatcher [employer] EDNE Tyson Obregon RN RN jb4 Yuli Doyle RN RN me1 Raymond Tran MD MD ec2 Renita Hargrove ra3 Corrections: (The following items were deleted from the chart) 22:40 20:40 General: Appears uncomfortable, well groomed, well developed, well nourished, me1 Behavior is calm, cooperative, appropriate for age, Reports me1
--- NOTE | 2023-10-07 22:03 | EDPHYS ---
Physician Documentation [facility] Name: Javier Saravia Age: 62 yrs Sex: Male : 1960 Arrival Date: 10/07/2023 Time: 20:07 Bed 15 Private MD: ED Physician Raymond Tran HPI: 10/06 20:40 This 62 yrs old Male presents to ER via Unassigned with complaints of Fall ec2 Injury, Hip Pain - Burning sensation. 20:40 Patient arrives today for evaluation of right back pain. Patient with a fall ec2 approximately 2.5 weeks ago. Complaining of numbness in the right buttock area. Denies any red flag symptoms, no new falls, has been taking Tylenol with some improvement in symptoms.. Historical: - Allergies: 21:21 Codeine; jb4 21:21 Iodine; jb4 - PMHx: 21:21 Cirrhosis; psoriasis; Hypertension; jb4 - PSHx: 21:21 Cholecystectomy; left leg; liver transplant; jb4 - Immunization history:: Adult Immunizations up to date. - Infectious Disease History:: Denies. - Social history:: Smoking status: Patient denies any tobacco usage or history of. Patient uses alcohol, on a daily basis. ROS: 20:40 Constitutional: as per hpi ec2 Exam: 20:40 Constitutional: GEN: NAD Head: atraumatic Eyes: EOMI Ears: External ears are ec2 normal. CV: regular rate LUNGS: no respiratory distress ABD: non-distended SKIN: no evidence of rashes MSK: no evidence of trauma, no C/T/L spine TTP, right buttock with TTP, no deformities or crepitus appreciated. NEURO: moves all extremities equally Vital Signs: 20:38 BP 119 / 76; Pulse 86; Resp 20; Temp 98.6(O); Pulse Ox 94% on R/A; Weight 115.67 kg jb4 (R); Height 5 ft. 8 in. (R); 21:00 BP 142 / 77; Pulse 89; Resp 20; Pulse Ox 96% on R/A; me1 22:00 BP 150 / 86; Pulse 77; Resp 18; Temp 98.3(O); Pulse Ox 96% on R/A; me1 20:38 Body Mass Index 38.77 (115.67 kg, 172.72 cm) jb4 MDM: 20:39 Patient medically screened. ec2 20:40 Data reviewed: vital signs. ED course: Patient arrives today for evaluation of a right ec2 buttock pain. Examination markable for well-appearing nontoxic dividual's otherwise in no acute distress with reassuring examination. Will obtain CT of the L-spine to evaluate for bony injury. Suspect sciatica causing patient's symptoms. Will give the patient pain medications while. 21:48 ED course: CT of the L-spine shows no acute traumatic process . ec2 22:00 ED course: Chest x-ray independently reviewed and interpreted by me, shows no acute ec2 intrathoracic process. Patient remains well-appearing no acute distress. Will discharge home. Return precautions given.. 10/06 20:40 Order name: CT Lumbar Spine Wo Con; Complete Time: 22:30 ec2 10/06 21:20 Order name: CXR XRAY; Complete Time: 22:30 ec2 10/06 21:00 Order name: Vital Signs ec2 Administered Medications: 21:08 Drug: Lidoderm Topical Patch 5 % (700 mg/patch) 1 patches Topical once; leave on for 12 me1 hours; cover most painful area; may cut into smaller pieces {Note: right hip.} Route: Topical; Site: affected area; 22:36 Follow up: Response: No adverse reaction; Pain is decreased me1 21:08 Drug: Diazepam PO 5 mg PO once Route: PO; me1 22:36 Follow up: Response: No adverse reaction; Pain is decreased me1 21:09 Drug: Ketorolac IM 30 mg IM once Route: IM; Site: right gluteus; me1 22:36 Follow up: Response: No adverse reaction; Pain is decreased me1 Disposition Summary: 10/07/23 22:02 Discharge Ordered Notes: Location: Home ec2 Condition: Stable ec2 Diagnosis - Lumbago with sciatica, right side ec2 Followup: ec2 - With: Private Physician - When: - Reason: Re-evaluation by your physician Discharge Instructions: - Discharge Summary Sheet ec2 - Sciatica ec2 Forms: - Medication Reconciliation Form ec2 - Thank You Letter ec2 - Antibiotic Education ec2 - Prescription Opioid Use ec2 - Patient Portal Instructions ec2 - Leadership Thank You Letter ec2 Prescriptions: - gabapentin 300 mg Oral capsule - take 1 capsule ORAL route every 12 hours; 30 capsule; Refills: 0, Product ec2 Selection Permitted - methocarbamol 500 mg Oral tablet - take 2 tablets ORAL route 4 times per day; 30 tablet; Refills: 0, Product ec2 Selection Permitted Signatures: Dispatcher [employer]Host Tyson Manzo RN RN jb4 Yuli Doyle RN RN me1 Raymond Tran MD MD ec2
--- NOTE | 2023-10-07 22:23 | RAD REPORT ---
EXAM DESCRIPTION: [place] Single View10/07/2023 10:03 pm CLINICAL HISTORY: cough COMPARISON: 2021 FINDINGS: The lungs appear clear of acute infiltrate. The heart is normal size IMPRESSION: No acute abnormalities displayed
[2023-10-08 08:03] VITALS: BP 119/76; TEMP 98.6; O2SAT 94
== END 2023-10-07 22:42 | disposition home or self-care (01) ==
LOC: ER 20:07
DX: M54.41 Lumbago with sciatica, right side (principal); Z88.5 Allergy status to narcotic agent; Z88.8 Allergy status to other drugs, medicaments and biological substances
CPT/HCPCS: 72131; 71045; 96372; 99284; J2001

== ENCOUNTER 2023-10-20 18:26 | Emergency (ER) | payer OTHER ==
--- OUTSIDE RECORDS SUMMARY | 2023-10-20 18:29 | XMS REPORT | Clinical Summary ---
Author Name Unknown Organization [facility] Address [address] [place] [address] Care Team Providers Care Hub Inventory Specialist Name Role Phone Enrike Beltran MD Unavailable [phone] Social History Tobacco Use Types Packs/Day Years Used Date Smoking Tobacco: Never Assessed Sex and Gender Information Value Date Recorded Sex Assigned at Not on file Gender Identity Not on file Sexual Orientation Not on file Plan of Treatment Not on file Care Teams Hub Inventory Specialist Relationship Specialty Start Date End Date Enrike Beltran MD [address] [facility] [address] [place] [address] PCP - External Referring Orthopedic Surgery 02/15/19
[2023-10-20] MEDS ORDERED: HYDROCODONE/APAP 5/325 MG TAB ONE (19:04)
[2023-10-20] MEDS ORDERED: METHOCARBAMOL 1,000 MG/10 ML VIAL ONE (19:04)
[2023-10-20] MEDS ORDERED: LIDOCAINE 4% PATCH ONE (19:04)
[2023-10-20] MEDS ORDERED: NA CHLORIDE 0.9% 100 ML ONE (19:04)
[2023-10-20 19:16] LABS: Absolute Basophils 0.1 K/uL (0-0.5); Absolute Eosinophils 0.2 K/uL (0-0.5); Absolute Lymphocytes (CBC) 1.1 K/uL (0.7-4.9); Absolute Monocytes 0.8 K/uL (0.1-1.3); Absolute Neutrophil 6.2 K/uL (1.8-8.0); Eosinophils % 2.2 % (0-4.4); Hematocrit 39.3 % (39.6-49.0); Hemoglobin 13.2 g/dL (13.6-17.9); Lymphocytes % 13.1 % (15.3-44.8); MCHC 33.6 g/dL (32.0-36.0); MCV 98.1 fL (80-100); MPV 7.1 fL (7.6-11.3); Neutrophils % 73.7 % (41.7-73.7); Nucleated Red Blood Cells % 0.2 % (0-0); Platelets 215 thou/uL (152-406); RBC Red Blood Cell Count 4.01 M/uL (4.33-5.43); Red Cell Distribution Width 15.1 % (12.1-15.2)
[2023-10-20 19:37] LABS: Albumin 2.8 g/dL (3.4-5.0); Albumin/Globulin Ratio 0.6 (1.1-1.8); Anion Gap 7.9 mEq/L (5.0-15.0); Bilirubin Total 0.4 mg/dL (0.2-1.0); Globulin 4.5 g/dL (2.3-3.5); Potassium 3.9 mEq/L (3.5-5.1); Protein, Total 7.3 g/dL (6.4-8.2); Troponin High Sensitivity 8.7 pg/mL (<58.9)
--- NOTE | 2023-10-20 20:39 | RAD REPORT ---
EXAM DESCRIPTION: CT - Thorax W/ Con CLINICAL HISTORY: Chest pain BLUNT CHEST TRAUMA COMPARISON: Chest Single View dated 10/07/2023 FINDINGS: Moderate subsegmental atelectasis in the right lung base. The left lung is clear. No pleur al thickening or pleural effusion. No pneumothorax. No axillary, mediastinal or hilar adenopathy. Lateral right seventh, eighth ribs are fractured. No pneumothorax. Cholecystectomy. All CT scans are performed using dose optimization technique as appropriate and may include automated exposure control or mA/KV adjustment according to patient size. IMPRESSION: Lateral right seventh and eighth minimally displaced fractures.No pneumothorax. Subsegme ntal atelectasis is seen in the right lung base.
--- NOTE | 2023-10-20 21:27 | ER ---
Nurse's Notes [facility] Name: Javier Saravia Age: 62 yrs Sex: Male : 1960 Arrival Date: 10/20/2023 Time: 18:26 Bed 18 Private MD: Diagnosis: Multiple fractures of ribs, right side;Acute fall at home, right seventh and eighth rib fractures, right lung atelectasis Presentation: 10/19 18:43 Chief complaint: Patient states: i was working in the bathroom, i fell back and hit iw back on right rib, I feel something moving inside, happened last night. Coronavirus screen: At this time, the client does not indicate any symptoms associated with coronavirus-19. Ebola Screen: Patient negative for fever greater than or equal to 101.5 degrees Fahrenheit, and additional compatible Ebola Virus Disease symptoms Patient denies exposure to infectious person. Patient denies travel to an Ebola-affected area in the 21 days before illness onset. No symptoms or risks identified at this time. Initial Sepsis Screen: Does the patient meet any 2 criteria? No. Patient's initial sepsis screen is negative. Does the patient have a suspected source of infection? No. Patient's initial sepsis screen is negative. Risk Assessment: Do you want to hurt yourself or someone else? Patient reports no desire to harm self or others. Onset of symptoms was October 19, 2023. 18:43 Method Of Arrival: Ambulatory iw 18:43 Acuity: RD 3 iw Historical: - Allergies: 18:44 Codeine; iw 18:44 Iodine; iw - PMHx: 18:44 psoriasis; Hypertension; Cirrhosis; iw - PSHx: 18:44 Cholecystectomy; left leg; liver transplant; iw - Immunization history:: Adult Immunizations not up to date. - Infectious Disease History:: Denies. - Social history:: Smoking status: Patient denies any tobacco usage or history of. Screenin:45 [facility] ED Fall Risk Assessment (Adult) History of falling in the last 3 months, mb9 including since admission Yes- single mechanical fall (1 pt) Confusion or Disorientation No (0 pts) Intoxicated or Sedated No (0 pts) Impaired Gait No (0 pts) Mobility Assist Device Used No (0 pt) Altered Elimination No (0 pt) Score/Fall Risk Level 3 or more points = High Risk Oriented to surroundings, Maintained a safe environment, Educated pt \T\ family on fall prevention, incl call for assistance when getting out of bed, Assessed \T\ reinforced patient's understanding of fall precautions, Hourly rounding (assess needs \T\ fall precautionary measures) done. Abuse screen: Denies threats or abuse. Nutritional screening: No deficits noted. Tuberculosis screening: No symptoms or risk factors identified. Assessment: 18:48 General: Appears in no apparent distress. Behavior is calm, cooperative. Pain: mb9 Complains of pain in back Pain radiates to right ribs Quality of pain is described as throbbing, Pain began suddenly. Neuro: Coleman Agitation-Sedation Scale (RASS): 0 - Alert and Calm Level of Consciousness is awake, alert, obeys commands, Oriented to person, place, time, situation, Appropriate for age. Cardiovascular: Patient's skin is warm and dry. Respiratory: Airway is patent Respiratory effort is even, unlabored, Respiratory pattern is regular, symmetrical. GI: Abdomen is round non-distended. : No signs and/or symptoms were reported regarding the genitourinary system. EENT: No signs and/or symptoms were reported regarding the EENT system. Derm: Skin is pink, warm \T\ dry. Derm: Bruising that is dark purple, on back. Musculoskeletal: Range of motion: intact in all extremities. Vital Signs: 18:43 BP 139 / 81; Pulse 85; Resp 21; Temp 98.7; Pulse Ox 94% on R/A; Weight 117.03 kg; iw Height 5 ft. 8 in. ; Pain 10/10; 21:36 BP 143 / 74; Pulse 76; Resp 20; Temp 98; Pulse Ox 97% on R/A; rv 18:43 Body Mass Index 39.23 (117.03 kg, 172.72 cm) iw 18:43 Pain Scale: Adult iw [place] Coma Score: 21:36 Eye Response: spontaneous(4). Motor Response: obeys commands(6). Verbal Response: rv oriented(5). Total: 15. ED Course: 18:32 Patient arrived in ED. mg5 18:44 Triage completed. iw 18:44 Lainey Moran RN is Primary Nurse. mb9 18:44 Arm band placed on. mb9 18:45 Esperanza Crooks MD is Attending Physician. sd2 18:45 Placed in gown. Bed in low position. Call light in reach. Side rails up X 1. Provided mb9 Education on: press call light if needing anything. Client placed on continuous cardiac and pulse oximetry monitoring. NIBP monitoring applied. 18:49 No provider procedures requiring assistance completed. mb9 19:17 EKG done, by ED staff. vk 19:31 Initial lab(s) drawn, by me, sent to lab. Inserted saline lock: 20 gauge in right rv antecubital area, using aseptic technique. Blood collected. 20:26 Thorax W/ Con In Process Unspecified. EDMS 21:03 Attending Physician role handed off by Esperanza Crooks MD sp4 21:03 Devin Jackson MD is Attending Physician. sp4 21:26 Magdaleno Eric MD is Referral Physician. sp4 21:38 IV discontinued, intact, bleeding controlled, No redness/swelling at site. Pressure rv dressing applied. Administered Medications: 19:11 Drug: HYDROcodone-acetaminophen PO 5 mg-325 mg 1 tabs PO once Route: PO; mb9 21:36 Follow up: Response: No adverse reaction rv 19:11 Drug: Lidoderm Topical Patch 5 % (700 mg/patch) 1 patches Topical once; leave on for 12 mb9 hours; cover most painful area; may cut into smaller pieces Route: Topical; Site: affected area; 19:45 Drug: Methocarbamol IVPB 1 grams IVPB once over 1 hrs; (mix in NS 100 mL) Route: IVPB; rv Infused Over: 1 hrs; Site: right antecubital; 21:36 Follow up: Response: No adverse reaction; Marked relief of symptoms; IV Status: rv Completed infusion; IV Intake: 100ml 21:36 Drug: [place] PO 10 mg-325 mg 1 tabs PO once Route: PO; rv 21:36 Follow up: Response: Medication administered at discharge. rv 21:36 Drug: Ibuprofen PO 800 mg PO once Route: PO; rv 21:36 Follow up: Response: Medication administered at discharge. rv Medication: 18:45 VIS not applicable for this client. mb9 Intake: 21:36 IV: 100ml; Total: 100ml. rv Outcome: 21:27 Discharge ordered by . sp4 21:37 Discharged to home ambulatory, with family, rv 21:37 Condition: good 21:37 Discharge instructions given to patient, family, Instructed on discharge instructions, follow up and referral plans. medication usage, Demonstrated understanding of instructions, follow-up care, medications, incentive spirometry Prescriptions given X 2, 21:38 Patient left the ED. rv Signatures: Dispatcher [employer] EDMS Kisha Brantley RN RN iw Connor Quintero RN RN rv Esperanza Crooks MD MD sd2 Lainey Moran RN RN mb9 Devin Jackson MD MD sp4 Chikis Pinto mg5 Elsa Trevizo
--- NOTE | 2023-10-20 21:28 | EDPHYS ---
Physician Documentation [facility] Name: Javier Saravia Age: 62 yrs Sex: Male : 1960 Arrival Date: 10/20/2023 Time: 18:26 Bed 18 Private MD: ED Physician Devin Jackson HPI: 10/19 19:12 This 62 yrs old Male presents to ER via Ambulatory with complaints of Fall sd2 Injury, rib pain. 19:12 62-year-old male presents with chief complaint of right posterior rib pain. He reports sd2 that he had a fall last night where he slipped and fell backwards onto the bathtub. He has noted bruising to the area and has difficulty breathing due to pain. He also reports he has had ongoing congestion in his chest which she normally gets once or twice a year. He denies any other areas of pain or head injury or loss of consciousness. He is currently only on ASA 81 but no blood thinners.. Historical: - Allergies: 18:44 Codeine; iw 18:44 Iodine; iw - PMHx: 18:44 psoriasis; Hypertension; Cirrhosis; iw - PSHx: 18:44 Cholecystectomy; left leg; liver transplant; iw - Immunization history:: Adult Immunizations not up to date. - Infectious Disease History:: Denies. - Social history:: Smoking status: Patient denies any tobacco usage or history of. ROS: 19:12 Constitutional: Negative for fever, chills, and weight loss, Eyes: Negative for injury, sd2 pain, redness, and discharge, Cardiovascular: Negative for chest pain, palpitations, and edema, Respiratory: Positive for shortness of breath, Negative for cough, wheezing. Abdomen/GI: Negative for abdominal pain, nausea, vomiting, diarrhea. MS/Extremity: Negative for injury and deformity, Skin: Negative for injury, rash, and discoloration, Neuro: Negative for headache, numbness and tingling. Exam: 19:12 Constitutional: This is a well developed, well nourished patient who is awake, alert, sd2 and in no acute distress. Head/Face: Normocephalic, atraumatic. Eyes: EOMI, normal conjunctiva bilaterally Neck: Trachea midline, no thyromegaly or masses palpated, and no cervical lymphadenopathy. Supple, full range of motion without nuchal rigidity, or vertebral point tenderness. No Meningismus. Chest/axilla: Normal chest wall appearance and motion. Nontender with no deformity. Cardiovascular: Regular rate and rhythm with a normal S1 and S2. No gallops, murmurs, or rubs. 2+ distal pulses. Respiratory: Lungs have equal breath sounds bilaterally, upper airway congestion noted with some occasional wheezes. No rales, rhonchi or wheezes noted. No increased work of breathing, no retractions or nasal flaring. R posterolateral rib noted to have bruising overlying and associated tenderness. No palpable crepitus. Abdomen/GI: Soft, non-tender, with normal bowel sounds. No guarding or rebound. No evidence of tenderness throughout. Back: No spinal tenderness. No costovertebral tenderness. Full range of motion. Skin: Warm, dry with normal turgor. Normal color with no rashes, no lesions, and no evidence of cellulitis. MS/ Extremity: Pulses equal, no cyanosis. Neurovascular intact. Full, normal range of motion. Psych: Awake, alert, with orientation to person, place and time. Behavior, mood, and affect are within normal limits. Vital Signs: 18:43 BP 139 / 81; Pulse 85; Resp 21; Temp 98.7; Pulse Ox 94% on R/A; Weight 117.03 kg; iw Height 5 ft. 8 in. ; Pain 10/10; 21:36 BP 143 / 74; Pulse 76; Resp 20; Temp 98; Pulse Ox 97% on R/A; rv 18:43 Body Mass Index 39.23 (117.03 kg, 172.72 cm) iw 18:43 Pain Scale: Adult iw [place] Coma Score: 21:36 Eye Response: spontaneous(4). Motor Response: obeys commands(6). Verbal Response: rv oriented(5). Total: 15. MDM: 18:45 Patient medically screened. sd2 19:12 Differential diagnosis: Differential diagnosis includes but is not limited to: sd2 Fracture, contusion, abrasion, closed head injury, pneumothorax, intra-abdominal injury, intracranial hemorrhage, spinal injury among others. Data reviewed: vital signs, nurses notes, lab test result(s), EKG, radiologic studies. Historians other than the Patient: Spouse/Significant Other: at bedside. Care significantly affected by the following chronic conditions: Hypertension. 21:30 Differential diagnosis: abrasion, closed head injury, contusion, fracture, laceration, sp4 multiple trauma, sprain, strain. ED course: Patient prescribed hydrocodone 10 =325 1 tablet every 6 hours as needed pain total of 20 tabs.. Patient also prescribed ibuprofen as needed pain. Patient has a rib 7 and 8 fracture with minimal displacement.. There is no pneumothorax. Patient stable for discharge home with incentive spirometer.. 10/19 19:00 Order name: CBC with Diff; Complete Time: 19:40 sd2 10/19 19:00 Order name: CMP; Complete Time: 19:40 sd2 10/19 19:01 Order name: Troponin High Sensitivity; Complete Time: 19:40 sd2 10/19 19:21 Order name: Thorax W/ Con; Complete Time: 20:53 EDMS 10/19 19:01 Order name: EKG - Nurse/Tech; Complete Time: 19:17 sd2 Administered Medications: 19:11 Drug: HYDROcodone-acetaminophen PO 5 mg-325 mg 1 tabs PO once Route: PO; mb9 21:36 Follow up: Response: No adverse reaction rv 19:11 Drug: Lidoderm Topical Patch 5 % (700 mg/patch) 1 patches Topical once; leave on for 12 mb9 hours; cover most painful area; may cut into smaller pieces Route: Topical; Site: affected area; 19:45 Drug: Methocarbamol IVPB 1 grams IVPB once over 1 hrs; (mix in NS 100 mL) Route: IVPB; rv Infused Over: 1 hrs; Site: right antecubital; 21:36 Follow up: Response: No adverse reaction; Marked relief of symptoms; IV Status: rv Completed infusion; IV Intake: 100ml 21:36 Drug: [place] PO 10 mg-325 mg 1 tabs PO once Route: PO; rv 21:36 Follow up: Response: Medication administered at discharge. rv 21:36 Drug: Ibuprofen PO 800 mg PO once Route: PO; rv 21:36 Follow up: Response: Medication administered at discharge. rv Disposition Summary: 10/20/23 21:27 Discharge Ordered Notes: Location: Home sp4 Problem: new sp4 Symptoms: have improved sp4 Condition: Stable sp4 Diagnosis - Multiple fractures of ribs, right side sp4 - Acute fall at home, right seventh and eighth rib fractures, right lung atelectasis sp4 Followup: sp4 - With: Magdaleno Eric MD - When: 7 - 10 days - Reason: Recheck today's complaints Discharge Instructions: - Discharge Summary Sheet sp4 - How to Use an Incentive Spirometer sp4 Forms: - Prescription Opioid Use sp4 Prescriptions: - Ibuprofen 600 mg Oral Tablet - take 1 tablet ORAL route every 6 hours As needed take with food; 30 tablet; sp4 Refills: 0, Product Selection Permitted Signatures: Dispatcher [employer] EDKisha Cortés, RN Connor Patel RN Esperanza Snider MD MD sd2 Lainey Moran RN RN mb9 Devin Jackson MD MD sp4 Corrections: (The following items were deleted from the chart) 19:01 19:01 Troponin High Sensitivity+C.LAB.BRZ ordered. EDMS EDMS 19:05 19:00 Thorax W/ Con+CT.RAD.BRZ ordered. EDMS EDMS 19:21 19:05 Thorax Wo Con ordered. EDMS EDMS
[2023-10-20] MEDS ORDERED: IBUPROFEN 400 MG TAB ONE (21:31)
[2023-10-20] MEDS ORDERED: HYDROCODONE/APAP 10/325 TAB ONE (21:31)
[2023-10-20 22:30] VITALS: BP 143/74; TEMP 98; O2SAT 97
--- NOTE | 2023-10-22 14:41 | EKG ---
Test Date: 2023-10-20 Test Time: 19:14:36 Spring Repairer Helper Hand: PATRICIA MEASUREMENT RESULTS: Intervals: Rate: 76 VT: 154 QRSD: 92 QT: 380 QTc: 427 Powell: P: 28 VT: 154 QRS: 37 T: 44 INTERPRETIVE STATEMENTS: Normal sinus rhythm Low voltage QRS Borderline ECG Compared to ECG 06/07/2023 09:07:49 Myocardial infarct finding no longer present Electronically Signed On 10-22-23 14:38:45 CDT by Jeremy Eubanks
== END 2023-10-20 21:38 | disposition home or self-care (01) ==
LOC: ER 18:26
DX: S22.41XA Multiple fractures of ribs, right side, initial encounter for closed fracture (principal); J98.11 Atelectasis; W01.0XXA Fall on same level from slipping, tripping and stumbling without subsequent striking against object, initial encounter; Z94.4 Liver transplant status; Z88.5 Allergy status to narcotic agent; Z91.048 Other nonmedicinal substance allergy status
CPT/HCPCS: 85025; 36415; 84484; 80053; 71260; Q9967; J2001; J2800; 93005; 96365; 96366; 99285

== ENCOUNTER 2023-12-12 18:49 | Emergency (ER) | payer OTHER ==
--- OUTSIDE RECORDS SUMMARY | 2023-12-12 18:51 | XMS REPORT | Clinical Summary ---
Author Name Unknown Organization [facility] Address [address] [place] [address] Care Team Providers Care Electric Drill Operator Name Role Phone Enrike Beltran MD Unavailable [phone] Social History Tobacco Use Types Packs/Day Years Used Date Smoking Tobacco: Never Assessed Sex and Gender Information Value Date Recorded Sex Assigned at Not on file Gender Identity Not on file Sexual Orientation Not on file Plan of Treatment Not on file Care Teams Electric Drill Operator Relationship Specialty Start Date End Date Enrike Beltran MD [address] [facility] [address] [place] [address] PCP - External Referring Orthopedic Surgery 02/15/19
[2023-12-12] MEDS ORDERED: KETOROLAC 30 MG/ML INJ ONE (20:37)
[2023-12-12] MEDS ORDERED: dexAMETHasone 10 MG/ML VIAL ONE (20:37)
--- NOTE | 2023-12-12 20:44 | EDPHYS ---
Physician Documentation [facility] Name: Javier Saravia Age: 63 yrs Sex: Male : 1960 Arrival Date: 12/12/2023 Time: 18:49 Bed 10 Private MD: ED Physician Raymond Tran HPI: 12/11 20:30 This 63 yrs old Male presents to ER via Ambulatory with complaints of Back cp Pain. 20:30 The patient presents with pain that is acute, with no known mechanism of injury. The cp symptoms are located in the right low back and right buttock. 20:30 Onset: The symptoms/episode began/occurred 2 week(s) ago. cp 20:30 The pain radiates to the right leg. Associated signs and symptoms: Pertinent negatives: cp abdominal pain, chest pain, constipation, dysuria, fever, incontinence, numbness, urinary retention, weakness. The problem was sustained from unknown cause. Modifying factors: the patient symptoms are aggravated by bending, movement, standing. Historical: - Allergies: 19:11 No Known Allergies; ll1 - PMHx: 19:11 Cirrhosis; Hypertension; psoriasis; ll1 - PSHx: 19:11 Cholecystectomy; left leg; liver transplant; ll1 - Immunization history:: Adult Immunizations. - Infectious Disease History:: Denies. - Social history:: Smoking status: Patient denies any tobacco usage or history of. ROS: 20:35 Back: Positive for pain at rest, pain with movement, of the right low back and right cp buttock, Negative for injury or acute deformity, 20:35 Constitutional: Negative for body aches, chills, fever, poor PO intake, cp 20:35 Cardiovascular: Negative for chest pain, 20:35 Eyes: Negative for injury, pain, redness, and discharge, cp 20:35 ENT: Negative for drainage from ear(s), ear pain, sore throat, difficulty swallowing, difficulty handling secretions, 20:35 Respiratory: Negative for cough, shortness of breath, wheezing, 20:35 Abdomen/GI: Negative for abdominal pain, vomiting, diarrhea, constipation, abdominal distension, bowel incontinence, 20:35 : Negative for urinary symptoms, hematuria, difficulty urinating, bladder incontinence, testicular pain 20:35 Neuro: Negative for altered mental status, dizziness, headache, numbness, tingling, weakness, 20:35 All other systems are negative, Exam: 20:40 Constitutional: The patient appears in no acute distress, alert, awake, cp non-diaphoretic, non-toxic, well developed, well nourished, obese, uncomfortable, 20:40 Head/Face: Normocephalic, atraumatic. cp 20:40 Chest/axilla: Inspection: normal, 20:40 Cardiovascular: Rate: normal, Edema: is not appreciated, JVD: is not appreciated, 20:40 Respiratory: the patient does not display signs of respiratory distress, Respirations: normal, no use of accessory muscles, no retractions, labored breathing, is not present, 20:40 Abdomen/GI: Inspection: abdomen appears normal, Palpation: abdomen is soft and non-tender, in all quadrants, 20:40 Back: pain, that is moderate, of the right low back and right buttock, ROM is painful, cp with all movement, vertebral tenderness, is not appreciated, 20:40 Neuro: Motor: moves all fours, no focal deficits, Sensation: no obvious gross deficits, Gait: is steady, Deep tendon reflexes are 2+ (normal) in the right patellar, right Achilles, left patellar and left Achilles, Vital Signs: 19:12 BP 141 / 71; Pulse 81; Resp 17; Pulse Ox 95% ; Weight 117.03 kg; Height 5 ft. 8 in. ; ll1 Pain 10/10; 20:56 BP 138 / 91; Pulse 43; Resp 17; Temp 98.2; Pulse Ox 95% on R/A; al5 19:12 Body Mass Index 39.23 (117.03 kg, 172.72 cm) ll1 19:12 Pain Scale: Adult ll1 MDM: 19:31 Patient medically screened. cp 20:30 Differential diagnosis: chronic back pain, Pyelonephritis ruptured disc, cp Ureterolithiasis spinal stenosis, cauda equina, sciatica. 20:43 Data reviewed: vital signs, nurses notes, and as a result, I will discharge patient. cp 20:43 I considered the following discharge prescriptions or medication management in the emergency department Medications were administered in the Emergency Department. See MAR. Counseling: I had a detailed discussion with the patient and/or guardian regarding the historical points, exam findings, and any diagnostic results supporting the discharge/admit diagnosis, the need for outpatient follow up, a family practitioner, to return to the emergency department if symptoms worsen or persist or if there are any questions or concerns that arise at home. Response to treatment: the patient's symptoms have mildly improved after treatment, and as a result, I will discharge patient. Administered Medications: 20:37 Not Given (Patient Refused): morphine6 mg IM once; may give if patient has ride al5 20:43 Drug: Dexamethasone IM 10 mg IM once Route: IM; Site: left deltoid; al5 20:57 Follow up: Response: No adverse reaction al5 20:44 Drug: Ketorolac IM 30 mg IM once Route: IM; Site: left deltoid; al5 20:57 Follow up: Response: No adverse reaction al5 Disposition Summary: 12/12/23 20:43 Discharge Ordered Notes: Location: Home cp Problem: an acute exacerbation cp Symptoms: have improved cp Condition: Stable cp Diagnosis - Lumbago with sciatica, right side cp Followup: cp - With: Private Physician - When: 2 - 3 days - Reason: Recheck today's complaints Discharge Instructions: - Discharge Summary Sheet cp - Sciatica cp - Back Exercises cp Forms: - Medication Reconciliation Form cp - Antibiotic Education cp - Prescription Opioid Use cp - Patient Portal Instructions cp - Leadership Thank You Letter cp Prescriptions: - Diclofenac Sodium 75 mg Oral Tablet Sustained Release - take 1 tablet ORAL route 2 times per day; 30 tablet; Refills: 0, Product cp Selection Permitted - Medrol (Jun) 4 mg Oral Tablets, Dose Pack - take 1 tablet ORAL route as directed - follow package instructions; 1 packet; cp Refills: 0, Product Selection Permitted - methocarbamol 500 mg Oral tablet - take 2 tablets ORAL route 3 times per day; 30 tablet; Refills: 0, Product cp Selection Permitted Addendum: 12/14/2023 02:11 I was immediately available for consultation during this patient's visit. I did not e c2 personally see the patient or discuss the patient with the JOSE LUIS. . Signatures: Karsten Carlos PA PA cp Lewis, Lynsay, RN RN ll1 Raymond Tran MD MD ec2 Tuyet Jean RN RN al5 Corrections: (The following items were deleted from the chart) 12/11 19:12 19:11 Allergies: Iodine; ll1 ll1 19:12 19:11 Allergies: Codeine; ll1 ll1
--- NOTE | 2023-12-12 20:44 | ER ---
Nurse's Notes [facility] Name: Javier Saravia Age: 63 yrs Sex: Male : 1960 Arrival Date: 12/12/2023 Time: 18:49 Bed 10 Private MD: Diagnosis: Lumbago with sciatica, right side Presentation: 12/11 19:12 Chief complaint: Patient states: R lower back pain and R buttocks pain for 2 weeks. ll1 Coronavirus screen: Client denies travel out of the [place] in the last 14 days. At this time, the client does not indicate any symptoms associated with coronavirus-19. Ebola Screen: Patient denies travel to an Ebola-affected area in the 21 days before illness onset. Initial Sepsis Screen: Does the patient meet any 2 criteria? No. Patient's initial sepsis screen is negative. Does the patient have a suspected source of infection? No. Patient's initial sepsis screen is negative. Risk Assessment: Do you want to hurt yourself or someone else? Patient reports no desire to harm self or others. Onset of symptoms was November 28, 2023. 19:12 Method Of Arrival: Ambulatory ll1 19:12 Acuity: RD 3 ll1 Triage Assessment: 19:12 General: Appears uncomfortable, Behavior is calm, cooperative, appropriate for age. ll1 Pain: Complains of pain in back Pain radiates to R buttocks. Musculoskeletal: Reports pain in back. Historical: - Allergies: 19:11 No Known Allergies; ll1 - PMHx: 19:11 Cirrhosis; Hypertension; psoriasis; ll1 - PSHx: 19:11 Cholecystectomy; left leg; liver transplant; ll1 - Immunization history:: Adult Immunizations. - Infectious Disease History:: Denies. - Social history:: Smoking status: Patient denies any tobacco usage or history of. Screenin:44 [facility] ED Fall Risk Assessment (Adult) History of falling in the last 3 months, al5 including since admission No falls in past 3 months (0 pts) Confusion or Disorientation No (0 pts) Intoxicated or Sedated No (0 pts) Impaired Gait No (0 pts) Mobility Assist Device Used No (0 pt) Altered Elimination No (0 pt). [facility] ED Fall Risk Assessment (Adult) Score/Fall Risk Level 0 - 2 = Low Risk Oriented to surroundings, Maintained a safe environment, Hourly rounding (assess needs \T\ fall precautionary measures) done. Abuse screen: Denies threats or abuse. Denies injuries from another. Nutritional screening: No deficits noted. Tuberculosis screening: No symptoms or risk factors identified. Assessment: 20:20 General: Appears in no apparent distress. Behavior is calm, cooperative. Pain: al5 Complains of pain in right flank and right low back. Neuro: Level of Consciousness is awake, alert, obeys commands, Oriented to person, place, time, situation, Gait is steady, Speech is normal, Facial symmetry appears normal. Cardiovascular: No deficits noted. Patient's skin is warm and dry. Respiratory: No deficits noted. Airway is patent Trachea midline Respiratory effort is even, unlabored, Respiratory pattern is regular, symmetrical. Derm: No deficits noted. Skin is intact, Skin is pink, warm \T\ dry. normal, Skin temperature is warm. Musculoskeletal:. Musculoskeletal: Reports pain in right flank and right low back Pain is 8 out of 10 on a pain scale. 20:44 General: Pt pending d/c due to being on shot time.. cm10 Vital Signs: 19:12 BP 141 / 71; Pulse 81; Resp 17; Pulse Ox 95% ; Weight 117.03 kg; Height 5 ft. 8 in. ; ll1 Pain 10/10; 20:56 BP 138 / 91; Pulse 43; Resp 17; Temp 98.2; Pulse Ox 95% on R/A; al5 19:12 Body Mass Index 39.23 (117.03 kg, 172.72 cm) ll1 19:12 Pain Scale: Adult ll1 ED Course: 18:55 Patient arrived in ED. mg5 19:13 Triage completed. ll1 19:13 Arm band placed on. ll1 19:29 Karsten Carlos PA is PHCP. cp 19:29 Raymond Tran MD is Attending Physician. cp 20:37 Tuyet Jean, [place] is Primary Nurse. al5 20:45 Patient has correct armband on for positive identification. Bed in low position. Call al5 light in reach. Provided Education on: medications, discharge education.. 20:45 No provider procedures requiring assistance completed. Patient did not have IV access al5 during this emergency room visit. Administered Medications: 20:37 Not Given (Patient Refused): morphine6 mg IM once; may give if patient has ride al5 20:43 Drug: Dexamethasone IM 10 mg IM once Route: IM; Site: left deltoid; al5 20:57 Follow up: Response: No adverse reaction al5 20:44 Drug: Ketorolac IM 30 mg IM once Route: IM; Site: left deltoid; al5 20:57 Follow up: Response: No adverse reaction al5 Medication: 20:47 VIS not applicable for this client. al5 Outcome: 20:43 Discharge ordered by . shahla 21:00 Discharged to home ambulatory, al5 21:00 Condition: stable 21:00 Discharge instructions given to patient, Instructed on discharge instructions, follow up and referral plans. medication usage, Demonstrated understanding of instructions, follow-up care, medications, 21:01 Patient left the ED. al5 Signatures: Karsten Carlos PA PA cp Lewis, Lynsay RN RN ll1 Nasreen Saravia RN RN cm10 Chikis Pinto mg5 Tuyet Jean RN RN al5 Corrections: (The following items were deleted from the chart) 19:12 19:11 Allergies: Iodine; ll1 ll1 19:12 19:11 Allergies: Codeine; ll1 ll1
[2023-12-13 05:07] VITALS: BP 138/91; TEMP 98.2; O2SAT 95
== END 2023-12-12 21:01 | disposition home or self-care (01) ==
LOC: ER 18:49
DX: M54.41 Lumbago with sciatica, right side (principal)
CPT/HCPCS: 96372; 99284; J1100

== ENCOUNTER 2023-12-13 02:08 | Emergency (ER) | payer OTHER ==
[~2023-12-13 02:08] MED LIST: CEFTRIAXONE 1000 MG/VIAL ONE; METRONIDAZOLE 500mg IVPB 500 MG/100 ML BAG IV ONE; NA CHLORIDE 0.9% 50 ML ONE
--- OUTSIDE RECORDS SUMMARY | 2023-12-13 02:11 | XMS REPORT | Clinical Summary ---
Author Name Unknown Organization [facility] Address [address] [place] [address] Care Team Providers Care Registered Vascular Technologist (Rvt) Name Role Phone Enrike Beltran MD Unavailable [phone] Social History Tobacco Use Types Packs/Day Years Used Date Smoking Tobacco: Never Assessed Sex and Gender Information Value Date Recorded Sex Assigned at Not on file Gender Identity Not on file Sexual Orientation Not on file Plan of Treatment Not on file Care Teams Registered Vascular Technologist (Rvt) Relationship Specialty Start Date End Date Enrike Beltran MD [address] [facility] [address] [place] [address] PCP - External Referring Orthopedic Surgery 02/15/19
[2023-12-13] MEDS ORDERED: predniSONE 20 MG TAB ONE (02:56)
[2023-12-13] MEDS ORDERED: ACETAMINOPHEN 500 MG TAB ONE (02:56)
[2023-12-13] MEDS ORDERED: MORPHINE 4 MG/ML SYR ONE (02:56)
[2023-12-13] MEDS ORDERED: KETOROLAC 30 MG/ML INJ ONE (02:56)
[2023-12-13] MEDS ORDERED: LIDOCAINE 4% PATCH ONE (02:57)
--- NOTE | 2023-12-13 08:59 | EDPHYS ---
Physician Documentation [facility] Name: Javier Saravia Age: 63 yrs Sex: Male : 1960 Arrival Date: 12/13/2023 Time: 02:08 Bed 5 Private MD: Ernie Eric C ED Physician Raymond Tran HPI: 12/12 02:41 This 63 yrs old Male presents to ER via Unassigned with complaints of Back ec2 Pain. 02:49 Patient complaining of low back pain, right low back pain rating to the right leg. No ec2 falls injuries or trauma. Historical: - Allergies: 02:47 No Known Allergies; lg3 - PMHx: 02:47 Cirrhosis; Hypertension; psoriasis; lg3 - PSHx: 02:47 Cholecystectomy; left leg; liver transplant; lg3 - Immunization history:: Adult Immunizations up to date. - Infectious Disease History:: Denies. - Social history:: Smoking status: Patient denies any tobacco usage or history of. Patient uses alcohol, occasionally. ROS: 02:49 Constitutional: as per hpi ec2 Exam: 02:49 Constitutional: GEN: NAD Head: atraumatic Eyes: EOMI Ears: External ears are ec2 normal. CV: regular rate LUNGS: no respiratory distress ABD: non-distended SKIN: no evidence of rashes MSK: no evidence of trauma, right paraspinal TTP, no deformities, no crepitus, positive right-sided straight leg raise test. Intact strength in bilateral lower extremities. NEURO: moves all extremities equally Vital Signs: 02:46 BP 150 / 86; Pulse 77; Resp 17 S; Temp 97.8(O); Pulse Ox 98% on R/A; Weight 116.12 kg lg3 (R); Height 5 ft. 8 in. (R); Pain 10/10; 03:28 BP 146 / 85; Pulse 74; Resp 17 S; Temp 97.6(O); Pulse Ox 99% on R/A; lg3 02:46 Body Mass Index 38.92 (116.12 kg, 172.72 cm) lg3 02:46 Pain Scale: Adult lg3 MDM: 02:30 Patient medically screened. ec2 02:49 Data reviewed: vital signs. ED course: Patient arrives today for evaluation of low back ec2 pain. Examination markable for MSK findings as above. Will give the patient medications for symptoms and have him follow-up with primary care doctor. Suspect sciatica. Patient given prescription for Robaxin earlier tonight. Patient otherwise without any red flag symptoms to warrant obtaining an MRI of the lumbar spine. Doubt spinal cord pathology, doubt bony fracture given lack of mechanism.. Administered Medications: 03:04 Drug: morphine IM 4 mg IM once Route: IM; Site: right gluteus; lg3 03:28 Follow up: Response: No adverse reaction lg3 03:04 Drug: Ketorolac IM 30 mg IM once Route: IM; Site: left gluteus; lg3 03:28 Follow up: Response: No adverse reaction lg3 03:04 Drug: predniSONE PO 40 mg PO once Route: PO; lg3 03:28 Follow up: Response: No adverse reaction lg3 03:04 Drug: Acetaminophen PO 1000 mg PO once Route: PO; lg3 03:27 Follow up: Response: No adverse reaction lg3 03:04 Drug: Lidoderm Topical Patch 5 % (700 mg/patch) 1 patches Topical once; leave on for 12 lg3 hours; cover most painful area; may cut into smaller pieces Route: Topical; Site: affected area; 03:27 Follow up: Response: No adverse reaction lg3 Disposition Summary: 12/13/23 03:13 Discharge Ordered Notes: Location: Home ec2 Condition: Stable ec2 Diagnosis - Sciatica, right side ec2 Followup: ec2 - With: Private Physician - When: - Reason: Re-evaluation by your physician Discharge Instructions: - Discharge Summary Sheet ec2 - Sciatica ec2 Forms: - Medication Reconciliation Form ec2 - Antibiotic Education ec2 - Prescription Opioid Use ec2 - Patient Portal Instructions ec2 - Leadership Thank You Letter ec2 Signatures: Karina Bonilla RN RN lg3 Raymond Tran MD MD ec2
--- NOTE | 2023-12-13 08:59 | ER ---
Nurse's Notes [facility] Name: Javier Saravia Age: 63 yrs Sex: Male : 1960 Arrival Date: 12/13/2023 Time: 02:08 Bed 5 Private MD: Ernie Eric C Diagnosis: Sciatica, right side Presentation: 12/12 02:46 Chief complaint: Patient states: right sided lower back pain. Coronavirus screen: lg3 Client denies travel out of the [place] in the last 14 days. At this time, the client does not indicate any symptoms associated with coronavirus-19. Ebola Screen: No symptoms or risks identified at this time. Initial Sepsis Screen: Does the patient meet any 2 criteria? No. Patient's initial sepsis screen is negative. Does the patient have a suspected source of infection? No. Patient's initial sepsis screen is negative. Risk Assessment: Do you want to hurt yourself or someone else? Patient reports no desire to harm self or others. Onset of symptoms is unknown. 02:46 Method Of Arrival: Wheelchair lg3 02:46 Acuity: RD 4 lg3 Triage Assessment: 02:47 General: Appears in no apparent distress. uncomfortable, Behavior is calm, cooperative. lg3 Pain: Complains of pain in right low back Pain radiates to right gluteus roseanna Pain currently is 10 out of 10 on a pain scale. EENT: No deficits noted. No signs and/or symptoms were reported regarding the EENT system. Neuro: No deficits noted. Coleman Agitation-Sedation Scale (RASS): 0 - Alert and Calm Level of Consciousness is awake, alert, obeys commands, Oriented to person, place, time, situation. Cardiovascular: No deficits noted. Denies chest pain, shortness of breath, Capillary refill < 3 seconds Clubbing of nail beds is absent JVD is absent Patient's skin is warm and dry. Respiratory: No deficits noted. Airway is patent Respiratory effort is even, unlabored, Respiratory pattern is regular, symmetrical. GI: No deficits noted. No signs and/or symptoms were reported involving the gastrointestinal system. Abdomen is round non-distended, obese. : No deficits noted. No signs and/or symptoms were reported regarding the genitourinary system. Derm: No deficits noted. No signs and/or symptoms reported regarding the dermatologic system. Skin is intact, is healthy with good turgor, Skin is dry, Skin is normal, Skin temperature is warm. Musculoskeletal: Circulation, motion, and sensation intact. Range of motion: intact in all extremities, Reports pain in right low back. Historical: - Allergies: 02:47 No Known Allergies; lg3 - PMHx: 02:47 Cirrhosis; Hypertension; psoriasis; lg3 - PSHx: 02:47 Cholecystectomy; left leg; liver transplant; lg3 - Immunization history:: Adult Immunizations up to date. - Infectious Disease History:: Denies. - Social history:: Smoking status: Patient denies any tobacco usage or history of. Patient uses alcohol, occasionally. Screenin:49 [facility] ED Fall Risk Assessment (Adult) History of falling in the last 3 months, lg3 including since admission No falls in past 3 months (0 pts) Confusion or Disorientation No (0 pts) Intoxicated or Sedated No (0 pts) Impaired Gait No (0 pts) Mobility Assist Device Used No (0 pt) Altered Elimination No (0 pt) Score/Fall Risk Level 0 - 2 = Low Risk Oriented to surroundings, Maintained a safe environment, Educated pt \T\ family on fall prevention, incl call for assistance when getting out of bed, Assessed \T\ reinforced patient's understanding of fall precautions. Abuse screen: Denies threats or abuse. Denies injuries from another. Nutritional screening: No deficits noted. Tuberculosis screening: No symptoms or risk factors identified. Assessment: 02:49 General: see triage assessment. Neuro: No deficits noted. Coleman Agitation-Sedation lg3 Scale (RASS): 0 - Alert and Calm Level of Consciousness is awake, alert, obeys commands, Oriented to person, place, time, situation. 03:28 Reassessment: Patient appears in no apparent distress at this time. No changes from lg3 previously documented assessment. Patient and/or family updated on plan of care and expected duration. Pain level reassessed. Patient is alert, oriented x 3, equal unlabored respirations, skin warm/dry/pink. Vital Signs: 02:46 BP 150 / 86; Pulse 77; Resp 17 S; Temp 97.8(O); Pulse Ox 98% on R/A; Weight 116.12 kg lg3 (R); Height 5 ft. 8 in. (R); Pain 10/10; 03:28 BP 146 / 85; Pulse 74; Resp 17 S; Temp 97.6(O); Pulse Ox 99% on R/A; lg3 02:46 Body Mass Index 38.92 (116.12 kg, 172.72 cm) lg3 02:46 Pain Scale: Adult lg3 ED Course: 02:12 Patient arrived in ED. gm2 02:12 Ernie Eric MD is Private Physician. gm2 02:14 Raymond Tran MD is Attending Physician. ec2 02:46 Karina Bonilla RN is Primary Nurse. lg3 02:47 Triage completed. lg3 02:47 Arm band placed on right wrist. lg3 02:49 Patient has correct armband on for positive identification. Placed in gown. Bed in low lg3 position. Call light in reach. Side rails up X 1. Client placed on continuous cardiac and pulse oximetry monitoring. NIBP monitoring applied. Door closed. Noise minimized. Warm blanket given. Pillow given. 03:28 No provider procedures requiring assistance completed. Patient did not have IV access lg3 during this emergency room visit. Administered Medications: 03:04 Drug: morphine IM 4 mg IM once Route: IM; Site: right gluteus; lg3 03:28 Follow up: Response: No adverse reaction lg3 03:04 Drug: Ketorolac IM 30 mg IM once Route: IM; Site: left gluteus; lg3 03:28 Follow up: Response: No adverse reaction lg3 03:04 Drug: predniSONE PO 40 mg PO once Route: PO; lg3 03:28 Follow up: Response: No adverse reaction lg3 03:04 Drug: Acetaminophen PO 1000 mg PO once Route: PO; lg3 03:27 Follow up: Response: No adverse reaction lg3 03:04 Drug: Lidoderm Topical Patch 5 % (700 mg/patch) 1 patches Topical once; leave on for 12 lg3 hours; cover most painful area; may cut into smaller pieces Route: Topical; Site: affected area; 03:27 Follow up: Response: No adverse reaction lg3 Medication: 03:29 VIS not applicable for this client. lg3 Outcome: 03:13 Discharge ordered by . ec2 03:28 Discharged to home ambulatory, lg3 03:28 Condition: stable 03:28 Discharge instructions given to patient, Instructed on discharge instructions, follow up and referral plans. Demonstrated understanding of instructions, follow-up care, 03:29 Patient left the ED. lg3 Signatures: Karina Bonilla RN RN lg3 Raymond Tran MD MD 2 Aminah Chamberlain 2
[2023-12-13 15:56] VITALS: BP 146/85; TEMP 97.6; O2SAT 99
== END 2023-12-13 03:29 | disposition home or self-care (01) ==
LOC: ER 02:08
DX: M54.31 Sciatica, right side (principal)
CPT/HCPCS: J7512; J2001

== ENCOUNTER 2024-03-25 14:14 | Emergency (ER) | payer OTHER ==
--- OUTSIDE RECORDS SUMMARY | 2024-03-25 14:17 | XMS REPORT | Clinical Summary ---
Author Name Unknown Organization [facility] Address [address] [place] [address] Care Team Providers Care Gold Blower Name Role Phone Enrike Beltran MD Unavailable [phone] Social History Tobacco Use Types Packs/Day Years Used Date Smoking Tobacco: Never Assessed Sex and Gender Information Value Date Recorded Sex Assigned at Not on file Gender Identity Not on file Sexual Orientation Not on file Plan of Treatment Not on file Care Teams Gold Blower Relationship Specialty Start Date End Date Enrike Beltran MD [address] [facility] [address] [place] [address] PCP - External Referring Orthopedic Surgery 02/15/19
--- NOTE | 2024-03-25 14:48 | EDPHYS ---
Physician Documentation [facility] Name: Javier Saravia Age: 63 yrs Sex: Male : 1960 Arrival Date: 03/25/2024 Time: 14:14 Bed 6 Private MD: ED Physician Emil Barber HPI: 03/25 16:05 This 63 yrs old Male presents to ER via Ambulatory with complaints of Rash. rt 16:05 Patient presents to the ED with about 4 days of a burning sensation to his left mid rt back. Patient states that he developed a rash about 2 days ago at that area, states that he is concerned that he has shingles. Denies other symptoms, acute complaints, symptoms are moderate in severity, no other aggravating or alleviating factors.. Historical: - Allergies: 14:20 No Known Allergies; iw - PMHx: 14:20 Cirrhosis; Hypertension; psoriasis; iw - PSHx: 14:20 liver transplant; left leg; Cholecystectomy; iw - Immunization history:: Adult Immunizations unknown. - Infectious Disease History:: Denies. - Family history:: not pertinent. - Social history:: Smoking status: Patient denies any tobacco usage or history of. ROS: 16:05 Constitutional: Negative for fever, chills, and weight loss, Cardiovascular: Negative rt for chest pain, palpitations, and edema, Respiratory: Negative for shortness of breath, cough, wheezing, and pleuritic chest pain, Abdomen/GI: Negative for abdominal pain, nausea, vomiting, diarrhea, and constipation, Neuro: Negative for headache, weakness, numbness, tingling, and seizure, 16:05 Skin: Positive for rash, Negative for abrasions, Exam: 16:05 Constitutional: This is a well developed, well nourished patient who is awake, alert, rt and in no acute distress. Head/Face: Normocephalic, atraumatic. Neuro: Awake and alert, GCS 15, oriented to person, place, time, and situation. Cranial nerves II-XII grossly intact. Motor strength 5/5 in all extremities. Sensory grossly intact. Cerebellar exam normal. Normal gait. Psych: Awake, alert, with orientation to person, place and time. Behavior, mood, and affect are within normal limits. 16:05 Skin: Vesicular rash in a dermatomal distribution on the left mid back, no surrounding cellulitic changes. Vital Signs: 14:19 BP 132 / 75; Pulse 79; Resp 16; Temp 98.9(O); Pulse Ox 94% on R/A; Weight 117.03 kg; iw Height 5 ft. 8 in. ; Pain 5/10; 15:02 BP 128 / 74; Pulse 76; Resp 15; Pulse Ox 99% ; ko1 14:19 Body Mass Index 39.23 (117.03 kg, 172.72 cm) iw 14:19 Pain Scale: Adult iw MDM: 14:31 Patient medically screened. rt 16:05 Differential diagnosis: varicella. Data reviewed: vital signs, nurses notes. Care rt significantly affected by the following chronic conditions: Cirrhosis. Counseling: I had a detailed discussion with the patient and/or guardian regarding the historical points, exam findings, and any diagnostic results supporting the discharge/admit diagnosis, the need for outpatient follow up, to return to the emergency department if symptoms worsen or persist or if there are any questions or concerns that arise at home. Response to treatment: the patient's symptoms have mildly improved after treatment. Administered Medications: No medications were administered Disposition Summary: 03/25/24 14:48 Discharge Ordered Notes: Location: Home rt Problem: new rt Symptoms: are unchanged rt Condition: Stable rt Diagnosis - Shingles rt Followup: rt - With: Private Physician - When: 5 - 6 days - Reason: Discharge Instructions: - Discharge Summary Sheet rt - Shingles rt Forms: - Medication Reconciliation Form rt - Antibiotic Education rt - Prescription Opioid Use rt - Patient Portal Instructions rt - Leadership Thank You Letter rt Prescriptions: - Valtrex 1 gram Oral tablet - take 1 tablet ORAL route every 8 hours for 7 days; 21 tablet; Refills: 0, rt Product Selection Permitted - gabapentin 300 mg Oral capsule - take 1 capsule ORAL route every 8 hours; 21 capsule; Refills: 0, Product rt Selection Permitted - Prednisone 20 mg Oral Tablet - take 2 tablets ORAL route once daily for 5 days; 10 tablet; Refills: 0, Product rt Selection Permitted Signatures: Kisha Brantley, RN RN iw Thelma Montero RN RN ko1 Emil Barber MD MD rt
--- NOTE | 2024-03-25 14:48 | ER ---
Nurse's Notes [facility] Name: Javier Saravia Age: 63 yrs Sex: Male : 1960 Arrival Date: 03/25/2024 Time: 14:14 Bed 6 Private MD: Diagnosis: Shingles Presentation: 03/25 14:19 Chief complaint: Patient states: there is a red spot on my back, worried it might be iw shingles , started 3-4 days ago. Coronavirus screen: At this time, the client does not indicate any symptoms associated with coronavirus-19. Ebola Screen: No symptoms or risks identified at this time. Initial Sepsis Screen: Does the patient meet any 2 criteria? No. Patient's initial sepsis screen is negative. Does the patient have a suspected source of infection? No. Patient's initial sepsis screen is negative. Risk Assessment: Do you want to hurt yourself or someone else? Patient reports no desire to harm self or others. Onset of symptoms was March 21, 2024. 14:19 Method Of Arrival: Ambulatory iw 14:19 Acuity: DR 4 iw Triage Assessment: 15:02 General: Appears in no apparent distress. Behavior is calm, cooperative, appropriate ko1 for age. Historical: - Allergies: 14:20 No Known Allergies; iw - PMHx: 14:20 Cirrhosis; Hypertension; psoriasis; iw - PSHx: 14:20 liver transplant; left leg; Cholecystectomy; iw - Immunization history:: Adult Immunizations unknown. - Infectious Disease History:: Denies. - Family history:: not pertinent. - Social history:: Smoking status: Patient denies any tobacco usage or history of. Screenin:00 [facility] ED Fall Risk Assessment (Adult) History of falling in the last 3 months, ko1 including since admission No falls in past 3 months (0 pts) Confusion or Disorientation No (0 pts) Intoxicated or Sedated No (0 pts) Impaired Gait No (0 pts) Mobility Assist Device Used No (0 pt) Altered Elimination No (0 pt) Score/Fall Risk Level 0 - 2 = Low Risk Oriented to surroundings, Maintained a safe environment, Educated pt \T\ family on fall prevention, incl call for assistance when getting out of bed, Assessed \T\ reinforced patient's understanding of fall precautions, Hourly rounding (assess needs \T\ fall precautionary measures) done. Abuse screen: Denies threats or abuse. Denies injuries from another. Nutritional screening: No deficits noted. Tuberculosis screening: No symptoms or risk factors identified. Assessment: 15:00 Pain: Complains of pain in left subscapular area. ko1 Vital Signs: 14:19 BP 132 / 75; Pulse 79; Resp 16; Temp 98.9(O); Pulse Ox 94% on R/A; Weight 117.03 kg; iw Height 5 ft. 8 in. ; Pain 5/10; 15:02 BP 128 / 74; Pulse 76; Resp 15; Pulse Ox 99% ; ko1 14:19 Body Mass Index 39.23 (117.03 kg, 172.72 cm) iw 14:19 Pain Scale: Adult iw ED Course: 14:17 Patient arrived in ED. mr 14:19 Emil Barber MD is Attending Physician. rt 14:20 Triage completed. iw 14:21 Arm band placed on. iw 14:31 Amna Treviño RN is Primary Nurse. jl7 15:00 Patient has correct armband on for positive identification. Bed in low position. Call ko1 light in reach. Provided Education on: meds. Pulse ox on. NIBP on. Door closed. Noise minimized. 15:00 No provider procedures requiring assistance completed. Patient did not have IV access ko1 during this emergency room visit. Administered Medications: No medications were administered Medication: 15:00 VIS not applicable for this client. ko1 Outcome: 14:48 Discharge ordered by . rt 15:00 Discharged to home ambulatory, with family, ko1 15:00 Condition: stable 15:00 Discharge instructions given to patient, family, Instructed on discharge instructions, follow up and referral plans. medication usage, Demonstrated understanding of instructions, follow-up care, medications, Prescriptions given X 3, 15:02 Patient left the ED. ko1 Signatures: Lainey Benitez, Reg Reg mr Kisha Brantley RN RN iw Amna Treviño RN RN jl7 Thelma Montero RN RN ko1 Emil Barber MD MD rt Corrections: (The following items were deleted from the chart) 14:21 14:19 BP 132 / 75; Pulse 79bpm; Resp 16bpm; Pulse Ox 94% RA; iw iw 14:22 14:19 BP 132 / 75; Pulse 79bpm; Resp 16bpm; Pulse Ox 94% RA; 117.03 kg; Height 5 ft. 8 iw in.; BMI: 39.2; Pain 5/10, Adult; iw
[2024-03-25 15:07] VITALS: TEMP 98.9
[2024-03-25 15:08] VITALS: BP 128/74; O2SAT 99
== END 2024-03-25 15:02 | disposition home or self-care (01) ==
LOC: ER 14:14
DX: B02.9 Zoster without complications (principal)
CPT/HCPCS: 99283

== ENCOUNTER 2024-07-25 14:35 | Emergency (ER) | payer OTHER ==
--- OUTSIDE RECORDS SUMMARY | 2024-07-25 14:38 | XMS REPORT | Clinical Summary ---
Author Name Unknown Organization [facility] Address [address] [place] [address] Care Team Providers Care Shirt Turner Name Role Phone Enrike Beltran MD Unavailable [phone] Social History Tobacco Use Types Packs/Day Years Used Date Smoking Tobacco: Never Assessed Sex and Gender Information Value Date Recorded Sex Assigned at Not on file Legal Sex Male 11:51 AM CDT Gender Identity Not on file Sexual Orientation Not on file Plan of Treatment Not on file Insurance [facility] MEDICARE ADVANTAGE Care Teams Shirt Turner Relationship Specialty Start Date End Date Enrike Beltran MD [address] [facility] [address] [place] [address] PCP - External Referring Orthopedic Surgery 02/15/19
[2024-07-25] MEDS ORDERED: dexAMETHasone 10 MG/ML VIAL ONE ×2 (16:43→16:44)
[2024-07-25] MEDS ORDERED: MORPHINE 4 MG/ML SYR ONE (16:44)
--- NOTE | 2024-07-25 17:02 | ER ---
Nurse's Notes [facility] Name: Javier Saravia Age: 63 yrs Sex: Male : 1960 Arrival Date: 07/25/2024 Time: 14:35 Bed 10 Private MD: Diagnosis: Sciatica, right side Presentation: 07/25 15:13 Chief complaint: Patient states: low back pain, chronic issue, it flares up every three ko1 months or so. Coronavirus screen: At this time, the client does not indicate any symptoms associated with coronavirus-19. Ebola Screen: No symptoms or risks identified at this time. Initial Sepsis Screen: Does the patient meet any 2 criteria? No. Patient's initial sepsis screen is negative. Does the patient have a suspected source of infection? No. Patient's initial sepsis screen is negative. Risk Assessment: Do you want to hurt yourself or someone else? Patient reports no desire to harm self or others. Onset of symptoms was July 25, 2024. 15:13 Method Of Arrival: Ambulatory ko1 15:13 Acuity: RD 4 ko1 Triage Assessment: 15:18 General: Appears in no apparent distress. uncomfortable, Behavior is calm, cooperative, ko1 appropriate for age. Pain: Complains of pain in left low back and right low back. Musculoskeletal: Circulation, motion, and sensation intact. Historical: - Allergies: 15:18 No Known Allergies; ko1 - PMHx: 15:18 Cirrhosis; Hypertension; psoriasis; Arthritis; ko1 - PSHx: 15:18 Cholecystectomy; left leg; liver transplant; ko1 - Immunization history:: Adult Immunizations unknown. - Infectious Disease History:: Denies. - Social history:: Smoking status: Patient denies any tobacco usage or history of. Screenin:36 [facility] ED Fall Risk Assessment (Adult) History of falling in the last 3 months, ph including since admission No falls in past 3 months (0 pts) Confusion or Disorientation No (0 pts) Intoxicated or Sedated No (0 pts) Impaired Gait No (0 pts) Mobility Assist Device Used No (0 pt) Altered Elimination No (0 pt) Score/Fall Risk Level 0 - 2 = Low Risk Oriented to surroundings, Maintained a safe environment, Hourly rounding (assess needs \T\ fall precautionary measures) done. Abuse screen: Denies threats or abuse. Denies injuries from another. Nutritional screening: No deficits noted. Tuberculosis screening: No symptoms or risk factors identified. Assessment: 16:49 General: Appears in no apparent distress. Behavior is calm, cooperative. Pain: ph Complains of pain in right low back. Neuro: Coleman Agitation-Sedation Scale (RASS): 0 - Alert and Calm Level of Consciousness is awake, alert, obeys commands, Oriented to person, place, time, situation. Cardiovascular: Capillary refill < 3 seconds in bilateral fingers Patient's skin is warm and dry. Respiratory: Airway is patent Respiratory effort is even, unlabored. Derm: Skin is pink, warm \T\ dry. Musculoskeletal: Circulation, motion, and sensation intact. Range of motion: intact in all extremities. Vital Signs: 15:13 BP 107 / 70; Pulse 64; Resp 18; Temp 97; Pulse Ox 96% ; ko1 16:51 BP 110 / 78; Pulse 68; Resp 18; Temp 98; Pulse Ox 99% on R/A; ph ED Course: 14:38 Patient arrived in ED. al6 14:42 Yenifer Sheikh FNP-C is PHCP. kb 14:42 Hari Miller DO is Attending Physician. kb 15:18 Triage completed. ko1 15:18 Arm band placed on right wrist. Patient placed in waiting room, Patient notified of ko1 wait time. 16:35 Patient placed in an exam room, on a stretcher. ll1 16:36 Henny Malagon, RN is Primary Nurse. ph 16:36 Patient has correct armband on for positive identification. Bed in low position. Call ph light in reach. Side rails up X 1. Door closed. Noise minimized. Warm blanket given. 16:49 No provider procedures requiring assistance completed. Patient did not have IV access ph during this emergency room visit. Administered Medications: 16:48 Drug: morphine IM 4 mg IM once Route: IM; Site: right gluteus; ph 17:12 Follow up: Response: No adverse reaction; Pain is decreased ph 16:48 Drug: Dexamethasone IM 10 mg IM once Route: IM; Site: right gluteus; ph 17:12 Follow up: Response: No adverse reaction ph Medication: 16:36 VIS not applicable for this client. ph Outcome: 17:01 Discharge ordered by . kb 17:12 Discharged to home ambulatory, with significant other, ph 17:12 Condition: good 17:12 Discharge instructions given to patient, Instructed on discharge instructions, follow up and referral plans. medication usage, Demonstrated understanding of instructions, follow-up care, medications, Prescriptions given X 2, 17:13 Patient left the ED. ph Signatures: Yenifer Sheikh, KITCHEN RUNNER-C KITCHEN RUNNER-Henny Castro RN RN ph Elida Moore RN RN ll1 Thelma Montero RN RN ko1 Mariel Rodriguez Corrections: (The following items were deleted from the chart) 15:19 15:18 Allergies: Iodine; ko1 ko1 15:19 15:18 Allergies: Codeine; ko1 ko1 16:48 16:48 morphine IM 4 mg IM in right vastus lateralis ph ph
--- NOTE | 2024-07-25 17:02 | EDPHYS ---
Physician Documentation [facility] Name: Javier Saravia Age: 63 yrs Sex: Male : 1960 Arrival Date: 07/25/2024 Time: 14:35 Bed 10 Private MD: ED Physician Hari Miller HPI: 07/25 18:45 This 63 yrs old Male presents to ER via Ambulatory with complaints of Back kb Pain. 18:45 Pt is a 63 year old male who presents for right low back/upper buttock pain that kb started 2 days ago. States he has chronic pain and it gets aggravated every couple of months. States he normally comes in here, gets a shot of pain medication and prescriptions for steroids, muscle relaxers and that normally keeps the pain away for a couple of months. Denies injury/trauma, urinary symptoms. . Historical: - Allergies: 15:18 No Known Allergies; ko1 - PMHx: 15:18 Cirrhosis; Hypertension; psoriasis; Arthritis; ko1 - PSHx: 15:18 Cholecystectomy; left leg; liver transplant; ko1 - Immunization history:: Adult Immunizations unknown. - Infectious Disease History:: Denies. - Social history:: Smoking status: Patient denies any tobacco usage or history of. ROS: 17:58 Constitutional: As per HPI kb Exam: 17:58 Constitutional: This is a well developed, well nourished patient who is awake, alert, kb and in no acute distress. Head/Face: Normocephalic, atraumatic. ENT: Moist Mucous membranes Cardiovascular: Regular rate Respiratory: Respirations even and unlabored. No increased work of breathing. Talking in full sentences Skin: Warm, dry with normal turgor. Normal color. MS/ Extremity: Pulses equal, no cyanosis. Neurovascular intact. Full, normal range of motion. Neuro: Awake and alert, GCS 15, oriented to person, place, time, and situation. 17:58 Back: pain, that is moderate, of the right low back, ROM is painful, CVA tenderness, is absent, vertebral tenderness, is not appreciated, Vital Signs: 15:13 BP 107 / 70; Pulse 64; Resp 18; Temp 97; Pulse Ox 96% ; ko1 16:51 BP 110 / 78; Pulse 68; Resp 18; Temp 98; Pulse Ox 99% on R/A; ph MDM: 14:42 Medical Screening Exam initiated kb 17:58 Data reviewed: vital signs, nurses notes. kb 18:44 Differential diagnosis: sciatica, uti, kidney stone, strain, fracture, chronic pain. kb Test considered but Not performed: CT: ct considered but pt reports this is similar to previous episodes, has had no injury/trauma, no urinary symptoms, No CVA tenderness. Counseling: I had a detailed discussion with the patient and/or guardian regarding the historical points, exam findings, and any diagnostic results supporting the discharge/admit diagnosis, the need for outpatient follow up, a family practitioner, to return to the emergency department if symptoms worsen or persist or if there are any questions or concerns that arise at home. ED course: Pt requested to leave after medications. States he normally gets those and they will work, but he doesn't want to wait any longer. Administered Medications: 16:48 Drug: morphine IM 4 mg IM once Route: IM; Site: right gluteus; ph 17:12 Follow up: Response: No adverse reaction; Pain is decreased ph 16:48 Drug: Dexamethasone IM 10 mg IM once Route: IM; Site: right gluteus; ph 17:12 Follow up: Response: No adverse reaction ph Disposition: 20:15 I was immediately available on-site in the Emergency Department for consultation in the ms3 care of the patient. Disposition Summary: 07/25/24 17:01 Discharge Ordered Notes: Location: Home kb Condition: Stable kb Diagnosis - Sciatica, right side kb Followup: kb - With: Emergency Department - When: As needed - Reason: Worsening of condition Followup: kb - With: Private Physician - When: 2 - 3 days - Reason: Recheck today's complaints, Continuance of care, Re-evaluation by your physician Discharge Instructions: - Discharge Summary Sheet kb - Sciatica, [id number] kb Forms: - Medication Reconciliation Form kb - Antibiotic Education kb - Prescription Opioid Use kb - Patient Portal Instructions kb - Leadership Thank You Letter kb Prescriptions: - Prednisone 20 mg Oral Tablet - take 1 tablet ORAL route once daily for 5 days; 5 tablet; Refills: 0, Product kb Selection Permitted - Cyclobenzaprine 10 mg Oral tablet - take 1 tablet ORAL route every 8 hours As needed; 21 tablet; Refills: 0, kb Product Selection Permitted Signatures: Yenifer Sheikh FNP-C FNP-Ckb Hall, Henny, RN RN ph Hari Miller DO DO ms3 Thelma Montero, [place] RN ko1 Corrections: (The following items were deleted from the chart) : Allergies: Iodine; ko1 ko1 Allergies: Codeine; ko1 ko1
[2024-07-25 18:01] VITALS: BP 110/78; TEMP 98; O2SAT 99
== END 2024-07-25 17:13 | disposition home or self-care (01) ==
LOC: ER 14:35
DX: M54.31 Sciatica, right side (principal)
CPT/HCPCS: 96372; 99284; J1100

== ENCOUNTER 2024-07-31 15:10 | Emergency (ER) | payer OTHER ==
--- OUTSIDE RECORDS SUMMARY | 2024-07-31 15:13 | XMS REPORT | Clinical Summary ---
Author Name Unknown Organization [facility] Address [address] [place] [address] Care Team Providers Care Activity Aide Name Role Phone Enrike Beltran MD Unavailable [phone] Social History Tobacco Use Types Packs/Day Years Used Date Smoking Tobacco: Never Assessed Sex and Gender Information Value Date Recorded Sex Assigned at Not on file Legal Sex Male 11:51 AM CDT Gender Identity Not on file Sexual Orientation Not on file Plan of Treatment Not on file Insurance [facility] MEDICARE ADVANTAGE Care Teams Activity Aide Relationship Specialty Start Date End Date Enrike Beltran MD [address] [facility] [address] [place] [address] PCP - External Referring Orthopedic Surgery 02/15/19
[2024-07-31] MEDS ORDERED: GABAPENTIN 300 MG CAP ONE (16:22)
[2024-07-31] MEDS ORDERED: MORPHINE 4 MG/ML SYR ONE (16:23)
[2024-07-31] MEDS ORDERED: dexAMETHasone 10 MG/ML VIAL ONE (16:23)
--- NOTE | 2024-07-31 16:57 | EDPHYS ---
Physician Documentation [facility] Name: Javier Saravia Age: 63 yrs Sex: Male : 1960 Arrival Date: 07/31/2024 Time: 15:10 Bed 12 Private MD: ED Physician Slim Fuchs HPI: 07/31 16:10 This 63 yrs old Male presents to ER via Ambulatory with complaints of Low Back rn Pain. 16:10 The patient presents with pain that is chronic. The symptoms are located in the low rn back. The pain radiates to the right leg. Onset: The symptoms/episode began/occurred yesterday. Modifying factors: The patient symptoms are alleviated by nothing, the patient symptoms are aggravated by bending, movement. Associated signs and symptoms: Pertinent positives: none Pertinent negatives: abdominal pain, chest pain, constipation, dysuria, fever, headache, hematuria, incontinence, nausea, numbness, tingling, urinary retention, vomiting, weakness. Severity of symptoms: At their worst the symptoms were moderate, in the emergency department the symptoms are unchanged. The patient has experienced similar episodes in the past. Patient reports right lower back pain with radiation to the right leg. Has had this numerous times and been diagnosed with sciatica of the right side. Reports seen here a week ago and felt better with medication, yesterday was doing work outside and aggravated back once again. No direct trauma or fall. No bowel or bladder issues. No weakness. Pain similar to previous sciatica problems.. Historical: - Allergies: 15:33 No Known Allergies; aa5 - PMHx: 15:32 Arthritis; Cirrhosis; Hypertension; psoriasis; Chronic back pain; aa5 - PSHx: 15:32 Cholecystectomy; left leg; liver transplant; aa5 - Immunization history:: Adult Immunizations up to date. - Infectious Disease History:: Denies. - Family history:: not pertinent. - Hospitalizations: : No recent hospitalization is reported. - Social history:: Smoking status: Patient denies any tobacco usage or history of. ROS: 16:10 Constitutional: Negative for fever, chills, and weight loss, Neck: Negative for injury, rn pain, and swelling, Cardiovascular: Negative for chest pain, palpitations, and edema, Respiratory: Negative for shortness of breath, cough, wheezing, and pleuritic chest pain, Abdomen/GI: Negative for abdominal pain, nausea, vomiting, diarrhea, and constipation, Back: Positive for right lower back pain with radiation to the right leg MS/Extremity: Negative for injury and deformity, Skin: Negative for injury, rash, and discoloration, Neuro: Negative for headache, weakness, numbness, tingling, and seizure, Exam: 16:10 Constitutional: This is a well developed, well nourished patient who is awake, alert, rn and in no acute distress. Appears at times uncomfortable with movement but otherwise making jokes and pleasant Head/Face: Normocephalic, atraumatic. Cardiovascular: Regular rate and rhythm. No pulse deficits. Respiratory: Speaking full sentences, unlabored Abdomen/GI: Soft, nontender Back: No midline spinal tenderness MS/ Extremity: Pulses equal, no cyanosis. Neurovascular intact. Full, normal range of motion. Equal circumference. Neuro: Awake and alert, GCS 15, oriented to person, place, time, and situation.Motor strength 5/5 in all extremities. Sensory grossly intact. Vital Signs: 15:31 BP 110 / 66; Pulse 60; Resp 18 S; Temp 97.9(TE); Pulse Ox 95% on R/A; aa5 17:03 BP 108 / 65; Pulse 58; Resp 17; Temp 98.4; Pulse Ox 96% ; me1 17:04 Pain 7/10; me1 17:04 Pain 7/10; me1 17:04 Pain 7/10; me1 17:04 Pain Scale: Adult me1 17:04 Pain Scale: Adult me1 17:04 Pain Scale: Adult me1 MDM: 15:21 Medical Screening Exam initiated rn 16:55 Differential diagnosis: sciatica. Data reviewed: vital signs, nurses notes, old medical rn records, radiologic studies, and as a result, I will discharge patient. Counseling: I had a detailed discussion with the patient and/or guardian regarding the historical points, exam findings, and any diagnostic results supporting the discharge/admit diagnosis, radiology results, the need for outpatient follow up, to return to the emergency department if symptoms worsen or persist or if there are any questions or concerns that arise at home. Special discussion: I discussed with the patient/guardian in detail that at this point there is no indication for admission to the hospital. It is understood, however, that if the symptoms persist or worsen the patient needs to return immediately for re-evaluation. 16:57 ED course: Patient feels much better, walk outside the room and requesting to leave.. rn Administered Medications: 16:28 Drug: Dexamethasone IM 10 mg IM once Route: IM; Site: left gluteus; me1 17:04 Follow up: Pain 7/10 Adult; Response: No adverse reaction; Pain is decreased me1 16:28 Drug: morphine IM 4 mg IM once Route: IM; Site: right gluteus; me1 17:04 Follow up: Pain 7/10 Adult; Response: No adverse reaction; Pain is decreased me1 16:28 Drug: Gabapentin PO 300 mg PO once Route: PO; me1 17:04 Follow up: Pain 7/10 Adult; Response: No adverse reaction; Pain is decreased me1 Disposition Summary: 07/31/24 16:57 Discharge Ordered Notes: Location: Home rn Problem: an acute exacerbation rn Symptoms: have improved rn Condition: Stable rn Diagnosis - Intervertebral disc disorders with radiculopathy, lumbosacral region rn Followup: rn - With: Private Physician - When: As needed - Reason: Recheck today's complaints, Re-evaluation by your physician Discharge Instructions: - Discharge Summary Sheet rn - Lumbosacral Radiculopathy rn Forms: - Medication Reconciliation Form rn - Antibiotic med surg rn - Prescription Opioid Use rn - Patient Portal Instructions rn - Leadership Thank You Letter rn Prescriptions: - Cyclobenzaprine 10 mg Oral tablet - take 1 tablet ORAL route every 8-12 hours As needed; 15 tablet; Refills: 0, rn Product Selection Permitted - Medrol (Jun) 4 mg Oral Tablets, Dose Pack - take 1 tablet ORAL route as directed - follow package instructions; 1 packet; rn Refills: 0, Product Selection Permitted Signatures: Slim Fuchs MD MD rn Calderon, Audri RN RN aa5 Yuli Doyle RN RN me1
--- NOTE | 2024-07-31 16:57 | ER ---
Nurse's Notes [facility] Name: Javier Saravia Age: 63 yrs Sex: Male : 1960 Arrival Date: 07/31/2024 Time: 15:10 Bed 12 Private MD: Diagnosis: Intervertebral disc disorders with radiculopathy, lumbosacral region Presentation: 07/31 15:31 Chief complaint: Patient states: right lower back pain radiating down right leg, pt aa5 states "I have the pain on and off and sometimes it flares up". pt states "this time it was from me doing a little bit of yard work". Coronavirus screen: At this time, the client does not indicate any symptoms associated with coronavirus-19. Ebola Screen: Patient denies travel to an Ebola-affected area in the 21 days before illness onset. Initial Sepsis Screen: Does the patient meet any 2 criteria? No. Patient's initial sepsis screen is negative. Does the patient have a suspected source of infection? No. Patient's initial sepsis screen is negative. Risk Assessment: Do you want to hurt yourself or someone else? Patient reports no desire to harm self or others. Onset of symptoms was July 2024. 15:31 Acuity: RD 4 aa5 15:31 Method Of Arrival: Ambulatory aa5 Historical: - Allergies: 15:33 No Known Allergies; aa5 - PMHx: 15:32 Arthritis; Cirrhosis; Hypertension; psoriasis; Chronic back pain; aa5 - PSHx: 15:32 Cholecystectomy; left leg; liver transplant; aa5 - Immunization history:: Adult Immunizations up to date. - Infectious Disease History:: Denies. - Family history:: not pertinent. - Hospitalizations: : No recent hospitalization is reported. - Social history:: Smoking status: Patient denies any tobacco usage or history of. Screenin:29 [facility] ED Fall Risk Assessment (Adult) History of falling in the last 3 months, me1 including since admission No falls in past 3 months (0 pts) Confusion or Disorientation No (0 pts) Intoxicated or Sedated No (0 pts) Impaired Gait No (0 pts) Mobility Assist Device Used No (0 pt) Altered Elimination No (0 pt) Score/Fall Risk Level 0 - 2 = Low Risk Maintained a safe environment, Provided non-skid footwear, Hourly rounding (assess needs \\T\\ fall precautionary measures) done. Abuse screen: Denies threats or abuse. Nutritional screening: No deficits noted. Tuberculosis screening: No symptoms or risk factors identified. Assessment: 16:29 General: Appears uncomfortable, well groomed, well developed, well nourished, Behavior me1 is calm, cooperative, appropriate for age, Reports right lower back pain radiating down right leg, pt states "I have the pain on and off and sometimes it flares up". pt states "this time it was from me doing a little bit of yard work". Pain: Complains of pain in right low back and right leg Pain radiates to right leg Pain currently is 9 out of 10 on a pain scale. Quality of pain is described as sharp, shooting, Pain began 1 day ago. Is continuous. Neuro: Level of Consciousness is awake, alert, obeys commands, Oriented to person, place, time, situation, Appropriate for age. Cardiovascular: Patient's skin is warm and dry. Respiratory: Airway is patent Respiratory effort is even, unlabored, Respiratory pattern is regular, symmetrical. GI: No signs and/or symptoms were reported involving the gastrointestinal system. : No signs and/or symptoms were reported regarding the genitourinary system. EENT: No signs and/or symptoms were reported regarding the EENT system. Derm: Skin is intact, is healthy with good turgor, Skin is pink, warm \\T\\ dry. Musculoskeletal: Reports pain in right low back. Vital Signs: 15:31 BP 110 / 66; Pulse 60; Resp 18 S; Temp 97.9(TE); Pulse Ox 95% on R/A; aa5 17:03 BP 108 / 65; Pulse 58; Resp 17; Temp 98.4; Pulse Ox 96% ; me1 17:04 Pain 7/10; me1 17:04 Pain 7/10; me1 17:04 Pain 7/10; me1 17:04 Pain Scale: Adult me1 17:04 Pain Scale: Adult me1 17:04 Pain Scale: Adult me1 ED Course: 15:14 Patient arrived in ED. al6 15:21 Slim Fuchs MD is Attending Physician. rn 15:31 Arm band placed on. aa5 15:32 Triage completed. aa5 16:21 Yuli Doyle, RN is Primary Nurse. me1 16:29 Patient has correct armband on for positive identification. Bed in low position. Call me1 light in reach. Side rails up X 1. Provided Education on: POC. Verbalized understanding.. Client placed on continuous cardiac and pulse oximetry monitoring. NIBP monitoring applied. Pulse ox on. NIBP on. 16:29 No provider procedures requiring assistance completed. Patient did not have IV access me1 during this emergency room visit. Administered Medications: 16:28 Drug: Dexamethasone IM 10 mg IM once Route: IM; Site: left gluteus; me1 17:04 Follow up: Pain 7/10 Adult; Response: No adverse reaction; Pain is decreased me1 16:28 Drug: morphine IM 4 mg IM once Route: IM; Site: right gluteus; me1 17:04 Follow up: Pain 7/10 Adult; Response: No adverse reaction; Pain is decreased me1 16:28 Drug: Gabapentin PO 300 mg PO once Route: PO; me1 17:04 Follow up: Pain 7/10 Adult; Response: No adverse reaction; Pain is decreased me1 Medication: 16:29 VIS not applicable for this client. me1 Outcome: 16:57 Discharge ordered by . rn 17:04 Discharged to home ambulatory, with significant other, me1 17:04 Condition: stable 17:04 Discharge instructions given to patient, significant other, Instructed on discharge instructions, follow up and referral plans. medication usage, Demonstrated understanding of instructions, follow-up care, medications, Prescriptions given X 2, 17:05 Patient left the ED. me1 Signatures: Slim Fuchs MD MD rn Calderon, Audri RN RN aa5 Yuli Doyle, [place] RN me1 Mariel Rodriguez al6 Corrections: (The following items were deleted from the chart) 15:34 15:31 Chief complaint: Patient states: right lower back pain, pt states "I have the aa5 pain on and off and sometimes it flares up". pt states "this time it was from me doing a little bit of yard work" aa5 16:29 15:31 Chief complaint: Patient states: right lower back pain radiating down right leg, me1 pt states "I have the pain on and off and sometimes it flares up". pt states "this time it was from me doing a little bit of yard work" aa5
[2024-07-31 19:34] VITALS: BP 108/65; TEMP 98.4; O2SAT 96
== END 2024-07-31 17:05 | disposition home or self-care (01) ==
LOC: ER 15:10
DX: M51.17 Intervertebral disc disorders with radiculopathy, lumbosacral region (principal)
CPT/HCPCS: 96372; 99284; J1100

== ENCOUNTER 2024-09-09 00:35 | Emergency (ER) | payer OTHER ==
--- OUTSIDE RECORDS SUMMARY | 2024-09-09 00:38 | XMS REPORT | Clinical Summary ---
Author Name Unknown Organization [facility] Address [address] [place] [address] Care Team Providers Care Steam Gigger Name Role Phone Enrike Beltran MD Unavailable [phone] Social History Tobacco Use Types Packs/Day Years Used Date Smoking Tobacco: Never Assessed Sex and Gender Information Value Date Recorded Sex Assigned at Not on file Legal Sex Male 11:51 AM CDT Gender Identity Not on file Sexual Orientation Not on file Plan of Treatment Not on file Insurance [facility] MEDICARE ADVANTAGE Care Teams Steam Gigger Relationship Specialty Start Date End Date Enrike Beltran MD [address] [facility] [address] [place] [address] PCP - External Referring Orthopedic Surgery 02/15/19
[2024-09-09] MEDS ORDERED: KETOROLAC 30 MG/ML INJ ONE (02:46)
[2024-09-09] MEDS ORDERED: PANTOPRAZOLE 40 MG INJ ONE (02:46)
[2024-09-09] MEDS ORDERED: METOCLOPRAMIDE 10 MG/2mL INJ ONE (02:47)
[2024-09-09] MEDS ORDERED: NA CHLORIDE 0.9% 500 ML ONE (02:47)
[2024-09-09 03:13] LABS: Absolute Lymphocytes (CBC) 0.9 K/uL (0.7-4.9); Absolute Monocytes 0.6 K/uL (0.1-1.3); Absolute Neutrophil 7.9 K/uL (1.8-8.0); Basophils % 0.4 % (0-1.3); Hematocrit 48.9 % (39.6-49.0); Hemoglobin 16.9 g/dL (13.6-17.9); Lymphocytes % 9.5 % (15.3-44.8); MCH 34.8 pg (27.0-35.0); MCHC 34.5 g/dL (32.0-36.0); MCV 100.7 fL (80-100); MPV 7.2 fL (7.6-11.3); Monocytes % 6.3 % (3.3-12.3); Neutrophils % 83.8 % (41.7-73.7); Platelets 197 thou/uL (152-406); RBC Red Blood Cell Count 4.86 M/uL (4.33-5.43); Red Cell Distribution Width 14.5 % (12.1-15.2)
[2024-09-09 03:16] LABS: PT Prothrombin Time 11.8 SECONDS (10-13.0); Protime INR 1.04
[2024-09-09 03:31] LABS: Albumin 2.9 g/dL (3.4-5.0); Albumin/Globulin Ratio 0.6 (1.1-1.8); Anion Gap 10.1 mEq/L (5.0-15.0); Bilirubin Direct 0.3 mg/dL (0-0.2); Bilirubin Indirect, Calculated 0.5 mg/dL (0.2-0.8); Bilirubin Total 0.8 mg/dL (0.2-1.0); Globulin 4.9 g/dL (2.3-3.5); Potassium 4.1 mEq/L (3.5-5.1); Protein, Total 7.8 g/dL (6.4-8.2); Troponin High Sensitivity 8.1 pg/mL (<58.9)
--- NOTE | 2024-09-09 04:40 | RAD REPORT ---
EXAM: XR Chest 1 View AP 09/09/2024 at 1: 31 AM HISTORY: epigastric pain COMPARISON: Chest 1 View AP 10/07/2023 report without image Chest 1 View AP 04/09/2023 CT chest 10/20/2023 report without images TECHNIQUE: Chest 1 View AP FINDINGS: Heart size and pulmonary vessels within normal limits. Lungs show no consolidation, mass, or significant pulmonary edema. Minimal curvilinear lower right lung field opacity. No significant pleural effusion or pneumothorax. No free air in upper abdomen. Chronic moderate right hemidiaphragm elevation. Few old healed right lower rib fractures. IMPRESSION: 1. No pneumoperitoneum (free air). 2. Chronic, moderate, right hemidiaphragm elevation. 3. Minimal, lower, right lung field scar/fibrosis. Electronically signed by: Owen Santos MD 09/09/2024 04:36 AM CDT RP Transcribed Date/Time: 09/09/2024 4:40 AM
[2024-09-09] MEDS ORDERED: LIDOCAINE VISCOUS 2% 10ML ORAL SOLN ONE (06:11)
[2024-09-09] MEDS ORDERED: MAGNES/ALUMIN/SIMET 30ML UCUP ONE (06:11)
--- NOTE | 2024-09-09 07:33 | RAD REPORT ---
EXAM DESCRIPTION: Abdomen Pelvis W Contrast CLINICAL HISTORY: epigastric/upper abdomen pain COMPARISON: None TECHNIQUE: Contiguous axial sections of the abdomen and pelvis were obtained with intravenous contrast. This exa m was performed according to our departmental dose-optimization program, which includes automated exposure control, adjustment of the mA and/or kV according to patient size and/or use of iterative re construction technique. FINDINGS: Lower Chest: The imaged lung bases are clear. No pleural or pericardial effusion. Organs: The liver, spleen, pancreas, and adrenal glands are normal. The kidneys are intact. The gallb ladder has been resected. There is a large tortuous left-sided splenorenal shunt the left renal vein is dilated. GI/Bowel: The small bowel loops within the mid and upper abdomen are dilated and fluid-filled measuri ng up to approximately 4.4 cm. Transition point involving the right upper quadrant small bowel best identified on image numbers 26 through 35 with possible internal hernia. Pelvis: The bladder is normal. The rectum is normal. No pelvic free fluid. No pelvic lymphadenopathy. Peritoneum/Retroperitoneum: No intraperitoneal free air. No intraperitoneal free fluid. No mesenteric or retroperitoneal lymphadenopathy. Bones/Soft Tissues: There are no suspicious-appearing lytic or blastic osseous lesions. Small fat-con taining abdominal hernia just right of midline image #22. IMPRESSION: 1. Partial small bowel obstruction with transition point right upper quadrant and suspected interna l hernia. Recommend surgical consultation. 2. Cholecystectomy. 3. Large left-sided splenorenal shunt. RECOMMENDATIONS: Electronically signed by: Rey Plasencia MD 09/09/2024 07:30 AM T Due to temporary technical issues with the PACS/[employer] reporting system, reports are being hung d by the in-house radiologist without review as a courtesy to ensure prompt reporting the interpreting radiologist is fully responsible for the content of the report. Transcribed Date/Time: 09/09/2024 7:33 AM
--- NOTE | 2024-09-09 07:51 | ER ---
Nurse's Notes [facility] Name: Javier Saravia Age: 63 yrs Sex: Male : 1960 Arrival Date: 09/09/2024 Time: 00:35 Bed 17 Private MD: Diagnosis: Partial small bowel obstruction, abdominal pain Presentation: 09/09 00:59 Chief complaint: Patient states: PT STATES EPIGASTRIC PAIN WHEN WOKE UP THIS br2 MORNING...NAUSEA/VOMITING. Coronavirus screen: Client denies travel out of the [place] in the last 14 days. Ebola Screen: Patient denies exposure to infectious person. Initial Sepsis Screen: Does the patient meet any 2 criteria? No. Patient's initial sepsis screen is negative. Does the patient have a suspected source of infection? No. Patient's initial sepsis screen is negative. Risk Assessment: Do you want to hurt yourself or someone else? Patient reports no desire to harm self or others. Onset of symptoms was September 08, 2024 at 08:00. 00:59 Method Of Arrival: Ambulatory br2 00:59 Acuity: RD 3 br2 Triage Assessment: 01:01 General: Appears uncomfortable, Behavior is calm, cooperative. Pain: Complains of pain br2 in diaphragm and xiphoid area. GI: Abdomen is round Reports epigastric pain, vomiting. Historical: - Allergies: 01:01 No Known Allergies; br2 - Immunization history:: Adult Immunizations up to date. - Infectious Disease History:: Denies. - Social history:: Smoking status: Patient denies any tobacco usage or history of. Patient uses alcohol, occasionally. Patient/guardian denies using street drugs. Screenin:00 [facility] ED Fall Risk Assessment (Adult) History of falling in the last 3 months, ay including since admission No falls in past 3 months (0 pts) Confusion or Disorientation No (0 pts) Intoxicated or Sedated No (0 pts) Impaired Gait No (0 pts) Mobility Assist Device Used No (0 pt) Altered Elimination No (0 pt) Score/Fall Risk Level 0 - 2 = Low Risk. Abuse screen: Denies threats or abuse. Nutritional screening: No deficits noted. Tuberculosis screening: No symptoms or risk factors identified. Assessment: 01:00 General: Appears distressed, uncomfortable, Behavior is cooperative. Pain: Denies pain. ay Neuro: Level of Consciousness is awake, alert, obeys commands, Oriented to person, place, time, situation, Speech is normal. Cardiovascular: Reports heart burn Denies chest pain, nausea, shortness of breath, vomiting. Respiratory: Airway is patent Respiratory effort is even, unlabored, Respiratory pattern is regular, symmetrical. GI: Bowel sounds present X 4 quads. Abd is soft and non tender Reports heart burn. : No signs and/or symptoms were reported regarding the genitourinary system. EENT: No signs and/or symptoms were reported regarding the EENT system. Derm: No signs and/or symptoms reported regarding the dermatologic system. 07:25 Reassessment: No changes from previously documented assessment. Patient and/or family ll1 updated on plan of care and expected duration. Pain level reassessed. Patient is alert, oriented x 3, equal unlabored respirations, skin warm/dry/pink. needs to leave, please call him with CT results if needed. Vital Signs: 00:59 BP 179 / 98; Pulse 100; Resp 18; Temp 97.2(O); Pulse Ox 98% on R/A; Weight 117.93 kg; br2 Height 5 ft. 8 in. ; Pain 9/10; 01:00 BP 182 / 90; Pulse 92; Resp 16; Pulse Ox 96% on R/A; ay 02:00 BP 187 / 94; Pulse 94; Resp 17; Pulse Ox 96% on R/A; ay 03:00 BP 173 / 98; Pulse 96; Resp 19; Pulse Ox 98% on R/A; ay 06:00 BP 162 / 91; Pulse 92; Resp 19; Pulse Ox 96% on R/A; ay 07:25 BP 167 / 83; Pulse 91; Resp 16; Pulse Ox 97% ; ll1 00:59 Body Mass Index 39.53 (117.93 kg, 172.72 cm) br2 00:59 Pain Scale: Adult br2 ED Course: 00:37 Patient arrived in ED. jj6 00:38 Karsten Carlos PA is PHCP. cp 00:38 Karsten Calvert MD is Attending Physician. cp 01:00 Inserted saline lock: 20 gauge in right antecubital area, using aseptic technique. ay 01:00 monitoring coordinator on. Pulse ox on. NIBP on. ay 01:01 Triage completed. br2 02:02 XRAY Chest (1 view) In Process Unspecified. EDMS 02:41 Scott Grubbs, RN is Primary Nurse. ay 03:25 EKG done, by ED staff, reviewed by Karsten PERALTA. oe 03:56 CT Abd/Pelvis - IV Contrast Only In Process Unspecified. EDMS 07:13 Attending Physician role handed off by Karsten Calvert MD sp3 07:13 Macario Hernandez MD is Attending Physician. sp3 07:26 IV discontinued, intact, bleeding controlled, No redness/swelling at site. Pressure ll1 dressing applied. 07:26 No provider procedures requiring assistance completed. ll1 07:26 Arm band placed on. ll1 07:26 Patient has correct armband on for positive identification. Provided Education on: ll1 return to ED for worsening symptoms. Administered Medications: 03:12 Drug: Pantoprazole IVP 40 mg IVP once Route: IVP; Site: right antecubital; ay 06:20 Follow up: Response: No adverse reaction ay 03:12 Drug: metoCLOPramide IVP 10 mg IVP once; over 1 to 2 minutes Route: IVP; Site: right ay antecubital; 06:20 Follow up: Response: No adverse reaction ay 03:12 Drug: Ketorolac IVP 15 mg IVP once Route: IVP; Site: right antecubital; ay 06:19 Follow up: Response: No adverse reaction ay 06:19 Follow up: Response: No adverse reaction ay 03:12 Drug: NS 0.9% IV 500 ml 500 ml IV at 1 bolus once; to be given as a bolus over 60 ay minutes Volume: 500 ml; Route: IV; Rate: 1 bolus; Site: right antecubital; 07:27 Follow up: Response: No adverse reaction; IV Status: Completed infusion; IV Intake: ll1 500ml 06:19 Drug: GI Cocktail without - (Maalox PO 30 ml, Lidocaine Mucous Membrane 2 % 15 ay ml) PO once Route: PO; 07:27 Follow up: Response: No adverse reaction; RASS: Alert and Calm (0) ll1 Medication: 07:27 VIS not applicable for this client. ll1 Intake: 07:27 IV: 500ml; Total: 500ml. ll1 Outcome: 07:25 Condition: stable ll1 07:25 Eloped from patient exam room, after seeing physician ll1 07:25 Instructed on return to ED for worsening symptoms 08:07 Patient left the ED. ll1 Signatures: Dispatcher [employer] EDMS Karsten Carlos PA PA cp Espinosa, Orlando oe Lewis, Lynsay, [place] RN ll1 Macario Hernandez MD MD sp3 Renea Wright jj6 Queta Hobbs RN RN br2 Scott Grubbs RN RN ay Corrections: (The following items were deleted from the chart) 07:25 Reassessment: No changes from previously documented assessment. Patient and/or ll1 family updated on plan of care and expected duration. Pain level reassessed. Patient is alert, oriented x 3, equal unlabored respirations, skin warm/dry/pink. ll1 07:26 Condition: stable ll1 1 07:26 Discharged to home ambulatory, [facility] 07:26 Discharge instructions given to patient, Instructed on discharge instructions, ll1 follow up and referral plans. medication usage, Demonstrated understanding of instructions, follow-up care, medications, ll1
--- NOTE | 2024-09-09 07:51 | EDPHYS ---
Physician Documentation [facility] Name: Javier Saravia Age: 63 yrs Sex: Male : 1960 Arrival Date: 09/09/2024 Time: 00:35 Bed 17 Private MD: ED Physician Macario Hernandez HPI: 09/09 01:05 This 63 yrs old Male presents to ER via Ambulatory with complaints of cp Abdominal Pain, Epigastric Pain, Nausea/Vomiting. 01:05 The patient presents with abdominal pain in the epigastric area. Onset: The cp symptoms/episode began/occurred this morning, upon awakening. The symptoms do not radiate. Associated signs and symptoms: Pertinent positives: nausea and vomiting, diarrhea, Pertinent negatives: blood in stools, chest pain, constipation, fever, vomiting blood. The symptoms are described as burning, waxing/waning, feels like "heartburn". Severity of pain: in the emergency department the pain is unchanged despite home interventions. Historical: - Allergies: 01:01 No Known Allergies; br2 - Immunization history:: Adult Immunizations up to date. - Infectious Disease History:: Denies. - Social history:: Smoking status: Patient denies any tobacco usage or history of. Patient uses alcohol, occasionally. Patient/guardian denies using street drugs. ROS: 01:10 Constitutional: Negative for body aches, chills, fever, poor PO intake, cp 01:10 Cardiovascular: Negative for chest pain, edema, palpitations, cp 01:10 Respiratory: Negative for cough, shortness of breath, wheezing, Exam: 01:15 Constitutional: The patient appears in no acute distress, alert, awake, cp non-diaphoretic, non-toxic, well developed, well nourished, obese, uncomfortable, 01:15 Head/Face: Normocephalic, atraumatic. cp 01:15 Eyes: Periorbital structures: appear normal, Conjunctiva: normal, no exudate, no injection, Sclera: no appreciated abnormality, Lids and lashes: appear normal, bilaterally, 01:15 ENT: External ear(s): are unremarkable, Nose: is normal, Mouth: Lips: moist, Oral mucosa: moist, Posterior pharynx: Airway: no evidence of obstruction, patent, 01:15 Chest/axilla: Inspection: normal, 01:15 Cardiovascular: Rate: tachycardic, Rhythm: regular, JVD: is not appreciated, 01:15 Respiratory: the patient does not display signs of respiratory distress, Respirations: labored breathing, is not present, intercostal retractions, are absent, Breath sounds: are clear throughout, no decreased breath sounds, no stridor, no wheezing, 01:15 Abdomen/GI: Inspection: obese Bowel sounds: active, all quadrants, Palpation: soft, in all quadrants, moderate abdominal tenderness, in the epigastric area, right upper quadrant and left upper quadrant, rebound tenderness, is not appreciated, involuntary guarding, is not appreciated, 01:15 Back: CVA tenderness, is absent, 01:15 Neuro: Orientation: to person, place \\T\\ time. Mentation: is normal, Motor: moves all fours, strength is normal, Gait: is steady, 03:24 ECG was reviewed by the Attending Physician. cp Vital Signs: 00:59 BP 179 / 98; Pulse 100; Resp 18; Temp 97.2(O); Pulse Ox 98% on R/A; Weight 117.93 kg; br2 Height 5 ft. 8 in. ; Pain 9/10; 01:00 BP 182 / 90; Pulse 92; Resp 16; Pulse Ox 96% on R/A; ay 02:00 BP 187 / 94; Pulse 94; Resp 17; Pulse Ox 96% on R/A; ay 03:00 BP 173 / 98; Pulse 96; Resp 19; Pulse Ox 98% on R/A; ay 06:00 BP 162 / 91; Pulse 92; Resp 19; Pulse Ox 96% on R/A; ay 07:25 BP 167 / 83; Pulse 91; Resp 16; Pulse Ox 97% ; ll1 00:59 Body Mass Index 39.53 (117.93 kg, 172.72 cm) br2 00:59 Pain Scale: Adult br2 MDM: 00:54 Medical Screening Exam initiated esha 01:30 Differential diagnosis: appendicitis, bowel obstruction, gastritis, GI Bleed, cp non-specific abd pain, pancreatitis, Peptic Ulcer Disease, Perf. Duodenal Ulcer, Perf. Gastric Ulcer, Ureterolithiasis, urinary tract infection. 07:50 ED course: Patient signed out to me by nighttime team. 63-year-old male with abdominal sp3 pain. CT demonstrates partial SBO but patient eloped prior to CT results. We are trying to track him down via telephone and will try multiple attempts until he is found.. 07:57 ED course: I discussed the case with Mr. Saravia on the phone and he states that he sp3 wants to try liquid diet at home after discussion with him on potential strategies for resolution. If he feels worse he will return to the ED. I told him my recommendation is to admit him with surgical consultation and observation but he states that he had to get home.. 09/09 00:59 Order name: Basic Metabolic Panel; Complete Time: 03:32 cp 09/09 03:32 Interpretation: Normal except: GLUC 111; GFR 70. cp 09/09 00:59 Order name: CBC with Diff; Complete Time: 03:26 cp 09/09 03:26 Interpretation: Normal except: MCV 100.7; MPV 7.2; MARYLU% 83.8; LYM% 9.5. cp 09/09 00:59 Order name: LFT's; Complete Time: 03:32 cp 09/09 03:32 Interpretation: Normal except: ALK 203; BILID 0.3; ALB 2.9; GLOB 4.9; A/G 0.6. cp 09/09 00:59 Order name: Magnesium; Complete Time: 03:32 cp 09/09 00:59 Order name: PT-INR; Complete Time: 03:26 cp 09/09 03:26 Interpretation: Reviewed. cp 09/09 00:59 Order name: Troponin HS; Complete Time: 03:32 cp 09/09 00:59 Order name: Lipase; Complete Time: 03:32 cp 09/09 00:59 Order name: XRAY Chest (1 view); Complete Time: 05:32 cp 09/09 05:32 Interpretation: Report review. cp 09/09 02:14 Order name: CT Abd/Pelvis - IV Contrast Only; Complete Time: 07:45 cp 09/09 00:59 Order name: EKG; Complete Time: 01:00 cp 09/09 00:59 Order name: Cardiac monitoring; Complete Time: 03:13 cp 09/09 00:59 Order name: EKG - Nurse/Tech; Complete Time: 06:20 cp 09/09 00:59 Order name: IV Saline Lock; Complete Time: 03:13 cp 09/09 00:59 Order name: Labs collected and sent; Complete Time: 03:13 cp 09/09 00:59 Order name: O2 Per Protocol; Complete Time: 03: cp 09/09 00:59 Order name: O2 Sat Monitoring; Complete Time: : cp EC:24 Rate is 92 beats/min. Rhythm is regular. IN interval is normal. QRS interval is normal. cp QT interval is normal. T waves are Inverted in lead aVR. Interpreted by me. Reviewed by me. Administered Medications: 03:12 Drug: Pantoprazole IVP 40 mg IVP once Route: IVP; Site: right antecubital; ay 06:20 Follow up: Response: No adverse reaction ay 03:12 Drug: metoCLOPramide IVP 10 mg IVP once; over 1 to 2 minutes Route: IVP; Site: right ay antecubital; 06:20 Follow up: Response: No adverse reaction ay 03:12 Drug: Ketorolac IVP 15 mg IVP once Route: IVP; Site: right antecubital; ay 06:19 Follow up: Response: No adverse reaction ay 06:19 Follow up: Response: No adverse reaction ay 03:12 Drug: NS 0.9% IV 500 ml 500 ml IV at 1 bolus once; to be given as a bolus over 60 ay minutes Volume: 500 ml; Route: IV; Rate: 1 bolus; Site: right antecubital; 07:27 Follow up: Response: No adverse reaction; IV Status: Completed infusion; IV Intake: ll1 500ml 06:19 Drug: GI Cocktail without - (Maalox PO 30 ml, Lidocaine Mucous Membrane 2 % 15 ay ml) PO once Route: PO; 07:27 Follow up: Response: No adverse reaction; RASS: Alert and Calm (0) ll1 Disposition Summary: 09/09/24 07:51 Eloped Notes: Disposition: after being seen by provider sp3 Reason: unknown sp3 Diagnosis - Partial small bowel obstruction, abdominal pain sp3 Followup: sp3 - With: Emergency Department - When: Today - Reason: Discharge Instructions: - Discharge Summary Sheet cp - Abdominal Pain, Adult cp - Food Choices to Help Relieve Diarrhea, Adult cp - Diarrhea, Adult cp - Nausea and Vomiting, Adult cp Forms: - Work release form ll1 Prescriptions: - ondansetron 8 mg Oral Tablet,disintegrating - take 1 tablet ORAL route every 12 hours; 15 tablet; Refills: 0, Product cp Selection Permitted Signatures: Dispatcher [employer] Karsten Cordero MD MD cha Page, Corey, PA PA cp Patel, Setul, MD MD sp3 Queta Hobbs RN RN br2 Scott Grubbs RN RN tran Moore, Elida PENALOZA ll1
[2024-09-09 08:11] VITALS: TEMP 97.2
[2024-09-09 08:17] VITALS: BP 167/83; O2SAT 97
--- NOTE | 2024-09-11 12:06 | EKG ---
Test Date: 2024-09-09 Test Time: 03:18:52 Elevator Pilot: WAYNE MEASUREMENT RESULTS: Intervals: Rate: 92 MN: 142 QRSD: 84 QT: 386 QTc: 477 Henderson: P: 62 MN: 142 QRS: 12 T: 59 INTERPRETIVE STATEMENTS: Normal sinus rhythm Cannot rule out Anterior infarct, age undetermined Abnormal ECG Compared to ECG 10/20/2023 19:14:36 Myocardial infarct finding now present Electronically Signed On 09-11-24 12:01:47 CDT by [place]
== END 2024-09-09 08:07 | disposition left against medical advice (07) ==
LOC: ER 00:35
DX: K56.600 Partial intestinal obstruction, unspecified as to cause (principal)
CPT/HCPCS: 36415; 71045; 74177; 80048; 80076; 83690; 83735; 84484; 85025; 85610; 93005; 96361; 96374; 96375; 99285; J2470; J2765; J7040; Q9967

== ENCOUNTER 2024-09-09 14:00 | Inpatient (IN) | payer OTHER ==
--- NOTE | 2024-09-09 15:22 | ER ---
Nurse's Notes [facility] Name: Javier Saravia Age: 63 yrs Sex: Male : 1960 Arrival Date: 09/09/2024 Time: 14:00 Bed 19 Private MD: Diagnosis: Partial small bowel obstruction Presentation: 09/09 14:08 Chief complaint: Patient states: Here for partial SBO. Coronavirus screen: Client ll1 denies travel out of the [place] in the last 14 days. At this time, the client does not indicate any symptoms associated with coronavirus-19. Ebola Screen: Patient denies travel to an Ebola-affected area in the 21 days before illness onset. Initial Sepsis Screen: Does the patient meet any 2 criteria? No. Patient's initial sepsis screen is negative. Does the patient have a suspected source of infection? No. Patient's initial sepsis screen is negative. Risk Assessment: Do you want to hurt yourself or someone else? Patient reports no desire to harm self or others. Onset of symptoms was September 09, 2024. 14:08 Method Of Arrival: Ambulatory ll1 14:08 Acuity: RD 3 ll1 Triage Assessment: 14:09 General: Appears uncomfortable, Behavior is calm, cooperative, appropriate for age. ll1 Pain: Complains of pain in abdomen. GI: Reports upper abdominal pain, indigestion. Historical: - Allergies: 14:08 Iodine; ll1 14:08 Codeine; ll1 - PMHx: 14:08 Arthritis; Cirrhosis; Hypertension; chronic back pain; psoriasis; ll1 - PSHx: 14:08 Cholecystectomy; left leg; liver transplant; ll1 - Immunization history:: Adult Immunizations up to date. - Infectious Disease History:: Denies. - Social history:: Smoking status: Patient denies any tobacco usage or history of. Screenin:32 [facility] ED Fall Risk Assessment (Adult) History of falling in the last 3 months, kj2 including since admission No falls in past 3 months (0 pts) Confusion or Disorientation No (0 pts) Intoxicated or Sedated No (0 pts) Impaired Gait No (0 pts) Mobility Assist Device Used No (0 pt) Altered Elimination No (0 pt) Score/Fall Risk Level 0 - 2 = Low Risk Maintained a safe environment, Hourly rounding (assess needs \T\ fall precautionary measures) done. Abuse screen: Denies threats or abuse. Denies injuries from another. Nutritional screening: No deficits noted. Tuberculosis screening: No symptoms or risk factors identified. Assessment: 14:15 General: Appears in no apparent distress. uncomfortable, Behavior is cooperative. Pain: kj2 Complains of pain in abdomen Pain currently is 8 out of 10 on a pain scale. Neuro: Level of Consciousness is awake, alert, obeys commands, Oriented to person, place, time, situation. Cardiovascular: Patient's skin is warm and dry. Respiratory: Airway Respiratory effort is even, unlabored. GI:. : No signs and/or symptoms were reported regarding the genitourinary system. 15:15 Reassessment: Patient appears in no apparent distress at this time. Patient and/or kj2 family updated on plan of care and expected duration. Pain level reassessed. Patient is alert, oriented x 3, equal unlabored respirations, skin warm/dry/pink. 16:33 Reassessment: Patient appears in no apparent distress at this time. Patient and/or kj2 family updated on plan of care and expected duration. Pain level reassessed. Patient is alert, oriented x 3, equal unlabored respirations, skin warm/dry/pink. Vital Signs: 14:08 BP 159 / 90; Pulse 93; Resp 18; Pulse Ox 98% ; Weight 117.93 kg; Height 5 ft. 8 in. ; ll1 Pain 8/10; 16:39 BP 149 / 85; Pulse 86; Resp 18; Temp 98; Pulse Ox 100% on R/A; kj2 14:08 Body Mass Index 39.53 (117.93 kg, 172.72 cm) ll1 14:08 Pain Scale: Adult ll1 ED Course: 14:03 Patient arrived in ED. rg4 14:04 Macario Hernandez MD is Attending Physician. sp3 14:08 Arm band placed on Patient placed in an exam room, on a stretcher. ll1 14:09 Triage completed. ll1 14:15 Patient has correct armband on for positive identification. Bed in low position. Call kj2 light in reach. Adult w/ patient. Provided Education on: call light. 14:16 Annette Patel, [place] is Primary Nurse. kj2 14:30 Inserted saline lock: 20 gauge in right antecubital area, using aseptic technique. kj2 Blood collected. Flushed with 10 mL NS. 15:22 Ernie Eric MD is Hospitalizing Provider. sp3 16:36 No provider procedures requiring assistance completed. kj2 Administered Medications: 16:34 Drug: NS 0.9% IV 1000 ml IV at 100 ml/hr once; to be given as a bolus over 60 minutes kj2 Route: IV; Rate: 100 ml/hr; Site: right antecubital; 16:34 Drug: HYDROmorphone IVP 1 mg IVP once Route: IVP; Site: right antecubital; kj2 16:34 Drug: Ondansetron IVP 4 mg IVP once; over 2 minutes Route: IVP; Site: right antecubital;kj2 Medication: 14:15 VIS not applicable for this client. kj2 Outcome: 15:22 Decision to Hospitalize by Provider. sp3 18:17 Patient left the ED. aa5 Signatures: Vani Mcelroy RN RN aa5 Franchesca Collado rg4 Elida Moore RN RN ll1 Macario Hernandez MD MD sp3 Annette Patel RN RN kj2 Corrections: (The following items were deleted from the chart) 16:34 16:34 HYDROmorphone IVP 1 mg IVP in right femoral kj2 kj2
--- NOTE | 2024-09-09 15:23 | EDPHYS ---
Physician Documentation [facility] Name: Javier Saravia Age: 63 yrs Sex: Male : 1960 Arrival Date: 09/09/2024 Time: 14:00 Bed 19 Private MD: ED Physician Macario Hernandez HPI: 09/09 14:10 This 63 yrs old Male presents to ER via Ambulatory with complaints of sp3 Abdominal Pain. 14:10 63-year-old male with liver cirrhosis, hypertension presents with abdominal pain. sp3 Patient was seen earlier this morning but eloped due to not wanting to wait for CT scan. CT scan demonstrated partial small bowel obstruction and outpatient returns for further evaluation. No change in course. Please see prior visit note for further details.. Historical: - Allergies: 14:08 Iodine; ll1 14:08 Codeine; ll1 - PMHx: 14:08 Arthritis; Cirrhosis; Hypertension; chronic back pain; psoriasis; ll1 - PSHx: 14:08 Cholecystectomy; left leg; liver transplant; ll1 - Immunization history:: Adult Immunizations up to date. - Infectious Disease History:: Denies. - Social history:: Smoking status: Patient denies any tobacco usage or history of. ROS: 14:11 Constitutional: Negative for fever, chills, and weight loss, Eyes: Negative for injury, sp3 pain, redness, and discharge, Neck: Negative for injury, pain, and swelling, Cardiovascular: Negative for chest pain, palpitations, and edema, Respiratory: Negative for shortness of breath, cough, wheezing, and pleuritic chest pain, Back: Negative for injury and pain, MS/Extremity: Negative for injury and deformity, Skin: Negative for injury, rash, and discoloration, Neuro: Negative for headache, weakness, numbness, tingling, and seizure, Psych: Negative for depression, anxiety, suicide ideation, homicidal ideation, and hallucinations, Allergy/Immunology: Negative for hives, rash, and allergies, 14:11 All other systems are negative, Exam: 14:11 Constitutional: This is a well developed, well nourished patient who is awake, alert, sp3 and in no acute distress. Head/Face: Normocephalic, atraumatic. Eyes: Pupils equal round and reactive to light, extra-ocular motions intact. Lids and lashes normal. Conjunctiva and sclera are non-icteric and not injected. Cornea within normal limits. Periorbital areas with no swelling, redness, or edema. ENT: Nares patent. No nasal discharge, no septal abnormalities noted. External auditory canals are clear. Oropharynx with no redness, swelling, or masses, exudates, or evidence of obstruction, uvula midline. Mucous membranes moist. Neck: Trachea midline, no thyromegaly or masses palpated, and no cervical lymphadenopathy. Supple, full range of motion without nuchal rigidity, or vertebral point tenderness. No Meningismus. Chest/axilla: Normal chest wall appearance and motion. Nontender with no deformity. No lesions are appreciated. Cardiovascular: Regular rate and rhythm with a normal S1 and S2. No gallops, murmurs, or rubs. Normal PMI, no JVD. No pulse deficits. Respiratory: Lungs have equal breath sounds bilaterally, clear to auscultation and percussion. No rales, rhonchi or wheezes noted. No increased work of breathing, no retractions or nasal flaring. Back: No spinal tenderness. No costovertebral tenderness. Full range of motion. Skin: Warm, dry with normal turgor. Normal color with no rashes, no lesions, and no evidence of cellulitis. MS/ Extremity: Pulses equal, no cyanosis. Neurovascular intact. Full, normal range of motion. Neuro: Awake and alert, GCS 15, oriented to person, place, time, and situation. Cranial nerves II-XII grossly intact. Motor strength 5/5 in all extremities. Sensory grossly intact. Cerebellar exam normal. Normal gait. Psych: Awake, alert, with orientation to person, place and time. Behavior, mood, and affect are within normal limits. 14:11 Abdomen/GI: Diffuse mild pain to palpation without peritoneal signs, rebound or guarding. No distention noted., Vital Signs: 14:08 BP 159 / 90; Pulse 93; Resp 18; Pulse Ox 98% ; Weight 117.93 kg; Height 5 ft. 8 in. ; ll1 Pain 8/10; 16:39 BP 149 / 85; Pulse 86; Resp 18; Temp 98; Pulse Ox 100% on R/A; kj2 14:08 Body Mass Index 39.53 (117.93 kg, 172.72 cm) ll1 14:08 Pain Scale: Adult ll1 MDM: 14:09 Medical Screening Exam initiated sp3 14:11 Data reviewed: vital signs, nurses notes, old medical records. ED course: Will keep sp3 patient n.p.o. and admit to medicine with surgical consultation.. 09/09 16:20 Order name: Basic Metabolic Panel EDUT 09/09 16:20 Order name: Basic Metabolic Panel EDUT 09/09 16:20 Order name: CBC with Automated Diff EDMS 09/09 16:20 Order name: CBC with Automated Diff EDMS 09/09 16:19 Order name: CONS Physician Consult EDUT 09/09 14:09 Order name: IV Saline Lock; Complete Time: 14:30 sp3 09/09 16:04 Order name: NPO; Complete Time: 16:05 sp3 Administered Medications: 16:34 Drug: NS 0.9% IV 1000 ml IV at 100 ml/hr once; to be given as a bolus over 60 minutes kj2 Route: IV; Rate: 100 ml/hr; Site: right antecubital; 16:34 Drug: HYDROmorphone IVP 1 mg IVP once Route: IVP; Site: right antecubital; kj2 16:34 Drug: Ondansetron IVP 4 mg IVP once; over 2 minutes Route: IVP; Site: right antecubital;kj2 Disposition Summary: 09/09/24 15:22 Hospitalization Ordered Notes: Hospitalization Status: Inpatient Admission sp3 Provider: Ernie Eric Location: Telemetry/[facility] (Inpatient) sp3 Condition: Stable sp3 Problem: new sp3 Symptoms: have worsened sp3 Bed/Room Type: Standard sp3 Room Assignment: 416(09/09/24 16:27) sp Diagnosis - Partial small bowel obstruction sp3 Forms: - Medication Reconciliation Form sp3 - SBAR form sp3 - Leadership Thank You Letter sp3 Signatures: Dispatcher [employer] [facility] Liz Silva Lynsay, RN RN ll1 Macario Hernandez MD MD sp3 Annette Patel RN RN kj2 Corrections: (The following items were deleted from the chart) 16:27 15:22 sp3 sp
[2024-09-09] MEDS ORDERED: ONDANSETRON 4 MG/2 ML VIAL ONE (16:25)
[2024-09-09] MEDS ORDERED: NA CHLORIDE 0.9% 1,000 ML ONE (16:25)
[2024-09-09] MEDS ORDERED: HYDROMORPHONE HCL 1 MG/ML INJ ONE (16:25)
[2024-09-09] MEDS: NA CHLORIDE 0.9% 1,000 ML IV SCH (18:22)
[2024-09-09] MEDS ORDERED: ONDANSETRON 4 MG/2 ML VIAL IV PRN (18:33)
[2024-09-09] MEDS: HYDROMORPHONE HCL 1 MG/ML INJ IV PRN (19:18)
[2024-09-09] MEDS: METRONIDAZOLE 500mg IVPB 500 MG/100 ML BAG IV SCH (20:14)
[2024-09-09] MEDS: D5 0.9 NS 1,000 ML IV SCH (20:17)
[2024-09-09] MEDS: ENOXAPARIN 40 MG/0.4 ML SQ SCH (20:19)
[2024-09-09 20:21] VITALS: BMI 38.0
[2024-09-09] MEDS: AMLODIPINE 5 MG TAB PO SCH (21:06)
[2024-09-09] MEDS: NITROGLYCERIN 1 GM PKT TD SCH (21:09)
[2024-09-09] MEDS: Levofloxacin500mg IV 500 MG/100 ML BAG IV SCH (21:11)
[2024-09-10] MEDS ORDERED: METRONIDAZOLE 500mg IVPB 500 MG/100 ML BAG IV SCH (01:00)
[2024-09-10 06:07] LABS: Absolute Eosinophils 0.1 K/uL (0-0.5); Absolute Lymphocytes (CBC) 0.9 K/uL (0.7-4.9); Absolute Monocytes 0.7 K/uL (0.1-1.3); Absolute Neutrophil 4.7 K/uL (1.8-8.0); Basophils % 0.3 % (0-1.3); Eosinophils % 2.3 % (0-4.4); Hematocrit 44.4 % (39.6-49.0); MCH 34.4 pg (27.0-35.0); MCHC 33.9 g/dL (32.0-36.0); MCV 101.6 fL (80-100); MPV 7.4 fL (7.6-11.3); Monocytes % 11.1 % (3.3-12.3); Neutrophils % 72.3 % (41.7-73.7); Nucleated Red Blood Cells % 0.1 % (0-0); Platelets 158 thou/uL (152-406); RBC Red Blood Cell Count 4.37 M/uL (4.33-5.43); Red Cell Distribution Width 14.4 % (12.1-15.2)
[2024-09-10 06:25] LABS: Anion Gap 7.6 mEq/L (5.0-15.0); Magnesium 2.1 mg/dL (1.6-2.4); Potassium 3.6 mEq/L (3.5-5.1)
[2024-09-10] MEDS: CLONIDINE 0.1 MG/PATCH TD SCH (09:00)
[2024-09-10] MEDS: POTASSIUM CL SA 10 MEQ TAB PO ONE (10:13)
--- NOTE | 2024-09-10 18:53 | CON ---
Date of Consultation: 09/10/2024 Diagnosis: History of cirrhosis of liver with liver transplant and also splenorenal shunt. Indications: This is a case of a male, who has a liver transplant as well as a splenorenal shunt wit h complications after the surgery for bleeding and have to be taken back to surgery, but that happene d all in 2019. Since then he has been doing okay and then he had his bloating, has abdominal pain li ke he had this time, but normally resolved on his own and this one did not resolve, so he comes to e ER, had a CAT scan done and was admitted to the hospital for a possibility of bowel obstruction. T he only thing he remembers before this happened he was eating Sauerkraut. Allergies: IODINE, CODEINE. Past Medical History: Includes liver cirrhosis, arthritis, hypertension, chronic back pain. Past Surgical History: Liver transplant with splenorenal shunt. Then, after that complications with it with bleeding, so they have to take him back to surgery and do a second surgery for that. He als o has history of cholecystectomy. Social History: He does not smoke. He does not drink alcohol. Review of Systems: No shortness of breath. No chest pain. Still have bloating and epigastric pain, although no rebound tenderness. Review of systems 10 points otherwise unremarkable. Physical Examination: Vital Signs: Reviewed. General: The patient is awake, alert. HEENT: Pupils are equal and reactive. Anicteric. Neck: Supple. Chest: Clear. Heart: S1, S2. Abdomen: Distended. Multiple incisions in the upper abdomen. There is mild epigastric tenderness, although no peritonitis. Still mild tenderness in that area. Rectal: Deferred. Extremities: Good capillary refill. Laboratory Data: Blood work shows WBC count of 6.5, hemoglobin of 15, platelets of 158. Potassium 3 .6, chloride is 108. CAT scan of the abdomen and pelvis was done on and showed partial small [place] wel obstruction with transition point in the right upper quadrant. Obviously liver transplant and sp lenorenal shunt. Assessment: A 63-year-old patient with partial small bowel obstruction. He believes he had this pro blem before, but this time just getting improved. Patient was admitted to this institution. We expl ained to him the possibility of laparotomy and relief of that, may include also bowel resection. Bec ause he had liver transplant, obviously that brings some challenges from that standpoint. He was adm itted in this institution, but if he had surgery, most likely he will require to have it done in a ce nter like the [facility] where he has his doctor there. The family trying to contact the [facility], but they did not return the phone call yet. In the meantime, while we are here, we m ight have to do small-bowel series and that may help us prove if he is partially obstructed, what deg ree and then from there, we can inform better the [facility] for possible transfer if surgery is re quired and that is what the family wants. RICK/BROCK Voice ID: [id number] Report ID: [id number]
--- NOTE | 2024-09-10 19:49 | HP ---
Date of Admission: 09/10/2024 Chief Complaint: Abdominal pain, nausea, vomiting. History Of Present Illness: This is a 63-year-old male patient who came into emergency room Wednesday night, Wednesday morning and left against medical advice. The patient started to have abdominal pain mostly in the upper abdomen, associated with nausea, vomiting, and had some 3-4 times diarrhea type of bowel movement. After that, he has not had any more nausea, vomiting. No more diarrhea or bowel movement. He came into emergency room Wednesday night, Wednesday morning after he was evaluated in the emergency room, he left against medical advice. Workup done in the emergency room at that time including blood work as well as CAT scan of the abdomen, results reviewed and CAT scan had shown small bowel obstruction, so yesterday during daytime the patient came back to emergency room with this ongoing complaints and was admitted to the hospital. Since his admission to the hospital, he has not had any vomiting or any bowel movement. He is having abdominal pain and responding well to pain medication. Denies any fever or chills. Medications: List reviewed. Review of Systems: GI: As mentioned above. All other systems reviewed and negative. Allergies: TO CODEINE AND IODINE, BOTH CAUSING NAUSEA. 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 Past Surgical History: Liver transplant in 2019, arthroscopic knee surgery, carpal tunnel surgery, hernia repair, surgery for leg fracture and head injury. Family History: Father had colon cancer, diabetes, coronary artery disease and stroke. Social History: Negative for smoking, prior history of alcohol use and he quit using alcohol in a long time. Physical Examination: Vital Signs: Height 5 feet 8 inches, weight 250 pounds, temperature 98.1, pulse 72, respiratory rate 18, blood pressure 145/77, oxygen saturation 94%. General: Awake, alert, oriented, not in distress. HEENT: Head atraumatic, normocephalic. Conjunctivae nonerythematous. Sclerae white. Mouth, no thrush or edema noted. Ears/Nose, no mass, lesion, discharge noted. Neck: Supple. No JVD, lymph nodes, bruit, thyromegaly noted. Lungs: Bilateral good equal air entry. Clear to auscultation. No rhonchi. No rales. Heart: Normal heart sounds, no murmur or gallop. Abdomen: Appears slightly distended. No guarding. No rigidity. No rebound tenderness. The patient does have tenderness in the upper half of abdomen. Bowel sounds are present, slightly tympanic in nature. Extremities: No leg edema. No calf tenderness. Skin: No rash, ulcer, cellulitis. Lymphatics: No lymph node enlargement in neck, supraclavicular, infraclavicular region. Neuro: No focal neurological deficit. Chest: Unremarkable. External Genitalia: Deferred. Rectal: Deferred. Laboratory Data: WBC 6.5, hemoglobin 15, platelets 158. Sodium 140, potassium 3.6, chloride 108, bicarb 28, BUN 13, creatinine 1.28, glucose 110, magnesium 2.1. His blood work from 09/09/2024 had shown WBC 9.4, hemoglobin 16.9, platelets 197. Sodium 137, potassium 4.1, chloride 103, bicarb 28, BUN 13, creatinine 1.18, glucose 111, AST 23, ALT 22, alkaline phosphatase 203, total bilirubin 0.8, lipase 28. Troponin 8.1, magnesium 2.2. His chest x-ray chronic moderate right hemidiaphragm elevation. Minimal right lung fibrosis lower lung region. CAT scan of abdomen and pelvis from 09/09/2024 shows partial small bowel obstruction with transition right upper quadrant and suspected internal hernia, status post cholecystectomy and large left-sided splenorenal shunt. Impression: 1. Small bowel obstruction. 2. Cirrhosis of liver due to alcohol use, status post liver transplant in 2019. 3. Hypertension. 4. Hyperlipidemia. 5. Thrombocytopenia. 6. Hypothyroidism. 7. Impaired fasting glucose. Assessment: We will admit the patient to hospital for further evaluation and management of this problem. The patient is appropriate for inpatient and is expected to spend 2 midnights in hospital. The patient has not had any nausea, vomiting since admission, but if that becomes a problem, then we will have to consider placement of NG tube. We will continue nausea medication and pain medication per order. He is responding well to that. For hypertension, we will monitor blood pressure and manage it accordingly with antihypertensive medication. Amlodipine was continued as of last night and I have ordered nitroglycerin patch as well as clonidine patch for him. While he is n.p.o., we will give IV fluid D5 normal saline. DVT prophylaxis was ordered with Lovenox and empiric antibiotic Levaquin and metronidazole will be given per order. The patient's anti-rejection medication was ordered to be continued as of yesterday. Other medications, we will restart at appropriate time in the future when patient is able to take eat or drink or take medications by mouth in the future. Right now, we will give the most important necessary medications by mouth while he is n.p.o. Total time spent 80 minutes including communication with the emergency room physician, review of emergency room visit record from yesterday as well as from , review of last office visit record and performing today's evaluation and management. I will also communicate details with general surgeon, Dr. Saravia, who was consulted. GENA/BORCK Voice ID: [id number] MTDD
[2024-09-11 00:32] VITALS: O2SAT 96
[2024-09-11 06:25] LABS: Anion Gap 6.2 mEq/L (5.0-15.0); Potassium 4.2 mEq/L (3.5-5.1)
--- NOTE | 2024-09-11 08:13 | RAD REPORT ---
Exam:Abdomen W Erect Clinical history: Abdominal pain FINDINGS: Dilatation of multiple loops of small bowel. Air is present within portions of colon. These findings could indicate an obstruction or adynamic ileus. Free air is not seen beneath the diaphragm
--- NOTE | 2024-09-11 15:54 | PN ---
Date of Progress Note: 09/11/2024 Reason For Service: Partial small bowel obstruction. Subjective: This is the case of a 63-year-old patient with liver transplant, who comes here with par tial small bowel obstruction. He ate some coleslaw and then this happened. He feels better today. Objective: Abdomen: Soft and depressible. No guarding or rebound. No tenderness. Still the x-ray this morning shows some dilated bowel loops. Abdomen is soft and depressible. No gu arding or rebound. Plan: Small bowel series. If we see that this is a complete obstruction in that area, then he may n eed to be transferred for a surgical intervention. If there is none, then we have to decide if diet may be given, although it is going to be hard to determine in the future how to avoid this event agai n, but with some counseling and some education, we might try to only leave the surgery for emergent s ituation considering that his liver transplant and other comorbidities may have to be weighed against the surgery. RICK/BROCK Voice ID: [id number] Report ID: [id number]
[2024-09-11] MEDS: cloNIDine HCL 0.1 MG TAB PO PRN (17:22)
--- NOTE | 2024-09-11 19:09 | RAD REPORT ---
EXAMINATION: Small bowel series CLINICAL INDICATION: Male, 63 years old. partial SBO COMPARISON: No prior exam. FINDINGS: [employer] film shows a nonspecific bowel gas pattern. Mild gaseous distention of several small bowel loop s lower abdomen. No free air. No suspicious calcifications. Gastric size and mucosal fold pattern are normal. Mild gastroesophageal reflux noted. No delay in tra nsit of contrast into the small bowel. Small bowel is normal in diameter with no mucosal fold thickening. No intrinsic or extrinsic mass identifiable. Terminal ileum has normal appearance. Transi t time to the colon is delayed measuring 5 hours.. No fluoroscopy was performed. Total images acquired:16 IMPRESSION: Partial low-grade mechanical obstruction likely present with delayed stomach to colon transit time.
--- NOTE | 2024-09-12 05:43 | PN ---
Date of Progress Note: 09/11/2024 Subjective: The patient was seen this morning for followup. Denies any nausea, vomiting. His abdom inal pain is better as he reports, and denies any bowel movement, but is passing gas per rectum. He is ambulating well. Objective: Vital Signs: Reviewed. HEENT: Unremarkable. Lungs: Clear to auscultation. Heart: Sounds normal. Abdomen: Soft. Bowel sounds normal. No guarding, rigidity, tenderness, distention. Extremities: No leg edema. Laboratory Data: Sodium 142, potassium 4.2, chloride 110, bicarb 30, BUN 10, creatinine 1.18, glucos e 103. Impression: 1. Small bowel obstruction. 2. Status post liver transplant. 3. Hypertension. Plan: We will continue antihypertensive medication per order. Monitor blood pressure, make adjustme nt on medication as it becomes necessary. Ambulation was encouraged. Continue DVT prophylaxis and c urrent antibiotics. Details were discussed with Dr. Saravia who is going to order a small bowel ser ies today. Depending on that result, he will provide further recommendations, but if the patient rec overs spontaneously on his own without any surgical intervention, that is what we are hoping for, but if he does not and continues to have persistent small bowel obstruction, after small bowel series te st result becomes available, then our plan is to transfer him to [place], where his liver transplant team is at [facility] and has initiated contact with the [facility]. GENA/MODL Voice ID: [id number] Report ID: [id number]
[2024-09-12 07:48] LABS: Absolute Eosinophils 0.2 K/uL (0-0.5); Absolute Lymphocytes (CBC) 0.8 K/uL (0.7-4.9); Absolute Monocytes 0.5 K/uL (0.1-1.3); Absolute Neutrophil 2.8 K/uL (1.8-8.0); Basophils % 1.1 % (0-1.3); Eosinophils % 5.6 % (0-4.4); Hematocrit 43.7 % (39.6-49.0); Hemoglobin 14.6 g/dL (13.6-17.9); Lymphocytes % 17.3 % (15.3-44.8); MCH 33.7 pg (27.0-35.0); MCHC 33.3 g/dL (32.0-36.0); MCV 101.4 fL (80-100); Monocytes % 11.9 % (3.3-12.3); Neutrophils % 64.1 % (41.7-73.7); Nucleated Red Blood Cells % 0.6 % (0-0); Platelets 167 thou/uL (152-406); RBC Red Blood Cell Count 4.31 M/uL (4.33-5.43); Red Cell Distribution Width 13.8 % (12.1-15.2)
[2024-09-12 07:58] LABS: Albumin 2.5 g/dL (3.4-5.0); Albumin/Globulin Ratio 0.7 (1.1-1.8); Anion Gap 6.8 mEq/L (5.0-15.0); Bilirubin Total 0.5 mg/dL (0.2-1.0); Globulin 3.7 g/dL (2.3-3.5); Magnesium 1.6 mg/dL (1.6-2.4); Phosphorus 2.5 mg/dL (2.5-4.9); Potassium 3.8 mEq/L (3.5-5.1); Protein, Total 6.2 g/dL (6.4-8.2)
[2024-09-12] MEDS: AMLODIPINE 5 MG TAB PO SCH (08:44)
--- NOTE | 2024-09-12 13:03 | PN ---
Reason For Service: Small bowel obstruction, history of liver transplant. Subjective: The patient is doing better. No nausea, no vomiting. No abdominal pain. The abdomen i s softer and bowel sounds positive. The small bowel series shows partial low-grade mechanical obstru ction with some delayed stomach to colon transit time. Plan: I had discussion with the patient with the primary doctor and also discussed these findings. He understands the low-grade possible obstruction is not new for him since he has complicated surgeri es in the upper abdomen. He wants to try diet first and then address that issue with the Transplant Center. If at any point something have to be done, by any chance he gets sick and he cannot tolerate diet, he will consider then surgical options again. For that, we most likely have to transfer him t o [place]. RICK/BROCK Voice ID: [id number] Report ID: [id number]
--- NOTE | 2024-09-12 21:19 | PN ---
Date of Progress Note: 09/12/2024 Subjective: The patient was seen this morning for followup. His was with him at bedside. Yest erday, he ambulated very well. His abdominal pain is significantly better. No vomiting yesterday. Nausea has practically resolved. He is passing gas per rectum, but no bowel movement yet. Objective: Vital Signs: Reviewed. HEENT: Unremarkable. Lungs: Clear to auscultation. Heart: Sounds normal. Abdomen: Soft. Bowel sounds normal. Abdomen does not appear to be as distended as before. No guar ding or rigidity. No tenderness. Bowel sounds quality is back to normal. Yesterday and day before yesterday, it was tympanic sound, which has resolved today. Extremities: No leg edema. Laboratory Data: CBC and chemistry profile test results reviewed. Impression: 1. Small bowel obstruction. 2. Hypertension. 3. Status post liver transplant. Plan: We will continue his liver transplant medication. We will continue antihypertensive medicatio n, which is amlodipine, clonidine, nitroglycerin patch. As of this morning, I have increased amlodip ine dose from 5 mg at bedtime to twice a day. Continue current empiric antibiotic and IV fluid. Amb ulation was encouraged. Small bowel series test results reviewed with the patient. During the cours e of day today, I did communicate details with Dr. Saravia and his plan was to start the patient on liquid diet today. I will see him tomorrow for followup. GENA/MODL Voice ID: [id number] Report ID: [id number]
[2024-09-13] MEDS: METOPROLOL XL 25 MG TAB PO SCH (09:07)
[2024-09-13] MEDS: LOSARTAN POTASSIUM 50 MG TABLET PO SCH (09:07)
--- NOTE | 2024-09-13 20:24 | PN ---
Date of Progress Note: 09/13/2024 Reason For Service: Partial small-bowel obstruction. The patient is doing well. No complaint. No nausea, no vomiting. No abdominal pain. Tolerating di et, passing flatus. Chest is clear. Abdomen is soft and depressible. No peritonitis. Imaging was discussed with the patient. He understand he has history of partial small-bowel obstruction. He fee ls good. He wants to continue conservative treatment. We had a long discussion about different food combinations that he should diminish just to diminish the chance of bowel obstruction. Again, also take some time to eat, chew his foot properly, and may have to be more meals than just 1 big meal in the afternoon. He understands that. He feels happy with it. We asked him to also follow with his [facility]. RICK/BROCK Voice ID: [id number] Report ID: [id number]
--- NOTE | 2024-09-13 20:44 | PN ---
Date of Progress Note: 09/13/2024 Subjective: The patient was seen this morning for followup. No new complaints or problems reported by patient. He was lying in bed, overall feels a lot better. Abdominal pain has significantly impro shiela and I have advised him not to take any more narcotic pain medication as it may slow down the GI m otility as I explained it to him. He is ambulating well. No nausea, no vomiting. He is passing gas per rectum, but no bowel movement so far. Yesterday, Dr. Saravia started him on liquid diet, which he is tolerating very well. Objective: Vital Signs: Reviewed. HEENT: Unremarkable. Lungs: Clear to auscultation. Heart: Sounds are normal. Abdomen: Soft. Bowel sounds normal. No guarding, rigidity, tenderness, distention. Extremities: No leg edema. Impression: 1. Bowel obstruction. 2. Hypertension. 3. Status post liver transplant. Plan: We will continue current antihypertensive medication. His metoprolol and losartan were added. Continue diet order per Dr. Saravia. Ambulation was encouraged and I will see him tomorrow for nickiwgillian. I have discussed details with Dr. Saravia as well today. Plan is to [place] once he has a bowel movement. This was discussed with the patient this morning when I saw him. GENA/MODL Voice ID: [id number] Report ID: [id number]
[2024-09-14 08:06] VITALS: BP 146/86; TEMP 98.4
== END 2024-09-14 09:39 | disposition home or self-care (01) | DRG 389 ==
LOC: ER 14:00 → ERHOLD 16:16 → 4TH 17:11
PROVIDERS: ADMIT Internal Medicine; ATTEND Internal Medicine
DX: K56.600 Partial intestinal obstruction, unspecified as to cause (principal); Z94.4 Liver transplant status; E03.9 Hypothyroidism, unspecified; K70.30 Alcoholic cirrhosis of liver without ascites; I12.9 Hypertensive chronic kidney disease with stage 1 through stage 4 chronic kidney disease, or unspecified chronic kidney disease; N18.9 Chronic kidney disease, unspecified; R73.01 Impaired fasting glucose; Z88.5 Allergy status to narcotic agent; Z90.49 Acquired absence of other specified parts of digestive tract
CPT/HCPCS: 36415; 71045; 74019; 74177; 74250; 80048; 80053; 80076; 83690; 83735; 84100; 84484; 85025; 85610; 93005; 96361; 96374; 96375; 99284; 99285; J1171; J1650; J2405; J2470; J2765; J7030; J7040; J7042; Q9967